=== PATIENT | female | born 1935 | race Caucasian/White ===

== ENCOUNTER → 2016-04-24 | Outpatient (CLI) | payer OTHER ==
[~2016-04-24] MED LIST: ACET-1256 PO; ASPEC81 PO; ASPI81TA28 PO; ASTN NAE; AZELASTINE NASAL NAE; CALC500C70 PO; CLR10 PO; DULO-24 PO; FLUT110A INH; FLVHFA110 INH; GABA-113 PO; GABA1CAP5 PO; HYDR25TA5 PO; KLN5X PO; LOSA50TA54 PO; METO25TA56 PO; OMEP10CA2 PO; OMEP20CA9 PO; OXYC-57 PO; POLYSOL4 OPB; ROSU40TA PO; TOFA1TAB PO
[2016-04-24 11:05] LABS: BASO % 0.4 %; BASO ABS # 0.02 K/uL (0-0.2); COMPLETE YES; EOS % 1.7 %; HEMATOCRIT 35.6 % (37-47); IG% 0.2 %; LYMPH % 25.2 %; LYMPH ABS # 1.31 K/uL (1.2-3.4); MEAN CELL VOLUME 94.2 fL (80-100); MEAN CORPUSCULAR HGB CONC 32.9 g/dl (32-36); MEAN PLATELET VOLUME 10.2 fL (7.4-10.4); MONO % 7.1 %; NEUT % 65.4 %; PLATELET COUNT 240 K/uL (130-400); RED BLOOD COUNT 3.78 M/uL (4.2-5.4)
== END | disposition home or self-care (01) ==
LOC: C.LABBC 08:36
PROVIDERS: ATTEND Anesthesiology
DX: Z01.812 Encounter for preprocedural laboratory examination (principal)

== ENCOUNTER → 2016-08-13 | Outpatient (CLI) | payer OTHER ==
[2016-08-13 13:31] LABS: BASO % 0.5 %; BASO ABS # 0.03 K/uL (0-0.2); COMPLETE YES; EOS % 2.1 %; HEMATOCRIT 36.7 % (37-47); IG% 0.4 %; LYMPH % 28.7 %; LYMPH ABS # 1.62 K/uL (1.2-3.4); MEAN CELL VOLUME 96.3 fL (80-100); MEAN CORPUSCULAR HEMOGLOBIN 31.2 pg (25-34); MEAN CORPUSCULAR HGB CONC 32.4 g/dl (32-36); MEAN PLATELET VOLUME 10.3 fL (7.4-10.4); MONO % 11.2 %; NEUT % 57.1 %; PLATELET COUNT 285 K/uL (130-400); RED BLOOD COUNT 3.81 M/uL (4.2-5.4); WHITE BLOOD COUNT 5.65 K/uL (4.8-10.8)
== END | disposition home or self-care (01) ==
LOC: C.LABBC 11:38
PROVIDERS: ATTEND Physician Assistant
DX: Z01.812 Encounter for preprocedural laboratory examination (principal)

== ENCOUNTER → 2016-10-20 | Outpatient (CLI) | payer OTHER ==
[2016-10-20 10:54] LABS: BASO % 0.4 %; BASO ABS # 0.02 K/uL (0-0.2); COMPLETE YES; EOS % 2.6 %; HEMATOCRIT 38.4 % (37-47); IG% 0.4 %; LYMPH % 30.2 %; LYMPH ABS # 1.53 K/uL (1.2-3.4); MEAN CELL VOLUME 97.5 fL (80-100); MEAN CORPUSCULAR HEMOGLOBIN 31.5 pg (25-34); MEAN CORPUSCULAR HGB CONC 32.3 g/dl (32-36); MONO % 11.8 %; NEUT % 54.6 %; PLATELET COUNT 303 K/uL (130-400); RED BLOOD COUNT 3.94 M/uL (4.2-5.4); WHITE BLOOD COUNT 5.07 K/uL (4.8-10.8)
== END | disposition home or self-care (01) ==
LOC: C.LABBC 09:11
PROVIDERS: ATTEND Anesthesiology
DX: Z01.812 Encounter for preprocedural laboratory examination (principal)

== ENCOUNTER 2016-12-11 07:29 | Emergency (ER) | payer OTHER ==
[~2016-12-11] VITALS: Ht 165.1 cm; Wt 75.2 kg
[~2016-12-11 07:29] MED LIST changes: -ASPI81TA28 PO; -ASTN NAE; -FLVHFA110 INH; -GABA1CAP5 PO; -LOSA50TA54 PO; -OMEP20CA9 PO; -OXYC-57 PO
[2016-12-11 07:35] VITALS: TEMP 37.2; Ht 165.1 cm; Wt 75.2 kg
[2016-12-11] MEDS ORDERED: ASTN NAE (07:37)
[2016-12-11] MEDS ORDERED: OMEP20CA9 PO (07:37)
[2016-12-11] MEDS ORDERED: FLVHFA110 INH (07:37)
[2016-12-11] MEDS ORDERED: ASPI81TA28 PO (07:37)
[2016-12-11] MEDS ORDERED: OXYCODONE/ACETAMINOPHEN 5-325 TAB PO STA (07:51)
[2016-12-11] MEDS ORDERED: LOSA50TA54 PO (07:54)
--- NOTE | 2016-12-11 08:05 | EMERGENCY ROOM VISIT NOTE ---
ED Visit Note First contact with patient: 07:47 CHIEF COMPLAINT: Wrist injury HISTORY OF PRESENT ILLNESS: This 81-year-old female patient presents to the emergency department complaining of pain in the left wrist after fall yesterday morning. She states that she tripped and fell onto her outstretched left hand to catch her fall. She has had increasing pain, swelling and bruising of the left hand and wrist since the injury. The patient is fairly able to move their wrist. The patient states the pain is throbbing and 9/10. She reports tingling in her thumb, second and third fingers, but no numbness. No laceration, no weakness. The patient denies any other injury. The patient is able to move their fingers and elbow without difficulty. The patient has not had a previous fracture to this wrist. The patient has taken no medications for the pain. She is right-hand dominant. REVIEW OF SYSTEMS: A 6 system review of systems was performed with positives and pertinent negatives in the HPI. ALLERGIES: Reviewed in chart MEDICATIONS: Reviewed in chart PMH: Reviewed in chart SOCIAL HISTORY: Lives at home with her . She denies tobacco, alcohol, recreational drug use. PHYSICAL EXAM: Vital Signs: Reviewed Nurse's notes, vital signs stable. GENERAL : Pleasant and cooperative, in no acute distress, but appears to be in pain, well-developed, well-nourished. NEURO: Alert and oriented to person place and time. Normal sensation to light and sharp touch. MUSCULOSKELETAL: There is no deformity of the left wrist. There is moderate tenderness, ecchymosis, and edema over the left hand wrist and distal forearm. There is snuff box tenderness. Range of motion is significantly limited due to pain. There is no tenderness of the elbow, hand or fingers. [employer] strength 4/5. Radial pulse 2+. SKIN: Normal and intact. The hand is warm and well perfused with capillary refill less than 2 seconds. IMAGING: L WRIST W/NAVICULAR MIN 3 VIEWS, L HAND MIN 3 VIEWS ROUTINE CLINICAL HISTORY: FALL YESTERDAY. Left hand and left wrist pain. COMPARISON STUDY: None. FINDINGS: Diffuse soft tissue swelling within the distal forearm and wrist. 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 Nondisplaced scaphoid waist fracture. There is also a slightly impacted fracture of the distal radius. This appears to demonstrate intra-articular extension. The ulna is intact. The distal radius fracture may demonstrate partial healing and could be subacute. Moderate osteoarthritis at the majority of the MCP joints. Soft tissue swelling within the thumb and index finger. No additional fractures identified within the left hand. IMPRESSION: 1. Nondisplaced scaphoid waist fracture. 2. Slightly impacted left distal radius fracture. This may represent a subacute/healing fracture. 3. No additional fractures within the left hand. EMERGENCY DEPARTMENT COURSE: I examined the patient. An X-ray of the left wrist was reviewed by myself and radiologist and showed acute distal radius fracture and nondisplaced scaphoid fracture. A reverse sugar tong Ortho-Glass splint was placed under my direction and the position was satisfactory. She was given a sling for comfort. Neurovascular status rechecked and intact. The patient was discharged home in good condition. I spoke over the phone with Dr. Giraldo, at [facility] orthopedics, he said the patient can come over to clinic today for evaluation. Patient was updated on all results and plan for discharge as well as her follow up with orthopedic clinic today. Patient was also instructed on return precautions should her symptoms worsen in any way, she verbalized understanding. Patient was discharged home in stable condition and ambulatory. Medication Reconciliation: I attest that I have personally reviewed the patient' s current medication list. Blood pressure screening: The patient was found to have an elevated blood pressure and was referred to their primary doctor for recheck and further treatment. I discussed patient with Dr. Carrizales, who also saw the patient and agrees with my assessment and plan. Current/Historical Medications Scheduled Acetaminophen (Tylenol), 2 TAB PO Q6 Aspirin (Aspirin Ec), 81 MG PO QAM Calcium/Vitamin D (Os-[place] 500 Plus D), 1 TAB PO QAM Gabapentin (Neurontin), 300 MG PO TID Hydrochlorothiazide (Hydrochlorothiazide), 25 MG PO 3XWK Losartan Potassium (Cozaar), 50 MG PO DAILY Metoprolol Tartrate (Lopressor) (Lopressor), 12.5 MG PO BID Omeprazole (Prilosec), 20 MG PO UD Rosuvastatin Calcium (Crestor), 40 MG PO QPM Tofacitinib Citrate (Xeljanz), 5 MG PO BID Scheduled PRN Clonazepam (Clonazepam), 0.5 MG PO HS PRN for PRN Loratadine (Claritin), 10 MG PO DAILY PRN for PRN Oxycodone/Acetaminophen 5MG/325MG (Percocet 5MG/325MG), 1-2 TABS PO every 6 hours PRN for Pain Polyethylene Glycol-Propylene (Systane), 1 DROP OPB DAILY PRN for PRN Allergies Coded Allergies: Morphine (Verified Allergy, Severe, SHORTNESS OF BREATH, 12/11/16) Shrimp (Verified Allergy, Severe, GI SYMPTOMS, 12/11/16) Sulfa Antibiotics (Verified Allergy, Intermediate, HIVES, 12/11/16) *unknown if this was an antibiotic or not- changed with [employer] update Benzonatate (Verified Allergy, Unknown, GI UPSET, 12/11/16) Codeine (Verified Allergy, Unknown, NAUSEA, 12/11/16) Lisinopril (Verified Allergy, Unknown, GI SYMPTOMS, 12/11/16) Adhesives (Verified Adverse Reaction, Intermediate, TAPE - RASH, 12/11/16) Vital Signs Date Time Temp Pulse Resp B/P (MAP) Pulse Ox O2 Delivery O2 Flow Rate FiO2 12/11/16 10:42 100 163/99 92 12/11/16 09:25 81 137/64 92 Room Air 12/11/16 07:35 37.2 106 20 165/84 95 Room Air Medications Administered Medications (Trade) Dose Ordered Sig/Jose Angel Route Start Time Stop Time Status Last Admin Dose Admin Oxycodone/ Acetaminophen (Percocet 5-325mg Tab) 1 tab NOW STAT PO 12/11/16 07:51 12/11/16 07:55 DC 12/11/16 08:00 1 TAB Tramadol HCl (Ultram Tab) 50 mg NOW STAT PO 12/11/16 09:47 12/11/16 09:48 DC 12/11/16 09:52 50 MG Departure Information Impression Primary Impression: Fracture of scaphoid of left wrist Additional Impression: Fracture of left distal radius Dispostion Home / Self-Care Condition GOOD Prescriptions Oxycodone/Acetaminophen 5MG/325MG (PERCOCET 5MG/325MG) Tab 1-2 TABS PO every 6 hours Y for Pain, #20 TAB For Initial Treatment Prov: Jumana Ellis CRNP 12/11/16 Referrals Mary Lou Leonard D.O. (PCP) Patient Instructions Distal Radius Fx, ED Fx Wrist Navicular Conf, My [facility] Additional Instructions Follow up with [facility] today at clinic. You may go straight to the clinic to be seen. Keep the splint in place, and do not get it wet. Apply ice to the wrist and keep the wrist elevated for 24-48 hrs. Percocet 1-2 tabs every 6 hours as needed for severe pain. This is a narcotic, do not drive, operate machinery, or drink alcohol while you're taking it. This medication may make you constipated, you should take a stool softener daily while you're taking it to help prevent constipation. Continue follow-up with orthopedic surgery as scheduled. Please return to the emergency Department for severe worsening pain, numbness or discoloration in your fingers, fevers or chills, or any other concerns. Problem Qualifiers Primary Impression: Fracture of scaphoid of left wrist Encounter type: initial encounter Scaphoid bone location: unspecified portion of scaphoid Fracture type: closed Fracture alignment: nondisplaced Qualified Codes: S62.002A - Unspecified fracture of navicular [scaphoid] bone of left wrist, initial encounter for closed fracture Additional Impression: Fracture of left distal radius Encounter type: initial encounter Fracture type: closed Fracture morphology : unspecified fracture morphology Qualified Codes: S52.502A - Unspecified fracture of the lower end of left radius, initial encounter for closed fracture
--- NOTE | 2016-12-11 08:43 | DIAGNOSTIC IMAGING REPORT ---
L WRIST W/NAVICULAR MIN 3 VIEWS, L HAND MIN 3 VIEWS ROUTINE CLINICAL HISTORY: FALL YESTERDAY. Left hand and left wrist pain. COMPARISON STUDY: None. FINDINGS: Diffuse soft tissue swelling within the distal forearm and wrist. 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 Nondisplaced scaphoid waist fracture. There is also a slightly impacted fracture of the distal radius. This appears to demonstrate intra-articular extension. The ulna is intact. The distal radius fracture may demonstrate partial healing and could be subacute. Moderate osteoarthritis at the majority of the MCP joints. Soft tissue swelling within the thumb and index finger. No additional fractures identified within the left hand. IMPRESSION: 1. Nondisplaced scaphoid waist fracture. 2. Slightly impacted left distal radius fracture. This may represent a subacute/healing fracture. 3. No additional fractures within the left hand. Electronically signed by: Eyad Gabriel M.D. 12/11/2016 8:42 AM Dictated Date/Time: 12/11/2016 8:37 AM
--- NOTE | 2016-12-11 09:20 | EMERGENCY ROOM VISIT NOTE ---
ED Visit Note First contact with patient: 07:47 Patient was seen by our PA/APPLICATIONS ENGINEERING MANAGER. I was involved in the patient's care and did evaluate the patient myself. I was involved in the care throughout the ER stay. Patient has a wrist fracture by film. Orthopedic follow-up is required. The patient was splinted while in the ED.
[2016-12-11] MEDS ORDERED: TRAMADOL HCL 50 MG TAB PO STA (09:47)
[2016-12-11] MEDS ORDERED: OXYC-57 PO (10:09)
[2016-12-11 10:42] VITALS: BP 163/99; PULSE 100; O2SAT 92
== END 2016-12-11 10:35 | disposition home or self-care (01) ==
LOC: C.EDB 07:31
DX: S62.002A Unspecified fracture of navicular [scaphoid] bone of left wrist, initial encounter for closed fracture (principal); S52.502A Unspecified fracture of the lower end of left radius, initial encounter for closed fracture; S60.222A Contusion of left hand, initial encounter; W01.0XXA Fall on same level from slipping, tripping and stumbling without subsequent striking against object, initial encounter; Z79.899 Other long term (current) drug therapy

== ENCOUNTER → 2017-02-26 | Outpatient (CLI) | payer OTHER ==
[~2017-02-26] MED LIST changes: -ASPEC81 PO; +ASPI81TA28 PO; -AZELASTINE NASAL NAE; -DULO-24 PO; -FLUT110A INH; +LOSA50TA54 PO; -OMEP10CA2 PO; +OMEP20CA9 PO; +OXYC-57 PO
[2017-02-26 13:41] LABS: BASO % 0.6 %; BASO ABS # 0.03 K/uL (0-0.2); COMPLETE YES; EOS % 1.7 %; HEMATOCRIT 36.4 % (37-47); IG% 0.2 %; LYMPH % 32.1 %; LYMPH ABS # 1.54 K/uL (1.2-3.4); MEAN CELL VOLUME 94.3 fL (80-100); MEAN CORPUSCULAR HEMOGLOBIN 30.3 pg (25-34); MEAN CORPUSCULAR HGB CONC 32.1 g/dl (32-36); MEAN PLATELET VOLUME 10.1 fL (7.4-10.4); MONO % 9.6 %; NEUT % 55.8 %; PLATELET COUNT 270 K/uL (130-400); RED BLOOD COUNT 3.86 M/uL (4.2-5.4)
== END | disposition home or self-care (01) ==
LOC: C.LABBC 09:26
PROVIDERS: ATTEND Anesthesiology
DX: Z01.812 Encounter for preprocedural laboratory examination (principal)

== ENCOUNTER → 2017-10-15 | Outpatient (CLI) | payer OTHER ==
[~2017-10-15] MED LIST changes: -CLR10 PO; -OXYC-57 PO; -POLYSOL4 OPB
[2017-10-15 10:39] LABS: BASO % 0.5 %; BASO ABS # 0.02 K/uL (0-0.2); EOS % 3.4 %; EOS ABS # 0.14 K/uL (0-0.5); HEMATOCRIT 36.7 % (37-47); LYMPH % 34.7 %; LYMPH ABS # 1.44 K/uL (1.2-3.4); MEAN CELL VOLUME 92.9 fL (80-100); MEAN CORPUSCULAR HEMOGLOBIN 30.4 pg (25-34); MEAN CORPUSCULAR HGB CONC 32.7 g/dl (32-36); MEAN PLATELET VOLUME 10.5 fL (7.4-10.4); MONO % 9.6 %; NEUT % 51.8 %; NEUT ABS # 2.15 K/uL (1.4-6.5); PLATELET COUNT 251 K/uL (130-400); RED CELL DISTRIBUTION WIDTH CV 14.9 % (11.5-14.5); RED CELL DISTRIBUTION WIDTH SD 50.8 fL (36.4-46.3); WHITE BLOOD COUNT 4.15 K/uL (4.8-10.8)
== END | disposition home or self-care (01) ==
LOC: C.LABBC 08:04
PROVIDERS: ATTEND Anesthesiology
DX: Z01.82 Encounter for allergy testing (principal); M54.5 Low back pain

== ENCOUNTER 2020-10-17 12:56 | Observation (INO) ==
[2020-10-17 14:33] LABS: Basophils # (auto) 0.01 K/uL (0-0.2); Basophils % (auto) 0.2 %; Eosinophils # (auto) 0.02 K/uL (0-0.5); Eosinophils % (auto) 0.3 %; Hematocrit (blood only) 36.9 % (37-47); Hemoglobin 11.8 g/dL (12.0-16.0); Immature Granulocytes # (auto) 0.03 K/uL (0.00-0.02); Immature Granulocytes % (auto) 0.5 %; Lymphocytes # (auto) 0.62 K/uL (1.2-3.4); Lymphocytes % (auto) 9.7 %; Mean Platelet Volume 10.2 fL (7.4-10.4); Monocytes # (auto) 0.96 K/uL (0.11-0.59); Neutrophils # (auto) 4.78 K/uL (1.4-6.5); Neutrophils % (auto) 74.3 %; Platelet Count 271 K/uL (130-400); RDW Coefficient of Variation 14.8 % (11.5-14.5); Red Blood Count 3.69 M/uL (4.2-5.4); White Blood Count 6.42 K/uL (4.8-10.8)
--- NOTE | 2020-10-17 14:38 | Communication Note ---
Date of Service: October 17, 2020 This patient was seen in concert with Dr. Buchanan and we discussed and agreed upon the history, physical, assessment, and plan. See attending's note for d etails. Resident Activity Tracking Resident Involvement: Resident Care Provided Care Provided: Adult ED
[2020-10-17 14:40] LABS: Albumin Level 3.5 gm/dl (3.4-5.0); BUN Creatinine Ratio 15.5 (10-20); Calcium 8.8 mg/dl (8.5-10.1); Creatinine Clr Calc Pharmacy 35.2 ml/min; Est GFR (African American) 51.1 ml/min; Est GFR (Non-African American) 44.1 ml/min; Magnesium 2.1 mg/dl (1.8-2.4); Potassium 3.8 mmol/L (3.5-5.1)
[2020-10-17 14:42] LABS: Prothrombin Time 10.3 Seconds (9.0-12.0)
[2020-10-17 14:51] LABS: Albumin Globulin Ratio 0.9 (0.9-2); Bilirubin,Total 0.4 mg/dl (0.2-1); Globulin 3.8 gm/dl (2.5-4.0); Thyroid Stimulating Hormone 0.54 uIu/ml (0.300-4.500); Total Protein 7.3 gm/dl (6.4-8.2)
--- NOTE | 2020-10-17 15:17 | CT Scan Report ---
CT head/brain wo con CLINICAL HISTORY: 85 years-old Female with bilateral lower extremity weakness. Acute lower extremity weakness TECHNIQUE: Multiple axial CT images of the head were obtained without contrast. A dose lowering tech nique was utilized adhering to the principles of ALARA. CT DOSE: 788.63 mGycm COMPARISON: None. FINDINGS: No acute intracranial hemorrhage, midline shift, intracranial mass, hydrocephalus, territorial ischem ia or abnormal extra-axial collection. Age-related involutional changes. White matter hypodensities s uggestive of chronic microvascular ischemic disease. Senescent calcifications of the lentiform nuclei . Cerebral vascular calcifications. The calvarium is intact. Prior bilateral lens repair. The paranasal sinuses, mastoid air cells, and m iddle ear cavities are clear. IMPRESSION: No acute intracranial abnormality. ACT 112: Negative or not required by law. The above report was generated using voice recognition software. It may contain grammatical, syntax o r spelling errors. Electronically signed by: Gideon Turner M.D. 10/17/2020 3:15 PM
--- NOTE | 2020-10-17 15:40 | XRay Report ---
SINGLE VIEW CHEST CLINICAL HISTORY: Generalized weakness. FINDINGS: An AP, portable, upright chest radiograph is compared to study dated 12/25/2018. An electro nathalie device projects over the lower chest. The heart is enlarged noting atherosclerotic calcification of the thoracic aorta. The pulmonary vasculature is noncongested. There is bibasilar scarring/atelect asis. No airspace consolidation or large pleural effusion is identified. No pneumothorax is seen. The skeletal structures are osteopenic. The bony thorax is grossly intact. A right shoulder arthroplasty is in place. Advanced arthritic change is seen in the left shoulder. IMPRESSION: Cardiomegaly with no acute cardiopulmonary abnormality. ACT 112: Negative or not required by law. Electronically signed by: Preston Hammonds M.D. 10/17/2020 3:38 PM
[2020-10-17] MEDS ORDERED: SODIUM CHLORIDE 0.9% 500 ML IV ONE (15:55)
[2020-10-17] MEDS ORDERED: ACETAMINOPHEN 500 MG TAB PO STA (15:55)
--- NOTE | 2020-10-17 16:05 | CT Scan Report ---
CT SCAN OF THE LUMBAR SPINE WITHOUT IV CONTRAST CLINICAL HISTORY: Bilateral lower extremity weakness. COMPARISON STUDY: MRI of the lumbar spine dated 04/10/2019. TECHNIQUE: CT scan of the lumbar spine is performed from the lower thoracic spine to the upper lumbar spine. Images are reviewed in the axial, sagittal, and coronal planes. IV contrast was not administe red for this examination. A dose lowering technique was utilized adhering to the principles of ALARA. The examination is compromised by streak artifact from extensive metallic spinal hardware. CT DOSE: 609.07 mGycm FINDINGS: The skeletal structures are osteopenic. There is a severe chronic compression deformity of L1 with minimally retropulsed fragments. A moderate chronic compression of L2 and a mild compression deformity of L4 are also unchanged. There is a moderate compression deformity of L3. This is age-inde terminant, but new from 04/10/2019. No definite acute fracture line is identified. The transverse proc esses appear intact. Vertebral body height is maintained at L5. There is straightening of the lumbar lordosis. Mild dextrocurvature is centered at L2. There is postoperative change from posterior spinal fusion seen from L2-L4. Interpedicular screws are present at all levels. Lucency around the right in terpedicular screw at L3 and both interpedicular screws at L4 suggests loosening. There is severe dis c space narrowing at L4-L5 and L5-S1. Mild disc space narrowing is seen at the remaining lumbar level s. Posterior disc osteophyte complexes are seen at all lumbar levels and likely contribute to multile zeke acquired compromise of the central canal. Advanced facet arthropathy is seen in the lower lumbar region. There is no evidence of spondylolysis. No lytic or blastic lesion is seen. A sacral stimulato r device is present within the right gluteal soft tissues. The visualized sacrum and bony pelvis appe ar intact. There are healed right posterior rib fractures. There is fatty atrophy of the paraspinous musculature. A 3 cm chronic postoperative seroma is again suggested within the posterior aspect of th e thecal sac at L3-L4. This was better seen on the 04/10/2019 MRI. There is advanced atherosclerotic c alcification of the abdominal aorta. No retroperitoneal lymphadenopathy is identified. IMPRESSION: 1. There is a moderate compression deformity of L3. This is age-indeterminant, but new from 04/10/2019 . There is no significant retropulsion of fragments at this level. Correlate for point tenderness. 2. Additional chronic compression deformities as above. 3. Spondylotic and postoperative change as above. Findings suggest lucency around the right interpedi cular screw at L3 and the interpedicular screw at L4. 4. Additional findings as above. ACT 112: Negative or not required by law. Dictated: 10/17/2020 3:21 PM Transcribed: 10/17/2020 3:53 PM Verena [id number] [email or web address] Electronically signed by: Preston Hammonds M.D. 10/17/2020 4:04 PM
--- NOTE | 2020-10-17 16:28 | Emergency Department Note ---
Impression & Plan SARS-CoV-2 positive, Weakness, Rheumatoid arthritis ED Provider Note NAME: SUNITA CARRIZALES AGE: 85 SEX: F : 1935 ARRIVES VIA: Ambulance INFORMANT: Patient, ED PROVIDER(S): Felipe Buchanan MD CHIEF COMPLAINT: weakness HPI: Sunita is an 85-year-old female with a notable past medical history of rheumatoid arthritis, lumbar spinal stenosis status post laminectomy, coronary artery disease, hypertension, osteoporosis who presented to [facility] for evaluation of weakness. Reports that yesterday night, was getting out of bed when she felt "profoundly weak" and fell out of bed. She was unable to get up. [place] like she could still move her legs, but they were extremely weak. She did not hit her head during this fall. Denies any pain. Says that over the last several days, she has had a cough. Has felt intermittent chills. Appetite has been poor. Daughter recently tested positive for Covid. Patient is fully vaccinated. Otherwise, she says she was in her normal health up until about 3 to 4 days ago. She denies any pain at present, denies any numbness or tingling, double vision, headache, nausea, vomiting, chest pain, palpitations, shortness of breath. ROS: See above HPI for pertinent positives & negatives. A total of 10 systems reviewed and were otherwise negative. PAST MEDICAL HISTORY: See Below PAST SURGICAL HISTORY: See Below FAMILY HISTORY: See Below SOCIAL HISTORY: See Below HOME MEDICATIONS: See Below ALLERGIES: See Below VITALS: See Below PHYSICAL EXAMINATION: VITAL SIGNS - Vital signs and nursing notes were reviewed. GENERAL - 85-year-old female appearing stated age who is in no acute distress. Communicates well with provider and answers questions appropriately. SKIN - Without rashes. HEAD - NC/AT. EYES - PERRL with EOMI bilaterally. Sclera anicteric. Palpebral conjunctiva pink and moist with no injection noted. EARS - No deformities of external structures noted on gross examination bilaterally. NOSE - Midline and without cyanosis. No epistaxis or purulent drainage noted. Septum midline without deviation or septal hematoma noted. MOUTH/OROPHARYNX - Without perioral cyanosis. Buccal mucosa pink and moist and without leukoplakia. Tongue midline with equal elevation of palate bilaterally. No tonsillar hypertrophy, erythema, or exudates noted. NECK - Neck with FROM. Supple to palpation. LUNGS - Chest wall symmetric without accessory muscle use, intercostals retractions, or central cyanosis. Normal vesicular breath sounds CTA B/L. No wheezes, rales, or rhonchi appreciated. CARDIAC - RRR with S1/S2. No murmur, rubs, or gallops appreciated. ABDOMEN - Abdominal contour without pulsations or visible masses. BS normoactive all four quadrants. No tenderness, palpable masses, hepatosplenomegaly, or ascites noted. EXTREMITIES - No clubbing or peripheral cyanosis. No pretibial edema present. +3/5 radial, posterior tibial, and dorsalis pedis pulses palpated throughout. +5/5 strength noted in UE/LE bilaterally. NEUROLOGIC - Cranial nerves II through XII grossly intact. Sensory intact to light touch throughout. Patellar reflexes +2/4. PSYCH - A&Ox3 and cooperates fully with examiner. Pt is very pleasant and interacts well with examiner. MEDICAL DECISION MAKING: Patient was seen and evaluated as above in room C10. Review was performed of nursing notes and vital signs. I did review pertinent previous visits and patient history. After obtaining a thorough history and physical examination the above work up was performed. This is an 85 year old female who presents to the emergency department with generalized weakness. The patient is positive for Covid. Chest chest x-ray was interpreted by me and is consistent with a viral illness. She does not have an elevation in her white blood cell count has a normal renal profile. The patient feels that she is too weak to be discharged therefore she was discussed with the hospitalist service who did agree to admit the patient. While in the department, I personally reevaluated the patient several times and each time the patient was found to be resting comfortably. The patient was educated upon management, educated upon todays findings/results, educated upon importance of follow up from today's visit, educated upon symptoms in which to return, had questions answered prior to discharge, verbalized understanding, and was discharged home in good condition. An order was placed for continuous cardiac monitoring. The monitor shows a rate of 50 with Sinus Bradycardia rhythm. The patient was evaluated during a period of high volume and high acuity during the global COVID-19 pandemic, and that diagnosis was suspected/considered upon their initial presentation. Their evaluation, treatment and testing was consistent with current guidelines for patients who present with complaints or symptoms that may be related to COVID-19. Patient was seen while provider was wearing PPE. Triage Nursing notes reviewed. Prior medical records reviewed Vital Signs: reviewed and remarkable for no significant abnormalities Differential diagnosis: Infection, dehydration, metabolic abnormality, hypo/hyperglycemia, electrolyte disturbance, anemia, hypoxia, cardiac sources, intracerebral event, toxicologic, neurologic, as well as other pathologies. ER treatment provided: See below Diagnostics interpreted by me: ECG: EKG shows a sinus rhythm with occasional PVC QTC is 433 ventricular rate of 78 EKG is compared to 12/25/2018 PVCs are now present there is no ST elevation or depression Laboratory studies: As stated above and show below. Imaging studies: See below Consultation(s): Internal Medicine ED COURSE: I have personally spent greater than 30 minutes of critical care time in the direct management of this patient. This includes bedside care, interpretation of diagnostic studies, and testing, discussion with consultants, patient, and family members, and other required patient management activities. This 30 m inutes is in excess of all separately billable procedures. Procedures: none Past Med/Surg History Medical History Acquired right foot drop Arachnoiditis CAD (coronary artery disease) Cervical radiculopathy Degenerative joint disease of knee Dyslipidemia Facet syndrome, lumbar Greater trochanteric bursitis Hypertension Left knee pain Lumbago Lumbar compression fracture L1 acute on chronic MRI 03/2019 Lumbar postlaminectomy syndrome Lumbar radiculitis Lumbar spinal stenosis Myocardial infarct, old Osteoarthritis Osteoporosis Peripheral neuropathy Pes anserinus tendonitis of right lower extremity Postoperative seroma L2-4 Rheumatoid arthritis Rheumatoid arthritis of shoulder Right knee pain Status post TKA taking shots due to bursitis Right knee pain Surgical History History of adenoidectomy History of angioplasty History of breast biopsy History of hysterectomy History of loop recorder follows with Dr Bergeron History of lumbosacral spine surgery flexible rainer and does lesi History of PTCA History of tonsillectomy History of total shoulder replacement Right S/P total knee arthroplasty Right Family History Father Myocardial infarction Brother Myocardial infarction Other Family history non-contributory Denies family history of Ovarian cancer Prostate cancer Breast cancer Colorectal cancer Social History Smoking Status: Never smoker Second Hand Exposure: No; Hx Alcohol Use: Yes Alcohol type: wine Hx Substance Use: No Preferred Language: Belgian Communication Ability: Effective Visual Impairment: No Limitations Hearing Ability: Normal Framing And Hanging Required: No Beliefs That Will Affect Care: None marital status: Current Living Situation: Spouse current occupational status: retired Feels Safe at Home: Yes Assistive Devices: Walker Allergies Allergies Allergy/AdvReac Type Severity Reaction Status Date / Time morphine Allergy Severe SHORTNESS Verified 10/17/20 14:34 OF BREATH shrimp Allergy Severe GI SYMPTOMS Verified 10/17/20 14:34 Sulfa (Sulfonamide Allergy Intermediate HIVES Verified 10/17/20 14:34 Antibiotics) benzonatate Allergy Unknown GI UPSET Verified 10/17/20 14:34 codeine Allergy Unknown NAUSEA Verified 10/17/20 14:34 lisinopril Allergy Unknown GI SYMPTOMS Verified 10/17/20 14:34 adhesive AdvReac Intermediate TAPE - RASH Verified 10/17/20 14:34 tramadol AdvReac Intermediate Nausea Verified 10/17/20 14:34 Home Meds Home Medications Medication Instructions Recorded Confirmed clonazepam 0.5 mg tablet 0.5 mg PO HS PRN tab 11/14/17 10/17/20 hydrochlorothiazide 25 mg tablet 25 mg PO MOWEFR tab 11/14/17 10/17/20 rosuvastatin 40 mg tablet (Crestor) 40 mg PO QPM 11/14/17 10/17/20 aspirin 81 mg tablet,delayed 81 mg PO MOWEFR tab 02/06/18 10/17/20 release (Adult Low Dose Aspirin) gabapentin 300 mg capsule 300 mg PO BID 12/25/18 10/17/20 gabapentin 300 mg capsule 600 mg PO HS 12/25/18 10/17/20 metoprolol succinate 25 mg 37.5 mg PO QAM 12/25/18 10/17/20 tablet,extended release 24 hr (Toprol XL) simethicone 125 mg chewable tablet 125 mg PO BID PRN 12/25/18 10/17/20 tofacitinib 11 mg tablet,extended 11 mg PO DAILY 12/25/18 10/17/20 release 24 hr (Xeljanz XR) baclofen 10 mg tablet 10 mg PO TID PRN tab 07/31/19 10/17/20 amlodipine 2.5 mg tablet 2.5 mg PO DAILY 06/10/20 10/17/20 losartan 50 mg tablet (Cozaar) 50 mg PO DAILY tab 06/21/20 10/17/20 albuterol sulfate 90 mcg/actuation 1 inh INHALATION Q4H PRN g 08/22/20 10/17/20 aerosol inhaler ascorbate calcium (vitamin C) 500 500 mg PO DAILY 08/22/20 10/17/20 mg tablet melatonin 5 mg capsule 5 mg PO HS PRN 08/22/20 10/17/20 omeprazole 20 mg capsule,delayed 40 mg PO QAM cap 08/22/20 10/17/20 release prednisone 5 mg tablet 7.5 mg PO DAILY tab 08/22/20 10/17/20 isosorbide mononitrate 30 mg 30 mg PO DAILY 10/17/20 10/17/20 tablet,extended release 24 hr metoprolol succinate 25 mg 25 mg PO HS 10/17/20 10/17/20 tablet,extended release 24 hr Previous Rx's Medication Instructions Recorded dexamethasone 6 mg tablet 6 mg PO DAILY #7 tab 10/19/20 (Decadron) Results & Data (ED) Vital Signs Vital Signs - 24 hr 10/17/20 13:03 10/17/20 14:08 10/17/20 14:29 Temperature 37.3 C Temperature Source Oral Pulse Rate 78 Pulse Rate [Apical] 81 Respiratory Rate 18 20 Blood Pressure 128/67 Blood Pressure [Right Arm] 137/66 Blood Pressure Mean 87 Blood Pressure Mean [Right Arm] 89 Pulse Oximetry 96 95 94 Oxygen Delivery Method Room Air Room Air Room Air Sepsis Recent Fever Within 48 Hours No Sepsis New/Unexplained Change in Mental Status No Sepsis Action Taken by Nursing No Action Required 10/17/20 14:40 Temperature Temperature Source Pulse Rate Pulse Rate [Apical] 86 Respiratory Rate 18 Blood Pressure Blood Pressure [Right Arm] 119/68 Blood Pressure Mean Blood Pressure Mean [Right Arm] 85 Pulse Oximetry 94 Oxygen Delivery Method Room Air Sepsis Recent Fever Within 48 Hours Sepsis New/Unexplained Change in Mental Status Sepsis Action Taken by Shelter Medications Current Medication List: was personally reviewed by me Laboratory Data Attestation: I reviewed the patient's lab results. Result diagrams: 10/18/20 06:02 10/18/20 06:02 Lab Results 10/17/20 10/17/20 10/17/20 Range/Units 13:10 13:10 13:10 WBC 6.42 (4.8-10.8) K/uL RBC 3.69 L (4.2-5.4) M/uL Hgb 11.8 L (12.0-16.0) g/dL Hct 36.9 L (37-47) % MCV 100.0 (80-100) fL MCH 32.0 (25-34) pg MCHC 32.0 (32-36) g/dL RDW Std Deviation 54.0 H (36.4-46.3) fL RDW Coeff of Bryan 14.8 H (11.5-14.5) % Plt Count 271 (130-400) K/uL MPV 10.2 (7.4-10.4) fL Immature Gran % (Auto) 0.5 % Neut % (Auto) 74.3 % Lymph % (Auto) 9.7 % Wallace % (Auto) 15.0 % Eos % (Auto) 0.3 % Baso % (Auto) 0.2 % Neut # (Auto) 4.78 (1.4-6.5) K/uL Lymph # (Auto) 0.62 L (1.2-3.4) K/uL Wallace # (Auto) 0.96 H (0.11-0.59) K/uL Eos # (Auto) 0.02 (0-0.5) K/uL Baso # (Auto) 0.01 (0-0.2) K/uL Immature Gran # (Auto) 0.03 H (0.00-0.02) K/uL ESR (0-30) mm/hr PT 10.3 (9.0-12.0) Seconds INR 1.0 (0.9-1.1) Sodium 138 (136-145) mmol/L Potassium 3.8 (3.5-5.1) mmol/L Chloride 105 (98-107) mmol/L Carbon Dioxide 27 (21-32) mmol/L Anion Gap 6.0 (3-11) BUN 18 (7-18) mg/dl Creatinine 1.14 (0.6-1.2) mg/dl Est Cr Clr Drug Dosing 35.2 ml/min Est GFR ( Amer) 51.1 ml/min Est GFR (Non-Af Amer) 44.1 ml/min BUN/Creatinine Ratio 15.5 (10-20) Glucose 99 (70-99) mg/dl Calcium 8.8 (8.5-10.1) mg/dl Magnesium 2.1 (1.8-2.4) mg/dl Total Bilirubin 0.4 (0.2-1) mg/dl AST 24 (15-37) U/L ALT 19 (12-78) U/L Alkaline Phosphatase 49 (45-117) U/L C-Reactive Protein (0-0.29) mg/dl Total Protein 7.3 (6.4-8.2) gm/dl Albumin 3.5 (3.4-5.0) gm/dl Globulin 3.8 (2.5-4.0) gm/dl Albumin/Globulin Ratio 0.9 (0.9-2) TSH 0.540 (0.300-4.500) uIu/ml COVID-19 Eval Order SARS-CoV-2 (PCR) (Negative) 10/17/20 10/17/20 10/17/20 Range/Units 13:10 13:10 13:10 WBC (4.8-10.8) K/uL RBC (4.2-5.4) M/uL Hgb (12.0-16.0) g/dL Hct (37-47) % MCV (80-100) fL MCH (25-34) pg MCHC (32-36) g/dL RDW Std Deviation (36.4-46.3) fL RDW Coeff of Bryan (11.5-14.5) % Plt Count (130-400) K/uL MPV (7.4-10.4) fL Immature Gran % (Auto) % Neut % (Auto) % Lymph % (Auto) % Wallace % (Auto) % Eos % (Auto) % Baso % (Auto) % Neut # (Auto) (1.4-6.5) K/uL Lymph # (Auto) (1.2-3.4) K/uL Wallace # (Auto) (0.11-0.59) K/uL Eos # (Auto) (0-0.5) K/uL Baso # (Auto) (0-0.2) K/uL Immature Gran # (Auto) (0.00-0.02) K/uL ESR 34 H (0-30) mm/hr PT (9.0-12.0) Seconds INR (0.9-1.1) Sodium (136-145) mmol/L Potassium (3.5-5.1) mmol/L Chloride (98-107) mmol/L Carbon Dioxide (21-32) mmol/L Anion Gap (3-11) BUN (7-18) mg/dl Creatinine (0.6-1.2) mg/dl Est Cr Clr Drug Dosing ml/min Est GFR ( Amer) ml/min Est GFR (Non-Af Amer) ml/min BUN/Creatinine Ratio (10-20) Glucose (70-99) mg/dl Calcium (8.5-10.1) mg/dl Magnesium (1.8-2.4) mg/dl Total Bilirubin (0.2-1) mg/dl AST (15-37) U/L ALT (12-78) U/L Alkaline Phosphatase (45-117) U/L C-Reactive Protein (0-0.29) mg/dl Total Protein (6.4-8.2) gm/dl Albumin (3.4-5.0) gm/dl Globulin (2.5-4.0) gm/dl Albumin/Globulin Ratio (0.9-2) TSH (0.300-4.500) uIu/ml COVID-19 Eval Order Covid19 at [facility] SARS-CoV-2 (PCR) POSITIVE A* (Negative) 10/17/20 Range/Units 13:10 WBC (4.8-10.8) K/uL RBC (4.2-5.4) M/uL Hgb (12.0-16.0) g/dL Hct (37-47) % MCV (80-100) fL MCH (25-34) pg MCHC (32-36) g/dL RDW Std Deviation (36.4-46.3) fL RDW Coeff of Bryan (11.5-14.5) % Plt Count (130-400) K/uL MPV (7.4-10.4) fL Immature Gran % (Auto) % Neut % (Auto) % Lymph % (Auto) % Wallace % (Auto) % Eos % (Auto) % Baso % (Auto) % Neut # (Auto) (1.4-6.5) K/uL Lymph # (Auto) (1.2-3.4) K/uL Wallace # (Auto) (0.11-0.59) K/uL Eos # (Auto) (0-0.5) K/uL Baso # (Auto) (0-0.2) K/uL Immature Gran # (Auto) (0.00-0.02) K/uL ESR (0-30) mm/hr PT (9.0-12.0) Seconds INR (0.9-1.1) Sodium (136-145) mmol/L Potassium (3.5-5.1) mmol/L Chloride (98-107) mmol/L Carbon Dioxide (21-32) mmol/L Anion Gap (3-11) BUN (7-18) mg/dl Creatinine (0.6-1.2) mg/dl Est Cr Clr Drug Dosing ml/min Est GFR ( Amer) ml/min Est GFR (Non-Af Amer) ml/min BUN/Creatinine Ratio (10-20) Glucose (70-99) mg/dl Calcium (8.5-10.1) mg/dl Magnesium (1.8-2.4) mg/dl Total Bilirubin (0.2-1) mg/dl AST (15-37) U/L ALT (12-78) U/L Alkaline Phosphatase (45-117) U/L C-Reactive Protein 2.89 H (0-0.29) mg/dl Total Protein (6.4-8.2) gm/dl Albumin (3.4-5.0) gm/dl Globulin (2.5-4.0) gm/dl Albumin/Globulin Ratio (0.9-2) TSH (0.300-4.500) uIu/ml COVID-19 Eval Order SARS-CoV-2 (PCR) (Negative) Administered Medications Discontinued Medications Acetaminophen (Acetaminophen 500 Mg Tab) 1,000 mg PO NOW STA Stop: 10/17/20 15:56 Last Admin: 10/17/20 16:08 Dose: 1,000 mg Documented by: [id number] Acetaminophen (Acetaminophen 325 Mg Tab) 650 mg PO Q4H PRN PRN Reason: Pain or Fever Stop: 11/16/20 18:12 Last Admin: 10/19/20 06:11 Dose: 650 mg Documented by: [id number] Amlodipine Besylate (Amlodipine Besylate 5 Mg Tab) 2.5 mg PO DAILY [facility] Stop: 11/17/20 08:59 Last Admin: 10/19/20 08:15 Dose: 2.5 mg Documented by: [id number] Admin: 10/18/20 07:57 Dose: 2.5 mg Documented by: [id number] Ascorbic Acid (Ascorbic Acid 500 Mg Tab) 500 mg PO DAILY [facility] Stop: 11/17/20 08:59 Last Admin: 10/19/20 08:16 Dose: 500 mg Documented by: [id number] Admin: 10/18/20 07:57 Dose: 500 mg Documented by: [id number] Aspirin (Aspirin 81 Mg Ectab) 81 mg PO [id number] [facility] Stop: 11/16/20 18:12 Last Admin: 10/19/20 08:16 Dose: 81 mg Documented by: [id number] Admin: 10/17/20 20:55 Dose: Not Given Documented by: [id number] Clonazepam (Clonazepam 0.5 Mg Tab) 0.5 mg PO HS PRN PRN Reason: Anxiety Stop: 11/16/20 18:12 Last Admin: 10/18/20 20:43 Dose: 0.5 mg Documented by: [id number] Admin: 10/17/20 21:02 Dose: 0.5 mg Documented by: [id number] Enoxaparin Sodium (Enoxaparin Inj 40 Mg/0.4 Ml Syr) 40 mg SQ Q12H [facility] Stop: 11/16/20 18:12 Last Admin: 10/19/20 06:04 Dose: 40 mg Documented by: [id number] Admin: 10/18/20 17:53 Dose: 40 mg Documented by: [id number] Admin: 10/18/20 06:01 Dose: 40 mg Documented by: [id number] Admin: 10/17/20 21:01 Dose: 40 mg Documented by: [id number] Gabapentin (Gabapentin 600 Mg Tab) 600 mg PO HS [facility] Stop: 11/16/20 20:59 Last Admin: 10/18/20 20:44 Dose: 600 mg Documented by: [id number] Admin: 10/17/20 21:02 Dose: 600 mg Documented by: [id number] Gabapentin (Gabapentin 300 Mg Cap) 300 mg PO BID@0900,1200 [facility] Stop: 11/17/20 08:59 Last Admin: 10/19/20 11:59 Dose: 300 mg Documented by: [id number] Admin: 10/19/20 08:16 Dose: 300 mg Documented by: [id number] Admin: 10/18/20 12:16 Dose: 300 mg Documented by: [id number] Admin: 10/18/20 07:59 Dose: 300 mg Documented by: [id number] Guaifenesin (Guaifenesin 600 Mg Tabcr) 600 mg PO Q12 [facility] Stop: 11/16/20 20:59 Last Admin: 10/19/20 08:16 Dose: 600 mg Documented by: [id number] Admin: 10/18/20 20:44 Dose: 600 mg Documented by: [id number] Admin: 10/18/20 07:59 Dose: 600 mg Documented by: [id number] Admin: 10/17/20 21:02 Dose: 600 mg Documented by: [id number] Sodium Chloride (Nss) 500 mls @ 999 mls/hr IV .Q31M ONE Stop: 10/17/20 16:25 Last Infusion: 10/17/20 17:12 Dose: 0 mls/hr Documented by: [id number] Admin: 10/17/20 16:08 Dose: 999 mls/hr Documented by: [id number] Dexamethasone 6 mg/ Syringe 1.5 mls @ 1 mls/min IV DAILY [facility] Stop: 10/27/20 18:12 Last Admin: 10/19/20 08:15 Dose: 1 mls/min Documented by: [id number] Admin: 10/18/20 07:58 Dose: 1 mls/min Documented by: [id number] Admin: 10/17/20 21:01 Dose: 1 mls/min Documented by: [id number] Potassium Chloride/Sodium Chloride (Normal Saline W/20 Meq Kcl) 20 meq in 1,000 mls @ 75 mls/hr IV .[id number] PAULA Stop: 10/18/20 08:19 Last Infusion: 10/18/20 11:13 Dose: 0 mls/hr Documented by: [id number] Admin: 10/17/20 21:02 Dose: 75 mls/hr Documented by: [id number] Isosorbide Mononitrate (Isosorbide Wallace Extended Rel 30 Mg Tabcr) 30 mg PO DAILY [facility] Stop: 11/17/20 08:59 Last Admin: 10/19/20 08:16 Dose: 30 mg Documented by: [id number] Admin: 10/18/20 07:59 Dose: 30 mg Documented by: [id number] Losartan Potassium (Losartan Potassium 50 Mg Tab) 50 mg PO DAILY [facility] Stop: 11/17/20 08:59 Last Admin: 10/19/20 08:16 Dose: 50 mg Documented by: [id number] Admin: 10/18/20 07:59 Dose: 50 mg Documented by: [id number] Melatonin (Melatonin 3 Mg Tab) 3 mg PO HS PRN PRN Reason: Sleep Stop: 11/16/20 18:12 Last Admin: 10/17/20 21:02 Dose: 3 mg Documented by: [id number] Metoprolol Succinate (Metoprolol Succ 25mg Ext Rel Tab) 37.5 mg PO QAM [facility] Stop: 11/17/20 08:59 Last Admin: 10/19/20 08:17 Dose: 37.5 mg Documented by: [id number] Admin: 10/18/20 07:58 Dose: 37.5 mg Documented by: [id number] Metoprolol Succinate (Metoprolol Succ 25mg Ext Rel Tab) 25 mg PO HS [facility] Stop: 11/16/20 20:59 Last Admin: 10/18/20 20:45 Dose: 25 mg Documented by: [id number] Admin: 10/17/20 21:02 Dose: 25 mg Documented by: [id number] Pantoprazole Sodium (Pantoprazole 40 Mg Tab) 40 mg PO QAM [facility] Stop: 11/17/20 08:59 Last Admin: 10/19/20 08:16 Dose: 40 mg Documented by: [id number] Admin: 10/18/20 07:59 Dose: 40 mg Documented by: [id number] Rosuvastatin Calcium (Rosuvastatin Calcium 20 Mg Tab) 40 mg PO QPM [facility] Stop: 11/16/20 20:59 Last Admin: 10/18/20 20:41 Dose: 40 mg Documented by: [id number] Admin: 10/17/20 21:02 Dose: 40 mg Documented by: [id number] Imaging Data Radiologist's Impression: Chest X-Ray 10/17/20 14:20 SINGLE VIEW CHEST CLINICAL HISTORY: Generalized weakness. FINDINGS: An AP, portable, upright chest radiograph is compared to study dated 12/25/2018. An electronic device projects over the lower chest. The heart is enlarged noting atherosclerotic calcification of the thoracic aorta. The pulm onary vasculature is noncongested. There is bibasilar scarring/atelectasis. No airspace consolidation or large pleural effusion is identified. No pneumothorax is seen. The skeletal structures are osteopenic. The bony thorax is grossly intact. A right shoulder arthroplasty is in place. Advanced arthritic change is seen in the left shoulder. IMPRESSION: Cardiomegaly with no acute cardiopulmonary abnormality. ACT 112: Negative or not required by law. Electronically signed by: Preston Hammonds M.D. 10/17/2020 3:[address] 10/17/20 14:26 CT head/brain wo con CLINICAL HISTORY: 85 years-old Female with bilateral lower extremity weakness. Acute lower extremity weakness TECHNIQUE: Multiple axial CT images of the head were obtained without contrast. A dose lowering technique was utilized adhering to the principles of ALARA. CT DOSE: 788.63 mGycm COMPARISON: None. FINDINGS: No acute intracranial hemorrhage, midline shift, intracranial mass, hydrocephalus, territorial ischemia or abnormal extra-axial collection. Age- related involutional changes. White matter hypodensities suggestive of chronic microvascular ischemic disease. Senescent calcifications of the lentiform nuclei. Cerebral vascular calcifications. The calvarium is intact. Prior bilateral lens repair. The paranasal sinuses, mastoid air cells, and middle ear cavities are clear. IMPRESSION: No acute intracranial abnormality. ACT 112: Negative or not required by law. The above report was generated using voice recognition software. It may contain grammatical, syntax or spelling errors. Electronically signed by: Gideon Turner M.D. 10/17/2020 3:[address] 10/17/20 14:26 CT SCAN OF THE LUMBAR SPINE WITHOUT IV CONTRAST CLINICAL HISTORY: Bilateral lower extremity weakness. COMPARISON STUDY: MRI of the lumbar spine dated 04/10/2019. TECHNIQUE: CT scan of the lumbar spine is performed from the lower thoracic spine to the upper lumbar spine. Images are reviewed in the axial, sagittal, and coronal planes. IV contrast was not administered for this examination. A dose lowering technique was utilized adhering to the principles of ALARA. The examination is compromised by streak artifact from extensive metallic spinal hardware. CT DOSE: 609.07 mGycm FINDINGS: The skeletal structures are osteopenic. There is a severe chronic compression deformity of L1 with minimally retropulsed fragments. A moderate chronic compression of L2 and a mild compression deformity of L4 are also unchanged. There is a moderate compression deformity of L3. This is age- indeterminant, but new from 04/10/2019. No definite acute fracture line is identified. The transverse processes appear intact. Vertebral body height is maintained at L5. There is straightening of the lumbar lordosis. Mild dextr ocurvature is centered at L2. There is postoperative change from posterior spinal fusion seen from L2-L4. Interpedicular screws are present at all levels. Lucency around the right interpedicular screw at L3 and both interpedicular screws at L4 suggests loosening. There is severe disc space narrowing at L4-L5 and L5-S1. Mild disc space narrowing is seen at the remaining lumbar levels. Posterior disc osteophyte complexes are seen at all lumbar levels and likely contribute to multilevel acquired compromise of the central canal. Advanced facet arthropathy is seen in the lower lumbar region. There is no evidence of spondylolysis. No lytic or blastic lesion is seen. A sacral stimulator device is present within the right gluteal soft tissues. The visualized sacrum and bony pelvis appear intact. There are healed right posterior rib fractures. There is fatty atrophy of the paraspinous musculature. A 3 cm chronic postoperative seroma is again suggested within the posterior aspect of the thecal sac at L3- L4. This was better seen on the 04/10/2019 MRI. There is advanced atherosclerotic calcification of the abdominal aorta. No retroperitoneal lymphadenopathy is identified. IMPRESSION: 1. There is a moderate compression deformity of L3. This is age-indeterminant, but new from 04/10/2019. There is no significant retropulsion of fragments at th is level. Correlate for point tenderness. 2. Additional chronic compression deformities as above. 3. Spondylotic and postoperative change as above. Findings suggest lucency around the right interpedicular screw at L3 and the interpedicular screw at L4. 4. Additional findings as above. ACT 112: Negative or not required by law. Dictated: 10/17/2020 3:21 PM Transcribed: 10/17/2020 3:53 PM Verena [id number] LOPEZ_Lester Electronically signed by: Preston Hammonds M.D. 10/17/2020 4:04 PM Discharge Plan Visit Data Chief Complaint: Weakness ED Provider: Felipe Buchanan ED Midlevel Provider: Murtaza Collins Discharge Problem: SARS-CoV-2 positive, Weakness, Rheumatoid arthritis Patient Disposition: Admitted As Inpatient Condition: Good Discharge Instructions Interventions: ED Discharge Assessment Last Done: 10/17/20 18:00 Discharge Problem: Rheumatoid arthritis Qualifiers: Rheumatoid arthritis location: unspecified site Rheumatoid factor presence: unspecified presence Qualified Code(s): M06.9 - Rheumatoid arthritis, unspecified
--- NOTE | 2020-10-17 17:26 | History & Physical Report ---
Date of Service October 17, 2020 Assessment & Plan (1) Fall: (2) Weakness: (3) Lumbar compression fracture: (4) SARS-CoV-2 positive: (5) CAD (coronary artery disease): (6) Hypertension: (7) Dyslipidemia: (8) Lumbar spinal stenosis: (9) Rheumatoid arthritis: Plan: This is a 85-year-old female who has significant past medical history for CAD, HTN, HLD, chronic rheumatoid arthritis on immunosuppressive therapy, AAA, history of nonsustained V. tach on event monitor, CKD stage III, lumbar spinal stenosis status post laminectomy, peripheral nerve stimulator secondary to fecal incontinence, polyneuropathy who presents ED today secondary to weakness and inability to ambulate. Admit to PCU for close monitoring Fall/Weakness/L3 compression fx known LSS s/p lumbar surgery in past ? if weakness 2/2 to sars-cov2 vs lumbar spine pathology abnormal lumbar spine CT with lucency around Interpedicular screw on right at L3 and L4 Compression fx noted at L3, unknown if old or new, pt c/o chronic back pain but is unchanged consult Dr. Dukes consult PT/OT Sars-COV 2 + with respiratory sx known exposure 2 weeks prior with partially vaccinated daughter Patient is fully vaccinated Cough for the past 3 to 4 days, weakness, chills and ill feeling Placed on dexamethasone 6 mg IV daily, prn albuterol, incentive spirometry muccinex for cough Monitor oxygen saturations closely Current chest x-ray negative for acute abnormality ESR and CRP elevated Low threshold to start IV remdesivir if symptoms worsen or patient develops hypoxia CAD/HTN/HLD follows [facility] continue asa, coreg, imdur, crestor, losartan, metoprolol on amlodipine and hctz for HTN - hold HCTZ due to mild renal insuff pt has LINQ monitor in place due to prior hx of syncope and NSVT Acute on Chronic Renal Insufficiency stage 3 baseline cr 0.8-0.9 bun/cr 18 and 1.14 gentle IVF x 1 L repeat labs in a.m. Chronic Rheumatoid Arthritis hold oral prednisone and xeljanz resume when able Chronic polyneuropathy continue gabapentin DVT ppx: Lovenox 40mg SQ Q12 (covid protocol) FULL CODE PCP: Kathya Stein Pt was seen and examined in collaboration with Dr. Mcdonald, please see addendum History of Present Illness Chief Complaint: Inability to get up off ground prior to arrival. Primary Care Provider: Fiona Stein DO This is a 85-year-old female who has significant past medical history for CAD, HTN, HLD, chronic rheumatoid arthritis on immunosuppressive therapy, AAA, history of nonsustained V. tach on event monitor, CKD stage III, lumbar spinal stenosis status post laminectomy, peripheral nerve stimulator secondary to fecal incontinence, polyneuropathy who presents ED today secondary to weakness and inability to ambulate. Patient admits to not feeling well yesterday. Today when she went to bent over to pick something up beside the bed she generally felt weak and lowered herself to the ground. She was unable to get up on her own and was unable to get her up therefore EMS was summoned. She was in her normal state of health approximately 2 to 3 days ago. She developed a wet cough over the past 3 to 4 days. She does of a known Covid exposure with her daughter approximately 2 weeks ago who tested positive. Her daughter is partially vaccinated. Patient is fully vaccinated. She also complains of intermittent chills, but denies documented fever, sweats, lightheadedness, dizziness, syncope, chest pain, shortness of breath, nausea, vomiting, abdominal pain, dysuria, increased urgency or frequency with urination or diarrhea. She does have chronic lumbar pain but is at baseline. She also complains of dyspnea on exertion especially when walking up steps, but this is unchanged. She denies any pain radiating down her lower extremities but does complain of profound weakness. She denies any recent trauma or fall. In ED patient made hemodynamically stable and is not requiring any oxygen. She did test positive for COVID-19. She mild elevation ESR 34 and CRP 2.89. Mild ovation renal function with BUN 18 creatinine 1.14. Her chest x-ray is negative for acute abnormality. Lumbar spine CT notable for moderate compression deformity of L3, age-indeterminate but new from 04/10/2019. Additional chronic pressure deformities as above. Also spondylitic and postoperative changes findings suggestive of lucency around the right interpedicular screw at L3 and interpedicular screw at L4. Allergies Allergy/AdvReac Type Severity Reaction Status Date / Time morphine Allergy Severe SHORTNESS Verified 10/17/20 14:34 OF BREATH shrimp Allergy Severe GI SYMPTOMS Verified 10/17/20 14:34 Sulfa (Sulfonamide Allergy Intermediate HIVES Verified 10/17/20 14:34 Antibiotics) benzonatate Allergy Unknown GI UPSET Verified 10/17/20 14:34 codeine Allergy Unknown NAUSEA Verified 10/17/20 14:34 lisinopril Allergy Unknown GI SYMPTOMS Verified 10/17/20 14:34 adhesive AdvReac Intermediate TAPE - RASH Verified 10/17/20 14:34 tramadol AdvReac Intermediate Nausea Verified 10/17/20 14:34 Home Medications Medication Instructions Recorded Confirmed Type clonazepam 0.5 mg tablet 0.5 mg PO HS PRN tab 11/14/17 10/17/20 History hydrochlorothiazide 25 mg tablet 25 mg PO MOWEFR tab 11/14/17 10/17/20 History rosuvastatin 40 mg tablet (Crestor) 40 mg PO QPM 11/14/17 10/17/20 History aspirin 81 mg tablet,delayed 81 mg PO MOWEFR tab 02/06/18 10/17/20 History release (Adult Low Dose Aspirin) gabapentin 300 mg capsule 300 mg PO BID 12/25/18 10/17/20 History gabapentin 300 mg capsule 600 mg PO HS 12/25/18 10/17/20 History metoprolol succinate 25 mg 37.5 mg PO QAM 12/25/18 10/17/20 History tablet,extended release 24 hr (Toprol XL) simethicone 125 mg chewable tablet 125 mg PO BID PRN 12/25/18 10/17/20 History tofacitinib 11 mg tablet,extended 11 mg PO DAILY 12/25/18 10/17/20 History release 24 hr (Xeljanz XR) baclofen 10 mg tablet 10 mg PO TID PRN tab 07/31/19 10/17/20 History amlodipine 2.5 mg tablet 2.5 mg PO DAILY 06/10/20 10/17/20 History losartan 50 mg tablet (Cozaar) 50 mg PO DAILY tab 06/21/20 10/17/20 History albuterol sulfate 90 mcg/actuation 1 inh INHALATION Q4H PRN g 08/22/20 10/17/20 History aerosol inhaler ascorbate calcium (vitamin C) 500 500 mg PO DAILY 08/22/20 10/17/20 History mg tablet melatonin 5 mg capsule 5 mg PO HS PRN 08/22/20 10/17/20 History omeprazole 20 mg capsule,delayed 40 mg PO QAM cap 08/22/20 10/17/20 History release prednisone 5 mg tablet 7.5 mg PO DAILY tab 08/22/20 10/17/20 History isosorbide mononitrate 30 mg 30 mg PO DAILY 10/17/20 10/17/20 History tablet,extended release 24 hr metoprolol succinate 25 mg 25 mg PO HS 10/17/20 10/17/20 History tablet,extended release 24 hr Past Med/Surg History Medical History (Updated 10/17/20 @ 17:43 by Paige Stern PA-C) Acquired right foot drop Arachnoiditis CAD (coronary artery disease) Cervical radiculopathy Degenerative joint disease of knee Dyslipidemia Facet syndrome, lumbar Greater trochanteric bursitis Hypertension Left knee pain Lumbago Lumbar compression fracture L1 acute on chronic MRI 03/2019 Lumbar postlaminectomy syndrome Lumbar radiculitis Lumbar spinal stenosis Myocardial infarct, old Osteoarthritis Osteoporosis Peripheral neuropathy Pes anserinus tendonitis of right lower extremity Postoperative seroma L2-4 Rheumatoid arthritis Rheumatoid arthritis of shoulder Right knee pain Status post TKA taking shots due to bursitis Right knee pain Surgical History History of adenoidectomy History of angioplasty History of breast biopsy History of hysterectomy History of loop recorder follows with Dr Bergeron History of lumbosacral spine surgery flexible rainer and does zoltan History of PTCA History of tonsillectomy History of total shoulder replacement Right S/P total knee arthroplasty Right Family History Father Myocardial infarction Brother Myocardial infarction Other Family history non-contributory Denies family history of Ovarian cancer Prostate cancer Breast cancer Colorectal cancer Social History Smoking Status: Never smoker Second Hand Exposure: No; Hx Alcohol Use: Yes Alcohol type: wine Hx Substance Use: No Preferred Language: [place] Communication Ability: Effective Visual Impairment: No Limitations Hearing Ability: Normal Records And Information Manager Required: No Beliefs That Will Affect Care: None marital status: Current Living Situation: Spouse current occupational status: retired Feels Safe at Home: Yes Assistive Devices: Glasses Review of Systems Review of Systems: All systems reviewed & are unremarkable except as noted in HPI & below Physical Exam Physical Exam: Constitutional: WD/WN, appears well, nontoxic vitals as above, NAD, sitting up in bed, pleasant, conversing easily Head: Normocephalic, Atraumatic Eyes: PERRL, conjunctivae normal, anicteric sclerae ENMT: external ear and nose normal, oropharynx normal Neck: trachea midline, no thyromegaly normal visual inspection Respiratory: normal respiratory effort, lungs clear to auscultation, no wheeze, rales, rhonchi. Normal insp/exp effort, no accessory muscle use Cardiovascular: RRR, no murmur, no edema Vessels: no JVD or carotid bruit Chest: normal inspection of chest Abdomen: normal bowel sounds, soft, nontender, no hepatosplenomegaly Musculoskeletal: no cyanosis or clubbing, poor active range of motion to bilateral lower extremities, strength to bilateral extremities 4/5, good plantar flexion, diminished dorsiflexion, good active range of motion to upper extremities and strength 5/5, Skin: ecchymosis to b/l pre tibial surface, pt admits to being chronic, no rashes, warm and dry normal turgor Neurologic: PERRL, EOMI, accommodation nl, no face palsy, no dysarthria CN's II-XI intact bilaterally and moves all extremities Psychiatric: A+Ox3, euthymic affect Lymphatic: no cervical or axillary lymphadenopathy : deferred Results & Data Results & Data ([facility]) Vital Signs (Past 12 Hours) Vital Signs Temp Pulse Pulse Resp BP BP Pulse Ox 10/17/20 17:00 73 25 H 10/17/20 16:31 79 21 91 10/17/20 16:01 79 22 126/87 94 10/17/20 15:30 76 22 128/75 94 10/17/20 14:40 86 18 119/68 94 10/17/20 14:29 94 10/17/20 14:08 81 20 137/66 95 10/17/20 13:03 37.3 C 78 18 128/67 96 Diagnostic Findings Chest X-Ray 10/17/20 14:20 SINGLE VIEW CHEST CLINICAL HISTORY: Generalized weakness. FINDINGS: An AP, portable, upright chest radiograph is compared to study dated 12/25/2018. An electronic device projects over the lower chest. The heart is enlarged noting atherosclerotic calcification of the thoracic aorta. The pulmonary vasculature is noncongested. There is bibasilar scarring/atelectasis. No airspace consolidation or large pleural effusion is identified. No pneumothorax is seen. The skeletal structures are osteopenic. The bony thorax is grossly intact. A right shoulder arthroplasty is in place. Advanced arthritic change is seen in the left shoulder. IMPRESSION: Cardiomegaly with no acute cardiopulmonary abnormality. ACT 112: Negative or not required by law. Electronically signed by: Preston Hammonds M.D. 10/17/2020 3:[address] 10/17/20 14:26 CT head/brain wo con CLINICAL HISTORY: 85 years-old Female with bilateral lower extremity weakness. Acute lower extremity weakness TECHNIQUE: Multiple axial CT images of the head were obtained without contrast. A dose lowering technique was utilized adhering to the principles of ALARA. CT DOSE: 788.63 mGycm COMPARISON: None. FINDINGS: No acute intracranial hemorrhage, midline shift, intracranial mass, hydrocephalus, territorial ischemia or abnormal extra-axial collection. Age- related involutional changes. White matter hypodensities suggestive of chronic microvascular ischemic disease. Senescent calcifications of the lentiform nuclei. Cerebral vascular calcifications. The calvarium is intact. Prior bilateral lens repair. The paranasal sinuses, mastoid air cells, and middle ear cavities are clear. IMPRESSION: No acute intracranial abnormality. ACT 112: Negative or not required by law. The above report was generated using voice recognition software. It may contain grammatical, syntax or spelling errors. Electronically signed by: Gideon Turner M.D. 10/17/2020 3:[address] 10/17/20 14:26 CT SCAN OF THE LUMBAR SPINE WITHOUT IV CONTRAST CLINICAL HISTORY: Bilateral lower extremity weakness. COMPARISON STUDY: MRI of the lumbar spine dated 04/10/2019. TECHNIQUE: CT scan of the lumbar spine is performed from the lower thoracic spine to the upper lumbar spine. Images are reviewed in the axial, sagittal, and coronal planes. IV contrast was not administered for this examination. A dose lowering technique was utilized adhering to the principles of ALARA. The examination is compromised by streak artifact from extensive metallic spinal hardware. CT DOSE: 609.07 mGycm FINDINGS: The skeletal structures are osteopenic. There is a severe chronic com pression deformity of L1 with minimally retropulsed fragments. A moderate chronic compression of L2 and a mild compression deformity of L4 are also unchanged. There is a moderate compression deformity of L3. This is age- indeterminant, but new from 04/10/2019. No definite acute fracture line is identified. The transverse processes appear intact. Vertebral body height is maintained at L5. There is straightening of the lumbar lordosis. Mild dextrocurvature is centered at L2. There is postoperative change from posterior spinal fusion seen from L2-L4. Interpedicular screws are present at all levels. Lucency around the right interpedicular screw at L3 and both interpedicular screws at L4 suggests loosening. There is severe disc space narrowing at L4-L5 and L5-S1. Mild disc space narrowing is seen at the remaining lumbar levels. Posterior disc osteophyte complexes are seen at all lumbar levels and likely contribute to multilevel acquired compromise of the central canal. Advanced facet arthropathy is seen in the lower lumbar region. There is no evidence of spondylolysis. No lytic or blastic lesion is seen. A sacral stimulator device is present within the right gluteal soft tissues. The visualized sacrum and bony pelvis appear intact. There are healed right posterior rib fractures. There is fatty atrophy of the paraspinous musculature. A 3 cm chronic postoperative seroma is again suggested within the posterior aspect of the thecal sac at L3- L4. This was better seen on the 04/10/2019 MRI. There is advanced atherosclerotic calcification of the abdominal aorta. No retroperitoneal lymphadenopathy is identified. IMPRESSION: 1. There is a moderate compression deformity of L3. This is age-indeterminant, but new from 04/10/2019. There is no significant retropulsion of fragments at this level. Correlate for point tenderness. 2. Additional chronic compression deformities as above. 3. Spondylotic and postoperative change as above. Findings suggest lucency around the right interpedicular screw at L3 and the interpedicular screw at L4. 4. Additional findings as above. ACT 112: Negative or not required by law. Dictated: 10/17/2020 3:21 PM Transcribed: 10/17/2020 3:53 PM Verena [id number] Devin Electronically signed by: Preston Hammonds M.D. 10/17/2020 4:04 PM Medications Administered Medication List Discontinued Medications Acetaminophen (Acetaminophen 500 Mg Tab) 1,000 mg PO NOW STA Stop: 10/17/20 15:56 Last Admin: 10/17/20 16:08 Dose: 1,000 mg Documented by: [id number] Sodium Chloride (Nss) 500 mls @ 999 mls/hr IV .Q31M ONE Stop: 10/17/20 16:25 Last Infusion: 10/17/20 17:12 Dose: 0 mls/hr Documented by: [id number] Admin: 10/17/20 16:08 Dose: 999 mls/hr Documented by: [id number] ECG Rate (beats per minute): 78 Rhythm: normal sinus Findings: + PVC COVID-19 Results Results COVID-19 Adm Lab Results: RBC 3.69 M/uL (4.2-5.4) L 10/17/20 WBC 6.42 K/uL (4.8-10.8) 10/17/20 Hgb 11.8 g/dL (12.0-16.0) L 10/17/20 Hct 36.9 % (37-47) L 10/17/20 Plt Count 271 K/uL (130-400) 10/17/20 Neutrophils (%) (Auto) 74.3 % 10/17/20 Lymphocytes (%) (Auto) 9.7 % 10/17/20 Monocytes # (Auto) 0.96 K/uL (0.11-0.59) H 10/17/20 Eosinophils # (Auto) 0.02 K/uL (0-0.5) 10/17/20 Immature Granulocyte % (Auto) 0.5 % 10/17/20 Neutrophils # (Auto) 4.78 K/uL (1.4-6.5) 10/17/20 Lymphocytes # (Auto) 0.62 K/uL (1.2-3.4) L 10/17/20 Monocytes # (Auto) 0.96 K/uL (0.11-0.59) H 10/17/20 Eosinophils # (Auto) 0.02 K/uL (0-0.5) 10/17/20 Basophils # (Auto) 0.01 K/uL (0-0.2) 10/17/20 Immature Granulocyte # (Auto) 0.03 K/uL (0.00-0.02) H 10/17/20 Na 138 mmol/L (136-145) 10/17/20 K 3.8 mmol/L (3.5-5.1) 10/17/20 CO2 27 mmol/L (21-32) 10/17/20 Anion Gap 6.0 (3-11) 10/17/20 BUN 18 mg/dl (7-18) 10/17/20 Creatinine 1.14 mg/dl (0.6-1.2) 10/17/20 BUN/Creatinine Ratio 15.5 (10-20) 10/17/20 Glucose Level 99 mg/dl (70-99) 10/17/20 Ca 8.8 mg/dl (8.5-10.1) 10/17/20 Total Bilirubin 0.4 mg/dl (0.2-1) 10/17/20 AST/SGOT 24 U/L (15-37) 10/17/20 ALT/SGPT 19 U/L (12-78) 10/17/20 Alkaline Phosphatase 49 U/L (45-117) 10/17/20 Total Protein 7.3 gm/dl (6.4-8.2) 10/17/20 Albumin 3.5 gm/dl (3.4-5.0) 10/17/20 Globulin 3.8 gm/dl (2.5-4.0) 10/17/20 Albumin/Globulin Ratio 0.9 (0.9-2) 10/17/20 CRP 2.89 mg/dl (0-0.29) H 10/17/20 INR 1.0 (0.9-1.1) 10/17/20 COVID-19 PCR POSITIVE (Negative) A* 10/17/20 Chest X-Ray 10/17/20 Code Status & VTE Plan Code Status Full Code VTE Prophylaxis Plan VTE Prophylaxis will be ordered: Yes Supervising Physician Co-Signing Physician Notes Attending addendum The patient was seen and examined in telemetry unit and Covky room She has been very weak and lethargic for the last 2 to 3 days that she could not get up from floor following a fall doubt any significant injury She has been Covid vaccinated and exposed to her daughter with Covid infection Denies any shortness of breath and her cough but has profound weakness On examination Lying in bed comfortably Hemodynamically stable with 94% saturation on room air Chest-clear to auscultate bilaterally Heart-S1, S2. 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 She has bilateral weak legs with neuropathy mainly in the right side Her admission labs, imaging studies and EKG reviewed Profound weakness with history of back surgery years ago Weakness could be secondary to ongoing back problem and are complicated by COVID-19 virus infection Does not have any desaturation on room air so will not give any remdesivir She will be given dexamethasone and her rheumatoid arthritis medications will be on hold Orthospine has been consulted Agree with assessment and plan as outlined above by PROSPER [address] (1) Lumbar compression fracture Lumbar vertebra fracture level: L1
[2020-10-17] MEDS ORDERED: ALBUTEROL HFA 8 GM INHALER INH PRN ×2 (17:33→18:13)
--- NOTE | 2020-10-17 18:12 | Electrocardiogram Report ---
Test Reason : Blood Pressure : / mmHG Vent. Rate : 078 BPM Atrial Rate : 078 BPM P-R Int : 156 ms QRS Dur : 080 ms QT Int : 380 ms P-R-T Axes : 068 023 014 degrees QTc Int : 433 ms Sinus rhythm with occasional Premature ventricular complexes Otherwise normal ECG When compared with ECG of 25-DEC-2018 08:51, Premature ventricular complexes are now Present T wave amplitude has decreased in Anterior leads Confirmed by Manoj Myles ([id number]) on 10/17/2020 6:11:43 PM Referred By: REFERRED SELF Confirmed By:Gurpreet Myles
[2020-10-17] MEDS ORDERED: MAGNESIUM HYDROXIDE SUSP 30 ML UDC PO PRN (18:13)
[2020-10-17] MEDS ORDERED: POLYETHYLENE (MIRALAX) 17 GM PACK PO PRN (18:13)
[2020-10-17] MEDS ORDERED: ONDANSETRON INJ 2 MG/ML 2 ML VIAL IV PRN (18:13)
[2020-10-17] MEDS ORDERED: MELATONIN 3 MG TAB PO PRN (18:13)
[2020-10-17] MEDS ORDERED: ALUMINUM/MAGNESIUM SUSP 30 ML UDC PO PRN (18:13)
[2020-10-17] MEDS ORDERED: BACLOFEN 10 MG TAB PO PRN (18:13)
[2020-10-17] MEDS ORDERED: ACETAMINOPHEN 325 MG TAB PO PRN (18:13)
[2020-10-17] MEDS ORDERED: NSS + 20MEQ KCL 20 MEQ/1,000 ML BAG IV SCH (19:00)
[2020-10-17] MEDS: ASPIRIN 81 MG ECTAB PO SCH (20:55)
[2020-10-17] MEDS ORDERED: GABAPENTIN 300 MG CAP PO SCH (21:00)
[2020-10-17] MEDS: ENOXAPARIN INJ 40 MG/0.4 ML SYR SQ SCH (21:01)
[2020-10-17] MEDS: dexAMETHasone 6 MG in SYRINGE 0 ML IV SCH (21:01)
[2020-10-17] MEDS: ROSUVASTATIN CALCIUM 20 MG TAB PO SCH (21:02)
[2020-10-17] MEDS: GABAPENTIN 600 MG TAB PO SCH (21:02)
[2020-10-17] MEDS: clonazePAM 0.5 MG TAB PO PRN (21:02)
[2020-10-17] MEDS: guaiFENesin 600 MG TABCR PO SCH (21:02)
[2020-10-17] MEDS: METOPROLOL SUCC 25MG EXT REL TAB PO SCH (21:02)
[2020-10-18] MEDS: ENOXAPARIN INJ 40 MG/0.4 ML SYR SQ SCH ×2 (06:01→17:53)
[2020-10-18 06:37] LABS: Hematocrit (blood only) 36.1 % (37-47); Hemoglobin 11.5 g/dL (12.0-16.0); Immature Granulocytes # (auto) 0.02 K/uL (0.00-0.02); Immature Granulocytes % (auto) 0.3 %; Lymphocytes # (auto) 0.41 K/uL (1.2-3.4); Mean Corpuscular Hemoglobin 31.6 pg (25-34); Mean Corpuscular Hgb Conc 31.9 g/dL (32-36); Mean Corpuscular Volume 99.2 fL (80-100); Mean Platelet Volume 9.7 fL (7.4-10.4); Monocytes # (auto) 0.22 K/uL (0.11-0.59); Monocytes % (auto) 3.2 %; Neutrophils # (auto) 6.22 K/uL (1.4-6.5); Neutrophils % (auto) 90.5 %; Platelet Count 240 K/uL (130-400); RDW Coefficient of Variation 14.7 % (11.5-14.5); RDW Standard Deviation 53.5 fL (36.4-46.3); Red Blood Count 3.64 M/uL (4.2-5.4); White Blood Count 6.87 K/uL (4.8-10.8)
[2020-10-18 07:04] LABS: Albumin Level 3.2 gm/dl (3.4-5.0); BUN Creatinine Ratio 21.8 (10-20); Calcium 8.2 mg/dl (8.5-10.1); Creatinine Clr Calc Pharmacy 47.3 ml/min; Est GFR (African American) 72.9 ml/min; Est GFR (Non-African American) 62.9 ml/min; Magnesium 2.5 mg/dl (1.8-2.4); Potassium 4.1 mmol/L (3.5-5.1)
[2020-10-18 07:06] LABS: Albumin Globulin Ratio 0.9 (0.9-2); Bilirubin,Total 0.4 mg/dl (0.2-1); Globulin 3.4 gm/dl (2.5-4.0); Total Protein 6.6 gm/dl (6.4-8.2)
[2020-10-18] MEDS: amLODIPine BESYLATE 5 MG TAB PO SCH (07:57)
[2020-10-18] MEDS: ASCORBIC ACID 500 MG TAB PO SCH (07:57)
[2020-10-18] MEDS: dexAMETHasone 6 MG in SYRINGE 0 ML IV SCH (07:58)
[2020-10-18] MEDS: METOPROLOL SUCC 25MG EXT REL TAB PO SCH ×2 (07:58→20:45)
[2020-10-18] MEDS: PANTOprazole 40 MG TAB PO SCH (07:59)
[2020-10-18] MEDS: guaiFENesin 600 MG TABCR PO SCH ×2 (07:59→20:44)
[2020-10-18] MEDS: LOSARTAN POTASSIUM 50 MG TAB PO SCH (07:59)
[2020-10-18] MEDS: ISOSORBIDE MONO EXTENDED REL 30 MG TABCR PO SCH (07:59)
[2020-10-18] MEDS: GABAPENTIN 300 MG CAP PO SCH ×2 (07:59→12:16)
--- NOTE | 2020-10-18 16:22 | Hospitalist Progress Note ---
Date of Service October 18, 2020 Assessment & Plan (1) Fall: (2) Weakness: (3) Lumbar compression fracture: (4) SARS-CoV-2 positive: (5) CAD (coronary artery disease): (6) Hypertension: (7) Dyslipidemia: (8) Lumbar spinal stenosis: (9) Rheumatoid arthritis: Plan: This is a 85-year-old female who has significant past medical history for CAD, HTN, HLD, chronic rheumatoid arthritis on immunosuppressive therapy, AAA, history of nonsustained V. tach on event monitor, CKD stage III, lumbar spinal stenosis status post laminectomy, peripheral nerve stimulator secondary to fecal incontinence, polyneuropathy who presents ED today secondary to weakness and inability to ambulate. Admit to PCU for close monitoring Fall/Weakness/L3 compression fx known LSS s/p lumbar surgery in past weakness 2/2 to sars-cov2 vs lumbar spine pathology abnormal lumbar spine CT with lucency around Interpedicular screw on right at L3 and L4 Compression fx noted at L3, unknown if old or new, pt c/o chronic back pain but is unchanged Discussed with Dr. Dukes who compared the scan from prior and does not think anything acutely changed since then. We will get PT and OT evaluation as recommended by orthospine . She has been feeling much better and her weakness has improved Sars-COV 2 + with respiratory sx known exposure 2 weeks prior with partially vaccinated daughter Patient is fully vaccinated Cough for the past 3 to 4 days, weakness, chills and ill feeling Placed on dexamethasone 6 mg IV daily, prn albuterol, incentive spirometry muccinex for cough Monitor oxygen saturations closely Current chest x-ray negative for acute abnormality ESR and CRP elevated Remains stable and does not require any oxygen at rest Her cough is better and denies any shortness of breath CAD/HTN/HLD follows [facility] continue asa, coreg, imdur, crestor, losartan, metoprolol on amlodipine and hctz for HTN - hold HCTZ due to mild renal insuff pt has LINQ monitor in place due to prior hx of syncope and NSVT No acute cardiac symptoms Acute on Chronic Renal Insufficiency stage 3 baseline cr 0.8-0.9 bun/cr 18 and 1.14 gentle IVF x 1 L Creatinine remains stable Chronic Rheumatoid Arthritis hold oral prednisone and xeljanz resume when able Denies any acute arthritis Chronic polyneuropathy continue gabapentin DVT ppx: Lovenox 40mg SQ Q12 (covid protocol) FULL CODE PCP: Kathya Stein Admission and Anticipated Discharge Date Admission Date: October 17, 2020 Subjective 10/18/2020 The patient was seen and examined in telemetry unit and in the Covid room She has been doing much better today Her weakness is better and he does not have any respiratory symptoms She has not been requiring any oxygen to maintain saturation Review of Systems Review of Systems: All systems reviewed and are unremarkable except as noted below Musculoskeletal: Minimal back pain without any radiation. Generalized weakness has been improving Physical Exam Physical Exam: Sitting on a chair without any acute distress Constitutional: well developed, well nourished and + obese; not ill appearing Eyes: PERRL, conjunctivae normal, anicteric sclerae ENMT: external ear and nose normal, oropharynx normal Neck: trachea midline, no thyromegaly Respiratory: no respiratory distress and no cough Auscultation: lungs clear to auscultation bilaterally Cardiovascular: Rate/Rhythm: regular rate and regular rhythm; not tachycardic Heart Sounds: normal S1 and normal S2; no murmur Gastrointestinal (Abdomen): normal bowel sounds, soft, nontender, no hepatosplenomegaly Musculoskeletal: Minimal tenderness lower lumbar spine Neurologic: Alert, awake and oriented x3. No focal sensory and motor deficit appreciated Results & Data Results & Data ([facility]) Vital Signs (Past 12 Hours) Vital Signs Temp Pulse Pulse Resp BP Pulse Ox 10/18/20 15:05 36.6 C 65 19 93/48 L 95 10/18/20 11:59 36.5 C 60 19 98/53 L 94 10/18/20 08:00 36.6 C 62 67 18 155/78 H 97 10/18/20 05:40 36.5 C 144/77 H Laboratory Results Short CBC 10/18/20 Range/Units 06:02 WBC 6.87 (4.8-10.8) K/uL Hgb 11.5 L (12.0-16.0) g/dL Hct 36.1 L (37-47) % Plt Count 240 (130-400) K/uL BMP 10/18/20 06:02 Sodium 136 Potassium 4.1 Chloride 109 H Carbon Dioxide 24 BUN 19 H Creatinine 0.85 Glucose 141 H Calcium 8.2 L Liver Function 08/10/21 Range/Units 06:02 Total Bilirubin 0.4 (0.2-1) mg/dl AST 25 (15-37) U/L ALT 17 (12-78) U/L Alkaline Phosphatase 46 (45-117) U/L Albumin 3.2 L (3.4-5.0) gm/dl Medications Administered Current Inpatient Medications Acetaminophen (Acetaminophen 325 Mg Tab) 650 mg PO Q4H PRN PRN Reason: Pain or Fever Stop: 11/16/20 18:12 Al Hydrox/Mg Hydrox/Simethicone (Aluminum/Magnesium Susp 30 Ml Udc) 15 ml PO Q4H PRN PRN Reason: Dyspepsia Stop: 11/16/20 18:12 Albuterol (Albuterol Hfa 8 Gm Inhaler) 2 puffs INH Q4H PRN PRN Reason: sob Stop: 11/16/20 17:44 Amlodipine Besylate (Amlodipine Besylate 5 Mg Tab) 2.5 mg PO DAILY PAULA Stop: 11/17/20 08:59 Last Admin: 10/18/20 07:57 Dose: 2.5 mg Documented by: Ascorbic Acid (Ascorbic Acid 500 Mg Tab) 500 mg PO DAILY PAULA Stop: 11/17/20 08:59 Last Admin: 10/18/20 07:57 Dose: 500 mg Documented by: Aspirin (Aspirin 81 Mg Ectab) 81 mg PO MoWeFr@0900 [facility] Stop: 11/16/20 18:12 Last Admin: 10/17/20 20:55 Dose: Not Given Documented by: Baclofen (Baclofen 10 Mg Tab) 10 mg PO TID PRN PRN Reason: pain/spasm Stop: 11/16/20 18:12 Clonazepam (Clonazepam 0.5 Mg Tab) 0.5 mg PO HS PRN PRN Reason: Anxiety Stop: 11/16/20 18:12 Last Admin: 10/17/20 21:02 Dose: 0.5 mg Documented by: Enoxaparin Sodium (Enoxaparin Inj 40 Mg/0.4 Ml Syr) 40 mg SQ Q12H PAULA Stop: 11/16/20 18:12 Last Admin: 10/18/20 06:01 Dose: 40 mg Documented by: Gabapentin (Gabapentin 600 Mg Tab) 600 mg PO HS PAULA Stop: 11/16/20 20:59 Last Admin: 10/17/20 21:02 Dose: 600 mg Documented by: Gabapentin (Gabapentin 300 Mg Cap) 300 mg PO BID@0900,1200 [facility] Stop: 11/17/20 08:59 Last Admin: 10/18/20 12:16 Dose: 300 mg Documented by: Guaifenesin (Guaifenesin 600 Mg Tabcr) 600 mg PO Q12 PAULA Stop: 11/16/20 20:59 Last Admin: 10/18/20 07:59 Dose: 600 mg Documented by: Dexamethasone 6 mg/ Syringe 1.5 mls @ 1 mls/min IV DAILY PAULA Stop: 10/27/20 18:12 Last Admin: 10/18/20 07:58 Dose: 1 mls/min Documented by: Isosorbide Mononitrate (Isosorbide [place] Extended Rel 30 Mg Tabcr) 30 mg PO DAILY [facility] Stop: 11/17/20 08:59 Last Admin: 10/18/20 07:59 Dose: 30 mg Documented by: Losartan Potassium (Losartan Potassium 50 Mg Tab) 50 mg PO DAILY [facility] Stop: 11/17/20 08:59 Last Admin: 10/18/20 07:59 Dose: 50 mg Documented by: Magnesium Hydroxide (Magnesium Hydroxide Susp 30 Ml Udc) 30 ml PO Q12H PRN PRN Reason: Constipation Stop: 11/16/20 18:12 Melatonin (Melatonin 3 Mg Tab) 3 mg PO HS PRN PRN Reason: Sleep Stop: 11/16/20 18:12 Last Admin: 10/17/20 21:02 Dose: 3 mg Documented by: Metoprolol Succinate (Metoprolol Succ 25mg Ext Rel Tab) 37.5 mg PO QAM [facility] Stop: 11/17/20 08:59 Last Admin: 10/18/20 07:58 Dose: 37.5 mg Documented by: Metoprolol Succinate (Metoprolol Succ 25mg Ext Rel Tab) 25 mg PO HS [facility] Stop: 11/16/20 20:59 Last Admin: 10/17/20 21:02 Dose: 25 mg Documented by: Ondansetron HCl (Ondansetron Inj 2 Mg/Ml 2 Ml Vial) 4 mg IV Q6H PRN PRN Reason: Nausea Stop: 11/16/20 18:12 Pantoprazole Sodium (Pantoprazole 40 Mg Tab) 40 mg PO QAM [facility] Stop: 11/17/20 08:59 Last Admin: 10/18/20 07:59 Dose: 40 mg Documented by: Polyethylene Glycol (Polyethylene (Miralax) 17 Gm Pack) 17 gm PO DAILY PRN PRN Reason: Constipation Stop: 11/16/20 18:12 Rosuvastatin Calcium (Rosuvastatin Calcium 20 Mg Tab) 40 mg PO QPM PAULA Stop: 11/16/20 20:59 Last Admin: 10/17/20 21:02 Dose: 40 mg Documented by: (1) Lumbar compression fracture Lumbar vertebra fracture level: L1
[2020-10-18] MEDS: ROSUVASTATIN CALCIUM 20 MG TAB PO SCH (20:41)
[2020-10-18] MEDS: clonazePAM 0.5 MG TAB PO PRN (20:43)
[2020-10-18] MEDS: GABAPENTIN 600 MG TAB PO SCH (20:44)
[2020-10-19 00:24] LABS: Appearance Urine Clear (Clear); Bacteria Urine Automated Negative (Negative); Bilirubin Urine Negative (Negative); Blood Urine 1+ (Negative); Cast Urine Automated 0 /lpf (0-5); Color Urine Yellow; Glucose Urine UA Negative (Negative); Ketones Urine Negative (Negative); Leukocyte Esterase Urine Negative (Negative); Nitrite Urine Negative (Negative); Protein Urine 1+ (Negative); Urobilinogen Urine Negative (Negative)
[2020-10-19] MEDS: ENOXAPARIN INJ 40 MG/0.4 ML SYR SQ SCH (06:04)
[2020-10-19] MEDS: amLODIPine BESYLATE 5 MG TAB PO SCH (08:15)
[2020-10-19] MEDS: dexAMETHasone 6 MG in SYRINGE 0 ML IV SCH (08:15)
[2020-10-19] MEDS: guaiFENesin 600 MG TABCR PO SCH (08:16)
[2020-10-19] MEDS: LOSARTAN POTASSIUM 50 MG TAB PO SCH (08:16)
[2020-10-19] MEDS: ASPIRIN 81 MG ECTAB PO SCH (08:16)
[2020-10-19] MEDS: ISOSORBIDE MONO EXTENDED REL 30 MG TABCR PO SCH (08:16)
[2020-10-19] MEDS: ASCORBIC ACID 500 MG TAB PO SCH (08:16)
[2020-10-19] MEDS: GABAPENTIN 300 MG CAP PO SCH ×2 (08:16→11:59)
[2020-10-19] MEDS: PANTOprazole 40 MG TAB PO SCH (08:16)
[2020-10-19] MEDS: METOPROLOL SUCC 25MG EXT REL TAB PO SCH (08:17)
--- NOTE | 2020-10-19 12:20 | Consultation ---
Date of Consultation October 19, 2020 Assessment & Plan (1) Lumbar compression fracture: This compression fracture appears to be chronic. She has no new pain in this location. No further measures needed. Patient is at her baseline chronic pain which is manageable with [id number] medications. Bilateral lower extremity weakness that has subsequently resolved over the past 48 hours. There are no acute lumbar issues. Would recommend physical therapy possible occupational therapy. Ambulate ad rosa. No true weight lifting restrictions. No further spine intervention warranted. Will sign off. If any further questions please do not hesitate to contact us. Supervising Physician Co-Signing Physician Notes Dr. Amilcar Dukes History of Present Illness Reason for Consultation: Chronic back pain and bilateral lower extremity weakness Attending Physician: Lizeth Mcdonald MD History of Present Illness This is a pleasant 85-year-old female we are asked to see in consultation regarding chronic lower back pain and bilateral lower extremity weakness. 2 days ago she was at home with her felt her legs get out from underneath her. She was unable to get up on her own. They called their son who subsequently called the ambulance and was taken to the emergency room. Upon examination today she states she has her baseline chronic pain. Her bilateral lower extremity weakness has resolved. At home she alternates between a cane and a walker. She takes [id number] medication for her chronic pain. She has had two prior surgeries one in the . The second was by Dr.'s Mackenzie 5+ years ago. Denies bowel bladder dysfunction or perineum numbness. Allergies Allergy/AdvReac Type Severity Reaction Status Date / Time morphine Allergy Severe SHORTNESS Verified 10/17/20 14:34 OF BREATH shrimp Allergy Severe GI SYMPTOMS Verified 10/17/20 14:34 Sulfa (Sulfonamide Allergy Intermediate HIVES Verified 10/17/20 14:34 Antibiotics) benzonatate Allergy Unknown GI UPSET Verified 10/17/20 14:34 codeine Allergy Unknown NAUSEA Verified 10/17/20 14:34 lisinopril Allergy Unknown GI SYMPTOMS Verified 10/17/20 14:34 adhesive AdvReac Intermediate TAPE - RASH Verified 10/17/20 14:34 tramadol AdvReac Intermediate Nausea Verified 10/17/20 14:34 Home Medications Medication Instructions Recorded Confirmed Type clonazepam 0.5 mg tablet 0.5 mg PO HS PRN tab 11/14/17 10/17/20 History hydrochlorothiazide 25 mg tablet 25 mg PO MOWEFR tab 11/14/17 10/17/20 History rosuvastatin 40 mg tablet (Crestor) 40 mg PO QPM 11/14/17 10/17/20 History aspirin 81 mg tablet,delayed 81 mg PO MOWEFR tab 02/06/18 10/17/20 History release (Adult Low Dose Aspirin) gabapentin 300 mg capsule 300 mg PO BID 12/25/18 10/17/20 History gabapentin 300 mg capsule 600 mg PO HS 12/25/18 10/17/20 History metoprolol succinate 25 mg 37.5 mg PO QAM 12/25/18 10/17/20 History tablet,extended release 24 hr (Toprol XL) simethicone 125 mg chewable tablet 125 mg PO BID PRN 12/25/18 10/17/20 History tofacitinib 11 mg tablet,extended 11 mg PO DAILY 12/25/18 10/17/20 History release 24 hr (Xeljanz XR) baclofen 10 mg tablet 10 mg PO TID PRN tab 07/31/19 10/17/20 History amlodipine 2.5 mg tablet 2.5 mg PO DAILY 06/10/20 10/17/20 History losartan 50 mg tablet (Cozaar) 50 mg PO DAILY tab 06/21/20 10/17/20 History albuterol sulfate 90 mcg/actuation 1 inh INHALATION Q4H PRN g 08/22/20 10/17/20 History aerosol inhaler ascorbate calcium (vitamin C) 500 500 mg PO DAILY 08/22/20 10/17/20 History mg tablet melatonin 5 mg capsule 5 mg PO HS PRN 08/22/20 10/17/20 History omeprazole 20 mg capsule,delayed 40 mg PO QAM cap 08/22/20 10/17/20 History release prednisone 5 mg tablet 7.5 mg PO DAILY tab 08/22/20 10/17/20 History isosorbide mononitrate 30 mg 30 mg PO DAILY 10/17/20 10/17/20 History tablet,extended release 24 hr metoprolol succinate 25 mg 25 mg PO HS 10/17/20 10/17/20 History tablet,extended release 24 hr Patient History Medical History Acquired right foot drop Arachnoiditis CAD (coronary artery disease) Cervical radiculopathy Degenerative joint disease of knee Dyslipidemia Facet syndrome, lumbar Greater trochanteric bursitis Hypertension Left knee pain Lumbago Lumbar compression fracture L1 acute on chronic MRI 03/2019 Lumbar postlaminectomy syndrome Lumbar radiculitis Lumbar spinal stenosis Myocardial infarct, old Osteoarthritis Osteoporosis Peripheral neuropathy Pes anserinus tendonitis of right lower extremity Postoperative seroma L2-4 Rheumatoid arthritis Rheumatoid arthritis of shoulder Right knee pain Status post TKA taking shots due to bursitis Right knee pain Surgical History History of adenoidectomy History of angioplasty History of breast biopsy History of hysterectomy History of loop recorder follows with Dr Bergeron History of lumbosacral spine surgery flexible rainer and does zoltan History of PTCA History of tonsillectomy History of total shoulder replacement Right S/P total knee arthroplasty Right Family History Father Myocardial infarction Brother Myocardial infarction Other Family history non-contributory Denies family history of Ovarian cancer Prostate cancer Breast cancer Colorectal cancer Social History Smoking Status: Never smoker Second Hand Exposure: No; Hx Alcohol Use: Yes Alcohol type: wine Hx Substance Use: No Preferred Language: Nicaraguan Communication Ability: Effective Visual Impairment: No Limitations Hearing Ability: Normal Lining Machine Tender Required: No Beliefs That Will Affect Care: None marital status: Current Living Situation: Spouse current occupational status: retired Feels Safe at Home: Yes Assistive Devices: Walker Review of Systems Review of Systems: See HPI Physical Exam Physical Exam: She sitting in a chair in no acute distress. Very comfortable. Alert and oriented x3. Strength is five/ five bilateral EHL, dorsiflexion, plantarflexion, quadriceps, hamstrings, hip flexors, hip abductor's and hip adductor's. She has well-healed midline lumbar incisions. She is nontender to palpation and percussion to the thoracolumbar spine. Nontender over the bilateral sciatic notch regions bilaterally. Negative tension signs bilaterally. Negative logrolling bilaterally. Constitutional: WD/WN, vitals as above Eyes: PERRL, conjunctivae normal, anicteric sclerae Neck: trachea midline, no thyromegaly Respiratory: normal respiratory effort, lungs clear to auscultation Cardiovascular: Extremities: normal capillary refill Gastrointestinal (Abdomen): Inspection/Auscultation: abdomen normal to inspection Musculoskeletal: Extremities: extremities normal to inspection and strength 5/5 throughout Skin: no rashes, warm and dry Neurologic: normal touch/pain/proprioception and moves all extremities Psychiatric: A+Ox3, euthymic affect Results & Data ([facility]) Vital Signs (Past 12 Hours) Vital Signs Temp Pulse Pulse Resp BP Pulse Ox 10/19/20 11:25 36.4 C L 58 L 18 112/52 L 94 10/19/20 08:00 64 10/19/20 07:40 36.4 C L 60 18 122/62 94 10/19/20 06:13 36.6 C 65 18 129/63 95 10/19/20 02:36 57 L Diagnostic Findings [facility], [phone] CT Scan Report Patient: ESTELLE CARRIZALES Date: 10/17/20MR#: [id number]: [facility][id number]: [facility]: [facility] Zip: [place], [place] [address]Ude: 85Location: EDSex: FRoom/Bed:Att Phy:Diagnosis: WEAKNESSPri Phy: Fiona Stein, DOService Date: 10/17/20Fa Phy:Interpreting Phy: [facility]: Ordering Phy: Murtaza Collins MD cc: ~ CT SCAN OF THE LUMBAR SPINE WITHOUT IV CONTRAST CLINICAL HISTORY: Bilateral lower extremity weakness. COMPARISON STUDY: MRI of the lumbar spine dated 04/10/2019. TECHNIQUE: CT scan of the lumbar spine is performed from the lower thoracic spine to the upper lumbar spine. Images are reviewed in the axial, sagittal, and coronal planes. IV contrast was not administered for this examination. A dose lowering technique was utilized adhering to the principles of ALARA. The examination is compromised by streak artifact from extensive metallic spinal hardware. CT DOSE: 609.07 mGycm FINDINGS: The skeletal structures are osteopenic. There is a severe chronic compression deformity of L1 with minimally retropulsed fragments. A moderate chr onic compression of L2 and a mild compression deformity of L4 are also unchanged. There is a moderate compression deformity of L3. This is age- indeterminant, but new from 04/10/2019. No definite acute fracture line is identified. The transverse processes appear intact. Vertebral body height is maintained at L5. There is straightening of the lumbar lordosis. Mild dextrocurvature is centered at L2. There is postoperative change from posterior spinal fusion seen from L2-L4. Interpedicular screws are present at all levels. Lucency around the right interpedicular screw at L3 and both interpedicular screws at L4 suggests loosening. There is severe disc space narrowing at L4-L5 and L5-S1. Mild disc space narrowing is seen at the remaining lumbar levels. Posterior disc osteophyte complexes are seen at all lumbar levels and likely contribute to multilevel acquired compromise of the central canal. Advanced facet arthropathy is seen in the lower lumbar region. There is no evidence of spondylolysis. No lytic or blastic lesion is seen. A sacral stimulator device is present within the right gluteal soft tissues. The visualized sacrum and bony pelvis appear intact. There are healed right posterior rib fractures. There is fatty atrophy of the paraspinous musculature. A 3 cm chronic postoperative seroma is again suggested within the posterior aspect of the thecal sac at L3- L4. This was better seen on the 04/10/2019 MRI. There is advanced atherosclerotic calcification of the abdominal aorta. No retroperitoneal lymphadenopathy is identified. IMPRESSION: 1. There is a moderate compression deformity of L3. This is age-indeterminant, but new from 04/10/2019. There is no significant retropulsion of fragments at this level. Correlate for point tenderness. 2. Additional chronic compression deformities as above. 3. Spondylotic and postoperative change as above. Findings suggest lucency around the right interpedicular screw at L3 and the interpedicular screw at L4. 4. Additional findings as above. ACT 112: Negative or not required by law. Dictated: 10/17/2020 3:21 PM Transcribed: 10/17/2020 3:53 PM Verena [id number] Devin Electronically signed by: Preston Hammonds M.D. 10/17/2020 4:04 PM Dictated: 10/17/20 1521 (1) Lumbar compression fracture Lumbar vertebra fracture level: L1
--- NOTE | 2020-10-19 15:54 | Hospitalist Progress Note ---
Date of Service October 19, 2020 Assessment & Plan (1) Fall: (2) Weakness: (3) Lumbar compression fracture: (4) SARS-CoV-2 positive: (5) CAD (coronary artery disease): (6) Hypertension: (7) Dyslipidemia: (8) Lumbar spinal stenosis: (9) Rheumatoid arthritis: Plan: This is a 85-year-old female who has significant past medical history for CAD, HTN, HLD, chronic rheumatoid arthritis on immunosuppressive therapy, AAA, history of nonsustained V. tach on event monitor, CKD stage III, lumbar spinal stenosis status post laminectomy, peripheral nerve stimulator secondary to fecal incontinence, polyneuropathy who presents ED today secondary to weakness and inability to ambulate. Admit to PCU for close monitoring Fall/Weakness/L3 compression fx known LSS s/p lumbar surgery in past weakness 2/2 to sars-cov2 vs lumbar spine pathology abnormal lumbar spine CT with lucency around Interpedicular screw on right at L3 and L4 Compression fx noted at L3, unknown if old or new, pt c/o chronic back pain but is unchanged Discussed with Dr. Dukes who compared the scan from prior and does not think anything acutely changed since then. We will get PT and OT evaluation as recommended by orthospine . She has been feeling much better and her weakness has improved Appreciate Ortho input and recommendation We will have home PT as an outpatient Sars-COV 2 + with respiratory sx known exposure 2 weeks prior with partially vaccinated daughter Patient is fully vaccinated Cough for the past 3 to 4 days, weakness, chills and ill feeling Placed on dexamethasone 6 mg IV daily, prn albuterol, incentive spirometry muccinex for cough Monitor oxygen saturations closely Current chest x-ray negative for acute abnormality ESR and CRP elevated Remains stable and does not require any oxygen at rest Her cough is better and denies any shortness of breath She will be discharged home today but will require home quarantine for 8 more days CAD/HTN/HLD follows [facility] Cardiology continue asa, coreg, imdur, crestor, losartan, metoprolol on amlodipine and hctz for HTN - hold HCTZ due to mild renal insuff pt has LINQ monitor in place due to prior hx of syncope and NSVT No acute cardiac symptoms Acute on Chronic Renal Insufficiency stage 3 baseline cr 0.8-0.9 bun/cr 18 and 1.14 gentle IVF x 1 L Creatinine remains stable Chronic Rheumatoid Arthritis hold oral prednisone and xeljanz resume when able Denies any acute arthritis Chronic polyneuropathy continue gabapentin DVT ppx: Lovenox 40mg SQ Q12 (covid protocol) FULL CODE PCP: Kathya Stein Will be discharging home this afternoon with home physical therapy Admission and Anticipated Discharge Date Admission Date: October 17, 2020 Subjective 10/18/2020 The patient was seen and examined in telemetry unit and in the Covid room She has been doing much better today Her weakness is better and he does not have any respiratory symptoms She has not been requiring any oxygen to maintain saturation 10/19/2020 The patient was seen and examined in telemetry unit and in the Covid room She has been feeling much better and has not been requiring oxygen since admission Her generalized weakness and back pain have improved Has had physical therapy and recommended home with physical therapy Review of Systems Review of Systems: All systems reviewed and are unremarkable except as noted below Musculoskeletal: Minimal back pain without any radiation. Generalized weakness has been improving Physical Exam Physical Exam: Sitting on a chair without any acute distress Constitutional: well developed, well nourished and + obese; not ill appearing Eyes: PERRL, conjunctivae normal, anicteric sclerae ENMT: external ear and nose normal, oropharynx normal Neck: trachea midline, no thyromegaly Respiratory: no respiratory distress and no cough Auscultation: lungs clear to auscultation bilaterally Cardiovascular: Rate/Rhythm: regular rate and regular rhythm; not tachycardic Heart Sounds: normal S1 and normal S2; no murmur Gastrointestinal (Abdomen): normal bowel sounds, soft, nontender, no hepatosplenomegaly Musculoskeletal: No acute arthritis in any joint. Has neuropathic pain in the right leg Neurologic: Alert, awake and oriented x3. No focal sensory and motor deficit appreciated except neuropathy in the right leg. Lymphatic: no cervical or axillary lymphadenopathy Results & Data Results & Data ([facility]) Vital Signs (Past 12 Hours) Vital Signs Temp Pulse Pulse Resp BP Pulse Ox 10/19/20 11:25 36.4 C L 58 L 18 112/52 L 94 10/19/20 08:00 64 10/19/20 07:40 36.4 C L 60 18 122/62 94 10/19/20 06:13 36.6 C 65 18 129/63 95 Laboratory Results Urine 10/19/20 Range/Units 00:00 Urine Color Yellow Urine Appearance Clear (Clear) Urine pH 6.0 (4.5-7.5) Ur Specific [place] 1.010 (1.000-1.030) Urine Protein 1+ H (Negative) Urine Glucose (UA) Negative (Negative) Medications Administered Current Inpatient Medications Acetaminophen (Acetaminophen 325 Mg Tab) 650 mg PO Q4H PRN PRN Reason: Pain or Fever Stop: 11/16/20 18:12 Last Admin: 10/19/20 06:11 Dose: 650 mg Documented by: Al Hydrox/Mg Hydrox/Simethicone (Aluminum/Magnesium Susp 30 Ml Udc) 15 ml PO Q4H PRN PRN Reason: Dyspepsia Stop: 11/16/20 18:12 Albuterol (Albuterol Hfa 8 Gm Inhaler) 2 puffs INH Q4H PRN PRN Reason: sob Stop: 11/16/20 17:44 Amlodipine Besylate (Amlodipine Besylate 5 Mg Tab) 2.5 mg PO DAILY [facility] Stop: 11/17/20 08:59 Last Admin: 10/19/20 08:15 Dose: 2.5 mg Documented by: Ascorbic Acid (Ascorbic Acid 500 Mg Tab) 500 mg PO DAILY [facility] Stop: 11/17/20 08:59 Last Admin: 10/19/20 08:16 Dose: 500 mg Documented by: Aspirin (Aspirin 81 Mg Ectab) 81 mg PO MoWeFr@0900 [facility] Stop: 11/16/20 18:12 Last Admin: 10/19/20 08:16 Dose: 81 mg Documented by: Baclofen (Baclofen 10 Mg Tab) 10 mg PO TID PRN PRN Reason: pain/spasm Stop: 11/16/20 18:12 Clonazepam (Clonazepam 0.5 Mg Tab) 0.5 mg PO HS PRN PRN Reason: Anxiety Stop: 11/16/20 18:12 Last Admin: 10/18/20 20:43 Dose: 0.5 mg Documented by: Enoxaparin Sodium (Enoxaparin Inj 40 Mg/0.4 Ml Syr) 40 mg SQ Q12H [facility] Stop: 11/16/20 18:12 Last Admin: 10/19/20 06:04 Dose: 40 mg Documented by: Gabapentin (Gabapentin 600 Mg Tab) 600 mg PO HS [facility] Stop: 11/16/20 20:59 Last Admin: 10/18/20 20:44 Dose: 600 mg Documented by: Gabapentin (Gabapentin 300 Mg Cap) 300 mg PO BID@0900,1200 [facility] Stop: 11/17/20 08:59 Last Admin: 10/19/20 11:59 Dose: 300 mg Documented by: Guaifenesin (Guaifenesin 600 Mg Tabcr) 600 mg PO Q12 [facility] Stop: 11/16/20 20:59 Last Admin: 10/19/20 08:16 Dose: 600 mg Documented by: Dexamethasone 6 mg/ Syringe 1.5 mls @ 1 mls/min IV DAILY [facility] Stop: 10/27/20 18:12 Last Admin: 10/19/20 08:15 Dose: 1 mls/min Documented by: Isosorbide Mononitrate (Isosorbide Edwards Extended Rel 30 Mg Tabcr) 30 mg PO DAILY [facility] Stop: 11/17/20 08:59 Last Admin: 10/19/20 08:16 Dose: 30 mg Documented by: Losartan Potassium (Losartan Potassium 50 Mg Tab) 50 mg PO DAILY [facility] Stop: 11/17/20 08:59 Last Admin: 10/19/20 08:16 Dose: 50 mg Documented by: Magnesium Hydroxide (Magnesium Hydroxide Susp 30 Ml Udc) 30 ml PO Q12H PRN PRN Reason: Constipation Stop: 11/16/20 18:12 Melatonin (Melatonin 3 Mg Tab) 3 mg PO HS PRN PRN Reason: Sleep Stop: 11/16/20 18:12 Last Admin: 10/17/20 21:02 Dose: 3 mg Documented by: Metoprolol Succinate (Metoprolol Succ 25mg Ext Rel Tab) 37.5 mg PO QAM [facility] Stop: 11/17/20 08:59 Last Admin: 10/19/20 08:17 Dose: 37.5 mg Documented by: Metoprolol Succinate (Metoprolol Succ 25mg Ext Rel Tab) 25 mg PO HS [facility] Stop: 11/16/20 20:59 Last Admin: 10/18/20 20:45 Dose: 25 mg Documented by: Ondansetron HCl (Ondansetron Inj 2 Mg/Ml 2 Ml Vial) 4 mg IV Q6H PRN PRN Reason: Nausea Stop: 11/16/20 18:12 Pantoprazole Sodium (Pantoprazole 40 Mg Tab) 40 mg PO QAM [facility] Stop: 11/17/20 08:59 Last Admin: 10/19/20 08:16 Dose: 40 mg Documented by: Polyethylene Glycol (Polyethylene (Miralax) 17 Gm Pack) 17 gm PO DAILY PRN PRN Reason: Constipation Stop: 11/16/20 18:12 Rosuvastatin Calcium (Rosuvastatin Calcium 20 Mg Tab) 40 mg PO QPM [facility] Stop: 11/16/20 20:59 Last Admin: 10/18/20 20:41 Dose: 40 mg Documented by: (1) Lumbar compression fracture Lumbar vertebra fracture level: L1
[2020-10-19 16:48] VITALS: BP 103/55; PULSE 50; TEMP 98.2; O2SAT 97
--- NOTE | 2020-10-20 08:07 | Discharge Summary ---
Date of Service October 20, 2020 Admission HPI Per Admitting Provider This is a 85-year-old female who has significant past medical history for CAD, HTN, HLD, chronic rheumatoid arthritis on immunosuppressive therapy, AAA, history of nonsustained V. tach on event monitor, CKD stage III, lumbar spinal stenosis status post laminectomy, peripheral nerve stimulator secondary to fecal incontinence, polyneuropathy who presents ED today secondary to weakness and inability to ambulate. Patient admits to not feeling well yesterday. Today when she went to bent over to pick something up beside the bed she generally felt weak and lowered herself to the ground. She was unable to get up on her own and was unable to get her up therefore EMS was summoned. She was in her normal state of health approximately 2 to 3 days ago. She developed a wet cough over the past 3 to 4 days. She does of a known Covid exposure with her daughter approximately 2 weeks ago who tested positive. Her daughter is partially vaccinated. Patient is fully vaccinated. She also complains of intermittent chills, but denies documented fever, sweats, lightheadedness, dizziness, syncope, chest pain, shortness of breath, nausea, vomiting, abdominal pain, dysuria, increased urgency or frequency with urination or diarrhea. She does have chronic lumbar pain but is at baseline. She also complains of dyspnea on exertion especially when walking up steps, but this is unchanged. She denies any pain radiating down her lower extremities but does complain of profound weakness. She denies any recent trauma or fall. In ED patient made hemodynamically stable and is not requiring any oxygen. She did test positive for COVID-19. She mild elevation ESR 34 and CRP 2.89. Mild ovation renal function with BUN 18 creatinine 1.14. Her chest x-ray is negative for acute abnormality. Lumbar spine CT notable for moderate compression deformity of L3, age-indeterminate but new from 04/10/2019. Additional chronic pressure deformities as above. Also spondylitic and postoperative changes findings suggestive of lucency around the right interpedicular screw at L3 and interpedicular screw at L4. Admission Exam Per Admitting Provider Physical Exam: Constitutional: WD/WN, appears well, nontoxic vitals as above, NAD, sitting up in bed, pleasant, conversing easily Head: Normocephalic, Atraumatic Eyes: PERRL, conjunctivae normal, anicteric sclerae ENMT: external ear and nose normal, oropharynx normal Neck: trachea midline, no thyromegaly normal visual inspection Respiratory: normal respiratory effort, lungs clear to auscultation, no wheeze, rales, rhonchi. Normal insp/exp effort, no accessory muscle use Cardiovascular: RRR, no murmur, no edema Vessels: no JVD or carotid bruit Chest: normal inspection of chest Abdomen: normal bowel sounds, soft, nontender, no hepatosplenomegaly Musculoskeletal: no cyanosis or clubbing, poor active range of motion to bilateral lower extremities, strength to bilateral extremities 4/5, good plantar flexion, diminished dorsiflexion, good active range of motion to upper extremities and strength 5/5, Skin: ecchymosis to b/l pre tibial surface, pt admits to being chronic, no rashes, warm and dry normal turgor Neurologic: PERRL, EOMI, accommodation nl, no face palsy, no dysarthria CN's II-XI intact bilaterally and moves all extremities Psychiatric: A+Ox3, euthymic affect Lymphatic: no cervical or axillary lymphadenopathy : deferred Principal Diagnosis Generalized weakness, fall without significant injury, chronic back pain, post vaccination COVID-19 infection, stable CAD, chronic rheumatoid arthritis, chronic polyneuropathy Discharge Exam Constitutional well developed, well nourished and + obese; not ill appearing Eyes PERRL, conjunctivae normal, anicteric sclerae ENMT external ear and nose normal, oropharynx normal Neck trachea midline, no thyromegaly Respiratory no respiratory distress and no cough Auscultation: lungs clear to auscultation bilaterally Cardiovascular Rate/Rhythm: regular rate and regular rhythm; not tachycardic Heart Sounds: normal S1 and normal S2; no murmur Gastrointestinal (Abdomen) normal bowel sounds, soft, nontender, no hepatosplenomegaly Lymphatic no cervical or axillary lymphadenopathy Discharge Data Allergies Allergy/AdvReac Type Severity Reaction Status Date / Time morphine Allergy Severe SHORTNESS Verified 10/17/20 14:34 OF BREATH shrimp Allergy Severe GI SYMPTOMS Verified 10/17/20 14:34 Sulfa (Sulfonamide Allergy Intermediate HIVES Verified 10/17/20 14:34 Antibiotics) benzonatate Allergy Unknown GI UPSET Verified 10/17/20 14:34 codeine Allergy Unknown NAUSEA Verified 10/17/20 14:34 lisinopril Allergy Unknown GI SYMPTOMS Verified 10/17/20 14:34 adhesive AdvReac Intermediate TAPE - RASH Verified 10/17/20 14:34 tramadol AdvReac Intermediate Nausea Verified 10/17/20 14:34 Consultations 10/17/20 17:32 Consult Orthopedic Surgery Routine Ordered Studies 10/17/20 14:26 CT head/brain wo con Stat CT lumbar spine wo con Stat Hospital Course (1) Fall: (2) Weakness: (3) Lumbar compression fracture: (4) SARS-CoV-2 positive: (5) CAD (coronary artery disease): (6) Hypertension: (7) Dyslipidemia: (8) Lumbar spinal stenosis: (9) Rheumatoid arthritis: This is a 85-year-old female who has significant past medical history for CAD, HTN, HLD, chronic rheumatoid arthritis on immunosuppressive therapy, AAA, history of nonsustained V. tach on event monitor, CKD stage III, lumbar spinal stenosis status post laminectomy, peripheral nerve stimulator secondary to fecal incontinence, polyneuropathy who presents ED today secondary to weakness and inability to ambulate. Admit to PCU for close monitoring Fall/Weakness/L3 compression fx known LSS s/p lumbar surgery in past weakness 2/2 to sars-cov2 vs lumbar spine pathology abnormal lumbar spine CT with lucency around Interpedicular screw on right at L3 and L4 Compression fx noted at L3, unknown if old or new, pt c/o chronic back pain but is unchanged Discussed with Dr. Dukes who compared the scan from prior and does not think anything acutely changed since then. We will get PT and OT evaluation as recommended by orthospine . She has been feeling much better and her weakness has improved Appreciate Ortho input and recommendation We will have home PT as an outpatient Sars-COV 2 + with respiratory sx known exposure 2 weeks prior with partially vaccinated daughter Patient is fully vaccinated Cough for the past 3 to 4 days, weakness, chills and ill feeling Placed on dexamethasone 6 mg IV daily, prn albuterol, incentive spirometry muccinex for cough Monitor oxygen saturations closely Current chest x-ray negative for acute abnormality ESR and CRP elevated Remains stable and does not require any oxygen at rest Her cough is better and denies any shortness of breath She will be discharged home today but will require home quarantine for 8 more days CAD/HTN/HLD follows [facility] Cardiology continue asa, coreg, imdur, crestor, losartan, metoprolol on amlodipine and hctz for HTN - hold HCTZ due to mild renal insuff pt has LINQ monitor in place due to prior hx of syncope and NSVT No acute cardiac symptoms Acute on Chronic Renal Insufficiency stage 3 baseline cr 0.8-0.9 bun/cr 18 and 1.14 gentle IVF x 1 L Creatinine remains stable Chronic Rheumatoid Arthritis hold oral prednisone and xeljanz resume when able Denies any acute arthritis Chronic polyneuropathy continue gabapentin DVT ppx: Lovenox 40mg SQ Q12 (covid protocol) FULL CODE PCP: Kathya Stein Will be discharging home this afternoon with home physical therapy Home Health Attestation I certify that this patient is under my care and that I, or a physicians bankruptcy assistant working with me, had a face to-face encounter that meets the home health mwji-zf-ehib encounter requirements with this patient. The encounter with the patient was in whole, or in part, for the following medical condition, which is the primary reason for home health care (list medical condition): Compression fracture, Covid + I certify that, based on my findings, the following services are medically necessary home health services: My clinical findings support the need for the above services because: OT Assess ADL Status and Restore Function w ADLs PT Assessment for Endurance / Balance / Strength PT Eval for Safety and Mobility PT Eval for Safety, Gait Training, Assistive Devices PT Gait and Balance Training, Strengthening and Safety Skilled Nsg Assessment Further, I certify that my clinical findings support that this patient is homebound (i.e. absences from home require considerable and taxing effort and are for medical reasons or jew services or infrequently or of short duration when for other reasons) because: Transportation Assistance/Unable to Leave Home Unassisted Certification for Home Health Services: Based on the above findings, I certify that this patient is confined to the home and needs intermittent fpc care, physical therapy and/or speech therapy or continues to need occupational therapy. The patient is under my care, and I have initiated the establishment of the plan of care. This patient will be followed by a physician who will periodically review the plan of care. Total Time Total Time Spent Total Time Spent (In Minutes): 35 minutes Discharge Plan Discharge Items Patient Disposition: Home - Home Health Services Reason For Visit: WEAKNESS, COVID + Discharge Diagnosis: Generalized weakness, fall without significant injury, chronic back pain, post vaccination COVID-19 infection, stable CAD, chronic rheumatoid arthritis, chronic polyneuropathy Condition on Discharge: Good Activity: As commented below Activity Comment: Continue outpatient PT Non-emergency contact: Primary Care Provider Call non-emergency contact if: you have any medication questions and your symptoms worsen Follow-up/Referrals: Fiona Stein, [Primary Care Provider] - (Date & Time 10/28/2020 11:00 AM Provider Rafael Wade MD Department [facility] ) Diet: Heart Healthy and Low Sodium (2gm) Addtl Attending Provider Instructions: Please take precautions to avoid fall Continue outpatient physical therapy Keep appointment with your back doctor Finish the course of steroid(decadron) Start prednisone and Xeljanz after finishing the course of steroid(Decadron) Maintain home isolation precaution until 10/26/2020 and after that follow general guidelines as per CDC. Home Isolation COVID-19 Instructions The following information about Home Isolation is from the CDC Website: https://www.cdc.gov/coronavirus/2019-ncov/hcp/fpcdorvl-xyvsjmg-sigztr.html Stay home except to get medical care People who are mildly ill with COVID-19 are able to isolate at home during their illness. You should restrict activities outside your home, except for getting medical care. Do not go to work, school, or public areas. Avoid using public transportation, ride-sharing, or taxis. Separate yourself from other people and animals in your home People: As much as possible, you should stay in a specific room and away from other people in your home. Also, you should use a separate bathroom, if available. Animals: You should restrict contact with pets and other animals while you are sick with COVID-19, just like you would around other people. Although there have not been reports of pets or other animals becoming sick with COVID-19, it is still recommended that people sick with COVID-19 limit contact with animals until more information is known about the virus. When possible, have another me mber of your household care for your animals while you are sick. If you are sick with COVID-19, avoid contact with your pet, including petting, snuggling, being kissed or licked, and sharing food. If you must care for your pet or be around animals while you are sick, wash your hands before and after you interact with pets and wear a face mask. Call ahead before visiting your doctor If you have a medical appointment, call the healthcare provider and tell them that you have or may have COVID-19. This will help the healthcare providers office take steps to keep other people from getting infected or exposed. Wear a face mask You should wear a face mask when you are around other people (e.g., sharing a room or vehicle) or pets and before you enter a healthcare providers office. If you are not able to wear a face mask (for example, because it causes trouble breathing), then people who live with you should not stay in the same room with you, or they should wear a face mask if they enter your room. Cover your coughs and sneezes Cover your mouth and nose with a tissue when you cough or sneeze. Throw used tissues in a lined trash can. Immediately wash your hands with soap and water for at least 20 seconds or, if soap and water are not available, clean your hands with an alcohol-based hand ethernet network architect that contains at least 60% alcohol. Clean your hands often Wash your hands often with soap and water for at least 20 seconds, especially after blowing your nose, coughing, or sneezing; going to the bathroom; and before eating or preparing food. If soap and water are not readily available, use an alcohol-based hand ethernet network architect with at least 60% alcohol, covering all surfaces of your hands and rubbing them together until they feel dry. Soap and water are the best option if hands are visibly dirty. Avoid touching your eyes, nose, and mouth with unwashed hands. Avoid sharing personal household items You should not share dishes, drinking glasses, cups, eating utensils, towels, or bedding with other people or pets in your home. After using these items, they should be washed thoroughly with soap and water. Clean all high-touch surfaces everyday High touch surfaces include counters, tabletops, doorknobs, bathroom fixtures, toilets, phones, keyboards, tablets, and bedside tables. Also, clean any surfaces that may have blood, stool, or body fluids on them. Use a household cleaning spray or wipe, according to the label instructions. Labels contain instructions for safe and effective use of the cleaning product including precautions you should take when applying the product, such as wearing gloves and making sure you have good ventilation during use of the product. Monitor your symptoms Seek prompt medical attention if your illness is worsening (e.g., difficulty breathing).Beforeseeking care, call your healthcare provider and tell them that you have, or are being evaluated for, COVID-19. Put on a face mask before you enter the facility. These steps will help the healthcare providers office to keep other people in the office or waiting room from getting infected or exposed. Ask your healthcare provider to call the local or state health department. Persons who are placed under active monitoring or facilitated self- monitoring should follow instructions provided by their local health department or occupational health professionals, as appropriate. When working with your local health department check their available hours. If you have a medical emergency and need to call 911, notify the dispatch personnel that you have, or are being evaluated for COVID-19. If possible, put on a face mask before emergency medical services arrive. Discontinuing home isolation Patients with confirmed COVID-19 should remain under home isolation precautions until the risk of secondary transmission to others is thought to be low. The decision to discontinue home isolation precautions should be made on a adhg-az-cubi basis, in consultation with healthcare providers and formerly [facility] and local health departments. Pending Studies at Discharge: No Stand-Alone Forms: [facility], Smoking Cessation Medications and DC Order Prescriptions: New dexamethasone [Decadron] 6 mg tablet 6 mg PO DAILY Qty: 7 RF: 0 Continued clonazepam 0.5 mg tablet 0.5 mg PO HS PRN (Reason: Anxiety) RF: 0 hydrochlorothiazide 25 mg tablet 25 mg PO MOWEFR RF: 0 rosuvastatin [Crestor] 40 mg tablet 40 mg PO QPM RF: 0 aspirin [Adult Low Dose Aspirin] 81 mg tablet,delayed release (DR/EC) 81 mg PO MOWEFR RF: 0 losartan [Cozaar] 50 mg tablet 50 mg PO DAILY RF: 0 omeprazole 20 mg capsule,delayed release(DR/EC) 40 mg PO QAM RF: 0 baclofen 10 mg tablet 10 mg PO TID PRN (Reason: pain/spasm) RF: 0 prednisone 5 mg tablet 7.5 mg PO DAILY RF: 0 amlodipine 2.5 mg tablet 2.5 mg PO DAILY RF: 0 albuterol sulfate 90 mcg/actuation HFA aerosol inhaler 1 inh inhalation Q4H PRN (Reason: Shortness Of Breath) RF: 0 melatonin 5 mg capsule 5 mg PO HS PRN (Reason: Sleep) RF: 0 ascorbate calcium (vitamin C) 500 mg tablet 500 mg PO DAILY RF: 0 gabapentin 300 mg capsule 600 mg PO HS RF: 0 simethicone 125 mg Tablet,Chewable 125 mg PO BID PRN (Reason: Unknown) RF: 0 metoprolol succinate [Toprol XL] 25 mg Tablet Extended Release 24 Hr 37.5 mg PO QAM RF: 0 Xeljanz XR 11 mg Tablet Extended Release 24 Hr 11 mg PO DAILY RF: 0 gabapentin 300 mg capsule 300 mg PO BID RF: 0 metoprolol succinate 25 mg tablet extended release 24 hr 25 mg PO HS RF: 0 isosorbide mononitrate 30 mg tablet extended release 24 hr 30 mg PO DAILY RF: 0 Discharge Orders: Discharge Order (Routine); Ordered 10/19/20 Ordered By: Lizeth Mcdonald Admission Data Admit Date/Time: 10/17/20 16:49 Attending Provider: Lizeth Mcdonald Admit Provider: Lizeth Mcdonald Primary Care Provider: Fiona Stein Other Providers: Amilcar Dukes ; [facility] Other Interventions: Discharge Summary Assessment (RN) Last Done: 10/19/20 16:44
== END 2020-10-19 17:32 | disposition home health service (06) ==
LOC: ED 12:56 → 2E 12:56 → 2S 10-19 14:52

== ENCOUNTER 2020-10-27 12:26 | Inpatient (IN) ==
--- NOTE | 2020-10-27 14:18 | Emergency Department Note ---
Impression & Plan Acute respiratory failure with hypoxemia, Pneumonia due to 2019 novel coronavirus, Dehydration ED Provider Note NAME: ESTELLE CARRIZALES AGE: 85 SEX: F : 1935 ARRIVES VIA: Walk-In INFORMANT: Patient, ED PROVIDER(S): Tani Skelton MD Chief Complaint: Shortness of breath, weakness HPI: Patient does present with worsening shortness of breath and associated weakness. The patient does have a recent diagnosis of Covid status post discharge. Patient states that at the time of the discharge the patient did have improvement of her symptoms compared to when she was admitted but over the last several days since discharge the patient has had worsening symptoms. The patient has had a cough which she states is nonproductive. The patient denies any lower extremity edema. Patient has had decreased appetite as she has had significant nausea while taking steroid therapy. Patient denies any fevers or chills. The patient has a remote history of smoking. Not actively smoking. Patient denies any prior history of DVT or PE. Patient has had nausea but without vomiting. Patient denies any abdominal pains but does feel some chest tightness and shortness of breath which is worse with exertion or activity. The patient does not wear oxygen at home. ROS: See HPI for pertinent positives and negatives. A total of 10 systems were reviewed and otherwise negative. Past medical history: See below Surgical history: See below Social history: See below Physical Exam: GENERAL: Wearing a mask, mildly ill in appearance, wearing glasses. EYE EXAM: Normal conjunctiva. PERRL, no anisocoria and EOM's grossly intact w/o pain. NECK: Supple, no nuchal rigidity, no adenopathy, non-tender. No signs of meningi smus. LUNGS: Crackles present throughout. Normal chest wall mechanics. HEART: NSR, no MRG. ABDOMEN: Abdomen soft, non-tender, normo-active bowel sounds, no masses, no rebound or guarding. BACK: No CVA TTP. SKIN: No rashes and no bruising. UPPER EXTREMITIES: Upper extremities are grossly normal. LOWER EXTREMITIES: Grossly normal, no edema. Negative Homans' sign bilaterally. NEURO EXAM: A&O x3, cranial nerves II-XII grossly intact, normal speech, moves all 4 extremities on command w/o issue. Differential diagnoses: Reactive airway disease, pneumonia, pneumothorax, COPD, CHF, infections, cardiac ischemia, pulmonary embolism, musculoskeletal, gastrointestinal, as well as other pathologies. Course: Patient was seen and evaluated the bedside. Full history physical exam was performed. EKG interpreted by me Sinus bradycardia, rate of 55, normal intervals, normal axis, no ST changes or T WI. Imaging Studies: See Below Cardiac monitoring: An order was placed for continuous cardiac monitoring. The monitor shows a rate of 63 with sinus rhythm. MDM: Patient did present with concern for shortness of breath. The patient did have blood work completed along with a chest x-ray and was treated symptomatically. As the patient does have multifocal pneumonia seen on her x-ray I did order blood cultures the patient was treated given the improvement in symptoms with recurrence of oxygen requirement. Dexamethasone was also ordered. Patient has white count of 14 with normal H&H and platelet count. The patient's kidney function is unremarkable. VBG with no hypercarbia. Slight kidney dysfunction with creatinine 1.2. She does have some prerenal azotemia. The patient did receive IV fluids. Urinalysis does look like she has infection. Zosyn should treat urine as well as possible chest infection if it is concomitantly bacterial and not just Covid. I did speak with the on-call hospitalist and the patient was admitted by Dr. Duran. Critical Care: I have personally spent 56 minutes of critical care time in direct management of this patient. This includes bedside care, interpretation of diagnostic studies, and testing, discussion with consultants, patient, and family members, and other require inpatient management activities. This 56 minutes is in excess of all separately billable procedures. Past Med/Surg History Medical History Acquired right foot drop Arachnoiditis CAD (coronary artery disease) Cervical radiculopathy Degenerative joint disease of knee Dyslipidemia Facet syndrome, lumbar Greater trochanteric bursitis Hypertension Left knee pain Lumbago Lumbar compression fracture L1 acute on chronic MRI 03/2019 Lumbar postlaminectomy syndrome Lumbar radiculitis Lumbar spinal stenosis Myocardial infarct, old Osteoarthritis Osteoporosis Peripheral neuropathy Pes anserinus tendonitis of right lower extremity Postoperative seroma L2-4 Rheumatoid arthritis Rheumatoid arthritis of shoulder Right knee pain Status post TKA taking shots due to bursitis Right knee pain Surgical History History of adenoidectomy History of angioplasty History of breast biopsy History of hysterectomy History of loop recorder follows with Dr Bergeron History of lumbosacral spine surgery flexible rainer and johann charlton History of PTCA History of tonsillectomy History of total shoulder replacement Right S/P total knee arthroplasty Right Family History Father Myocardial infarction Brother Myocardial infarction Other Family history non-contributory Denies family history of Ovarian cancer Prostate cancer Breast cancer Colorectal cancer Social History Smoking Status: Never smoker Second Hand Exposure: No; Do You Dip or Chew Tobacco: No; Tobacco Cessation Education Requested by Patient: No Hx Alcohol Use: No Hx Substance Use: No Preferred Language: Chinese Communication Ability: Effective Visual Impairment: No Limitations Hearing Ability: Normal Oil Well Driller Required: No Beliefs That Will Affect Care: None marital status: Current Living Situation: Spouse current occupational status: retired Other Information That Helps Us Care for You: No Feels Safe at Home: Yes Safety Concerns: Feels Safe At This Time Assistive Devices: Cane Allergies Allergies Allergy/AdvReac Type Severity Reaction Status Date / Time morphine Allergy Severe SHORTNESS Verified 10/17/20 14:34 OF BREATH shrimp Allergy Severe GI SYMPTOMS Verified 10/17/20 14:34 Sulfa (Sulfonamide Allergy Intermediate HIVES Verified 10/17/20 14:34 Antibiotics) benzonatate Allergy Unknown GI UPSET Verified 10/17/20 14:34 codeine Allergy Unknown NAUSEA Verified 10/17/20 14:34 lisinopril Allergy Unknown GI SYMPTOMS Verified 10/17/20 14:34 adhesive AdvReac Intermediate TAPE - RASH Verified 10/17/20 14:34 tramadol AdvReac Intermediate Nausea Verified 10/17/20 14:34 Home Meds Home Medications Medication Instructions Recorded Confirmed clonazepam 0.5 mg tablet 0.5 mg PO HS PRN tab 11/14/17 10/27/20 hydrochlorothiazide 25 mg tablet 25 mg PO MOWEFR tab 11/14/17 10/27/20 rosuvastatin 40 mg tablet (Crestor) 40 mg PO QPM 11/14/17 10/27/20 aspirin 81 mg tablet,delayed 81 mg PO MOWEFR tab 02/06/18 10/27/20 release (Adult Low Dose Aspirin) gabapentin 300 mg capsule 300 mg PO BID 12/25/18 10/27/20 gabapentin 300 mg capsule 600 mg PO HS 12/25/18 10/27/20 metoprolol succinate 25 mg 37.5 mg PO QAM 12/25/18 10/27/20 tablet,extended release 24 hr (Toprol XL) simethicone 125 mg chewable tablet 125 mg PO BID PRN 12/25/18 10/27/20 tofacitinib 11 mg tablet,extended 11 mg PO DAILY 12/25/18 10/27/20 release 24 hr (Xeljanz XR) baclofen 10 mg tablet 10 mg PO TID PRN tab 07/31/19 10/27/20 amlodipine 2.5 mg tablet 2.5 mg PO DAILY 06/10/20 10/27/20 losartan 50 mg tablet (Cozaar) 50 mg PO DAILY tab 06/21/20 10/27/20 albuterol sulfate 90 mcg/actuation 1 inh INHALATION Q4H PRN g 08/22/20 10/27/20 aerosol inhaler ascorbate calcium (vitamin C) 500 500 mg PO DAILY 08/22/20 10/27/20 mg tablet melatonin 5 mg capsule 5 mg PO HS PRN 08/22/20 10/27/20 omeprazole 20 mg capsule,delayed 40 mg PO QAM cap 08/22/20 10/27/20 release isosorbide mononitrate 30 mg 30 mg PO DAILY 10/17/20 10/27/20 tablet,extended release 24 hr metoprolol succinate 25 mg 25 mg PO HS 10/17/20 10/27/20 tablet,extended release 24 hr Previous Rx's Medication Instructions Recorded dexamethasone 6 mg tablet 6 mg PO DAILY #7 tab 10/19/20 (Decadron) Results & Data (ED) Vital Signs Vital Signs - 24 hr 10/27/20 12:29 10/27/20 12:37 10/27/20 13:10 Temperature 36.6 C Temperature Source Oral Pulse Rate 61 52 L Pulse Rate [Apical] Pulse Rate from SpO2 Sensor 52 L Respiratory Rate 23 26 H Respiratory Effort / Characteristics Spontaneous Short of Breath Respiratory Depth Respiratory Pattern Regular Blood Pressure 102/56 L Blood Pressure Mean 71 Pulse Oximetry 85 L 93 100 Oxygen Delivery Method Room Air Nasal Cannula Oxygen Flow Rate 2 Sepsis Recent Fever Within 48 Hours No Sepsis New/Unexplained Change in Mental Status No Sepsis Action Taken by Nursing No Action Required Oxygen Flow Rate - Titration 10/27/20 13:13 10/27/20 13:27 10/27/20 13:30 Temperature Temperature Source Pulse Rate 53 L Pulse Rate [Apical] 51 L Pulse Rate from SpO2 Sensor 50 L Respiratory Rate 18 20 Respiratory Effort / Characteristics Non-Labored Respiratory Depth Normal Respiratory Pattern Blood Pressure Blood Pressure Mean Pulse Oximetry 98 97 Oxygen Delivery Method Nasal Cannula Nasal Cannula Oxygen Flow Rate 4 Sepsis Recent Fever Within 48 Hours Sepsis New/Unexplained Change in Mental Status Sepsis Action Taken by Nursing Oxygen Flow Rate - Titration 4 10/27/20 14:00 10/27/20 14:30 10/27/20 14:50 Temperature Temperature Source Pulse Rate 54 L 52 L Pulse Rate [Apical] Pulse Rate from SpO2 Sensor 54 L 51 L Respiratory Rate 23 27 H Respiratory Effort / Characteristics Respiratory Depth Respiratory Pattern Blood Pressure 125/61 Blood Pressure Mean 82 Pulse Oximetry 94 96 97 Oxygen Delivery Method Nasal Cannula Oxygen Flow Rate 4 Sepsis Recent Fever Within 48 Hours Sepsis New/Unexplained Change in Mental Status Sepsis Action Taken by Nursing Oxygen Flow Rate - Titration 10/27/20 15:01 10/27/20 15:30 Temperature Temperature Source Pulse Rate 51 L 54 L Pulse Rate [Apical] Pulse Rate from SpO2 Sensor 50 L 55 L Respiratory Rate 27 H 25 H Respiratory Effort / Characteristics Respiratory Depth Respiratory Pattern Blood Pressure 121/65 127/69 Blood Pressure Mean 83 88 Pulse Oximetry 96 95 Oxygen Delivery Method Oxygen Flow Rate Sepsis Recent Fever Within 48 Hours Sepsis New/Unexplained Change in Mental Status Sepsis Action Taken by Nursing Oxygen Flow Rate - Titration Home Medications Current Medication List: was personally reviewed by me Laboratory Data Attestation: I reviewed the patient's lab results. Result diagrams: 10/27/20 14:42 10/27/20 14:42 Lab Results 10/27/20 10/27/20 10/27/20 Range/Units 14:42 14:42 14:42 WBC 14.17 H (4.8-10.8) K/uL RBC 3.91 L (4.2-5.4) M/uL Hgb 12.5 (12.0-16.0) g/dL Hct 37.7 (37-47) % MCV 96.4 (80-100) fL MCH 32.0 (25-34) pg MCHC 33.2 (32-36) g/dL RDW Std Deviation 50.7 H (36.4-46.3) fL RDW Coeff of Bryan 14.3 (11.5-14.5) % Plt Count 384 (130-400) K/uL MPV 9.5 (7.4-10.4) fL Immature Gran % (Auto) 3.9 % Neut % (Auto) 85.1 % Lymph % (Auto) 6.1 % Edgar % (Auto) 4.7 % Eos % (Auto) 0.1 % Baso % (Auto) 0.1 % Neut # (Auto) 12.06 H (1.4-6.5) K/uL Lymph # (Auto) 0.86 L (1.2-3.4) K/uL Edgar # (Auto) 0.66 H (0.11-0.59) K/uL Eos # (Auto) 0.02 (0-0.5) K/uL Baso # (Auto) 0.02 (0-0.2) K/uL Immature Gran # (Auto) 0.55 H (0.00-0.02) K/uL PT 9.8 (9.0-12.0) Seconds INR 1.0 (0.9-1.1) APTT 21.6 (21.0-31.0) Seconds PTT Ratio 0.8 D-Dimer (0-500) ug/L FEU VBG pH (7.36-7.41) VBG pCO2 (38-50) mmHg VBG pO2 mmHg VBG HCO3 mmol/L VBG O2 Saturation % VBG Base Excess mEq/L Barometric Pressure mm/Hg Sodium 137 (136-145) mmol/L Potassium 4.4 (3.5-5.1) mmol/L Chloride 105 (98-107) mmol/L Carbon Dioxide 26 (21-32) mmol/L Anion Gap 6.0 (3-11) BUN 42 H (7-18) mg/dl Creatinine 1.22 H (0.6-1.2) mg/dl Est Cr Clr Drug Dosing Not Reportable Est GFR ( Amer) 47.1 ml/min Est GFR (Non-Af Amer) 40.6 ml/min BUN/Creatinine Ratio 34.6 H (10-20) Glucose 149 H (70-99) mg/dl Calcium 9.5 (8.5-10.1) mg/dl Magnesium 2.8 H (1.8-2.4) mg/dl Ferritin (8-388) ng/ml Total Bilirubin 0.3 (0.2-1) mg/dl AST 25 (15-37) U/L ALT 22 (12-78) U/L Alkaline Phosphatase 66 (45-117) U/L Troponin I < 0.015 (0-0.045) ng/ml C-Reactive Protein (0-0.29) mg/dl NT-Pro-B Natriuret Pep 345 (0-1800) pg/ml Total Protein 7.4 (6.4-8.2) gm/dl Albumin 2.8 L (3.4-5.0) gm/dl Globulin 4.6 H (2.5-4.0) gm/dl Albumin/Globulin Ratio 0.6 L (0.9-2) Procalcitonin (0-0.5) ng/ml COVID-19 Eval Order SARS-CoV-2 (PCR) (Negative) 10/27/20 10/27/20 10/27/20 Range/Units 14:42 14:42 14:42 WBC (4.8-10.8) K/uL RBC (4.2-5.4) M/uL Hgb (12.0-16.0) g/dL Hct (37-47) % MCV (80-100) fL MCH (25-34) pg MCHC (32-36) g/dL RDW Std Deviation (36.4-46.3) fL RDW Coeff of Bryan (11.5-14.5) % Plt Count (130-400) K/uL MPV (7.4-10.4) fL Immature Gran % (Auto) % Neut % (Auto) % Lymph % (Auto) % Edgar % (Auto) % Eos % (Auto) % Baso % (Auto) % Neut # (Auto) (1.4-6.5) K/uL Lymph # (Auto) (1.2-3.4) K/uL Edgar # (Auto) (0.11-0.59) K/uL Eos # (Auto) (0-0.5) K/uL Baso # (Auto) (0-0.2) K/uL Immature Gran # (Auto) (0.00-0.02) K/uL PT (9.0-12.0) Seconds INR (0.9-1.1) APTT (21.0-31.0) Seconds PTT Ratio D-Dimer 3800 H* (0-500) ug/L FEU VBG pH (7.36-7.41) VBG pCO2 (38-50) mmHg VBG pO2 mmHg VBG HCO3 mmol/L VBG O2 Saturation % VBG Base Excess mEq/L Barometric Pressure mm/Hg Sodium (136-145) mmol/L Potassium (3.5-5.1) mmol/L Chloride (98-107) mmol/L Carbon Dioxide (21-32) mmol/L Anion Gap (3-11) BUN (7-18) mg/dl Creatinine (0.6-1.2) mg/dl Est Cr Clr Drug Dosing Est GFR ( Amer) ml/min Est GFR (Non-Af Amer) ml/min BUN/Creatinine Ratio (10-20) Glucose (70-99) mg/dl Calcium (8.5-10.1) mg/dl Magnesium (1.8-2.4) mg/dl Ferritin (8-388) ng/ml Total Bilirubin (0.2-1) mg/dl AST (15-37) U/L ALT (12-78) U/L Alkaline Phosphatase (45-117) U/L Troponin I (0-0.045) ng/ml C-Reactive Protein (0-0.29) mg/dl NT-Pro-B Natriuret Pep (0-1800) pg/ml Total Protein (6.4-8.2) gm/dl Albumin (3.4-5.0) gm/dl Globulin (2.5-4.0) gm/dl Albumin/Globulin Ratio (0.9-2) Procalcitonin (0-0.5) ng/ml COVID-19 Eval Order Covid19 at [facility] SARS-CoV-2 (PCR) POSITIVE A* (Negative) 10/27/20 10/27/20 10/27/20 Range/Units 14:42 14:42 15:18 WBC (4.8-10.8) K/uL RBC (4.2-5.4) M/uL Hgb (12.0-16.0) g/dL Hct (37-47) % MCV (80-100) fL MCH (25-34) pg MCHC (32-36) g/dL RDW Std Deviation (36.4-46.3) fL RDW Coeff of Bryan (11.5-14.5) % Plt Count (130-400) K/uL MPV (7.4-10.4) fL Immature Gran % (Auto) % Neut % (Auto) % Lymph % (Auto) % Edgar % (Auto) % Eos % (Auto) % Baso % (Auto) % Neut # (Auto) (1.4-6.5) K/uL Lymph # (Auto) (1.2-3.4) K/uL Edgar # (Auto) (0.11-0.59) K/uL Eos # (Auto) (0-0.5) K/uL Baso # (Auto) (0-0.2) K/uL Immature Gran # (Auto) (0.00-0.02) K/uL PT (9.0-12.0) Seconds INR (0.9-1.1) APTT (21.0-31.0) Seconds PTT Ratio D-Dimer (0-500) ug/L FEU VBG pH 7.38 (7.36-7.41) VBG pCO2 44 (38-50) mmHg VBG pO2 18 mmHg VBG HCO3 26 mmol/L VBG O2 Saturation < 60.0 % VBG Base Excess 0.5 mEq/L Barometric Pressure 732.3 mm/Hg Sodium (136-145) mmol/L Potassium (3.5-5.1) mmol/L Chloride (98-107) mmol/L Carbon Dioxide (21-32) mmol/L Anion Gap (3-11) BUN (7-18) mg/dl Creatinine (0.6-1.2) mg/dl Est Cr Clr Drug Dosing Est GFR ( Amer) ml/min Est GFR (Non-Af Amer) ml/min BUN/Creatinine Ratio (10-20) Glucose (70-99) mg/dl Calcium (8.5-10.1) mg/dl Magnesium (1.8-2.4) mg/dl Ferritin 426.4 H (8-388) ng/ml Total Bilirubin (0.2-1) mg/dl AST (15-37) U/L ALT (12-78) U/L Alkaline Phosphatase (45-117) U/L Troponin I (0-0.045) ng/ml C-Reactive Protein 4.47 H (0-0.29) mg/dl NT-Pro-B Natriuret Pep (0-1800) pg/ml Total Protein (6.4-8.2) gm/dl Albumin (3.4-5.0) gm/dl Globulin (2.5-4.0) gm/dl Albumin/Globulin Ratio (0.9-2) Procalcitonin < 0.05 (0-0.5) ng/ml COVID-19 Eval Order SARS-CoV-2 (PCR) (Negative) Administered Medications Miscellaneous (Patient's Height Needed) 1 ea N/A Q2H PAULA Stop: 11/26/20 18:14 Last Admin: 10/27/20 18:45 Dose: 1 ea Documented by: [id number] Discontinued Medications Dexamethasone Sodium Phosphate (DexamethasonePf 10 Mg/Ml Vial) 6 mg IV NOW ONE Stop: 10/27/20 14:46 Last Admin: 10/27/20 15:36 Dose: 6 mg Documented by: [id number] Sodium Chloride (Nss 1000ml) 1,000 mls @ 999 mls/hr IV .Q1H1M ONE Stop: 10/27/20 15:45 Last Infusion: 10/27/20 18:45 Dose: 0 mls/hr Documented by: [id number] Admin: 10/27/20 15:36 Dose: 999 mls/hr Documented by: [id number] Piperacillin Sod/Tazobactam Sod (Zosyn) 4.5 gm in 120 mls @ 240 mls/hr IV NOW ONE Stop: 10/27/20 15:14 Last Infusion: 10/27/20 16:12 Dose: 0 mls/hr Documented by: [id number] Admin: 10/27/20 15:36 Dose: 240 mls/hr Documented by: [id number] Ioversol (Optiray 320 125ml) 118 ml IV ONCE ONE Stop: 10/27/20 17:30 Last Admin: 10/27/20 17:29 Dose: 118 ml Documented by: [id number] Imaging Data Radiologist's Impression: Chest X-Ray 10/27/20 14:18 XR chest 1V portable HISTORY: 85 years-old Female Dyspnea acute shortness of breath COMPARISON: Chest radiograph 10/17/2020 TECHNIQUE: Portable AP view of the chest FINDINGS: Cardiac silhouette is enlarged. Loop recorder device. No pneumothorax or large pleural effusion. Mild blunting of the costophrenic angles. Interval development of patchy left midlung and right basilar predominant airspace opacities background interstitial coarsening. Degenerative changes of the spine and left shoulder. Right shoulder total joint arthroplasty. IMPRESSION: Interval development of bibasilar and left midlung predominant airspace opacities congestive of multifocal pneumonia. ACT 112: Negative or not required by law. The above report was generated using voice recognition software. It may contain grammatical, syntax or spelling errors. Electronically signed by: Gideon Turner M.D. 10/27/2020 2:40 PM Discharge Plan Visit Data Chief Complaint: Shortness of Breath/Dyspnea Stated Complaint: GETTING OVER COVID,WEAK,SOB,SORE THROAT,REF BY ED Provider: Tani Skelton Discharge Problem: Acute respiratory failure with hypoxemia, Pneumonia due to 2019 novel coronavirus, Dehydration Patient Disposition: Admitted As Inpatient Discharge Instructions Interventions: ED Discharge Assessment Last Done: 10/27/20 17:24
--- NOTE | 2020-10-27 14:41 | XRay Report ---
XR chest 1V portable HISTORY: 85 years-old Female Dyspnea acute shortness of breath COMPARISON: Chest radiograph 10/17/2020 TECHNIQUE: Portable AP view of the chest FINDINGS: Cardiac silhouette is enlarged. Loop recorder device. No pneumothorax or large pleural effusion. Mild blunting of the costophrenic angles. Interval development of patchy left midlung and right basilar p redominant airspace opacities background interstitial coarsening. Degenerative changes of the spine a nd left shoulder. Right shoulder total joint arthroplasty. IMPRESSION: Interval development of bibasilar and left midlung predominant airspace opacities congest le of multifocal pneumonia. ACT 112: Negative or not required by law. The above report was generated using voice recognition software. It may contain grammatical, syntax o r spelling errors. Electronically signed by: Gideon Turner M.D. 10/27/2020 2:40 PM
[2020-10-27] MEDS ORDERED: PIPERACILLIN/TAZOBACTAM 4.5 GM/120 ML BAG IV ONE (14:45)
[2020-10-27] MEDS ORDERED: PIPERACILL/TAZOBAC CONSULT ACTIVE PRN (14:45)
[2020-10-27] MEDS ORDERED: SODIUM CHLORIDE 0.9% 1000ML 1,000 ML IV ONE (14:45)
[2020-10-27] MEDS ORDERED: dexAMETHasone**PF** 10 MG/ML VIAL IV ONE (14:45)
[2020-10-27 14:59] LABS: Basophils # (auto) 0.02 K/uL (0-0.2); Basophils % (auto) 0.1 %; Eosinophils # (auto) 0.02 K/uL (0-0.5); Eosinophils % (auto) 0.1 %; Hematocrit (blood only) 37.7 % (37-47); Hemoglobin 12.5 g/dL (12.0-16.0); Immature Granulocytes # (auto) 0.55 K/uL (0.00-0.02); Immature Granulocytes % (auto) 3.9 %; Lymphocytes # (auto) 0.86 K/uL (1.2-3.4); Lymphocytes % (auto) 6.1 %; Mean Corpuscular Hgb Conc 33.2 g/dL (32-36); Mean Corpuscular Volume 96.4 fL (80-100); Mean Platelet Volume 9.5 fL (7.4-10.4); Monocytes # (auto) 0.66 K/uL (0.11-0.59); Monocytes % (auto) 4.7 %; Neutrophils # (auto) 12.06 K/uL (1.4-6.5); Neutrophils % (auto) 85.1 %; Platelet Count 384 K/uL (130-400); RDW Coefficient of Variation 14.3 % (11.5-14.5); RDW Standard Deviation 50.7 fL (36.4-46.3); Red Blood Count 3.91 M/uL (4.2-5.4); White Blood Count 14.17 K/uL (4.8-10.8)
[2020-10-27 15:09] LABS: Partial Thromboplastin Ratio 0.8; Partial Thromboplastin Time 21.6 Seconds (21.0-31.0); Prothrombin Time 9.8 Seconds (9.0-12.0)
[2020-10-27 15:17] LABS: Alanine Aminotransferase 22 U/L (12-78); Albumin Level 2.8 gm/dl (3.4-5.0); Aspartate Aminotransferase 25 U/L (15-37); BUN Creatinine Ratio 34.6 (10-20); Blood Urea Nitrogen 42 mg/dl (7-18); Calcium 9.5 mg/dl (8.5-10.1); Carbon Dioxide 26 mmol/L (21-32); Chloride 105 mmol/L (98-107); Est GFR (African American) 47.1 ml/min; Est GFR (Non-African American) 40.6 ml/min; Glucose 149 mg/dl (70-99); Magnesium 2.8 mg/dl (1.8-2.4); Potassium 4.4 mmol/L (3.5-5.1); Sodium 137 mmol/L (136-145)
[2020-10-27 15:22] LABS: Albumin Globulin Ratio 0.6 (0.9-2); Alkaline Phosphatase 66 U/L (45-117); Bilirubin,Total 0.3 mg/dl (0.2-1); Globulin 4.6 gm/dl (2.5-4.0); NT Pro B Type Natriuretic Pept 345 pg/ml (0-1800); Total Protein 7.4 gm/dl (6.4-8.2); Troponin I < 0.015 ng/ml (0-0.045)
[2020-10-27 15:27] LABS: Base Excess VBG 0.5 mEq/L; HCO3 VBG 26 mmol/L; PCO2 VBG 44 mmHg (38-50); PO2 VBG 18 mmHg; pH VBG 7.38 (7.36-7.41)
[2020-10-27 15:28] LABS: Oxygen Saturation VBG < 60.0 %
[2020-10-27 15:33] LABS: Appearance Urine Cloudy (Clear); Bacteria Urine Automated 4+ (Negative); Bilirubin Urine Negative (Negative); Blood Urine 2+ (Negative); Color Urine Yellow; Glucose Urine UA Negative (Negative); Ketones Urine Negative (Negative); Leukocyte Esterase Urine 2+ (Negative); Nitrite Urine Positive (Negative); Protein Urine 2+ (Negative); RBC Urine Automated 0-4 /hpf (0-4); Urobilinogen Urine Negative (Negative); WBC Urine Automated >30 /hpf (0-5); pH Urine 5.5 (4.5-7.5)
--- NOTE | 2020-10-27 16:03 | History & Physical Report ---
Date of Service October 27, 2020 Assessment & Plan (1) Acute respiratory failure with hypoxia: (2) Multifocal pneumonia: (3) Rheumatoid arthritis: (4) SARS-CoV-2 positive: (5) Hypertension: (6) CAD (coronary artery disease): Plan: This is a 85-year-old female with PMH of rheumatoid arthritis on immunosuppressive therapy, CAD, HTN, HLD, AAA, history of nonsustained V. tach on event monitor, CKD stage III, lumbar spinal stenosis status post laminectomy, peripheral nerve stimulator secondary to fecal incontinence, polyneuropathy, recently covid positive on 10/17 who presents with worsening SOB and weakness x 5 days. Acute respiratory failure with hypoxia Hypoxic at 85% on room air, now 97% on 4 L NC In setting of recent Sars-COV 2 + test, multifocal PNA Continue supplemental O2 Monitor respiratory status closely Recent Sars-COV 2 + on 10/17/20 with respiratory sx - covid test from today is pending Known exposure 2 weeks prior with partially vaccinated daughter Patient is fully vaccinated Recently admitted 10/17-10/20, completed PO course of Dexamethasone Symptoms recurred 5 days ago - SOB, weakness, fatigue, dry cough, diarrhea Resume dexamethasone 6 mg IV daily Out of window for Remdesivir therapy Covid isolation precautions Multifocal PNA CXR with nterval development of bibasilar and left midlung predominant airspace opacities congestive of multifocal pneumonia Likely viral etiology but cannot exclude secondary bacterial infection Continue empiric Zosyn Follow blood cultures PRN duonebs, incentive spirometry, mucinex Diarrhea In setting of viral infection C diff, stool cultures pending Received IV fluids in ER Urinary tract infection Abnormal UA - urine cx pending Receiving empiric Zosyn CAD HTN HLD Follows with [facility] Continue asa, coreg, imdur, crestor, losartan, metoprolol On amlodipine and hctz for HTN - hold HCTZ tomorrow due to dry clinical status and reassess Patient has LINQ monitor in place due to prior hx of syncope and NSVT CKD III Variable Cr baseline from 0.8-1.1 Creatinine 1.22 today Gentle IVF x 1 L Repeat BMP in AM Rheumatoid Arthritis Holding Xeljanz Resume when able Chronic polyneuropathy Continue gabapentin DVT ppx: Lovenox 40mg SQ Q24 Code status: FULL PCP: Libertad Stein Dispo: Admitted to PCU. Discharge planning ordered Patient seen in collaboration with Dr. Duran. Please see addendum. History of Present Illness Chief Complaint: shortness of breath, weakness, diarrhea Primary Care Provider: Fiona Stein, This is a 85-year-old female with PMH of rheumatoid arthritis on immunosuppressive therapy, CAD, HTN, HLD, AAA, history of nonsustained V. tach on event monitor, CKD stage III, lumbar spinal stenosis status post laminectomy, peripheral nerve stimulator secondary to fecal incontinence, polyneuropathy, recently covid positive on 10/17 who presents with worsening SOB and weakness x 5 days. Patient was recently admitted to our service from 10/17-10/20 in setting of fall with compression fracture as well as respiratory distress in setting of Covid. Was previously vaccinated. Received IV dexamethasone during admission and was discharged on oral course of steroids, which she recently completed. When discharged, felt very well for the first 2 days before becoming more weak, tired and dyspneic, needing to lie down and catch her breath after ambulating from restroom back to her bed. Also endorses dry cough, sweating and chills as well as decreased appetite and diarrhea. Tried to drink Gatorade and water but admittedly drank less than usual. Did not take her temperature so unsure about fever. Denies any lightheadedness, chest pain or palpitations. No nausea or vomiting. No urinary symptoms. Has been having difficulty sleeping due to steroids. Allergies Allergy/AdvReac Type Severity Reaction Status Date / Time morphine Allergy Severe SHORTNESS Verified 10/17/20 14:34 OF BREATH shrimp Allergy Severe GI SYMPTOMS Verified 10/17/20 14:34 Sulfa (Sulfonamide Allergy Intermediate HIVES Verified 10/17/20 14:34 Antibiotics) benzonatate Allergy Unknown GI UPSET Verified 10/17/20 14:34 codeine Allergy Unknown NAUSEA Verified 10/17/20 14:34 lisinopril Allergy Unknown GI SYMPTOMS Verified 10/17/20 14:34 adhesive AdvReac Intermediate TAPE - RASH Verified 10/17/20 14:34 tramadol AdvReac Intermediate Nausea Verified 10/17/20 14:34 Home Medications Medication Instructions Recorded Confirmed Type clonazepam 0.5 mg tablet 0.5 mg PO HS PRN tab 11/14/17 10/27/20 History hydrochlorothiazide 25 mg tablet 25 mg PO MOWEFR tab 11/14/17 10/27/20 History rosuvastatin 40 mg tablet (Crestor) 40 mg PO QPM 11/14/17 10/27/20 History aspirin 81 mg tablet,delayed 81 mg PO MOWEFR tab 02/06/18 10/27/20 History release (Adult Low Dose Aspirin) gabapentin 300 mg capsule 300 mg PO BID 12/25/18 10/27/20 History gabapentin 300 mg capsule 600 mg PO HS 12/25/18 10/27/20 History metoprolol succinate 25 mg 37.5 mg PO QAM 12/25/18 10/27/20 History tablet,extended release 24 hr (Toprol XL) simethicone 125 mg chewable tablet 125 mg PO BID PRN 12/25/18 10/27/20 History tofacitinib 11 mg tablet,extended 11 mg PO DAILY 12/25/18 10/27/20 History release 24 hr (Xeljanz XR) baclofen 10 mg tablet 10 mg PO TID PRN tab 07/31/19 10/27/20 History amlodipine 2.5 mg tablet 2.5 mg PO DAILY 06/10/20 10/27/20 History losartan 50 mg tablet (Cozaar) 50 mg PO DAILY tab 06/21/20 10/27/20 History albuterol sulfate 90 mcg/actuation 1 inh INHALATION Q4H PRN g 08/22/20 10/27/20 History aerosol inhaler ascorbate calcium (vitamin C) 500 500 mg PO DAILY 08/22/20 10/27/20 History mg tablet melatonin 5 mg capsule 5 mg PO HS PRN 08/22/20 10/27/20 History omeprazole 20 mg capsule,delayed 40 mg PO QAM cap 08/22/20 10/27/20 History release isosorbide mononitrate 30 mg 30 mg PO DAILY 10/17/20 10/27/20 History tablet,extended release 24 hr metoprolol succinate 25 mg 25 mg PO HS 10/17/20 10/27/20 History tablet,extended release 24 hr dexamethasone 6 mg tablet 6 mg PO DAILY #7 tab 10/19/20 10/27/20 Rx (Decadron) Past Med/Surg History Medical History Acquired right foot drop Arachnoiditis CAD (coronary artery disease) Cervical radiculopathy Degenerative joint disease of knee Dyslipidemia Facet syndrome, lumbar Greater trochanteric bursitis Hypertension Left knee pain Lumbago Lumbar compression fracture L1 acute on chronic MRI 03/2019 Lumbar postlaminectomy syndrome Lumbar radiculitis Lumbar spinal stenosis Myocardial infarct, old Osteoarthritis Osteoporosis Peripheral neuropathy Pes anserinus tendonitis of right lower extremity Postoperative seroma L2-4 Rheumatoid arthritis Rheumatoid arthritis of shoulder Right knee pain Status post TKA taking shots due to bursitis Right knee pain Surgical History History of adenoidectomy History of angioplasty History of breast biopsy History of hysterectomy History of loop recorder follows with Dr Bergeron History of lumbosacral spine surgery flexible rainer and does lesi History of PTCA History of tonsillectomy History of total shoulder replacement Right S/P total knee arthroplasty Right Family History Father Myocardial infarction Brother Myocardial infarction Other Family history non-contributory Denies family history of Ovarian cancer Prostate cancer Breast cancer Colorectal cancer Social History Smoking Status: Never smoker Second Hand Exposure: No; Do You Dip or Chew Tobacco: No; Tobacco Cessation Education Requested by Patient: No Hx Alcohol Use: No Hx Substance Use: No Preferred Language: Bhutanese Communication Ability: Effective Visual Impairment: No Limitations Hearing Ability: Normal Director Of Cloud Services Required: No Beliefs That Will Affect Care: None marital status: Current Living Situation: Spouse current occupational status: retired Other Information That Helps Us Care for You: No Feels Safe at Home: Yes Safety Concerns: Feels Safe At This Time Assistive Devices: Cane Review of Systems Review of Systems: At least ten systems reviewed and negative except as noted in the HPI. Physical Exam Physical Exam: Please see Dr. Duran's addendum for physical exam. Results & Data Results & Data ([facility]) Vital Signs (Past 12 Hours) Vital Signs Temp Pulse Pulse Resp BP Pulse Ox 10/27/20 15:30 54 L 25 H 127/69 95 10/27/20 15:01 51 L 27 H 121/65 96 10/27/20 14:50 97 10/27/20 14:30 52 L 27 H 125/61 96 10/27/20 14:00 54 L 23 94 10/27/20 13:30 53 L 20 97 10/27/20 13:27 51 L 18 98 10/27/20 13:10 52 L 26 H 100 10/27/20 12:37 93 10/27/20 12:29 36.6 C 61 23 102/56 L 85 L Laboratory Results Short CBC 10/27/20 Range/Units 14:42 WBC 14.17 H (4.8-10.8) K/uL Hgb 12.5 (12.0-16.0) g/dL Hct 37.7 (37-47) % Plt Count 384 (130-400) K/uL BMP 10/27/20 14:42 Sodium 137 Potassium 4.4 Chloride 105 Carbon Dioxide 26 BUN 42 H Creatinine 1.22 H Glucose 149 H Calcium 9.5 Cardiac Enzymes 10/27/20 Range/Units 14:42 Troponin I < 0.015 (0-0.045) ng/ml Liver Function 10/27/20 Range/Units 14:42 Total Bilirubin 0.3 (0.2-1) mg/dl AST 25 (15-37) U/L ALT 22 (12-78) U/L Alkaline Phosphatase 66 (45-117) U/L Albumin 2.8 L (3.4-5.0) gm/dl Urine 10/27/20 Range/Units Unknown Urine Color Yellow Urine Appearance Cloudy A (Clear) Urine pH 5.5 (4.5-7.5) Ur Specific [place] 1.020 (1.000-1.030) Urine Protein 2+ H (Negative) Urine Glucose (UA) Negative (Negative) Diagnostic Findings Chest X-Ray 10/27/20 14:18 XR chest 1V portable HISTORY: 85 years-old Female Dyspnea acute shortness of breath COMPARISON: Chest radiograph 10/17/2020 TECHNIQUE: Portable AP view of the chest FINDINGS: Cardiac silhouette is enlarged. Loop recorder device. No pneumothorax or large pleural effusion. Mild blunting of the costophrenic angles. Interval development of patchy left midlung and right basilar predominant airspace opacities background interstitial coarsening. Degenerative changes of the spine and left shoulder. Right shoulder total joint arthroplasty. IMPRESSION: Interval development of bibasilar and left midlung predominant airspace opacities congestive of multifocal pneumonia. ACT 112: Negative or not required by law. The above report was generated using voice recognition software. It may contain grammatical, syntax or spelling errors. Electronically signed by: Gideon Turner M.D. 10/27/2020 2:40 PM ECG Additional Comments: Sinus bradycardia Code Status & VTE Plan VTE Prophylaxis Plan VTE Prophylaxis will be ordered: Yes Supervising Physician Co-Signing Physician Notes Patient is an 85-year-old female with history of rheumatoid arthritis, coronary artery disease and other medical problems who was recently diagnosed to have COVID-19 pneumonia presents with history of worsening shortness of breath, generalized weakness, tiredness, poor appetite, nonexpectorant cough, intermittent diarrhea since 5 days duration. Patient received IV dexamethasone during recent hospitalization and was discharged on a course of steroids for COVID-19 infection. Please review HPI for complete details of presentation. She was found to be hypoxic while in ED, requiring 5 L of supplemental oxygen to maintain saturation. Procalcitonin within normal limits. CTA showed no signs of PE. White blood cell count elevated at 14 K. Urinalysis suggestive of possible urinary tract infection. BMP suggestive of BERNADINE. Patient was also transiently bradycardic while in ED which resolved without intervention. Physical Exam: Vitals signs as noted above General Appearance:Moderately built and nourished, no apparent distress Head: normocephalic, Atraumatic Eyes: normal inspection, EOMI Neck: supple, Trachea midline Respiratory/Chest: Decreased breath sounds, + Basal Crackles, No accessory muscle use Cardiovascular: S1, S2, No murmur Abdomen/GI:Soft, Non tender, Bowel sounds present Extremities/Musculoskeletal:normal inspection, no edema, +B/L LE Ecchymosis Neurologic/Psych:AAOX3, grossly no focal neurological deficits Skin: normal color, warm Acute respiratory failure with hypoxia COVID-19 multifocal pneumonia -CTA: Cardiomegaly without pulmonary emboli. Multilobar distribution of segmental groundglass opacities compatible with viral pneumonia. Trace pleural effusions. No adenopathy. Small hiatal hernia. showed no signs of PE Remdesivir less likely beneficial Started on dexamethasone Continue supplemental oxygen as needed Lasix, Nebs as needed Consider pulmonology evaluation if necessary. Empirically started on IV antibiotics CKD III Hold losartan for now given IV contrast Monitor renal function Resume losartan if renal function stable tomorrow. I personally reviewed the record. Patient is interviewed and examined at bedside. Patient's care is coordinated with Sofia Sadler PA-C. Please refer to the documentation above for details of patient's presentation and for discussion of other issues. (1) Rheumatoid arthritis Rheumatoid arthritis location: unspecified site Rheumatoid factor presence: unspecified presence Qualified Code(s): M06.9 - Rheumatoid arthritis, unspecified
[2020-10-27 16:21] LABS: C Reactive Protein 4.47 mg/dl (0-0.29); Ferritin 426.4 ng/ml (8-388)
[2020-10-27 16:34] LABS: D Dimer 3800 ug/L FEU (0-500)
[2020-10-27] MEDS ORDERED: OPTIRAY 320 125ml IV ONE (17:29)
--- NOTE | 2020-10-27 17:57 | CT Scan Report ---
CT angio chest PE protocol CT DOSE: 439.39 mGycm HISTORY: 85 years-old Female with PE. Acute shortness of breath. COVID Positive. TECHNIQUE: Multiple CTA images of the chest were obtained after the intravenous administration of 118 ml Optiray. Coronal and sagittal MIPS were obtained from the axial data set and were submitted for review. All measurements were obtained according to NASCET criteria. A dose lowering technique was u tilized adhering to the principles of ALARA. COMPARISON: Chest radiograph of same day FINDINGS: CTA: Moderate cardiomegaly. Trace pericardial effusion. Extensive coronary artery calcifications. Moderate atherosclerotic plaque of the thoracic aorta without aneurysm or dissection. Reflux of contrast into the hepatic veins and SVC. No pulmonary emboli identified. Loop recorder device. CT CHEST: Prominent right lobe of the thyroid. No adenopathy. No pneumothorax. Trace pleural effusions. Multilo bar bilateral confluent and subpleural groundglass densities are moderate to extensive. No overt pulm onary edema. Mild tracheobronchial secretions. Tiny hiatal hernia with mild distal esophageal wall thickening. Unremarkable soft tissues. Degenerati ve changes of the spine and left shoulder. Right shoulder arthroplasty. IMPRESSION: 1. Cardiomegaly without pulmonary emboli. 2. Multilobar distribution of segmental groundglass opacities compatible with viral pneumonia. 3. Trace pleural effusions. 4. No adenopathy. 5. Small hiatal hernia. ACT 112: Negative or not required by law. The above report was generated using voice recognition software. It may contain grammatical, syntax o r spelling errors. Electronically signed by: Gideon Turner M.D. 10/27/2020 5:55 PM
[2020-10-27] MEDS ORDERED: ALBUTEROL HFA 8 GM INHALER INH PRN (18:07)
[2020-10-27] MEDS ORDERED: ONDANSETRON INJ 2 MG/ML 2 ML VIAL IV PRN (18:07)
[2020-10-27] MEDS ORDERED: BACLOFEN 10 MG TAB PO PRN (18:07)
[2020-10-27] MEDS ORDERED: POLYETHYLENE (MIRALAX) 17 GM PACK PO PRN (18:07)
[2020-10-27] MEDS ORDERED: MELATONIN 3 MG TAB PO PRN (18:15)
[2020-10-27] MEDS ORDERED: ALBUTEROL 0.083% NEBU SOLN 3 ML VIAL NEB PRN (18:16)
[2020-10-27] MEDS: PATIENT'S HEIGHT NEEDED SCH ×2 (18:45→21:33)
[2020-10-27] MEDS: ENOXAPARIN INJ 40 MG/0.4 ML SYR SQ SCH (21:33)
[2020-10-27] MEDS: ZOLPIDEM TARTRATE 5 MG TAB PO PRN (21:55)
[2020-10-27] MEDS: GABAPENTIN 600 MG TAB PO SCH (21:55)
[2020-10-27] MEDS: PIPERACILLIN/TAZOBACTAM 3.375 GM in DEXTROSE 5% 100 ML IV SCH (21:55)
[2020-10-27] MEDS: METOPROLOL SUCC 25MG EXT REL TAB PO SCH (21:55)
[2020-10-27] MEDS: ROSUVASTATIN CALCIUM 20 MG TAB PO SCH (21:56)
[2020-10-28] MEDS: PATIENT'S HEIGHT NEEDED SCH ×5 (01:04→07:11)
[2020-10-28] MEDS: PIPERACILLIN/TAZOBACTAM 3.375 GM in DEXTROSE 5% 100 ML IV SCH ×3 (05:49→20:53)
--- NOTE | 2020-10-28 06:08 | Electrocardiogram Report ---
Test Reason : Blood Pressure : / mmHG Vent. Rate : 055 BPM Atrial Rate : 055 BPM P-R Int : 152 ms QRS Dur : 084 ms QT Int : 450 ms P-R-T Axes : 065 047 047 degrees QTc Int : 430 ms Poor data quality, interpretation may be adversely affected Sinus bradycardia Otherwise normal ECG When compared with ECG of 17-OCT-2020 13:00, Premature ventricular complexes are no longer Present Nonspecific T wave abnormality no longer evident in Inferior leads Confirmed by Miguel Salinas ([id number]) on 10/28/2020 6:08:20 AM Referred By: Confirmed By:Miguel Salinas
[2020-10-28 07:32] LABS: Hematocrit (blood only) 36.2 % (37-47); Hemoglobin 11.9 g/dL (12.0-16.0); Mean Corpuscular Hemoglobin 31.4 pg (25-34); Mean Corpuscular Hgb Conc 32.9 g/dL (32-36); Mean Corpuscular Volume 95.5 fL (80-100); Mean Platelet Volume 9.3 fL (7.4-10.4); Platelet Count 372 K/uL (130-400); RDW Coefficient of Variation 14.1 % (11.5-14.5); RDW Standard Deviation 48.8 fL (36.4-46.3); Red Blood Count 3.79 M/uL (4.2-5.4); White Blood Count 11.07 K/uL (4.8-10.8)
[2020-10-28] MEDS ORDERED: Nursing to Pharmacy Communication SCH (07:45)
[2020-10-28 08:00] LABS: BUN Creatinine Ratio 29.9 (10-20); Calcium 8.9 mg/dl (8.5-10.1); Creatinine Clr Calc Pharmacy 37.1 ml/min; Est GFR (African American) 50.6 ml/min; Est GFR (Non-African American) 43.7 ml/min; Magnesium 2.7 mg/dl (1.8-2.4); Potassium 4.6 mmol/L (3.5-5.1)
[2020-10-28] MEDS: amLODIPine BESYLATE 5 MG TAB PO SCH (08:39)
[2020-10-28] MEDS: PANTOprazole 40 MG TAB PO SCH (08:39)
[2020-10-28] MEDS: dexAMETHasone 6 MG in SYRINGE 0 ML IV SCH (08:39)
[2020-10-28] MEDS: ASPIRIN 81 MG ECTAB PO SCH (08:40)
[2020-10-28] MEDS: ISOSORBIDE MONO EXTENDED REL 30 MG TABCR PO SCH (08:40)
[2020-10-28] MEDS: GABAPENTIN 300 MG CAP PO SCH ×2 (08:40→12:26)
[2020-10-28] MEDS: ASCORBIC ACID 500 MG TAB PO SCH (08:41)
[2020-10-28] MEDS: LACTOBACILLUS ACIDOPHILUS 1 GM PACK PO SCH ×3 (08:42→16:36)
[2020-10-28] MEDS: METOPROLOL SUCC 25MG EXT REL TAB PO SCH ×2 (08:42→20:55)
[2020-10-28] MEDS ORDERED: LOSARTAN POTASSIUM 50 MG TAB PO SCH (09:00)
--- NOTE | 2020-10-28 13:22 | Electrocardiogram Report ---
Test Reason : Blood Pressure : / mmHG Vent. Rate : 048 BPM Atrial Rate : 048 BPM P-R Int : 148 ms QRS Dur : 088 ms QT Int : 482 ms P-R-T Axes : 076 043 053 degrees QTc Int : 430 ms Sinus bradycardia Otherwise normal ECG When compared with ECG of 27-OCT-2020 14:32, No significant change was found Confirmed by Michael Sanderson ([id number]) on 10/28/2020 1:22:05 PM Referred By: REFERRED SELF Confirmed By:Michael Sanderson
[2020-10-28] MEDS ORDERED: FUROSEMIDE 40 MG in SYRINGE 0 ML IV ONE (15:26)
[2020-10-28] MEDS ORDERED: FUROSEMIDE 40 MG/4 ML VIAL IV ONE (15:30)
--- NOTE | 2020-10-28 16:28 | Hospitalist Progress Note ---
Date of Service October 28, 2020 Assessment & Plan (1) Acute respiratory failure with hypoxia: (2) Multifocal pneumonia: (3) Rheumatoid arthritis: (4) SARS-CoV-2 positive: (5) Hypertension: (6) CAD (coronary artery disease): Plan: This is a 85-year-old female with PMH of rheumatoid arthritis on immunosuppressive therapy, CAD, HTN, HLD, AAA, history of nonsustained V. tach on event monitor, CKD stage III, lumbar spinal stenosis status post laminectomy, peripheral nerve stimulator secondary to fecal incontinence, polyneuropathy, recently covid positive on 10/17 who presents with worsening SOB and weakness x 5 days. Acute respiratory failure with hypoxia Hypoxic at 85% on room air, now 97% on 4 L NC In setting of recent Sars-COV 2 + test, multifocal PNA Continue supplemental O2 Monitor respiratory status closely Still requiring about 5 L of oxygen via nasal cannula to maintain saturation Recent Sars-COV 2 + on 10/17/20 with respiratory sx - covid test from today is pending Known exposure 2 weeks prior with partially vaccinated daughter Patient is fully vaccinated Recently admitted 10/17-10/20, completed PO course of Dexamethasone Symptoms recurred 5 days ago - SOB, weakness, fatigue, dry cough, diarrhea Resume dexamethasone 6 mg IV daily Out of window for Remdesivir therapy Covid isolation precautions Remains moderate shortness of breath at rest with cough Will give Lasix 40 mg intravenously x1 to keep her on the dry side Multifocal PNA CXR with nterval development of bibasilar and left midlung predominant airspace opacities congestive of multifocal pneumonia Likely viral etiology but cannot exclude secondary bacterial infection Continue empiric Zosyn Follow blood cultures PRN duonebs, incentive spirometry, mucinex She has been on Zosyn which will cover pneumonia and UTI Diarrhea In setting of viral infection C diff, stool cultures pending Received IV fluids in ER Urinary tract infection Abnormal UA - urine cx pending Receiving empiric Zosyn CAD HTN HLD Follows with [facility] Continue asa, coreg, imdur, crestor, losartan, metoprolol On amlodipine and hctz for HTN - hold HCTZ tomorrow due to dry clinical status and reassess Patient has LINQ monitor in place due to prior hx of syncope and NSVT CKD III Variable Cr baseline from 0.8-1.1 Creatinine 1.22 today Gentle IVF x 1 L Repeat BMP in AM Rheumatoid Arthritis Holding Xeljanz Resume when able Chronic polyneuropathy Continue gabapentin DVT ppx: Lovenox 40mg SQ Q24 Code status: FULL PCP: Libertad Stein Dispo: Admitted to PCU. Discharge planning ordered Admission and Anticipated Discharge Date Admission Date: October 27, 2020 Subjective 10/28/2020 The patient was seen and examined in telemetry unit She is status post COVID-19 infection on 10/17 with full treatment with remdesivir and dexamethasone She is back with increasing shortness of breath and fatigue Covid 19 infection remains positive with chest x-ray showing bibasilar patchy multilobar infiltration Has been complaining of extremely weakness and tiredness Review of Systems Review of Systems: All systems reviewed and are unremarkable except as noted below Respiratory: Moderate shortness of breath at rest Musculoskeletal: General very weak and lethargic Physical Exam Physical Exam: Lying in bed with anxiety and depression Constitutional: well developed, well nourished and + ill appearing Eyes: PERRL, conjunctivae normal, anicteric sclerae ENMT: external ear and nose normal, oropharynx normal Neck: trachea midline, no thyromegaly Respiratory: + respiratory distress (Moderate respiratory distress at rest) and + cough (Minimal cough) Auscultation: + diminished lung sounds, + crackles and + wheezes Cardiovascular: Rate/Rhythm: regular rate and regular rhythm; not tachycardic Heart Sounds: normal S1 and normal S2; no murmur Gastrointestinal (Abdomen): normal bowel sounds, soft, nontender, no hepatosplenomegaly Musculoskeletal: Extremely weak and lethargic but no acute arthritis in any joint Neurologic: Alert, awake and oriented x3. Generally very weak and lethargic without any focal neuro deficit Results & Data Results & Data ([facility]) Vital Signs (Past 12 Hours) Vital Signs Temp Pulse Pulse Resp BP Pulse Ox Pulse Ox 10/28/20 16:00 62 10/28/20 15:58 36.7 C 60 18 105/58 L 93 10/28/20 14:21 90 10/28/20 12:31 94 10/28/20 11:03 36.5 C 60 20 111/64 95 10/28/20 09:30 93 10/28/20 07:54 36.7 C 61 21 140/72 94 10/28/20 07:00 52 L Pulse Ox Pulse Ox 10/28/20 16:00 10/28/20 15:58 10/28/20 14:21 93 83 L 10/28/20 12:31 10/28/20 11:03 10/28/20 09:30 10/28/20 07:54 10/28/20 07:00 Laboratory Results Short CBC 10/28/20 Range/Units 06:46 WBC 11.07 H (4.8-10.8) K/uL Hgb 11.9 L (12.0-16.0) g/dL Hct 36.2 L (37-47) % Plt Count 372 (130-400) K/uL BMP 10/28/20 06:46 Sodium 137 Potassium 4.6 Chloride 107 Carbon Dioxide 24 BUN 34 H Creatinine 1.15 Glucose 134 H Calcium 8.9 Medications Administered Current Inpatient Medications Acetaminophen (Acetaminophen 325 Mg Tab) 650 mg PO Q4H PRN PRN Reason: Pain or Fever Stop: 11/26/20 18:06 Albuterol (Albuterol Hfa 8 Gm Inhaler) 1 puffs INH Q4R PRN PRN Reason: Shortness Of Breath Stop: 11/26/20 18:06 Albuterol (Albuterol 0.083% Nebu Soln 3 Ml Vial) 2.5 mg NEB Q6R PRN PRN Reason: Shortness Of Breath Or Wheezing Stop: 11/26/20 18:15 Amlodipine Besylate (Amlodipine Besylate 5 Mg Tab) 2.5 mg PO DAILY [facility] Stop: 11/27/20 08:59 Last Admin: 10/28/20 08:39 Dose: 2.5 mg Documented by: Ascorbic Acid (Ascorbic Acid 500 Mg Tab) 500 mg PO DAILY [facility] Stop: 11/27/20 08:59 Last Admin: 10/28/20 08:41 Dose: 500 mg Documented by: Aspirin (Aspirin 81 Mg Ectab) 81 mg PO MoWeFr@0900 [facility] Stop: 11/27/20 08:59 Last Admin: 10/28/20 08:40 Dose: 81 mg Documented by: Baclofen (Baclofen 10 Mg Tab) 10 mg PO TID PRN PRN Reason: pain/spasm Stop: 11/26/20 18:06 Clonazepam (Clonazepam 0.5 Mg Tab) 0.5 mg PO HS PRN PRN Reason: Anxiety Stop: 11/26/20 18:06 Enoxaparin Sodium (Enoxaparin Inj 40 Mg/0.4 Ml Syr) 40 mg SQ Q24H [facility] Stop: 11/26/20 18:59 Last Admin: 10/27/20 21:33 Dose: 40 mg Documented by: Gabapentin (Gabapentin 300 Mg Cap) 300 mg PO BID@0900,1200 [facility] Stop: 11/27/20 08:59 Last Admin: 10/28/20 12:26 Dose: 300 mg Documented by: Gabapentin (Gabapentin 600 Mg Tab) 600 mg PO HS [facility] Stop: 11/26/20 20:59 Last Admin: 10/27/20 21:55 Dose: 600 mg Documented by: Hydrochlorothiazide (Hydrochlorothiazide 25 Mg Tab) 25 mg PO MoWeFr@0900 [facility] Stop: 11/28/20 08:59 Dexamethasone 6 mg/ Syringe 1.5 mls @ 1 mls/min IV Q24H [facility] Stop: 11/27/20 08:59 Last Admin: 10/28/20 08:39 Dose: 1 mls/min Documented by: Piperacillin Sod/Tazobactam (Sod 3.375 gm/ Dextrose) 115 mls @ 28.75 mls/hr IV Q8H [facility]; Protocol Stop: 10/29/20 20:59 Last Infusion: 10/28/20 16:28 Dose: Infused Documented by: Isosorbide Mononitrate (Isosorbide [place] Extended Rel 30 Mg Tabcr) 30 mg PO DAILY [facility] Stop: 11/27/20 08:59 Last Admin: 10/28/20 08:40 Dose: 30 mg Documented by: Lactobacillus Acidophilus (Lactobacillus Acidophilus 1 Gm Pack) 1 gm PO TIDM [facility] Stop: 11/27/20 07:59 Last Admin: 10/28/20 16:36 Dose: 1 gm Documented by: Losartan Potassium (Losartan Potassium 50 Mg Tab) 50 mg PO DAILY [facility] Stop: 11/27/20 08:59 Melatonin (Melatonin 3 Mg Tab) 3 mg PO HSZ PRN PRN Reason: Sleep Stop: 11/26/20 18:14 Metoprolol Succinate (Metoprolol Succ 25mg Ext Rel Tab) 37.5 mg PO QAM [facility] Stop: 11/27/20 08:59 Last Admin: 10/28/20 08:42 Dose: Not Given Documented by: Metoprolol Succinate (Metoprolol Succ 25mg Ext Rel Tab) 25 mg PO HS [facility] Stop: 11/26/20 20:59 Last Admin: 10/27/20 21:55 Dose: Not Given Documented by: Miscellaneous Information (Piperacill/Tazobac Consult Active) 1 ea N/A UD PRN PRN Reason: Consult Stop: 11/26/20 14:44 Ondansetron HCl (Ondansetron Inj 2 Mg/Ml 2 Ml Vial) 4 mg IV Q6H PRN PRN Reason: Nausea Stop: 11/26/20 18:06 Pantoprazole Sodium (Pantoprazole 40 Mg Tab) 40 mg PO QAM [facility]; Protocol Stop: 11/27/20 08:59 Last Admin: 10/28/20 08:39 Dose: 40 mg Documented by: Polyethylene Glycol (Polyethylene (Miralax) 17 Gm Pack) 17 gm PO DAILY PRN PRN Reason: Constipation Stop: 11/26/20 18:06 Rosuvastatin Calcium (Rosuvastatin Calcium 20 Mg Tab) 40 mg PO QPM [facility] Stop: 11/26/20 20:59 Last Admin: 10/27/20 21:56 Dose: 40 mg Documented by: Simethicone (Simethicone 80 Mg Chew) 80 mg PO BID PRN; Protocol PRN Reason: GAS Stop: 11/26/20 18:19 Zolpidem Tartrate (Zolpidem Tartrate 5 Mg Tab) 5 mg PO HS PRN PRN Reason: Sleep Stop: 11/26/20 18:06 Last Admin: 10/27/20 21:55 Dose: 5 mg Documented by: (1) Rheumatoid arthritis Rheumatoid arthritis location: unspecified site Rheumatoid factor presence: unspecified presence Qualified Code(s): M06.9 - Rheumatoid arthritis, unspecified
[2020-10-28] MEDS: ZOLPIDEM TARTRATE 5 MG TAB PO PRN (20:53)
[2020-10-28] MEDS: GABAPENTIN 600 MG TAB PO SCH (20:53)
[2020-10-28] MEDS: ENOXAPARIN INJ 40 MG/0.4 ML SYR SQ SCH (20:53)
[2020-10-28] MEDS: ROSUVASTATIN CALCIUM 20 MG TAB PO SCH (20:54)
[2020-10-29] MEDS: PIPERACILLIN/TAZOBACTAM 3.375 GM in DEXTROSE 5% 100 ML IV SCH ×2 (05:33→13:51)
[2020-10-29 07:06] LABS: Hematocrit (blood only) 33.5 % (37-47); Hemoglobin 11.5 g/dL (12.0-16.0); Mean Corpuscular Hemoglobin 32.3 pg (25-34); Mean Corpuscular Hgb Conc 34.3 g/dL (32-36); Mean Corpuscular Volume 94.1 fL (80-100); Mean Platelet Volume 9.5 fL (7.4-10.4); Platelet Count 375 K/uL (130-400); RDW Coefficient of Variation 14.1 % (11.5-14.5); RDW Standard Deviation 48.6 fL (36.4-46.3); Red Blood Count 3.56 M/uL (4.2-5.4); White Blood Count 13.48 K/uL (4.8-10.8)
[2020-10-29 07:35] LABS: BUN Creatinine Ratio 29.3 (10-20); Calcium 8.5 mg/dl (8.5-10.1); Creatinine Clr Calc Pharmacy 32.5 ml/min; Est GFR (African American) 45.3 ml/min; Est GFR (Non-African American) 39.1 ml/min; Magnesium 2.6 mg/dl (1.8-2.4); Phosphorus 4.2 mg/dl (2.5-4.9); Potassium 3.7 mmol/L (3.5-5.1)
[2020-10-29 08:29] LABS: Basophils # (auto) 0.02 K/uL (0-0.2); Basophils % (auto) 0.1 %; Eosinophils # (auto) 0.01 K/uL (0-0.5); Eosinophils % (auto) 0.1 %; Immature Granulocytes # (auto) 0.79 K/uL (0.00-0.02); Immature Granulocytes % (auto) 5.9 %; Lymphocytes # (auto) 0.92 K/uL (1.2-3.4); Lymphocytes % (auto) 6.8 %; Monocytes # (auto) 0.38 K/uL (0.11-0.59); Monocytes % (auto) 2.8 %; Neutrophils # (auto) 11.36 K/uL (1.4-6.5); Neutrophils % (auto) 84.3 %; RBC Morphology Unremarkable
[2020-10-29] MEDS: METOPROLOL SUCC 25MG EXT REL TAB PO SCH ×3 (08:40→20:44)
[2020-10-29] MEDS: ISOSORBIDE MONO EXTENDED REL 30 MG TABCR PO SCH (08:41)
[2020-10-29] MEDS: amLODIPine BESYLATE 5 MG TAB PO SCH (08:41)
[2020-10-29] MEDS: LACTOBACILLUS ACIDOPHILUS 1 GM PACK PO SCH ×3 (08:43→17:26)
[2020-10-29] MEDS: ASCORBIC ACID 500 MG TAB PO SCH (08:43)
[2020-10-29] MEDS: PANTOprazole 40 MG TAB PO SCH (08:43)
[2020-10-29] MEDS: hydroCHLOROthiazide 25 MG TAB PO SCH (08:43)
[2020-10-29] MEDS: dexAMETHasone 6 MG in SYRINGE 0 ML IV SCH (08:44)
[2020-10-29] MEDS: GABAPENTIN 300 MG CAP PO SCH ×2 (08:44→13:08)
[2020-10-29] MEDS ORDERED: FUROSEMIDE 40 MG in SYRINGE 0 ML IV ONE (11:19)
[2020-10-29] MEDS ORDERED: FUROSEMIDE 40 MG/4 ML VIAL IV ONE (11:30)
--- NOTE | 2020-10-29 13:33 | Hospitalist Progress Note ---
Date of Service October 29, 2020 Assessment & Plan (1) Acute respiratory failure with hypoxia: (2) Multifocal pneumonia: (3) Rheumatoid arthritis: (4) SARS-CoV-2 positive: (5) Hypertension: (6) CAD (coronary artery disease): Plan: This is a 85-year-old female with PMH of rheumatoid arthritis on immunosuppressive therapy, CAD, HTN, HLD, AAA, history of nonsustained V. tach on event monitor, CKD stage III, lumbar spinal stenosis status post laminectomy, peripheral nerve stimulator secondary to fecal incontinence, polyneuropathy, recently covid positive on 10/17 who presents with worsening SOB and weakness x 5 days. Acute respiratory failure with hypoxia Hypoxic at 85% on room air, now 97% on 4 L NC In setting of recent Sars-COV 2 + test, multifocal PNA Continue supplemental O2 Clinically much better in relation to respiratory symptoms Has been requiring 2 L of oxygen to maintain saturation Extreme fatigability Secondary to COVID-19 infection Will ask PT and OT evaluation Multivitamins and zinc supplement started today Recent Sars-COV 2 + on 10/17/20 with respiratory sx - covid test from today is pending Known exposure 2 weeks prior with partially vaccinated daughter Patient is fully vaccinated Recently admitted 10/17-10/20, completed PO course of Dexamethasone Symptoms recurred 5 days ago - SOB, weakness, fatigue, dry cough, diarrhea Resume dexamethasone 6 mg IV daily Out of window for Remdesivir therapy Covid isolation precautions Remains moderate shortness of breath at rest with cough Will give Lasix 40 mg intravenously x1 to keep her on the dry side Symptoms of Covid have been improving and will not give any more Lasix Multifocal PNA CXR with nterval development of bibasilar and left midlung predominant airspace opacities congestive of multifocal pneumonia Likely viral etiology but cannot exclude secondary bacterial infection Continue empiric Zosyn Follow blood cultures PRN duonebs, incentive spirometry, mucinex She has been on Zosyn which will cover pneumonia and UTI Will DC Zosyn and start oral doxycycline to cover atypicals Diarrhea In setting of viral infection C diff, stool cultures pending Received IV fluids in ER Urinary tract infection Abnormal UA - urine cx pending Receiving empiric Zosyn Urine culture is growing E. coli which is pansensitive We will change antibiotic to oral Keflex CAD HTN HLD Follows with [facility] Continue asa, coreg, imdur, crestor, losartan, metoprolol On amlodipine and hctz for HTN - hold HCTZ tomorrow due to dry clinical status and reassess Patient has LINQ monitor in place due to prior hx of syncope and NSVT CKD III Variable Cr baseline from 0.8-1.1 Creatinine 1.22 today Gentle IVF x 1 L Repeat BMP in AM Rheumatoid Arthritis Holding Xeljanz Resume when able Chronic polyneuropathy Continue gabapentin DVT ppx: Lovenox 40mg SQ Q24 Code status: FULL PCP: Libertad Stein Dispo: Admitted to PCU. Discharge planning ordered Admission and Anticipated Discharge Date Admission Date: October 27, 2020 Subjective 10/28/2020 The patient was seen and examined in telemetry unit She is status post COVID-19 infection on 10/17 with full treatment with remdesivir and dexamethasone She is back with increasing shortness of breath and fatigue Covid 19 infection remains positive with chest x-ray showing bibasilar patchy multilobar infiltration Has been complaining of extremely weakness and tiredness 10/29/20 The patient was seen and examined in telemetry unit and in the Covid room Her respiratory status is better but remains extremely lethargic Denies any other symptoms Review of Systems Review of Systems: All systems reviewed and are unremarkable except as noted below Respiratory: Minimal shortness of breath at rest Musculoskeletal: General very weak and lethargic Physical Exam Physical Exam: Sitting on a chair without any acute distress Constitutional: well developed, well nourished and + ill appearing Eyes: PERRL, conjunctivae normal, anicteric sclerae ENMT: external ear and nose normal, oropharynx normal Neck: trachea midline, no thyromegaly Respiratory: + respiratory distress (Moderate respiratory distress at rest) and + cough (Minimal cough) Auscultation: + diminished lung sounds, + crackles and + wheezes Cardiovascular: Rate/Rhythm: regular rate and regular rhythm; not tachycardic Heart Sounds: normal S1 and normal S2; no murmur Gastrointestinal (Abdomen): normal bowel sounds, soft, nontender, no hepatosplenomegaly Musculoskeletal: No acute arthritis in any joint Neurologic: Alert, awake and oriented x3. Remains extremely weak and lethargic Lymphatic: no cervical or axillary lymphadenopathy Results & Data Results & Data ([facility]) Vital Signs (Past 12 Hours) Vital Signs Temp Pulse Pulse Resp BP Pulse Ox 10/29/20 11:06 36.4 C L 60 18 93/51 L 97 10/29/20 08:00 61 10/29/20 07:41 36.5 C 59 L 18 116/69 94 10/29/20 04:00 36.4 C L 59 L 19 126/77 96 Laboratory Results Short CBC 10/29/20 Range/Units 06:16 WBC 13.48 H (4.8-10.8) K/uL Hgb 11.5 L (12.0-16.0) g/dL Hct 33.5 L (37-47) % Plt Count 375 (130-400) K/uL BMP 10/29/20 06:16 Sodium 136 Potassium 3.7 D Chloride 103 Carbon Dioxide 26 BUN 37 H Creatinine 1.26 H Glucose 140 H Calcium 8.5 Medications Administered Current Inpatient Medications Acetaminophen (Acetaminophen 325 Mg Tab) 650 mg PO Q4H PRN PRN Reason: Pain or Fever Stop: 11/26/20 18:06 Albuterol (Albuterol Hfa 8 Gm Inhaler) 1 puffs INH Q4R PRN PRN Reason: Shortness Of Breath Stop: 11/26/20 18:06 Albuterol (Albuterol 0.083% Nebu Soln 3 Ml Vial) 2.5 mg NEB Q6R PRN PRN Reason: Shortness Of Breath Or Wheezing Stop: 11/26/20 18:15 Amlodipine Besylate (Amlodipine Besylate 5 Mg Tab) 2.5 mg PO DAILY [facility] Stop: 11/27/20 08:59 Last Admin: 10/29/20 08:41 Dose: 2.5 mg Documented by: Ascorbic Acid (Ascorbic Acid 500 Mg Tab) 500 mg PO DAILY [facility] Stop: 11/27/20 08:59 Last Admin: 10/29/20 08:43 Dose: 500 mg Documented by: Aspirin (Aspirin 81 Mg Ectab) 81 mg PO MoWeFr@0900 [facility] Stop: 11/27/20 08:59 Last Admin: 10/28/20 08:40 Dose: 81 mg Documented by: Baclofen (Baclofen 10 Mg Tab) 10 mg PO TID PRN PRN Reason: pain/spasm Stop: 11/26/20 18:06 Clonazepam (Clonazepam 0.5 Mg Tab) 0.5 mg PO HS PRN PRN Reason: Anxiety Stop: 11/26/20 18:06 Enoxaparin Sodium (Enoxaparin Inj 40 Mg/0.4 Ml Syr) 40 mg SQ Q24H [facility] Stop: 11/26/20 18:59 Last Admin: 10/28/20 20:53 Dose: 40 mg Documented by: Gabapentin (Gabapentin 300 Mg Cap) 300 mg PO BID@0900,1200 [facility] Stop: 11/27/20 08:59 Last Admin: 10/29/20 13:08 Dose: 300 mg Documented by: Gabapentin (Gabapentin 600 Mg Tab) 600 mg PO HS [facility] Stop: 11/26/20 20:59 Last Admin: 10/28/20 20:53 Dose: 600 mg Documented by: Hydrochlorothiazide (Hydrochlorothiazide 25 Mg Tab) 25 mg PO MoWeFr@0900 [facility] Stop: 11/28/20 08:59 Last Admin: 10/29/20 08:43 Dose: 25 mg Documented by: Dexamethasone 6 mg/ Syringe 1.5 mls @ 1 mls/min IV Q24H [facility] Stop: 11/27/20 08:59 Last Admin: 10/29/20 08:44 Dose: 1 mls/min Documented by: Piperacillin Sod/Tazobactam (Sod 3.375 gm/ Dextrose) 115 mls @ 28.75 mls/hr IV Q8H [facility]; Protocol Stop: 10/29/20 20:59 Last Infusion: 10/29/20 09:33 Dose: Infused Documented by: Isosorbide Mononitrate (Isosorbide [place] Extended Rel 30 Mg Tabcr) 30 mg PO DAILY [facility] Stop: 11/27/20 08:59 Last Admin: 10/29/20 08:41 Dose: 30 mg Documented by: Lactobacillus Acidophilus (Lactobacillus Acidophilus 1 Gm Pack) 1 gm PO TIDM [facility] Stop: 11/27/20 07:59 Last Admin: 10/29/20 13:08 Dose: 1 gm Documented by: Losartan Potassium (Losartan Potassium 50 Mg Tab) 50 mg PO DAILY [facility] Stop: 11/27/20 08:59 Melatonin (Melatonin 3 Mg Tab) 3 mg PO HSZ PRN PRN Reason: Sleep Stop: 11/26/20 18:14 Metoprolol Succinate (Metoprolol Succ 25mg Ext Rel Tab) 37.5 mg PO QAM [facility] Stop: 11/27/20 08:59 Last Admin: 10/29/20 08:53 Dose: 37.5 mg Documented by: Metoprolol Succinate (Metoprolol Succ 25mg Ext Rel Tab) 25 mg PO HS [facility] Stop: 11/26/20 20:59 Last Admin: 10/28/20 20:55 Dose: Not Given Documented by: Miscellaneous Information (Piperacill/Tazobac Consult Active) 1 ea N/A UD PRN PRN Reason: Consult Stop: 11/26/20 14:44 Multivitamins/Minerals (Cerovite Adv Formula Tab) 1 tab PO QAM [facility] Stop: 11/28/20 12:29 Ondansetron HCl (Ondansetron Inj 2 Mg/Ml 2 Ml Vial) 4 mg IV Q6H PRN PRN Reason: Nausea Stop: 11/26/20 18:06 Pantoprazole Sodium (Pantoprazole 40 Mg Tab) 40 mg PO QAM [facility]; Protocol Stop: 11/27/20 08:59 Last Admin: 10/29/20 08:43 Dose: 40 mg Documented by: Polyethylene Glycol (Polyethylene (Miralax) 17 Gm Pack) 17 gm PO DAILY PRN PRN Reason: Constipation Stop: 11/26/20 18:06 Rosuvastatin Calcium (Rosuvastatin Calcium 20 Mg Tab) 40 mg PO QPM [facility] Stop: 11/26/20 20:59 Last Admin: 10/28/20 20:54 Dose: 40 mg Documented by: Simethicone (Simethicone 80 Mg Chew) 80 mg PO BID PRN; Protocol PRN Reason: GAS Stop: 11/26/20 18:19 Zinc Sulfate (Zinc Sulfate 220 Mg Capsule) 220 mg PO QAM [facility] Stop: 11/28/20 12:29 Zolpidem Tartrate (Zolpidem Tartrate 5 Mg Tab) 5 mg PO HS PRN PRN Reason: Sleep Stop: 11/26/20 18:06 Last Admin: 10/28/20 20:53 Dose: 5 mg Documented by: (1) Rheumatoid arthritis Rheumatoid arthritis location: unspecified site Rheumatoid factor presence: unspecified presence Qualified Code(s): M06.9 - Rheumatoid arthritis, unspecified
[2020-10-29] MEDS: CEROVITE ADV FORMULA TAB PO SCH (13:58)
[2020-10-29] MEDS: ZINC SULFATE 220 MG CAPSULE PO SCH (14:26)
[2020-10-29] MEDS: cephALEXin 500 MG CAP PO SCH (17:26)
[2020-10-29] MEDS: clonazePAM 0.5 MG TAB PO PRN (20:49)
[2020-10-29] MEDS: ENOXAPARIN INJ 40 MG/0.4 ML SYR SQ SCH (20:50)
[2020-10-29] MEDS: ROSUVASTATIN CALCIUM 20 MG TAB PO SCH (20:50)
[2020-10-29] MEDS: GABAPENTIN 600 MG TAB PO SCH (20:50)
[2020-10-30] MEDS: ACETAMINOPHEN 325 MG TAB PO PRN ×2 (00:35→17:20)
[2020-10-30] MEDS: dexAMETHasone 6 MG in SYRINGE 0 ML IV SCH (07:30)
[2020-10-30] MEDS: LACTOBACILLUS ACIDOPHILUS 1 GM PACK PO SCH ×3 (07:31→17:16)
[2020-10-30] MEDS: CEROVITE ADV FORMULA TAB PO SCH (07:31)
[2020-10-30] MEDS: cephALEXin 500 MG CAP PO SCH ×2 (07:31→20:51)
[2020-10-30] MEDS: ZINC SULFATE 220 MG CAPSULE PO SCH (07:31)
[2020-10-30] MEDS: ISOSORBIDE MONO EXTENDED REL 30 MG TABCR PO SCH (07:32)
[2020-10-30] MEDS: GABAPENTIN 300 MG CAP PO SCH ×2 (07:33→12:18)
[2020-10-30] MEDS: amLODIPine BESYLATE 5 MG TAB PO SCH (07:33)
[2020-10-30] MEDS: PANTOprazole 40 MG TAB PO SCH (07:33)
[2020-10-30] MEDS: ASCORBIC ACID 500 MG TAB PO SCH (07:34)
[2020-10-30] MEDS: METOPROLOL SUCC 25MG EXT REL TAB PO SCH ×2 (07:34→20:54)
--- NOTE | 2020-10-30 14:33 | Hospitalist Progress Note ---
Date of Service October 30, 2020 Assessment & Plan (1) Acute respiratory failure with hypoxia: (2) Multifocal pneumonia: (3) Rheumatoid arthritis: (4) SARS-CoV-2 positive: (5) Hypertension: (6) CAD (coronary artery disease): Plan: This is a 85-year-old female with PMH of rheumatoid arthritis on immunosuppressive therapy, CAD, HTN, HLD, AAA, history of nonsustained V. tach on event monitor, CKD stage III, lumbar spinal stenosis status post laminectomy, peripheral nerve stimulator secondary to fecal incontinence, polyneuropathy, recently covid positive on 10/17 who presents with worsening SOB and weakness x 5 days. Acute respiratory failure with hypoxia Hypoxic at 85% on room air, now 97% on 4 L NC In setting of recent Sars-COV 2 + test, multifocal PNA Continue supplemental O2 Clinically much better in relation to respiratory symptoms Has been requiring 1 L nasal cannula oxygen to maintain saturation Extreme fatigability Secondary to COVID-19 infection Will ask PT and OT evaluation Multivitamins and zinc supplement started today Not much improvement in her fatigability We will get PT and OT evaluation tomorrow Recent Sars-COV 2 + on 10/17/20 with respiratory sx - covid test from today is pending Known exposure 2 weeks prior with partially vaccinated daughter Patient is fully vaccinated Recently admitted 10/17-10/20, completed PO course of Dexamethasone Symptoms recurred 5 days ago - SOB, weakness, fatigue, dry cough, diarrhea Resume dexamethasone 6 mg IV daily Out of window for Remdesivir therapy Covid isolation precautions Remains moderate shortness of breath at rest with cough Will give Lasix 40 mg intravenously x1 to keep her on the dry side Symptoms of Covid have been improving and will not give any more Lasix As above Multifocal PNA CXR with nterval development of bibasilar and left midlung predominant airspace opacities congestive of multifocal pneumonia Likely viral etiology but cannot exclude secondary bacterial infection Continue empiric Zosyn Follow blood cultures PRN duonebs, incentive spirometry, mucinex She has been on Zosyn which will cover pneumonia and UTI Will DC Zosyn and start oral doxycycline to cover atypicals We will get chest x-ray tomorrow to evaluate pneumonia Diarrhea In setting of viral infection C diff, stool cultures pending Received IV fluids in ER Urinary tract infection Abnormal UA - urine cx pending Receiving empiric Zosyn Urine culture is growing E. coli which is pansensitive We will change antibiotic to oral Keflex CAD HTN HLD Follows with [facility] Continue asa, coreg, imdur, crestor, losartan, metoprolol On amlodipine and hctz for HTN - hold HCTZ tomorrow due to dry clinical status and reassess Patient has LINQ monitor in place due to prior hx of syncope and NSVT CKD III Variable Cr baseline from 0.8-1.1 Creatinine 1.22 today Gentle IVF x 1 L Repeat BMP in AM Rheumatoid Arthritis Holding Xeljanz Resume when able Chronic polyneuropathy Continue gabapentin DVT ppx: Lovenox 40mg SQ Q24 Code status: FULL PCP: Libertad Stein Dispo: Admitted to PCU. Discharge planning ordered Admission and Anticipated Discharge Date Admission Date: October 27, 2020 Subjective 10/28/2020 The patient was seen and examined in telemetry unit She is status post COVID-19 infection on 10/17 with full treatment with remdesivir and dexamethasone She is back with increasing shortness of breath and fatigue Covid 19 infection remains positive with chest x-ray showing bibasilar patchy multilobar infiltration Has been complaining of extremely weakness and tiredness 10/29/20 The patient was seen and examined in telemetry unit and in the Covid room Her respiratory status is better but remains extremely lethargic Denies any other symptoms 10/30/2020 The patient was seen and examined in telemetry unit and in the Covid room She remains extremely lethargic but oxygen requirements has gone down to 1 L/min via nasal cannula to maintain saturation Denies any other significant symptoms Review of Systems Review of Systems: All systems reviewed and are unremarkable except as noted below Respiratory: Minimal shortness of breath at rest Musculoskeletal: General very weak and lethargic Physical Exam Physical Exam: Sitting on a chair without any acute distress Constitutional: well developed, well nourished and + ill appearing Eyes: PERRL, conjunctivae normal, anicteric sclerae ENMT: external ear and nose normal, oropharynx normal Neck: trachea midline, no thyromegaly Respiratory: + respiratory distress (Moderate respiratory distress at rest) and + cough (Minimal cough) Auscultation: + diminished lung sounds, + crackles and + wheezes Cardiovascular: Rate/Rhythm: regular rate and regular rhythm; not tachycardic Heart Sounds: normal S1 and normal S2; no murmur Gastrointestinal (Abdomen): normal bowel sounds, soft, nontender, no hepatosplenomegaly Musculoskeletal: No acute arthritis in any joint Neurologic: Alert, awake and oriented x3. Generally very weak and lethargic Lymphatic: no cervical or axillary lymphadenopathy Results & Data Results & Data ([facility]) Vital Signs (Past 12 Hours) Vital Signs Temp Pulse Pulse Pulse Resp BP Pulse Ox 10/30/20 11:47 36.4 C L 74 20 105/54 L 94 10/30/20 08:00 50 L 10/30/20 07:34 36.5 C 64 18 106/53 L 93 10/30/20 04:00 36.8 C 63 18 135/69 92 Medications Administered Current Inpatient Medications Acetaminophen (Acetaminophen 325 Mg Tab) 650 mg PO Q4H PRN PRN Reason: Pain or Fever Stop: 11/26/20 18:06 Last Admin: 10/30/20 00:35 Dose: 650 mg Documented by: Albuterol (Albuterol Hfa 8 Gm Inhaler) 1 puffs INH Q4R PRN PRN Reason: Shortness Of Breath Stop: 11/26/20 18:06 Albuterol (Albuterol 0.083% Nebu Soln 3 Ml Vial) 2.5 mg NEB Q6R PRN PRN Reason: Shortness Of Breath Or Wheezing Stop: 11/26/20 18:15 Amlodipine Besylate (Amlodipine Besylate 5 Mg Tab) 2.5 mg PO DAILY [facility] OF [facility] Stop: 11/27/20 08:59 Last Admin: 10/30/20 07:33 Dose: 2.5 mg Documented by: Ascorbic Acid (Ascorbic Acid 500 Mg Tab) 500 mg PO DAILY [facility] Stop: 11/27/20 08:59 Last Admin: 10/30/20 07:34 Dose: 500 mg Documented by: Aspirin (Aspirin 81 Mg Ectab) 81 mg PO MoWeFr@0900 ON [facility] Stop: 11/27/20 08:59 Last Admin: 10/28/20 08:40 Dose: 81 mg Documented by: Baclofen (Baclofen 10 Mg Tab) 10 mg PO TID PRN PRN Reason: pain/spasm Stop: 11/26/20 18:06 Cephalexin HCl (Cephalexin 500 Mg Cap) 500 mg PO BID [facility] Stop: 11/03/20 16:59 Last Admin: 10/30/20 07:31 Dose: 500 mg Documented by: Clonazepam (Clonazepam 0.5 Mg Tab) 0.5 mg PO HS PRN PRN Reason: Anxiety Stop: 11/26/20 18:06 Last Admin: 10/29/20 20:49 Dose: 0.5 mg Documented by: Enoxaparin Sodium (Enoxaparin Inj 40 Mg/0.4 Ml Syr) 40 mg SQ Q24H [facility] Stop: 11/26/20 18:59 Last Admin: 10/29/20 20:50 Dose: 40 mg Documented by: Gabapentin (Gabapentin 300 Mg Cap) 300 mg PO BID@0900,1200 [facility] Stop: 11/27/20 08:59 Last Admin: 10/30/20 12:18 Dose: 300 mg Documented by: Gabapentin (Gabapentin 600 Mg Tab) 600 mg PO HS [facility] Stop: 11/26/20 20:59 Last Admin: 10/29/20 20:50 Dose: 600 mg Documented by: Hydrochlorothiazide (Hydrochlorothiazide 25 Mg Tab) 25 mg PO MoWeFr@0900 [facility] Stop: 11/28/20 08:59 Last Admin: 10/29/20 08:43 Dose: 25 mg Documented by: Dexamethasone 6 mg/ Syringe 1.5 mls @ 1 mls/min IV Q24H ON [facility] OF [facility] Stop: 11/27/20 08:59 Last Admin: 10/30/20 07:30 Dose: 1 mls/min Documented by: Isosorbide Mononitrate (Isosorbide [place] Extended Rel 30 Mg Tabcr) 30 mg PO DAILY ON [facility] OF [facility] Stop: 11/27/20 08:59 Last Admin: 10/30/20 07:32 Dose: 30 mg Documented by: Lactobacillus Acidophilus (Lactobacillus Acidophilus 1 Gm Pack) 1 gm PO TIDM S Stop: 11/27/20 07:59 Last Admin: 10/30/20 12:18 Dose: 1 gm Documented by: Losartan Potassium (Losartan Potassium 50 Mg Tab) 50 mg PO DAILY [facility] Stop: 11/27/20 08:59 Melatonin (Melatonin 3 Mg Tab) 3 mg PO HSZ PRN PRN Reason: Sleep Stop: 11/26/20 18:14 Metoprolol Succinate (Metoprolol Succ 25mg Ext Rel Tab) 37.5 mg PO QAM [facility] Stop: 11/27/20 08:59 Last Admin: 10/30/20 07:34 Dose: Not Given Documented by: Metoprolol Succinate (Metoprolol Succ 25mg Ext Rel Tab) 25 mg PO HS [facility] Stop: 11/26/20 20:59 Last Admin: 10/29/20 20:44 Dose: Not Given Documented by: Multivitamins/Minerals (Cerovite Adv Formula Tab) [facility] Stop: 11/28/20 12:29 Last Admin: 10/30/20 07:31 Dose: 1 tab Documented by: Ondansetron HCl (Ondansetron Inj 2 Mg/Ml 2 Ml Vial) 4 mg IV Q6H PRN PRN Reason: Nausea Stop: 11/26/20 18:06 Pantoprazole Sodium (Pantoprazole 40 Mg Tab) 40 mg PO [facility]; Protocol Stop: 11/27/20 08:59 Last Admin: 10/30/20 07:33 Dose: 40 mg Documented by: Polyethylene Glycol (Polyethylene (Miralax) 17 Gm Pack) 17 gm PO DAILY PRN PRN Reason: Constipation Stop: 11/26/20 18:06 Rosuvastatin Calcium (Rosuvastatin Calcium 20 Mg Tab) 40 mg PO QPM [facility] Stop: 11/26/20 20:59 Last Admin: 10/29/20 20:50 Dose: 40 mg Documented by: Simethicone (Simethicone 80 Mg Chew) 80 mg PO BID PRN; Protocol PRN Reason: GAS Stop: 11/26/20 18:19 Zinc Sulfate (Zinc Sulfate 220 Mg Capsule) 220 mg PO [facility] Stop: 11/28/20 12:29 Last Admin: 10/30/20 07:31 Dose: 220 mg Documented by: Zolpidem Tartrate (Zolpidem Tartrate 5 Mg Tab) 5 mg PO HS PRN PRN Reason: Sleep Stop: 11/26/20 18:06 Last Admin: 10/28/20 20:53 Dose: 5 mg Documented by: (1) Rheumatoid arthritis Rheumatoid arthritis location: unspecified site Rheumatoid factor presence: unspecified presence Qualified Code(s): M06.9 - Rheumatoid arthritis, unspecified
[2020-10-30] MEDS: DOXYCYCLINE HYCLATE 100 MG CAP PO SCH (19:39)
[2020-10-30] MEDS: ENOXAPARIN INJ 40 MG/0.4 ML SYR SQ SCH (20:51)
[2020-10-30] MEDS: GABAPENTIN 600 MG TAB PO SCH (20:53)
[2020-10-30] MEDS: ROSUVASTATIN CALCIUM 20 MG TAB PO SCH (20:54)
[2020-10-30] MEDS: clonazePAM 0.5 MG TAB PO PRN (20:58)
[2020-10-31] MEDS: DOXYCYCLINE HYCLATE 100 MG CAP PO SCH ×2 (07:00→19:28)
--- NOTE | 2020-10-31 08:28 | XRay Report ---
XR chest 1V portable CLINICAL HISTORY: Covid pneumonia COMPARISON STUDY: Chest radiograph and chest CT October 27, 2020. FINDINGS: Incidental note is made of a right shoulder arthroplasty. Cardiomegaly is noted. There is n o pneumothorax or pleural effusion. There is no evidence for pulmonary edema. Moderate bilateral airs pace opacities are similar to prior chest CT and chest radiograph. The appearance of the chest is unc hanged. IMPRESSION: No significant change in bilateral airspace opacities consistent with viral pneumonia. ACT 112: Negative or not required by law. Electronically signed by: Freddy Rivera M.D. 10/31/2020 8:26 AM
[2020-10-31 09:46] LABS: Basophils # (auto) 0.01 K/uL (0-0.2); Basophils % (auto) 0.1 %; Eosinophils # (auto) 0.01 K/uL (0-0.5); Eosinophils % (auto) 0.1 %; Hemoglobin 12.2 g/dL (12.0-16.0); Immature Granulocytes # (auto) 0.28 K/uL (0.00-0.02); Immature Granulocytes % (auto) 2.1 %; Lymphocytes # (auto) 0.58 K/uL (1.2-3.4); Lymphocytes % (auto) 4.3 %; Mean Corpuscular Hemoglobin 31.5 pg (25-34); Mean Corpuscular Volume 95.6 fL (80-100); Mean Platelet Volume 9.1 fL (7.4-10.4); Monocytes # (auto) 0.63 K/uL (0.11-0.59); Monocytes % (auto) 4.7 %; Neutrophils # (auto) 11.88 K/uL (1.4-6.5); Neutrophils % (auto) 88.7 %; Nucleated RBC # (auto) 0.03 K/uL (0-0); Nucleated RBC % (auto) 0.3 %; Platelet Count 393 K/uL (130-400); RDW Coefficient of Variation 14.2 % (11.5-14.5); RDW Standard Deviation 49.4 fL (36.4-46.3); Red Blood Count 3.87 M/uL (4.2-5.4); White Blood Count 13.39 K/uL (4.8-10.8)
[2020-10-31 10:18] LABS: BUN Creatinine Ratio 35.3 (10-20); Calcium 9.1 mg/dl (8.5-10.1); Creatinine Clr Calc Pharmacy 46.2 ml/min; Est GFR (Non-African American) 59.5 ml/min; Magnesium 2.3 mg/dl (1.8-2.4); Phosphorus 2.8 mg/dl (2.5-4.9); Potassium 3.6 mmol/L (3.5-5.1)
[2020-10-31] MEDS: dexAMETHasone 6 MG in SYRINGE 0 ML IV SCH (10:23)
[2020-10-31] MEDS: PANTOprazole 40 MG TAB PO SCH (10:24)
[2020-10-31] MEDS: cephALEXin 500 MG CAP PO SCH ×2 (10:24→21:18)
[2020-10-31] MEDS: GABAPENTIN 300 MG CAP PO SCH ×2 (10:24→13:03)
[2020-10-31] MEDS: METOPROLOL SUCC 25MG EXT REL TAB PO SCH ×2 (10:25→21:18)
[2020-10-31] MEDS: LACTOBACILLUS ACIDOPHILUS 1 GM PACK PO SCH ×3 (10:25→16:53)
[2020-10-31] MEDS: ZINC SULFATE 220 MG CAPSULE PO SCH (10:26)
[2020-10-31] MEDS: amLODIPine BESYLATE 5 MG TAB PO SCH (10:26)
[2020-10-31] MEDS: ASCORBIC ACID 500 MG TAB PO SCH (10:26)
[2020-10-31] MEDS: ASPIRIN 81 MG ECTAB PO SCH (10:28)
[2020-10-31] MEDS: ISOSORBIDE MONO EXTENDED REL 30 MG TABCR PO SCH (10:28)
[2020-10-31] MEDS: hydroCHLOROthiazide 25 MG TAB PO SCH (10:29)
[2020-10-31] MEDS: CEROVITE ADV FORMULA TAB PO SCH (10:29)
--- NOTE | 2020-10-31 16:15 | Hospitalist Progress Note ---
Date of Service October 31, 2020 Assessment & Plan (1) Acute respiratory failure with hypoxia: (2) Multifocal pneumonia: (3) Rheumatoid arthritis: (4) SARS-CoV-2 positive: (5) Hypertension: (6) CAD (coronary artery disease): Plan: This is a 85-year-old female with PMH of rheumatoid arthritis on immunosuppressive therapy, CAD, HTN, HLD, AAA, history of nonsustained V. tach on event monitor, CKD stage III, lumbar spinal stenosis status post laminectomy, peripheral nerve stimulator secondary to fecal incontinence, polyneuropathy, recently covid positive on 10/17 who presents with worsening SOB and weakness x 5 days. Acute respiratory failure with hypoxia Hypoxic at 85% on room air, now 97% on 4 L NC In setting of recent Sars-COV 2 + test, multifocal PNA Continue supplemental O2 Clinically much better in relation to respiratory symptoms Has been requiring 1 L nasal cannula oxygen to maintain saturation Clinically much better still requiring oxygen to maintain saturation up to 1 to 2 L Extreme fatigability Secondary to COVID-19 infection Will ask PT and OT evaluation Multivitamins and zinc supplement started today Not much improvement in her fatigability Has been walking around in the hallway without much difficulty We will continue PT and OT for now Recent Sars-COV 2 + on 10/17/20 with respiratory sx - covid test from today is pending Known exposure 2 weeks prior with partially vaccinated daughter Patient is fully vaccinated Recently admitted 10/17-10/20, completed PO course of Dexamethasone Symptoms recurred 5 days ago - SOB, weakness, fatigue, dry cough, diarrhea Resume dexamethasone 6 mg IV daily Out of window for Remdesivir therapy Covid isolation precautions Remains moderate shortness of breath at rest with cough Will give Lasix 40 mg intravenously x1 to keep her on the dry side Symptoms of Covid have been improving and will not give any more Lasix Multifocal PNA CXR with nterval development of bibasilar and left midlung predominant airspace opacities congestive of multifocal pneumonia Likely viral etiology but cannot exclude secondary bacterial infection Continue empiric Zosyn Follow blood cultures PRN duonebs, incentive spirometry, mucinex She has been on Zosyn which will cover pneumonia and UTI Will DC Zosyn and start oral doxycycline to cover atypicals We will get chest x-ray tomorrow to evaluate pneumonia Chest x-ray is looking better but he still bilateral infiltration Diarrhea In setting of viral infection C diff, stool cultures pending Received IV fluids in ER Urinary tract infection Abnormal UA - urine cx pending Receiving empiric Zosyn Urine culture is growing E. coli which is pansensitive We will change antibiotic to oral Keflex CAD HTN HLD [facility] Continue asa, coreg, imdur, crestor, losartan, metoprolol On amlodipine and hctz for HTN - hold HCTZ tomorrow due to dry clinical status and reassess Patient has LINQ monitor in place due to prior hx of syncope and NSVT CKD III Variable Cr baseline from 0.8-1.1 Creatinine 1.22 today Gentle IVF x 1 L Repeat BMP in AM Rheumatoid Arthritis Holding Xeljanz Resume when able Chronic polyneuropathy Continue gabapentin DVT ppx: Lovenox 40mg SQ Q24 Code status: FULL PCP: Libertad Stein Dispo: Admitted to PCU. Discharge planning ordered Plan: Likely discharge home in a day or 2 Admission and Anticipated Discharge Date Admission Date: October 27, 2020 Subjective 10/28/2020 The patient was seen and examined in telemetry unit She is status post COVID-19 infection on 10/17 with full treatment with remdesivir and dexamethasone She is back with increasing shortness of breath and fatigue Covid 19 infection remains positive with chest x-ray showing bibasilar patchy multilobar infiltration Has been complaining of extremely weakness and tiredness 10/29/20 The patient was seen and examined in telemetry unit and in the Covid room Her respiratory status is better but remains extremely lethargic Denies any other symptoms 10/30/2020 The patient was seen and examined in telemetry unit and in the Covid room She remains extremely lethargic but oxygen requirements has gone down to 1 L/min via nasal cannula to maintain saturation Denies any other significant symptoms 10/31/2020 The patient was seen and examined in telemetry unit and in the Covid room She has been feeling a little better Denies any significant symptoms except weakness and tiredness Review of Systems Review of Systems: All systems reviewed and are unremarkable except as noted below Respiratory: Minimal shortness of breath at rest Musculoskeletal: General very weak and lethargic Physical Exam Physical Exam: Lying in the bed without any acute distress Constitutional: well developed, well nourished and + ill appearing Eyes: PERRL, conjunctivae normal, anicteric sclerae ENMT: external ear and nose normal, oropharynx normal Neck: trachea midline, no thyromegaly Respiratory: no respiratory distress (Moderate respiratory distress at rest) and no cough (Minimal cough) Auscultation: + diminished lung sounds, + crackles and + wheezes Cardiovascular: Rate/Rhythm: regular rate and regular rhythm; not tachycardic Heart Sounds: normal S1 and normal S2; no murmur Gastrointestinal (Abdomen): normal bowel sounds, soft, nontender, no hepatosplenomegaly Lymphatic: no cervical or axillary lymphadenopathy Results & Data Results & Data ([facility]) Vital Signs (Past 12 Hours) Vital Signs Temp Pulse Pulse Pulse Resp BP Pulse Ox 10/31/20 16:01 37.0 C 68 16 111/60 96 10/31/20 08:12 36.9 C 57 L 18 126/66 95 10/31/20 07:00 58 L 10/31/20 04:14 36.6 C 66 20 127/67 92 Laboratory Results Short CBC 10/31/20 Range/Units 09:12 WBC 13.39 H (4.8-10.8) K/uL Hgb 12.2 (12.0-16.0) g/dL Hct 37.0 (37-47) % Plt Count 393 (130-400) K/uL BMP 10/31/20 09:12 Sodium 140 Potassium 3.6 Chloride 104 Carbon Dioxide 29 BUN 32 H Creatinine 0.89 Glucose 137 H Calcium 9.1 Medications Administered Current Inpatient Medications Acetaminophen (Acetaminophen 325 Mg Tab) 650 mg PO Q4H PRN PRN Reason: Pain or Fever Stop: 11/26/20 18:06 Last Admin: 10/30/20 17:20 Dose: 650 mg Documented by: Albuterol (Albuterol Hfa 8 Gm Inhaler) 1 puffs INH Q4R PRN PRN Reason: Shortness Of Breath Stop: 11/26/20 18:06 Albuterol (Albuterol 0.083% Nebu Soln 3 Ml Vial) 2.5 mg NEB Q6R PRN PRN Reason: Shortness Of Breath Or Wheezing Stop: 11/26/20 18:15 Amlodipine Besylate (Amlodipine Besylate 5 Mg Tab) 2.5 mg PO DAILY [facility] Stop: 11/27/20 08:59 Last Admin: 10/31/20 10:26 Dose: 2.5 mg Documented by: Ascorbic Acid (Ascorbic Acid 500 Mg Tab) 500 mg PO DAILY [facility] Stop: 11/27/20 08:59 Last Admin: 10/31/20 10:26 Dose: 500 mg Documented by: Aspirin (Aspirin 81 Mg Ectab) 81 mg PO MoWeFr@0900 [facility] Stop: 11/27/20 08:59 Last Admin: 10/31/20 10:28 Dose: 81 mg Documented by: Baclofen (Baclofen 10 Mg Tab) 10 mg PO TID PRN PRN Reason: pain/spasm Stop: 11/26/20 18:06 Cephalexin HCl (Cephalexin 500 Mg Cap) 500 mg PO BID [facility]; Protocol Stop: 11/03/20 16:59 Last Admin: 10/31/20 10:24 Dose: 500 mg Documented by: Clonazepam (Clonazepam 0.5 Mg Tab) 0.5 mg PO HS PRN PRN Reason: Anxiety Stop: 11/26/20 18:06 Last Admin: 10/30/20 20:58 Dose: 0.5 mg Documented by: Doxycycline Hyclate (Doxycycline Hyclate 100 Mg Cap) 100 mg PO BID@0700,1900 [facility] Stop: 11/06/20 18:59 Last Admin: 10/31/20 07:00 Dose: 100 mg Documented by: Enoxaparin Sodium (Enoxaparin Inj 40 Mg/0.4 Ml Syr) 40 mg SQ Q24H [facility] Stop: 11/26/20 18:59 Last Admin: 10/30/20 20:51 Dose: 40 mg Documented by: Gabapentin (Gabapentin 300 Mg Cap) 300 mg PO BID@0900,1200 [facility] Stop: 11/27/20 08:59 Last Admin: 10/31/20 13:03 Dose: 300 mg Documented by: Gabapentin (Gabapentin 600 Mg Tab) 600 mg PO HS [facility] Stop: 11/26/20 20:59 Last Admin: 10/30/20 20:53 Dose: 600 mg Documented by: Hydrochlorothiazide (Hydrochlorothiazide 25 Mg Tab) 25 mg PO MoWeFr@0900 [facility] Stop: 11/28/20 08:59 Last Admin: 10/31/20 10:29 Dose: 25 mg Documented by: Dexamethasone 6 mg/ Syringe 1.5 mls @ 1 mls/min IV Q24H [facility] Stop: 11/27/20 08:59 Last Admin: 10/31/20 10:23 Dose: 1 mls/min Documented by: Isosorbide Mononitrate (Isosorbide [place] Extended Rel 30 Mg Tabcr) 30 mg PO DAILY [facility] Stop: 11/27/20 08:59 Last Admin: 10/31/20 10:28 Dose: 30 mg Documented by: Lactobacillus Acidophilus (Lactobacillus Acidophilus 1 Gm Pack) 1 gm PO TIDM [facility] Stop: 11/27/20 07:59 Last Admin: 10/31/20 13:03 Dose: 1 gm Documented by: Losartan Potassium (Losartan Potassium 50 Mg Tab) 50 mg PO DAILY [facility] Stop: 11/27/20 08:59 Melatonin (Melatonin 3 Mg Tab) 3 mg PO HSZ PRN PRN Reason: Sleep Stop: 11/26/20 18:14 Metoprolol Succinate (Metoprolol Succ 25mg Ext Rel Tab) 37.5 mg PO [facility] Stop: 11/27/20 08:59 Last Admin: 10/31/20 10:25 Dose: Not Given Documented by: Metoprolol Succinate (Metoprolol Succ 25mg Ext Rel Tab) 25 mg PO HS [facility] Stop: 11/26/20 20:59 Last Admin: 10/30/20 20:54 Dose: 25 mg Documented by: Multivitamins/Minerals (Cerovite Adv Formula Tab) 1 tab PO [facility] Stop: 11/28/20 12:29 Last Admin: 10/31/20 10:29 Dose: 1 tab Documented by: Ondansetron HCl (Ondansetron Inj 2 Mg/Ml 2 Ml Vial) 4 mg IV Q6H PRN PRN Reason: Nausea Stop: 11/26/20 18:06 Pantoprazole Sodium (Pantoprazole 40 Mg Tab) 40 mg PO [facility]; Protocol Stop: 11/27/20 08:59 Last Admin: 10/31/20 10:24 Dose: 40 mg Documented by: Polyethylene Glycol (Polyethylene (Miralax) 17 Gm Pack) 17 gm PO DAILY PRN PRN Reason: Constipation Stop: 11/26/20 18:06 Rosuvastatin Calcium (Rosuvastatin Calcium 20 Mg Tab) 40 mg PO QPM [facility] Stop: 11/26/20 20:59 Last Admin: 10/30/20 20:54 Dose: 40 mg Documented by: Simethicone (Simethicone 80 Mg Chew) 80 mg PO BID PRN; Protocol PRN Reason: GAS Stop: 11/26/20 18:19 Zinc Sulfate (Zinc Sulfate 220 Mg Capsule) 220 mg PO QAM [facility] Stop: 11/28/20 12:29 Last Admin: 10/31/20 10:26 Dose: 220 mg Documented by: Zolpidem Tartrate (Zolpidem Tartrate 5 Mg Tab) 5 mg PO HS PRN PRN Reason: Sleep Stop: 11/26/20 18:06 Last Admin: 10/28/20 20:53 Dose: 5 mg Documented by: (1) Rheumatoid arthritis Rheumatoid arthritis location: unspecified site Rheumatoid factor presence: unspecified presence Qualified Code(s): M06.9 - Rheumatoid arthritis, unspecified
[2020-10-31] MEDS: GABAPENTIN 600 MG TAB PO SCH (21:17)
[2020-10-31] MEDS: ROSUVASTATIN CALCIUM 20 MG TAB PO SCH (21:18)
[2020-10-31] MEDS: ZOLPIDEM TARTRATE 5 MG TAB PO PRN (21:18)
[2020-10-31] MEDS: ENOXAPARIN INJ 40 MG/0.4 ML SYR SQ SCH (21:19)
[2020-11-01] MEDS: DOXYCYCLINE HYCLATE 100 MG CAP PO SCH ×2 (06:39→18:31)
[2020-11-01 07:38] LABS: BUN Creatinine Ratio 27.8 (10-20); Creatinine Clr Calc Pharmacy 39.5 ml/min; Est GFR (African American) 57.1 ml/min; Est GFR (Non-African American) 49.3 ml/min; Phosphorus 3.3 mg/dl (2.5-4.9)
[2020-11-01 07:42] LABS: Magnesium 2.7 mg/dl (1.8-2.4); Potassium 4.2 mmol/L (3.5-5.1)
[2020-11-01] MEDS: ISOSORBIDE MONO EXTENDED REL 30 MG TABCR PO SCH (09:15)
[2020-11-01] MEDS: GABAPENTIN 300 MG CAP PO SCH ×2 (09:15→12:42)
[2020-11-01] MEDS: LACTOBACILLUS ACIDOPHILUS 1 GM PACK PO SCH ×3 (09:15→17:17)
[2020-11-01] MEDS: amLODIPine BESYLATE 5 MG TAB PO SCH (09:16)
[2020-11-01] MEDS: CEROVITE ADV FORMULA TAB PO SCH (09:16)
[2020-11-01] MEDS: METOPROLOL SUCC 25MG EXT REL TAB PO SCH ×2 (09:17→20:18)
[2020-11-01] MEDS: ASCORBIC ACID 500 MG TAB PO SCH (09:18)
[2020-11-01] MEDS: ZINC SULFATE 220 MG CAPSULE PO SCH (09:19)
[2020-11-01] MEDS: PANTOprazole 40 MG TAB PO SCH (09:19)
[2020-11-01] MEDS: dexAMETHasone 6 MG in SYRINGE 0 ML IV SCH (09:20)
[2020-11-01] MEDS: cephALEXin 500 MG CAP PO SCH ×2 (10:12→20:17)
--- NOTE | 2020-11-01 16:11 | Hospitalist Progress Note ---
Date of Service November 01, 2020 Assessment & Plan (1) Acute respiratory failure with hypoxia: (2) Multifocal pneumonia: (3) Rheumatoid arthritis: (4) SARS-CoV-2 positive: (5) Hypertension: (6) CAD (coronary artery disease): Plan: This is a 85-year-old female with PMH of rheumatoid arthritis on immunosuppressive therapy, CAD, HTN, HLD, AAA, history of nonsustained V. tach on event monitor, CKD stage III, lumbar spinal stenosis status post laminectomy, peripheral nerve stimulator secondary to fecal incontinence, polyneuropathy, recently covid positive on 10/17 who presents with worsening SOB and weakness x 5 days. Acute respiratory failure with hypoxia Hypoxic at 85% on room air, now 97% on 4 L NC In setting of recent Sars-COV 2 + test, multifocal PNA Continue supplemental O2 Clinically much better in relation to respiratory symptoms Has been requiring 1 L nasal cannula oxygen to maintain saturation Clinically much better still requiring oxygen to maintain saturation up to 1 to 2 L Getting better gradually Extreme fatigability Secondary to COVID-19 infection Will ask PT and OT evaluation Multivitamins and zinc supplement started today Not much improvement in her fatigability Has been walking around in the hallway without much difficulty Has been walking around the hallway with a walker and with the nurse Recent Sars-COV 2 + on 10/17/20 with respiratory sx - covid test from today is pending Known exposure 2 weeks prior with partially vaccinated daughter Patient is fully vaccinated Recently admitted 10/17-10/20, completed PO course of Dexamethasone Symptoms recurred 5 days ago - SOB, weakness, fatigue, dry cough, diarrhea Resume dexamethasone 6 mg IV daily Out of window for Remdesivir therapy Covid isolation precautions Remains moderate shortness of breath at rest with cough Will give Lasix 40 mg intravenously x1 to keep her on the dry side Symptoms of Covid have been improving and will not give any more Lasix Once we better as she does not want to come back Multifocal PNA CXR with nterval development of bibasilar and left midlung predominant airspace opacities congestive of multifocal pneumonia Likely viral etiology but cannot exclude secondary bacterial infection Continue empiric Zosyn Follow blood cultures PRN duonebs, incentive spirometry, mucinex She has been on Zosyn which will cover pneumonia and UTI Will DC Zosyn and start oral doxycycline to cover atypicals We will get chest x-ray tomorrow to evaluate pneumonia Chest x-ray is looking better but he still bilateral infiltration We will continue current antibiotic and finish the course of 7 to 10 days Diarrhea In setting of viral infection C diff, stool cultures pending Received IV fluids in ER Urinary tract infection Abnormal UA - urine cx pending Receiving empiric Zosyn Urine culture is growing E. coli which is pansensitive We will change antibiotic to oral Keflex CAD HTN HLD Follows with [facility] Continue asa, coreg, imdur, crestor, losartan, metoprolol On amlodipine and hctz for HTN - hold HCTZ tomorrow due to dry clinical status and reassess Patient has LINQ monitor in place due to prior hx of syncope and NSVT CKD III Variable Cr baseline from 0.8-1.1 Creatinine 1.22 today Gentle IVF x 1 L Repeat BMP in AM Rheumatoid Arthritis Holding Xeljanz Resume when able Chronic polyneuropathy Continue gabapentin DVT ppx: Lovenox 40mg SQ Q24 Code status: FULL PCP: Libertad Stein Dispo: Admitted to PCU. Discharge planning ordered Plan: Likely discharge home in a day or 2 Admission and Anticipated Discharge Date Admission Date: October 27, 2020 Subjective 10/28/2020 The patient was seen and examined in telemetry unit She is status post COVID-19 infection on 10/17 with full treatment with remdesivir and dexamethasone She is back with increasing shortness of breath and fatigue Covid 19 infection remains positive with chest x-ray showing bibasilar patchy multilobar infiltration Has been complaining of extremely weakness and tiredness 10/29/20 The patient was seen and examined in telemetry unit and in the Covid room Her respiratory status is better but remains extremely lethargic Denies any other symptoms 10/30/2020 The patient was seen and examined in telemetry unit and in the Covid room She remains extremely lethargic but oxygen requirements has gone down to 1 L/min via nasal cannula to maintain saturation Denies any other significant symptoms 10/31/2020 The patient was seen and examined in telemetry unit and in the Covid room She has been feeling a little better Denies any significant symptoms except weakness and tiredness 11/01/2020 The patient was seen and examined in telemetry unit and in Covid room She remains extremely weak but otherwise gradually improving Still requiring about 1 to 2 L of oxygen to maintain saturation Denies any other symptoms Review of Systems Review of Systems: All systems reviewed and are unremarkable except as noted below Respiratory: Minimal shortness of breath at rest Musculoskeletal: General very weak and lethargic Physical Exam Physical Exam: Lying in the bed without any acute distress Constitutional: well developed, well nourished and + ill appearing Eyes: PERRL, conjunctivae normal, anicteric sclerae ENMT: external ear and nose normal, oropharynx normal Neck: trachea midline, no thyromegaly Respiratory: no respiratory distress (Moderate respiratory distress at rest) and no cough (Minimal cough) Auscultation: + diminished lung sounds, + crackles and + wheezes Cardiovascular: Rate/Rhythm: regular rate and regular rhythm; not tachycardic Heart Sounds: normal S1 and normal S2; no murmur Gastrointestinal (Abdomen): normal bowel sounds, soft, nontender, no hepatosplenomegaly Musculoskeletal: No acute arthritis in any joint Neurologic: Alert, awake and oriented x3. Generally weak Lymphatic: no cervical or axillary lymphadenopathy Results & Data Results & Data ([facility]) Vital Signs (Past 12 Hours) Vital Signs Temp Pulse Pulse Resp BP Pulse Ox 11/01/20 11:28 36.9 C 62 18 114/63 95 11/01/20 08:06 37.0 C 61 20 118/65 94 11/01/20 08:00 60 11/01/20 07:00 63 Laboratory Results [facility] 11/01/20 06:06 Sodium 139 Potassium 4.2 D Chloride 103 Carbon Dioxide 29 BUN 29 H Creatinine 1.04 Glucose 144 H Calcium 9.0 Medications Administered Current Inpatient Medications Acetaminophen (Acetaminophen 325 Mg Tab) 650 mg PO Q4H PRN PRN Reason: Pain or Fever Stop: 11/26/20 18:06 Last Admin: 10/30/20 17:20 Dose: 650 mg Documented by: Albuterol (Albuterol Hfa 8 Gm Inhaler) 1 puffs INH Q4R PRN PRN Reason: Shortness Of Breath Stop: 11/26/20 18:06 Albuterol (Albuterol 0.083% Nebu Soln 3 Ml Vial) 2.5 mg NEB Q6R PRN PRN Reason: Shortness Of Breath Or Wheezing Stop: 11/26/20 18:15 Amlodipine Besylate (Amlodipine Besylate 5 Mg Tab) 2.5 mg PO DAILY [facility] Stop: 11/27/20 08:59 Last Admin: 11/01/20 09:16 Dose: 2.5 mg Documented by: Ascorbic Acid (Ascorbic Acid 500 Mg Tab) 500 mg PO DAILY [facility] Stop: 11/27/20 08:59 Last Admin: 11/01/20 09:18 Dose: 500 mg Documented by: Aspirin (Aspirin 81 Mg Ectab) 81 mg PO MoWeFr@0900 [facility] Stop: 11/27/20 08:59 Last Admin: 10/31/20 10:28 Dose: 81 mg Documented by: Baclofen (Baclofen 10 Mg Tab) 10 mg PO TID PRN PRN Reason: pain/spasm Stop: 11/26/20 18:06 Cephalexin HCl (Cephalexin 500 Mg Cap) 500 mg PO BID [facility]; Protocol Stop: 11/03/20 16:59 Last Admin: 11/01/20 10:12 Dose: 500 mg Documented by: Clonazepam (Clonazepam 0.5 Mg Tab) 0.5 mg PO HS PRN PRN Reason: Anxiety Stop: 11/26/20 18:06 Last Admin: 10/30/20 20:58 Dose: 0.5 mg Documented by: Doxycycline Hyclate (Doxycycline Hyclate 100 Mg Cap) 100 mg PO BID@0700,1900 [facility] Stop: 11/06/20 18:59 Last Admin: 11/01/20 06:39 Dose: 100 mg Documented by: Enoxaparin Sodium (Enoxaparin Inj 40 Mg/0.4 Ml Syr) 40 mg SQ Q24H [facility] Stop: 11/26/20 18:59 Last Admin: 10/31/20 21:19 Dose: 40 mg Documented by: Gabapentin (Gabapentin 300 Mg Cap) 300 mg PO BID@0900,1200 [facility] Stop: 11/27/20 08:59 Last Admin: 11/01/20 12:42 Dose: 300 mg Documented by: Gabapentin (Gabapentin 600 Mg Tab) 600 mg PO HS [facility] Stop: 11/26/20 20:59 Last Admin: 10/31/20 21:17 Dose: 600 mg Documented by: Hydrochlorothiazide (Hydrochlorothiazide 25 Mg Tab) 25 mg PO MoWeFr@0900 [facility] Stop: 11/28/20 08:59 Last Admin: 10/31/20 10:29 Dose: 25 mg Documented by: Dexamethasone 6 mg/ Syringe 1.5 mls @ 1 mls/min IV Q24H [facility] Stop: 11/27/20 08:59 Last Admin: 11/01/20 09:20 Dose: 1 mls/min Documented by: Isosorbide Mononitrate (Isosorbide Dane Extended Rel 30 Mg Tabcr) 30 mg PO DAILY [facility] Stop: 11/27/20 08:59 Last Admin: 11/01/20 09:15 Dose: 30 mg Documented by: Lactobacillus Acidophilus (Lactobacillus Acidophilus 1 Gm Pack) 1 gm PO TIDM [facility] Stop: 11/27/20 07:59 Last Admin: 11/01/20 12:42 Dose: 1 gm Documented by: Losartan Potassium (Losartan Potassium 50 Mg Tab) 50 mg PO DAILY [facility] Stop: 11/27/20 08:59 Melatonin (Melatonin 3 Mg Tab) 3 mg PO HSZ PRN PRN Reason: Sleep Stop: 11/26/20 18:14 Metoprolol Succinate (Metoprolol Succ 25mg Ext Rel Tab) [facility] [place] Stop: 11/27/20 08:59 Last Admin: 11/01/20 09:17 Dose: 37.5 mg Documented by: Metoprolol Succinate (Metoprolol Succ 25mg Ext Rel Tab) 25 mg PO HS [facility] Stop: 11/26/20 20:59 Last Admin: 10/31/20 21:18 Dose: Not Given Documented by: Multivitamins/Minerals (Cerovite Adv Formula Tab) 1 tab [facility] [place] Stop: 11/28/20 12:29 Last Admin: 11/01/20 09:16 Dose: 1 tab Documented by: Ondansetron HCl (Ondansetron Inj 2 Mg/Ml 2 Ml Vial) 4 mg IV Q6H PRN PRN Reason: Nausea Stop: 11/26/20 18:06 Pantoprazole Sodium (Pantoprazole 40 Mg Tab) 40 [facility] [place]; Protocol Stop: 11/27/20 08:59 Last Admin: 11/01/20 09:19 Dose: 40 mg Documented by: Polyethylene Glycol (Polyethylene (Miralax) 17 Gm Pack) 17 gm PO DAILY PRN PRN Reason: Constipation Stop: 11/26/20 18:06 Rosuvastatin Calcium (Rosuvastatin Calcium 20 Mg Tab) 40 mg PO QPM [facility] Stop: 11/26/20 20:59 Last Admin: 10/31/20 21:18 Dose: 40 mg Documented by: Simethicone (Simethicone 80 Mg Chew) 80 mg PO BID PRN; Protocol PRN Reason: GAS Stop: 11/26/20 18:19 Zinc Sulfate (Zinc Sulfate 220 Mg Capsule) 220 mg PO QAM [facility] Stop: 11/28/20 12:29 Last Admin: 11/01/20 09:19 Dose: 220 mg Documented by: Zolpidem Tartrate (Zolpidem Tartrate 5 Mg Tab) 5 mg PO HS PRN PRN Reason: Sleep Stop: 11/26/20 18:06 Last Admin: 10/31/20 21:18 Dose: 5 mg Documented by: (1) Rheumatoid arthritis Rheumatoid arthritis location: unspecified site Rheumatoid factor presence: unspecified presence Qualified Code(s): M06.9 - Rheumatoid arthritis, unspecified
[2020-11-01] MEDS: ZOLPIDEM TARTRATE 5 MG TAB PO PRN (20:16)
[2020-11-01] MEDS: SIMETHICONE 80 MG CHEW PO PRN ×2 (20:16→23:55)
[2020-11-01] MEDS: ROSUVASTATIN CALCIUM 20 MG TAB PO SCH (20:16)
[2020-11-01] MEDS: ENOXAPARIN INJ 40 MG/0.4 ML SYR SQ SCH (20:18)
[2020-11-01] MEDS: GABAPENTIN 600 MG TAB PO SCH (20:18)
[2020-11-02] MEDS: METOPROLOL SUCC 25MG EXT REL TAB PO SCH ×2 (07:23→20:48)
[2020-11-02] MEDS: ASPIRIN 81 MG ECTAB PO SCH (07:25)
[2020-11-02] MEDS: dexAMETHasone 6 MG in SYRINGE 0 ML IV SCH (07:25)
[2020-11-02] MEDS: cephALEXin 500 MG CAP PO SCH ×2 (07:25→20:47)
[2020-11-02] MEDS: hydroCHLOROthiazide 25 MG TAB PO SCH (07:26)
[2020-11-02] MEDS: GABAPENTIN 300 MG CAP PO SCH ×2 (07:26→12:42)
[2020-11-02] MEDS: amLODIPine BESYLATE 5 MG TAB PO SCH (07:26)
[2020-11-02] MEDS: LACTOBACILLUS ACIDOPHILUS 1 GM PACK PO SCH ×3 (07:26→17:33)
[2020-11-02] MEDS: ASCORBIC ACID 500 MG TAB PO SCH (07:27)
[2020-11-02] MEDS: ZINC SULFATE 220 MG CAPSULE PO SCH (07:27)
[2020-11-02] MEDS: CEROVITE ADV FORMULA TAB PO SCH (07:27)
[2020-11-02] MEDS: PANTOprazole 40 MG TAB PO SCH (07:27)
[2020-11-02] MEDS: ISOSORBIDE MONO EXTENDED REL 30 MG TABCR PO SCH (07:27)
[2020-11-02] MEDS: DOXYCYCLINE HYCLATE 100 MG CAP PO SCH ×2 (07:27→18:30)
[2020-11-02 08:36] LABS: BUN Creatinine Ratio 36.2 (10-20); Calcium 9.2 mg/dl (8.5-10.1); Creatinine Clr Calc Pharmacy 47.7 ml/min; Est GFR (African American) 70.9 ml/min; Est GFR (Non-African American) 61.2 ml/min; Magnesium 2.5 mg/dl (1.8-2.4); Potassium 4.1 mmol/L (3.5-5.1)
[2020-11-02 08:37] LABS: Phosphorus 3.1 mg/dl (2.5-4.9)
--- NOTE | 2020-11-02 17:17 | Hospitalist Progress Note ---
Date of Service November 02, 2020 Assessment & Plan (1) Acute respiratory failure with hypoxia: (2) Multifocal pneumonia: (3) Rheumatoid arthritis: (4) SARS-CoV-2 positive: (5) Hypertension: (6) CAD (coronary artery disease): Plan: This is a 85-year-old female with PMH of rheumatoid arthritis on immunosuppressive therapy, CAD, HTN, HLD, AAA, history of nonsustained V. tach on event monitor, CKD stage III, lumbar spinal stenosis status post laminectomy, peripheral nerve stimulator secondary to fecal incontinence, polyneuropathy, recently covid positive on 10/17 who presents with worsening SOB and weakness x 5 days. Acute respiratory failure with hypoxia Hypoxic at 85% on room air, now 97% on 4 L NC In setting of recent Sars-COV 2 + test, multifocal PNA Continue supplemental O2 Clinically much better in relation to respiratory symptoms Has been requiring 1 L nasal cannula oxygen to maintain saturation Clinically much better still requiring oxygen to maintain saturation up to 1 to 2 L Getting better gradually Clinically much better today and will get to a steps O2 saturation for possible discharge tomorrow Extreme fatigability Secondary to COVID-19 infection Will ask PT and OT evaluation Multivitamins and zinc supplement started today Not much improvement in her fatigability Has been walking around in the hallway without much difficulty Has been walking around the hallway with a walker and with the nurse Has had loose stool We will get a stool for C. difficile toxin Recent Sars-COV 2 + on 10/17/20 with respiratory sx - covid test from today is pending Known exposure 2 weeks prior with partially vaccinated daughter Patient is fully vaccinated Recently admitted 10/17-10/20, completed PO course of Dexamethasone Symptoms recurred 5 days ago - SOB, weakness, fatigue, dry cough, diarrhea Resume dexamethasone 6 mg IV daily Out of window for Remdesivir therapy Covid isolation precautions Remains moderate shortness of breath at rest with cough Will give Lasix 40 mg intravenously x1 to keep her on the dry side Symptoms of Covid have been improving and will not give any more Lasix Once we better as she does not want to come back Multifocal PNA CXR with nterval development of bibasilar and left midlung predominant airspace opacities congestive of multifocal pneumonia Likely viral etiology but cannot exclude secondary bacterial infection Continue empiric Zosyn Follow blood cultures PRN duonebs, incentive spirometry, mucinex She has been on Zosyn which will cover pneumonia and UTI Will DC Zosyn and start oral doxycycline to cover atypicals We will get chest x-ray tomorrow to evaluate pneumonia Chest x-ray is looking better but he still bilateral infiltration We will continue current antibiotic and finish the course of 7 to 10 days Antibiotic course will be done soon Diarrhea In setting of viral infection C diff, stool cultures pending Received IV fluids in ER Getting stool for C. difficile toxin Urinary tract infection Abnormal UA - urine cx pending Receiving empiric Zosyn Urine culture is growing E. coli which is pansensitive We will change antibiotic to oral Keflex CAD HTN HLD Follows with [facility] Continue asa, coreg, imdur, crestor, losartan, metoprolol On amlodipine and hctz for HTN - hold HCTZ tomorrow due to dry clinical status and reassess Patient has LINQ monitor in place due to prior hx of syncope and NSVT CKD III Variable Cr baseline from 0.8-1.1 Creatinine 1.22 today Gentle IVF x 1 L Repeat BMP in AM Rheumatoid Arthritis Holding Xeljanz Resume when able Chronic polyneuropathy Continue gabapentin DVT ppx: Lovenox 40mg SQ Q24 Code status: FULL PCP: Libertad Stein Dispo: Admitted to PCU. Discharge planning ordered Plan: Likely discharge home in a day or 2 Admission and Anticipated Discharge Date Admission Date: October 27, 2020 Subjective 10/28/2020 The patient was seen and examined in telemetry unit She is status post COVID-19 infection on 10/17 with full treatment with remdesivir and dexamethasone She is back with increasing shortness of breath and fatigue Covid 19 infection remains positive with chest x-ray showing bibasilar patchy multilobar infiltration Has been complaining of extremely weakness and tiredness 10/29/20 The patient was seen and examined in telemetry unit and in the Covid room Her respiratory status is better but remains extremely lethargic Denies any other symptoms 10/30/2020 The patient was seen and examined in telemetry unit and in the Covid room She remains extremely lethargic but oxygen requirements has gone down to 1 L/min via nasal cannula to maintain saturation Denies any other significant symptoms 10/31/2020 The patient was seen and examined in telemetry unit and in the Covid room She has been feeling a little better Denies any significant symptoms except weakness and tiredness 11/01/2020 The patient was seen and examined in telemetry unit and in Covid room She remains extremely weak but otherwise gradually improving Still requiring about 1 to 2 L of oxygen to maintain saturation Denies any other symptoms 11/02/2020 The patient was seen and examined in telemetry unit and in Covid room She has been feeling much better Ambulating in the hallway without much difficulty She wants to go home tomorrow Review of Systems Review of Systems: All systems reviewed and are unremarkable except as noted below Respiratory: Minimal shortness of breath at rest Musculoskeletal: General very weak and lethargic Physical Exam Physical Exam: Lying in the bed without any acute distress Constitutional: well developed, well nourished and + ill appearing Eyes: PERRL, conjunctivae normal, anicteric sclerae ENMT: external ear and nose normal, oropharynx normal Neck: trachea midline, no thyromegaly Respiratory: no respiratory distress (Moderate respiratory distress at rest) and no cough (Minimal cough) Auscultation: + diminished lung sounds, + crackles and + wheezes Cardiovascular: Rate/Rhythm: regular rate and regular rhythm; not tachycardic Heart Sounds: normal S1 and normal S2; no murmur Gastrointestinal (Abdomen): normal bowel sounds, soft, nontender, no hepatosplenomegaly Lymphatic: no cervical or axillary lymphadenopathy Results & Data Results & Data ([facility]) Vital Signs (Past 12 Hours) Vital Signs Temp Pulse Pulse Resp BP Pulse Ox 11/02/20 15:19 68 11/02/20 11:36 36.9 C 66 14 117/64 95 11/02/20 08:30 51 L 11/02/20 07:20 36.4 C L 59 L 14 131/75 93 (1) Rheumatoid arthritis Rheumatoid arthritis location: unspecified site Rheumatoid factor presence: unspecified presence Qualified Code(s): M06.9 - Rheumatoid arthritis, unspecified
[2020-11-02] MEDS: ENOXAPARIN INJ 40 MG/0.4 ML SYR SQ SCH (20:47)
[2020-11-02] MEDS: ROSUVASTATIN CALCIUM 20 MG TAB PO SCH (20:47)
[2020-11-02] MEDS: ZOLPIDEM TARTRATE 5 MG TAB PO PRN (20:47)
[2020-11-02] MEDS: GABAPENTIN 600 MG TAB PO SCH (20:48)
[2020-11-03] MEDS: clonazePAM 0.5 MG TAB PO PRN (03:44)
[2020-11-03 06:31] LABS: Basophils # (auto) 0.01 K/uL (0-0.2); Basophils % (auto) 0.1 %; Hematocrit (blood only) 32.5 % (37-47); Hemoglobin 10.8 g/dL (12.0-16.0); Immature Granulocytes # (auto) 0.09 K/uL (0.00-0.02); Immature Granulocytes % (auto) 0.7 %; Lymphocytes # (auto) 0.46 K/uL (1.2-3.4); Lymphocytes % (auto) 3.7 %; Mean Corpuscular Hemoglobin 31.4 pg (25-34); Mean Corpuscular Hgb Conc 33.2 g/dL (32-36); Mean Corpuscular Volume 94.5 fL (80-100); Mean Platelet Volume 8.9 fL (7.4-10.4); Monocytes # (auto) 0.95 K/uL (0.11-0.59); Monocytes % (auto) 7.7 %; Neutrophils # (auto) 10.88 K/uL (1.4-6.5); Neutrophils % (auto) 87.8 %; Platelet Count 370 K/uL (130-400); RDW Coefficient of Variation 14.4 % (11.5-14.5); RDW Standard Deviation 49.9 fL (36.4-46.3); Red Blood Count 3.44 M/uL (4.2-5.4); White Blood Count 12.39 K/uL (4.8-10.8)
[2020-11-03 06:57] LABS: BUN Creatinine Ratio 39.2 (10-20); Calcium 8.9 mg/dl (8.5-10.1); Creatinine Clr Calc Pharmacy 51.8 ml/min; Est GFR (African American) 78.5 ml/min; Est GFR (Non-African American) 67.7 ml/min; Magnesium 2.4 mg/dl (1.8-2.4); Potassium 4.2 mmol/L (3.5-5.1)
[2020-11-03 07:23] LABS: Phosphorus 3.8 mg/dl (2.5-4.9)
[2020-11-03] MEDS: GABAPENTIN 300 MG CAP PO SCH ×2 (08:02→12:29)
[2020-11-03] MEDS: ASCORBIC ACID 500 MG TAB PO SCH (08:02)
[2020-11-03] MEDS: PANTOprazole 40 MG TAB PO SCH (08:02)
[2020-11-03] MEDS: CEROVITE ADV FORMULA TAB PO SCH (08:02)
[2020-11-03] MEDS: cephALEXin 500 MG CAP PO SCH (08:02)
[2020-11-03] MEDS: DOXYCYCLINE HYCLATE 100 MG CAP PO SCH (08:03)
[2020-11-03] MEDS: LACTOBACILLUS ACIDOPHILUS 1 GM PACK PO SCH ×2 (08:03→12:29)
[2020-11-03] MEDS: amLODIPine BESYLATE 5 MG TAB PO SCH (08:03)
[2020-11-03] MEDS: METOPROLOL SUCC 25MG EXT REL TAB PO SCH (08:03)
[2020-11-03] MEDS: ZINC SULFATE 220 MG CAPSULE PO SCH (08:03)
[2020-11-03] MEDS: ISOSORBIDE MONO EXTENDED REL 30 MG TABCR PO SCH (08:03)
[2020-11-03] MEDS: dexAMETHasone 6 MG in SYRINGE 0 ML IV SCH (08:04)
--- NOTE | 2020-11-03 14:18 | Hospitalist Progress Note ---
Date of Service November 03, 2020 Assessment & Plan (1) Acute respiratory failure with hypoxia: (2) Multifocal pneumonia: (3) Rheumatoid arthritis: (4) SARS-CoV-2 positive: (5) Hypertension: (6) CAD (coronary artery disease): Plan: This is a 85-year-old female with PMH of rheumatoid arthritis on immunosuppressive therapy, CAD, HTN, HLD, AAA, history of nonsustained V. tach on event monitor, CKD stage III, lumbar spinal stenosis status post laminectomy, peripheral nerve stimulator secondary to fecal incontinence, polyneuropathy, recently covid positive on 10/17 who presents with worsening SOB and weakness x 5 days. Acute respiratory failure with hypoxia Hypoxic at 85% on room air, now 97% on 4 L NC In setting of recent Sars-COV 2 + test, multifocal PNA Continue supplemental O2 Clinically much better in relation to respiratory symptoms Has been requiring 1 L nasal cannula oxygen to maintain saturation Clinically much better still requiring oxygen to maintain saturation up to 1 to 2 L Getting better gradually Clinically much better today and will get to a steps O2 saturation for possible discharge tomorrow She has had 2 steps O2 saturation test and and she will require 3 L of oxygen to maintain saturation while ambulating Extreme fatigability Secondary to COVID-19 infection Will ask PT and OT evaluation Multivitamins and zinc supplement started today Not much improvement in her fatigability Has been walking around in the hallway without much difficulty Has been walking around the hallway with a walker and with the nurse Her weakness and tiredness has been improving gradually Has had loose stool We will get a stool for C. difficile toxin Stool was not sent for C. difficile toxin test She does not have any more diarrhea and her abdominal discomfort Recent Sars-COV 2 + on 10/17/20 with respiratory sx - covid test from today is pending Known exposure 2 weeks prior with partially vaccinated daughter Patient is fully vaccinated Recently admitted 10/17-10/20, completed PO course of Dexamethasone Symptoms recurred 5 days ago - SOB, weakness, fatigue, dry cough, diarrhea Resume dexamethasone 6 mg IV daily Out of window for Remdesivir therapy Covid isolation precautions Remains moderate shortness of breath at rest with cough Will give Lasix 40 mg intravenously x1 to keep her on the dry side Symptoms of Covid have been improving and will not give any more Lasix She is worried that she may come back with ongoing Covid or another infection Multifocal PNA CXR with nterval development of bibasilar and left midlung predominant airspace opacities congestive of multifocal pneumonia Likely viral etiology but cannot exclude secondary bacterial infection Continue empiric Zosyn Follow blood cultures PRN duonebs, incentive spirometry, mucinex She has been on Zosyn which will cover pneumonia and UTI Will DC Zosyn and start oral doxycycline to cover atypicals We will get chest x-ray tomorrow to evaluate pneumonia Chest x-ray is looking better but he still bilateral infiltration We will continue current antibiotic and finish the course of 7 to 10 days No cough, fever and her white count is minimally high at 12.39 likely secondary to Decadron Diarrhea In setting of viral infection C diff, stool cultures pending Received IV fluids in ER Stopped without any abdominal discomfort Urinary tract infection Abnormal UA - urine cx pending Receiving empiric Zosyn Urine culture is growing E. coli which is pansensitive We will change antibiotic to oral Keflex Antibiotic course is finished CAD HTN HLD Follows with [facility] Cardiology Continue asa, coreg, imdur, crestor, losartan, metoprolol On amlodipine and hctz for HTN - hold HCTZ tomorrow due to dry clinical status and reassess Patient has LINQ monitor in place due to prior hx of syncope and NSVT CKD III Variable Cr baseline from 0.8-1.1 Creatinine 1.22 today Gentle IVF x 1 L Repeat BMP in AM-her kidney functions and electrolytes are Rheumatoid Arthritis Holding Xeljanz Resume when able Chronic polyneuropathy Continue gabapentin DVT ppx: Lovenox 40mg SQ Q24 Code status: FULL PCP: Libertad Stein Dispo: Admitted to PCU. Discharge planning ordered Plan: Likely discharge home in a day or 2 She will be discharged home this afternoon Admission and Anticipated Discharge Date Admission Date: October 27, 2020 Subjective 10/28/2020 The patient was seen and examined in telemetry unit She is status post COVID-19 infection on 10/17 with full treatment with remdesivir and dexamethasone She is back with increasing shortness of breath and fatigue Covid 19 infection remains positive with chest x-ray showing bibasilar patchy multilobar infiltration Has been complaining of extremely weakness and tiredness 10/29/20 The patient was seen and examined in telemetry unit and in the Covid room Her respiratory status is better but remains extremely lethargic Denies any other symptoms 10/30/2020 The patient was seen and examined in telemetry unit and in the Covid room She remains extremely lethargic but oxygen requirements has gone down to 1 L/min via nasal cannula to maintain saturation Denies any other significant symptoms 10/31/2020 The patient was seen and examined in telemetry unit and in the Covid room She has been feeling a little better Denies any significant symptoms except weakness and tiredness 11/01/2020 The patient was seen and examined in telemetry unit and in Covid room She remains extremely weak but otherwise gradually improving Still requiring about 1 to 2 L of oxygen to maintain saturation Denies any other symptoms 11/02/2020 The patient was seen and examined in telemetry unit and in Covid room She has been feeling much better Ambulating in the hallway without much difficulty She wants to go home tomorrow 11/03/2020 The patient was seen and examined in telemetry unit and Covid room She has been feeling much better and denies any more diarrhea or abdominal pain No more nausea and or vomiting She is ambulating in the hallway with minimal difficulty She will require 3 L of oxygen to maintain saturation with ambulation Review of Systems Review of Systems: All systems reviewed and are unremarkable except as noted below Respiratory: Minimal shortness of breath at rest Musculoskeletal: General very weak and lethargic Physical Exam Physical Exam: Lying in the bed without any acute distress Constitutional: well developed, well nourished and + ill appearing Eyes: PERRL, conjunctivae normal, anicteric sclerae ENMT: external ear and nose normal, oropharynx normal Neck: trachea midline, no thyromegaly Respiratory: no respiratory distress (Moderate respiratory distress at rest) and no cough (Minimal cough) Auscultation: + diminished lung sounds, + crackles and + wheezes Cardiovascular: Rate/Rhythm: regular rate and regular rhythm; not tachycardic Heart Sounds: normal S1 and normal S2; no murmur Gastrointestinal (Abdomen): normal bowel sounds, soft, nontender, no hepatosplenomegaly Musculoskeletal: No acute arthritis in any joint Neurologic: Alert, awake and oriented x3. Lymphatic: no cervical or axillary lymphadenopathy Results & Data Results & Data ([facility]) Vital Signs (Past 12 Hours) Vital Signs Temp Pulse Pulse Pulse Pulse Pulse Pulse 11/03/20 11:13 36.9 C 92 H 11/03/20 08:54 117 H 116 H 109 H 11/03/20 07:16 115 H 11/03/20 07:08 37.1 C 81 11/03/20 03:35 36.6 C 66 Pulse Pulse Resp Resp Resp Resp Resp 11/03/20 11:13 18 11/03/20 08:54 88 66 24 24 22 18 11/03/20 07:16 11/03/20 07:08 16 11/03/20 03:35 20 Resp BP Pulse Ox Pulse Ox Pulse Ox Pulse Ox Pulse Ox 11/03/20 11:13 113/55 L 92 11/03/20 08:54 18 85 L 92 84 L 90 11/03/20 07:16 11/03/20 07:08 130/88 91 11/03/20 03:35 134/75 91 Pulse Ox 11/03/20 11:13 11/03/20 08:54 92 11/03/20 07:16 11/03/20 07:08 11/03/20 03:35 Laboratory Results Short CBC 11/03/20 Range/Units 05:58 WBC 12.39 H (4.8-10.8) K/uL Hgb 10.8 L (12.0-16.0) g/dL Hct 32.5 L (37-47) % Plt Count 370 (130-400) K/uL BMP 11/03/20 05:58 Sodium 139 Potassium 4.2 Chloride 105 Carbon Dioxide 28 BUN 31 H Creatinine 0.80 Glucose 138 H Calcium 8.9 Medications Administered Current Inpatient Medications Acetaminophen (Acetaminophen 325 Mg Tab) 650 mg PO Q4H PRN PRN Reason: Pain or Fever Stop: 11/26/20 18:06 Last Admin: 10/30/20 17:20 Dose: 650 mg Documented by: Albuterol (Albuterol Hfa 8 Gm Inhaler) 1 puffs INH Q4R PRN PRN Reason: Shortness Of Breath Stop: 11/26/20 18:06 Albuterol (Albuterol 0.083% Nebu Soln 3 Ml Vial) 2.5 mg NEB Q6R PRN PRN Reason: Shortness Of Breath Or Wheezing Stop: 11/26/20 18:15 Amlodipine Besylate (Amlodipine Besylate 5 Mg Tab) 2.5 mg PO DAILY [facility] Stop: 11/27/20 08:59 Last Admin: 11/03/20 08:03 Dose: 2.5 mg Documented by: Ascorbic Acid (Ascorbic Acid 500 Mg Tab) 500 mg PO DAILY [facility] Stop: 11/27/20 08:59 Last Admin: 11/03/20 08:02 Dose: 500 mg Documented by: Aspirin (Aspirin 81 Mg Ectab) 81 mg PO MoWeFr@0900 [facility] Stop: 11/27/20 08:59 Last Admin: 11/02/20 07:25 Dose: 81 mg Documented by: Baclofen (Baclofen 10 Mg Tab) 10 mg PO TID PRN PRN Reason: pain/spasm Stop: 11/26/20 18:06 Cephalexin HCl (Cephalexin 500 Mg Cap) 500 mg PO BID [facility]; Protocol Stop: 11/03/20 16:59 Last Admin: 11/03/20 08:02 Dose: 500 mg Documented by: Clonazepam (Clonazepam 0.5 Mg Tab) 0.5 mg PO HS PRN PRN Reason: Anxiety Stop: 11/26/20 18:06 Last Admin: 11/03/20 03:44 Dose: 0.5 mg Documented by: Doxycycline Hyclate (Doxycycline Hyclate 100 Mg Cap) 100 mg PO BID@0700,1900 [facility] Stop: 11/06/20 18:59 Last Admin: 11/03/20 08:03 Dose: 100 mg Documented by: Enoxaparin Sodium (Enoxaparin Inj 40 Mg/0.4 Ml Syr) 40 mg SQ Q24H [facility] Stop: 11/26/20 18:59 Last Admin: 11/02/20 20:47 Dose: 40 mg Documented by: Gabapentin (Gabapentin 300 Mg Cap) 300 mg PO BID@0900,1200 [facility] Stop: 11/27/20 08:59 Last Admin: 11/03/20 12:29 Dose: 300 mg Documented by: Gabapentin (Gabapentin 600 Mg Tab) 600 mg PO HS [facility] Stop: 11/26/20 20:59 Last Admin: 11/02/20 20:48 Dose: 600 mg Documented by: Hydrochlorothiazide (Hydrochlorothiazide 25 Mg Tab) 25 mg PO MoWeFr@0900 [facility] Stop: 11/28/20 08:59 Last Admin: 11/02/20 07:26 Dose: 25 mg Documented by: Dexamethasone 6 mg/ Syringe 1.5 mls @ 1 mls/min IV Q24H [facility] Stop: 11/27/20 08:59 Last Admin: 11/03/20 08:04 Dose: 1 mls/min Documented by: Isosorbide Mononitrate (Isosorbide [place]in Extended Rel 30 Mg Tabcr) 30 mg PO DAILY [facility] Stop: 11/27/20 08:59 Last Admin: 11/03/20 08:03 Dose: 30 mg Documented by: Lactobacillus Acidophilus (Lactobacillus Acidophilus 1 Gm Pack) 1 gm PO TIDM [facility] Stop: 11/27/20 07:59 Last Admin: 11/03/20 12:29 Dose: 1 gm Documented by: Losartan Potassium (Losartan Potassium 50 Mg Tab) 50 mg PO DAILY [facility] Stop: 11/27/20 08:59 Melatonin (Melatonin 3 Mg Tab) 3 mg PO HSZ PRN PRN Reason: Sleep Stop: 11/26/20 18:14 Metoprolol Succinate (Metoprolol Succ 25mg Ext Rel Tab) [facility] Stop: 11/27/20 08:59 Last Admin: 11/03/20 08:03 Dose: 37.5 mg Documented by: Metoprolol Succinate (Metoprolol Succ 25mg Ext Rel Tab) 25 mg PO HS [facility] Stop: 11/26/20 20:59 Last Admin: 11/02/20 20:48 Dose: Not Given Documented by: Multivitamins/Minerals (Cerovite Adv Formula Tab) [facility] [place] Stop: 11/28/20 12:29 Last Admin: 11/03/20 08:02 Dose: 1 tab Documented by: Ondansetron HCl (Ondansetron Inj 2 Mg/Ml 2 Ml Vial) 4 mg IV Q6H PRN PRN Reason: Nausea Stop: 11/26/20 18:06 Pantoprazole Sodium (Pantoprazole 40 Mg Tab) [facility] [place] Protocol Stop: 11/27/20 08:59 Last Admin: 11/03/20 08:02 Dose: 40 mg Documented by: Polyethylene Glycol (Polyethylene (Miralax) 17 Gm Pack) 17 gm PO DAILY PRN PRN Reason: Constipation Stop: 11/26/20 18:06 Rosuvastatin Calcium (Rosuvastatin Calcium 20 Mg Tab) 40 mg PO QPM [facility] Stop: 11/26/20 20:59 Last Admin: 11/02/20 20:47 Dose: 40 mg Documented by: Simethicone (Simethicone 80 Mg Chew) 80 mg PO BID PRN; Protocol PRN Reason: GAS Stop: 11/26/20 18:19 Last Admin: 11/01/20 23:55 Dose: 80 mg Documented by: Zinc Sulfate (Zinc Sulfate 220 Mg Capsule) 220 mg PO QAM [facility] Stop: 11/28/20 12:29 Last Admin: 11/03/20 08:03 Dose: 220 mg Documented by: Zolpidem Tartrate (Zolpidem Tartrate 5 Mg Tab) 5 mg PO HS PRN PRN Reason: Sleep Stop: 11/26/20 18:06 Last Admin: 11/02/20 20:47 Dose: 5 mg Documented by: (1) Rheumatoid arthritis Rheumatoid arthritis location: unspecified site Rheumatoid factor presence: unspecified presence Qualified Code(s): M06.9 - Rheumatoid arthritis, u nspecified
--- NOTE | 2020-11-04 08:05 | Discharge Summary ---
Date of Service November 04, 2020 Admission HPI Per Admitting Provider This is a 85-year-old female with PMH of rheumatoid arthritis on immunosuppressive therapy, CAD, HTN, HLD, AAA, history of nonsustained V. tach on event monitor, CKD stage III, lumbar spinal stenosis status post laminectomy, peripheral nerve stimulator secondary to fecal incontinence, polyneuropathy, recently covid positive on 10/17 who presents with worsening SOB and weakness x 5 days. Patient was recently admitted to our service from 10/17-10/20 in setting of fall with compression fracture as well as respiratory distress in setting of Covid. Was previously vaccinated. Received IV dexamethasone during admission and was discharged on oral course of steroids, which she recently completed. When discharged, felt very well for the first 2 days before becoming more weak, tired and dyspneic, needing to lie down and catch her breath after ambulating from restroom back to her bed. Also endorses dry cough, sweating and chills as well as decreased appetite and diarrhea. Tried to drink Gatorade and water but admittedly drank less than usual. Did not take her temperature so unsure about fever. Denies any lightheadedness, chest pain or palpitations. No nausea or vomiting. No urinary symptoms. Has been having difficulty sleeping due to steroids. Admission Exam Per Admitting Provider Vitals signs as noted above General Appearance:Moderately built and nourished, no apparent distress Head: normocephalic, Atraumatic Eyes: normal inspection, EOMI Neck: supple, Trachea midline Respiratory/Chest: Decreased breath sounds, + Basal Crackles, No accessory muscle use Cardiovascular: S1, S2, No murmur Abdomen/GI:Soft, Non tender, Bowel sounds present Extremities/Musculoskeletal:normal inspection, no edema, +B/L LE Ecchymosis Neurologic/Psych:AAOX3, grossly no focal neurological deficits Skin: normal color, warm Principal Diagnosis Acute respiratory failure with hypoxia, multifocal pneumonia, ongoing COVID-19 infection and positivity, rheumatoid arthritis, CAD Discharge Exam Constitutional well developed, well nourished and + ill appearing Eyes PERRL, conjunctivae normal, anicteric sclerae ENMT external ear and nose normal, oropharynx normal Neck trachea midline, no thyromegaly Respiratory no respiratory distress (Moderate respiratory distress at rest) and no cough (Minimal cough) Auscultation: + diminished lung sounds, + crackles and + wheezes Cardiovascular Rate/Rhythm: regular rate and regular rhythm; not tachycardic Heart Sounds: normal S1 and normal S2; no murmur Gastrointestinal (Abdomen) normal bowel sounds, soft, nontender, no hepatosplenomegaly Lymphatic no cervical or axillary lymphadenopathy Discharge Data Allergies Allergy/AdvReac Type Severity Reaction Status Date / Time morphine Allergy Severe SHORTNESS Verified 10/17/20 14:34 OF BREATH shrimp Allergy Severe GI SYMPTOMS Verified 10/17/20 14:34 Sulfa (Sulfonamide Allergy Intermediate HIVES Verified 10/17/20 14:34 Antibiotics) benzonatate Allergy Unknown GI UPSET Verified 10/17/20 14:34 codeine Allergy Unknown NAUSEA Verified 10/17/20 14:34 lisinopril Allergy Unknown GI SYMPTOMS Verified 10/17/20 14:34 adhesive AdvReac Intermediate TAPE - RASH Verified 10/17/20 14:34 tramadol AdvReac Intermediate Nausea Verified 10/17/20 14:34 Consultations 10/27/20 15:32 ED Decision to Admit Stat Ordered Studies 10/27/20 17:17 CT angio chest PE protocol Urgent Hospital Course (1) Acute respiratory failure with hypoxia: (2) Multifocal pneumonia: (3) Rheumatoid arthritis: (4) SARS-CoV-2 positive: (5) Hypertension: (6) CAD (coronary artery disease): This is a 85-year-old female with PMH of rheumatoid arthritis on immunosuppressive therapy, CAD, HTN, HLD, AAA, history of nonsustained V. tach on event monitor, CKD stage III, lumbar spinal stenosis status post laminectomy, peripheral nerve stimulator secondary to fecal incontinence, polyneuropathy, recently covid positive on 10/17 who presents with worsening SOB and weakness x 5 days. Acute respiratory failure with hypoxia Hypoxic at 85% on room air, now 97% on 4 L NC In setting of recent Sars-COV 2 + test, multifocal PNA Continue supplemental O2 Clinically much better in relation to respiratory symptoms Has been requiring 1 L nasal cannula oxygen to maintain saturation Clinically much better still requiring oxygen to maintain saturation up to 1 to 2 L Getting better gradually Clinically much better today and will get to a steps O2 saturation for possible discharge tomorrow She has had 2 steps O2 saturation test and and she will require 3 L of oxygen to maintain saturation while ambulating Extreme fatigability Secondary to COVID-19 infection Will ask PT and OT evaluation Multivitamins and zinc supplement started today Not much improvement in her fatigability Has been walking around in the hallway without much difficulty Has been walking around the hallway with a walker and with the nurse Her weakness and tiredness has been improving gradually Has had loose stool We will get a stool for C. difficile toxin Stool was not sent for C. difficile toxin test She does not have any more diarrhea and her abdominal discomfort Recent Sars-COV 2 + on 10/17/20 with respiratory sx - covid test from today is pending Known exposure 2 weeks prior with partially vaccinated daughter Patient is fully vaccinated Recently admitted 10/17-10/20, completed PO course of Dexamethasone Symptoms recurred 5 days ago - SOB, weakness, fatigue, dry cough, diarrhea Resume dexamethasone 6 mg IV daily Out of window for Remdesivir therapy Covid isolation precautions Remains moderate shortness of breath at rest with cough Will give Lasix 40 mg intravenously x1 to keep her on the dry side Symptoms of Covid have been improving and will not give any more Lasix She is worried that she may come back with ongoing Covid or another infection Multifocal PNA CXR with nterval development of bibasilar and left midlung predominant airspace opacities congestive of multifocal pneumonia Likely viral etiology but cannot exclude secondary bacterial infection Continue empiric Zosyn Follow blood cultures PRN duonebs, incentive spirometry, mucinex She has been on Zosyn which will cover pneumonia and UTI Will DC Zosyn and start oral doxycycline to cover atypicals We will get chest x-ray tomorrow to evaluate pneumonia Chest x-ray is looking better but he still bilateral infiltration We will continue current antibiotic and finish the course of 7 to 10 days No cough, fever and her white count is minimally high at 12.39 likely secondary to Decadron Diarrhea In setting of viral infection C diff, stool cultures pending Received IV fluids in ER Stopped without any abdominal discomfort Urinary tract infection Abnormal UA - urine cx pending Receiving empiric Zosyn Urine culture is growing E. coli which is pansensitive We will change antibiotic to oral Keflex Antibiotic course is finished CAD HTN HLD Follows with [facility] Continue asa, coreg, imdur, crestor, losartan, metoprolol On amlodipine and hctz for HTN - hold HCTZ tomorrow due to dry clinical status and reassess Patient has LINQ monitor in place due to prior hx of syncope and NSVT CKD III Variable Cr baseline from 0.8-1.1 Creatinine 1.22 today Gentle IVF x 1 L Repeat BMP in AM-her kidney functions and electrolytes are Rheumatoid Arthritis Holding Xeljanz Resume when able Chronic polyneuropathy Continue gabapentin DVT ppx: Lovenox 40mg SQ Q24 Code status: FULL PCP: Libertad Stein Dispo: Admitted to PCU. Discharge planning ordered Likely discharge home in a day or 2 She will be discharged home this afternoon Total Time Total Time Spent Total Time Spent (In Minutes): 45 minutes Discharge Plan Discharge Items Patient Disposition: Home - Self-Care Reason For Visit: MULTIFOCAL PNA, HYPOXIC RESP FAILURE Discharge Diagnosis: Acute respiratory failure with hypoxia, multifocal pneumonia, ongoing COVID-19 infection and positivity, rheumatoid arthritis, CAD Condition on Discharge: Fair Activity: Resume your previous activity Non-emergency contact: Primary Care Provider Call non-emergency contact if: you have any medication questions and your symptoms worsen Follow-up/Referrals: Fiona Stein, [Primary Care Provider] - (Date & Time 11/08/2020 11:00 AM Provider Rafael Wade MD Department Family Practice [facility] ) Diet: Heart Healthy Addtl Attending Provider Instructions: Please take extreme precautions to avoid fall Use your walker while ambulating Use oxygen as directed during ambulation Try to take [id number] multivitamin and zinc as advised Try to take [id number] melatonin for sleeping Keep appointment with your primary care provider Please do not take Xeljanz as long as you are on Dexamethasone and you talk to your Surety Bond Agent Maintain Covid isolation protocol for 5 more days as follows: Home Isolation COVID-19 Instructions The following information about Home Isolation is from the CDC Website: https://www.cdc.gov/coronavirus/2019-ncov/hcp/rkigxljj-anxirxg-fhdnlf.html Stay home except to get medical care People who are mildly ill with COVID-19 are able to isolate at home during their illness. You should restrict activities outside your home, except for getting medical care. Do not go to work, school, or public areas. Avoid using public transportation, ride-sharing, or taxis. Separate yourself from other people and animals in your home People: As much as possible, you should stay in a specific room and away from other people in your home. Also, you should use a separate bathroom, if available. Animals: You should restrict contact with pets and other animals while you are sick with COVID-19, just like you would around other people. Although there have not been reports of pets or other animals becoming sick with COVID-19, it is still recommended that people sick with COVID-19 limit contact with animals until more information is known about the virus. When possible, have another member of your household care for your animals while you are sick. If you are si ck with COVID-19, avoid contact with your pet, including petting, snuggling, being kissed or licked, and sharing food. If you must care for your pet or be around animals while you are sick, wash your hands before and after you interact with pets and wear a face mask. Call ahead before visiting your doctor If you have a medical appointment, call the healthcare provider and tell them that you have or may have COVID-19. This will help the healthcare providers office take steps to keep other people from getting infected or exposed. Wear a face mask You should wear a face mask when you are around other people (e.g., sharing a room or vehicle) or pets and before you enter a healthcare providers office. If you are not able to wear a face mask (for example, because it causes trouble breathing), then people who live with you should not stay in the same room with you, or they should wear a face mask if they enter your room. Cover your coughs and sneezes Cover your mouth and nose with a tissue when you cough or sneeze. Throw used tissues in a lined trash can. Immediately wash your hands with soap and water for at least 20 seconds or, if soap and water are not available, clean your hands with an alcohol-based hand green chain puller that contains at least 60% alcohol. Clean your hands often Wash your hands often with soap and water for at least 20 seconds, especially after blowing your nose, coughing, or sneezing; going to the bathroom; and before eating or preparing food. If soap and water are not readily available, use an alcohol-based hand green chain puller with at least 60% alcohol, covering all surfaces of your hands and rubbing them together until they feel dry. Soap and water are the best option if hands are visibly dirty. Avoid touching your eyes, nose, and mouth with unwashed hands. Avoid sharing personal household items You should not share dishes, drinking glasses, cups, eating utensils, towels, or bedding with other people or pets in your home. After using these items, they should be washed thoroughly with soap and water. Clean all high-touch surfaces everyday High touch surfaces include counters, tabletops, doorknobs, bathroom fixtures, toilets, phones, keyboards, tablets, and bedside tables. Also, clean any surface s that may have blood, stool, or body fluids on them. Use a household cleaning spray or wipe, according to the label instructions. Labels contain instructions for safe and effective use of the cleaning product including precautions you should take when applying the product, such as wearing gloves and making sure you have good ventilation during use of the product. Monitor your symptoms Seek prompt medical attention if your illness is worsening (e.g., difficulty breathing).Beforeseeking care, call your healthcare provider and tell them that you have, or are being evaluated for, COVID-19. Put on a face mask before you enter the facility. These steps will help the healthcare providers office to keep other people in the office or waiting room from getting infected or exposed. Ask your healthcare provider to call the local or state health department. Persons who are placed under active monitoring or facilitated self- monitoring should follow instructions provided by their local health department or occupational health professionals, as appropriate. When working with your local health department check their available hours. If you have a medical emergency and need to call 911, notify the dispatch personnel that you have, or are being evaluated for COVID-19. If possible, put on a face mask before emergency medical services arrive. Discontinuing home isolation Patients with confirmed COVID-19 should remain under home isolation precautions until the risk of secondary transmission to others is thought to be low. The decision to discontinue home isolation precautions should be made on a xxya-me-xaaj basis, in consultation with healthcare providers and state and local health departments. Pending Studies at Discharge: No Stand-Alone Forms: My [employer], Smoking Cessation Medications and DC Order Prescriptions: New cephalexin 500 mg Capsule 500 mg PO BID Qty: 6 RF: 0 doxycycline hyclate 100 mg Capsule 100 mg PO BID@0700,1900 Qty: 6 RF: 0 Lactinex 1 million cell tablet,chewable 1 tab PO BID Qty: 30 RF: 0 Continued clonazepam 0.5 mg tablet 0.5 mg PO HS PRN (Reason: Anxiety) RF: 0 hydrochlorothiazide 25 mg tablet 25 mg PO MOWEFR RF: 0 rosuvastatin [Crestor] 40 mg tablet 40 mg PO QPM RF: 0 aspirin [Adult Low Dose Aspirin] 81 mg tablet,delayed release (DR/EC) 81 mg PO MOWEFR RF: 0 losartan [Cozaar] 50 mg tablet 50 mg PO DAILY RF: 0 omeprazole 20 mg capsule,delayed release(DR/EC) 40 mg PO QAM RF: 0 baclofen 10 mg tablet 10 mg PO TID PRN (Reason: pain/spasm) RF: 0 amlodipine 2.5 mg tablet 2.5 mg PO DAILY RF: 0 albuterol sulfate 90 mcg/actuation HFA aerosol inhaler 1 inh inhalation Q4H PRN (Reason: Shortness Of Breath) RF: 0 melatonin 5 mg capsule 5 mg PO HS PRN (Reason: Sleep) RF: 0 ascorbate calcium (vitamin C) 500 mg tablet 500 mg PO DAILY RF: 0 gabapentin 300 mg capsule 600 mg PO HS RF: 0 simethicone 125 mg Tablet,Chewable 125 mg PO BID PRN (Reason: Unknown) RF: 0 metoprolol succinate [Toprol XL] 25 mg Tablet Extended Release 24 Hr 37.5 mg PO QAM RF: 0 Xeljanz XR 11 mg Tablet Extended Release 24 Hr 11 mg PO DAILY RF: 0 gabapentin 300 mg capsule 300 mg PO BID RF: 0 dexamethasone [Decadron] 6 mg tablet 6 mg PO DAILY Qty: 3 RF: 0 metoprolol succinate 25 mg tablet extended release 24 hr 25 mg PO HS RF: 0 isosorbide mononitrate 30 mg tablet extended release 24 hr 30 mg PO DAILY RF: 0 Discharge Orders: Discharge Order (Routine); Ordered 11/03/20 Ordered By: Lizeth Mcdonald Admission Data Admit Date/Time: 10/27/20 15:59 Attending Provider: Lizeth Mcdonald Admit Provider: Delmer Duran Primary Care Provider: Fiona Stein Other Providers: Delmer Duran Other Interventions: Discharge Summary Assessment (RN) Last Done: 11/03/20 14:53
== END 2020-11-03 16:00 | disposition home or self-care (01) | DRG 177 ==
LOC: ED 12:26 → SUATTDRO 15:59 → 2E 15:59
DX: I12.9 Hypertensive chronic kidney disease with stage 1 through stage 4 chronic kidney disease, or unspecified chronic kidney disease; G62.9 Polyneuropathy, unspecified; E86.0 Dehydration; Z91.013 Allergy to seafood; Z88.2 Allergy status to sulfonamides; A08.39 Other viral enteritis; J15.9 Unspecified bacterial pneumonia; N39.0 Urinary tract infection, site not specified; J96.01 Acute respiratory failure with hypoxia; Z88.5 Allergy status to narcotic agent; R53.83 Other fatigue; I25.2 Old myocardial infarction; N18.30 Chronic kidney disease, stage 3 unspecified; Z95.818 Presence of other cardiac implants and grafts; E78.5 Hyperlipidemia, unspecified; Z79.82 Long term (current) use of aspirin; U07.1 COVID-19; M06.9 Rheumatoid arthritis, unspecified; B96.20 Unspecified Escherichia coli [E. coli] as the cause of diseases classified elsewhere; J12.82 Pneumonia due to coronavirus disease 2019; Z79.899 Other long term (current) drug therapy; Z88.8 Allergy status to other drugs, medicaments and biological substances; I25.10 Atherosclerotic heart disease of native coronary artery without angina pectoris; Z91.048 Other nonmedicinal substance allergy status; Z99.81 Dependence on supplemental oxygen

== ENCOUNTER 2021-06-22 20:59 | Inpatient (IN) ==
[2021-06-22] MEDS ORDERED: SODIUM CHLORIDE 0.9% 500 ML IV SCH (22:00)
[2021-06-22 22:20] LABS: Troponin I High Sensitivity 23.6 pg/ml (0-14)
[2021-06-22 22:22] LABS: Albumin Globulin Ratio 1.6 (0.9-2); Albumin Level 4.2 gm/dl (3.4-5.0); BUN Creatinine Ratio 25.7 (10-20); Calcium 9.5 mg/dl (8.5-10.1); Creatinine Clr Calc Pharmacy 40.9 ml/min; Est GFR (African American) 56.1 ml/min; Est GFR (Non-African American) 48.4 ml/min; Globulin 2.7 gm/dl (2.5-4.0); Magnesium 1.9 mg/dl (1.7-2.4); Potassium 3.9 mmol/L (3.5-5.1); Total Protein 6.9 gm/dl (6.0-8.3)
[2021-06-22 23:09] LABS: INR 1.1 (0.9-1.1); Partial Thromboplastin Ratio 0.8; Partial Thromboplastin Time 21.4 Seconds (21.0-31.0); Prothrombin Time 11.4 Seconds (9.0-12.0)
[2021-06-22 23:26] LABS: Hematocrit (blood only) 39.6 % (37-47); Hemoglobin 12.6 g/dL (12.0-16.0); Mean Corpuscular Hemoglobin 31.1 pg (25-34); Mean Corpuscular Hgb Conc 31.8 g/dL (32-36); Mean Corpuscular Volume 97.8 fL (80-100); Mean Platelet Volume 10.5 fL (7.4-10.4); Platelet Count 208 K/uL (130-400); RDW Coefficient of Variation 16.2 % (11.5-14.5); RDW Standard Deviation 57.8 fL (36.4-46.3); Red Blood Count 4.05 M/uL (4.2-5.4); White Blood Count 12.02 K/uL (4.8-10.8)
[2021-06-22 23:27] LABS: Basophils # (auto) 0.01 K/uL (0-0.2); Basophils % (auto) 0.1 %; Eosinophils # (auto) 0.01 K/uL (0-0.5); Eosinophils % (auto) 0.1 %; Immature Granulocytes # (auto) 0.03 K/uL (0.00-0.02); Immature Granulocytes % (auto) 0.2 %; Lymphocytes # (auto) 0.58 K/uL (1.2-3.4); Lymphocytes % (auto) 4.8 %; Monocytes # (auto) 0.45 K/uL (0.11-0.59); Monocytes % (auto) 3.7 %; Neutrophils # (auto) 10.94 K/uL (1.4-6.5); Neutrophils % (auto) 91.1 %; Platelet Estimate Normal (Normal)
--- NOTE | 2021-06-22 23:37 | Emergency Department Note ---
Impression & Plan Weakness, Fever ED Provider Note NAME: ESTELLE CARRIZALES AGE: 86 SEX: F : 1935 ARRIVES VIA: Ambulance INFORMANT: Patient, ED PROVIDER(S): Michael Navarrete DO CHIEF COMPLAINT: Weakness HPI: The patient is an 86-year-old female who presented to emergency department for an evaluation of generalized weakness. Patient states that she was sitting in a chair and was unable to stand because of weakness in both lower extremiti es. She denies having any headache. She denies any upper extremity weakness. She has no headache. The patient states that she has had no chest pain or difficulty breathing. She denies having any cough. She states she is not been seen by her primary care physician recently. She is been compliant with her outpatient medications. She was found to have fever upon arrival to the emergency department. ROS: See above HPI for pertinent positives & negatives. A total of 10 systems reviewed and were otherwise negative. PAST MEDICAL HISTORY: See Below PAST SURGICAL HISTORY: See Below FAMILY HISTORY: See Below SOCIAL HISTORY: See Below HOME MEDICATIONS: See Below ALLERGIES: See Below VITALS: See Below PHYSICAL EXAMINATION: GENERAL: The patient is awake and alert. She is resting comfortably. EYES: The conjunctivae are clear. The pupils are round and reactive. EARS, NOSE, MOUTH AND THROAT: The nose is without any evidence of any deformity. NECK: The neck is nontender and supple. RESPIRATORY: Normal respiratory effort is noted there is no evidence of wheezing rhonchi or rales CARDIOVASCULAR: Regular rate and rhythm noted there no murmurs rubs or gallops normal S1 normal S2. GASTROINTESTINAL: The abdomen is soft. Abdomen is nontender MUSCULOSKELETAL/EXTREMITIES: There is no evidence of gross deformity full range of motion is noted in the hips and shoulders. SKIN: Skin is warm and dry. Trace pedal edema was noted bilaterally. NEUROLOGIC: Patient is awake alert and oriented x3. Turkey Roll Maker strength was symmetric. There is no facial droop. The patient has significant difficulty lifting the legs off the bed. She cannot hold either leg off the bed for greater than 5 seconds. MEDICAL DECISION MAKING: The patient is an 86-year-old female who presents to the emergency department for an evaluation of generalized weakness. She was unable to stand. She was having very significant weakness in both lower extremities. The patient was found have a fever in the emergency department. She had an elevated white blood cell count. Given her age and comorbidities she was treated with empiric antibiotics. The patient was still having significant weakness and difficulty ambulating. I did not feel that she would be a good candidate for outpatient management. For this reason the [facility] was notified about the patient. Triage Nursing notes reviewed. Prior medical records reviewed Vital Signs: reviewed and remarkable for fever. Differential diagnosis: Infection, dehydration, metabolic abnormality, hypo/hyperglycemia, electrolyte disturbance, anemia, hypoxia, cardiac sources, intracerebral event, toxicologic, neurologic, as well as other pathologies. ER treatment provided: See below Diagnostics interpreted by me: ECG: EKG was obtained in the emergency department. My interpretation is sinus rhythm at 100 bpm. PACs were noted. Nonspecific T wave flattening is noted. This was compared to a tracing from October 272020. No changes were noted. Cardiac Monitoring: An order was placed for continuous cardiac monitoring. The monitor shows a rate of 80 bpm sinus with sinus rhythm. Laboratory studies: As stated above and show below. Imaging studies: See below Consultation(s): I discussed this case with Dr. Kaufman. He will evaluate the patient in the emergency department. Past Med/Surg History Medical History Acquired right foot drop Arachnoiditis CAD (coronary artery disease) Cervical radiculopathy Degenerative joint disease of knee Dyslipidemia Facet syndrome, lumbar Greater trochanteric bursitis Hypertension Immunosuppression due to chronic steroid use Left knee pain Lumbago Lumbar compression fracture L1 acute on chronic MRI 03/[address] 10/17/2020 Lumbar postlaminectomy syndrome Lumbar radiculitis Lumbar spinal stenosis Myocardial infarct, old Osteoarthritis Osteoporosis Peripheral neuropathy Pes anserine bursitis Pes anserinus tendonitis of right lower extremity Postoperative seroma L2-4 Rheumatoid arthritis Rheumatoid arthritis of shoulder Right knee pain Status post TKA taking shots due to bursitis Right knee pain Surgical History History of adenoidectomy History of angioplasty History of breast biopsy History of hysterectomy History of loop recorder follows with Dr Bergeron History of lumbosacral spine surgery flexible rainer and does lesi History of PTCA History of tonsillectomy History of total shoulder replacement Right S/P total knee arthroplasty Right Status post right knee replacement Family History Father Myocardial infarction Brother Myocardial infarction Other Family history non-contributory Denies family history of Ovarian cancer Prostate cancer Breast cancer Colorectal cancer Social History Smoking Status: Former smoker Second Hand Exposure: No; Hx Alcohol Use: No Hx Substance Use: No Preferred Language: Icelandic Communication Ability: Effective Visual Impairment: No Limitations Hearing Ability: Normal Feeder/Folder Required: No Beliefs That Will Affect Care: None marital status: Current Living Situation: Spouse current occupational status: retired How many Children do You have: 7 Feels Safe at Home: Yes during the past year weight has: remained stable Assistive Devices: Glasses, Oxygen - Continuous and Walker Allergies Allergies Allergy/AdvReac Type Severity Reaction Status Date / Time morphine Allergy Severe SHORTNESS Verified 06/22/21 21:55 OF BREATH shrimp Allergy Severe GI SYMPTOMS Verified 06/22/21 21:55 Sulfa (Sulfonamide Allergy Intermediate HIVES Verified 06/22/21 21:55 Antibiotics) benzonatate Allergy Unknown GI UPSET Verified 06/21/21 11:08 codeine Allergy Unknown NAUSEA Verified 06/22/21 21:55 lisinopril Allergy Unknown GI SYMPTOMS Verified 06/22/21 21:55 adhesive AdvReac Intermediate TAPE - RASH Verified 06/22/21 21:55 tramadol AdvReac Intermediate Nausea Verified 06/21/21 11:04 Home Meds Home Medications Medication Instructions Recorded Confirmed clonazepam 0.5 mg tablet 0.5 mg PO HS PRN tab 11/14/17 06/22/21 rosuvastatin 40 mg tablet (Crestor) 40 mg PO QPM 11/14/17 06/22/21 aspirin 81 mg tablet,delayed 81 mg PO MOWEFR tab 02/06/18 06/22/21 release (Adult Low Dose Aspirin) gabapentin 300 mg capsule 300 mg PO AMHS 12/25/18 06/22/21 simethicone 125 mg chewable tablet 125 mg PO BID PRN 12/25/18 06/22/21 tofacitinib 11 mg tablet,extended 11 mg PO DAILY 12/25/18 06/22/21 release 24 hr (Xeljanz XR) baclofen 10 mg tablet 10 mg PO HS tab 07/31/19 06/22/21 losartan 50 mg tablet (Cozaar) 50 mg PO DAILY tab 06/21/20 06/22/21 isosorbide mononitrate 30 mg 60 mg PO QAM 10/17/20 06/22/21 tablet,extended release 24 hr famotidine 20 mg tablet 20 mg PO HS 05/29/21 06/22/21 furosemide 20 mg tablet 20 mg PO DAILY 05/29/21 06/22/21 albuterol sulfate 90 mcg/actuation 2 puff INHALATION Q4 PRN 06/22/21 06/22/21 aerosol inhaler amoxicillin 500 mg capsule 2,000 mg PO UD PRN 06/22/21 06/22/21 calcium carbonate 500 mg calcium 500 mg PO DAILY 06/22/21 06/22/21 (1,250 mg) tablet diclofenac sodium 1 % topical gel 2 g TOPICAL QID PRN 06/22/21 06/22/21 (Arthritis Pain (diclofenac)) loperamide 2 mg capsule 2 mg PO QID PRN 06/22/21 06/22/21 meloxicam 7.5 mg tablet 7.5 mg PO DAILY PRN 06/22/21 06/22/21 metoprolol succinate 25 mg 25 mg PO BID 06/22/21 06/22/21 tablet,extended release 24 hr omeprazole 40 mg capsule,delayed 40 mg PO DAILYBB 06/22/21 06/22/21 release prednisone 5 mg tablet 10 mg PO QAM 06/22/21 06/22/21 Results & Data (ED) Vital Signs Vital Signs - 24 hr 06/22/21 21:09 06/22/21 21:49 06/22/21 22:50 Temperature 37.9 C H Temperature Source Oral Pulse Rate 93 H 98 H Pulse Rate from SpO2 Sensor 99 H Respiratory Rate 24 23 Blood Pressure 127/72 102/84 Blood Pressure Mean 90 90 Blood Pressure Position Semi-fowlers Pulse Oximetry 92 92 92 Oxygen Delivery Method Room Air Room Air Sepsis Recent Fever Within 48 Hours Yes Sepsis New/Unexplained Change in Mental Status No Sepsis Action Taken by Nursing No Action Required 06/22/21 23:00 06/22/21 23:30 Temperature Temperature Source Pulse Rate 90 88 Pulse Rate from SpO2 Sensor Respiratory Rate 24 24 Blood Pressure 128/67 127/60 Blood Pressure Mean 87 82 Blood Pressure Position Pulse Oximetry 94 92 Oxygen Delivery Method Room Air Room Air Sepsis Recent Fever Within 48 Hours Sepsis New/Unexplained Change in Mental Status Sepsis Action Taken by Group Home Medications Current Medication List: was personally reviewed by me Laboratory Data Attestation: I reviewed the patient's lab results. Result diagrams: 06/22/21 21:15 06/22/21 21:15 Lab Results 06/22/21 06/22/21 06/22/21 Range/Units 21:15 21:15 21:15 WBC 12.02 H (4.8-10.8) K/uL RBC 4.05 L (4.2-5.4) M/uL Hgb 12.6 (12.0-16.0) g/dL Hct 39.6 (37-47) % MCV 97.8 (80-100) fL MCH 31.1 (25-34) pg MCHC 31.8 L (32-36) g/dL RDW Std Deviation 57.8 H (36.4-46.3) fL RDW Coeff of Bryan 16.2 H (11.5-14.5) % Plt Count 208 (130-400) K/uL MPV 10.5 H (7.4-10.4) fL Immature Gran % (Auto) 0.2 % Neut % (Auto) 91.1 % Lymph % (Auto) 4.8 % [place] % (Auto) 3.7 % Eos % (Auto) 0.1 % Baso % (Auto) 0.1 % Neut # (Auto) 10.94 H (1.4-6.5) K/uL Lymph # (Auto) 0.58 L (1.2-3.4) K/uL [place] # (Auto) 0.45 (0.11-0.59) K/uL Eos # (Auto) 0.01 (0-0.5) K/uL Baso # (Auto) 0.01 (0-0.2) K/uL Immature Gran # (Auto) 0.03 H (0.00-0.02) K/uL Platelet Estimate Normal (Normal) PT Cancelled INR Cancelled APTT Cancelled PTT Ratio Cancelled Sodium 138 (136-145) mmol/L Potassium 3.9 (3.5-5.1) mmol/L Chloride 102 (98-107) mmol/L Carbon Dioxide 26 (21-32) mmol/L Anion Gap 10 (3-11) BUN 27 H (6-23) mg/dl Creatinine 1.05 (0.6-1.2) mg/dl Est Cr Clr Drug Dosing 40.9 ml/min Est GFR ( Amer) 56.1 ml/min Est GFR (Non-Af Amer) 48.4 ml/min BUN/Creatinine Ratio 25.7 H (10-20) Glucose 116 H (70-99(Fasting)) mg/dl Calcium 9.5 (8.5-10.1) mg/dl Magnesium 1.9 (1.7-2.4) mg/dl Total Bilirubin 1.0 (0.2-1.0) mg/dl AST 19 (13-39) U/L ALT 8 (7-52) U/L Alkaline Phosphatase 38 (34-104) U/L Total Creatine Kinase 112 (26-192) U/L Troponin I High Sens 23.6 H (0-14) pg/ml Total Protein 6.9 (6.0-8.3) gm/dl Albumin 4.2 (3.4-5.0) gm/dl Globulin 2.7 (2.5-4.0) gm/dl Albumin/Globulin Ratio 1.6 (0.9-2) TSH (0.300-4.500) uIu/ml SARS-CoV-2, RNA, NAAT (NEGATIVE) 06/22/21 06/22/21 06/22/21 Range/Units 21:15 22:14 22:30 WBC (4.8-10.8) K/uL RBC (4.2-5.4) M/uL Hgb (12.0-16.0) g/dL Hct (37-47) % MCV (80-100) fL MCH (25-34) pg MCHC (32-36) g/dL RDW Std Deviation (36.4-46.3) fL RDW Coeff of Bryan (11.5-14.5) % Plt Count (130-400) K/uL MPV (7.4-10.4) fL Immature Gran % (Auto) % Neut % (Auto) % Lymph % (Auto) % [place] % (Auto) % Eos % (Auto) % Baso % (Auto) % Neut # (Auto) (1.4-6.5) K/uL Lymph # (Auto) (1.2-3.4) K/uL [place] # (Auto) (0.11-0.59) K/uL Eos # (Auto) (0-0.5) K/uL Baso # (Auto) (0-0.2) K/uL Immature Gran # (Auto) (0.00-0.02) K/uL Platelet Estimate (Normal) PT 11.4 INR 1.1 APTT 21.4 PTT Ratio 0.8 Sodium (136-145) mmol/L Potassium (3.5-5.1) mmol/L Chloride (98-107) mmol/L Carbon Dioxide (21-32) mmol/L Anion Gap (3-11) BUN (6-23) mg/dl Creatinine (0.6-1.2) mg/dl Est Cr Clr Drug Dosing ml/min Est GFR ( Amer) ml/min Est GFR (Non-Af Amer) ml/min BUN/Creatinine Ratio (10-20) Glucose (70-99(Fasting)) mg/dl Calcium (8.5-10.1) mg/dl Magnesium (1.7-2.4) mg/dl Total Bilirubin (0.2-1.0) mg/dl AST (13-39) U/L ALT (7-52) U/L Alkaline Phosphatase (34-104) U/L Total Creatine Kinase (26-192) U/L Troponin I High Sens (0-14) pg/ml Total Protein (6.0-8.3) gm/dl Albumin (3.4-5.0) gm/dl Globulin (2.5-4.0) gm/dl Albumin/Globulin Ratio (0.9-2) TSH 1.115 (0.300-4.500) uIu/ml SARS-CoV-2, RNA, NAAT NEGATIVE (NEGATIVE) Administered Medications Discontinued Medications Sodium Chloride (Nss) 500 mls @ 999 mls/hr IV .Q31M PAULA Stop: 06/22/21 22:30 Last Infusion: 06/22/21 22:50 Dose: 0 mls/hr Documented by: [id number] Admin: 06/22/21 22:19 Dose: 999 mls/hr Documented by: [id number] Oxycodone HCl (Oxycodone Hcl Ir 5 Mg Tab (Immediate Release)) 5 mg PO NOW STA Stop: 06/22/21 23:57 Last Admin: 06/23/21 00:22 Dose: Not Given Documented by: [id number] Imaging Data Attestation: I personally reviewed and interpreted this imaging study as philly ws: My Impression: There is no definite1 view chest x-ray was obtained in the emergency department. My interpretation is cardiomegaly. Filtrate. Scarring was noted at the right base. This was compared to a chest x-ray from October 312020. There is no significant change noted. Discharge Plan Visit Data Chief Complaint: Weakness ED Provider: Michael Navarrete Discharge Problem: Weakness, Fever Patient Disposition: Being Evaluated by Hospitalist Forms Stand Alone Forms: My [facility] Prescriptions Prescriptions: No Action clonazepam 0.5 mg tablet 0.5 mg PO HS PRN (Reason: Anxiety) RF: 0 rosuvastatin [Crestor] 40 mg tablet 40 mg PO QPM RF: 0 aspirin [Adult Low Dose Aspirin] 81 mg tablet,delayed release (DR/EC) 81 mg PO MOWEFR RF: 0 losartan [Cozaar] 50 mg tablet 50 mg PO DAILY RF: 0 baclofen 10 mg tablet 10 mg PO HS RF: 0 famotidine 20 mg tablet 20 mg PO HS RF: 0 furosemide 20 mg tablet 20 mg PO DAILY RF: 0 simethicone 125 mg Tablet,Chewable 125 mg PO BID PRN (Reason: Unknown) RF: 0 Xeljanz XR 11 mg Tablet Extended Release 24 Hr 11 mg PO DAILY RF: 0 gabapentin 300 mg capsule 300 mg PO AMHS RF: 0 isosorbide mononitrate 30 mg tablet extended release 24 hr 60 mg PO QAM RF: 0 omeprazole 40 mg capsule,delayed release(DR/EC) 40 mg PO DAILYBB RF: 0 prednisone 5 mg tablet 10 mg PO QAM RF: 0 meloxicam 7.5 mg tablet 7.5 mg PO DAILY PRN (Reason: Pain) RF: 0 metoprolol succinate 25 mg tablet extended release 24 hr 25 mg PO BID RF: 0 diclofenac sodium [Arthritis Pain (diclofenac)] 1 % gel 2 g topical QID PRN (Reason: Pain) RF: 0 albuterol sulfate 90 mcg/actuation HFA aerosol inhaler 2 puff INHALATION Q4 PRN (Reason: Wheezing) RF: 0 amoxicillin 500 mg capsule 2,000 mg PO UD PRN (Reason: Prophylaxis) RF: 0 loperamide 2 mg Capsule 2 mg PO QID PRN (Reason: Diarrhea) RF: 0 calcium carbonate [Calcium 500] 500 mg calcium (1,250 mg) Tablet 500 mg PO DAILY RF: 0 Referrals Referrals: Rafael Wade MD [Primary Care Provider] - Discharge Problem: Fever Qualifiers: Fever type: unspecified Qualified Code(s): R50.9 - Fever, unspecified
[2021-06-22] MEDS ORDERED: oxyCODONE HCL IR 5 MG TAB (IMMEDIATE RELEASE) PO STA (23:56)
[2021-06-23] MEDS ORDERED: cefTRIAXone SODIUM 1,000 MG/50 ML BAG IV STA (00:13)
[2021-06-23] MEDS ORDERED: KETOROLAC TROMETHAMINE 15 MG/ML VIAL IV ONE (01:34)
[2021-06-23] MEDS ORDERED: ALBUTEROL HFA 8 GM INHALER INH PRN (03:10)
[2021-06-23] MEDS ORDERED: DICLOFENAC SOD 1% GEL 100 GM TUBE EXT PRN (03:10)
[2021-06-23] MEDS ORDERED: POLYETHYLENE (MIRALAX) 17 GM PACK PO PRN (03:10)
[2021-06-23] MEDS ORDERED: clonazePAM 0.5 MG TAB PO PRN (03:10)
[2021-06-23] MEDS ORDERED: MELOXICAM 7.5 MG TAB PO PRN (03:10)
[2021-06-23] MEDS ORDERED: SIMETHICONE 80 MG CHEW PO PRN (03:10)
[2021-06-23] MEDS ORDERED: ONDANSETRON INJ 2 MG/ML 2 ML VIAL IV PRN (03:10)
[2021-06-23] MEDS ORDERED: ACETAMINOPHEN 325 MG TAB ONE (03:33)
[2021-06-23] MEDS: ACETAMINOPHEN 325 MG TAB PO PRN ×3 (03:35→21:35)
--- NOTE | 2021-06-23 04:17 | History and Physical Report ---
DATE OF ADMISSION: 06/23/2021. CHIEF COMPLAINT: Weakness, ambulatory dysfunction. HISTORY OF PRESENT ILLNESS: This is an 86-year-old female with past medical history significant for hyperlipidemia, history of abdominal aortic aneurysm, history of CAD status post stents, history of hypertension, paroxysmal VT, supraventricular tachycardia, chronic constipation, GERD, chronic kidney disease stage III, generalized osteoarthritis, osteoporosis, polyneuropathy, rheumatoid arthritis, status post laminectomy syndrome who lives at home with her , comes because of weakness. The patient states she could not get up from her legs, legs are very weak and also has back pain. She had back pain for some time, but now it is worse. As she was not able to ambulate she comes to the ER. She was spiking temperature in the ER. White count was 12. Rest of the labs were okay. COVID is negative. Awaiting urine sample. Denies any chest pain, no shortness of breath, no cough, no nausea, no abdominal pain. Normal bowel and bladder movements. No headache, no blurred visions, no earache, no runny nose, no sore throat. Resting comfortably and hemodynamically stable. ALLERGIES: MORPHINE, SHRIMP, SULFA ANTIBIOTICS, BENZONATATE, CODEINE, LISINOPRIL, ADHESIVE, TRAMADOL. PAST MEDICAL HISTORY: As mentioned above. PAST SURGICAL HISTORY: Cerebral angiography, colonoscopy, cardiac catheterization, status post stent placement, EGD with endoscopic ultrasound, catheter EP study, tubal ligation, knee arthroscopy, lumbar hemilaminectomy, Pap screen, cataract surgery, tonsillectomy, adenoidectomy, repair of bladder and vaginal cystocele, right shoulder arthroscopy, vaginal hysterectomy. MEDICATIONS: The patient is on albuterol 2 puffs inhalation q. 4 hours p.r.n., amoxicillin p.r.n., aspirin 81 mg p.o. daily, baclofen 10 mg p.o. at bedtime, calcium 500 mg p.o. daily, Klonopin 0.5 mg p.o. at bedtime p.r.n., diclofenac sodium 2 g topical q.i.d. p.r.n., famotidine 20 mg p.o. at bedtime p.r.n., Lasix 20 mg p.o. daily, gabapentin 300 mg p.o. b.i.d., isosorbide mononitrate 60 mg p.o. a.m., loperamide 2 mg p.o. q.i.d. p.r.n., losartan 50 mg p.o. daily, meloxicam 7.5 mg p.o. daily p.r.n., metoprolol succinate 25 mg p.o. b.i.d., omeprazole 40 mg p.o. daily, prednisone 10 mg p.o. a.m., lovastatin 40 mg p.o. daily, simethicone p.r.n., Xeljanz 11 mg p.o. daily. FAMILY HISTORY: Significant for mother has diabetes, high cholesterol. Father has OR. SOCIAL HISTORY: , lives with . Former smoker, quit in 1975, smoked 1 pack a day for 20 years. Alcohol, a glass of wine. No drug use. REVIEW OF SYSTEMS: As per HPI. Rest of review of systems is negative. PHYSICAL EXAMINATION: GENERAL: The patient is of moderate build, not in acute distress. VITAL SIGNS: Temperature T-max 37.9, pulse 88, respiratory rate 24, blood pressure 127/60, oxygen 92% on room air. HEENT: Pupils equal, round and reactive to light. Oral mucosa moist. NECK: No JVD. CARDIOVASCULAR: S1 and S2 heard. Regular rate and rhythm. No murmur, no gallop. RESPIRATORY SYSTEM: Normal AP diameter. No accessory muscle use. No wheezing, no crackles. ABDOMEN: Soft, bowel sounds present, nontender, no distention. CENTRAL NERVOUS SYSTEM: Alert and oriented. Speech is clear. No facial droop. Insight is good. Obeys simple commands. Moves extremities. EXTREMITIES: Lower extremity weakness present and neuropathy present. Superficial ulcer seen on the shins and toes. LABORATORY DATA: WBC 12, hemoglobin 12.6, hematocrit 39.6, platelets 208, PT 11.4, INR 1.1, APTT 21.4. Sodium 138, potassium 3.9, chloride 102, bicarbonate 26, BUN 27, creatinine 1.05. Serum glucose 116, calcium 9.5, magnesium 1.9, total bilirubin 1, AST 19, ALT 8, alkaline phosphatase 38. Troponin-1 1. High sensitivity 26.3. TSH 1.15. SARS-CoV-2 RNA negative. IMAGING DATA: Chest x-ray, no acute findings. EKG: Sinus rhythm with PVCs at a rate of 100, nonspecific ST abnormalities. ASSESSMENT AND PLAN: This is an 86-year-old female presents with weakness. 1. Weakness and ambulatory dysfunction, back pain which was chronic, getting worse, mild temperature spike, awaiting urinalysis. Empirically on IV Rocephin. We will follow CT scan of the lumbar spine. If any concern, we will get MRI scan. PT/OT. Monitor in the medical floor. 2. History of coronary artery disease status post stent, on aspirin, statin, beta irlanda, Imdur. 3. Mild elevation of troponin. We will follow the serial enzymes. 4. History of rheumatoid arthritis, on Xeljanz, prednisone, pain medications. 5. History of paroxysmal ventricular tachycardia, on metoprolol. 6. History of abdominal aortic aneurysm, needs follow up. 7. Chronic constipation, on stool softeners. 8. Chronic kidney disease stage III. Presently with creatinine of 1. We will follow the repeat labs. 9. Gastroesophageal reflux disease, on omeprazole. 10. Hyperlipidemia, on statin. 11. Deep venous thrombosis prophylaxis: We will place her on heparin subcutaneous. DISPOSITION: Closely monitor and observe in medical floor. PT/OT prior to discharge. Social service to help with discharge planning. Job ID: [id number] [facility] CENTERAniya
[2021-06-23] MEDS: PANTOprazole 40 MG TAB PO SCH (05:39)
[2021-06-23] MEDS: HEPARIN SOD 5,000 UNIT/0.5 ML VIAL SQ SCH ×2 (06:11→15:04)
[2021-06-23 07:25] LABS: Basophils # (auto) 0.01 K/uL (0-0.2); Basophils % (auto) 0.1 %; Eosinophils # (auto) 0.04 K/uL (0-0.5); Eosinophils % (auto) 0.3 %; Hemoglobin 11.1 g/dL (12.0-16.0); Immature Granulocytes # (auto) 0.06 K/uL (0.00-0.02); Immature Granulocytes % (auto) 0.5 %; Lymphocytes # (auto) 0.89 K/uL (1.2-3.4); Lymphocytes % (auto) 7.8 %; Mean Corpuscular Hemoglobin 32.1 pg (25-34); Mean Corpuscular Hgb Conc 32.6 g/dL (32-36); Mean Corpuscular Volume 98.3 fL (80-100); Mean Platelet Volume 9.8 fL (7.4-10.4); Monocytes # (auto) 0.56 K/uL (0.11-0.59); Monocytes % (auto) 4.9 %; Neutrophils % (auto) 86.4 %; Platelet Count 181 K/uL (130-400); RDW Coefficient of Variation 16.4 % (11.5-14.5); RDW Standard Deviation 59.4 fL (36.4-46.3); Red Blood Count 3.46 M/uL (4.2-5.4); White Blood Count 11.46 K/uL (4.8-10.8)
--- NOTE | 2021-06-23 07:39 | XRay Report ---
SINGLE VIEW CHEST CLINICAL HISTORY: Generalized weakness. FINDINGS: An AP, portable, upright chest radiograph is compared to study dated 10/31/2020 and correlat ed with chest CT dated 10/27/2020. An electronic device projects over the lower chest. The heart is en larged noting atherosclerotic calcification of the thoracic aorta. The pulmonary vasculature is nonco ngested. Chronic interstitial thickening is similar to previous foci of scarring/atelectasis are seen throughout both lungs. No airspace consolidation typical for pneumonia or large pleural effusion is identified. No pneumothorax is seen. The skeletal structures are osteopenic. The bony thorax is gross ly intact. A right shoulder arthroplasty is in place. Advanced arthritic change is seen in the left s houlder. Fusion hardware is partially visualized in the lumbar spine. IMPRESSION: Cardiomegaly with no acute cardiopulmonary abnormality. ACT 112: Negative or not required by law. Electronically signed by: Preston Hammonds M.D. 06/23/2021 7:38 AM
[2021-06-23 08:05] LABS: Anion Gap 9 (3-11); BUN Creatinine Ratio 25.7 (10-20); Blood Urea Nitrogen 26 mg/dl (6-23); Calcium 8.4 mg/dl (8.5-10.1); Carbon Dioxide 23 mmol/L (21-32); Chloride 106 mmol/L (98-107); Creatinine Clr Calc Pharmacy 42.2 ml/min; Est GFR (African American) 58.8 ml/min; Est GFR (Non-African American) 50.7 ml/min; Glucose 94 mg/dl (70-99(Fasting)); Magnesium 1.9 mg/dl (1.7-2.4); Sodium 138 mmol/L (136-145)
[2021-06-23 09:39] LABS: Appearance Urine Clear (Clear); Bacteria Urine Automated 4+ (Negative); Bilirubin Urine Negative (Negative); Blood Urine 3+ (Negative); Color Urine Yellow; Epithelial Cell Urine Auto 0-5 /lpf (0-5); Glucose Urine UA Negative (Negative); Ketones Urine Trace (Negative); Leukocyte Esterase Urine 1+ (Negative); Nitrite Urine Positive (Negative); Protein Urine 2+ (Negative); RBC Urine Automated >30 /hpf (0-4); Specific Gravity Urine 1.019 (1.000-1.030); Urobilinogen Urine Negative (Negative); WBC Urine Automated >30 /hpf (0-5)
[2021-06-23] MEDS: GABAPENTIN 300 MG CAP PO SCH ×2 (09:55→21:38)
[2021-06-23] MEDS: FUROSEMIDE 20 MG TAB PO SCH (09:55)
[2021-06-23] MEDS: ISOSORBIDE MONO EXTENDED REL 60 MG TABCR PO SCH (09:55)
[2021-06-23] MEDS: METOPROLOL SUCC 25MG EXT REL TAB PO SCH ×2 (09:55→21:41)
[2021-06-23] MEDS: CALCIUM CARBONATE 1250MG TAB PO SCH (09:55)
[2021-06-23] MEDS: LOSARTAN POTASSIUM 50 MG TAB PO SCH (09:55)
[2021-06-23] MEDS: predniSONE 10 MG TABLET PO SCH (09:55)
[2021-06-23] MEDS: ASPIRIN 81 MG ECTAB PO SCH (09:55)
--- NOTE | 2021-06-23 10:41 | CT Scan Report ---
CT SCAN OF THE LUMBAR SPINE WITHOUT IV CONTRAST CLINICAL HISTORY: Low back pain. COMPARISON STUDY: CT scan of the lumbar spine dated 10/17/2020. TECHNIQUE: CT scan of the lumbar spine is performed from the lower thoracic spine to the sacrum. Imag es are reviewed in the axial, sagittal, and coronal planes. IV contrast was not administered for this examination. A dose lowering technique was utilized adhering to the principles of ALARA. The examina tion is degraded by streak artifact from metallic spinal hardware. CT DOSE: 662.11 mGy.cm FINDINGS: The skeletal structures are osteopenic. There is a severe chronic compression deformity of L1 with minimally retropulsed fragments. There are mild to moderate chronic compression deformities o f L2, L3, and L4. These are unchanged from 10/17/2020. Vertebral body height is maintained at L5. There is a moderate acute to subacute appearing compression fracture of T12. This is new from 10/17/2020 and there are minimally retropulsed fragments by up to 3 mm. Mild paravertebral edema is noted at this l evel. Again seen is postoperative change from laminectomy and posterior fusion from L2 to L4. Ventric ular screws are present at all levels. The orthopedic hardware appears intact. Lucency around the rig ht interpedicular screw at L3 and both interpedicular screws at L4 suggests loosening. A hemangioma i s noted in the body of L5. No lytic or blastic lesion is seen. There is straightening of the lumbar l ordosis. Mild lumbar dextrocurvature centered at L2. The transverse processes appear intact. There is no evidence of spondylolysis. There is moderate disc space narrowing at L4-L5 and L5-S1 with posteri or disc osteophyte complexes at these levels. Only mild degenerative disc space narrowing is seen at the remaining lumbar levels. Facet arthropathy is noted in the lower lumbar region. Imaged portions o f the sacrum and bony pelvis appear intact. Degenerative change is noted in the sacroiliac joints. A sacral stimulator lead is partially imaged. There is marked fatty atrophy of the paraspinous musculat ure. There is advanced atherosclerotic calcification of the abdominal aorta. An infrarenal abdominal aortic aneurysm measures up to 3.7 cm. No retroperitoneal lymphadenopathy is seen. There are chronic/ healed posterior rib fractures. IMPRESSION: 1. There is no evidence of acute fracture or malalignment involving the lumbar spine. 2. There is a moderate acute to subacute appearing compression fracture of T12 with minimally retropu lsed fragments. This is new from 10/17/2020. Correlate for point tenderness. 3. Chronic lumbar compression deformities as above. These are similar to previous. 4. Osteopenia with postoperative and spondylotic changes as above. 5. Lucency around the right interpedicular screw at L3 and both interpedicular screws at L4 suggests loosening. 6. There is a 3.7 cm infrarenal abdominal aortic aneurysm. 7. Additional findings as above. ACT 112: Negative or not required by law. Dictated: 06/23/2021 9:51 AM Transcribed: 06/23/2021 10:27 AM Lauren [id number] [email or web address] Electronically signed by: Preston Hammonds M.D. 06/23/2021 10:39 AM
--- NOTE | 2021-06-23 13:20 | Communication Note ---
Date of Service: June 23, 2021 86-year-old woman with history of abdominal aortic aneurysm, CAD status post stents, hypertension, proximal VT, supraventricular tachycardia, GERD, CKD 3, osteoarthritis, osteoporosis polyneuropathy, rheumatoid arthritis who presents with weakness in the legs. Patient reported to me that she usually uses walker for ambulation at home but over the past day or 2 she has had worsening weakness in the legs to the point where she is not able to move her legs as she used to. Denies any fevers, chills, cough, shortness of breath, nausea, vomiting. Reported difficulty urinating over the past day. Denied dysuria, frequency or urgency. RN also reported patient has been retaining since admission and required straight catheterization. Exam is notable for elderly obese woman in no obvious distress, prized 3+ in both lower extremities, sensory deficits to touch and left leg [patient reports this is chronic] Lab work notable for troponin of 26-37-28 [flat] Lumbar CT noted a moderate acute to subacute appearing compression fracture of T12 with minimally repeat Trope post fragments new from 10/17/2020, chronic lumbar compression deformities, lucency around the right interpedicular screw at L3 and both interpedicular screws at L4 suggesting loosening. Ambulatory dysfunction Worsening weakness of lower extremities Acute to subacute compression fracture of T12. Patient's history and symptoms concerning for possible neuropathy from fracture//compression. Will get MRI of the thoracolumbar spine for further evaluation. Will appreciate orthopedic spine evaluation by Dr. Dukes. Patient's UA also suggestive of possible UTI. Continue ceftriaxone for now and follow-up urine culture. Consider urinary retention we will put a Kinney catheter in. Hold sq hep for DVT ppx in case surgical treatment is needed Agree with other plans as detailed in H&P by Dr. Kaufman this morning
[2021-06-23] MEDS ORDERED: LORazepam 0.5 MG TAB PO PRN (15:27)
[2021-06-23] MEDS: MELATONIN 3 MG TAB PO PRN (21:34)
[2021-06-23] MEDS: BACLOFEN 10 MG TAB PO SCH (21:37)
[2021-06-23] MEDS: FAMOTIDINE 20 MG TAB PO SCH (21:37)
[2021-06-23] MEDS: ROSUVASTATIN CALCIUM 20 MG TAB PO SCH (21:41)
--- NOTE | 2021-06-23 22:07 | Electrocardiogram Report ---
Test Reason : Blood Pressure : / mmHG Vent. Rate : 100 BPM Atrial Rate : 091 BPM P-R Int : 138 ms QRS Dur : 076 ms QT Int : 328 ms P-R-T Axes : 048 012 -10 degrees QTc Int : 423 ms Sinus rhythm with Premature supraventricular complexes Nonspecific T wave abnormality Abnormal ECG When compared with ECG of 27-OCT-2020 17:16, Premature supraventricular complexes are now Present Vent. rate has increased BY 52 BPM Non-specific change in ST segment in Anterior leads Nonspecific T wave abnormality now evident in Inferior leads Nonspecific T wave abnormality, worse in Anterolateral leads Confirmed by Miguel Salinas ([id number]) on 06/23/2021 10:07:10 PM Referred By: REFERRED SELF Confirmed By:Miguel Salinas
[2021-06-23] MEDS: cefTRIAXone SODIUM 2,000 MG in DEXTROSE 5% 50 ML IV SCH (22:28)
[2021-06-24] MEDS: PANTOprazole 40 MG TAB PO SCH (05:37)
[2021-06-24 06:56] LABS: Hematocrit (blood only) 33.9 % (37-47); Hemoglobin 10.9 g/dL (12.0-16.0); Mean Corpuscular Hemoglobin 31.2 pg (25-34); Mean Corpuscular Hgb Conc 32.2 g/dL (32-36); Mean Corpuscular Volume 97.1 fL (80-100); Mean Platelet Volume 9.8 fL (7.4-10.4); Platelet Count 178 K/uL (130-400); RDW Coefficient of Variation 16.1 % (11.5-14.5); RDW Standard Deviation 56.7 fL (36.4-46.3); Red Blood Count 3.49 M/uL (4.2-5.4); White Blood Count 11.62 K/uL (4.8-10.8)
[2021-06-24 07:16] LABS: BUN Creatinine Ratio 23.7 (10-20); Calcium 9.1 mg/dl (8.5-10.1); Creatinine Clr Calc Pharmacy 45.9 ml/min; Potassium 3.7 mmol/L (3.5-5.1)
[2021-06-24] MEDS: CALCIUM CARBONATE 1250MG TAB PO SCH (09:38)
[2021-06-24] MEDS: FUROSEMIDE 20 MG TAB PO SCH (09:39)
[2021-06-24] MEDS: GABAPENTIN 300 MG CAP PO SCH ×2 (09:39→20:18)
[2021-06-24] MEDS: METOPROLOL SUCC 25MG EXT REL TAB PO SCH ×2 (09:40→20:18)
[2021-06-24] MEDS: ISOSORBIDE MONO EXTENDED REL 60 MG TABCR PO SCH (09:40)
[2021-06-24] MEDS: LOSARTAN POTASSIUM 50 MG TAB PO SCH (09:40)
[2021-06-24] MEDS: predniSONE 10 MG TABLET PO SCH (09:41)
--- NOTE | 2021-06-24 11:29 | Orthopedic Consultation ---
Date of Consultation June 24, 2021 Assessment & Plan (1) T12 compression fracture: Patient does have what appears to be an acute T12 compression fracture. We have a long discussion today regarding her health history and treatment plan. She obviously is a very poor surgical candidate. I am concerned she has advanced lumbar spinal stenosis contributing to her leg weakness and symptoms. She however is not a candidate for a large lumbar procedure. We discussed possible kyphoplasty of T12 however I would prefer a course of bedrest with slow transition to bed to chair and ultimately ambulation. This hopefully will heal on their own. A kyphoplasty of normally would subject her to anesthesia and the risks inherent to this she is at risk for postoperative complication including adjacent level compression fracture secondary to severe osteoporosis. She understands agrees and is comfortable with a nonoperative plan. History of Present Illness Reason for Consultation: Back pain with bilateral leg weakness Attending Physician: Ely Wood MD History of Present Illness This is an 86-year-old female known to me from evaluations in the past. She now presents with worsening back pain with bilateral leg weakness. This has been progressive. CAT scan does demonstrate evidence of T12 compression fracture which appears to be acute. She states she has pain in the back with weakness to bilateral extremities. She states this has been progressive since she had COVID. She does have a history of 2 lumbar surgeries. She does have known lumbar spinal stenosis from MRI in 2019. She is comfortable at this time at rest but does note discomfort across the lumbar spine with logroll and sitting up in bed. She does have known advanced peripheral neuropathy. She has a bowel stem in place and cannot have an MRI until the controller is located to deactivate the device. Allergies Allergy/AdvReac Type Severity Reaction Status Date / Time morphine Allergy Severe SHORTNESS Verified 06/22/21 21:55 OF BREATH lisinopril Allergy Intermediate GI SYMPTOMS Verified 06/23/21 15:30 shrimp Allergy Intermediate GI SYMPTOMS Verified 06/23/21 15:30 Sulfa (Sulfonamide Allergy Intermediate HIVES Verified 06/22/21 21:55 Antibiotics) adhesive AdvReac Intermediate TAPE - RASH Verified 06/22/21 21:55 tramadol AdvReac Intermediate Nausea Verified 06/21/21 11:04 benzonatate AdvReac Mild GI UPSET Verified 06/23/21 15:30 codeine AdvReac Mild NAUSEA Verified 06/23/21 15:30 Home Medications Medication Instructions Recorded Confirmed Type clonazepam 0.5 mg tablet 0.5 mg PO HS PRN tab 11/14/17 06/22/21 History rosuvastatin 40 mg tablet (Crestor) 40 mg PO QPM 11/14/17 06/22/21 History aspirin 81 mg tablet,delayed 81 mg PO MOWEFR tab 02/06/18 06/22/21 History release (Adult Low Dose Aspirin) gabapentin 300 mg capsule 300 mg PO AMHS 12/25/18 06/22/21 History simethicone 125 mg chewable tablet 125 mg PO BID PRN 12/25/18 06/22/21 History tofacitinib 11 mg tablet,extended 11 mg PO DAILY 12/25/18 06/22/21 History release 24 hr (Xeljanz XR) baclofen 10 mg tablet 10 mg PO HS tab 07/31/19 06/22/21 History losartan 50 mg tablet (Cozaar) 50 mg PO DAILY tab 06/21/20 06/22/21 History isosorbide mononitrate 30 mg 60 mg PO QAM 10/17/20 06/22/21 History tablet,extended release 24 hr famotidine 20 mg tablet 20 mg PO HS 05/29/21 06/22/21 History furosemide 20 mg tablet 20 mg PO DAILY 05/29/21 06/22/21 History albuterol sulfate 90 mcg/actuation 2 puff INHALATION Q4 PRN 06/22/21 06/22/21 History aerosol inhaler amoxicillin 500 mg capsule 2,000 mg PO UD PRN 06/22/21 06/22/21 History calcium carbonate 500 mg calcium 500 mg PO DAILY 06/22/21 06/22/21 History (1,250 mg) tablet diclofenac sodium 1 % topical gel 2 g TOPICAL QID PRN 06/22/21 06/22/21 History (Arthritis Pain (diclofenac)) loperamide 2 mg capsule 2 mg PO QID PRN 06/22/21 06/22/21 History meloxicam 7.5 mg tablet 7.5 mg PO DAILY PRN 06/22/21 06/22/21 History metoprolol succinate 25 mg 25 mg PO BID 06/22/21 06/22/21 History tablet,extended release 24 hr omeprazole 40 mg capsule,delayed 40 mg PO DAILYBB 06/22/21 06/22/21 History release prednisone 5 mg tablet 10 mg PO QAM 06/22/21 06/22/21 History Patient History Medical History Acquired right foot drop Arachnoiditis CAD (coronary artery disease) Cervical radiculopathy Degenerative joint disease of knee Dyslipidemia Facet syndrome, lumbar Greater trochanteric bursitis Hypertension Immunosuppression due to chronic steroid use Left knee pain Lumbago Lumbar compression fracture L1 acute on chronic MRI 03/[address] 10/17/2020 Lumbar postlaminectomy syndrome Lumbar radiculitis Lumbar spinal stenosis Myocardial infarct, old Osteoarthritis Osteoporosis Peripheral neuropathy Pes anserine bursitis Pes anserinus tendonitis of right lower extremity Postoperative seroma L2-4 Rheumatoid arthritis Rheumatoid arthritis of shoulder Right knee pain Status post TKA taking shots due to bursitis Right knee pain Surgical History History of adenoidectomy History of angioplasty History of breast biopsy History of hysterectomy History of loop recorder follows with Dr Bergeron History of lumbosacral spine surgery flexible rainer and johann charlton History of PTCA History of tonsillectomy History of total shoulder replacement Right S/P total knee arthroplasty Right Status post right knee replacement Family History Father Myocardial infarction Brother Myocardial infarction Other Family history non-contributory Denies family history of Ovarian cancer Prostate cancer Breast cancer Colorectal cancer Social History Smoking Status: Former smoker Second Hand Exposure: No; Hx Alcohol Use: Yes Alcohol type: wine Hx Substance Use: No Preferred Language: Syriac Communication Ability: Effective Visual Impairment: No Limitations Hearing Ability: Normal 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 She does have limited dorsi flexion she has some limited sensation of the feet bilaterally. There is evidence of peripheral edema. Results & Data ([facility]) Vital Signs (Past 12 Hours) Vital Signs Temp Pulse Resp BP BP Pulse Ox 06/24/21 09:35 72 114/63 06/24/21 07:41 158/75 H 06/24/21 07:14 36.7 C 64 18 161/72 H 97
--- NOTE | 2021-06-24 13:09 | Hospitalist Progress Note ---
Date of Service June 24, 2021 Assessment & Plan (1) Weakness: (2) T12 compression fracture: (3) Fever: Plan: Patient presented with worsening leg weakness Has chronic back pain Lumbar CT showed acute to subacute T12 fracture Patient evaluated by Orthopedic spine surgeon. She declined surgical management Will manage conservatively. Cancel MRI PT/OT evaluation She had urinary retention yesterday and higgins was inserted Will remove higgins tomorrow for voiding trial Had fevers. Last was yesterday UA suggestive of possible UTI Continue empirical antibiotics and follow up urine cultures Continue home losartan, metoprolol, imdur and lasix for CAD, paroxysmal vent tach and hypertesnion Continue PPI for GERD DVT ppx - hep sq Admission and Anticipated Discharge Date Admission Date: June 23, 2021 Subjective 86-year-old woman with history of abdominal aortic aneurysm, CAD status post stents, hypertension, proximal VT, supraventricular tachycardia, GERD, CKD 3, osteoarthritis, osteoporosis polyneuropathy, rheumatoid arthritis who presents with weakness in the legs. Patient seen and examined Still reports weakness in legs but stated she is feeling better today Has chronic low back pain Denied chest pain, cough, SOB, palpitation Denied nausea, vomiting, abd pain Fever is resolved Physical Exam Constitutional: + well hydrated and + obese; no acute distress Eyes: PERRL, conjunctivae normal, anicteric sclerae ENMT: external ear and nose normal, oropharynx normal Respiratory: normal respiratory effort, lungs clear to auscultation Cardiovascular: Rate/Rhythm: regular rate and regular rhythm S1 S2 Gastrointestinal (Abdomen): normal bowel sounds, soft, nontender, no hepatosplenomegaly Musculoskeletal: Power is 3+5 in lower extremities Limited dorsiflexion +pedal edema Neurologic: PERRL, EOMI, accommodation nl, no face palsy, no dysarthria Sensory deficits on feet (L>R) Results & Data Results & Data ([facility]) Vital Signs (Past 12 Hours) Vital Signs Temp Pulse Resp BP BP Pulse Ox 06/24/21 09:35 72 114/63 06/24/21 07:41 158/75 H 06/24/21 07:14 36.7 C 64 18 161/72 H 97 Laboratory Results Abnormal lab results 06/23/21 06/24/21 06/24/21 Range/Units 19:08 06:35 06:35 WBC 11.62 H (4.8-10.8) K/uL RBC 3.49 L (4.2-5.4) M/uL Hgb 10.9 L (12.0-16.0) g/dL Hct 33.9 L (37-47) % RDW Std Deviation 56.7 H (36.4-46.3) fL RDW Coeff of Bryan 16.1 H (11.5-14.5) % BUN/Creatinine Ratio 23.7 H (10-20) Glucose 114 H (70-99(Fasting)) mg/dl Troponin I High Sens 24.6 H (0-14) pg/ml (1) Fever Fever type: unspecified Qualified Code(s): R50.9 - Fever, unspecified
[2021-06-24] MEDS: BACLOFEN 10 MG TAB PO SCH (20:17)
[2021-06-24] MEDS: FAMOTIDINE 20 MG TAB PO SCH (20:18)
[2021-06-24] MEDS: ROSUVASTATIN CALCIUM 20 MG TAB PO SCH (20:19)
[2021-06-24] MEDS: cefTRIAXone SODIUM 2,000 MG in DEXTROSE 5% 50 ML IV SCH (20:30)
[2021-06-24] MEDS: MELATONIN 3 MG TAB PO PRN (21:21)
[2021-06-24] MEDS: HEPARIN SOD 5,000 UNIT/0.5 ML VIAL SQ SCH (22:15)
[2021-06-25] MEDS: HEPARIN SOD 5,000 UNIT/0.5 ML VIAL SQ SCH ×3 (05:46→21:24)
[2021-06-25] MEDS: PANTOprazole 40 MG TAB PO SCH (05:46)
[2021-06-25 07:06] LABS: Hematocrit (blood only) 34.1 % (37-47); Mean Corpuscular Hemoglobin 31.4 pg (25-34); Mean Corpuscular Hgb Conc 32.3 g/dL (32-36); Mean Corpuscular Volume 97.4 fL (80-100); Mean Platelet Volume 10.5 fL (7.4-10.4); Platelet Count 200 K/uL (130-400); RDW Standard Deviation 57.1 fL (36.4-46.3); White Blood Count 10.07 K/uL (4.8-10.8)
[2021-06-25 07:33] LABS: BUN Creatinine Ratio 27.7 (10-20); Creatinine Clr Calc Pharmacy 51.4 ml/min; Est GFR (African American) 74.5 ml/min; Est GFR (Non-African American) 64.3 ml/min; Potassium 3.6 mmol/L (3.5-5.1)
[2021-06-25] MEDS: GABAPENTIN 300 MG CAP PO SCH ×2 (08:52→20:44)
[2021-06-25] MEDS: CALCIUM CARBONATE 1250MG TAB PO SCH (08:52)
[2021-06-25] MEDS: predniSONE 10 MG TABLET PO SCH (08:53)
[2021-06-25] MEDS: FUROSEMIDE 20 MG TAB PO SCH (08:53)
[2021-06-25] MEDS: ISOSORBIDE MONO EXTENDED REL 60 MG TABCR PO SCH (08:53)
[2021-06-25] MEDS: METOPROLOL SUCC 25MG EXT REL TAB PO SCH ×2 (08:54→20:42)
[2021-06-25] MEDS: LOSARTAN POTASSIUM 50 MG TAB PO SCH (08:54)
--- NOTE | 2021-06-25 11:09 | Orthopedic Progress Note ---
Date of Service June 25, 2021 Assessment & Plan (1) T12 compression fracture: Plan: At this time she seems to be tolerating transfers. We will hopefully be able to initiate ambulation at least for short distances. Again we had a lengthy discussion today regarding possible surgical intervention. She is quite hesitant in light of her overall physical condition. I would agree with her concerns. Would like to avoid surgery if possible. I did explain to her that a component of her leg weakness and pain is related to lumbar spinal stenosis as well as a her peripheral neuropathy. Admission and Anticipated Discharge Date Admission Date: June 24, 2021 Subjective Patient's back pain is controlled. She still notes leg numbness and weakness. Physical Exam Physical Exam: On exam she is in the chair at the bedside. Appears comfortable. Results & Data ([facility]) Vital Signs (Past 12 Hours) Vital Signs Temp Pulse Resp BP Pulse Ox 06/25/21 08:51 76 124/70 06/25/21 07:48 36.5 C 66 16 132/73 94
--- NOTE | 2021-06-25 12:03 | Hospitalist Progress Note ---
Date of Service June 25, 2021 Assessment & Plan (1) Weakness: (2) T12 compression fracture: (3) Fever: Plan: Patient presented with worsening leg weakness Has chronic back pain Lumbar CT showed acute to subacute T12 fracture Patient evaluated by Orthopedic spine surgeon. She declined surgical management Will manage conservatively per patient's request PT/OT evaluations noted. Rehab recommended Check Vit D level She had urinary retention on 06/23/21 and higgins was inserted Remove higgins and do voiding trial Had fevers. Last was 2 days ago UA suggestive of possible UTI Culture growing multiple carmen Will continue ceftriaxone for today. Plan to deescalate to po tomorrow to complete treatment for UTI Continue home losartan, metoprolol, imdur and lasix for CAD, paroxysmal vent tach and hypertension Continue PPI for GERD DVT ppx - hep sq CM to work on placement tomorrow Admission and Anticipated Discharge Date Admission Date: June 24, 2021 Subjective 86-year-old woman with history of abdominal aortic aneurysm, CAD status post stents, hypertension, proximal VT, supraventricular tachycardia, GERD, CKD 3, osteoarthritis, osteoporosis polyneuropathy, rheumatoid arthritis who presents with weakness in the legs. Patient seen and examined Reports weakness in legs is improved. Sitting in chair today Has chronic low back pain Denied chest pain, cough, SOB, palpitation Denied nausea, vomiting, abd pain Fever is resolved Physical Exam Constitutional: + well hydrated and + obese; no acute distress Eyes: PERRL, conjunctivae normal, anicteric sclerae ENMT: external ear and nose normal, oropharynx normal Respiratory: normal respiratory effort, lungs clear to auscultation Cardiovascular: Rate/Rhythm: regular rate and regular rhythm S1 S2 Gastrointestinal (Abdomen): normal bowel sounds, soft, nontender, no hepatosplenomegaly Musculoskeletal: Able to move legs better today Pedal edema Neurologic: PERRL, EOMI, accommodation nl, no face palsy, no dysarthria Psychiatric: A+Ox3, euthymic affect Results & Data Results & Data ([facility]) Vital Signs (Past 12 Hours) Vital Signs Temp Pulse Resp BP Pulse Ox 06/25/21 08:51 76 124/70 06/25/21 07:48 36.5 C 66 16 132/73 94 Laboratory Results Abnormal lab results 06/25/21 06/25/21 Range/Units 05:50 05:50 RBC 3.50 L (4.2-5.4) M/uL Hgb 11.0 L (12.0-16.0) g/dL Hct 34.1 L (37-47) % RDW Std Deviation 57.1 H (36.4-46.3) fL RDW Coeff of Bryan 16.0 H (11.5-14.5) % MPV 10.5 H (7.4-10.4) fL BUN/Creatinine Ratio 27.7 H (10-20) Glucose 121 H (70-99(Fasting)) mg/dl (1) Fever Fever type: unspecified Qualified Code(s): R50.9 - Fever, unspecified
[2021-06-25] MEDS: ACETAMINOPHEN 325 MG TAB PO PRN (12:06)
[2021-06-25] MEDS: cefTRIAXone SODIUM 2,000 MG in DEXTROSE 5% 50 ML IV SCH (20:37)
[2021-06-25] MEDS: FAMOTIDINE 20 MG TAB PO SCH (20:43)
[2021-06-25] MEDS: ROSUVASTATIN CALCIUM 20 MG TAB PO SCH (20:43)
[2021-06-25] MEDS: BACLOFEN 10 MG TAB PO SCH (20:44)
[2021-06-25] MEDS: MELATONIN 3 MG TAB PO PRN (21:25)
[2021-06-26] MEDS: HEPARIN SOD 5,000 UNIT/0.5 ML VIAL SQ SCH ×3 (06:00→20:30)
[2021-06-26] MEDS: PANTOprazole 40 MG TAB PO SCH (06:00)
[2021-06-26 06:13] LABS: Hematocrit (blood only) 32.1 % (37-47); Hemoglobin 10.4 g/dL (12.0-16.0); Mean Corpuscular Hemoglobin 31.4 pg (25-34); Mean Corpuscular Hgb Conc 32.4 g/dL (32-36); Mean Platelet Volume 10.2 fL (7.4-10.4); Platelet Count 226 K/uL (130-400); RDW Coefficient of Variation 15.7 % (11.5-14.5); RDW Standard Deviation 56.1 fL (36.4-46.3); Red Blood Count 3.31 M/uL (4.2-5.4)
[2021-06-26] MEDS: CALCIUM CARBONATE 1250MG TAB PO SCH (08:19)
[2021-06-26] MEDS: ISOSORBIDE MONO EXTENDED REL 60 MG TABCR PO SCH (08:19)
[2021-06-26] MEDS: GABAPENTIN 300 MG CAP PO SCH ×2 (08:19→20:29)
[2021-06-26] MEDS: LOSARTAN POTASSIUM 50 MG TAB PO SCH (08:19)
[2021-06-26] MEDS: METOPROLOL SUCC 25MG EXT REL TAB PO SCH ×2 (08:19→20:30)
[2021-06-26] MEDS: FUROSEMIDE 20 MG TAB PO SCH (08:19)
[2021-06-26] MEDS: ASPIRIN 81 MG ECTAB PO SCH (08:19)
[2021-06-26] MEDS: predniSONE 10 MG TABLET PO SCH (08:20)
[2021-06-26] MEDS: CEFDINIR 300 MG CAP PO SCH ×2 (09:45→20:29)
--- NOTE | 2021-06-26 14:08 | Hospitalist Progress Note ---
Date of Service June 26, 2021 Assessment & Plan (1) Weakness: (2) T12 compression fracture: (3) Fever: Plan: Patient presented with worsening leg weakness Has chronic back pain Lumbar CT showed acute to subacute T12 fracture Patient evaluated by Orthopedic spine surgeon. She declined surgical management Will manage conservatively per patient's request PT/OT evaluations noted. Rehab recommended. CM working on rehab placement Vit D 33 She had urinary retention on 06/23/21 and higgins was inserted Higgins removed. Retention now resolved Had fevers. Last was 2 days ago UA suggestive of possible UTI Culture growing multiple carmen Ceftriaxone deescalated to cefdinir to complete treatment Continue home losartan, metoprolol, imdur and lasix for CAD, paroxysmal vent tach and hypertension Continue PPI for GERD DVT ppx - hep sq Will dc once placement is available Admission and Anticipated Discharge Date Admission Date: June 24, 2021 Subjective 86-year-old woman with history of abdominal aortic aneurysm, CAD status post stents, hypertension, proximal VT, supraventricular tachycardia, GERD, CKD 3, osteoarthritis, osteoporosis polyneuropathy, rheumatoid arthritis who presents with weakness in the legs. Patient seen and examined Reports weakness in legs continue to improve Has chronic low back pain, chronic peripheral neuropathy Denied chest pain, cough, SOB, palpitation Denied nausea, vomiting, abd pain No more fevers Physical Exam Constitutional: + well hydrated and + obese; no acute distress Eyes: PERRL, conjunctivae normal, anicteric sclerae ENMT: external ear and nose normal, oropharynx normal Respiratory: normal respiratory effort, lungs clear to auscultation Cardiovascular: Rate/Rhythm: regular rate and regular rhythm S1 S2 Gastrointestinal (Abdomen): normal bowel sounds, soft, nontender, no hepatosplenomegaly Musculoskeletal: Pedal edema Dressing over skin tear Neurologic: PERRL, EOMI, accommodation nl, no face palsy, no dysarthria Psychiatric: A+Ox3, euthymic affect Results & Data Results & Data ([facility]) Vital Signs (Past 12 Hours) Vital Signs Temp Pulse Resp BP Pulse Ox 06/26/21 07:44 36.7 C 68 16 150/80 H 94 Laboratory Results Abnormal lab results 06/26/21 Range/Units 05:36 RBC 3.31 L (4.2-5.4) M/uL Hgb 10.4 L (12.0-16.0) g/dL Hct 32.1 L (37-47) % RDW Std Deviation 56.1 H (36.4-46.3) fL RDW Coeff of Bryan 15.7 H (11.5-14.5) % (1) Fever Fever type: unspecified Qualified Code(s): R50.9 - Fever, unspecified
[2021-06-26] MEDS: ACETAMINOPHEN 325 MG TAB PO PRN ×2 (15:00→20:28)
[2021-06-26] MEDS: BACLOFEN 10 MG TAB PO SCH (20:28)
[2021-06-26] MEDS: FAMOTIDINE 20 MG TAB PO SCH (20:29)
[2021-06-26] MEDS: ROSUVASTATIN CALCIUM 20 MG TAB PO SCH (20:30)
[2021-06-27] MEDS: PANTOprazole 40 MG TAB PO SCH (06:06)
[2021-06-27] MEDS: HEPARIN SOD 5,000 UNIT/0.5 ML VIAL SQ SCH (06:07)
[2021-06-27] MEDS: CALCIUM CARBONATE 1250MG TAB PO SCH (09:09)
[2021-06-27] MEDS: FUROSEMIDE 20 MG TAB PO SCH (09:10)
[2021-06-27] MEDS: ISOSORBIDE MONO EXTENDED REL 60 MG TABCR PO SCH (09:10)
[2021-06-27] MEDS: LOSARTAN POTASSIUM 50 MG TAB PO SCH (09:10)
[2021-06-27] MEDS: GABAPENTIN 300 MG CAP PO SCH (09:10)
[2021-06-27] MEDS: predniSONE 10 MG TABLET PO SCH (09:10)
[2021-06-27] MEDS: CEFDINIR 300 MG CAP PO SCH (09:10)
[2021-06-27] MEDS: METOPROLOL SUCC 25MG EXT REL TAB PO SCH (09:10)
--- NOTE | 2021-06-27 11:51 | Discharge Summary ---
Date of Service June 27, 2021 Admission HPI Per Admitting Provider This is an 86-year-old female with past medical history significant for hyperlipidemia, history of abdominal aortic aneurysm, history of CAD status post stents, history of hypertension, paroxysmal VT, supraventricular tachycardia, chronic constipation, GERD, chronic kidney disease stage III, generalized osteoarthritis, osteoporosis, polyneuropathy, rheumatoid arthritis, status post laminectomy syndrome who lives at home with her , comes because of weakness. The patient states she could not get up from her legs, legs are very weak and also has back pain. She had back pain for some time, but now it is worse. As she was not able to ambulate she comes to the ER. She was spiking temperature in the ER. White count was 12. Rest of the labs were okay. COVID is negative. Awaiting urine sample. Denies any chest pain, no shortness of breath, no cough, no nausea, no abdominal pain. Normal bowel and bladder movements. No headache, no blurred visions, no earache, no runny nose, no sore throat. Resting comfortably and hemodynamically stable. Admission Exam Per Admitting Provider GENERAL: The patient is of moderate build, not in acute distress. VITAL SIGNS: Temperature T-max 37.9, pulse 88, respiratory rate 24, blood pressure 127/60, oxygen 92% on room air. HEENT: Pupils equal, round and reactive to light. Oral mucosa moist. NECK: No JVD. CARDIOVASCULAR: S1 and S2 heard. Regular rate and rhythm. No murmur, no gallop. RESPIRATORY SYSTEM: Normal AP diameter. No accessory muscle use. No wheezing, no crackles. ABDOMEN: Soft, bowel sounds present, nontender, no distention. CENTRAL NERVOUS SYSTEM: Alert and oriented. Speech is clear. No facial droop. Insight is good. Obeys simple commands. Moves extremities. EXTREMITIES: Lower extremity weakness present and neuropathy present. Superficial ulcer seen on the shins and toes. Principal Diagnosis T12 compression fracture Urinary tract infection Discharge Exam Constitutional + well hydrated and + obese; no acute distress Eyes PERRL, conjunctivae normal, anicteric sclerae ENMT external ear and nose normal, oropharynx normal Respiratory normal respiratory effort, lungs clear to auscultation Cardiovascular Rate/Rhythm: regular rate and regular rhythm S1 S2 Gastrointestinal (Abdomen) normal bowel sounds, soft, nontender, no hepatosplenomegaly Musculoskeletal Pedal edema Power is 4/5 in both lower extremities. Sensory deficits in feet (chronic) Neurologic PERRL, EOMI, accommodation nl, no face palsy, no dysarthria Psychiatric A+Ox3, euthymic affect Discharge Data Allergies Allergy/AdvReac Type Severity Reaction Status Date / Time morphine Allergy Severe SHORTNESS Verified 06/22/21 21:55 OF BREATH lisinopril Allergy Intermediate GI SYMPTOMS Verified 06/23/21 15:30 shrimp Allergy Intermediate GI SYMPTOMS Verified 06/23/21 15:30 Sulfa (Sulfonamide Allergy Intermediate HIVES Verified 06/22/21 21:55 Antibiotics) adhesive AdvReac Intermediate TAPE - RASH Verified 06/22/21 21:55 tramadol AdvReac Intermediate Nausea Verified 06/21/21 11:04 benzonatate AdvReac Mild GI UPSET Verified 06/23/21 15:30 codeine AdvReac Mild NAUSEA Verified 06/23/21 15:30 Consultations 06/23/21 00:13 ED Decision to Admit Stat 06/23/21 13:17 Consult Orthopedic Surgery Routine Ordered Studies 06/23/21 01:32 CT lumbar spine wo con Urgent The skeletal structures are osteopenic. There is a severe chronic compression deformity of L1 with minimally retropulsed fragments. There are mild to moderate chronic compression deformities of L2, L3, and L4. These are unchanged from 10/17/2020. Vertebral body height is maintained at L5. There is a moderate acute to subacute appearing compression fracture of T12. This is new from 10/17/2020 and there are minimally retropulsed fragments by up to 3 mm. Mild paravertebral edema is noted at this level. Again seen is postoperative change from laminectomy and posterior fusion from L2 to L4. Ventricular screws are present at all levels. The orthopedic hardware appears intact. Lucency around the right interpedicular screw at L3 and both interpedicular screws at L4 suggests loosening. A hemangioma is noted in the body of L5. No lytic or blastic lesion is seen. There is straightening of the lumbar lordosis. Mild lumbar dextrocurvature centered at L2. The transverse processes appear intact. There is no evidence of spondylolysis. There is moderate disc space narrowing at L4-L5 and L5-S1 with posterior disc osteophyte complexes at these levels. Only mild degenerative disc space narrowing is seen at the remaining lumbar levels. Facet arthropathy is noted in the lower lumbar region. Imaged portions of the sacrum and bony pelvis appear intact. Degenerative change is noted in the sacroiliac joints. A sacral stimulator lead is partially imaged. There is marked fatty atrophy of the paraspinous musculature. There is advanced atherosclerotic calcification of the abdominal aorta. An infrarenal abdominal aortic aneurysm measures up to 3.7 cm. No retroperitoneal lymphadenopathy is seen. There are chronic/healed posterior rib fractures. IMPRESSION: 1. There is no evidence of acute fracture or malalignment involving the lumbar spine. 2. There is a moderate acute to subacute appearing compression fracture of T12 with minimally retropulsed fragments. This is new from 10/17/2020. Correlate for point tenderness. 3. Chronic lumbar compression deformities as above. These are similar to previous. 4. Osteopenia with postoperative and spondylotic changes as above. 5. Lucency around the right interpedicular screw at L3 and both interpedicular screws at L4 suggests loosening. 6. There is a 3.7 cm infrarenal abdominal aortic aneurysm. 7. Additional findings as above. Hospital Course (1) Weakness: (2) T12 compression fracture: (3) Fever: Patient presented with worsening leg weakness Has chronic back pain Lumbar CT showed acute to subacute T12 fracture Patient evaluated by Orthopedic spine surgeon. She declined surgical management Plan to manage conservatively per patient's request She stated she will follow up with surgeon outpatient if she decides otherwise Vit D level - 33 Leg weakness improved prior to discharge Patient had fevers on presentation She also had urinary retention on 06/23/21 and higgins was inserted UA was suggestive of UTI Patient was started on ceftriaxone. Fever resolved Urine culture grew multiple carmen Higgins was removed and retention resolved Antibiotics changed to cefdinir to complete treatment Continue home losartan, metoprolol, imdur and lasix for CAD, paroxysmal vent tach and hypertension Continue PPI for GERD Patient discharged to [facility] for rehab Total Time Total Time Spent Total Time Spent (In Minutes): 40 Total Time Includes: Examination of the Patient, Discharge Planning and Medication Reconciliation Discharge Plan Discharge Items Patient Disposition: Transfer Inpatient Rehab Fac Reason For Visit: WEAKNESS Discharge Diagnosis: T12 compression fracture Urinary tract infection Activity: As commented below Activity Comment: Per physical/occupational therapist Non-emergency contact: Primary Care Provider Call non-emergency contact if: you have any medication questions and your symptoms worsen Follow-up/Referrals: Rafael Wade MD [Primary Care Provider] - Diet: Heart Healthy Addtl Attending Provider Instructions: Mrs Thomas You came to the hospital complaining of increased weakness especially in your legs. You were also found to have fevers. You were evaluated and treated for urinary tract infection. CT of your back showed compression fracture at T12 vertebrae. You were evaluated by Orthopedic spine surgery and you opted for nonsurgical treatment for now. You are being discharged to rehab. You are discharged on 3 more days of antibiotics to complete treatment. Please ensure follow up with your Primary Doctor after discharge from rehab. It was a pleasure taking care of you. Pending Studies at Discharge: No Stand-Alone Forms: My [facility] Skilled Items Patient informed of condition?: Yes DNR: No Discharge Level of Care: Acute rehab Communicable Disease: No Discharge Prognosis: Stable Lines: None Urinary Catheter: No Medications and DC Order Prescriptions: New cefdinir 300 mg Capsule 300 mg PO BID 3 Days Qty: 6 RF: 0 Continued clonazepam 0.5 mg tablet 0.5 mg PO HS PRN (Reason: Anxiety) RF: 0 rosuvastatin [Crestor] 40 mg tablet 40 mg PO QPM RF: 0 aspirin [Adult Low Dose Aspirin] 81 mg tablet,delayed release (DR/EC) 81 mg PO MOWEFR RF: 0 losartan [Cozaar] 50 mg tablet 50 mg PO DAILY RF: 0 baclofen 10 mg tablet 10 mg PO HS RF: 0 famotidine 20 mg tablet 20 mg PO HS RF: 0 furosemide 20 mg tablet 20 mg PO DAILY RF: 0 simethicone 125 mg Tablet,Chewable 125 mg PO BID PRN (Reason: Unknown) RF: 0 Xeljanz XR 11 mg Tablet Extended Release 24 Hr 11 mg PO DAILY RF: 0 gabapentin 300 mg capsule 300 mg PO AMHS RF: 0 isosorbide mononitrate 30 mg tablet extended release 24 hr 60 mg PO QAM RF: 0 omeprazole 40 mg capsule,delayed release(DR/EC) 40 mg PO DAILYBB RF: 0 prednisone 5 mg tablet 10 mg PO QAM RF: 0 meloxicam 7.5 mg tablet 7.5 mg PO DAILY PRN (Reason: Pain) RF: 0 metoprolol succinate 25 mg tablet extended release 24 hr 25 mg PO BID RF: 0 diclofenac sodium [Arthritis Pain (diclofenac)] 1 % gel 2 g topical QID PRN (Reason: Pain) RF: 0 albuterol sulfate 90 mcg/actuation HFA aerosol inhaler 2 puff INHALATION Q4 PRN (Reason: Wheezing) RF: 0 amoxicillin 500 mg capsule 2,000 mg PO UD PRN (Reason: Prophylaxis) RF: 0 loperamide 2 mg Capsule 2 mg PO QID PRN (Reason: Diarrhea) RF: 0 calcium carbonate 500 mg calcium (1,250 mg) Tablet 500 mg PO DAILY RF: 0 Discharge Orders: Discharge Order (Routine); Ordered 06/27/21 Ordered By: Ely Fajardo/Other Patient Handouts: Preventing Falls in the Home, Falls Prevent Adjust Living Space, Falls Prevent Use Cane Walker Admission Data Admit Date/Time: 06/24/21 13:08 Attending Provider: Ely Wood I. Admit Provider: Jose Kaufman Primary Care Provider: Rafael Wade Other Providers: Jose Kaufman ; Jason Clarke ; Amilcar Dukes ; [facility] Other Interventions: Discharge Summary Assessment (RN) Last Done: 06/27/21 14:33
== END 2021-06-27 13:55 | DRG 543 ==
LOC: 3E 20:59 → ED 20:59 → SUATTDRO 06-23 01:32 → 3E 06-23 02:27

== ENCOUNTER 2023-11-22 09:48 | Inpatient (IN) ==
--- NOTE | 2023-11-22 10:25 | Emergency Department Note ---
Impression & Plan Bilateral leg weakness, BERNADINE (acute kidney injury), Elevated troponin I level ED Provider Note NAME: ESTELLE CARRIZALES AGE: 88 SEX: F : 1935 ARRIVES VIA: Ambulance INFORMANT: Patient, the patient's ED PROVIDER(S): Michael Navarrete DO CHIEF COMPLAINT: Leg weakness HPI: The patient is an 88-year-old female who presented to the emergency department for an evaluation of leg weakness. The patient does have a history of rheumatoid arthritis. The patient's been having problems with chronic pain especially in her lower back as well as her lower legs. She has a history of neuropathy. She has had no new medications. The patient has been having problems ambulating especially over the last 48 hours. Her states that normally she can use a walker but recently she cannot even use that. There is been no reported falls. The patient is been taking her medications as prescribed according to her significant other. She denies having any headache or unilateral weakness. ROS: See above HPI for pertinent positives & negatives. A total of 10 systems reviewed and were otherwise negative. PAST MEDICAL HISTORY: See Below PAST SURGICAL HISTORY: See Below FAMILY HISTORY: See Below SOCIAL HISTORY: See Below HOME MEDICATIONS: See Below ALLERGIES: See Below VITALS: See Below PHYSICAL EXAMINATION: GENERAL: The is listless and slow to respond to questioning. EYES: The conjunctivae are clear. The pupils are round and reactive. EARS, NOSE, MOUTH AND THROAT: The nose is without any evidence of any deformity. NECK: The neck is nontender and supple. RESPIRATORY: Normal respiratory effort is noted there is no evidence of wheezing rhonchi or rales CARDIOVASCULAR: Regular rate and rhythm noted there no murmurs rubs or gallops normal S1 normal S2. GASTROINTESTINAL: The abdomen is soft. Abdomen is nontender. BACK: There is no midline tenderness noted. Diffuse tenderness noted over the lower lumbar spine. MUSCULOSKELETAL/EXTREMITIES: There is no evidence of gross deformity full range of motion is noted in the hips and shoulders. SKIN: Chronic venous stasis changes were noted. Pedal edema was noted bilaterally. NEUROLOGIC: Patient is awake to verbal commands. She is oriented to person place and situation. The patient is able to hold either leg off the bed. MEDICAL DECISION MAKING: The patient is an 88-year-old female who presented to the emergency department for an evaluation of generalized weakness. The patient was describing lower extremity weakness mostly. She has a history of rheumatoid arthritis and chronic pain. She was slurring her words somewhat initially and was hypoxic. It is possible her condition today could be related to her pain medication although given her age and comorbidities further laboratory and radiographic studies were obtained. The patient was treated with a small fluid bolus. She was found have an elevated troponin as well as an elevated creatinine compared to baseline. I discussed the patient's laboratory and radiographic studies with her. Given her history of rheumatoid I was concerned that this could represent some central nervous system pathology or possibly something with her neck or her lumbar spine. Ultimately no definite cause for her weakness could be found but the longer she was in the emergency department she did improve slightly. I discussed the patient's condition with her significant other as well as her son. Given her findings I discussed her condition with the on-call [facility] hospitalist. They have agreed to evaluate the patient in the emergency department. Triage Nursing notes reviewed. Prior medical records reviewed Vital Signs: reviewed and remarkable for intermittent hypoxia. Differential diagnosis: Infection, dehydration, metabolic abnormality, hypo/hyperglycemia, electrolyte disturbance, anemia, hypoxia, cardiac sources, intracerebral event, toxicologic, neurologic, as well as other pathologies. ER treatment provided: See below Diagnostics interpreted by me: ECG: EKG was obtained in the emergency department. My interpretation is normal sinus rhythm at 89 bpm. There is no ectopy. There is nonspecific inferior ST segment abnormalities noted. This was compared to a tracing from June 17, 2023. No changes were noted. Cardiac Monitoring: An order was placed for continuous cardiac monitoring. The monitor shows a rate of 88 bpm with sinus rhythm. Laboratory studies: As stated above and show below. Imaging studies: See below. Radiographic imaging was reviewed by myself Consultation(s): I discussed this case with Alfredo who is on-call for the [facility] group. Past Med/Surg History Problem List (Updated 11/22/23 @ 12:02 by Michael Navarrete DO) Elevated troponin I level (Acute) BERNADINE (acute kidney injury) (Acute) Bilateral leg weakness (Acute) Hematoma of right lower leg (Acute) Greater trochanteric pain syndrome Opioid dependence Greater trochanteric bursitis of left hip Rotator cuff arthropathy of left shoulder Mechanical low back pain Medication monitoring encounter Acquired foot deformity Laceration of right knee (Acute) Pressure ulcer of toe of left foot, stage 4 T12 compression fracture Fever (Acute) Weakness (Acute) Lower extremity edema (Chronic) Acquired hammer toe (Chronic) Neuropathy (Chronic) Stage IV pressure ulcer (Acute) Pes anserine bursitis Status post right knee replacement Traumatic open wound of right lower leg (Acute) Immunosuppression due to chronic steroid use Traumatic open wound of right lower leg with delayed healing (Acute) Laceration of elbow, left (Acute) Dehydration (Acute) Pneumonia due to 2019 novel coronavirus (Acute) Acute respiratory failure with hypoxemia (Acute) Acute respiratory failure with hypoxia Multifocal pneumonia Rheumatoid arthritis (Acute) SARS-CoV-2 positive (Acute) Weakness (Acute) Fall Bilateral knee pain History of total right knee replacement Postural imbalance Entrapment neuropathy of peripheral nerve of lower extremity Venous insufficiency of both lower extremities (Chronic) Traumatic open wound of right lower leg (Acute) Pes anserinus tendonitis of right lower extremity Left knee DJD Traumatic wound (Acute) Left knee pain (Chronic) Postoperative seroma (Chronic) L2-4 Lumbar postlaminectomy syndrome (Chronic) Acquired right foot drop Arachnoiditis (Chronic) Lumbar compression fracture (Chronic) L1 acute on chronic MRI 03/[address] 10/17/2020 Pes anserine bursitis Right knee pain Degenerative joint disease of knee Myofascial pain (Chronic) Sacroiliitis (Chronic) Cervical radiculopathy (Chronic) Greater trochanteric bursitis (Chronic) Lumbago (Chronic) Lumbar radiculitis (Chronic) Peripheral neuropathy (Chronic) Facet syndrome, lumbar (Chronic) CAD (coronary artery disease) (Chronic) Osteoarthritis (Chronic) Myocardial infarct, 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) Hypertension (Chronic) Dyslipidemia (Chronic) Osteoporosis (Chronic) Rheumatoid arthritis of shoulder (Chronic) Lumbar spinal stenosis (Chronic) Medical History Hypertension Hx of rheumatoid arthritis Hx of supraventricular tachycardia per cardio record 2019 AAA (abdominal aortic aneurysm) per cardio record 2019 GERD (gastroesophageal reflux disease) Hx of migraines Hx of myocardial infarction 2009>per cardio record from 2019 Lumbar spinal stenosis Postlaminectomy syndrome, lumbar region no current issues Dyslipidemia CAD (coronary artery disease) f/u zachary bergeron History of COVID-19 2020, admitted to [facility] w/acute resp. failure>no residual effects Neuropathy in both legs, rt>lt Right knee pain Status post TKA taking shots due to bursitis (no shots for at least 3 months) Surgical History Hx of colonoscopy Hx of heart artery stent ~2008, [facility], x1 stent, 2/2 AR ~2011, [facility], x1 stent, 2/2 heart symptoms; f/u zachary bergeron Hx of cardiac cath ~2008, [facility], x1 stent, 2/2 AR ~2011, [facility], x1 stent, 2/2 heart symptoms; f/u zachary bergeron History of total shoulder replacement Right History of loop recorder "removed/shut off"; follows with Dr Bergeron S/P total knee arthroplasty Right History of lumbosacral spine surgery 50+ years for first one, 2nd one 2014, both lower back; flexible rainer and does lesi History of PTCA "years ago" History of hysterectomy History of breast biopsy History of tonsillectomy History of adenoidectomy History of angioplasty Family History Father Myocardial infarction Brother Myocardial infarction Other Family history non-contributory Denies family history of Ovarian cancer Prostate cancer Breast cancer Colorectal cancer Social History Smoking Status: Former smoker Tobacco Type: Cigarettes Second Hand Exposure: Yes (hx); Do You Dip or Chew Tobacco: No; Hx Alcohol Use: Yes Alcohol type: wine Alcohol type Comment: In the evenings. Alcohol Intake Frequency: 4 or More x per/Week Hx Substance Use: No Preferred Language: Amharic Communication Ability: Effective Visual Impairment: Limited Hearing Ability: Normal Security Operations Engineer Required: No Beliefs That Will Affect Care: None marital status: Current Living Situation: Spouse current occupational status: retired How many Children do You have: 7 Feels Safe at Home: Yes Diet: regular during the past year weight has: remained stable Assistive Devices: Glasses and Walker Allergies Allergies Allergy/AdvReac Type Severity Reaction Status Date / Time morphine Allergy Severe SHORTNESS Verified 10/11/23 07:11 OF BREATH lisinopril Allergy Intermediate GI SYMPTOMS Verified 10/11/23 07:11 shrimp Allergy Intermediate GI SYMPTOMS Verified 10/11/23 07:11 Sulfa (Sulfonamide Allergy Intermediate HIVES Verified 10/11/23 07:11 Antibiotics) adhesive AdvReac Intermediate TAPE - RASH Verified 10/11/23 07:11 benzonatate AdvReac Mild GI UPSET Verified 10/11/23 07:11 codeine AdvReac Mild NAUSEA Verified 10/11/23 07:11 Home Meds Home Medications Medication Instructions Recorded Confirmed clonazepam 0.5 mg tablet 0.5 mg PO HS PRN Anxiety 11/14/17 10/11/23 rosuvastatin 40 mg tablet (Crestor) 40 mg PO QPM 11/14/17 10/11/23 aspirin 81 mg tablet,delayed 81 mg PO UD 02/06/18 10/11/23 release (Adult Low Dose Aspirin) gabapentin 300 mg capsule 300 mg PO BID 12/25/18 10/11/23 famotidine 20 mg tablet 20 mg PO HS 05/29/21 10/11/23 amoxicillin 500 mg capsule 2,000 mg PO UD PRN Prophylaxis 06/22/21 10/11/23 calcium carbonate 500 mg PO DAILY 06/22/21 10/11/23 isosorbide mononitrate 30 mg 30 mg PO QAM 04/19/22 10/11/23 tablet,extended release 24 hr tofacitinib 11 mg tablet,extended 11 mg PO QAM 04/19/22 10/11/23 release 24 hr (Xeljanz XR) melatonin 5 mg capsule 5 mg PO HS PRN Sleep 07/02/22 10/11/23 furosemide 20 mg tablet 20 mg PO UD 02/20/23 10/11/23 ascorbic acid (vitamin C) 500 mg 500 mg PO QAM 03/20/23 10/11/23 capsule cholecalciferol (vitamin D3) 10 10 mcg PO DAILY 03/20/23 10/11/23 mcg (400 unit) capsule metoprolol succinate 25 mg 25 mg PO BID 07/10/23 10/11/23 tablet,extended release 24 hr Previous Rx's Medication Instructions Recorded tramadol 50 mg tablet 50 mg PO BID PRN pain #40 tabs 05/16/23 buprenorphine 15 mcg/hour weekly 1 patch transdermal Q7D #4 ea 11/01/23 transdermal patch (Butrans) Results & Data (ED) Vital Signs Vital Signs - 24 hr 11/22/23 09:50 11/22/23 10:30 11/22/23 11:00 Temperature 37.3 C Temperature Source Oral Pulse Rate 94 H 86 83 Respiratory Rate 16 21 20 Blood Pressure 164/140 H 106/71 105/65 Blood Pressure Mean 148 82 78 Blood Pressure Position Semi-fowlers Pulse Oximetry 92 91 93 Oxygen Delivery Method Room Air Sepsis Recent Fever Within 48 Hours No Sepsis New/Unexplained Change in Mental Status No Sepsis Action Taken by Nursing No Action Required 11/22/23 11:06 Temperature Temperature Source Pulse Rate 81 Respiratory Rate 18 Blood Pressure Blood Pressure Mean Blood Pressure Position Pulse Oximetry 92 Oxygen Delivery Method Room Air Sepsis Recent Fever Within 48 Hours Sepsis New/Unexplained Change in Mental Status Sepsis Action Taken by [facility] Medications Current Medication List: was personally reviewed by me Laboratory Data Attestation: I reviewed the patient's lab results. 11/22/23 10:32 11/22/23 10:32 Lab Results 11/22/23 11/22/23 Range/Units 10:23 10:32 WBC 8.80 (4.8-10.8) K/ul RBC 4.37 (4.20-5.40) M/uL Hgb 14.0 (12.0-16.0) g/dl Hct 43.9 (37.0-47.0) % MCV 100.5 H (80.0-100.0) fL MCH 32.0 (25.0-34.0) pg MCHC 31.9 L (32.0-36.0) g/dL RDW Std Deviation 55.8 H (36.4-46.3) fL RDW Coeff of Bryan 15.0 H (11.5-14.5) % Plt Count 266 (130-400) K/uL MPV 9.3 L (9.4-12.4) fL Immature Gran % (Auto) 0.5 % Neut % (Auto) 82.6 % Lymph % (Auto) 8.8 % Bledsoe % (Auto) 7.0 % Eos % (Auto) 0.6 % Baso % (Auto) 0.5 % Neut # (Auto) 7.28 H (1.40-6.50) K/uL Lymph # (Auto) 0.77 L (1.20-3.40) K/uL Bledsoe # (Auto) 0.62 H (0.11-0.59) K/uL Eos # (Auto) 0.05 (0.00-0.50) K/uL Baso # (Auto) 0.04 (0.00-0.20) K/uL Immature Gran # (Auto) 0.04 (0.01-0.20) K/uL Absolute Nucleated RBC 0.03 (0.00-0.12) K/uL Nucleated RBC % (auto) 0.3 % PT Cancelled INR Cancelled APTT Cancelled PTT Ratio Cancelled VBG pH 7.33 L (7.36-7.41) VBG pCO2 46 (38-50) mmHg VBG pO2 20 mmHg VBG HCO3 24 mmol/L VBG O2 Saturation < 60.0 % VBG Base Excess -2.0 mEq/L Sodium 139 (136-145) mmol/L Potassium 4.2 (3.5-5.1) mmol/L Chloride 102 (98-107) mmol/L Carbon Dioxide 25 (21-32) mmol/L Anion Gap 12 H (3-11) BUN 25 H (6-23) mg/dl Creatinine 1.40 H (0.6-1.2) mg/dl Est Cr Clr Drug Dosing 27.1 ml/min Est GFR ( Amer) 39.1 ml/min Est GFR (Non-Af Amer) 33.7 ml/min BUN/Creatinine Ratio 17.9 (10-20) Glucose 139 H (70-99(Fasting)) mg/dl Calcium 9.6 (8.6-10.3) mg/dl Magnesium 2.3 (1.7-2.4) mg/dl Total Bilirubin 1.0 (0.2-1.0) mg/dl AST 21 (13-39) U/L ALT 10 (7-52) U/L Alkaline Phosphatase 42 (34-104) U/L Ammonia 12.0 L (18-72) umol/L Total Creatine Kinase 97 (26-192) U/L Troponin I High Sens 107.9 H* (0-14) pg/ml B-Natriuretic Peptide 242 H (0-100) pg/ml Total Protein 7.5 (6.0-8.3) gm/dl Albumin 4.4 (3.4-5.0) gm/dl Globulin 3.1 (2.5-4.0) gm/dl Albumin/Globulin Ratio 1.4 (0.9-2) TSH 1.711 (0.300-4.500) uIu/ml SARS-CoV-2 (PCR) NEGATIVE (Negative) Influenza Type A (PCR) Negative (Neg) Influenza Type B (PCR) Negative (Neg) RSV (RT-PCR) Negative (Neg) Administered Medications Discontinued Medications Sodium Chloride (Nss) 500 mls @ 999 mls/hr IV .Q31M ONE Stop: 11/22/23 11:52 Last Admin: 11/22/23 11:46 Dose: 999 mls/hr Documented By: CEF Imaging Data Attestation: I personally reviewed and interpreted this imaging study as follows: My Impression: CT the brain was obtained in the emergency department. My interpretation is no intracranial hemorrhage or mass effect, final report below. 1 view chest x-ray was obtained in the emergency department. My interpretation is no free air or definite infiltrate, final report below. Radiologist's Impression: Cervical Spine CT 11/22/23 10:13 CT cervical spine wo con CT DOSE: 2005.94 mGy.cm CLINICAL HISTORY: 88 years-old Female with LE weakness. Chronic neck pain COMPARISON: Head CT of same day, MRI cervical spine 09/04/2018 TECHNIQUE: Multiple axial CT images of the cervical spine were obtained without contrast. A dose lowering technique was utilized adhering to the principles of ALARA. FINDINGS: 4 mm anterolisthesis C3 on C4 previously measured 3 mm, likely secondary to the severe facet arthrosis. There is severe multilevel facet arthrosis with degenerative partial bony fusion of the C3-C4 facets. Multilevel intervertebral disc space narrowing, severe at C5-C6 with circumferential disc osteophyte complex. Demineralized appearance of the bones. C1-C2 articulation is intact. No acute cervical spine fracture or subluxation identified. There is prominent calcified plaque noted within the bilateral carotid bulbs and proximal ICAs. Multilevel bilateral neural foraminal narrowing is suboptimally evaluated by CT technique. The cervical soft tissues appear unremarkable. The visualized lung apices appear clear. IMPRESSION: No acute cervical spine fracture or subluxation. ACT 112: Negative or not required by law. The above report was generated using voice recognition software. It may contain grammatical, syntax or spelling errors. Electronically signed by: Gideon Turner M.D. 11/22/2023 11:15 AM Chest X-Ray 11/22/23 10:13 XR chest 1V portable CLINICAL HISTORY: weakness TECHNIQUE: Single frontal radiograph of the chest was obtained. Comparison: Comparison is made to chest radiograph 06/22/2021 FINDINGS: Right shoulder arthroplasty is again seen along with battery-powered device chest. Cardiomegaly is noted. The aortic arch is calcified. The lungs are clear. There is blunting of the costophrenic angle on the left. IMPRESSION: 1. Cardiomegaly without acute chest disease. 2. Blunting of the left costophrenic angle may represent trace effusion versus scarring. ACT 112: Negative or not required by law. Electronically signed by: Abdias Ortiz M.D. 11/22/2023 11:[address] 11/22/23 10:13 CT head/brain wo con CLINICAL HISTORY: weakness Technique: Contiguous axial CT images of the head were acquired from the base of the skull to the vertex without intravenous contrast administration. Images were viewed in brain, subdural and bone windows. Automated dose lowering techniques and/or adjustment according to patient size were utilized for this exam. Comparison: Comparison is made to CT head 1121 Findings: Areas of decreased attenuation are present in the periventricular and subcortical white matter bilaterally consistent with small vessel ischemic disease. Generalized cerebral atrophy with commensurate enlargement of the ventricles, sulci, and cisterns is also present. There is no acute intracranial hemorrhage or evidence of acute territorial infarction. No shift of the midline structures, mass effect, or extra-axial abnormalities are shown. Atherosclerotic calcifications are present in the intracranial segments of the internal carotid arteries. Imaged portions of the paranasal sinuses and mastoid air cells are clear. The orbits appear normal. There are no acute fractures of the calvaria or scalp swelling. Impression: No acute intracranial hemorrhage, no evidence of acute territorial infarction or other acute intracranial disease process. ACT 112: Negative or not required by law. Electronically signed by: Abdias Ortiz M.D. 11/22/2023 10:[address] 11/22/23 10:13 CT OF THE LUMBAR SPINE CLINICAL HISTORY: Lower extremity weakness. COMPARISON STUDY: Lumbar spine CT June 23, 2021. Thoracolumbar spine radiographs May 16, 2023. Lumbar spine MRI April 10, 2019. CT of the abdomen and pelvis May 08, 2022. TECHNIQUE: Helical axial images of the lumbar spine were obtained. Sagittal and coronal reconstructions were viewed. Automated exposure control was utilized for the study. A dose lowering technique was utilized adhering to the principles of ALARA. FINDINGS: For purposes of numbering on this exam, the L5-S1 disc space is assigned to axial image [id number]. There is mild lumbar spine dextroscoliosis. There is stable postoperative findings consistent with L2-L4 decompression and fusion. The hardware is intact. Multiple old thoracolumbar spine fractures are unchanged in appearance since CT of May 08, 2022 and include fractures of T12, L1, L2, L3 and L4 vertebra. There are no acute lumbar spine fractures. There are no osseous lesions. There is moderate to severe multilevel degenerative disc disease and facet arthrosis. Central canal and neural foramen are suboptimally assessed given CT technique. A 4.5 cm infrarenal abdominal aortic aneurysm has mildly increased in size since CT of April 30, 2022 when it measured 4.2 cm. IMPRESSION: 1. No acute lumbar spine fracture or subluxation. 2. No change in appearance of old thoracolumbar spine fractures since CT of May 08, 2022. 3. Stable postoperative findings following L2-L4 decompression and fusion. 4. Moderate to severe multilevel degenerative disc disease and facet arthrosis within the lumbar spine. Suboptimal evaluation of the central canal given CT technique. 5. Mild increase in caliber of 4.5 cm infrarenal abdominal aortic aneurysm. ACT 112: Negative or not required by law. Electronically signed by: Freddy Rivera M.D. 11/22/2023 11:07 AM Discharge Plan Visit Data Chief Complaint: Leg Injury/Pain Stated Complaint: LEG PAIN ED Provider: Michael Navarrete Discharge Problem: Bilateral leg weakness, BERNADINE (acute kidney injury), Elevated troponin I level Patient Disposition: Being Evaluated by Hospitalist Forms Stand Alone Forms: [facility] Prescriptions Prescriptions: No Action clonazepam 0.5 mg tablet 0.5 mg PO HS PRN (Reason: Anxiety) rosuvastatin [Crestor] 40 mg tablet 40 mg PO QPM aspirin [Adult Low Dose Aspirin] 81 mg tablet,delayed release (DR/EC) 81 mg PO UD Patient Comments: called pt on the phone Rx Instructions: TAKES MON, WED & FRI. famotidine 20 mg tablet 20 mg PO HS furosemide 20 mg tablet 20 mg PO UD Rx Instructions: 3 days per week melatonin 5 mg capsule 5 mg PO HS PRN (Reason: Sleep) Xeljanz XR 11 mg tablet extended release 24 hr 11 mg PO QAM cholecalciferol (vitamin D3) 10 mcg (400 unit) capsule 10 mcg PO DAILY ascorbic acid (vitamin C) 500 mg capsule 500 mg PO QAM tramadol 50 mg tablet 50 mg PO BID PRN (Reason: pain) Qty: 40 0RF metoprolol succinate 25 mg tablet extended release 24 hr 25 mg PO BID buprenorphine [Butrans] 15 mcg/hour patch weekly 1 patch transdermal Q7D Qty: 4 0RF Rx Instructions: ONGOING THERAPY gabapentin 300 mg capsule 300 mg PO BID isosorbide mononitrate 30 mg tablet extended release 24 hr 30 mg PO QAM amoxicillin 500 mg capsule 2,000 mg PO UD PRN (Reason: Prophylaxis) Rx Instructions: take 4 capsules 1 hour prior to dental appointments calcium carbonate 500 mg calcium (1,250 mg) Tablet 500 mg PO DAILY Referrals Referrals: Candice Mcnair DO [Primary Care Provider] -
[2023-11-22 10:47] LABS: HCO3 VBG 24 mmol/L; Oxygen Saturation VBG < 60.0 %; PCO2 VBG 46 mmHg (38-50); PO2 VBG 20 mmHg; pH VBG 7.33 (7.36-7.41)
[2023-11-22 10:58] LABS: Basophils # (auto) 0.04 K/uL (0.00-0.20); Basophils % (auto) 0.5 %; Eosinophils # (auto) 0.05 K/uL (0.00-0.50); Eosinophils % (auto) 0.6 %; Hematocrit (blood only) 43.9 % (37.0-47.0); Immature Granulocytes # (auto) 0.04 K/uL (0.01-0.20); Immature Granulocytes % (auto) 0.5 %; Lymphocytes # (auto) 0.77 K/uL (1.20-3.40); Lymphocytes % (auto) 8.8 %; Mean Corpuscular Hgb Conc 31.9 g/dL (32.0-36.0); Mean Corpuscular Volume 100.5 fL (80.0-100.0); Mean Platelet Volume 9.3 fL (9.4-12.4); Monocytes # (auto) 0.62 K/uL (0.11-0.59); Neutrophils # (auto) 7.28 K/uL (1.40-6.50); Neutrophils % (auto) 82.6 %; Nucleated RBC # (auto) 0.03 K/uL (0.00-0.12); Nucleated RBC % (auto) 0.3 %; Platelet Count 266 K/uL (130-400); RDW Standard Deviation 55.8 fL (36.4-46.3); Red Blood Count 4.37 M/uL (4.20-5.40)
--- NOTE | 2023-11-22 11:01 | CT Scan Report ---
CT head/brain wo con CLINICAL HISTORY: weakness Technique: Contiguous axial CT images of the head were acquired from the base of the skull to the joseluis herson without intravenous contrast administration. Images were viewed in brain, subdural and bone [facility]. Automated dose lowering techniques and/or adjustment according to patient size were utilized for this exam. Comparison: Comparison is made to CT head 1121 Findings: Areas of decreased attenuation are present in the periventricular and subcortical white matter bilate rally consistent with small vessel ischemic disease. Generalized cerebral atrophy with commensurate e nlargement of the ventricles, sulci, and cisterns is also present. There is no acute intracranial hem orrhage or evidence of acute territorial infarction. No shift of the midline structures, mass effect, or extra-axial abnormalities are shown. Atherosclerotic calcifications are present in the intracran ial segments of the internal carotid arteries. Imaged portions of the paranasal sinuses and mastoid air cells are clear. The orbits appear normal. There are no acute fractures of the calvaria or scalp swelling. Impression: No acute intracranial hemorrhage, no evidence of acute territorial infarction or other acute intracra nial disease process. ACT 112: Negative or not required by law. Electronically signed by: Abdias Ortiz M.D. 11/22/2023 10:59 AM
--- NOTE | 2023-11-22 11:02 | XRay Report ---
XR chest 1V portable CLINICAL HISTORY: weakness TECHNIQUE: Single frontal radiograph of the chest was obtained. Comparison: Comparison is made to chest radiograph 06/22/2021 FINDINGS: Right shoulder arthroplasty is again seen along with battery-powered device chest. Cardiomegaly is no sarina. The aortic arch is calcified. The lungs are clear. There is blunting of the costophrenic angle o n the left. IMPRESSION: 1. Cardiomegaly without acute chest disease. 2. Blunting of the left costophrenic angle may represent trace effusion versus scarring. ACT 112: Negative or not required by law. Electronically signed by: Abdias Ortiz M.D. 11/22/2023 11:01 AM
--- NOTE | 2023-11-22 11:08 | CT Scan Report ---
CT OF THE LUMBAR SPINE CLINICAL HISTORY: Lower extremity weakness. COMPARISON STUDY: Lumbar spine CT June 23, 2021. Thoracolumbar spine radiographs May 16, 2023. Lum bar spine MRI April 10, 2019. CT of the abdomen and pelvis May 08, 2022. TECHNIQUE: Helical axial images of the lumbar spine were obtained. Sagittal and coronal reconstruct ions were viewed. Automated exposure control was utilized for the study. A dose lowering technique was utilized adhering to the principles of ALARA. FINDINGS: For purposes of numbering on this exam, the L5-S1 disc space is assigned to axial image [id number]. There is mild lumbar spine dextroscoliosis. There is stable postoperative findings consistent w ith L2-L4 decompression and fusion. The hardware is intact. Multiple old thoracolumbar spine fracture s are unchanged in appearance since CT of May 08, 2022 and include fractures of T12, L1, L2, L3 and L4 vertebra. There are no acute lumbar spine fractures. There are no osseous lesions. There is mo derate to severe multilevel degenerative disc disease and facet arthrosis. Central canal and neural f oramen are suboptimally assessed given CT technique. A 4.5 cm infrarenal abdominal aortic aneurysm hawk s mildly increased in size since CT of April 30, 2022 when it measured 4.2 cm. IMPRESSION: 1. No acute lumbar spine fracture or subluxation. 2. No change in appearance of old thoracolumbar spine fractures since CT of May 08, 2022. 3. Stable postoperative findings following L2-L4 decompression and fusion. 4. Moderate to severe multilevel degenerative disc disease and facet arthrosis within the lumbar spin e. Suboptimal evaluation of the central canal given CT technique. 5. Mild increase in caliber of 4.5 cm infrarenal abdominal aortic aneurysm. ACT 112: Negative or not required by law. Electronically signed by: Freddy Rivera M.D. 11/22/2023 11:07 AM
[2023-11-22 11:15] LABS: Albumin Globulin Ratio 1.4 (0.9-2); Albumin Level 4.4 gm/dl (3.4-5.0); BUN Creatinine Ratio 17.9 (10-20); Calcium 9.6 mg/dl (8.6-10.3); Creatinine Clr Calc Pharmacy 27.1 ml/min; Est GFR (African American) 39.1 ml/min; Est GFR (Non-African American) 33.7 ml/min; Globulin 3.1 gm/dl (2.5-4.0); Magnesium 2.3 mg/dl (1.7-2.4); Potassium 4.2 mmol/L (3.5-5.1); Total Protein 7.5 gm/dl (6.0-8.3)
--- NOTE | 2023-11-22 11:16 | CT Scan Report ---
CT cervical spine wo con CT DOSE: 2005.94 mGy.cm CLINICAL HISTORY: 88 years-old Female with LE weakness. Chronic neck pain COMPARISON: Head CT of same day, MRI cervical spine 09/04/2018 TECHNIQUE: Multiple axial CT images of the cervical spine were obtained without contrast. A dose low ering technique was utilized adhering to the principles of ALARA. FINDINGS: 4 mm anterolisthesis C3 on C4 previously measured 3 mm, likely secondary to the severe face t arthrosis. There is severe multilevel facet arthrosis with degenerative partial bony fusion of the C3-C4 facets. Multilevel intervertebral disc space narrowing, severe at C5-C6 with circumferential di sc osteophyte complex. Demineralized appearance of the bones. C1-C2 articulation is intact. No acute cervical spine fracture or subluxation identified. There is prominent calcified plaque noted within t he bilateral carotid bulbs and proximal ICAs. Multilevel bilateral neural foraminal narrowing is subo ptimally evaluated by CT technique. The cervical soft tissues appear unremarkable. The visualized lung apices appear clear. IMPRESSION: No acute cervical spine fracture or subluxation. ACT 112: Negative or not required by law. The above report was generated using voice recognition software. It may contain grammatical, syntax o r spelling errors. Electronically signed by: Gideon Turner M.D. 11/22/2023 11:15 AM
[2023-11-22 11:20] LABS: Influenza A virus by PCR Negative (Neg); Influenza B virus by PCR Negative (Neg); RSV by PCR Negative (Neg); SARS CoV2 RNA(COVID-19) Ceph NEGATIVE (Negative)
[2023-11-22 11:26] LABS: Thyroid Stimulating Hormone 1.711 uIu/ml (0.300-4.500)
[2023-11-22 11:33] LABS: Troponin I High Sensitivity 107.9 pg/ml (0-14)
--- OUTSIDE RECORDS SUMMARY | 2023-11-22 11:35 | External Medical Summary | Summary of Care ---
Author Name Unknown Organization [facility] Address [address] [place] [address] Phone [phone] Care Team Providers Care Hourly Caregiver Name Role Phone XuCandice Jose Miguel SOLANO Primary Care Provider [phone] Reason for Visit * Auth/Cert Specialty Diagnoses / Procedures Referred By Valeria prater Referred To Contact Diagnoses Dysphagia Dysphagia [R13.10] Procedures EGD, FLEXIBLE, DIAGNOSTIC ESOPHAGOGASTRODUODENOSCOPY (EGD), FLEXIBLE, TRANSORAL, DIAGNOSTIC Aleks Mendoza MD [address] [place] [id number] [facility] [address] [place] [address] Referral ID Status Reason Start Date Expiration Date Visits Re quested Visits Authorized [id number] Encounter Details Date Type Department Care Team (Latest Contact Info) Description 11/13/2023 9:45 AM EDT - 11/13/2023 11:35 AM EDT Hospital Encounter [facility], Endoscopy [facility] [address] [place] [address] Lucina Queen DO [address] [place] [address] Upper GI Endoscopy Discharge Disposition: Home - Self Care Allergies Active Allergy Reactions Criticality Noted Date Comments Codeine Nausea/vomiting 03/23/2014 Hydroxychloroquine Rash 07/18/2021 Patient reported red itchy rash to neck after taking medication for 1 day Lisinopril Cough 12/09/2009 Pregabalin Edema Other 09/07/2016 Edema in the feet Morphine Anaphylaxis High 04/10/2011 Shrimp Flavor Nausea/vomiting 12/28/2015 Sulfa Antibiotics Nausea/vomiting 08/09/2000 Adhesive Tape Itching 08/25/2014 documented as of this encounter (statuses as of 11/13/2023) Medications Medication Sig Dispensed Refills Start Date End Date Status CALCIUM 500 MG PO TABS Take by mouth. Active Aspirin 81 MG Tablet Take 1 Tablet by mouth 3 times a week. 34 Tab 5 02/07/2015 Active Simethicone 125 MG Oral Tablet ChewableIndication s:as needed Take by mouth. Indications: as needed Active amoxicillin (AMOXIL) 500 MG Capsule 4 01/06/2019 Active traMADol HCl 50 MG Oral Tablet (Ultram) Take 1 Tab by mouth every 6 hours as needed for Pain, Severe. 5 Tab 08/05/2020 Active Additional Information Patient not taking.Reported on 10/24/2023 Melatonin 3 MG Oral CapsuleIndications :as needed Take 2 Capsules by mouth at bedtime. Active Buprenorphine 10 MCG/HR Transdermal Patch Weekly 01/16/2022 Active Isosorbide Mononitrate ER 30 MG Oral Tablet Extended Release 24 Hour (Imdur)Indications :Coronary artery disease of [place] artery of [place] heart with stable angina pectoris (HCC) TAKE 2 TABLETS BY MOUTH EVERY MORNING 180 Tablet 4 05/16/2022 Active Additional Information Patient taking differently: Reports she is only taking 1 tablet, Reported on 05/13/2023 Xeljanz XR 11 MG Oral Tablet Extended Release 24 Hour (Tofacitinib Citrate ER) Take 1 tablet by mouth once a day. 90 Tablet 1 08/03/2022 Active Metoprolol Succinate ER 25 MG Oral Tablet Extended Release 24 Hour (toPROL XL)Indications:Old myocardial infarct TAKE 1 TABLET BY MOUTH TWO TIMES DAILY 180 Tablet 3 04/02/2023 Active Triamcinolone Acetonide 0.1 % External Cream (Aristocort)Indica tions:Herpes zoster without complication Apply topically to affected area 2 times a day. To affected area. 15 g 5 04/01/2023 Active Calcium-Vitamins C & D 500-10-250 MG-MG-UNIT Oral Tablet Chewable Take by mouth. Activ e Furosemide 20 MG Oral Tablet (Lasix)Indications :Hypertension goal BP (blood pressure) < 130/80,Edema, unspecified type TAKE 1 TABLET BY MOUTH 3 DAYS PER WEEK 40 Tablet 3 04/17/2023 Active Polyethylene Glycol 3350 17 GM Oral Packet (Miralax) Take 1 Packet by mouth in the morning. Active Mupirocin 2 % External Ointment (Bactroban)Indicat ions:Pressure injury of right buttock, stage 2 (HCC) Apply 0.25 Inches topically to affected area in the morning and 0.25 Inches before bedtime. Apply to buttock sore.. 22 g 06/26/2023 Active Additional Information Patient not taking.Reported on 09/25/2023 clonazePAM 0.5 MG Oral Tablet (KlonoPIN) TAKE 1 TABLET BY MOUTH EVERY DAY AT BEDTIME 30 Tablet 2 07/17/2023 Active Xeljanz XR 11 MG Oral Tablet Extended Release 24 Hour (Tofacitinib Citrate ER) Take 1 tablet by mouth once a day. 90 Tablet 1 07/19/2023 Active Gabapentin 300 MG Oral Capsule (Neurontin)Indicat ions:Spinal stenosis of lumbar region with neurogenic claudication Take 1 Capsule by mouth in the morning and 1 Capsule before bedtime. 180 Capsule 3 08/21/2023 Active Ocuvite-Lutein Oral Tablet Take by mouth. Active iVIZIA Dry Eyes 0.5 % Ophthalmic Solution (Povidone (PF)) Instill into eye. Active Vitamin C ER 500 MG Oral Capsule Extended Release Take by mouth. Acti ve Vitamin D-[address] 25 MCG (1000 UT) Oral Tablet (Cholecalciferol) Take 1 Tablet by mouth in the morning. Active Dicyclomine HCl 10 MG Oral Capsule (Bentyl) Take 1 Capsule by mouth in the morning and 1 Capsule before bedtime. Active Famotidine 20 MG Oral Tablet (Pepcid) Take 1 Tablet by mouth every night at bedtime. 90 Tablet 3 10/24/2023 Active Rosuvastatin Calcium 40 MG Oral Tablet (Crestor)Indicatio ns:Old myocardial infarct,Dyslipidem ia, goal to be determined TAKE 1 TABLET BY MOUTH EVERY DAY 90 Tablet 2 10/31/2023 Active Additional Information Patient taking differently:40 mg Oral Daily(AM), Takes at bed, Reported on 11/12/2023 Xeljanz XR 11 MG Oral Tablet Extended Release 24 Hour (Tofacitinib Citrate ER) Take 1 tablet by mouth once a day. 90 Tablet 1 11/04/2023 Active Fluconazole 100 MG Oral Tablet (Diflucan) Take 1 Tablet by mouth in the morning for 10 days. 2 for 1 day, then 1 .. 10 Tablet 11/13/2023 11/23/2023 Active documented as of this encounter (statuses as of 11/13/2023) Active Problems Problem Noted Date Diagnosed Date Rheumatoid arthritis with rh eumatoid factor of multiple sites without organ or systems involvement 09/10/2023 Opioid dependence, uncomplicated 04/10/2023 Atherosclerosis of [place] co ronary artery without angina pectoris 04/10/2023 Immunodeficiency due to drugs 05/08/2022 Sacroiliitis, not elsewhere classified Overweight (BMI 25.0-29.9) 07/10/2021 Compression fracture of T12 vertebra with routin e healing 07/09/2021 High risk for fracture due to osteoporosis by DE XA scan 07/09/2021 Chronic kidney disease, stage 3a 02/20/2021 Overview: Per CKD protocol Post laminectomy syndrome 11/08/2020 Coronary artery disease of [place] artery of [place] heart with stable angina pectoris 08/21/2019 Gastro-esophageal reflux disease without esophag itis 08/21/2019 Supraventricular tachycardia 03/31/2019 Dyslipidemia 03/31/2019 Pancreatic cyst 03/31/2019 Chronic constipation 02/26/2019 AAA (abdominal aortic aneurysm) 01/27/2019 Overview: 3.3 cm AAA noted on ct abd/pel 12/18/18 Status post placement of implantable loop record er 05/13/2018 Paroxysmal VT 02/04/2018 HTN, goal below 130/80 07/26/2014 S/P angioplasty with stent 10/31/2011 Old myocardial infarct 04/06/2009 Arthritis, rheumatoid 07/11/2006 Generalized osteoarthritis 10/30/2000 documented as of this encounter (statuses as of 11/13/2023) Resolved Problems Problem Noted Date Diagnosed Date Resolved Date Type 2 diabetes mellitus wit h peripheral vascular disease 05/08/2022 12/04/2022 Obesity, Class I, BMI 30.0-3 4.9 (see actual BMI) 09/24/2021 06/11/2022 Skin lesions 05/18/2021 07/09/2021 Type 2 diabetes mellitus wit h stage 3a chronic kidney disease and hypertension 01/16/2021 12/04/2022 Overview: Per CKD protocol Hypertensive kidney disease with chronic kidney disease stage III 02/10/2020 01/19/2021 Overview: Per CKD protocol Polyneuropathy 08/21/2019 05/11/2022 Overview: Dm combo code on pl Sacroiliitis 08/21/2019 11/08/2020 Age-related osteoporosis wit hout current pathological fracture 03/31/2019 07/09/2021 Change in bowel habit 01/13/20192019 Overview: Acute. Kidney disease, chronic, sta ge III (GFR 30-59 ml/min) 12/22/2018 02/25/2020 Overview: Per CKD protocol CAD (coronary artery disease) 10/31/2011 11/06/2020 [employer] Other*[id number] 10/31/2011 04/17/2016 Overview: Study Title: Genomic Markers for Patients with Cardiovascular Disease Project # [id number] Chief Engineer Research: Yasemin Timmons MD [phone] [facility] 10/15/2011 01/27/2017 Dyslipidemia, goal to be determined 02/15/2009 09/26/2013 Overview: Per Lipid Taxonomy. Other allergic rhinitis 08/08/200103/2019 Overview: ICD-10 update of inactive term Acute. PURE HYPERCHOLESTEROLEM 10/30/200010/2008 Overview: Per Lipid Taxonomy. documented as of this encounter (statuses as of 11/13/2023) Immunizations Name Administration Dates Next Due COVID-19 mRNA, LNP-s, No Pre serve, 2-Dose Series (Moderna) 05/04/2020,04/04/2020 COVID-19, mRNA, LNP-s, PF, B ooster, 100mcg/0.5mg (Moderna) 03/16/2021 Covid-19, Mrna, Lnp-s, Pf, B ivalent, 50 Mcg, IM, 12 yrs and above (Moderna) 11/21/2021 Pneumococcal Conjugate Vacc, 13 Valent (Prevnar) 04/16/2014 Season Influenza, Quad, PF, Adjuvanted, 65+ Yrs, IM (FLUAD) 12/30/2019 Seasonal Influenza, High Dos e, Trivalent, PF, IM (Fluzone HD) 01/21/2017 Seasonal Influenza, PF, 6 M & above, IM , (FluLaval or Fluzone) 02/04/2018 Seasonal Influenza, Quadriva lent Hd (Fluzone Hd) 12/04/2022,02/20/2022,12/27/2020 Seasonal Influenza, Quadriva lent, No Preserve, IM 03/02/2016,12/27/2014 Seasonal Influenza, Trivalen t, (IIV3), with Preserv, (Fluzone) 01/15/2014,01/08/2013,11/16/2011,2010,01/17/2010,12/25/2007,01/01/2007,1 03/19/2005 Seasonal Influenza, Trivalen t, Adjuvanted, 65+ YRS, PF, (Fluad) 01/05/2019 TDAP (age 10 and older)(Boostrix) 06/11/2023,08/2013 Varicella Zoster Vaccine (Adult) 08/29/2011 Zoster Vaccine Recombinant (Shingrix) 01/05/2019 ,08/19/2018 documented as of this encounter Social History Tobacco Use Types Packs/Day Years Used Date Smoking Tobacco: Former Cigarettes 1 20 0 [birth year]/11/1955 - 03/11/1975 Smokeless Tobacco: Never Comments:No passive smoke ex posure Alcohol Use Standard Drinks/Week Comments Yes 0 (1 standard drink = 0.6 oz pur e alcohol) glass of wine PHQ-2 Answer Date Recorded PHQ Adult Total Score 0 09/10/2023 Hunger Vital Sign Answer Date Recorded Within the past 12 months, y ou worried that your food would run out before you got the money to buy more. Never true 04/09/19 24 Within the past 12 months, t he food you bought just didn't last and you didn't have money to get more. Never true 04/09/2023 Childcare Answer Date Recorded Do you feel overwhelmed with taking care of a child, family member or friend? No 04/09/2023 Does your family need help f inding childcare? (Household - for ages 0-17 years) Not on file 04/09/2023 Clothing Answer Date Recorded Have you been unable to get clothing when it was really needed? No 04/09/2023 Is your family able to get c lothes or diapers when needed? (Household - for ages 0-17 years) Not on file 04/09/2023 Personal Safety Answer Date Recorded Do you feel unsafe or have concerns for your saf ety? No 04/09/2023 Do you have concerns for you r family's safety? (Household - for ages 0-17 years) Not on file 04/09/2023 Utilities Answer Date Recorded Do you have trouble paying y our heating, water, or electric bill? No 04/09/2023 Is your family able to pay t he heat, water, or electric bill? (Household - for ages 0-17 years) Not on file 04/09/2023 Does your family have access to good internet? (Household - for ages 0-17 years) Not on file 04/09/2023 Employment Status Answer Date Recorded Are you unemployed or without regular income? No 04/09/2023 Does the household have a re lar source of income? (Household - for ages 0-17 years) Not on file 04/09/2023 Social Connections Answer Date Recorded How often do you feel lonely or isolated from th ose around you? Never 04/09/2023 Financial Resource Strain Answer Date R ecorded Do you have any trouble payi ng for your medications, or do you think you might in the future? No 04/09/2023 Does your family have troubl e paying for medicine? (Household - for ages 0-17 years) Not on file 04/09/2023 Transportation Needs Answer Date Record ed READ ONLY Do you have troubl e getting a ride to medical visits or work? Never True 04/09/2023 Does your family have a hard time getting a ride to doctors visits? (Household - for ages 0-17 years) Not on file 04/09/2023 Has lack of transportation k ept you from medical appointments, meetings, work, or from getting things needed for daily living? Check all that apply. (Adult - for ages 18 years and over) Not on file 04/09/2023 Do you (or your family) have trouble finding or paying for a ride (transportation)? (Household - for ages 0-17 years) Not on file 04/09/2023 Housing Stability Answer Date Recorded Do you currently live in a s helter or have no steady place to sleep at night? No 04/09/2023 READ ONLY Do you think you a re at risk of becoming homeless? No 04/09/2023 Does your family worry about paying for your home or becoming homeless? (Household - for ages 0-17 years) Not on file 0 04/09/2023 Are you homeless or worried that you might be in the future? (Adult - for ages 18 years and over) Not on file Are you (or your family) wilber eless or worried that you might be in the future? (Household - for ages 0-17 years) Not on file Food Insecurity Answer Date Recorded Do you need food for this week? No 04/09/2023 Are you able to get enough f ood for your family? (Household - for ages 0-17 years) Not on file 04/09/2023 Does your family need food t his week? (Household - for ages 0-17 years) Not on file 04/09/2023 Do you always have enough fo od for your family? (Household - for ages 0-17 years) Not on file 04/09/2023 Sex and Gender Information Value Date Recorded Sex Assigned at Not on file Gender Identity Not on file Sexual Orientation Not on file Job Start Date Occupation Industry Not on file Not on file Not on file documented as of this encounter Last Filed Vital Signs Vital Sign Reading Time Taken Comments Blood Pressure 161/81 11/13/2023 11:07 AM EDT Pulse 58 11/13/2023 11:07 AM EDT Temperature 36.2 C (97.2 F) 11/13/2023 11:07 AM E DT Respiratory Rate 16 11/13/2023 11:07 AM EDT Oxygen Saturation 99% 11/13/2023 11:07 AM EDT Inhaled Oxygen Concentration - - Weight 70.8 kg (156 lb) 11/13/2023 10:10 AM EDT Height 163.8 cm (5' 4.5") 11/13/2023 10:10 AM ED T Body Mass Index 26.36 11/13/2023 10:10 AM EDT documented in this encounter H&P Notes * Lucina Queen, DO - 11/13/2023 10:06 AM EDT Endoscopy Pre-Procedure Assessment Name: Sunita Thomas Date: 11/13/2023 Time: 10:06 AM Procedure(s): Upper GI Endoscopy; with Indication(s) of dysphagia or odynophagia Endoscopy Pre-Procedure Assessment: Prior to the procedure, the patient is identified. The patient's history, medications and allergieshave been reviewed. The patient is competent. The risks and benefits of the proposed procedure and the planned sedation have been discussed with the patient. All questions have been answered and informed consent for the procedure has been obtained. Prior to Admission medications Medication Sig Last Dose Discont. Xeljanz XR 11 MG Oral Tablet Extended Release 24 Hour (Tofacitinib Citrate ER) Take 1 tablet by mouth once a day. 11/12/2023 Rosuvastatin Calcium 40 MG Oral Tablet (Crestor) TAKE 1 TABLET BY MOUTH EVERY DAY Patient taking differently: Take 1 Tablet by mouth in the morning. Takes at bed . 11/12/2023 Dicyclomine HCl 10 MG Oral Capsule (Bentyl) Take 1 Capsule by mouth in the morning and 1 Capsule before bedtime. Past Month Famotidine 20 MG Oral Tablet (Pepcid) Take 1 Tablet by mouth every night at bedtime. 11/12/2023 Vitamin C ER 500 MG Oral Capsule Extended Release Take by mouth. 11/12/2023 Vitamin D-[address] 25 MCG (1000 UT) Oral Tablet (Cholecalciferol) Take 1 Tablet by mouth in the morning. 11/12/2023 iVIZIA Dry Eyes 0.5 % Ophthalmic Solution (Povidone (PF)) Instill into eye. 11/12/2023 Ocuvite-Lutein Oral Tablet Take by mouth. 11/12/2023 Gabapentin 300 MG Oral Capsule (Neurontin) Take 1 Capsule by mouth in the morning and 1 Capsule before bedtime. 11/12/2023 Xeljanz XR 11 MG Oral Tablet Extended Release 24 Hour (Tofacitinib Citrate ER) Take 1 tablet by mouth once a day. 11/12/2023 Polyethylene Glycol 3350 17 GM Oral Packet (Miralax) Take 1 Packet by mouth in the morning. Past Week Furosemide 20 MG Oral Tablet (Lasix) TAKE 1 TABLET BY MOUTH 3 DAYS PER WEEK Past Month Calcium-Vitamins C & D 500-10-250 MG-MG-UNIT Oral Tablet Chewable Take by mouth. 11/12/2023 Metoprolol Succinate ER 25 MG Oral Tablet Extended Release 24 Hour (toPROL XL) TAKE 1 TABLET BY MOUTH TWO TIMES DAILY 11/12/2023 Triamcinolone Acetonide 0.1 % External Cream (Aristocort) Apply topically to affected area 2 times a day. To affected area. Past Week Xeljanz XR 11 MG Oral Tablet Extended Release 24 Hour (Tofacitinib Citrate ER) Take 1 tablet by mouth once a day. 11/12/2023 Isosorbide Mononitrate ER 30 MG Oral Tablet Extended Release 24 Hour (Imdur) TAKE 2 TABLETS BY MOUTH EVERY MORNING Patient taking differently: Reports she is only taking 1 tablet 11/12/2023 Buprenorphine 10 MCG/HR Transdermal Patch Weekly 11/12/2023 Melatonin 3 MG Oral Capsule Take 2 Capsules by mouth at bedtime. 11/12/2023 Aspirin 81 MG Tablet Take 1 Tablet by mouth 3 times a week. 11/12/2023 CALCIUM 500 MG PO TABS Take by mouth. 11/12/2023 clonazePAM 0.5 MG Oral Tablet (KlonoPIN) TAKE 1 TABLET BY MOUTH EVERY DAY AT BEDTIME Over 30 Days Mupirocin 2 % External Ointment (Bactroban) Apply 0.25 Inches topically to affected area in the morning and 0.25 Inches before bedtime. Apply to buttock sore.. Patient not taking: Reported on 09/25/2023 Not Taking traMADol HCl 50 MG Oral Tablet (Ultram) Take 1 Tab by mouth every 6 hours as needed for Pain, Severe. Patient not taking: Reported on 10/24/2023 Not Taking amoxicillin (AMOXIL) 500 MG Capsule Simethicone 125 MG Oral Tablet Chewable Take by mouth. Indications: as needed Patient not taking: Reported on 10/24/2023 Not Taking Review of patient's allergies indicates: Allergen Reactions Morphine Anaphylaxis Codeine Nausea/vomiting Hydroxychloroquine Rash Patient reported red itchy rash to neck after taking medication for 1 day Lisinopril Cough Lyrica [Pregabalin] Edema Other Edema in the feet Shrimp Flavor Nausea/vomiting Sulfa Antibiotics Nausea/vomiting Tape [Adhesive Tape] Itching Ht 1.638 m (5' 4.5") | Wt 70.8 kg (156 lb) | BMI 26.36 kg/m | BSA 1.79 m Physical Exam: Mental Status Examination: alert and oriented. Airway Examination: normal oropharyngeal airway and neck mobility. Respiratory Examination: clear to auscultation. CV Examination: systolic murmur. ASA Grade: III - A patient with severe systemic disease. Abdomen: soft This patient has undergone a preprocedural evaluation. A determination has been made to proceed with the planned procedure under [facility] procedural guidelines and the [facility] Non-Emergent, Elective Medical Services and Treatment Recommendations (published on 06-16-19). The community and hospital prevalence of COVID-19 has been discussed as well as this patient's specific risks associated with SARS-CoV-19 infection. Based upon the clinical acuity and patient-specific care considerations, this procedure is deemed a Tier II - Intermediate acuity treatment or service with either progression or the threat of progressive disease related to the delay in treatment. Not providing the service has the potential for increasing morbidity or mortality. After reviewing the risks and benefits, the patient is deemed in satisfactory condition to undergo the procedure. The anesthesia plan is to use general anesthesia. We have discussed the risks and benefits of upper endoscopy to include bleeding, infection, perforation, discomfort, aspiration and need for follow-up studies. We discussed the increased risk of complications given her age and comorbidmedical problems. Lucina Queen DO 11/13/2023 documented in this encounter Procedure Notes * Candice Mcnair DO - 11/13/2023 10:07 AM EDTAssociated Order(s): UPPER GI ENDOSCOPY [facility] Patient Name: Sunita Thomas Procedure Date: 11/13/2023 10:07 AM Date of : 1935 Admit Type: Outpatient Note Status: Finalized Date of : 1935 Admit Type: Outpatient Age: 88 Room: Endo 2 Gender: Female Note Status: Finalized Procedure: Upper GI endoscopy Indications: Dysphagia Providers: Lucina Queen DO (Doctor) Referring MD: Candice Mcnair (Referring MD), Rama Francois NP (Referring MD) Medicines: General Anesthesia Complications: No immediate complications. Estimated blood loss: Minimal. Procedure: Pre-Anesthesia Assessment: - Prior to the procedure, a History and Physical was performed, and patient medications, allergies and sensitivities were reviewed. The patient's tolerance of previous anesthesia was reviewed. - The risks and benefits of the procedure and the sedation options and risks were discussed with the patient. All questions were answered and informed consent was obtained. - Patient identification and proposed procedure were verified prior to the procedure by the physician, the nurse and the transport coordinator. The procedure was verified in the procedure room. - Pre-procedure physical examination revealed no contraindications to sedation. - ASA Grade Assessment: III - A patient with severe systemic disease. - After reviewing the risks and benefits, the patient was deemed in satisfactory condition to undergo the procedure. - The anesthesia plan was to use general anesthesia. - Immediately prior to administration of medications, the patient was re- assessed for adequacy to receive sedatives. - The heart rate, respiratory rate, oxygen saturations, blood pressure, adequacy of pulmonary ventilation, and response to care were monitored throughout the procedure. - The physical status of the patient was re-assessed after the procedure. After obtaining informed consent, the endoscope was passed under direct vision. All instruments were visually inspected immediately before and after removal from the patient to ensure they are fully intact. Throughout the procedure, the patient's blood pressure, pulse, and oxygen saturations were monitored continuously. The upper GI endoscopy was accomplished without difficulty. The patient tolerated the procedure well. The GIF-H180 Endoscope ([id number]) was introduced through the mouth, and advanced to the third part of duodenum. Findings & Specimens: Localized, white plaques were found in the proximal esophagus. Biopsies were taken with a cold forceps for histology. The pathology specimen was placed into Bottle Number 1. Estimated blood loss was minimal. The middle third of the esophagus, lower third of the esophagus and gastroesophageal junction were normal. A guidewire was placed and the scope was withdrawn. Dilation was performed with a Savary dilator with no resistance at 54 Fr. The dilation site was examined following endoscope reinsertionand showed mild mucosal disruption in the proximal esophagus. Estimated blood loss was minimal. The entire examined stomach was normal. The examined duodenum was normal. Impression: - Esophageal plaques were found, suspicious for candidiasis. Biopsied. - Normal middle third of esophagus, lower third of esophagus and gastroesophageal junction. Dilated to 54 Fr today. - Normal stomach. - Normal examined duodenum. Recommendation: - The patient will be observed post-procedure, until all discharge criteria are met. - Mechanical soft diet today. - Await pathology results. - Diflucan (fluconazole) 100 mg PO daily for 10 days. - Return to GI clinic PRN. If symptoms persist would suggest further evalaution with ENT, Speech pathology and a swalowing study to be define the nature of her sympotms. Lucina Queen DO 11/13/2023 10:39:38 AM This report has been signed electronically. documented in this encounter Nursing Notes * Emerald Guerra RN - 11/13/2023 11:31 AM EDT Patient is alert, pain free and tolerating po fluids prior to discharge. Patient has been visited by Dr. Lucina Queen. Patient has received and demonstrates understanding of discharge instructions. Patient is transported via w/c to private auto accompanied by endo staff into 's staff. Procedure findings and d/c instructions reviewed w/ pt's at the car. Aware to turkey picker Diflucan at [facility]. * Emerald Guerra RN - 11/13/2023 11:14 AM EDT Procedure findings and d/c instructions reviewed w/ pt. Copies given. Verbalized understanding. VSS. Monitor d/c'd. Assisted to chair to dress. Dressing indep at bedside. Call elias in reach. * Emerald Guerra RN - 11/13/2023 10:51 AM EDT HOB upright. Pt sipping water. C/o some pain in upper abd abd w/ first drink. Pain lasted less than20 seconds and then resolved. Pt stated she belched a small amount. Subsequent drinks of water w/o issues. * Emerald Guerra RN - 11/13/2023 10:38 AM EDT Pt received in recovery lying on L side w/ HOB elevated. Sleeping. Abd soft. VSS. Call elias in reach. * Oscar Rutherford RN - 11/13/2023 10:37 AM EDT Specimen(s) and location(s) verified with physician post procedure 10:37 AM Oscar Rutherford RN See anesthesia record for medication administered during procedure. Oscar Rutherford RN Pre cleaning of scope at the bedside started by slot technician. * Joseline Del Rio RN - 11/13/2023 10:11 AM EDT The following pt discharge instructions reviewed with pt prior to prodedure: No driving today. No alcohol today. No signing of legal documents. Rest as much as possible today and can return to normal activities tomorrow. No operating any heavy equipment today. Diet as tolerated. Pt verbalized understanding. documented in this encounter Plan of Treatment Upcoming Encounters Date Type Department Care Team (Late st Contact Info) Description 01/14/2024 11:20 AM EST Office Visit Family Practice [address] [place] [address] [address] [place] [address] Candice Mcnair DO [address] [facility] [place] [address] 03/26/2024 10:00 AM EST Office Visit Gastroenterology, [facility] [address] [place] [address] Rama Francois CRNP [address] [place] [address] 06/29/2024 1:30 PM EDT Office Visit Cardiology, [facility] [address] [place] [address] Sumeet Bergeron MD [address] [place] [address] 10/22/2024 8:45 AM EDT Office Visit Dermatology [facility] [address] [place] [address] Babatunde Yanes MD [address] [place] [address] Pending Results Name Type Priority Associated Diagnoses Date /Time SURGICAL PATHOLOGY Pathology Routine Dysphagia 11/13/2023 10:37 AM EDT Scheduled Orders Name Type Priority Associated Diagnoses Orde r Schedule SURGICAL PATHOLOGY Pathology Routine Dysphagia Release Upon Ordering for 1 Occurrences starting 11/13/2023, 1 completed Scheduled Procedures Name Priority Associated Diagnoses Date/Ti me ESOPHAGOGASTRODUODENOSCOPY ( EGD), FLEXIBLE, TRANSORAL, DIAGNOSTIC Dysphagia 11/13/2023 10:23 AM EDT COLONOSCOPY FLEXIBLE PROXIMA L DIAGNOSTIC Recall History of colon polyps Health Maintenance Due Date Last Done Comments Adult Wellness Visit 04/14/2015 04/14/2014 DXA Scan 09/29/2020 09/29/2018, 04/04/2013, 06/10/2013 CKD PHOS USE SMARTSET 42564 12/21/2021 12/21/2020 Colonoscopy 12/30/2021 12/30/2018, 12/30/2018 COVID-19 Vaccine ( season) 2023 11/21/2021, 03/16/2021, 05/04/2020, Additional history exists Influenza Vaccine (FLU shot) (#1) 2023 12/04/2022, 02/20/2022, 12/27/2020, Additional history exists Albumin/Creatinine Ratio 09/09/2024 09/10/2023 CKD HGB USE SMARTSET 33203 09/09/202409/09, 09/10/2023, 04/01/2023, Additional history exists Depression Screening 09/09/2024 09/10/2023 DTap/Tdap Vaccines (3 - Td or Tdap) 06/10/2033 06/11/2023, 05/14/2013, 11/19/2003 Pneumococcal Vaccine: 65+ Years Completed 04/16/2014, 07/30/2001 Zoster Vaccines Completed 01/05/2019, 08/09, 08/29/2011 VITAMIN D LEVEL ONCE IN A LIFETIME-USE SMARTSET# 34044 Completed 09/10/2023 Diabetic Eye Exam Discontinued 09/17/2023, , 09/26/2021, Additional history exists HPV (Gardasil) Vaccine Aged Out No lo nger eligible based on patient's age to complete this topic Hepatitis B Vaccine Aged Out No longe r eligible based on patient's age to complete this topic MENINGOCOCCAL (MENACTRA/MENVEO) Aged Out No longer eligible based on patient's age to complete this topic documented as of this encounter Medical Devices Implanted Type Area Boat Wrapper Device Identifier Shelf Expiration Date Model / Serial / Lot Lens 19.0 Mx60 - [id number] Implanted:Qty: 1 on 12/28/2015 by Jorge L Alex MD at [facility] Left: Eye [employer] : SURGICAL 02/07/2018 MX60-19.0 / [id number] / [id number] Lens 20.5 Mx60 - [id number] - [id number] Implanted:Qty: 1 on 01/25/2016 by Jorge L Alex MD at OR [facility] [employer]OM[employer] : SURGICAL 03/10/2018 MX60-20.5 / [id number] / [id number] Percutaneous Extension 2201bun - [id number] Implanted:Qty: 1 on 08/05/2020 by Disha Melendez MD at [place] [facility] N/A: Buttocks [employer] 03/30/2022 9009 / / Kit Tined Lead - [id number] Implanted:Qty: 1 on 08/05/2020 by Disha Melendez MD at [place] [facility] N/A: Buttocks [employer] 07/16/2022 1201 / / Neurostimulator - [id number] Implanted:Qty: 1 on 08/15/2020 by Disha Melendez MD at [place] [facility] Right: Back [employer] 11/26/2021 1101 / / documented as of this encounter Procedures Procedure Name Priority Date/Time Associated Diagnosis Comments UPPER GI ENDOSCOPY 11/13/2023 10 :07 AM EDT documented in this encounter Results * UPPER GI ENDOSCOPY (11/13/2023 10:07 AM EDT) 11/13/2023 10:0 7 AM EDT Narrative Procedure Note Candice Mcnair DO - 11/13/2023 10:07 AM EDT [facility] Patient Name: Sunita Thomas Procedure Date: 11/13/2023 10:07 AM Date of : 1935 Admit Type: Outpatient Note Status:Finalized Date of : 1935 Admit Type: Outpatient Age: 88 Room: Endo 2 Gender: Female Note Status: Finalized Procedure: Upper GI endoscopy Indications: Dysphagia Providers: Lucina Queen DO (Doctor) Referring MD: Candice Mcnair (Referring ), Rama Francois NP (Referring MD) Medicines: General Anesthesia Complications: No immediate complications. Estimated blood loss:Minimal. Procedure: Pre-Anesthesia Assessment: - Prior to the procedure, a History and Physicalwas performed, and patient medications, allergies and sensitivities werereviewed. The patient's tolerance of previous anesthesia was reviewed. - The risks and benefits of the procedure and thesedation options and risks were discussed with the patient. All questions wereanswered and informed consent was obtained. - Patient identification and proposed procedurewere verified prior to the procedure by the physician, the nurse and the transport coordinator.The procedure was verified in the procedure room. - Pre-procedure physical examination revealed nocontraindications to sedation. - ASA Grade Assessment: III - A patient with severesystemic disease. - After reviewing the risks and benefits, thepatient was deemed in satisfactory condition to undergo the procedure. - The anesthesia plan was to use generalanesthesia. - Immediately prior to administration ofmedications, the patient was re-assessed for adequacy to receive sedatives. - The heart rate, respiratory rate, oxygensaturations, blood pressure, adequacy of pulmonary ventilation, and response to care weremonitored throughout the procedure. - The physical status of the patient wasre-assessed after the procedure. After obtaining informed consent, the endoscope waspassed under direct vision. All instruments were visually inspected immediatelybefore and after removal from the patient to ensure they are fully intact. Throughout the procedure, the patient's bloodpressure, pulse, and oxygen saturations were monitored continuously. The upper GI endoscopywas accomplished without difficulty. The patient tolerated the procedurewell. The GIF-H180 Endoscope ([id number]) was introduced through the mouth, andadvanced to the third part of duodenum. Findings & Specimens: Localized, white plaques were found in the proximal esophagus.Biopsies were taken with a cold forceps for histology. The pathology specimen was placed into Bottle Number1. Estimated blood loss was minimal. The middle third of the esophagus, lower third of the esophagus andgastroesophageal junction were normal. A guidewire was placed and the scope was withdrawn. Dilationwas performed with a Savary dilator with no resistance at 54 Fr. The dilation site was examinedfollowing endoscope reinsertion and showed mild mucosal disruption in the proximal esophagus. Estimatedblood loss was minimal. The entire examined stomach was normal. The examined duodenum was normal. Impression: - Esophageal plaques were found, suspicious forcandidiasis. Biopsied. - Normal middle third of esophagus, lower third ofesophagus and gastroesophageal junction. Dilated to 54 Fr today. - Normal stomach. - Normal examined duodenum. Recommendation: - The patient will be observed post-procedure,until all discharge criteria are met. - Mechanical soft diet today. - Await pathology results. - Diflucan (fluconazole) 100 mg PO daily for 10days. - Return to GI clinic PRN. If symptoms persistwould suggest further evalaution with ENT, Speech pathology and a swalowing study to bedefine the nature of her sympotms. Lucina Queen DO 11/13/2023 10:39:38 AM This report has been signed electronically. Candice Mcnair DO GASTRO UPPER documented in this encounter Visit Diagnoses Diagnosis Dysphagia Dysphagia, unspecified documented in this encounter Administered Medications Inactive Administered Medications - up to 3 most recent administrations Medication Order MAR Action Action Date Dose Rate Site isolyte-S pH 7.4 infusion Intravenous, at 100 mL/hr, Plasma-LYTE 148, isolyte-S, and isolyte-S pH 7.4 are considered equivalent - including for MAR barcode scanning., CONTINUOUS, Starting on Sat11/13/23 at 1030, Until Sat11/13/23 at 1535, Pre-Op New Bag 11/13/2023 10:25 AM EDT 100 mL/hr documented in this encounter Active and Recently Administered Medications Times are shown in EDT. Continuous Medication Order 11/11/2023 11/12/2023 11/13/2023 isolyte-S pH 7.4 infusion Intravenous, at 100 mL/hr, Plasma-LYTE 148, isolyte-S, and isolyte-S pH 7.4 are considered equivalent - including for MAR barcode scanning., CONTINUOUS, Starting on Sat11/13/23 at 1030, Until Sat11/13/23 at 1535, Pre-Op 1025 (New Bag - Prov ider: Fritz Onofre CRNA)1035 (Anes Intra-Op Fluid - Provider: Fritz Onofre CRNA) documented in this encounter Advance Directives * Full Code (Latest Code Status on File) Date Activated Date Inactivated Comments 08/15/2020 8:23 AM 08/15/2020 2:05 PM This order ref lects the patients wishes and were consensually agreed upon. * Full Code Date Activated Date Inactivated Comments 01/25/2016 10:31 AM 01/25/2016 2:59 PM This orde r reflects the patients wishes and were consensually agreed upon. * Full Code Date Activated Date Inactivated Comments 01/25/2016 8:25 AM 01/25/2016 10:31 AM This orde r reflects the patients wishes and were consensually agreed upon. * Full Code Date Activated Date Inactivated Comments 12/28/2015 9:33 AM 12/28/2015 1:57 PM This order reflects the patients wishes and were consensually agreed upon. * Full Code Date Activated Date Inactivated Comments 12/28/2015 7:39 AM 12/28/2015 9:33 AM This order reflects the patients wishes and were consensually agreed upon. Care Teams Hourly Caregiver Relationship Specialty Start Date End Date Candice Mcnair DO [address] [place] [address] PCP - General Family Medicine 09/09/23 documented as of this encounter
--- OUTSIDE RECORDS SUMMARY | 2023-11-22 11:35 | External Medical Summary | Summary of Care ---
Author Name Unknown Organization [facility] Address [address] [place] [address] Phone [phone] Care Team Providers Care Skiver Uppers Or Linings Name Role Phone DarinCandice diaz Jose Miguel SOLANO Primary Care Provider Reason for Visit * Reason Onset Date Comments Follow Up 10/24/2023 Encounter Details Date Type Department Care Team (Late st Contact Info) Description 10/24/2023 Telephone Gastroenterology, [facility] [address] [facility] [place] [address] Rama Nelson CRNP [address] [facility] [address] Follow Up Allergies Active Allergy Reactions Criticality Noted Date Comments Codeine Nausea/vomiting 03/23/2014 Hydroxychloroquine Rash 07/18/2021 Patient reported red itchy rash to neck after taking medication for 1 day Lisinopril Cough 12/09/2009 Pregabalin Edema Other 09/07/2016 Edema in the feet Morphine Anaphylaxis High 04/10/2011 Shrimp Flavor Nausea/vomiting 12/28/2015 Sulfa Antibiotics Nausea/vomiting 08/09/2000 Adhesive Tape Itching 08/25/2014 documented as of this encounter (statuses as of 11/12/2023) Medications Medication Sig Dispensed Refills Start Date End Date Status CALCIUM 500 MG PO TABS Take by mouth. Active Aspirin 81 MG Tablet Take 1 Tablet by mouth 3 times a week. 34 Tab 5 5 Active Simethicone 125 MG Oral Tablet ChewableIndicatio ns:as needed Take by mouth. Indications: as needed Active amoxicillin (AMOXIL) 500 MG Capsule 4 9 Active traMADol HCl 50 MG Oral Tablet (Ultram) Take 1 Tab by mouth every 6 hours as needed for Pain, Severe. 5 Tab 1 Active Additional Information Patient not taking.Reported on 10/24/2023 Melatonin 3 MG Oral CapsuleIndication s:as needed Take 2 Capsules by mouth at bedtime. Active Buprenorphine 10 MCG/HR Transdermal Patch Weekly 2 Active Isosorbide Mononitrate ER 30 MG Oral Tablet Extended Release 24 Hour (Imdur)Indication s:Coronary artery disease of [place] artery of [place] heart with stable angina pectoris (HCC) TAKE 2 TABLETS BY MOUTH EVERY MORNING 180 Tablet 4 3 Active Additional Information Patient taking differently: Reports she is only taking 1 tablet, Reported on 05/13/2023 Xeljanz XR 11 MG Oral Tablet Extended Release 24 Hour (Tofacitinib Citrate ER) Take 1 tablet by mouth once a day. 90 Tablet 1 3 Active Metoprolol Succinate ER 25 MG Oral Tablet Extended Release 24 Hour (toPROL XL)Indications:Ol d myocardial infarct TAKE 1 TABLET BY MOUTH TWO TIMES DAILY 180 Tablet 3 4 Active Triamcinolone Acetonide 0.1 % External Cream (Aristocort)Indic ations:Herpes zoster without complication Apply topically to affected area 2 times a day. To affected area. 15 g 5 4 Active Calcium-Vitamins C & D 500-10-250 MG-MG-UNIT Oral Tablet Chewable Take by mouth. Activ e Furosemide 20 MG Oral Tablet (Lasix)Indication s:Hypertension goal BP (blood pressure) < 130/80,Edema, unspecified type TAKE 1 TABLET BY MOUTH 3 DAYS PER WEEK 40 Tablet 3 4 Active Polyethylene Glycol 3350 17 GM Oral Packet (Miralax) Take 1 Packet by mouth in the morning. Active Mupirocin 2 % External Ointment (Bactroban)Indica tions:Pressure injury of right buttock, stage 2 (HCC) Apply 0.25 Inches topically to affected area in the morning and 0.25 Inches before bedtime. Apply to buttock sore.. 22 g 4 Active Additional Information Patient not taking.Reported on 09/25/2023 clonazePAM 0.5 MG Oral Tablet (KlonoPIN) TAKE 1 TABLET BY MOUTH EVERY DAY AT BEDTIME 30 Tablet 2 4 Active Xeljanz XR 11 MG Oral Tablet Extended Release 24 Hour (Tofacitinib Citrate ER) Take 1 tablet by mouth once a day. 90 Tablet 1 4 Active Gabapentin 300 MG Oral Capsule (Neurontin)Indica tions:Spinal stenosis of lumbar region with neurogenic claudication Take 1 Capsule by mouth in the morning and 1 Capsule before bedtime. 180 Capsule 3 4 Active Ocuvite-Lutein Oral Tablet Take by mouth. [...] every night at bedtime. 90 Tablet 3 4 Active Rosuvastatin Calcium 40 MG Oral Tablet (Crestor)Indicati ons:Old myocardial infarct,Dyslipide danette, goal to be determined Take 1 Tablet by mouth daily. 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 Sacroiliitis, not elsewhere classified 3 Overweight (BMI 25.0-29.9) 07/10/2021 Compression fracture of T12 vertebra with routin e healing 07/09/2021 High risk for fracture due to osteoporosis by DE XA scan 07/09/2021 Chronic kidney disease, stage 3a 02/20/2021 Overview: Per CKD protocol Post laminectomy syndrome 11/08/2020 Coronary artery disease of n ative artery of [place] heart with stable angina pectoris 08/21/2019 Gastro-esophageal [...] as of this encounter (statuses as of 11/12/2023) Resolved Problems Problem Noted Date Diagnosed Date [...] artery disease) 10/31/2011 11/06/2020 [employer] Other*[id number] 10/31/2011 04/17/2016 Overview: Study Title: Genomic Markers for Patients with Cardiovascular Disease Project # [id number] Break And Load Operator: Yasemin Timmons MD [phone] [facility] 10/15/2011 01/27/2017 Dyslipidemia, goal to be determined 02/15/2009 09/26/2013 Overview: Per Lipid Taxonomy. Other allergic rhinitis 08/08/200103/2019 Overview: ICD-10 update of inactive term Acute. PURE HYPERCHOLESTEROLEM 10/30/200010/2008 Overview: Per Lipid Taxonomy. documented as of this encounter (statuses as of 11/12/2023) Immunizations Name Administration Dates Next Due COVID-19 mRNA, LNP-s, No Pre serve, 2-Dose Series (Moderna) 05/04/2020,04/04/2020 COVID-19, mRNA, LNP-s, PF, B ooster, 100mcg/0.5mg (Moderna) 03/16/2021 Covid-19, Mrna, Lnp-s, Pf, B ivalent, 50 Mcg, IM, 12 yrs and above (Moderna) 11/21/2021 Pneumococcal Conjugate Vacc, 13 Valent (Prevnar) 04/16/2014 Pneumococcal Polysaccharide PPV23 (Pneumovax) 07/30/2001 Season Influenza, Quad, PF, Adjuvanted, 65+ Yrs, IM (FLUAD) 12/30/2019 Seasonal Influenza, High Dos e, Trivalent, PF, IM (Fluzone HD) 01/21/2017 Seasonal Influenza, PF, 6 M & above, IM , (FluLaval or Fluzone) 02/04/2018 Seasonal Influenza, Quadriva lent Hd (Fluzone Hd) 12/04/2022,02/20/2022,12/27/2020 Seasonal Influenza, Quadriva lent, No Preserve, IM 03/02/2016,12/27/2014 Seasonal Influenza, Trivalen t, (IIV3), with Preserv, (Fluzone) 01/15/2014,01/08/2013,11/16/2011,12/05,01/17/2010,12/25/2007,01/01/2007 ,01/17/2006,01/24/2005,12/30/2002,02/08 Seasonal Influenza, Trivalen t, Adjuvanted, 65+ YRS, PF, (Fluad) 01/05/2019 TD - Tetanus/Diptheria (ADULT) 11/19/2003 TDAP (age 10 and older)(Boostrix) 06/11/2023,08/2013 Varicella [...] 04/09/2023 Does the household have a re gular source of income? (Household - for ages [...] on file documented as of this encounter Miscellaneous Notes * Telephone Encounter - Ashlyn Her OSA - 11/12/2023 11:22 AM EDT Scheduled HERBER Bernardo 11/12/2023 11:22 AM * Telephone Encounter - Rama Nelson CRNP - 11/07/2023 2:45 PM EDT Schedulers - pls assist w egd appt RAJNI Keller * Addendum Note - Rama Nelson CRNP - 11/07/2023 2:45 PM EDTAddended by: RAMA NELSON on: 11/07/2023 02:45 PM Modules accepted: Orders * Addendum Note - Verena Jung LPN - 11/07/2023 2:20 PM EDTAddended by: VERENA JUNG on: 11/07/2023 02:20 PM Modules accepted: Orders * Telephone Encounter - Verena Jung LPN - 11/07/2023 2:15 PM EDT Phone call placed to Sunita. She is agreeable to EGD w/ possible esophageal dilation. Rama- pended order for approval * Telephone Encounter - Rama Nelson CRNP - 11/07/2023 12:54 PM EDT If she is willing to have repeat EGD w possible esophageal dilation, I can order it RAJNI Keller * Telephone Encounter - Elba Cordova CMA - 11/07/2023 11:02 AM EDT Called pt to f/u on her sx. Pt states she is still having some issues with her swallowing. She is eating smaller pieces of food. Mainly moist foods. Dry foods still giving her the most trouble. Occasionally she feels like food is getting hung up. Tries drinking water to get the food down and food still feels stuck. Pts bloating symptoms have improved with smaller meals. Informed pt I would forward message to RAJNI for recommendations. * Telephone Encounter - Rama Nelson CRNP - 10/24/2023 10:58 AM EDT Pls call pt in 2 week's time to check on her swallowing function, bloating symptom. RAJNI Keller documented in this encounter Plan of Treatment Upcoming Encounters Date Type Department Care Team (Latest Contact Info) Description 11/13/2023 10:30 AM EDT Hospital Encounter ENDO [facility], Endoscopy Room [facility] [address] [place], [place] [address] Lucina Queen, DO [address] [place], [place] [address] 11/13/2023 10:30 AM EDT - 11/13/2023 11:00 AM EDT Surgery ENDO [facility], Endoscopy Room [facility] [address] [place] [address] Lucina Queen, DO [address] [place] [address] ESOPHAGOGASTRODUODENOSCOPY (EGD), FLEXIBLE, TRANSORAL, DIAGNOSTIC 01/14/2024 11:20 AM EST Office Visit Family Practice [address] [place] [address] 293 [facility] [place] [address] Candice Mcnair DO [address] [place] [address] 03/26/2024 10:00 AM EST Office Visit Gastroenterology , [facility] [address] [place] [address] Rama Nelson CRNP [address] [place] [address] 06/29/2024 1:30 PM EDT Office Visit Cardiology, [facility] [address] [place] [address] Sumeet Bergeron MD [address] [place] [address] 10/22/2024 8:45 AM EDT Office Visit Dermatology [facility] [address] [facility] [place] [address] Babatunde Yanes MD 200 [facility] [place] [address] Scheduled Orders Name Type Priority Associated Diagnoses Orde r Schedule UPPER GI ENDOSCOPY Gastro Upper Routine Dysphagia, unspecified type Ordered: 11/07/2023 Scheduled Procedures Name Priority Associated Diagnoses Date/Ti me ESOPHAGOGASTRODUODENOSCOPY ( EGD), FLEXIBLE, TRANSORAL, DIAGNOSTIC Dysphagia 11/13/2023 10:30 AM EDT COLONOSCOPY FLEXIBLE PROXIMA L DIAGNOSTIC Recall History of colon polyps Health Maintenance Due Date Last Done Comments Adult Wellness Visit 04/14/2015 04/14/2014 DXA Scan 09/29/2020 09/29/2018, 04/2013, 06/10/2013 CKD PHOS USE SMARTSET 19974 12/21/2021 12/21/2020 Colonoscopy 12/30/2021 12/30/2018, 12/30/2018 COVID-19 Vaccine ( season) 2023 11/21/2021, 03/16/2021, 05/04/2020, Additional history exists Influenza Vaccine (FLU shot) (#1) 2023 12/04/2022, 02/20/2022, 12/27/2020, Additional history exists Albumin/Creatinine Ratio 09/09/2024 09/10/2023 CKD HGB USE SMARTSET 27980 09/09/202409/09, 09/10/2023, 04/01/2023, Additional history exists Depression Screening 09/09/2024 09/10/2023 DTap/Tdap Vaccines (3 - Td or Tdap) 06/10/2033 06/11/2023, 05/14/2013, 11/19/2003 Pneumococcal Vaccine: 65+ Years Completed 04/16/2014, 07/30/2001 Zoster Vaccines Completed 01/05/2019, 08/09, 08/29/2011 VITAMIN D LEVEL ONCE IN A LIFETIME-USE SMARTSET# 26411 Completed 09/10/2023 Diabetic Eye Exam Discontinued 09/17/2023, [...] this encounter Medical Devices Implanted Type Area Ornamental Iron Erector Device Identifier Shelf Expiration Date Model / Serial / Lot Lens 19.0 Mx60 - [id number] Implanted:Qty: 1 on 12/28/2015 by Jorge L Alex MD at OR [facility] Left: Eye [employer] : SURGICAL 02/07/2018 MX60-19.0 / [id number] / [id number] Lens 20.5 Mx60 - [id number] - [id number] Implanted:Qty: 1 on 01/25/2016 by Jorge L Alex MD at OR [facility] [employer]OM[employer] : SURGICAL 03/10/2018 MX60-20.5 / [id number] / [id number] Percutaneous Extension 2201bun - [id number] Implanted:Qty: 1 on 08/05/2020 by Disha Melendez MD at [place] [facility] N/A: Buttocks [employer] 03/30/2022 9009 / / Kit Tined Lead - [id number] Implanted:Qty: 1 on 08/05/2020 by Disha Melendez MD at OR [facility] N/A: Buttocks [employer] 07/16/2022 1201 / / Neurostimulator - [id number] Implanted:Qty: 1 on 08/15/2020 by Disha Melendez MD at OR [facility] Right: Back [employer] 11/26/2021 1101 / / documented as of this encounter Visit Diagnoses Diagnosis Dysphagia, unspecified type- Primary Dysphagia Dysphagia, unspecified documented in this encounter Advance Directives * [...] and were consensually agreed upon. Care Teams Skiver Uppers Or Linings Relationship Specialty Start Date End Date Candice Mcnair DO [address] [place] [address] PCP - General Family Medicine 09/09/23 documented as of this encounter
--- OUTSIDE RECORDS SUMMARY | 2023-11-22 11:35 | External Medical Summary | Summary of Care ---
Author Name Unknown Organization [facility] Address [address] [place] [address] Phone [phone] Care Team Providers Care Director Trade Name Role Phone DarinCandice diaz Jose Miguel SOLANO Primary Care Provider Reason for Visit * Reason Onset Date Comments Preop Pt Assessment 11/12/2023 Encounter Details Date Type Department Care Team (Late st Contact Info) Description 11/12/2023 Telephone Pre Surgery Center, [facility] [address] [facility] [place] [address] Lucina Queen DO [address] [facility] [address] Preop Pt Assessment Allergies Active Allergy Reactions Criticality Noted Date [...] 02/07/2015 Active Simethicone 125 MG Oral Tablet ChewableIndications :as needed Take by mouth. Indications: as needed Active amoxicillin (AMOXIL) 500 MG Capsule 4 01/06/2019 Active traMADol HCl 50 MG Oral Tablet (Ultram) Take 1 Tab by mouth every 6 hours as needed for Pain, Severe. 5 Tab 08/05/2020 Active Additional Information Patient not taking.Reported on 10/24/2023 Melatonin 3 MG Oral CapsuleIndications: as needed Take 2 Capsules by mouth at bedtime. 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 To affected area. 15 g 5 04/01/2023 Active Calcium-Vitamins C & D 500-10-250 MG-MG-UNIT Oral Tablet Chewable Take by mouth. Activ e Furosemide 20 MG Oral Tablet (Lasix)Indications: Hypertension goal BP (blood pressure) < 130/80,Edema, unspecified type TAKE 1 TABLET BY MOUTH 3 DAYS PER WEEK 40 Tablet 3 04/17/2023 Active Polyethylene Glycol 3350 17 GM Oral Packet (Miralax) Take 1 Packet by mouth in the morning. Active Mupirocin 2 % External Ointment (Bactroban)Indicati ons:Pressure injury of right buttock, stage 2 (HCC) [...] 07/19/2023 Active Gabapentin 300 MG Oral Capsule (Neurontin)Indicati ons:Spinal stenosis of lumbar region with neurogenic claudication [...] Active Rosuvastatin Calcium 40 MG Oral Tablet (Crestor)Indication s:Old myocardial infarct,Dyslipidemi a, goal to be determined TAKE 1 TABLET BY MOUTH EVERY DAY 90 Tablet 2 10/31/2023 Active Additional Information Patient taking differently:40 mg Oral Daily(AM), Takes at bed, Reported on 11/12/2023 Xeljanz XR 11 MG Oral Tablet Extended Release 24 Hour (Tofacitinib Citrate ER) Take 1 tablet by mouth once a day. 90 Tablet 1 11/04/2023 Active documented as of this encounter (statuses as of 11/12/2023) Active Problems Problem Noted Date Diagnosed Date Rheumatoid arthritis with rh eumatoid factor of multiple sites without organ or systems involvement 09/10/2023 Opioid dependence, uncomplicated 04/10/2023 Atherosclerosis of [place] co ronary artery without angina pectoris 04/10/2023 [...] artery disease of n ative artery of ely shosh[place] heart with stable angina pectoris 08/21/2019 Gastro-esophageal [...] artery disease) 10/31/2011 11/06/2020 [employer] Other*[id number] 10/31/2011 04/17/2016 Overview: Study Title: Genomic Markers for Patients with Cardiovascular Disease Project # [id number] Scissors Grinder: Yasemin Timmons MD [phone] Dyspnea 10/15/2011 01/27/2017 Dyslipidemia, goal to be determined [...] on file documented as of this encounter Plan of Treatment Upcoming Encounters Date Type Department Care Team (Latest Contact Info) Description 11/13/2023 10:30 AM EDT Hospital Encounter ENDO OSS[facility], Endoscopy Room [facility] [address] [place] [phone] Lucina Queen, DO [address] [place] [address] 11/13/2023 10:30 AM EDT - 11/13/2023 11:00 AM EDT Surgery ENDO OSS[facility], Endoscopy Room [facility] [address] [place] [phone] Lucina Queen, DO [address] [place] [address] ESOPHAGOGASTRODUODENOSCOPY (EGD), FLEXIBLE, TRANSORAL, DIAGNOSTIC 01/14/2024 11:20 AM EST Office Visit Family Practice [address] [facility] [place] [address] [place] [phone] Candice Mcnair DO [address] [place] [address] 03/26/2024 10:00 AM EST Office Visit Gastroenterology , [facility] 132 [place] [address] Rama Francois CRNP [address] [place] [address] 06/29/2024 1:30 PM EDT Office Visit Cardiology, [facility] [address] [place] [address] Sumeet Bergeron MD [address] [place] [address] 10/22/2024 8:45 AM EDT Office Visit Dermatology [facility] [address] [place] [address] Babatunde Yanes MD [address] [place] [address] Scheduled Procedures Name Priority Associated Diagnoses Date/Ti me ESOPHAGOGASTRODUODENOSCOPY ( EGD), FLEXIBLE, TRANSORAL, DIAGNOSTIC Dysphagia 11/13/2023 10:30 AM EDT COLONOSCOPY FLEXIBLE PROXIMA L DIAGNOSTIC Recall History of colon polyps Health Maintenance Due Date Last Done Comments Adult Wellness Visit 04/14/2015 04/14/2014 DXA Scan 09/29/2020 09/29/2018, 04/04/2013, 06/10/2013 CKD PHOS USE SMARTSET 99152 12/21/2021 12/21/2020 Colonoscopy 12/30/2021 12/30/2018, 12/30/2018 COVID-19 Vaccine ( season) 2023 11/21/2021, 03/16/2021, 05/04/2020, Additional history exists Influenza Vaccine (FLU shot) (#1) 2023 12/04/2022, 02/20/2022, 12/27/2020, Additional history exists Albumin/Creatinine Ratio 09/09/2024 09/10/2023 CKD HGB USE SMARTSET 60189 09/09/202409/09, 09/10/2023, 04/01/2023, Additional history exists Depression Screening 09/09/2024 09/10/2023 DTap/Tdap Vaccines (3 - Td or Tdap) 06/10/2033 06/11/2023, 05/14/2013, 11/19/2003 Pneumococcal Vaccine: 65+ Years Completed 04/16/2014, 07/30/2001 Zoster Vaccines Completed 01/05/2019, 08/09, 08/29/2011 VITAMIN D LEVEL ONCE IN A LIFETIME-USE SMARTSET# 60936 Completed 09/10/2023 Diabetic Eye Exam Discontinued 09/17/2023, [...] this encounter Medical Devices Implanted Type Area Insulation Worker Apprentice Device Identifier Shelf Expiration Date Model / Serial / Lot Lens 19.0 Mx60 - [id number] Implanted:Qty: 1 on 12/28/2015 by Jorge L Alex MD at OR [facility] Left: Eye [employer] : SURGICAL 02/07/2018 MX60-19.0 / [id number] / [id number] Lens 20.5 Mx60 - [id number] - [id number] Implanted:Qty: 1 on 01/25/2016 by Jorge L Alex MD at OR [facility] [employer]OM[employer] : SURGICAL 03/10/2018 MX60-20.5 / [id number] / [id number] Percutaneous Extension 2201bun - [id number] Implanted:Qty: 1 on 08/05/2020 by Disha Melendez MD at OR [facility] N/A: Buttocks [employer] 03/30/2022 9009 / / Kit Tined Lead - [id number] Implanted:Qty: 1 on 08/05/2020 by Disha Melendez MD at OR [facility] N/A: Buttocks [employer] 07/16/2022 1201 / / Neurostimulator - [id number] Implanted:Qty: 1 on 08/15/2020 by Disha Melendez MD at OR [facility] Right: Back [employer] 11/26/2021 1101 / / documented as of this encounter Advance Directives * Full Code [...] and were consensually agreed upon. Care Teams Director Trade Relationship Specialty Start Date End Date Candice Mcnair DO [address] [place] [address] PCP - General Family Medicine 09/09/23 documented as of this encounter
--- OUTSIDE RECORDS SUMMARY | 2023-11-22 11:35 | External Medical Summary | Summary of Care ---
Author Name Unknown Organization [facility] Address [address] [place] [address] Phone [phone] Care Team Providers Care Pot Reliner Name Role Phone DarinCandice diaz Jose Miguel SOLANO Primary Care Provider Reason for Visit * Reason Onset Date Comments Follow Up 10/24/2023 Encounter Details Date Type Department Care Team (Late st Contact Info) Description 10/24/2023 Telephone Gastroenterology, [facility] [address] [facility] [place] [address] [address] Rama Nelson CRNP [address] [facility] [address] Follow Up Allergies Active Allergy Reactions Criticality [...] as of this encounter (statuses as of 11/07/2023) Medications Medication Sig Dispensed Refills Start Date [...] 24 Hour (Imdur)Indication s:Coronary artery disease of [place] artery of [place] heart with stable angina pectoris (HCC) TAKE [...] as of this encounter (statuses as of 11/07/2023) Active Problems Problem Noted Date Diagnosed Date Rheumatoid arthritis with rh eumatoid factor of multiple sites without organ or systems involvement 09/10/2023 Opioid dependence, uncomplicated 04/10/[address] [place] co ronary artery without angina pectoris 04/10/2023 [...] artery disease of n ative artery of [place]. [place] ir[place] heart with stable angina pectoris 08/21/2019 Gastro-esophageal [...] as of this encounter (statuses as of 11/07/2023) Resolved Problems Problem Noted Date Diagnosed Date [...] artery disease) 10/31/2011 11/06/2020 [employer] Other*[id number] 10/31/2011 04/17/2016 Overview: Study Title: Genomic Markers for Patients with Cardiovascular Disease Project # [id number] Boarding House Manager: Yasemin Timmons MD [phone] Dyspnea 10/15/2011 01/27/2017 Dyslipidemia, goal to be determined 02/15/2009 09/26/2013 Overview: Per Lipid Taxonomy. Other allergic rhinitis 08/08/200103/2019 Overview: ICD-10 update of inactive term Acute. PURE HYPERCHOLESTEROLEM 10/30/200010/2008 Overview: Per Lipid Taxonomy. documented as of this encounter (statuses as of 11/07/2023) Immunizations Name Administration Dates Next Due COVID-19 [...] encounter Miscellaneous Notes * Telephone Encounter - Rama Nelson CRNP - 11/07/2023 2:45 PM EDT Schedulers - pls assist w egd appt RAJNI Keller * Addendum Note - Rama Nelson CRNP - 11/07/2023 2:45 PM EDTAddended by: RAMA NELSON on: 11/07/2023 02:45 PM Modules accepted: Orders * Addendum Note - Verena Rios LPN - 11/07/2023 2:20 PM EDTAddended by: VERENA RIOS on: 11/07/2023 02:20 PM Modules accepted: Orders * Telephone Encounter - Verena Rios LPN - 11/07/2023 2:15 PM EDT Phone call placed to Sunita. She is agreeable to EGD w/ possible esophageal dilation. Rama- pended order for approval * Telephone Encounter - Rama Nelson CRNP - 11/07/2023 12:54 PM EDT If she is willing to have repeat EGD w possible esophageal dilation, I can order it Rama S RAJNI Nelson * Telephone Encounter - Elba Cordova CMA [...] for recommendations. * Telephone Encounter - Rama Nleson CRNP - 10/24/2023 10:58 AM EDT Pls call pt in 2 week's time to check on her swallowing function, bloating symptom. RAJNI Keller documented in this encounter Plan of Treatment Upcoming Encounters Date Type Department Care Team (Late st Contact Info) Description 01/14/2024 11:20 AM EST Office Visit Family [facility] [address] [facility], [address] [place] [address] Candice Mcnair DO [address] [place] [address] 03/26/2024 10:00 AM EST Office Visit Gastroenterology, [facility] 132 [place] [address] Rama Nelson CRNP [address] [place] [address] 06/29/2024 1:30 PM EDT Office Visit Cardiology, [facility] [address] [place] [address] Sumeet Bergeron MD [address] [place] [address] 10/22/2024 8:45 AM EDT Office Visit Dermatology [facility] 200 [facility] [place] [address] Babatunde Yanes MD 200 [place] [address] Scheduled Orders Name Type Priority Associated Diagnoses Orde r Schedule UPPER GI ENDOSCOPY Gastro Upper Routine Dysphagia, unspecified type Ordered: 11/07/2023 Scheduled Procedures Name Priority Associated Diagnoses Date/Ti me COLONOSCOPY FLEXIBLE PROXIMAL DIAGNOSTIC Recall History of colon polyps Health Maintenance Due Date Last Done Comments Adult Wellness Visit 04/14/2015 04/14/2014 DXA Scan 09/29/2020 09/29/2018, 04/04/2013, 06/10/2013 CKD PHOS USE SMARTSET 86768 12/21/2021 12/21/2020 Colonoscopy 12/30/2021 12/30/2018, 12/30/2018 COVID-19 Vaccine ( season) 2022 11/21/2021, 03/16/2021, 05/04/2020, Additional history exists Influenza Vaccine (FLU shot) (#1) 2023 12/04/2022, 02/20/2022, 12/27/2020, Additional history exists Albumin/Creatinine Ratio 09/09/2024 09/10/2023 CKD HGB USE SMARTSET 69318 09/09/202409/09, 09/10/2023, 04/01/2023, Additional history exists Depression Screening 09/09/2024 09/10/2023 DTap/Tdap Vaccines (3 - Td or Tdap) 06/10/2033 06/11/2023, 05/14/2013, 11/19/2003 Pneumococcal Vaccine: 65+ Years Completed 04/16/2014, 07/30/2001 Zoster Vaccines Completed 01/05/2019, 08/09, 08/29/2011 VITAMIN D LEVEL ONCE IN A LIFETIME-USE SMARTSET# 16429 Completed 09/10/2023 Diabetic Eye Exam Discontinued 09/17/2023, [...] this encounter Medical Devices Implanted Type Area Chicken Boner Device Identifier Shelf Expiration Date Model / Serial / Lot Lens 19.0 Mx60 - [id number] Implanted:Qty: 1 on 12/28/2015 by Jorge L Alex MD at OR [facility] Left: Eye [employer] : SURGICAL 02/07/2018 MX60-19.0 / [id number] / [id number] Lens 20.5 Mx60 - [id number] - [id number] Implanted:Qty: 1 on 01/25/2016 by Jorge L Alex MD at OR [facility] [employer]OMB : SURGICAL 03/10/2018 MX60-20.5 / [id number] / [id number] Percutaneous Extension 2201bun - [id number] Implanted:Qty: 1 on 08/05/2020 by Disha Melendez MD at OR [facility] N/A: Buttocks [employer] 03/30/2022 9009 / / Kit Tined Lead - [id number] Implanted:Qty: 1 on 08/05/2020 by Disha Melendez MD at OR [facility] N/A: Buttocks [employer] 07/16/2022 1201 / / Neurostimulator - [id number] Implanted:Qty: 1 on 08/15/2020 by Disha Melendez MD at OR [facility] Right: Back [employer] 11/26/2021 1101 / / documented as of this encounter Visit Diagnoses Diagnosis Dysphagia, unspecified type- Primary documented in this encounter Advance Directives * [...] and were consensually agreed upon. Care Teams Pot Reliner Relationship Specialty Start Date End Date Candice Mcnair DO [address] [place] [address] PCP - General Family Medicine 09/09/23 documented as of this encounter
--- OUTSIDE RECORDS SUMMARY | 2023-11-22 11:35 | External Medical Summary | Summary of Care ---
Author Name Unknown Organization [facility] Address [address] [place] [address] Phone [phone] Care Team Providers Care Fluorescent Lighting Model Maker Name Role Phone DarinCandice diaz Jose Miguel SOLANO Primary Care Provider Reason for Visit * Reason Onset Date Comments Follow Up 10/24/2023 Encounter Details Date Type Department Care Team (Late st Contact Info) Description 10/24/2023 Telephone Gastroenterology, [facility] [address] [facility] [address] [address] Rama Nelson CRNP [address] [facility] [address] Follow Up Allergies Active Allergy Reactions Criticality [...] 24 Hour (Imdur)Indication s:Coronary artery disease of [place] artery of [place] heart with stable angina pectoris (HCC) TAKE [...] 09/10/2023 Opioid dependence, uncomplicated 04/10/2023 Atherosclerosis of [place] co ronary artery without angina pectoris 04/10/2023 [...] artery disease of n ative artery of [place]ukee heart with stable angina pectoris 08/21/2019 Gastro-esophageal [...] artery disease) 10/31/2011 11/06/2020 [employer] Other*[id number] 10/31/2011 04/17/2016 Overview: Study Title: Genomic Markers for Patients with Cardiovascular Disease Project # [id number] American Studies Professor: Yasemin Timmons MD [phone] Dyspnea 10/15/2011 01/27/2017 Dyslipidemia, goal to be [...] as of this encounter Miscellaneous Notes * Addendum Note - Rama Nelson CRNP [...] check on her swallowing function, bloating symptom. RamaRAJNI See documented in this encounter Plan of Treatment Upcoming Encounters Date Type Department Care Team (Late st Contact Info) Description 01/14/2024 11:20 AM EST Office Visit Family Practice 65 [facility] 293 [facility] [place] [address] Candice Mcnair DO [address] [facility], [place] [address] 03/26/2024 10:00 AM EST Office Visit Gastroenterology, [facility] 132 [facility] [place] [address] Rama Nelson CRNP [address] [place] [address] 06/29/2024 1:30 PM EDT Office Visit Cardiology, [facility] [address] [place] [address] Sumeet Bergeron MD [address] [place] [address] 10/22/2024 8:45 AM EDT Office Visit Dermatology [facility] [address] [facility] [place] [address] Babatunde Yanes MD [address] [facility] [place] [address] Scheduled Orders Name Type Priority Associated Diagnoses Orde r Schedule UPPER GI ENDOSCOPY Gastro Upper Routine Dysphagia, unspecified type Ordered: 11/07/2023 Scheduled Procedures Name Priority Associated Diagnoses Date/Ti me COLONOSCOPY FLEXIBLE PROXIMAL DIAGNOSTIC Recall History of colon polyps Health Maintenance Due Date Last Done Comments Adult Wellness Visit 04/14/2015 04/14/2014 DXA Scan 09/29/2020 09/29/2018, 04/2013, 06/10/2013 CKD PHOS USE SMARTSET 32576 12/21/2021 12/21/2020 Colonoscopy 12/30/2021 12/30/2018, 12/30/2018 COVID-19 Vaccine ( season) 2022 11/21/2021, 03/16/2021, 05/04/2020, Additional history exists Influenza Vaccine (FLU shot) (#1) 2023 12/04/2022, 02/20/2022, 12/27/2020, Additional history exists Albumin/Creatinine Ratio 09/09/2024 09/10/2023 CKD HGB USE SMARTSET 95945 09/09/202409/09, 09/10/2023, 04/01/2023, Additional history exists Depression Screening 09/09/2024 09/10/2023 DTap/Tdap Vaccines (3 - Td or Tdap) 06/10/2033 06/11/2023, 05/14/2013, 11/19/2003 Pneumococcal Vaccine: 65+ Years Completed 04/16/2014, 07/30/2001 Zoster Vaccines Completed 01/05/2019, 08/09, 08/29/2011 VITAMIN D LEVEL ONCE IN A LIFETIME-USE SMARTSET# 76453 Completed 09/10/2023 Diabetic Eye Exam Discontinued 09/17/2023, [...] this encounter Medical Devices Implanted Type Area Medical Van Driver Device Identifier Shelf Expiration Date Model / Serial / Lot Lens 19.0 Mx60 - [id number] Implanted:Qty: 1 on 12/28/2015 by Jorge L Alex MD at OR [facility] Left: Eye [employer] : SURGICAL 02/07/2018 MX60-19.0 / [id number] / [id number] Lens 20.5 Mx60 - [id number] - [id number] Implanted:Qty: 1 on 01/25/2016 by Jorge L Alex MD at [facility] [employer]USCH [employer] LOMB : SURGICAL 03/10/2018 MX60-20.5 / [id number] / [id number] Percutaneous Extension 2201bun - [id number] Implanted:Qty: 1 on 08/05/2020 by Disha Melendez MD at OR [facility] N/A: Buttocks [employer] 03/30/2022 9009 / / Kit Tined Lead - [id number] Implanted:Qty: 1 on 08/05/2020 by Disha Melendez MD at OR [facility] N/A: Buttocks [employer] 07/16/2022 1201 / / Neurostimulator - [id number] Implanted:Qty: 1 on 08/15/2020 by Disha Melendez MD at OR [facility] Right: Back [employer] 11/26/2021 1101 [...] and were consensually agreed upon. Care Teams Fluorescent Lighting Model Maker Relationship Specialty Start Date End Date Candice Mcnair DO [address] [place] [address] PCP - General Family Medicine 09/09/23 documented as of this encounter
--- OUTSIDE RECORDS SUMMARY | 2023-11-22 11:36 | External Medical Summary | Summary of Care ---
Author Name Unknown Organization [facility] Address [address] [place] [address] Phone [phone] Care Team Providers Care Printer Floor Covering Assistant Name Role Phone DarinCandice diaz Jose Miguel SOLANO Primary Care Provider Reason for Visit * Reason Onset Date Comments Follow Up 10/24/2023 Encounter Details Date Type Department Care Team (Late st Contact Info) Description 10/24/2023 Telephone Gastroenterology, [facility] [address] [facility] [address] Rama Francois CRNP [address] [facility] [address] Follow Up Allergies Active Allergy Reactions Criticality [...] 24 Hour (Imdur)Indication s:Coronary artery disease of algaaciq artery of algaaciq heart with stable angina pectoris (HCC) TAKE [...] 09/10/2023 Opioid dependence, uncomplicated 04/10/2023 Atherosclerosis of algaaciq co ronary artery without angina pectoris 04/10/2023 [...] artery disease of n ative artery of algaaciq heart with stable angina pectoris 08/21/2019 Gastro-esophageal [...] artery disease) 10/31/2011 11/06/2020 [employer] Other*[id number] 10/31/2011 04/17/2016 Overview: Study Title: Genomic Markers for Patients with Cardiovascular Disease Project # [id number] Cushion Installer: Yasemin Timmons MD [phone] Dyspnea 10/15/2011 01/27/2017 Dyslipidemia, goal to be [...] Miscellaneous Notes * Telephone Encounter - Rama Francois CRNP - 11/07/2023 12:54 PM EDT If [...] for recommendations. * Telephone Encounter - Rama Francois CRNP - 10/24/2023 10:58 AM EDT Pls call pt in 2 week's time to check on her swallowing function, bloating symptom. Rama Garcia RAJNI Francois documented in this encounter Plan of Treatment Upcoming Encounters Date Type Department Care Team (Late st Contact Info) Description 01/14/2024 11:20 AM EST Office Visit Family Practice [address] [place] [address] 293 [facility] [place] [address] Candice Mcnair DO 293 [place] [address] 03/26/2024 10:00 AM EST Office Visit Gastroenterology, [facility] 132 [facility] [place] [address] Rama Francois CRNP [facility] [place] [address] 06/29/2024 1:30 PM EDT Office Visit Cardiology, [facility] [address] [place] [address] Sumeet Bergeron MD 132 [facility] [place] [address] 10/22/2024 8:45 AM EDT Office Visit [facility] [address] [facility] [place] [address] Babatunde Yanes MD [address] [facility] [place] [address] Scheduled Procedures Name Priority Associated Diagnoses Date/Ti me COLONOSCOPY FLEXIBLE PROXIMAL DIAGNOSTIC Recall History of colon polyps Health Maintenance Due Date Last Done Comments Adult Wellness Visit 04/14/2015 04/14/2014 DXA Scan 09/29/2020 09/29/2018, 04/2013, 06/10/2013 CKD PHOS USE SMARTSET 85760 12/21/2021 12/21/2020 Colonoscopy 12/30/2021 12/30/2018, 12/30/2018 COVID-19 Vaccine ( season) 2022 11/21/2021, 03/16/2021, 05/04/2020, Additional history exists Influenza Vaccine (FLU shot) (#1) 2023 12/04/2022, 02/20/2022, 12/27/2020, Additional history exists Albumin/Creatinine Ratio 09/09/2024 09/10/2023 CKD HGB USE SMARTSET 26523 09/09/202409/09, 09/10/2023, 04/01/2023, Additional history exists Depression Screening 09/09/2024 09/10/2023 DTap/Tdap Vaccines (3 - Td or Tdap) 06/10/2033 06/11/2023, 05/14/2013, 11/19/2003 Pneumococcal Vaccine: 65+ Years Completed 04/16/2014, 07/30/2001 Zoster Vaccines Completed 01/05/2019, 08/09, 08/29/2011 VITAMIN D LEVEL ONCE IN A LIFETIME-USE SMARTSET# [id number] Completed 09/10/2023 Diabetic Eye Exam Discontinued 09/17/2023, [...] this encounter Medical Devices Implanted Type Area Commercial Credit Specialist Device Identifier Shelf Expiration Date Model / Serial / Lot Lens 19.0 Mx60 - [id number] Implanted:Qty: 1 on 12/28/2015 by Jorge L Alex MD at OR [facility] Left: Eye [employer] : SURGICAL 02/07/2018 MX60-19.0 / [id number] Lens 20.5 Mx60 - [id number] - [id number] Implanted:Qty: 1 on 01/25/2016 by Jorge L Alex MD at OR [facility] BAUSCH [employer] LOMB : SURGICAL 03/10/2018 MX60-20.5 / [id number] / [id number] Percutaneous Extension 2201bun - [id number] Implanted:Qty: 1 on 08/05/2020 by Disha Melendez MD at OR [facility] N/A: Buttocks [employer] 03/30/2022 9009 / / Kit Tined Lead - [id number] Implanted:Qty: 1 on 08/05/2020 by Disha Melendez MD at OR [facility] N/A: Buttocks [employer] 07/16/2022 1201 / / Neurostimulator - [id number] Implanted:Qty: 1 on 08/15/2020 by Disha Melendez MD at OR [facility] Right: Back [employer] 11/26/2021 1101 [...] and were consensually agreed upon. Care Teams Printer Floor Covering Assistant Relationship Specialty Start Date End Date Candice Mcnair DO [address] [place] [address] PCP - General Family Medicine 09/09/23 documented as of this encounter
--- OUTSIDE RECORDS SUMMARY | 2023-11-22 11:36 | External Medical Summary | Summary of Care ---
Author Name Unknown Organization [facility] Address [address] [place] [address] Phone [phone] Care Team Providers Care Lpn Rn Name Role Phone ZuleymamarciaCandice diaz Jose Miguel SOLANO Primary Care Provider + [phone] Reason for Visit * Reason Comments eRx-Medication Refill Encounter Details Date Type Department Care Team (Late st Contact Info) Description 10/30/2023 Refill Family Practice [facility] [address] [facility] [place] [address] Rafael Wade MD [address] [address] OLD MYOCARDIAL INFARCT (02/04/2009); Dyslipidemia, goal to be determined Allergies Active Allergy Reactions Criticality Noted Date Comments Codeine Nausea/vomiting 03/23/2014 Hydroxychloroquine Rash 07/18/2021 Patient reported red itchy rash to neck after taking medication for 1 day Lisinopril Cough 12/09/2009 Pregabalin Edema Other 09/07/2016 Edema in the feet Morphine Anaphylaxis High 04/10/2011 Shrimp Flavor Nausea/vomiting 12/28/2015 Sulfa Antibiotics Nausea/vomiting 08/09/2000 Adhesive Tape Itching 08/25/2014 documented as of this encounter (statuses as of 10/31/2023) Medications Medication Sig Dispensed Refills Start Date [...] 24 Hour (Imdur)Indication s: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 90 Tablet 3 3 10/31/19 24 Discontinued documented as of this encounter (statuses as of 10/31/2023) Active Problems Problem Noted Date Diagnosed Date Rheumatoid arthritis with rh eumatoid factor of multiple sites without organ or systems involvement 09/10/2023 Opioid dependence, uncomplicated 04/10/2023 Atherosclerosis of galena co ronary artery without angina pectoris 04/10/2023 [...] artery disease of n ative artery of galena heart with stable angina pectoris 08/21/2019 Gastro-esophageal [...] as of this encounter (statuses as of 10/31/2023) Resolved Problems Problem Noted Date Diagnosed Date [...] artery disease) 10/31/2011 11/06/2020 [employer] Other*[id number] 10/31/2011 04/17/2016 Overview: Study Title: Genomic Markers for Patients with Cardiovascular Disease Project # [id number] Grinder Dresser: Yasemin Timmons MD [phone] Dyspnea 10/15/2011 01/27/2017 Dyslipidemia, goal to be determined 02/15/2009 09/26/2013 Overview: Per Lipid Taxonomy. Other allergic rhinitis 08/08/200103/2019 Overview: ICD-10 update of inactive term Acute. PURE HYPERCHOLESTEROLEM 10/30/200010/2008 Overview: Per Lipid Taxonomy. documented as of this encounter (statuses as of 10/31/2023) Immunizations Name Administration Dates Next Due COVID-19 mRNA, LNP-s, No Pre serve, 2-Dose Series (Moderna) 05/04/2020,04/04/2020 COVID-19, mRNA, LNP-s, PF, B ooster, 100mcg/0.5mg (Moderna) 03/16/2021 Covid-19, Mrna, Lnp-s, Pf, B ivalent, 50 Mcg, IM, 12 yrs and above (Moderna) 11/21/2021 Pneumococcal Conjugate Vacc, 13 Valent (Prevnar) 04/16/2014 Season Influenza, Quad, PF, Adjuvanted, 65+ Yrs, IM (FLUAD) 12/30/2019 Seasonal Influenza, PF, 6 M & above, IM , (FluLaval or Fluzone) 02/04/2018 Seasonal Influenza, Quadriva lent Hd (Fluzone Hd) 12/04/2022,02/20/2022,12/27/2020 Seasonal Influenza, Quadriva lent, No Preserve, IM 03/02/2016,12/27/2014 Seasonal Influenza, Split, I IV3, With Preserve, Inj 01/15/2014,01/08/2013,11/16/2011,2010,01/17/2010,12/25/2007,01/01/2007,1 03/19/2005 Seasonal Influenza, Trivalen t, Adjuvanted, 65+ yrs 01/05/2019 Seasonal Influenza, Trivalen t, High Dose, No Preserve, IM 01/21/2017 TDAP (age 10 and older)(Boostrix) 06/11/2023,08/2013 Varicella [...] encounter Miscellaneous Notes * Telephone Encounter - Vazquez Harvey RPh - 10/31/2023 10:49 AM EDT Signed Prescriptions: Disp Refills Rosuvastatin Calcium 40 MG Oral Tablet (Cr*90 Tab*2 Sig: TAKE 1 TABLET BY MOUTH EVERY DAYAuthorizing Provider: CANDICE HOBBS User: VAZQUEZ HARVEY-- documented in this encounter Plan of Treatment Upcoming Encounters Date Type Department Care Team (Late st Contact Info) Description 01/14/2024 11:20 AM EST Office Visit Family Practice [address] [place] [address] [place] [address] Candice Hobbs DO [address] [place] [address] 03/26/2024 10:00 AM EST Office Visit Gastroenterology, [facility] [place] [address] Rama Francois CRNP [address] [place] [address] 06/29/2024 1:30 PM EDT Office Visit Cardiology, [facility] [address] [place] [address] Sumeet Bergeron MD 132 [facility] [place] [address] 10/22/2024 8:45 AM EDT Office Visit Dermatology [facility] 200 [facility] [place] [address] Babatunde Yanes MD 200 [place] [address] Scheduled Procedures Name Priority Associated Diagnoses Date/Ti me COLONOSCOPY FLEXIBLE PROXIMAL DIAGNOSTIC Recall History of colon polyps Health Maintenance Due Date Last Done Comments Adult Wellness Visit 04/14/2015 04/14/2014 DXA Scan 09/29/2020 09/29/2018, 04/04/2013, 06/10/2013 CKD PHOS USE SMARTSET 39383 12/21/2021 12/21/2020 Colonoscopy 12/30/2021 12/30/2018, 12/30/2018 COVID-19 Vaccine ( season) 2022 11/21/2021, 03/16/2021, 05/04/2020, Additional history exists Influenza Vaccine (FLU shot) (#1) 2023 12/04/2022, 02/20/2022, 12/27/2020, Additional history exists Albumin/Creatinine Ratio 09/09/2024 09/10/2023 CKD HGB USE SMARTSET 40618 09/09/202409/09, 09/10/2023, 04/01/2023, Additional history exists Depression Screening 09/09/2024 09/10/2023 DTaP,Tdap,and Td Vaccines (3 - Td or Tdap) 06/10/2033 06/11/2023, 05/14/2013, 11/19/2003 Pneumococcal Vaccine: 65+ Years Completed 04/16/2014, 07/30/2001 Zoster Vaccines Completed 01/05/2019, 08/09, 08/29/2011 VITAMIN D LEVEL ONCE IN A LIFETIME-USE SMARTSET# 79496 Completed 09/10/2023 Diabetic Eye Exam Discontinued 09/17/2023, [...] this encounter Medical Devices Implanted Type Area Movable Bulkhead Installer Device Identifier Shelf Expiration Date Model / Serial / Lot Lens 19.0 Mx60 - [id number] Implanted:Qty: 1 on 12/28/2015 by Jorge L Alex MD at OR [facility] Left: Eye [employer] : SURGICAL 02/07/2018 MX60-19.0 / [id number] / [id number] Lens 20.5 Mx60 - [id number] - [id number] Implanted:Qty: 1 on 01/25/2016 by Jorge L Alex MD at OR [facility] [employer] LOMB : SURGICAL 03/10/2018 MX60-20.5 / [id number] / [id number] Percutaneous Extension 2201bun - [id number] Implanted:Qty: 1 on 08/05/2020 by Disha Melendez MD at [place] [facility] N/A: Buttocks [employer] 03/30/2022 9009 / / Kit Tined Lead - [id number] Implanted:Qty: 1 on 08/05/2020 by Disha Melendez MD at [place] [facility] N/A: Buttocks [employer] 07/16/2022 1201 / / Neurostimulator - [id number] Implanted:Qty: 1 on 08/15/2020 by Disha Melendez MD at [place] [facility] Right: Back [employer] 11/26/2021 1101 / / documented as of this encounter Visit Diagnoses Diagnosis OLD MYOCARDIAL INFARCT (02/04/2009) Old myocardial infarction Dyslipidemia, goal to be determined Other and unspecified hyperlipidemia documented in this encounter Advance Directives * [...] and were consensually agreed upon. Care Teams Lpn Rn Relationship Specialty Start Date End Date Candice Hobbs DO [address] [place] [address] PCP - General Family Medicine 09/09/23 documented as of this encounter
--- OUTSIDE RECORDS SUMMARY | 2023-11-22 11:36 | External Medical Summary | Summary of Care ---
Author Name Unknown Organization [facility] Address [address] [place] [address] Phone [phone] Care Team Providers Care Global Marketing Operations Manager Name Role Phone DarinCandice diaz Jose Miguel SOLANO Primary Care Provider [phone] Reason for Visit * Reason Onset Date Comments Follow Up 10/24/2023 Encounter Details Date Type Department Care Team (Late st Contact Info) Description 10/24/2023 Telephone Gastroenterology, [facility] [address] [facility] [address] [address] Rama Francois CRNP [address] [facility] [address] Follow Up Allergies Active Allergy Reactions Criticality [...] 24 Hour (Imdur)Indication s:Coronary artery disease of [place] artery of [place] heart with stable angina pectoris (HCC) TAKE [...] 09/10/2023 Opioid dependence, uncomplicated 04/10/2023 Atherosclerosis of [place] co ronary artery without angina pectoris 04/10/2023 [...] artery disease of n ative artery of [place]wood valley heart with stable angina pectoris 08/21/2019 Gastro-esophageal [...] artery disease) 10/31/2011 11/06/2020 [employer] Other*[id number] 10/31/2011 04/17/2016 Overview: Study Title: Genomic Markers for Patients with Cardiovascular Disease Project # [id number] Mucker [place]: Yasmein Timmons MD [phone] Dyspnea 10/15/2011 01/27/2017 Dyslipidemia, goal to be [...] encounter Miscellaneous Notes * Addendum Note - Verena Jung LPN - 11/07/2023 2:20 PM EDTAddended by: VERENA JUNG on: 11/07/2023 02:20 PM Modules accepted: Orders * Telephone Encounter - Verena Jung LPN - 11/07/2023 2:15 PM EDT Phone call placed to Sunita. She is agreeable to EGD w/ possible esophageal dilation. Rama- pended order for approval * Telephone Encounter - Rama Francois CRNP - 11/07/2023 12:54 PM EDT If she is willing to have repeat EGD w possible esophageal dilation, I can order it Rama S RAJNI Francois * Telephone Encounter - Elba Cordova CMA [...] 11:20 AM EST Office Visit Family Practice [address] [place] [address] 293 [place] [address] Candice Mcnair DO 293 [place] [address] 03/26/2024 10:00 AM EST Office Visit Gastroenterology, [facility] 132 [facility] [place] [address] Raam Francois CRNP [address] [place] [address] 06/29/2024 1:30 PM EDT Office Visit Cardiology, [facility] 132 [facility] [place] [address] Sumeet Bergeron MD [address] [place] [address] 10/22/2024 8:45 AM EDT Office Visit Dermatology [facility] 200 [facility] [place] [address] Babatunde Yanes MD 200 [facility] [place] [address] Scheduled Procedures Name Priority Associated Diagnoses Date/Ti me COLONOSCOPY FLEXIBLE PROXIMAL DIAGNOSTIC Recall History of colon polyps Health Maintenance Due Date Last Done Comments Adult Wellness Visit 04/14/2015 04/14/2014 DXA Scan 09/29/2020 09/29/2018, 04/2013, 06/10/2013 CKD PHOS USE SMARTSET 65449 12/21/2021 12/21/2020 Colonoscopy 12/30/2021 12/30/2018, 12/30/2018 COVID-19 Vaccine ( season) 2022 11/21/2021, 03/16/2021, 05/04/2020, Additional history exists Influenza Vaccine (FLU shot) (#1) 2023 12/04/2022, 02/20/2022, 12/27/2020, Additional history exists Albumin/Creatinine Ratio 09/09/2024 09/10/2023 CKD HGB USE SMARTSET 28012 09/09/202409/09, 09/10/2023, 04/01/2023, Additional history exists Depression Screening 09/09/2024 09/10/2023 DTap/Tdap Vaccines (3 - Td or Tdap) 06/10/2033 06/11/2023, 05/14/2013, 11/19/2003 Pneumococcal Vaccine: 65+ Years Completed 04/16/2014, 07/30/2001 Zoster Vaccines Completed 01/05/2019, 08/09, 08/29/2011 VITAMIN D LEVEL ONCE IN A LIFETIME-USE SMARTSET# 64952 Completed 09/10/2023 Diabetic Eye Exam Discontinued 09/17/2023, [...] this encounter Medical Devices Implanted Type Area Camera Storage Clerk Device Identifier Shelf Expiration Date Model / Serial / Lot Lens 19.0 Mx60 - [id number] Implanted:Qty: 1 on 12/28/2015 by Jorge L Alex MD at OR [facility] Left: Eye [employer] : SURGICAL 02/07/2018 MX60-19.0 / [id number] / [id number] Lens 20.5 Mx60 - [id number] - [id number] Implanted:Qty: 1 on 01/25/2016 by Jorge L Alex MD at OR [facility] BAUSCH [employer] LOMB : SURGICAL 03/10/2018 MX60-20.5 / [id number] / [id number] Percutaneous Extension 2201bun - [id number] Implanted:Qty: 1 on 08/05/2020 by Disha Melendez MD at OR [facility] N/A: Buttocks [employer] 03/30/2022 9009 / / Kit Tined Lead - [id number] Implanted:Qty: 1 on 08/05/2020 by Disha Melendez MD at OR [facility] N/A: Buttocks [employer] 07/16/2022 1201 / / Neurostimulator - [id number] Implanted:Qty: 1 on 08/15/2020 by Disha Melendez MD at OR [facility] Right: Back [employer] [...] and were consensually agreed upon. Care Teams Global Marketing Operations Manager Relationship Specialty Start Date End Date Candice Mcnair DO 293 [place] [address] PCP - General Family Medicine 09/09/23 documented as of this encounter
--- OUTSIDE RECORDS SUMMARY | 2023-11-22 11:36 | External Medical Summary | Summary of Care ---
Author Name Unknown Organization [facility] Address [address] [place] [address] Phone [phone] Care Team Providers Care Beveling And Edging Machine Operator Name Role Phone DarinCandice diaz Jose Miguel SOLANO Primary Care Provider [phone] Reason for Visit * Reason Onset Date Comments Follow Up 10/24/2023 Encounter Details Date Type Department Care Team (Late st Contact Info) Description 10/24/2023 Telephone Gastroenterology, [facility] [address] [address] Rama Francois CRNP [address] [facility] [address] Follow Up Allergies Active Allergy Reactions Criticality [...] 24 Hour (Imdur)Indication s:Coronary artery disease of apache artery of apache heart with stable angina pectoris (HCC) TAKE [...] 09/10/2023 Opioid dependence, uncomplicated 04/10/2023 Atherosclerosis of apache co ronary artery without angina pectoris 04/10/2023 [...] artery disease of n ative artery of apache heart with stable angina pectoris 08/21/2019 Gastro-esophageal [...] artery disease) 10/31/2011 11/06/2020 [employer] Other*[id number] 10/31/2011 04/17/2016 Overview: Study Title: Genomic Markers for Patients with Cardiovascular Disease Project # [id number] [employer]: Yasemin Timmons MD [phone] Dyspnea 10/15/2011 01/27/2017 Dyslipidemia, goal to be [...] encounter Miscellaneous Notes * Telephone Encounter - Elba Cordova CMA [...] AM EST Office Visit Family Practice [address] [facility] [place] 293 [place] [address] Candice Mcnair DO 293 [place] [address] 03/26/2024 10:00 AM EST Office Visit Gastroenterology, [facility] 132 [place] [address] Rama Francois CRNP 132 [place] [address] 06/29/2024 1:30 PM EDT Office Visit Cardiology, [facility] [address] [place] [address] Sumeet Bergeron MD 132 [place] [address] 10/22/2024 8:45 AM EDT Office Visit Dermatology [facility] 200 [place] [address] Babatunde Yanes MD [address] [place] [address] Scheduled Procedures Name Priority Associated Diagnoses Date/Ti me COLONOSCOPY FLEXIBLE PROXIMAL DIAGNOSTIC Recall History of colon polyps Health Maintenance Due Date Last Done Comments Adult Wellness Visit 04/14/2015 04/14/2014 DXA Scan 09/29/2020 09/29/2018, 0404/2013, 06/10/2013 CKD PHOS USE SMARTSET 71198 12/21/2021 12/21/2020 Colonoscopy 12/30/2021 12/30/2018, 12/30/2018 COVID-19 Vaccine ( season) 2022 11/21/2021, 03/16/2021, 05/04/2020, Additional history exists Influenza Vaccine (FLU shot) (#1) 2023 12/04/2022, 02/20/2022, 12/27/2020, Additional history exists Albumin/Creatinine Ratio 09/09/2024 09/10/2023 CKD HGB USE SMARTSET 90358 09/09/202409/09, 09/10/2023, 04/01/2023, Additional history exists Depression Screening 09/09/2024 09/10/2023 DTap/Tdap Vaccines (3 - Td or Tdap) 06/10/2033 06/11/2023, 05/14/2013, 11/19/2003 Pneumococcal Vaccine: 65+ Years Completed 04/16/2014, 07/30/2001 Zoster Vaccines Completed 01/05/2019, 08/09, 08/29/2011 VITAMIN D LEVEL ONCE IN A LIFETIME-USE SMARTSET# [id number] Completed 09/10/2023 Diabetic Eye Exam Discontinued 09/17/2023, [...] encounter Medical Devices Implanted Type Area Commercial Finance Manager Device Identifier Shelf Expiration Date Model / Serial / Lot Lens 19.0 Mx60 - [id number] Implanted:Qty: 1 on 12/28/2015 by Jorge L Alex MD at OR [facility] Left: Eye [employer] : SURGICAL 02/07/2018 MX60-19.0 / [id number] / [id number] Lens 20.5 Mx60 - [id number] - [id number] Implanted:Qty: 1 on 01/25/2016 by Jorge L Alex MD at [facility] [employer]CH [employer] LOMB : SURGICAL 03/10/2018 MX60-20.5 / [id number] / [id number] Percutaneous Extension 2201bun - [id number] Implanted:Qty: 1 on 08/05/2020 by Disha Melendez MD at [facility] N/A: Buttocks [employer] 03/30/2022 9009 / / Kit Tined Lead - [id number] Implanted:Qty: 1 on 08/05/2020 by Disha Melendez MD at OR [facility] N/A: Buttocks [employer] 07/16/2022 1201 / / Neurostimulator - [id number] Implanted:Qty: 1 on 08/15/2020 by Disha Melendez MD at OR [facility] Right: Back [employer] [...] and were consensually agreed upon. Care Teams Beveling And Edging Machine Operator Relationship Specialty Start Date End Date Candice Mcnair DO [address] [place] [address] PCP - General Family Medicine 09/09/23 documented as of this encounter
--- OUTSIDE RECORDS SUMMARY | 2023-11-22 11:36 | External Medical Summary | Continuity of Care Document ---
Author Name Unknown Organization [place] [id number] Address [address] [place] [phone] Care Team Providers Care Electroneurodiagnostic Technologist Name Role Phone Rafael Wade Primary Care Physician [phone] [id number] Date(s): 10/31/23 - 10/31/23 [facility] [address] [place] [id number] [facility] Medicine [address] [place] [address] Encounter Diagnosis S/P foot surgery(Discharge Diagnosis) - 10/31/23 Peripheral vascular disease(Discharge Diagnosis) - 10/31/23 Discharge Disposition: Home or Self Care Attending Physician: GENET Faustin Christina L Allergies, Adverse Reactions, Alerts Substance Criticality Severity Reaction Reaction Severity Status codeine nausea Active lisinopril nausea Active traMADol nausea Active benzonatate nausea Active sulfa drugs HIVES Active Adhesive bandage rash Act le shrimp nausea Active Assessment and Plan Extracted from: Title:Follow Up Visit Author:GENET Faustin, William Maurer Date:10/31/23 1.S/P foot surgery patient tocontinue regular activity level with supportive shoe gear dressings removed and incisions cleanedwith Hibiclens,area of right distal leg abrasion cleaned with Hibiclens dressings re appliedconsisting ofgauze dressings to be continued for 3 days and then discontinue no calf pain noted and discussed signs of a DVT continue Tylenol/ibuprofen for pain follow upSeptember 11 at 2:30 PM 2.Peripheral vascular disease Medications Albuterol (Eqv-ProAir HFA) 90 mcg/inh inhalation aerosol Start: 06/15/21 12:51:00 PM EDT Start Date: 06/15/21 Status: Ordered amLODIPine 2.5 mg oral tablet Start: 06/15/21 12:50:00 PM EDT, 1 tab, PO, Daily Start Date: 06/15/21 Status: Ordered buprenorphine 15 mcg/hr transdermal film, extended release Start: 04/12/22 10:38:00 AM EST Start Date: 04/12/22 Status: Ordered clonazePAM 0.5 mg oral tablet Start: 06/15/21 12:51:00 PM EDT, 1 tab, PO, qhs Start Date: 06/15/21 Status: Ordered famotidine 20 mg oral tablet Start: 06/15/21 12:49:00 PM EDT, 1 tab, PO, Daily Start Date: 06/15/21 Status: Ordered fluoride 1.1% topical paste Start: 06/15/21 11:57:00 AM EDT Start Date: 06/15/21 Status: Ordered furosemide 20 mg oral tablet Start: 06/15/21 12:49:00 PM EDT, 1 tab, PO, Daily Start Date: 06/15/21 Status: Ordered gabapentin 300 mg oral capsule Start: 06/15/21 12:51:00 PM EDT, 2 cap, PO, Daily Start Date: 06/15/21 Status: Ordered hydroCHLOROthiazide 25 mg oral tablet Start: 06/15/21 12:51:00 PM EDT, 1 tab, PO, bid Start Date: 06/15/21 Status: Ordered isosorbide mononitrate 30 mg oral tablet, extended release Start: 06/15/21 12:49:00 PM EDT, 1 tab, PO, qAM Start Date: 06/15/21 Status: Ordered Keflex 500 mg oral capsule Start: 09/26/23 3:12:00 PM EDT, 1 cap, PO, tid, Disp# 21 cap, Refills: 0, Begin October 09 continue taking until completed, Pharmacy: [id number] Start Date: 09/26/23 Stop Date: 10/03/23 Status: Ordered losartan 50 mg oral tablet Start: 06/15/21 12:50:00 PM EDT, 1 tab, PO, bid Start Date: 06/15/21 Status: Ordered meloxicam 7.5 mg oral tablet Start: 06/15/21 11:57:00 AM EDT, 1 tab, PO, Daily Start Date: 06/15/21 Status: Ordered Metoprolol Succinate ER 25 mg oral tablet, extended release Start: 06/15/21 12:50:00 PM EDT, 1 tab, PO, Daily Start Date: 06/15/21 Status: Ordered omeprazole 40 mg oral delayed release capsule Start: 06/15/21 12:51:00 PM EDT, 1 cap, PO, Daily Start Date: 06/15/21 Status: Ordered predniSONE 5 mg oral tablet TAKE 1 TABLET BY MOUTH EVERY DAY Start Date: 09/14/21 Status: Ordered rosuvastatin 40 mg oral tablet Start: 06/15/21 12:49:00 PM EDT, 1 tab, PO, Daily Start Date: 06/15/21 Status: Ordered Xeljanz XR 11 mg oral tablet, extended release Start: 06/15/21 12:49:00 PM EDT Start Date: 06/15/21 Status: Ordered Mental Status 10/31/23 Barriers to Learning one year None evide nt Mandatory Health Literacy Documentation Yes Health Literacy Communication Barriers N ever Primary Language Persian Problem List Condition Confirmation Course Effective Dates Status Health St atus Informant Callus Confirmed Active Hammertoe, bilateral Confirmed Active S/P foot surgery Confirmed Active Tinea unguium Confirmed Active Peripheral vascular disease Confirmed Active Ulcer of left second toe Confirmed Active Diagnosis Diagnosis Type Effective Dates Health Status Clinical Service Informant S/P foot surgery Discharge Diagnosis 10/31/23 Non-Specified Peripheral vascular disease Discharge Diagnosis 10/31/23 Non-Specified Social History Social History Type Response Smoking Status Never smoked cigaret juan luis Sex Female Sex Representation Female (finding) Ortho Outpt Note * GENET Faustin, Georgia Maurer: PERFORM Event Display: Ortho Outpt Note Authored Date: [id number] Chief Complaint follow-up b/l feet Primary Care Provider MD Sheri, Rafael Richard Subjective Patient is a very pleasant 88-year-old femalepresenting today forpostop evaluation status post flexor tenotomybilateral second and third digits. Postop visit #2. Date of surgeryAugust 2023. Postop day#20 Patient is doing well has no acute concerns at today's follow-up visit. She notes that she stopped applying the dressing on her right legon Saturday or Saturdaythe area has felt much better Review of Systems Peripheral vascular disease Objective Physical Exam Problem focused bilateral feet: Dorsalis pedis pulse palpablebilateral,posterior tibial pulse nonpalpablehistory of PAD last saw Dr. Duron 2021.Capillary fill time less than 3 seconds skin turgor is good toe digits ofboth feetpedal hair is noted to be absent. Patient hasneurovascular statusdecreasedin knownneuropathy related to back issues. History of severely contracted digits 2 through 5 bilateral feetpatient now wearing brace for dropfoot right side. Status post right foot second and third digit flexor tenotomy percutaneousincisions well-healedimprovement of position of toenoted postop Status post left foot second and third digit flexor tenotomy, percutaneousincision well-healed improvement of position of toe postop Toenails of digits 1 through 5bilateral feet cared for October 16, 2023 visit Patient has no pain of the calf calfs are supple without swelling no signs consistent with a DVT. Patient had a small abrasion to therightdistalleg secondary to thesteriledressings area well-healed Images 2023-10-31 13:12:24 2023-10-31 13:12:51 2023-10-31 13:13:27 Assessment/Plan 1.S/P foot surgery patient tocontinue regular activity level with supportive shoe gear dressings removed and incisions cleanedwith Hibiclens,area of right distal leg abrasion cleanedwith Hibiclens dressings re appliedconsisting ofgauze dressings to be continued for 3 days and then discontinue no calf pain noted and discussed signs of a DVT continue Tylenol/ibuprofen for pain follow upSeptember 11 at 2:30 PM 2.Peripheral vascular disease Electronic Signature on File Electronically Reviewed/Signed by: [place] Faustin DPM Author Signature Dt/Tm:10/31/2023 01:23 PM Division of Sports Medicine CLR Patient Care team information Care Team Personnel Name: DO Slo Jason D Position: Physician - Cardiology Member Role: Lifetime Relationship Address: [address] [place] [id number] Name: MD Wade Anthony J Position: Referring DIRECT Member Role: Primary Care Provider Address: [facility] [address] [place] [address]
--- OUTSIDE RECORDS SUMMARY | 2023-11-22 11:37 | External Medical Summary | Continuity of Care Document ---
Author Name Unknown Organization [place] [id number] Address [address] [place] [phone] Care Team Providers Care Cloth Grader Name Role Phone Rafael Wade Primary Care Physician [phone] [facility] [id number] Date(s): 10/16/23 - 10/16/23 [facility] [address] [place] [id number] [facility] Medicine [address] [place] [id number] Encounter Diagnosis S/P foot surgery(Discharge Diagnosis) - 10/16/23 Tinea unguium(Discharge Diagnosis) - 10/16/23 Peripheral vascular disease(Discharge Diagnosis) - 10/16/23 Discharge Disposition: Home or Self Care Attending Physician: GENET Faustin Christina L Referring Physician: GENET Faustin Christina L Allergies, Adverse Reactions, Alerts Substance Criticality Severity Reaction Reaction Severity Status codeine nausea Active lisinopril nausea Active benzonatate nausea Active sulfa drugs HIVES Active Adhesive bandage rash Act le shrimp nausea Active traMADol nausea Active Assessment and Plan Extracted from: Title:Follow Up Visit Author:GENET Faustin, William Maurer Date:10/16/23 1.S/P foot surgery patient to continue decrease activity levelshe may transition back to her comfortableopen toed sandals. dressings removed and incisions cleanedwith Hibiclens,area of right distal leg abrasion cleaned with Hibiclens dressings re appliedconsisting of Band-Aids to the incision sitesand Adaptic gauze roll gauze over the abrasion to the right distal leg sutures removedwithout complications no calf pain noted and discussed signs of a DVT continue Tylenol/ibuprofen for pain follow Chio 22 at 1:15 PM 2.Tinea unguium -Patient unable to provide self care to toenails due toPVD - verbal consent obtained for debridement -Recommend toenail debridement -Patient had toenails of bilateral digits 1-5 debrided using nail nippers to tolerance, no bleeding noted -Patient instructed to use emery board to nails once per week -Patient had no ingrown toenails or infection noted 3.Peripheral vascular disease Medications Albuterol (Eqv-ProAir HFA) 90 [...] October 09 continue taking until completed, Pharmacy: [id number] Start Date: 09/26/23 Stop [...] Start Date: 06/15/21 Status: Ordered Mental Status 10/16/23 Barriers to Learning one year None evide nt Mandatory Health Literacy Documentation Yes Health Literacy Communication Barriers N ever Primary Language Citizen Of [place] Problem List Condition Confirmation Course Effective Dates Status Health St atus Informant Callus Confirmed Active Hammertoe, bilateral Confirmed Active S/P foot surgery Confirmed Active Tinea unguium Confirmed Active Peripheral vascular disease Confirmed Active Ulcer of left second toe Confirmed Active Diagnosis Diagnosis Type Effective Dates Health Status Clinical Service Informant S/P foot surgery Discharge Diagnosis 10/16/23 Non-Specified Tinea unguium Discharge Diagnosis 10/16/23 Non-Specified Peripheral vascular disease Discharge Diagnosis 10/16/23 Non-Specified Social History Social History Type Response Smoking Status Never smoked cigaret juan luis Sex Female Sex Representation Female (finding) Ortho Outpt Note * Palacios-McnamaraGENET schroeder Christina L: PERFORM Event Display: Ortho Outpt Note Authored Date: [id number] Chief Complaint b/l foot post-op Primary Care Provider MD Sheri, Rafael Richard Referring Provider GENET Faustin Christina L Subjective Patient is a very pleasant 88-year-old femalepresenting today forpostop evaluation status post flexor tenotomybilateral second and third digits. Postop visit #1. Date of surgeryAugust 2023. Postop day #5 Patient is doing wellshe feels some minor discomfortsecondary to the surgeryshe has been taking her antibiotic otherwise she is having no other areas of discrete tenderness or pain. Review of Systems Peripheral vascular disease Objective [...] foot second and third digit flexor tenotomy percutaneoussuture intact no dehiscence no cellulitis no drainageboth sutures removed today without complications toe and mildly improved position. Status post left foot second and third digit flexor tenotomy, percutaneoussuture intact with no dehiscence no drainage no cellulitissuture removed without complications. Toenails of digits 1 through 5bilateral feet with elongationdiscolorationdystrophy thickeningand painrecommend debridement Patient has no pain of the calf calfs are supple without swelling no signs consistent with a DVT. Patient had a small abrasion to therightdistalleg secondary to thesteriledressings that were applied to protect her feet during surgeryareas stable and healing there is a scab present with no cellulitis and no drainage. Assessment/Plan 1.S/P foot surgery patient to continue decrease activity levelshe may transition back to her comfortableopen toed sandals. dressings removed and incisions cleanedwith Hibiclens,area of right distal leg abrasion cleanedwith Hibiclens dressings re appliedconsisting of Band-Aids to the incision sitesand Adaptic gauze roll gauze over the abrasion to the right distal leg sutures removedwithout complications no calf pain noted and discussed signs of a DVT continue Tylenol/ibuprofen for pain follow Chio 22 at 1:15 PM 2.Tinea unguium -Patient unable to provide self care to toenails due toPVD - verbal consent obtained for debridement -Recommend toenail debridement -Patient had toenails of bilateral digits 1-5 debrided using nail nippers to tolerance, no bleedingnoted -Patient instructed to use emery board to nails once per week -Patient had no ingrown toenails or infection noted 3.Peripheral vascular disease Electronic Signature on File Electronically Reviewed/Signed by: [place] Faustin DPM Author Signature Dt/Tm:10/16/2023 03:15 PM Division of Sports Medicine CLR Patient Care team information Care Team Personnel Name: DO Sol Jason D Position: Physician - Cardiology Member Role: Lifetime Relationship Address: [address] [place] [id number] [place] Name: MD Wade Anthony J Position: Referring DIRECT Member Role: Primary Care Provider Address: [facility] [address] [facility] [place] [address] [place]
--- OUTSIDE RECORDS SUMMARY | 2023-11-22 11:37 | External Medical Summary | Summary of Care ---
Author Name Unknown Organization [facility] Address [address] [place] [address] Phone [phone] Care Team Providers Care System Architect Name Role Phone ZuleymamarciaCandice diaz Primary Care Provider Reason for Visit * Reason Comments Follow Up Pt reports that she is currently getting bloated and has difficulty swallowing. No issues with constipation. Encounter Details Date Type Department Care Team (Latest Contact Info) Description 10/24/2023 10:30 AM EDT Office [facility] [address] [facility] [address] [facility] [address] [facility] [address] Gastroesophageal reflux disease without esophagitis*; Dysphagia, unspecified type; Chronic constipation; Abdominal bloating Allergies Active Allergy Reactions Criticality Noted Date Comments Codeine Nausea/vomiting 03/23/2014 Hydroxychloroquine Rash 07/18/2021 Patient reported red itchy rash to neck after taking medication for 1 day Lisinopril Cough 12/09/2009 Pregabalin Edema Other 09/07/2016 Edema in the feet Morphine Anaphylaxis High 04/10/2011 Shrimp Flavor Nausea/vomiting 12/28/2015 Sulfa Antibiotics Nausea/vomiting 08/09/2000 Adhesive Tape Itching 08/25/2014 documented as of this encounter (statuses as of 10/24/2023) Medications Medication Sig Dispensed Refills Start Date End Date Status CALCIUM 500 MG PO TABS Take by mouth. Active Aspirin 81 MG Tablet Take 1 Tablet by mouth 3 times a week. 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 90 Tablet 1 08/03/2022 Active Rosuvastatin Calcium 40 MG Oral Tablet (Crestor)Indicati ons:Old myocardial infarct,Dyslipide danette, goal to be determined Take 1 Tablet by mouth daily. 90 Tablet 3 11/07/2022 Active Metoprolol Succinate ER 25 MG Oral [...] 07/19/2023 Active Gabapentin 300 MG Oral Capsule (Neurontin)Indica [...] at bedtime. 90 Tablet 3 10/24/2023 Active Famotidine 20 MG Oral Tablet (Pepcid) TAKE 1 TABLET BY MOUTH EVERY DAY AT BEDTIME 90 Tablet 3 12/03/2022 Discontinue d(Refill) documented as of this encounter (statuses as of 10/24/2023) Active Problems Problem Noted Date Diagnosed Date Rheumatoid arthritis with rh eumatoid factor of multiple sites without organ or systems involvement 09/10/2023 Opioid dependence, uncomplicated 04/10/2023 Atherosclerosis of jena co ronary artery without angina pectoris 04/10/2023 [...] artery disease of n ative artery of jena heart with stable angina pectoris 08/21/2019 Gastro-esophageal [...] as of this encounter (statuses as of 10/24/2023) Resolved Problems Problem Noted Date Diagnosed Date [...] artery disease) 10/31/2011 11/06/2020 [employer] Other*[id number] 10/31/2011 04/17/2016 Overview: Study Title: Genomic Markers for Patients with Cardiovascular Disease Project # [id number] Booking Agent: Yasemin Timmons MD [phone] [facility] 10/15/2011 01/27/2017 Dyslipidemia, goal to be determined 02/15/2009 09/26/2013 Overview: Per Lipid Taxonomy. Other allergic rhinitis 08/08/200103/2019 Overview: ICD-10 update of inactive term Acute. PURE HYPERCHOLESTEROLEM 10/30/200010/2008 Overview: Per Lipid Taxonomy. documented as of this encounter (statuses as of 10/24/2023) Immunizations Name Administration Dates Next Due COVID-19 [...] Sign Reading Time Taken Comments Blood Pressure 137/64 10/24/2023 10:36 AM EDT Pulse 70 10/24/2023 10:36 AM EDT Temperature 36.7 C (98.1 F) 10/24/2023 1 0:36 AM EDT Respiratory Rate - - Oxygen Saturation - - Inhaled Oxygen Concentration - - Weight 67.9 kg (149 lb 12.8 oz) 024 10:36 AM EDT Height - - Body Mass Index 26.54 09/25/2023 10:54 AM EDT documented in this encounter Progress Notes * Rama Francois CRNP - 10/24/2023 10:42 AM EDT DATE OF SERVICE: 10/24/23 REFERRING PHYSICIAN: Self CC: Bloating, abd pain HPI: 10/24/23: Less constipated. BM 2x a week. Taking Miralax 1 capful daily if she hasn't had BM that day + fiber 2 caps daily. Starts to have trouble swallowing and regurgitation of dry meats like chicken. + epigastric bloating. No n/v. 06/27/23: Patient's stool reports that she is bloated. Bowels move only once to twice a week. Previous KUB and CT abdomen and pelvis showed that she is constipated. Denies nausea or vomiting. 03/14/2023 - Sunita Thomas is a 88 year old female, seen for acute visit today. She is c/o lowerabd bloating and pain for months. She denies any radiation of pain. No fever, chills, n/v. Its hardfor her to ambulate due to arthritis on her knees. She admits to not ambulate much as home. Bowels move every 4 days, last BM 2 days ago. She takes Miralax 17g daily. She takes Famotidine but not Dicyclomine (last prescribed 10/2022). Previous endoscopy tests reviewed. Past Medical History: Diagnosis Date ALLERGIC RHINITIS NEC 08/08/2001 Arthritis, rheumatoid (HCC) CAD (coronary artery disease) 10/31/2011 Compression fracture of T12 vertebra with routine healing 07/09/2021 Dyspnea 10/15/2011 GENERAL OSTEOARTHROSIS 10/30/2000 [employer] Other*[id number] 10/31/2011 High risk for fracture due to osteoporosis by DEXA scan 07/09/2021 Obesity, Class I, BMI 30.0-34.9 (see actual BMI) 09/24/2021 OLD MYOCARDIAL INFARCT (02/04/2009) 04/06/2009 Osteoarthrosis, unspecified whether generalized or localized, other specified sites Other allergic rhinitis 08/08/2001 ICD-10 update of inactive term Overweight (BMI 25.0-29.9) 07/10/2021 Post laminectomy syndrome 11/08/2020 S/P angioplasty with stent 10/31/2011 Status post placement of implantable loop recorder 05/13/2018 Family History Problem Relation Name Age of Onset Diabetes Mother Heart Disorder Father PA age 75 Heart Disorder Brother PA Other (Other) Son Renal cancer Past Surgical History: Procedure Laterality Date ANGIO-CAROTID/CERBERAL BILAT Angiography, Cebrebral COLONOSCOPY, DIAGNOSTIC (RECTUM) 12/30/2018 serrated adenomatous polyps, diverticulosis, repeat 3 yrs/COLONOSCOPY FLEXIBLE PROXIMAL DIAGNOSTIC performed by Jay Hollis MD at ENDOSCOPY [facility] COLONOSCOPY, GI REFERRAL OP 05/10/2003 Normal exam.Repeat every 10 years. CORONARY ANGIOGRAPHY W/LEFT HEART CATH 10/31/2011 CORONARY ANGIOGRAPHY W/LEFT HEART CATH performed by Medardo Castro MD at [facility] DEXA SCAN/BONE MINERAL AXIAL 12/10/2001 lumbar -0.4; hip -3.3 EGD, FLEXIBLE, DIAGNOSTIC 08/17/2016 normal/ESOPHAGOGASTRODUODENOSCOPY (EGD), FLEXIBLE, TRANSORAL, DIAGNOSTIC performed by Kandis Mahmood DO at ENDOSCOPY [facility] EGD, FLEXIBLE, DIAGNOSTIC 11/08/2022 hiatal hernia / ESOPHAGOGASTRODUODENOSCOPY (EGD), FLEXIBLE, TRANSORAL, DIAGNOSTIC performed by Jay Hollis MD at ENDOSCOPY [facility] EGD, W/ENDOSCOPIC US 10/14/2019 benign pancreatic cyst / ESOPHAGOGASTRODUODENOSCOPY (EGD), FLEXIBLE, TRANSORAL, ENDOSCOPIC ULTRASOUND performed by Jay Hollis MD at ENDOSCOPY [facility] ELECTROPHYSIOLOGY EVALUATION 12/27/2017 3 CATHETER EP STUDY performed by Sully Vargas IV, MD at [facility] COUNTER STITCHER PAP SCREEN 12/06/2010 Dr Alexandrea dye INSERT OR REPLACE OF PERIPHERAL OR GASTRIC NEUROSTIM PULSE GENERATOR OR RETAIL FIELD MERCHANDISER N/A 08/05/2020 PERIPH NEUROSTIM INSERT/REPLACE performed by Disha Melendez MD at [facility] INSERT OR REPLACE OF PERIPHERAL OR GASTRIC NEUROSTIM PULSE GENERATOR OR RETAIL FIELD MERCHANDISER N/A 08/15/2020 PERIPH NEUROSTIM INSERT/REPLACE performed by Disha Melendez MD at [facility] IOF-DEXA SCAN/BONE MINERAL AX 09/25/2004 dexa scan: osteopenia/spinal stenosis KNEE ARTHROSCOPY, DIAGNOSTIC right 5 years ago;left 9 years ago LIGATE/CUT OVIDUCT(S) Tubal Ligation LUMBAR HEMILAMINECTOMY 1973 MAMMOGRAM - BILATERAL 02/11/2004 Birad code 2/Benign findings MAMMOGRAM - BILATERAL 07/23/2006 benign findings, yearly mammograms appropriate, birad code 2 MAMMOGRAM SCREENING BILATERAL 09/01/2008 birad code 2, benign findings. OTHER (INFORMATION) 08/15/2020 [employer] neurostimulator #1101 PAP SCREEN 07/10/2006 PAP SCREEN 08/04/2008 Dr Alexandrea dye REMOVE CATARACT, INSERT LENS PROSTH Right 01/25/2016 EXTRACAPSULAR CATARACT REMOVAL WITH INTRAOCULAR LENS performed by Jorge L Alex MD at OR [facility] REMOVE TONSILS & ADENOIDS, UNDER 12 Tonsillectomy/Adenoids,<12 Y/O REPAIR BLADDER & VAGINA, CYSTOCELE 01/18/2006 Cystocele Repair Anter. SHOULDER ARTHROSCOPY/REMOVE OBJECT 1968-left; 1971-right VAGINAL HYSTERECTOMY 01/18/2006 Dr juan pablo Lechuga Social History Tobacco Use Smoking status: Former Current packs/day: 0.00 Average packs/day: 1 pack/day for 20.0 years (20.0 ttl pk-yrs) Types: Cigarettes Start date: 03/11/1955 Quit date: 03/11/1975 Years since quittin.6 Smokeless tobacco: Never Tobacco comments: No passive smoke exposure Vaping Use Vaping status: Never Used Substance Use Topics Alcohol use: Yes Comment: glass of wine Drug use: No Review of patient's allergies indicates: Allergen Reactions Morphine Anaphylaxis Codeine Nausea/vomiting Hydroxychloroquine Rash Patient reported red itchy rash to neck after taking medication for 1 day Lisinopril Cough Lyrica [Pregabalin] Edema Other Edema in the feet Shrimp Flavor Nausea/vomiting Sulfa Antibiotics Nausea/vomiting Tape [Adhesive Tape] Itching Current Outpatient Medications Medication Sig Dispense Refill CALCIUM 500 MG PO TABS Take by mouth. Aspirin 81 MG Tablet Take 1 Tablet by mouth 3 times a week. 34 Tab 5 amoxicillin (AMOXIL) 500 MG Capsule 4 Melatonin 3 MG Oral Capsule Take 2 Capsules by mouth at bedtime. Buprenorphine 10 MCG/HR Transdermal Patch Weekly Isosorbide Mononitrate ER 30 MG Oral Tablet Extended Release 24 Hour (Imdur) TAKE 2 TABLETS BY MOUTH EVERY MORNING (Patient taking differently: Reports she is only taking 1 tablet) 180 Tablet 4 Xeljanz XR 11 MG Oral Tablet Extended Release 24 Hour (Tofacitinib Citrate ER) Take 1 tablet by mouth once a day. 90 Tablet 1 Rosuvastatin Calcium 40 MG Oral Tablet (Crestor) Take 1 Tablet by mouth daily. 90 Tablet 3 Famotidine 20 MG Oral Tablet (Pepcid) TAKE 1 TABLET BY MOUTH EVERY DAY AT BEDTIME 90 Tablet 3 Metoprolol Succinate ER 25 MG Oral Tablet Extended Release 24 Hour (toPROL XL) TAKE 1 TABLET BY MOUTH TWO TIMES DAILY 180 Tablet 3 Furosemide 20 MG Oral Tablet (Lasix) TAKE 1 TABLET BY MOUTH 3 DAYS PER WEEK 40 Tablet 3 Polyethylene Glycol 3350 17 GM Oral Packet (Miralax) Take 1 Packet by mouth in the morning. clonazePAM 0.5 MG Oral Tablet (KlonoPIN) TAKE 1 TABLET BY MOUTH EVERY DAY AT BEDTIME 30 Tablet 2 Xeljanz XR 11 MG Oral Tablet Extended Release 24 Hour (Tofacitinib Citrate ER) Take 1 tablet by mouth once a day. 90 Tablet 1 Gabapentin 300 MG Oral Capsule (Neurontin) Take 1 Capsule by mouth in the morning and 1 Capsule before bedtime. 180 Capsule 3 Simethicone 125 MG Oral Tablet Chewable Take by mouth. Indications: as needed (Patient not taking: Reported on 10/24/2023) traMADol HCl 50 MG Oral Tablet (Ultram) Take 1 Tab by mouth every 6 hours as needed for Pain, Severe. (Patient not taking: Reported on 10/24/2023) 5 Tab 0 Triamcinolone Acetonide 0.1 % External Cream (Aristocort) Apply topically to affected area 2 times a day. To affected area. 15 g 5 Calcium-Vitamins C & D 500-10-250 MG-MG-UNIT Oral Tablet Chewable Take by mouth. Mupirocin 2 % External Ointment (Bactroban) Apply 0.25 Inches topically to affected area in the morning and 0.25 Inches before bedtime. Apply to buttock sore.. (Patient not taking: Reported on 09/25/2023) 22 g 0 Ocuvite-Lutein Oral Tablet Take by mouth. iVIZIA Dry Eyes 0.5 % Ophthalmic Solution (Povidone (PF)) Instill into eye. No current facility-administered medications for this visit. REVIEW OF SYSTEMS: See HPI above; All other findings negative. EXAM: Filed Vitals: 10/24/23 1036 BP: 137/64 Pulse: 70 Temp: 36.7 C (98.1 F) Weight: 67.9 kg (149 lb 12.8 oz) GENERAL: Well developed and well nourished in no acute distress. SKIN: No rashes, ulcers, jaundice or spider angiomata. HEENT: Normocephalic, sclera clear. NECK: Supple, trachea midline, no JVD. LUNGS: Clear to auscultation bilaterally, no respiratory distress or accessory muscles used. HEART: Regular rate & rhythm, no murmurs and no gallops. ABDOMEN: Hypoactive bowel sounds, soft and nontender. EXTREMITIES: No palmar erythema, no ankle edema, no skin discoloration, no clubbing, no cyanosis. NEURO: No lateralizing findings. Sensory/Motor grossly normal. ASSESSMENT AND PLAN: Sunita Thomas is a 88 year old female w bloating, and lower abd cramping discomfort likely related to constipation. Constipation improved w Miralax + fiber. C/o dysphagia w epigastric bloating currently. Doesn't take her Pepcid nightly. DDx: uncontrolled GERD vs gastroparesis, IBS. - Miralax 17g daily + Fiber daily - Encouraged to take Pepcid 20mg nightly; will ask nurses to call in 2 week's time to f/u on her dysphagia and bloating symptoms - She would like to defer repeat EGD and also video swallow study - Drink at least 6 to 8 glasses of water daily; increase fiber in diet. 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 She opts to not continue surveillance for this. I spent a total of 30 minutes on the date of service in review of patient's record, and previously obtained information in person and appropriate medical visit, discussion and education of plan, withpatient and/or caregiver, placing orders for tests/referral/procedures as medically necessary and documentation of pertinent clinical information in patient's medical records for their visit today. RETURN TO CLINIC: 3 months or sooner [facility] Gastroenterology, [facility] documented in this encounter Nursing Notes * Verena Jung LPN - 10/24/2023 10:37 AM EDT Chief Complaint Patient presents with Follow Up Pt reports that she is currently getting bloated and has difficulty swallowing. No issues with constipation. documented in this encounter Plan of Treatment Upcoming Encounters Date Type Department Care Team (Late st Contact Info) Description 01/14/2024 11:20 AM EST Office Visit [facility] [address], [address] [place] [address] Candice Mcnair DO [address] [place] [address] 03/26/2024 10:00 AM EST Office Visit Gastroenterology, [facility] [address] [place] [address] Rama Francois CRNP [address] [place] [address] 06/29/2024 1:30 PM EDT Office Visit Cardiology, [facility] [address] [place] [address] Sumeet Bergeron MD [address] [place] [address] 10/22/2024 8:45 AM EDT Office Visit Dermatology [facility] [address] [facility] [place] [address] Babatunde Yanes MD [address] [facility] [place] [address] Scheduled Procedures Name Priority Associated Diagnoses Date/Ti me COLONOSCOPY FLEXIBLE PROXIMAL DIAGNOSTIC Recall History of colon polyps Health Maintenance Due Date Last Done Comments Adult Wellness Visit 04/14/2015 04/14/2014 DXA Scan 09/29/2020 09/29/2018, 04/2013, 06/10/2013 CKD PHOS USE SMARTSET 76330 12/21/2021 12/21/2020 Colonoscopy 12/30/2021 12/30/2018, 12/30/2018 COVID-19 Vaccine ( season) 2022 11/21/2021, 03/16/2021, 05/04/2020, Additional history exists Influenza Vaccine (FLU shot) (#1) 2023 12/04/2022, 02/20/2022, 12/27/2020, Additional history exists Albumin/Creatinine Ratio 09/09/2024 09/10/2023 CKD HGB USE SMARTSET 29369 09/09/202409/09, 09/10/2023, 04/01/2023, Additional history exists Depression Screening 09/09/2024 09/10/2023 DTaP,Tdap,and Td Vaccines (3 - Td or Tdap) 06/10/2033 06/11/2023, 05/14/2013, 11/19/2003 Pneumococcal Vaccine: 65+ Years Completed 04/16/2014, 07/30/2001 Zoster Vaccines Completed 01/05/2019, 08/09, 08/29/2011 VITAMIN D LEVEL ONCE IN A LIFETIME-USE SMARTSET# [id number] Completed 09/10/2023 Diabetic Eye Exam Discontinued 09/17/2023, [...] this encounter Medical Devices Implanted Type Area Time Buyer Device Identifier Shelf Expiration Date Model / Serial / Lot Lens 19.0 Mx60 - [id number] Implanted:Qty: 1 on 12/28/2015 by Jorge L Alex MD at OR [facility] Left: Eye [employer] : SURGICAL 02/07/2018 MX60-19.0 / [id number] / [id number] Lens 20.5 Mx60 - [id number] - [id number] Implanted:Qty: 1 on 01/25/2016 by Jorge L Alex MD at OR [facility] BAUSCH [employer] LOMB : SURGICAL 03/10/2018 MX60-20.5 / [id number] / [id number] Percutaneous Extension 2201bun - [id number] Implanted:Qty: 1 on 08/05/2020 by Disha Melendez MD at OR [facility] N/A: Buttocks [employer] 03/30/2022 9009 / / Kit Tined Lead - [id number] Implanted:Qty: 1 on 08/05/2020 by Disha Melendez MD at OR [facility] N/A: Buttocks [employer] 07/16/2022 1201 / / Neurostimulator - [id number] Implanted:Qty: 1 on 08/15/2020 by Disha Melendez MD at OR [facility] Right: Back [employer] 11/26/2021 1101 / / documented as of this encounter Visit Diagnoses Diagnosis Gastroesophageal reflux disease without esophagitis- Primary Esophageal reflux Dysphagia, unspecified type Chronic constipation Unspecified constipation Abdominal bloating Flatulence, eructation, and gas pain documented in this encounter Advance Directives * [...] and were consensually agreed upon. Care Teams System Architect Relationship Specialty Start Date End Date Candice Mcnair DO [address] [place] [address] PCP - General Family Medicine 09/09/23 documented as of this encounter
--- OUTSIDE RECORDS SUMMARY | 2023-11-22 11:37 | External Medical Summary | Summary of Care ---
Author Name Unknown Organization [facility] Address [address] [place] [address] Phone [phone] Care Team Providers Care Chef Head Name Role Phone DarinCandice diaz Jose Miguel SOLANO Primary Care Provider [phone] Reason for Visit * Reason Onset Date Comments Follow Up 10/24/2023 Encounter Details Date Type Department Care Team (Late st Contact Info) Description 10/24/2023 Telephone Gastroenterology, [facility] [address] [facility] [place] [address] Rama Francois CRNP [address] 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 RAJNI Kellre documented in this encounter Plan of Treatment Upcoming Encounters Date Type Department Care Team (Late st Contact Info) Description 01/14/2024 11:20 AM EST Office Visit Family Practice [address] [place] [address] [address] [place] [address] Candice Mcnair DO [address] [place] [address] 03/26/2024 10:00 AM EST Office Visit Gastroenterology, [facility] [address] [place] [address] Rama Francois CRNP [address] [place] [address] 06/29/2024 1:30 PM EDT Office Visit Cardiology, [facility] [address] [place] [address] Sumeet Bergeron MD [address] [place] [address] 10/22/2024 8:45 AM EDT Office Visit Dermatology [facility] [place] [address] [facility] [place] [address] Babatunde Yanes MD [address] [facility] [place] [address] Scheduled Procedures Name Priority Associated Diagnoses Date/Ti me COLONOSCOPY FLEXIBLE PROXIMAL DIAGNOSTIC Recall History of colon polyps Health Maintenance Due Date Last Done Comments Adult Wellness Visit 04/14/2015 04/14/2014 DXA Scan 09/29/2020 09/29/2018, 04/2013, 06/10/2013 CKD PHOS USE SMARTSET 92602 12/21/2021 12/21/2020 Colonoscopy 12/30/2021 12/30/2018, 12/30/2018 COVID-19 Vaccine ( season) 2022 11/21/2021, 03/16/2021, 05/04/2020, Additional history exists Influenza Vaccine (FLU shot) (#1) 2023 12/04/2022, 02/20/2022, 12/27/2020, Additional history exists Albumin/Creatinine Ratio 09/09/2024 09/10/2023 CKD HGB USE SMARTSET 96459 09/09/202409/09, 09/10/2023, 04/01/2023, Additional history exists Depression Screening 09/09/2024 09/10/2023 DTaP,Tdap,and Td Vaccines (3 - Td or Tdap) 06/10/2033 06/11/2023, 05/14/2013, 11/19/2003 Pneumococcal Vaccine: 65+ Years Completed 04/16/2014, 07/30/2001 Zoster Vaccines Completed 01/05/2019, 08/09, 08/29/2011 VITAMIN D LEVEL ONCE IN A LIFETIME-USE SMARTSET# [id number] Completed 09/10/2023 Diabetic Eye Exam Discontinued 09/17/2023, [...] this encounter Medical Devices Implanted Type Area Buncher Operator Device Identifier Shelf Expiration Date Model / Serial / Lot Lens 19.0 Mx60 - [id number] Implanted:Qty: 1 on 12/28/2015 by Jorge L Alex MD at OR [facility] Left: Eye [employer] : SURGICAL 02/07/2018 MX60-19.0 / [id number] / [id number] Lens 20.5 Mx60 - [id number] - [id number] Implanted:Qty: 1 on 01/25/2016 by Jorge L Alex MD at OR [facility] [employer]OM[employer] : SURGICAL 03/10/2018 MX60-20.5 / [id number] / [id number] Percutaneous Extension 2201bun - [id number] Implanted:Qty: 1 on 08/05/2020 by Disha Melendez MD at [place] [facility] N/A: Buttocks [employer] 03/30/2022 9009 / / Kit Tined Lead - [id number] Implanted:Qty: 1 on 08/05/2020 by Disha Melendez MD at [place] [facility] N/A: Buttocks [employer] 07/16/2022 1201 / / Neurostimulator - [id number] Implanted:Qty: 1 on 08/15/2020 by Disha Melendez [...] and were consensually agreed upon. Care Teams Chef Head Relationship Specialty Start Date End Date Candice Mcnair DO [address] [place] [address] PCP - General Family Medicine 09/09/23 documented as of this encounter
[2023-11-22] MEDS: SODIUM CHLORIDE 0.9% 500 ML IV ONE (11:46)
--- NOTE | 2023-11-22 12:24 | History & Physical Report ---
<Statement entered by Raghav Villela MD - 11/22/23 17:26> Attending Addendum: Case reviewed with the advanced practitioner. I have personally performed a history and physical examination on the patient. I have reviewed the advanced practitioner's documentation on the date of service referenced in note, and I agree with, and take responsibility for the plan of care. Chronic low back and leg pain presenting for ambulatory dysfunction. PT/OT likely placement, will get MRIs T and L spine for completeness, no bowel or bladder incontinence. Date of Service November 22, 2023 Assessment & Plan (1) Ambulatory dysfunction: (2) Bilateral leg weakness: (3) Back pain: Plan: Chronic back pain and chronic BLE pain. Uses walker and lift chair at baseline. Now with increased RLE pain and increased BLE weakness and unable to ambulate Patient is 88-year-old female with PMH CAD s/p stent, HTN, dyslipidemia, paroxysmal SVT, RA, CKD III, GERD, chronic back and extremity pain, and others listed below presented to ER with complaint of leg weakness and ambulatory dysfunction started last night. In ER afebrile, vitals stable. Has thick nail australian in place and intermittent poor wave form of pulse ox but once reading is without hypoxia. No leukocytosis, no significant electrolyte abnormality. Negative influenza, RSV, COVID PCR. CT Head: no acute abnormality CT Lumbar spine: No acute lumbar spine fracture or subluxation. No change in appearance of old thoracolumbar spine fractures since CT of May 08, 2022. Stable postoperative findings following L2-L4 decompression and fusion. Moderate to severe multilevel degenerative disc disease and facet arthrosis within the lumbar spine. Suboptimal evaluation of the central canal given CT technique.. Mild increase in caliber of 4.5 cm infrarenal abdominal aortic aneurysm. Fall precautions Will continue home Butrans patch Obtain MRI thoracic and lumbar spine if able with history stimulator in place PT/OT eval May need to consider ortho spine consult (4) Acute kidney injury superimposed on CKD: Plan: BERNADINE on CKD III Cr: 1.4. Baseline Cr: 1.0 Appears on dry side Hold home Lasix and avoid other nephrotoxic agents IVF Repeat BMP in am (5) Encephalopathy: Plan: Reported more drowsy today CT Head: no acute intracranial abnormality Patient is drowsy but able to converse easily and oriented x 3 Monitor closely. Will continue home pain patch currently but if worsening plan to remove UA pending to r/o UTI (6) Elevated troponin I level: (7) CAD (coronary artery disease): Plan: History CAD s/p stent Troponin: 108 -->119. EKG without acute ST elevation CK: 82 Denies CP, SOB Will trend troponin Echo EKG prn CP EKG in AM If troponins up trending or develops CP consider cardiology consult Continue aspirin, metoprolol succinate, isosorbide, rosuvastatin (8) Chronic diastolic (congestive) heart failure: Plan: Appears hypovolemic currently Hold home Lasix (9) Hx of rheumatoid arthritis: Plan: Continue Xeljanz (10) Paroxysmal supraventricular tachycardia: Plan: Continue metoprolol succinate DVT Prophylaxis Heparin SQ Admit med tele DNR/DNI as per discussion with pt Follows with Dr Mcnair for routine care Pt was seen and care coordinated with Dr Villela. See addendum I spent a total of 80 minutes reviewing notes, outpatient records, labs, medication, coordinating, documenting and providing care for this patient excluding time spent in the performance of separately billed services. History of Present Illness Chief Complaint: Weakness Primary Care Provider: Candice Mcnair DO Patient is 88-year-old female with PMH CAD s/p stent, HTN, dyslipidemia, paroxysmal SVT, RA, CKD III, GERD, chronic back and extremity pain and others listed below presented to ER with complaint of leg weakness. History obtained from patient, patient's , son at bedside as well as outpatient chart review. States at baseline patient has lift chair to get her up and then can ambulate with use of a walker. She reports chronic mid to lower back pain. Reports chronic bilateral lower extremity pain. States has chronic erythema and ecchymosis to bilateral lower legs. Has caregiver and home. Reports yesterday seem to be in normal health. Last evening had some nausea and dry heaves. Denies any vomiting. Reports last evening with increased right lower extremity pain and was unable to ambulate without assistance. She reports she had to go to the bathroom has been got her there with a lot of difficulty. States with the prolonged attempt to get her to the bathroom when she sat down to urinate she also had a bowel movement denies any noted melena or hematochezia or watery stool. Patient had not noted any abdominal pain, fevers or chills. States has bowel stimulator in place to "prevent loss control of bowels". was able to get her in bed last night and this morning was unable to get her up to ambulate as she complaint was unable to move her legs and her legs were weak. Patient states chronic bilateral foot pain as well. She reports increased right lower extremity paresthesias and pain today. Family note patient seems more drowsy today than baseline. Denies fever/chills, diaphoresis, BUTT, dizziness, syncope, vision changes, neck pain, CP, SOB, orthopnea, palpitations, cough, sore throat, choking, otalgia, rhinorrhea, extremity edema, rashes, dysuria, hematuria, urinary frequency. echo: EF: 60-64%, normal LV wall motion, grade 1 diastolic dysfunction, mild TR 08/31/2021 MRI L-spine: Postsurgical changes posterior lumbar osteotomy and posterior lumbar fusion L2-L4, small fluid collection at L3 operative site. Multilevel vertebral body compression fracture lower thoracic and lumbar spine. Multilevel degenerative changes in the thoracolumbar spine with superimposed compression fracture deformity and retropulsion contributing to varying degrees of spinal canal and bilateral neuroforaminal narrowing, left greater than right 10/03/2021 MRI T-spine: Stable compression deformities T12 and L1. Moderate- severe thecal sac stenosis at T12-L1 level, thecal sac stenosis T10-11 associated with disc protrusion and ligamentum flavum redundancy, multilevel foraminal narrowing lower thoracic spine Allergies Allergy/AdvReac Type Severity Reaction Status Date / Time morphine Allergy Severe SHORTNESS Verified 10/11/23 07:11 OF BREATH lisinopril Allergy Intermediate GI SYMPTOMS Verified 10/11/23 07:11 shrimp Allergy Intermediate GI SYMPTOMS Verified 10/11/23 07:11 Sulfa (Sulfonamide Allergy Intermediate HIVES Verified 10/11/23 07:11 Antibiotics) adhesive AdvReac Intermediate TAPE - RASH Verified 10/11/23 07:11 benzonatate AdvReac Mild GI UPSET Verified 10/11/23 07:11 codeine AdvReac Mild NAUSEA Verified 10/11/23 07:11 Home Medications Medication Instructions Recorded Confirmed Type clonazepam 0.5 mg tablet 0.5 mg PO HS PRN Insomnia 11/14/17 11/22/23 History rosuvastatin 40 mg tablet (Crestor) 40 mg PO DAILY 11/14/17 11/22/23 History aspirin 81 mg tablet,delayed 81 mg PO UD 02/06/18 11/22/23 History release (Adult Low Dose Aspirin) gabapentin 300 mg capsule 300 mg PO BID 12/25/18 11/22/23 History famotidine 20 mg tablet 20 mg PO HS 05/29/21 11/22/23 History amoxicillin 500 mg capsule 2,000 mg PO UD PRN Prophylaxis 06/22/21 11/22/23 History isosorbide mononitrate 30 mg 30 mg PO QAM 04/19/22 11/22/23 History tablet,extended release 24 hr tofacitinib 11 mg tablet,extended 11 mg PO QAM 04/19/22 11/22/23 History release 24 hr (Xeljanz XR) melatonin 5 mg capsule 5 mg PO HS PRN Sleep 07/02/22 11/22/23 History furosemide 20 mg tablet 20 mg PO UD 02/20/23 11/22/23 History ascorbic acid (vitamin C) 500 mg 500 mg PO QAM 03/20/23 11/22/23 History capsule tramadol 50 mg tablet 50 mg PO BID PRN pain #40 tabs 05/16/23 11/22/23 Rx metoprolol succinate 25 mg 25 mg PO BID 07/10/23 11/22/23 History tablet,extended release 24 hr buprenorphine 15 mcg/hour weekly 1 patch transdermal Q7D #4 ea 11/01/23 11/22/23 Rx transdermal patch (Butrans) calcium carbonate 500 mg-vitamin 1 tab PO DAILY 11/22/23 11/22/23 History D3 3.125 mcg (125 unit) tablet povidone (PF) 0.5 % eye drops 2 drp ophthalmic (eye) BID 11/22/23 11/22/23 History (iVizia (PF)) Past Med/Surg History Problem List (Updated 11/22/23 @ 16:59 by Riya Olson PA-C) Encephalopathy Back pain Paroxysmal supraventricular tachycardia Hx of rheumatoid arthritis Hypertension Chronic diastolic (congestive) heart failure CAD (coronary artery disease) f/u zachary bergeron Acute kidney injury superimposed on CKD Ambulatory dysfunction Elevated troponin I level (Acute) BERNADINE (acute kidney injury) (Acute) Bilateral leg weakness (Acute) Hematoma of right lower leg (Acute) Greater trochanteric pain syndrome Opioid dependence Greater trochanteric bursitis of left hip Rotator cuff arthropathy of left shoulder Mechanical low back pain Medication monitoring encounter Acquired foot deformity Laceration of right knee (Acute) Pressure ulcer of toe of left foot, stage 4 T12 compression fracture Fever (Acute) Weakness (Acute) Lower extremity edema (Chronic) Acquired hammer toe (Chronic) Neuropathy (Chronic) Stage IV pressure ulcer (Acute) Pes anserine bursitis Status post right knee replacement Traumatic open wound of right lower leg (Acute) Immunosuppression due to chronic steroid use Traumatic open wound of right lower leg with delayed healing (Acute) Laceration of elbow, left (Acute) Dehydration (Acute) Pneumonia due to 2019 novel coronavirus (Acute) Acute respiratory failure with hypoxemia (Acute) Acute respiratory failure with hypoxia Multifocal pneumonia Rheumatoid arthritis (Acute) SARS-CoV-2 positive (Acute) Weakness (Acute) Fall Bilateral knee pain History of total right knee replacement Postural imbalance Entrapment neuropathy of peripheral nerve of lower extremity Venous insufficiency of both lower extremities (Chronic) Traumatic open wound of right lower leg (Acute) Pes anserinus tendonitis of right lower extremity Left knee DJD Traumatic wound (Acute) Left knee pain (Chronic) Postoperative seroma (Chronic) L2-4 Lumbar postlaminectomy syndrome (Chronic) Acquired right foot drop Arachnoiditis (Chronic) Lumbar compression fracture (Chronic) L1 acute on chronic MRI 03/[address] 10/17/2020 Pes anserine bursitis Right knee pain Degenerative joint disease of knee Myofascial pain (Chronic) Sacroiliitis (Chronic) Cervical radiculopathy (Chronic) Greater trochanteric bursitis (Chronic) Lumbago (Chronic) Lumbar radiculitis (Chronic) Peripheral neuropathy (Chronic) Facet syndrome, lumbar (Chronic) CAD (coronary artery disease) (Chronic) Osteoarthritis (Chronic) Myocardial infarct, 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) Hypertension (Chronic) Dyslipidemia (Chronic) Osteoporosis (Chronic) Rheumatoid arthritis of shoulder (Chronic) Lumbar spinal stenosis (Chronic) Medical History Hx of supraventricular tachycardia per cardio record 2019 AAA (abdominal aortic aneurysm) per cardio record 2020 GERD (gastroesophageal reflux disease) Hx of migraines Hx of myocardial infarction 2009>per cardio record from 2019 Lumbar spinal stenosis Postlaminectomy syndrome, lumbar region no current issues Dyslipidemia History of COVID-19 2020, admitted to [facility] w/acute resp. failure>no residual effects Neuropathy in both legs, rt>lt Right knee pain Status post TKA taking shots due to bursitis (no shots for at least 3 months) Surgical History Hx of colonoscopy Hx of heart artery stent ~2008, [facility], x1 stent, 2/2 [place] ~2011, [facility], x1 stent, 2/2 heart symptoms; f/u zachary bergeron Hx of cardiac cath ~2008, [facility], x1 stent, 2/2 [place] ~2011, [facility], x1 stent, 2/2 heart symptoms; f/u zachary bergeron History of total shoulder replacement Right History of loop recorder "removed/shut off"; follows with Dr Bergeron S/P total knee arthroplasty Right History of lumbosacral spine surgery 50+ years for first one, 2nd one 2014, both lower back; flexible rainer and does lesi History of PTCA "years ago" History of hysterectomy History of breast biopsy History of tonsillectomy History of adenoidectomy History of angioplasty Family History Father Myocardial infarction Brother Myocardial infarction Other Family history non-contributory Denies family history of Ovarian cancer Prostate cancer Breast cancer Colorectal cancer Social History (Updated 11/22/23 @ 14:04 by Riya Olson PA-C) Smoking Status: Former smoker Tobacco Type: Cigarettes Second Hand Exposure: Yes (hx); Do You Dip or Chew Tobacco: No; Hx Alcohol Use: Yes (2 glasses wine a day) Alcohol type: wine Alcohol type Comment: In the evenings. Alcohol Intake Frequency: 4 or More x per/Week Preferred Language: Romanian Communication Ability: Effective Visual Impairment: Limited Hearing Ability: Normal Group Practice Pediatrician Required: No Beliefs That Will Affect Care: None marital status: Current Living Situation: Spouse current occupational status: retired How many Children do You have: 7 Feels Safe at Home: Yes Safety Concerns: Feels Safe At This Time Diet: regular during the past year weight has: remained stable Assistive Devices: Lift Chair and Walker Review of Systems Review of Systems: All systems reviewed & are unremarkable except as noted in HPI & below Physical Exam Physical Exam: General: no acute distress, WDWN Head: normocephalic, atraumatic Eyes: PERRL, EOM's intact, conjunctiva non-injected, anicteric ENT: normal inspection external ears, nose, mucous membranes dry Neck: supple, trachea midline Lungs: clear, no respiratory distress, no wheezing/rhonchi/rales CV: RRR, no pretibial edema Abd: normal BS, soft, +tenderness to palpation LLQ without rebound or guarding Ext: BLE: bilateral lower legs with dusky redness with scabs, no drainage. +diffuse tenderness to palpation (reports this is chronic pain) Neuro: Drowsy but awake with conversation and fully conversive and oriented x 3, Visual medina intact. PERRL, EOMs intact. No nystagmus, face is strong and symmetric, hearing grossly intact, soft palate elevates symmetrically, no dysarthria, shoulder shrug intact, tongue is midline, normal movement, no fasciculations +generalized weakness with needing lizbeth tance to sit up in bed, able to actively raise both arms but only holds for couple of seconds and is equal. +Not able to actively lift legs from bed. +chronic foot drop (per ) Skin: warm, dry, as above in ext Results & Data Results & Data Vital Signs (Past 12 Hours) Vital Signs Temp Pulse Resp BP Pulse Ox O2 Del Method 11/22/23 11:06 81 18 92 Room Air 11/22/23 11:00 83 20 105/65 93 11/22/23 10:30 86 21 106/71 91 11/22/23 09:50 37.3 C 94 H 16 164/140 H 92 Room Air Laboratory Results Short CBC 11/22/23 Range/Units 10:32 WBC 8.80 (4.8-10.8) K/ul Hgb 14.0 (12.0-16.0) g/dl Hct 43.9 (37.0-47.0) % Plt Count 266 (130-400) K/uL BMP 11/22/23 10:32 Sodium 139 Potassium 4.2 Chloride 102 Carbon Dioxide 25 BUN 25 H Creatinine 1.40 H Glucose 139 H Calcium 9.6 Cardiac Enzymes 11/22/23 Range/Units 10:32 Total Creatine Kinase 97 (26-192) U/L Liver Function 11/22/23 Range/Units 10:32 Total Bilirubin 1.0 (0.2-1.0) mg/dl AST 21 (13-39) U/L ALT 10 (7-52) U/L Alkaline Phosphatase 42 (34-104) U/L Albumin 4.4 (3.4-5.0) gm/dl Diagnostic Findings Cervical Spine CT 11/22/23 10:13 CT cervical spine wo con CT DOSE: 2005.94 mGy.cm CLINICAL HISTORY: 88 years-old Female with LE weakness. Chronic neck pain COMPARISON: Head CT of same day, MRI cervical spine 09/04/2018 TECHNIQUE: Multiple axial CT images of the cervical spine were obtained without contrast. A dose lowering technique was utilized adhering to the principles of ALARA. FINDINGS: 4 mm anterolisthesis C3 on C4 previously measured 3 mm, likely secondary to the severe facet arthrosis. There is severe multilevel facet arthrosis with degenerative partial bony fusion of the C3-C4 facets. Multilevel intervertebral disc space narrowing, severe at C5-C6 with circumferential disc osteophyte complex. Demineralized appearance of the bones. C1-C2 articulation is intact. No acute cervical spine fracture or subluxation identified. There is prominent calcified plaque noted within the bilateral carotid bulbs and proximal ICAs. Multilevel bilateral neural foraminal narrowing is suboptimally evaluated by CT technique. The cervical soft tissues appear unremarkable. The visualized lung apices appear clear. IMPRESSION: No acute cervical spine fracture or subluxation. ACT 112: Negative or not required by law. The above report was generated using voice recognition software. It may contain grammatical, syntax or spelling errors. Electronically signed by: Gideon Turner M.D. 11/22/2023 11:15 AM Chest X-Ray 11/22/23 10:13 XR chest 1V portable CLINICAL HISTORY: weakness TECHNIQUE: Single frontal radiograph of the chest was obtained. Comparison: Comparison is made to chest radiograph 06/22/2021 FINDINGS: Right shoulder arthroplasty is again seen along with battery-powered device chest. Cardiomegaly is noted. The aortic arch is calcified. The lungs are clear. There is blunting of the costophrenic angle on the left. IMPRESSION: 1. Cardiomegaly without acute chest disease. 2. Blunting of the left costophrenic angle may represent trace effusion versus scarring. ACT 112: Negative or not required by law. Electronically signed by: Abdias Ortiz M.D. 11/22/2023 11:[address] 11/22/23 10:13 CT head/brain wo con CLINICAL HISTORY: weakness Technique: Contiguous axial CT images of the head were acquired from the base of the skull to the vertex without intravenous contrast administration. Images were viewed in brain, subdural and bone windows. Automated dose lowering techniques and/or adjustment according to patient size were utilized for this exam. Comparison: Comparison is made to CT head 1121 Findings: Areas of decreased attenuation are present in the periventricular and subcortical white matter bilaterally consistent with small vessel ischemic disease. Generalized cerebral atrophy with commensurate enlargement of the ventricles, sulci, and cisterns is also present. There is no acute intracranial hemorrhage or evidence of acute territorial infarction. No shift of the midline structures, mass effect, or extra-axial abnormalities are shown. Atherosclerotic calcifications are present in the intracranial segments of the internal carotid arteries. Imaged portions of the paranasal sinuses and mastoid air cells are clear. The orbits appear normal. There are no acute fractures of the calvaria or scalp swelling. Impression: No acute intracranial hemorrhage, no evidence of acute territorial infarction or other acute intracranial disease process. ACT 112: Negative or not required by law. Electronically signed by: Abdias Ortiz M.D. 11/22/2023 10:[address] 11/22/23 10:13 CT OF THE LUMBAR SPINE CLINICAL HISTORY: Lower extremity weakness. COMPARISON STUDY: Lumbar spine CT June 23, 2021. Thoracolumbar spine radiographs May 16, 2023. Lumbar spine MRI April 10, 2019. CT of the abdomen and pelvis May 08, 2022. TECHNIQUE: Helical axial images of the lumbar spine were obtained. Sagittal and coronal reconstructions were viewed. Automated exposure control was utilized for the study. A dose lowering technique was utilized adhering to the principles of ALARA. FINDINGS: For purposes of numbering on this exam, the L5-S1 disc space is assigned to axial image [id number]. There is mild lumbar spine dextroscoliosis. There is stable postoperative findings consistent with L2-L4 decompression and fusion. The hardware is intact. Multiple old thoracolumbar spine fractures are unchanged in appearance since CT of May 08, 2022 and include fractures of T12, L1, L2, L3 and L4 vertebra. There are no acute lumbar spine fractures. There are no osseous lesions. There is moderate to severe multilevel degenerative disc disease and facet arthrosis. Central canal and neural foramen are suboptimally assessed given CT technique. A 4.5 cm infrarenal abdominal aortic aneurysm has mildly increased in size since CT of April 30, 2022 when it measured 4.2 cm. IMPRESSION: 1. No acute lumbar spine fracture or subluxation. 2. No change in appearance of old thoracolumbar spine fractures since CT of May 08, 2022. 3. Stable postoperative findings following L2-L4 decompression and fusion. 4. Moderate to severe multilevel degenerative disc disease and facet arthrosis within the lumbar spine. Suboptimal evaluation of the central canal given CT technique. 5. Mild increase in caliber of 4.5 cm infrarenal abdominal aortic aneurysm. ACT 112: Negative or not required by law. Electronically signed by: Freddy Rivera M.D. 11/22/2023 11:07 AM Abdomen/Pelvis CT 11/22/23 13:30 CT abd pelvis wo con CLINICAL HISTORY: LLQ pain TECHNIQUE: Helical axial images of the abdomen and pelvis were obtained. Automated dose lowering techniques and/or adjustment according to patient size were utilized for this exam. This exam was performed without intravenous contrast. CT DOSE: 869.07 mGy.cm COMPARISON: Comparison is made to CT abdomen pelvis 05/08/2022 FINDINGS: Lower chest: Bibasilar atelectasis versus scarring is seen. Liver: Unremarkable. No focal lesions are seen. Gallbladder and biliary tree: No calcified gallstones. Normal caliber wall. No intra- or extrahepatic biliary ductal dilation. Pancreas: Fatty replacement of the pancreas is seen. There is a 21 mm pancreatic cyst. Spleen: Unremarkable. Adrenals: Unremarkable. Kidneys and ureters: Perinephric stranding is noted bilaterally. Bladder: Unremarkable. Reproductive organs: Patient is status post hysterectomy. Bowel: The appendix is normal. There is a small hiatal hernia. Lymph nodes Retroperitoneal: Unremarkable. Pelvic: Unremarkable. Mesenteric: Unremarkable. Peritoneum: Normal. Vessels: Right infrarenal aortic aneurysm measures 44 mm. Abdominal wall: Unremarkable. Bones: Degenerative changes in the visualized spine. Posterior fixation hardware spans L2-L4. Multilevel compression deformities are seen. IMPRESSION: 1. No acute abnormalities and in particular no evidence of diverticulitis in this patient with left lower quadrant pain. 2. Unchanged chronic compression deformities. 3. Infrarenal aortic aneurysm is unchanged. ACT 112: Negative or not required by law. Electronically signed by: Abdias Ortiz M.D. 11/22/2023 1:52 PM ECG Additional Comments: sinus rhythm non-specific t wave changes inferior leads per my interpretation
[2023-11-22 13:18] LABS: Troponin I High Sensitivity 119.7 pg/ml (0-14)
--- NOTE | 2023-11-22 13:53 | CT Scan Report ---
CT abd pelvis wo con CLINICAL HISTORY: LLQ pain TECHNIQUE: Helical axial images of the abdomen and pelvis were obtained. Automated dose lowering tech niques and/or adjustment according to patient size were utilized for this exam. This exam was perfor med without intravenous contrast. CT DOSE: 869.07 mGy.cm COMPARISON: Comparison is made to CT abdomen pelvis 05/08/2022 FINDINGS: Lower chest: Bibasilar atelectasis versus scarring is seen. Liver: Unremarkable. No focal lesions are seen. Gallbladder and biliary tree: No calcified gallstones. Normal caliber wall. No intra- or extrahepatic biliary ductal dilation. Pancreas: Fatty replacement of the pancreas is seen. There is a 21 mm pancreatic cyst. Spleen: Unremarkable. Adrenals: Unremarkable. Kidneys and ureters: Perinephric stranding is noted bilaterally. Bladder: Unremarkable. Reproductive organs: Patient is status post hysterectomy. Bowel: The appendix is normal. There is a small hiatal hernia. Lymph nodes Retroperitoneal: Unremarkable. Pelvic: Unremarkable. Mesenteric: Unremarkable. Peritoneum: Normal. Vessels: Right infrarenal aortic aneurysm measures 44 mm. Abdominal wall: Unremarkable. Bones: Degenerative changes in the visualized spine. Posterior fixation hardware spans L2-L4. Multile zeke compression deformities are seen. IMPRESSION: 1. No acute abnormalities and in particular no evidence of diverticulitis in this patient with left lower quadrant pain. 2. Unchanged chronic compression deformities. 3. Infrarenal aortic aneurysm is unchanged. ACT 112: Negative or not required by law. Electronically signed by: Abdias Ortiz M.D. 11/22/2023 1:52 PM
--- NOTE | 2023-11-22 14:01 | Electrocardiogram Report ---
Test Reason : Blood Pressure : */* mmHG Vent. Rate : 89 BPM Atrial Rate : 89 BPM P-R Int : 170 ms QRS Dur : 80 ms QT Int : 362 ms P-R-T Axes : 53 11 -8 degrees QTcB Int : 440 ms Normal sinus rhythm Nonspecific T wave abnormality Abnormal ECG When compared with ECG of 17-Jun-2023 12:25, Vent. rate has increased by 33 bpm Nonspecific T wave abnormality now evident in Lateral leads Confirmed by Michael Sanderson ([id number]) on 11/22/2023 2:01:21 PM Referred By: Confirmed By: Michael Sanderson
[2023-11-22] MEDS: SODIUM CHLORIDE 0.9% 1,000 ML IV SCH (14:04)
[2023-11-22] MEDS ORDERED: ONDANSETRON INJ 2 MG/ML 2 ML VIAL IV PRN (14:07)
[2023-11-22 18:23] LABS: Appearance Urine Cloudy (Clear); Bacteria Urine Automated None Seen (None Seen); Bilirubin Urine Negative (Negative); Blood Urine 2+ (Negative); Color Urine Yellow; Epithelial Cell Urine Auto 0-2 /hpf (0-2); Glucose Urine UA Negative (Negative); Ketones Urine Negative (Negative); Leukocyte Esterase Urine Negative (Negative); Nitrite Urine Negative (Negative); Protein Urine 2+ (Negative); Specific Gravity Urine 1.016 (1.000-1.030); Urobilinogen Urine Negative (Negative); WBC Urine Automated 0-5 /hpf (0-5)
[2023-11-22 19:09] LABS: Partial Thromboplastin Time 26 Seconds (21-31); Prothrombin Time 11.2 Seconds (9.0-12.0)
[2023-11-22] MEDS: METOPROLOL SUCC 25MG EXT REL TAB PO SCH (20:07)
[2023-11-22] MEDS: HEPARIN SOD 5,000 UNIT/0.5 ML VIAL SQ SCH (20:07)
[2023-11-22] MEDS: GABAPENTIN 300 MG CAP PO SCH (20:07)
[2023-11-22] MEDS: FAMOTIDINE 20 MG TAB PO SCH (20:07)
[2023-11-23 06:53] LABS: Hematocrit (blood only) 34.9 % (37.0-47.0); Hemoglobin 11.3 g/dl (12.0-16.0); Mean Corpuscular Hemoglobin 32.4 pg (25.0-34.0); Mean Corpuscular Hgb Conc 32.4 g/dL (32.0-36.0); Mean Platelet Volume 9.6 fL (9.4-12.4); Platelet Count 219 K/uL (130-400); RDW Coefficient of Variation 15.1 % (11.5-14.5); RDW Standard Deviation 55.7 fL (36.4-46.3); Red Blood Count 3.49 M/uL (4.20-5.40); White Blood Count 12.43 K/ul (4.8-10.8)
[2023-11-23 07:02] LABS: BUN Creatinine Ratio 26.4 (10-20); Calcium 8.2 mg/dl (8.6-10.3); Creatinine Clr Calc Pharmacy 34.5 ml/min; Est GFR (African American) 52.3 ml/min; Est GFR (Non-African American) 45.1 ml/min; Potassium 3.8 mmol/L (3.5-5.1)
[2023-11-23] MEDS: ACETAMINOPHEN 325 MG TAB PO PRN (07:44)
[2023-11-23] MEDS: CALCIUM 600MG + VIT D 400 IU TAB PO SCH (07:45)
[2023-11-23] MEDS: ASCORBIC ACID 500 MG TAB PO SCH (07:45)
[2023-11-23] MEDS: ISOSORBIDE MONO EXTENDED REL 30 MG TABCR PO SCH (07:46)
[2023-11-23] MEDS: ROSUVASTATIN CALCIUM 20 MG TAB PO SCH (07:46)
[2023-11-23] MEDS ORDERED: traMADol HCL 50 MG TABLET PO PRN (09:00)
--- NOTE | 2023-11-23 10:33 | Hospitalist Progress Note ---
Date of Service November 23, 2023 Assessment & Plan (1) Ambulatory dysfunction: (2) Bilateral leg weakness: (3) Back pain: Plan: 88-year-old female with PMH CAD s/p stent, HTN, dyslipidemia, paroxysmal SVT, RA, CKD III, GERD, chronic back and extremity pain, and others listed below presented to ER with complaint of leg weakness and ambulatory dysfunction started night before presentation. Chronic back pain and chronic BLE pain. Uses walker and lift chair at baseline. Now with increased BLE weakness and unable to ambulate In ER afebrile, vitals stable. On presentation, no significant electrolyte abnormality. Negative influenza, RSV, COVID PCR. CT Head: no acute abnormality CT Lumbar spine: No acute lumbar spine fracture or subluxation. No change in appearance of old thoracolumbar spine fractures since CT of May 08, 2022. Stable postoperative findings following L2-L4 decompression and fusion. Moderate to severe multilevel degenerative disc disease and facet arthrosis within the lumbar spine. Suboptimal evaluation of the central canal given CT technique.. Mild increase in caliber of 4.5 cm infrarenal abdominal aortic aneurysm. WBC increased to 12 Also with signs of Left leg cellulitis, Will cover patient with IV ceftriaxone Get LE dopplers to rule out DVT MRI Thoracic and lumbar spine reordered now that patient has information about her stimulator for MRI. RN to notify MRI about information. (4) Acute kidney injury superimposed on CKD: Plan: BERNADINE on CKD III Cr: 1.4. Baseline Cr: 1.0 Got IVF Cr is 1.1 today Stop IVF Will continue to hold home lasix for today Monitor renal function (5) Encephalopathy: Plan: Was reported to be more drowsy on day of admission CT Head: no acute intracranial abnormality Resolved Patient is awake, alert oriented to person,place and time Have great insight (6) Elevated troponin I level: (7) Chronic diastolic (congestive) heart failure: (8) CAD (coronary artery disease): Plan: History CAD s/p stent Troponin: 108 -->119-->106. EKG without acute ST elevation CK: 82 Denies CP, SOB Echo showed LV cavity is small, mod conc LVH, normal wall motion, EF 65-70%, Grade I DD, no significant valvular disease Continue aspirin, metoprolol succinate, isosorbide, rosuvastatin (9) Hx of rheumatoid arthritis: Plan: Continue Xeljanz (10) Paroxysmal supraventricular tachycardia: Plan: Continue metoprolol succinate DVT Prophylaxis Heparin SQ Admit med tele DNR/DNI Follows with Dr Mcnair for routine care I spent a total of 50 minutes coordinating, documenting and providing care for this patient excluding time spent in performance of separately billed services Admission and Anticipated Discharge Date Admission Date: November 22, 2023 Subjective Patient seen and examined Reports generalized weakness especially in both legs Reports lower extremity weakness is quite significant compared to her baseline Currently denies any back pain Reports pain especially in left leg. Has chronic right foot drop. Denied fever, nausea, vomiting Denied cough, chest pain, SOB Denied dysuria, freq, urgency Physical Exam Constitutional: + well hydrated; no acute distress Elderly woman Eyes: PERRL, conjunctivae normal, anicteric sclerae ENMT: external ear and nose normal, oropharynx normal Respiratory: normal respiratory effort, lungs clear to auscultation Cardiovascular: Rate/Rhythm: regular rate and regular rhythm Gastrointestinal (Abdomen): normal bowel sounds, soft, nontender, no hepatosplenomegaly Musculoskeletal: Some chronic hyperpigmented changes on legs. Some ecchymoses on legs. Edema/tenderness of left leg. Some tenderness in right leg. Some ecchymoses on leg (patient reports this is chronic) Rt foot drop Power is 3+/5 in both legs Neurologic: PERRL, EOMI, accommodation nl, no face palsy, no dysarthria Psychiatric: A+Ox3, euthymic affect Results & Data Results & Data Vital Signs (Past 12 Hours) Vital Signs Temp Pulse Pulse Pulse Pulse Resp BP 11/23/23 08:22 36.9 C 80 70 21 11/23/23 07:50 37.6 C H 81 20 137/69 11/23/23 05:42 71 11/23/23 03:44 36.4 C L 81 18 111/69 11/22/23 23:49 36.5 C 92 H 16 11/22/23 23:32 82 BP Pulse Ox O2 Del Method 11/23/23 08:22 118/74 93 Room Air 11/23/23 07:50 95 Room Air 11/23/23 05:42 11/23/23 03:44 93 Room Air 11/22/23 23:49 100/64 93 Room Air 11/22/23 23:32 Laboratory Results Abnormal lab results 11/22/23 11/22/23 11/22/23 Range/Units 10:32 12:39 18:00 WBC (4.8-10.8) K/ul RBC (4.20-5.40) M/uL Hgb (12.0-16.0) g/dl Hct (37.0-47.0) % MCV 100.5 H (80.0-100.0) fL MCHC 31.9 L (32.0-36.0) g/dL RDW Std Deviation 55.8 H (36.4-46.3) fL RDW Coeff of Bryan 15.0 H (11.5-14.5) % MPV 9.3 L (9.4-12.4) fL Neut # (Auto) 7.28 H (1.40-6.50) K/uL Lymph # (Auto) 0.77 L (1.20-3.40) K/uL [place] # (Auto) 0.62 H (0.11-0.59) K/uL VBG pH 7.33 L (7.36-7.41) Chloride (98-107) mmol/L Anion Gap 12 H (3-11) BUN 25 H (6-23) mg/dl Creatinine 1.40 H (0.6-1.2) mg/dl BUN/Creatinine Ratio (10-20) Glucose 139 H (70-99(Fasting)) mg/dl Calcium (8.6-10.3) mg/dl Ammonia 12.0 L (18-72) umol/L Troponin I High Sens 107.9 H* 119.7 H* (0-14) pg/ml B-Natriuretic Peptide 242 H (0-100) pg/ml Urine Appearance Cloudy A (Clear) Urine Protein 2+ H (Negative) Urine Blood 2+ H (Negative) Urine RBC (Auto) 11-20 H (0-2) /hpf U Hyaline Cast (Auto) 11-20 H (0-2) /lpf 11/22/23 11/23/23 Range/Units 18:27 06:05 WBC 12.43 H (4.8-10.8) K/ul RBC 3.49 L (4.20-5.40) M/uL Hgb 11.3 L (12.0-16.0) g/dl Hct 34.9 L (37.0-47.0) % MCV (80.0-100.0) fL MCHC (32.0-36.0) g/dL RDW Std Deviation 55.7 H (36.4-46.3) fL RDW Coeff of Bryan 15.1 H (11.5-14.5) % MPV (9.4-12.4) fL Neut # (Auto) (1.40-6.50) K/uL Lymph # (Auto) (1.20-3.40) K/uL [place] # (Auto) (0.11-0.59) K/uL VBG pH (7.36-7.41) Chloride 109 H (98-107) mmol/L Anion Gap (3-11) BUN 29 H (6-23) mg/dl Creatinine (0.6-1.2) mg/dl BUN/Creatinine Ratio 26.4 H (10-20) Glucose (70-99(Fasting)) mg/dl Calcium 8.2 L (8.6-10.3) mg/dl Ammonia (18-72) umol/L Troponin I High Sens 106.4 H* (0-14) pg/ml B-Natriuretic Peptide (0-100) pg/ml Urine Appearance (Clear) Urine Protein (Negative) Urine Blood (Negative) Urine RBC (Auto) (0-2) /hpf U Hyaline Cast (Auto) (0-2) /lpf
[2023-11-23] MEDS: cefTRIAXone SODIUM 1,000 MG/50 ML BAG IV SCH (11:25)
[2023-11-23] MEDS: GADOBUTROL 65ML VIAL IV ONE (12:58)
--- NOTE | 2023-11-23 13:53 | Magnetic Resonance Report ---
MR thoracic spine wo/w con CLINICAL HISTORY: Lower Extremity weakness TECHNIQUE: Multiplanar sequences through the thoracic spine were obtained, without and with intraveno us contrast. Comparison: None available at the time of this dictation. FINDINGS: The alignment is anatomical. Degenerative changes are noted in the discs and vertebral bodies. The spinal canal and neural foramina are patent. The spinal ligaments are intact, without evidence of disruption or abnormal signal intensity. The spi nal cord is normal in signal intensity and there is no evidence of cord contusion. There is no eviden ce of an extradural, intradural, extramedullary or intramedullary lesion. Visualized soft tissues are normal. IMPRESSION: Degenerative disc disease is seen without significant canal or neural foraminal stenosis. No mass les ion. ACT 112: Negative or not required by law. Electronically signed by: Abdias Ortiz M.D. 11/23/2023 1:51 PM
--- NOTE | 2023-11-23 14:03 | Magnetic Resonance Report ---
MR lumbar spine wo/w con CLINICAL HISTORY: Lower extremity weakness TECHNIQUE: 3 plane localizer images, sagittal T2, sagittal T1, sagittal STIR, axial T1, axial T2 darron g with postcontrast axial T1 and sagittal T1 fat-saturated sequences were obtained of the lumbar spin e, before and after intravenous administration of 12 mL of MultiHance. Comparison: Comparison is made to MRI lumbar spine 04/10/2019 CT lumbar spine 11/22/2023 FINDINGS: L2-L4 decompression and fusion is seen. Multilevel compression deformities are seen most prominent at T12 and L1. T12-L1: Broad-based disc bulge with a moderate canal stenosis, AP diameter and 7 mm and moderate righ t and severe left neural foraminal stenosis L1-L2: No significant abnormality. L2-L3: No significant abnormality. L3-L4: No significant abnormality. L4-L5: Focal right-sided disc bulge is seen severe canal stenosis, AP diameter 4 mm, severe right and left neural foraminal stenosis L5-S1: Broad-based posterior disc bulge is seen with neuroforaminal stenosis. The spinal ligaments are intact, without evidence of disruption or abnormal signal intensity. The spi nal cord is normal in signal intensity and there is no evidence of cord contusion. There is no eviden ce of an extradural, intradural, extramedullary or intramedullary lesion. Visualized soft tissues are normal. IMPRESSION: Multilevel degenerative changes are seen with up to severe canal stenosis, AP diameter 4 mm, and mariia re bilateral neuroforaminal stenosis. Chronic appearing compression deformities and postsurgical nunez ges as above. ACT 112: Negative or not required by law. Electronically signed by: Abdias Ortiz M.D. 11/23/2023 2:01 PM
[2023-11-23] MEDS ORDERED: DEXAMETHASONE SOD INJ 4 MG/ML VIAL IV SCH (16:15)
[2023-11-23] MEDS: dexAMETHasone 4 MG in SYRINGE 0 ML IV SCH (17:37)
--- NOTE | 2023-11-23 19:20 | Ultrasound Report ---
US venous doppler LE BI CLINICAL HISTORY: LE swelling. R/o DVT TECHNIQUE: Bilateral lower extremity real-time compression venous ultrasound with Color Doppler imagi ng. Utilizing real-time ultrasonic imaging multiple real time high-resolution ultrasonic images with compression and noncompression maneuvers of the deep venous system in addition to color doppler imagi ng were performed from the common femoral vein through the proximal calf veins. COMPARISON: None available at the time of this dictation. FINDINGS/IMPRESSION: Right mid to distal femoral vein is also compressible which may represent an old nonocclusive thrombu s. No acute deep venous thrombus is seen. No superficial venous thrombosis is identified. ACT 112: Negative or not required by law. Electronically signed by: Abdias Ortiz M.D. 11/23/2023 7:19 PM
[2023-11-24 06:48] LABS: Hematocrit (blood only) 34.7 % (37.0-47.0); Hemoglobin 11.4 g/dl (12.0-16.0); Mean Corpuscular Hemoglobin 32.2 pg (25.0-34.0); Mean Corpuscular Hgb Conc 32.9 g/dL (32.0-36.0); Mean Platelet Volume 9.8 fL (9.4-12.4); Platelet Count 233 K/uL (130-400); RDW Coefficient of Variation 14.4 % (11.5-14.5); RDW Standard Deviation 52.2 fL (36.4-46.3); Red Blood Count 3.54 M/uL (4.20-5.40); White Blood Count 11.78 K/ul (4.8-10.8)
[2023-11-24 07:23] LABS: BUN Creatinine Ratio 27.6 (10-20); Calcium 9.2 mg/dl (8.6-10.3); Creatinine Clr Calc Pharmacy 38.8 ml/min; Est GFR (African American) 60.1 ml/min; Est GFR (Non-African American) 51.9 ml/min; Magnesium 2.3 mg/dl (1.7-2.4); Phosphorus 2.3 mg/dl (2.5-4.9); Potassium 4.1 mmol/L (3.5-5.1)
[2023-11-24] MEDS: TOFACITINIB CITRATE 11 MG PO SCH (07:42)
--- NOTE | 2023-11-24 13:00 | Hospitalist Progress Note ---
Date of Service November 24, 2023 Assessment & Plan (1) Ambulatory dysfunction: (2) Bilateral leg weakness: (3) Back pain: Plan: 88-year-old female with PMH CAD s/p stent, HTN, dyslipidemia, paroxysmal SVT, RA, CKD III, GERD, chronic back and extremity pain, and others listed below presented to ER with complaint of leg weakness and ambulatory dysfunction started night before presentation. Chronic back pain and chronic BLE pain. Uses walker and lift chair at baseline. Now with increased BLE weakness and unable to ambulate In ER afebrile, vitals stable. On presentation, no significant electrolyte abnormality. Negative influenza, RSV, COVID PCR. CT Head: no acute abnormality CT Lumbar spine: No acute lumbar spine fracture or subluxation. No change in appearance of old thoracolumbar spine fractures since CT of May 08, 2022. Stable postoperative findings following L2-L4 decompression and fusion. Moderate to severe multilevel degenerative disc disease and facet arthrosis within the lumbar spine. Suboptimal evaluation of the central canal given CT technique.. Mild increase in caliber of 4.5 cm infrarenal abdominal aortic aneurysm. MRI Thorax and lumbar noted Multilevel degenerative changes. Broad based disc bulge with moderate canal stenosis at T12-L1, moderate right and severe left neural foraminal stenosis Focal right sided disc bulge at L4-5 with severe canal stenosis, AP diameter of 4mm, severe right and left neural foraminal stenosis Broad based posterior disc bulge is seen with neuroforaminal stenosis Compression deformity of T12 is new from prior exam but appears chronic without edema. The canal and neuroforaminal stenosis at L4-5 is significantly increased from prior exam although finding in the upper lumbar spine are at most minimally progressed. A posterior fluid collection measuring [id number] at surgical site is unchanged On 11/22/23, I discussed MRI findings with Radiologist Dr Ortiz I updated patient and granddaughter about findings on 11/22/23. Will await Ortho spine surgeon eval on Saturday since not available this weekend. In the meantime, she agreed to trial of dexamethasone Continue dexa for now and monitor WBC increased to 12 on second day of admission WBC is 11 today Continue ceftriaxone for Left leg cellulitis Doppler of LLE did not show acute DVT (4) Acute kidney injury superimposed on CKD: Plan: BERNADINE on CKD III Cr: 1.4. Baseline Cr: 1.0 Got IVF Cr is 0.98 Resume home lasix 20mg MWF Monitor renal function (5) Encephalopathy: Plan: Was reported to be more drowsy on day of admission CT Head: no acute intracranial abnormality Resolved Patient is awake, alert oriented to person,place and time Has great insight (6) Elevated troponin I level: (7) Chronic diastolic (congestive) heart failure: (8) CAD (coronary artery disease): Plan: History CAD s/p stent Troponin: 108 -->119-->106. EKG without acute ST elevation CK: 82 Denies CP, SOB Echo showed LV cavity is small, mod conc LVH, normal wall motion, EF 65-70%, Grade I DD, no significant valvular disease Continue aspirin, metoprolol succinate, isosorbide, rosuvastatin (9) Hx of rheumatoid arthritis: Plan: Continue Xeljanz (10) Paroxysmal supraventricular tachycardia: Plan: Continue metoprolol succinate DVT Prophylaxis Heparin SQ Admit med tele DNR/DNI Follows with Dr Mcnair for routine care Patient called on her phone and I updated them on findings and plans I spent a total of 50 minutes coordinating, documenting and providing care for this patient excluding time spent in performance of separately billed services Admission and Anticipated Discharge Date Admission Date: November 22, 2023 Subjective Patient seen and examined Still reports significant leg weakness compared to baseline Reports pain in legs especially left is reduced Currently denies any back pain. Reported she woke up in the middle of the night and it took her some mins to realize where she was Denied fever, nausea, vomiting Denied cough, chest pain, SOB Denied dysuria, freq, urgency Physical Exam Constitutional: + well hydrated; no acute distress Eyes: PERRL, conjunctivae normal, anicteric sclerae ENMT: external ear and nose normal, oropharynx normal Respiratory: normal respiratory effort, lungs clear to auscultation Cardiovascular: Rate/Rhythm: regular rate and regular rhythm Gastrointestinal (Abdomen): normal bowel sounds, soft, nontender, no hepatosplenomegaly Musculoskeletal: Some ecchymoses on legs. Edema/tenderness of left leg. Some tenderness in right leg. Some chronic hyperpigmented changes on both legs Rt foot drop Power is mildly improved in legs compared to yesterday. Able to raise them up against gravity. Neurologic: PERRL, EOMI, accommodation nl, no face palsy, no dysarthria Psychiatric: A+Ox3, euthymic affect Results & Data Results & Data Vital Signs (Past 12 Hours) Vital Signs Temp Pulse Resp BP BP Pulse Ox O2 Del Method 11/24/23 10:55 36.4 C L 84 19 141/87 H 96 Room Air 11/24/23 07:08 36.7 C 70 18 153/75 H 94 Room Air 11/24/23 03:31 36.5 C 90 22 135/71 93 Room Air Laboratory Results Abnormal lab results 11/24/23 Range/Units 06:03 WBC 11.78 H (4.8-10.8) K/ul RBC 3.54 L (4.20-5.40) M/uL Hgb 11.4 L (12.0-16.0) g/dl Hct 34.7 L (37.0-47.0) % RDW Std Deviation 52.2 H (36.4-46.3) fL Chloride 111 H (98-107) mmol/L BUN 27 H (6-23) mg/dl BUN/Creatinine Ratio 27.6 H (10-20) Glucose 145 H (70-99(Fasting)) mg/dl Phosphorus 2.3 L (2.5-4.9) mg/dl Procalcitonin 1.62 H (0-0.5) ng/ml
--- NOTE | 2023-11-24 13:22 | Electrocardiogram Report ---
Test Reason : Blood Pressure : */* mmHG Vent. Rate : 75 BPM Atrial Rate : 75 BPM P-R Int : 178 ms QRS Dur : 88 ms QT Int : 370 ms P-R-T Axes : 62 9 -31 degrees QTcB Int : 413 ms Normal sinus rhythm Nonspecific T wave abnormality Abnormal ECG When compared with ECG of 22-Nov-2023 10:18, No significant change was found Confirmed by Nayan Ramirez ([id number]) on 11/24/2023 1:22:04 PM Referred By: REFERRED SELF Confirmed By: Nayan Ramirez
[2023-11-24] MEDS: [UNRECOGNIZED DRUG - OTHER] OP SCH (20:44)
[2023-11-24] MEDS: EYE OP SCH (20:44)
[2023-11-24] MEDS: MELATONIN 3 MG TAB PO PRN (20:49)
[2023-11-25 06:50] LABS: Hematocrit (blood only) 33.5 % (37.0-47.0); Hemoglobin 11.1 g/dl (12.0-16.0); Mean Corpuscular Hemoglobin 32.4 pg (25.0-34.0); Mean Corpuscular Hgb Conc 33.1 g/dL (32.0-36.0); Mean Corpuscular Volume 97.7 fL (80.0-100.0); Mean Platelet Volume 10.3 fL (9.4-12.4); Platelet Count 268 K/uL (130-400); RDW Coefficient of Variation 14.2 % (11.5-14.5); Red Blood Count 3.43 M/uL (4.20-5.40); White Blood Count 11.51 K/ul (4.8-10.8)
[2023-11-25 07:16] LABS: BUN Creatinine Ratio 30.6 (10-20); Calcium 9.2 mg/dl (8.6-10.3); Creatinine Clr Calc Pharmacy 38.8 ml/min; Est GFR (African American) 60.1 ml/min; Est GFR (Non-African American) 51.9 ml/min; Potassium 4.3 mmol/L (3.5-5.1)
[2023-11-25] MEDS ORDERED: BUPRENORPHINE 5 MCG/HR TDSY TD SCH ×4 (09:00)
[2023-11-25] MEDS: FUROSEMIDE 20 MG TAB PO SCH (09:15)
[2023-11-25] MEDS: ASPIRIN 81 MG ECTAB PO SCH (09:16)
[2023-11-25] MEDS: BUPRENORPHINE 5 MCG/HR TDSY TD SCH ×2 (11:04→11:36)
[2023-11-25] MEDS: POLYETHYLENE (MIRALAX) 17 GM PACK PO PRN (11:06)
--- NOTE | 2023-11-25 12:22 | Hospitalist Progress Note ---
Date of Service November 25, 2023 Assessment & Plan (1) Ambulatory dysfunction: (2) Bilateral leg weakness: (3) Back pain: Plan: 88-year-old female with PMH CAD s/p stent, HTN, dyslipidemia, paroxysmal SVT, RA, CKD III, GERD, chronic back and extremity pain, and others listed below presented to ER with complaint of leg weakness and ambulatory dysfunction started night before presentation. Chronic back pain and chronic BLE pain. Uses walker and lift chair at baseline. Presented with increased BLE weakness and unable to ambulate In ER afebrile, vitals stable. On presentation, no significant electrolyte abnormality. Negative influenza, RSV, COVID PCR. CT Head: no acute abnormality CT Lumbar spine: No acute lumbar spine fracture or subluxation. No change in appearance of old thoracolumbar spine fractures since CT of May 08, 2022. Stable postoperative findings following L2-L4 decompression and fusion. Moderate to severe multilevel degenerative disc disease and facet arthrosis within the lumbar spine. Suboptimal evaluation of the central canal given CT technique.. Mild increase in caliber of 4.5 cm infrarenal abdominal aortic aneurysm. MRI Thorax and lumbar noted Multilevel degenerative changes. Broad based disc bulge with moderate canal stenosis at T12-L1, moderate right and severe left neural foraminal stenosis Focal right sided disc bulge at L4-5 with severe canal stenosis, AP diameter of 4mm, severe right and left neural foraminal stenosis Broad based posterior disc bulge is seen with neuroforaminal stenosis Compression deformity of T12 is new from prior exam but appears chronic without edema. The canal and neuroforaminal stenosis at L4-5 is significantly increased from prior exam although finding in the upper lumbar spine are at most minimally progressed. A posterior fluid collection measuring [id number] at surgical site is unchanged On 11/22/23, I discussed MRI findings with Radiologist Dr Ortiz I updated patient and granddaughter about findings on 11/22/23. Currently on trial of dexamethasone Power is improved compared to admission but not back to baseline Awaiting ortho spine surgeon eval WBC is 11 today Continue ceftriaxone for Left leg cellulitis Doppler of LLE did not show acute DVT (4) Acute kidney injury superimposed on CKD: Plan: BERNADINE on CKD III Cr: 1.4. Baseline Cr: 1.0 Got IVF Cr is 0.98 Home lasix 20mg MWF has been resumed Monitor renal function (5) Encephalopathy: Plan: Was reported to be more drowsy on day of admission CT Head: no acute intracranial abnormality Resolved Patient is awake, alert oriented to person,place and time Has great insight (6) Elevated troponin I level: (7) Chronic diastolic (congestive) heart failure: (8) CAD (coronary artery disease): Plan: History CAD s/p stent Troponin: 108 -->119-->106. EKG without acute ST elevation CK: 82 Denies CP, SOB Echo showed LV cavity is small, mod conc LVH, normal wall motion, EF 65-70%, Grade I DD, no significant valvular disease Continue aspirin, metoprolol succinate, isosorbide, rosuvastatin (9) Hx of rheumatoid arthritis: Plan: Continue Xeljanz (10) Paroxysmal supraventricular tachycardia: Plan: Continue metoprolol succinate DVT Prophylaxis Heparin SQ Admit med tele DNR/DNI Follows with Dr Mcnair for routine care Updated son at bedside I spent a total of 40 minutes coordinating, documenting and providing care for this patient excluding time spent in performance of separately billed services Admission and Anticipated Discharge Date Admission Date: November 22, 2023 Subjective Patient seen and examined Reports improvement in power in legs Stated she required 2 person assist yesterday but 1 person assist today Reports pain in left leg is almost resolved except when touched. Denied fever, nausea, vomiting Reports constipation. Passing flatus Denied cough, chest pain, SOB Denied dysuria, freq, urgency Physical Exam Constitutional: + well hydrated; no acute distress Eyes: PERRL, conjunctivae normal, anicteric sclerae ENMT: external ear and nose normal, oropharynx normal Respiratory: normal respiratory effort, lungs clear to auscultation Cardiovascular: Rate/Rhythm: regular rate and regular rhythm Gastrointestinal (Abdomen): normal bowel sounds, soft, nontender, no hepatosplenomegaly Neurologic: PERRL, EOMI, accommodation nl, no face palsy, no dysarthria Some ecchymoses on legs. Mild tenderness on left leg. Edema resolving Some chronic hyperpigmented changes on both legs Rt foot drop Power is improved in both legs compared to yesterday Psychiatric: A+Ox3, euthymic affect Results & Data Results & Data Vital Signs (Past 12 Hours) Vital Signs Temp Pulse Resp BP Pulse Ox O2 Del Method 11/25/23 11:25 36.4 C L 68 18 142/74 H 96 Room Air 11/25/23 07:54 36.5 C 75 20 168/76 H 96 Room Air Laboratory Results Abnormal lab results 11/25/23 Range/Units 05:58 WBC 11.51 H (4.8-10.8) K/ul RBC 3.43 L (4.20-5.40) M/uL Hgb 11.1 L (12.0-16.0) g/dl Hct 33.5 L (37.0-47.0) % RDW Std Deviation 51.0 H (36.4-46.3) fL Chloride 108 H (98-107) mmol/L BUN 30 H (6-23) mg/dl BUN/Creatinine Ratio 30.6 H (10-20) Glucose 157 H (70-99(Fasting)) mg/dl
--- NOTE | 2023-11-25 13:13 | Orthopedic Consultation ---
Date of Service November 25, 2023 History of Present Illness Reason for Consultation: Low back pain, leg pain. Requesting Physician: . Attending Physician: Ely Wood MD 88-year-old female who presented to the emergency department 11/21 for an evaluation of leg weakness and low back pain. The patient does have a history of rheumatoid arthritis. The patient's been having problems with chronic pain especially in her lower back as well as her lower legs, she has a history of neuropathy, recent development of cellulitis in the lower extremities. She has had no new medications. The patient has been having problems ambulating especially over the last 48 hours. Her states that normally she can use a walker but recently she has not been able to due to pain, no reported falls. The patient is been taking her medications as prescribed according to her significant other. She denies having any headache or unilateral weakness. Patient was admitted, started on IV steroids and appropriate pain medications. Today on Saturday the , she reports she has been up out of bed and ambulating to the bathroom using a walker, she notes the symptoms have improved since the admission on Saturday. Exam reveals the patient to have the ability to flex both legs in the 4+ range at the hips, she also has appropriate knee extension strength and 4+ range, her right foot is dropfoot, but she can actually intermittently dorsiflex it with grade 4 strength but not necessarily on a consistent basis, no EHL strength, plantarflexion is in the 4-4+ range. Left leg has at least 4-4+ EHL and ankle dorsiflexion, and appropriate knees flexion and extension strength as documented. MR lumbar spine wo/w con 11/23/2023 3:29 PM CLINICAL HISTORY: Lower extremity weakness TECHNIQUE: 3 plane localizer images, sagittal T2, sagittal T1, sagittal STIR, axial T1, axial T2 along with postcontrast axial T1 and sagittal T1 fat- saturated sequences were obtained of the lumbar spine, before and after intravenous administration of 12 mL of MultiHance. Comparison: Comparison is made to MRI lumbar spine 04/10/2019 CT lumbar spine 11/22/2023 FINDINGS: L2-L4 decompression and fusion is seen. Multilevel compression deformities are seen most prominent at T12 and L1. T12-L1: Broad-based disc bulge with a moderate canal stenosis, AP diameter and 7 mm and moderate right and severe left neural foraminal stenosis L1-L2: No significant abnormality. L2-L3: No significant abnormality. L3-L4: No significant abnormality. L4-L5: Focal right-sided disc bulge is seen severe canal stenosis, AP diameter 4 mm, severe right and left neural foraminal stenosis L5-S1: Broad-based posterior disc bulge is seen with neuroforaminal stenosis. The spinal ligaments are intact, without evidence of disruption or abnormal signal intensity. The spinal cord is normal in signal intensity and there is no evidence of cord contusion. There is no evidence of an extradural, intradural, extramedullary or intramedullary lesion. Visualized soft tissues are normal. IMPRESSION: Multilevel degenerative changes are seen with up to severe canal stenosis, AP diameter 4 mm, and severe bilateral neuroforaminal stenosis. Chronic appearing compression deformities and postsurgical changes as above. ADDENDUM The compression deformity of T12 is new from prior exam but appears chronic without edema. The canal and neuroforaminal stenosis at L4-L5 is significantly increased from prior exam although the findings in the upper lumbar spine are at most minimally progressed. A posterior fluid collection measuring 40 x 12 mm at the surgical site is unchanged. CT OF THE LUMBAR SPINE 11/22/23 CLINICAL HISTORY: Lower extremity weakness. COMPARISON STUDY: Lumbar spine CT June 23, 2021. Thoracolumbar spine radiographs May 16, 2023. Lumbar spine MRI April 10, 2019. CT of the abdomen and pelvis May 08, 2022. FINDINGS: For purposes of numbering on this exam, the L5-S1 disc space is assigned to axial image [id number]. There is mild lumbar spine dextroscoliosis. There is stable postoperative findings consistent with L2-L4 decompression and fusion. The hardware is intact. Multiple old thoracolumbar spine fractures are unchanged in appearance since CT of May 08, 2022 and include fractures of T12, L1, L2, L3 and L4 vertebra. There are no acute lumbar spine fractures. There are no osseous lesions. There is moderate to severe multilevel degenerative disc disease and facet arthrosis. Central canal and neural foramen are suboptimally assessed given CT technique. A 4.5 cm infrarenal abdominal aortic aneurysm has mildly increased in size since CT of April 30, 2022 when it measured 4.2 cm. IMPRESSION: 1. No acute lumbar spine fracture or subluxation. 2. No change in appearance of old thoracolumbar spine fractures since CT of May 08, 2022. 3. Stable postoperative findings following L2-L4 decompression and fusion. 4. Moderate to severe multilevel degenerative disc disease and facet arthrosis within the lumbar spine. Suboptimal evaluation of the central canal given CT technique. 5. Mild increase in caliber of 4.5 cm infrarenal abdominal aortic aneurysm. CT scan and MRI images as listed above from November 21 through November 22 were reviewed, my separate interpretation reveals patient have a prior fusion at L2-3 and L3-4 with instrumentation, there is degenerative changes at adjacent levels both superiorly and inferiorly with compression fractures superiorly, subacute. Main finding being at degenerative changes at L4-5 and L5-S1 with stenosis severe due to combination of facet arthropathy thickened ligamentum flavum and right-sided disc herniation. Impression: Status post L2-L4 fusion now with lumbar disc herniation and severe stenosis at L4-5 along with other multilevel degenerative changes. Plan: Today I spent time talking the patient, this was also performed in conjunction with the medical physician and also quality control representative from [facility]. At this time our plan will be to have the patient continue to undergo antibiotic treatment for lower extremity cellulitis, they will be tapering off the steroids in the next several days, and continue with mobilization which has been successful at this time. I related to both the patient and her son who is pre sent today that I do think she will have to undergo operative intervention due to the amount of stenosis she is having which I think was already present to some degree and then worsen with a disc herniation. My recommendations were for the patient undergo a decompression at this level versus any additional arthrodesis, she indicated she did not want any significant procedures performed outside of the most minimal that would accomplish some improvement in her lower extremities. She has chronic issues with her lower extremity secondary to neuropathy and also the right foot drop. We will wait for the patient to undergo continued rehabilitation and mobilization, and treatment for cellulitis, I will try to get her surgery scheduled in a timely fashion. Allergies Allergy/AdvReac Type Severity Reaction Status Date / Time morphine Allergy Severe SHORTNESS Verified 10/11/23 07:11 OF BREATH lisinopril Allergy Intermediate GI SYMPTOMS Verified 10/11/23 07:11 shrimp Allergy Intermediate GI SYMPTOMS Verified 10/11/23 07:11 Sulfa (Sulfonamide Allergy Intermediate HIVES Verified 10/11/23 07:11 Antibiotics) adhesive AdvReac Intermediate TAPE - RASH Verified 10/11/23 07:11 benzonatate AdvReac Mild GI UPSET Verified 10/11/23 07:11 codeine AdvReac Mild NAUSEA Verified 10/11/23 07:11 Home Medications Medication Instructions Recorded Confirmed Type clonazepam 0.5 mg tablet 0.5 mg PO HS PRN Insomnia 11/14/17 11/22/23 History rosuvastatin 40 mg tablet (Crestor) 40 mg PO DAILY 11/14/17 11/22/23 History aspirin 81 mg tablet,delayed 81 mg PO UD 02/06/18 11/22/23 History release (Adult Low Dose Aspirin) gabapentin 300 mg capsule 300 mg PO BID 12/25/18 11/22/23 History famotidine 20 mg tablet 20 mg PO HS 05/29/21 11/22/23 History amoxicillin 500 mg capsule 2,000 mg PO UD PRN Prophylaxis 06/22/21 11/22/23 History isosorbide mononitrate 30 mg 30 mg PO QAM 04/19/22 11/22/23 History tablet,extended release 24 hr tofacitinib 11 mg tablet,extended 11 mg PO QAM 04/19/22 11/22/23 History release 24 hr (Xeljanz XR) melatonin 5 mg capsule 5 mg PO HS PRN Sleep 07/02/22 11/22/23 History furosemide 20 mg tablet 20 mg PO UD 02/20/23 11/22/23 History ascorbic acid (vitamin C) 500 mg 500 mg PO QAM 03/20/23 11/22/23 History capsule tramadol 50 mg tablet 50 mg PO BID PRN pain #40 tabs 05/16/23 11/22/23 Rx metoprolol succinate 25 mg 25 mg PO BID 07/10/23 11/22/23 History tablet,extended release 24 hr calcium carbonate 500 mg-vitamin 1 tab PO DAILY 11/22/23 11/22/23 History D3 3.125 mcg (125 unit) tablet povidone (PF) 0.5 % eye drops 2 drp ophthalmic (eye) BID 11/22/23 11/22/23 Histo ry (iVizia (PF)) buprenorphine 15 mcg/hour weekly 1 patch transdermal Q7D #4 ea 11/25/23 Rx transdermal patch (Butrans) Past Med/Surg History Problem List (Updated 11/22/23 @ 16:59 by Riya Olson PA-C) Encephalopathy Back pain Paroxysmal supraventricular tachycardia Hx of rheumatoid arthritis Hypertension Chronic diastolic (congestive) heart failure CAD (coronary artery disease) f/u zachary bergeron Acute kidney injury superimposed on CKD Ambulatory dysfunction Elevated troponin I level (Acute) BERNADINE (acute kidney injury) (Acute) Bilateral leg weakness (Acute) Hematoma of right lower leg (Acute) Greater trochanteric pain syndrome Opioid dependence Greater trochanteric bursitis of left hip Rotator cuff arthropathy of left shoulder Mechanical low back pain Medication monitoring encounter Acquired foot deformity Laceration of right knee (Acute) Pressure ulcer of toe of left foot, stage 4 T12 compression fracture Fever (Acute) Weakness (Acute) Lower extremity edema (Chronic) Acquired hammer toe (Chronic) Neuropathy (Chronic) Stage IV pressure ulcer (Acute) Pes anserine bursitis Status post right knee replacement Traumatic open wound of right lower leg (Acute) Immunosuppression due to chronic steroid use Traumatic open wound of right lower leg with delayed healing (Acute) Laceration of elbow, left (Acute) Dehydration (Acute) Pneumonia due to 2019 novel coronavirus (Acute) Acute respiratory failure with hypoxemia (Acute) Acute respiratory failure with hypoxia Multifocal pneumonia Rheumatoid arthritis (Acute) SARS-CoV-2 positive (Acute) Weakness (Acute) Fall Bilateral knee pain History of total right knee replacement Postural imbalance Entrapment neuropathy of peripheral nerve of lower extremity Venous insufficiency of both lower extremities (Chronic) Traumatic open wound of right lower leg (Acute) Pes anserinus tendonitis of right lower extremity Left knee DJD Traumatic wound (Acute) Left knee pain (Chronic) Postoperative seroma (Chronic) L2-4 Lumbar postlaminectomy syndrome (Chronic) Acquired right foot drop Arachnoiditis (Chronic) Lumbar compression fracture (Chronic) L1 acute on chronic MRI 03/[address] 10/17/2020 Pes anserine bursitis Right knee pain Degenerative joint disease of knee Myofascial pain (Chronic) Sacroiliitis (Chronic) Cervical radiculopathy (Chronic) Greater trochanteric bursitis (Chronic) Lumbago (Chronic) Lumbar radiculitis (Chronic) Peripheral neuropathy (Chronic) Facet syndrome, lumbar (Chronic) CAD (coronary artery disease) (Chronic) Osteoarthritis (Chronic) Myocardial infarct, 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) Hypertension (Chronic) Dyslipidemia (Chronic) Osteoporosis (Chronic) Rheumatoid arthritis of shoulder (Chronic) Lumbar spinal stenosis (Chronic) Medical History Hx of supraventricular tachycardia per cardio record 2019 AAA (abdominal aortic aneurysm) per cardio record 2019 GERD (gastroesophageal reflux disease) Hx of migraines Hx of myocardial infarction 2008>per cardio record from 2019 Lumbar spinal stenosis Postlaminectomy syndrome, lumbar region no current issues Dyslipidemia History of COVID-19 2020, admitted to [facility] w/acute resp. failure>no residual effects Neuropathy in both legs, rt>lt Right knee pain Status post TKA taking shots due to bursitis (no shots for at least 3 months) Surgical History Hx of colonoscopy Hx of heart artery stent ~2008, [facility], x1 stent, 2/2 [place] ~2011, [facility], x1 stent, 2/2 heart symptoms; f/u zachary bergeron Hx of cardiac cath ~2008, [facility], x1 stent, 2/2 [place] ~2011, [facility], x1 stent, 2/2 heart symptoms; f/u zachary bergeron History of total shoulder replacement Right History of loop recorder "removed/shut off"; follows with Dr Bergeron S/P total knee arthroplasty Right History of lumbosacral spine surgery 50+ years for first one, 2nd one 2014, both lower back; flexible rainer and does lesi History of PTCA "years ago" History of hysterectomy History of breast biopsy History of tonsillectomy History of adenoidectomy History of angioplasty Family History Father Myocardial infarction Brother Myocardial infarction Other Family history non-contributory Denies family history of Ovarian cancer Prostate cancer Breast cancer Colorectal cancer Social History (Updated 11/22/23 @ 14:04 by Riya Olson PA-C) Smoking Status: Former smoker Tobacco Type: Cigarettes Second Hand Exposure: Yes (hx); Do You Dip or Chew Tobacco: No; Hx Alcohol Use: Yes (2 glasses wine a day) Alcohol type: wine Alcohol type Comment: In the evenings. Alcohol Intake Frequency: 4 or More x per/Week Preferred Language: Maori Communication Ability: Effective Visual Impairment: Limited Hearing Ability: Normal Waste Minimization Technician Required: No Beliefs That Will Affect Care: None marital status: Current Living Situation: Spouse current occupational status: retired How many Children do You have: 7 Feels Safe at Home: Yes Safety Concerns: Feels Safe At This Time Diet: regular during the past year weight has: remained stable Assistive Devices: Lift Chair and Walker Review of Systems All systems reviewed & are unremarkable except as noted in HPI & below. Physical Exam . Results & Data Results & Data Laboratory Results . Diagnostic Findings . PG Care Time/CCT Total # of Minutes Spent Total Time Spent with Patient: Total time spent is greater than 50% in coordination of care (as documented) at patient's floor/unit and/or counseling patient: Coding Level of Care Code 13024 IN/OBS CONSULT LVL 3,45M
--- NOTE | 2023-11-25 13:34 | Cardiology Consultation ---
Date of Consultation November 25, 2023 Assessment & Plan (1) Preop cardiovascular exam: (2) Ambulatory dysfunction: (3) Lumbar spinal stenosis: (4) Elevated troponin I level: (5) Cellulitis of lower extremity: (6) CAD (coronary artery disease): (7) AAA (abdominal aortic aneurysm) without rupture: Plan Patient here with ambulatory dysfunction, LE weakness and found to have worsening DDD/spinal stenosis of the lumbar spine. Ortho consulted for further evaluation and treatment. Treated for LE cellulitis with b/l erythema and chronic venous stasis changes. continue antibiotics per hospitalist. Edema improved from admission. BERNADINE on admission suggesting dehydration. Furosemide held for a few days Creatinine back to baseline and furosemide 20 mg M/W/ resumed. Appears euvolemic Cardiology consulted for possible perioperative management. Incidentally found to have elevated troponin on admission around 100-120. No acute ischemic EKG changes. No CP/dyspnea to suggest angina. Echo without wall motion abnormalities, preserved EF, no valvular disease. She had a history of CAD s/p remote stenting x2 to the LAD. Continue ASA, statin, metoprolol, isosorbide. She denies recent anginal complaints at home. She has AAA, reading 4.[address] scan this admission, previously reported at 4.0-4.2 earlier in 2023. Will have her f/u with her vascular surgery team as outpatient. Based on her history, age, comorbidities patient is considered at least moderate risk for cardiac complications in regards to spinal surgery. However, based on the above tests, findings, and her current symptoms, she appears optimized from a cardiac standpoint if she requires spinal surgery in the near future. i do recommend treating her cellulitis and finish course of antibiotics prior to surgical intervention. After discussion with patient/son, similar discussion was had with orthopedics. She will proceed with rehab to see if her ambulatory weakness/pain improves. If no improvement, will then consider surgery. Case discussed with Dr. Schwab I spent a total of 55 minutes on the date of service in preparation, delivery, and documentation of the care provided to this patient, excluding any time spent in the performance of separately billed services. Disha Pérez PA-C Department of Cardiology, [facility] This chart was completed in part utilizing Speech Voice Recognition Software. Grammatical errors, random word insertions, pronoun errors, and incomplete sentences are an occasional consequence of this system due to software limitations, ambient noise, and hardware issues. Any formal questions or concerns about the content, text, or information contained within the body of this dictation should be directly addressed to the provider for clarification. Supervising Physician Co-Signing Physician Notes Attending attestation: Case reviewed with the advanced practitioner. I have personally performed a history and physical examination on the patient. I have reviewed the advanced practitioner's documentation on the date of service referenced in note, and I agree with, and take responsibility for the plan of care. Subjective: Patient without acute complaint. Son, Clifford, present at the bedside during my assessment. Denies recent chest pain or worsening shortness of breath. Exam: Resolving left > right LE erhythema/ cellulitis noted. Data: EKG performed 11/23/2023 interpreted independently: Sinus rhythm 75 bpm, nonspecific diffuse T wave flattening noted. Relatively unchanged compared to previous. Impression/ Plan: Preoperative cardiac evaluation -Patient [place] to be at moderate risk for perioperative cardiac complication due to age and comorbidities. No signs or symptoms of worsening ischemic heart disease, arrhythmia, or congestive heart failure noted. Agree with ongoing treatment until lower extremity cellulitis resolves and time to wean from corticosteroids. Per review of spine surgery note, plan would be to complete a course of antibiotics and rehabilitation first which sounds prudent. No additional cardiac testing is felt to be indicated at this time as it is felt that it would not reduce her risk. Would recommend ongoing treatment with aspirin 81 mg daily if felt reasonable from a surgery perspective given history of remote coronary stents to the LAD. However, if this needs to be held, would minimize interval off of aspirin to 5 days preoperatively. While at rehab, would recommend Ongoing treatment with pharmacologic DVT prophylaxis with agent such as ongoing subcutaneous heparin, once daily Lovenox, or low-dose Eliquis, 2.5 mg twice daily given risk factors of stasis. I spent a total of 20 minutes coordinating, documenting, and providing care for this patient excluding time spent in the performance of separately billed services or time spent by another provider. Medardo Schwab, History of Present Illness Reason for Consultation: Preop Requesting Physician: Wilman carlson Attending Physician: Dr. Schwab History of Present Illness Patient is an 88 year old female admitted to [facility] several days ago for weakness of the lower extremities, ambulatory dysfunction and back pain. Found to have significant DDD of the lumbar spine with lumbar disc herniation and severe stenosis at L4-L5. Ortho consulted for possible future spinal surgery. Also found to have possible LE cellulitis. Started on IV antibiotics. Mild troponin elevation on arrival at [phone]. EKG on admission demonstrated NSR, nonspecific T wave abnormality. No acute ischemic changes. Echo completed demonstrated normal LVEF, no wall motion abnormalities, moderate LVH, no significant valvular disease. BERNADINE also noted on arrival with creatinine of 1.4. Furosemide held and creatinine improved. Furosemide resumed at 20 mg M/W/F (home dose) today Patient denies recent chest pain at home or during admission. No need for SL nitro. No recent dyspnea/SOB. She reported increased LE edema on admission, but now improved. No orthopnea, PND or edema. She only takes furosemide several days per week, not daily. Buttock wound, previously followed by wound clinic [facility] now improved. She reports erythema of her lower extremities has been present for several weeks. At time of consult, patient resting in bed comfortably. Son at bedside. Ortho spine surgeon had just been in to discuss recent results. All were in agreement to go for rehab and treat cellulitis and then consider spinal surgery as an outpatient if symptoms do not improve. History includes: 1. Atherosclerotic coronary disease with prior anterior myocardial infarction in January of 2009 with stenting of the left anterior descending. 2. Recurrent angina pectoris with subsequent repeat coronary intervention with stenting of the mid to distal LAD in October of 2011, receiving drug-eluting stent. 3. Hyperlipidemia. 4. Chronic rheumatoid arthritis on immunosuppressive therapy. 5. History of prior lumbar laminectomy in November of 2014 with chronic postoperative pain, post-laminectomy syndrome, peripheral neuropathy 6: History of syncopal event, May 2017. 7. Nonsustained ventricular tachycardia on event monitor 8. EP study negative for inducible arrhythmia December 27, 2017 with associated loop recorder implantation 9. Hospitalization October 2020 following a fall with multiple contusions and COVID pneumonitis 10. Distal abdominal aortic aneurysm with ulcer 11. Bilateral carotid artery disease moderate left greater than right Allergies Allergy/AdvReac Type Severity Reaction Status Date / Time morphine Allergy Severe SHORTNESS Verified 10/11/23 07:11 OF BREATH lisinopril Allergy Intermediate GI SYMPTOMS Verified 10/11/23 07:11 shrimp Allergy Intermediate GI SYMPTOMS Verified 10/11/23 07:11 Sulfa (Sulfonamide Allergy Intermediate HIVES Verified 10/11/23 07:11 Antibiotics) adhesive AdvReac Intermediate TAPE - RASH Verified 10/11/23 07:11 benzonatate AdvReac Mild GI UPSET Verified 10/11/23 07:11 codeine AdvReac Mild NAUSEA Verified 10/11/23 07:11 Home Medications Medication Instructions Recorded Confirmed Type clonazepam 0.5 mg tablet 0.5 mg PO HS PRN Insomnia 11/14/17 11/22/23 History rosuvastatin 40 mg tablet (Crestor) 40 mg PO DAILY 11/14/17 11/22/23 History aspirin 81 mg tablet,delayed 81 mg PO UD 02/06/18 11/22/23 History release (Adult Low Dose Aspirin) gabapentin 300 mg capsule 300 mg PO BID 12/25/18 11/22/23 History famotidine 20 mg tablet 20 mg PO HS 05/29/21 11/22/23 History amoxicillin 500 mg capsule 2,000 mg PO UD PRN Prophylaxis 06/22/21 11/22/23 History isosorbide mononitrate 30 mg 30 mg PO QAM 04/19/22 11/22/23 History tablet,extended release 24 hr tofacitinib 11 mg tablet,extended 11 mg PO QAM 04/19/22 11/22/23 History release 24 hr (Xeljanz XR) melatonin 5 mg capsule 5 mg PO HS PRN Sleep 07/02/22 11/22/23 History furosemide 20 mg tablet 20 mg PO UD 02/20/23 11/22/23 History ascorbic acid (vitamin C) 500 mg 500 mg PO QAM 03/20/23 11/22/23 History capsule tramadol 50 mg tablet 50 mg PO BID PRN pain #40 tabs 05/16/23 11/22/23 Rx metoprolol succinate 25 mg 25 mg PO BID 07/10/23 11/22/23 History tablet,extended release 24 hr calcium carbonate 500 mg-vitamin 1 tab PO DAILY 11/22/23 11/22/23 History D3 3.125 mcg (125 unit) tablet povidone (PF) 0.5 % eye drops 2 drp ophthalmic (eye) BID 11/22/23 11/22/23 History (iVizia (PF)) buprenorphine 15 mcg/hour weekly 1 patch transdermal Q7D #4 ea 11/25/23 Rx transdermal patch (Butrans) Patient History Medical History Hx of supraventricular tachycardia per cardio record 2019 AAA (abdominal aortic aneurysm) per cardio record 2019 GERD (gastroesophageal reflux disease) Hx of migraines Hx of myocardial infarction 2008>per cardio record from 2019 Lumbar spinal stenosis Postlaminectomy syndrome, lumbar region no current issues Dyslipidemia History of COVID-19 2020, admitted to [facility] w/acute resp. failure>no residual effects Neuropathy in both legs, rt>lt Right knee pain Status post TKA taking shots due to bursitis (no shots for at least 3 months) Surgical History Hx of colonoscopy Hx of heart artery stent ~2008, [facility], x1 stent, 2/2 RI ~2011, [facility], x1 stent, 2/2 heart symptoms; f/u zachary bergeron Hx of cardiac cath ~2008, [facility], x1 stent, 2/2 RI ~2011, [facility] [place], x1 stent, 2/2 heart symptoms; f/u zachary bergeron History of total shoulder replacement Right History of loop recorder "removed/shut off"; follows with Dr Bergeron S/P total knee arthroplasty Right History of lumbosacral spine surgery 50+ years for first one, 2nd one 2014, both lower back; flexible rainer and does lesi History of PTCA "years ago" History of hysterectomy History of breast biopsy History of tonsillectomy History of adenoidectomy History of angioplasty Family History Father Myocardial infarction Brother Myocardial infarction Other Family history non-contributory Denies family history of Ovarian cancer Prostate cancer Breast cancer Colorectal cancer Social History (Updated 11/22/23 @ 14:04 by Riya Olson PA-C) Smoking Status: Former smoker Tobacco Type: Cigarettes Second Hand Exposure: Yes (hx); Do You Dip or Chew Tobacco: No; Hx Alcohol Use: Yes (2 glasses wine a day) Alcohol type: wine Alcohol type Comment: In the evenings. Alcohol Intake Frequency: 4 or More x per/Week Preferred Language: Gabonese Communication Ability: Effective Visual Impairment: Limited Hearing Ability: Normal Manager Ambulatory Required: No Beliefs That Will Affect Care: None marital status: Current Living Situation: Spouse current occupational status: retired How many Children do You have: 7 Feels Safe at Home: Yes Safety Concerns: Feels Safe At This Time Diet: regular during the past year weight has: remained stable Assistive Devices: Lift Chair and Walker Review of Systems Review of Systems: All systems reviewed & are unremarkable except as noted in HPI & below Physical Exam Constitutional: WD/WN, vitals as above well nourished and average body habitus; no acute distress Neck: trachea midline, no thyromegaly Respiratory: normal respiratory effort; no cough Auscultation: lungs clear to auscultation bilaterally Cardiovascular: Rate/Rhythm: regular rate and regular rhythm Heart Sounds: no murmur Vessels: no JVD Extremities: no edema B/L mild erythema with chronic venous stasis changes Gastrointestinal (Abdomen): normal bowel sounds, soft, nontender, no hepatosplenomegaly Neurologic: PERRL, EOMI, accommodation nl, no face palsy, no dysarthria Psychiatric: A+Ox3, euthymic affect Results & Data Vital Signs (Past 12 Hours) Vital Signs Temp Pulse Pulse Resp BP Pulse Ox O2 Del Method 11/25/23 11:25 36.4 C L 68 18 142/74 H 96 Room Air 11/25/23 07:54 36.5 C 75 20 168/76 H 96 Room Air 11/25/23 07:16 66 Laboratory Results CBC 11/25/23 Range/Units 05:58 WBC 11.51 H (4.8-10.8) K/ul RBC 3.43 L (4.20-5.40) M/uL Hgb 11.1 L (12.0-16.0) g/dl Hct 33.5 L (37.0-47.0) % Plt Count 268 (130-400) K/uL Comprehensive Metabolic Panel 11/25/23 Range/Units 05:58 Sodium 139 (136-145) mmol/L Potassium 4.3 (3.5-5.1) mmol/L Chloride 108 H (98-107) mmol/L Carbon Dioxide 25 (21-32) mmol/L BUN 30 H (6-23) mg/dl Creatinine 0.98 (0.6-1.2) mg/dl Glucose 157 H (70-99(Fasting)) mg/dl Calcium 9.2 (8.6-10.3) mg/dl Intake and Output 11/24/23 11/25/23 11/25/23 22:59 06:59 14:59 Intake Total 120 / 650 50 / 50 Output Total 575 / 800 1200 / 1200 Balance 120 / -150 -575 / -150 -1150 / -1150 Intake: IV 50 / 50 cefTRIAXone SODIUM 1,000 mg In 50 / 50 50 ml @ 100 mls/hr IV Q24H [facility] Rx#:[id number] Oral 120 / 600 Output: Urine Amount (Catheter) 575 / 800 1200 / 1200 Kinney/Indwelling 575 / 800 1200 / 1200 Other: Weight 69.7 kg Weight Measurement Method Built in [facility] Diagnostic Findings Telemetry reviewed: NSR with PAC's. No arrhythmias EKG reviewed from 11/22/23: NSR with non specific T wave abnormality No acute ischemic changes EKG reviewed from 11/23/23: NSR at 75 bmp non specific T wave abnormality No acute changes Echo report reviewed dated 11/21/13: LV cavity size is small Moderate concentric LVH Normal LVEF at 65-70% Grade I diastolic dysfunction No significant valvular disease Chest xray: IMPRESSION: 1. Cardiomegaly without acute chest disease. 2. Blunting of the left costophrenic angle may represent trace effusion versus scarring. Medications Administered Current Inpatient Medications Acetaminophen (Acetaminophen 325 Mg Tab) 650 mg PO Q4H PRN PRN Reason: Pain or Fever Stop: 12/22/23 14:06 Last Admin: 11/25/23 05:39 Dose: 650 mg Ascorbic Acid (Ascorbic Acid 500 Mg Tab) 500 mg PO QAM [facility] Stop: 12/23/23 08:59 Last Admin: 11/25/23 09:15 Dose: 500 mg Aspirin (Aspirin 81 Mg Ectab) 81 mg PO MoWeFr@0900 [facility] Stop: 12/25/23 08:59 Last Admin: 11/25/23 09:16 Dose: 81 mg Buprenorphine HCl (Buprenorphine 5 Mcg/Hr Tdsy) 3 patch TD Q7D [facility] Stop: 12/25/23 10:59 Last Admin: 11/25/23 11:04 Dose: 3 patch Calcium/Vitamin D (Calcium 600mg + Vit D 400 Iu Tab) 1 tab PO DAILY [facility] Stop: 12/23/23 08:59 Last Admin: 11/25/23 09:15 Dose: 1 tab Famotidine (Famotidine 20 Mg Tab) 20 mg PO HS [facility] Stop: 12/22/23 20:59 Last Admin: 11/24/23 22:01 Dose: 20 mg Furosemide (Furosemide 20 Mg Tab) 20 mg PO MoWeFr@0900 [facility] Stop: 12/25/23 08:59 Last Admin: 11/25/23 09:15 Dose: 20 mg Gabapentin (Gabapentin 300 Mg Cap) 300 mg PO BID [facility] Stop: 12/22/23 20:59 Last Admin: 11/25/23 09:15 Dose: 300 mg Heparin Sodium (Porcine) (Heparin Sod 5,000 Unit/0.5 Ml Vial) 5,000 units SQ Q12 [facility] Stop: 12/22/23 20:59 Last Admin: 11/25/23 11:03 Dose: 5,000 units Ceftriaxone Sodium (Rocephin) 1,000 mg in 50 mls @ 100 mls/hr IV Q24H [facility] Stop: 11/30/23 10:59 Last Infusion: 11/25/23 11:35 Dose: Infused Dexamethasone 4 mg/ Syringe 1 mls @ 1 mls/min IV Q6H [facility] Stop: 12/23/23 16:29 Last Admin: 11/25/23 11:02 Dose: 1 mls/min Isosorbide Mononitrate (Isosorbide [place] Extended Rel 30 Mg Tabcr) 30 mg PO QAM [facility] Stop: 12/23/23 08:59 Last Admin: 11/25/23 09:15 Dose: 30 mg Melatonin (Melatonin 3 Mg Tab) 4.5 mg PO HS PRN PRN Reason: Sleep Stop: 12/22/23 14:15 Last Admin: 11/24/23 20:49 Dose: 4.5 mg Metoprolol Succinate (Metoprolol Succ 25mg Ext Rel Tab) 25 mg PO BID [facility] Stop: 12/22/23 20:59 Last Admin: 11/25/23 09:15 Dose: 25 mg Ivizia 0.5% Eye Drops Non-Formulary Patient's Own Med 2 each OP BID [facility] Stop: 12/24/23 20:59 Last Admin: 11/25/23 09:16 Dose: 2 each Ondansetron HCl (Ondansetron Inj 2 Mg/Ml 2 Ml Vial) 4 mg IV Q6H PRN PRN Reason: Nausea Stop: 12/22/23 14:06 Polyethylene Glycol (Polyethylene (Miralax) 17 Gm Pack) 17 gm PO DAILY PRN PRN Reason: Constipation Stop: 12/22/23 14:06 Last Admin: 11/25/23 11:06 Dose: 17 gm Rosuvastatin Calcium (Rosuvastatin Calcium 20 Mg Tab) 40 mg PO DAILY [facility] Stop: 12/23/23 08:59 Last Admin: 11/25/23 09:15 Dose: 40 mg Tofacitinib (Tofacitinib Citrate Xr 11 Mg) 1 each PO DAILY [facility] Stop: 12/24/23 08:59 Last Admin: 11/25/23 09:16 Dose: 1 each Tramadol HCl (Tramadol Hcl 50 Mg Tablet) 25 mg PO BID PRN PRN Reason: Moderate to severe pain Stop: 12/23/23 08:59 (5) Cellulitis of lower extremity Laterality: unspecified laterality Qualified Code(s): L03.119 - Cellulitis of unspecified part of limb (6) CAD (coronary artery disease) Associated angina: without angina Coronary Disease-Associated Artery/Lesion type: [place] artery [place] vs. transplanted heart: [place] heart Qualified Code(s): I25.10 - Atherosclerotic heart disease of [place] coronary artery without angina pectoris
[2023-11-25] MEDS: EUCERIN CR 120 GM JAR EXT SCH (20:00)
[2023-11-26 07:01] LABS: Hematocrit (blood only) 33.1 % (37.0-47.0); Hemoglobin 11.4 g/dl (12.0-16.0); Mean Corpuscular Hemoglobin 32.7 pg (25.0-34.0); Mean Corpuscular Hgb Conc 34.4 g/dL (32.0-36.0); Mean Corpuscular Volume 94.8 fL (80.0-100.0); Platelet Count 287 K/uL (130-400); RDW Coefficient of Variation 14.2 % (11.5-14.5); Red Blood Count 3.49 M/uL (4.20-5.40); White Blood Count 9.56 K/ul (4.8-10.8)
[2023-11-26 07:17] LABS: BUN Creatinine Ratio 35.9 (10-20); Calcium 9.3 mg/dl (8.6-10.3); Creatinine Clr Calc Pharmacy 41.1 ml/min; Est GFR (African American) 64.9 ml/min; Magnesium 2.3 mg/dl (1.7-2.4); Phosphorus 2.8 mg/dl (2.5-4.9); Potassium 4.3 mmol/L (3.5-5.1)
--- NOTE | 2023-11-26 11:17 | Cardiology Progress Note ---
Date of Service November 26, 2023 Assessment & Plan (1) Preop cardiovascular exam: (2) Ambulatory dysfunction: (3) Lumbar spinal stenosis: (4) Elevated troponin I level: (5) Cellulitis of lower extremity: (6) CAD (coronary artery disease): (7) AAA (abdominal aortic aneurysm) without rupture: Plan 11/25/23: Patient here with ambulatory dysfunction, LE weakness and found to have worsening DDD/spinal stenosis of the lumbar spine. Ortho consulted for further evaluation and treatment. Treated for LE cellulitis with b/l erythema and chronic venous stasis changes. continue antibiotics per hospitalist. Edema improved from admission. BERNADINE on admission suggesting dehydration. Furosemide held for a few days Creatinine back to baseline and furosemide 20 mg M/W/F resumed. Appears euvolemic Cardiology consulted for possible perioperative management. Incidentally found to have elevated troponin on admission around 100-120. No acute ischemic EKG changes. No CP/dyspnea to suggest angina. Echo without wall motion abnormalities, preserved EF, no valvular disease. She had a history of CAD s/p remote stenting x2 to the LAD. Continue ASA, statin, metoprolol, isosorbide. She denies recent anginal complaints at home. She has AAA, reading 4.[address] scan this admission, previously reported at 4.0-4.2 earlier in 2023. Will have her f/u with her vascular surgery team as outpatient. 11/26/23: No cardiac events overnight. No arrhythmias on telemetry. Cellulitis improving. Plan is to finish antibiotics, wean corticosteroids, and discharge to rehab facility to improve mobility and then in several weeks proceed with spinal surgery Based on her history, age, and comorbidities, patient is considered moderate risk for perioperative cardiac complications in regards to spinal surgery. She has had no recent anginal complaints, no recent arrhythmias and no symptoms to suggest CHF. Her echo this admission was with preserved LVEF without significant valvular disease. Once she finishes her antibiotic therapy, she appears optimized from a cardiac standpoint to proceed with spinal surgery. Would recommend ongoing treatment with ASA 81 mg daily given history of coronary stents. But if absolutely indicated from a surgical perspective, this could be held for several days. No further cardiac testing or work up is indicated at this time. Will sign off. Possible discharge later today Would continue all other current/home cardiac medications including ASA, statin, isosorbide, metoprolol, and furosemide 20 M/W/F. Case discussed with Dr. Schwab I spent a total of 45 minutes on the date of service in preparation, delivery, and documentation of the care provided to this patient, excluding any time spent in the performance of separately billed services. Disha Pérez PA-C Department of Cardiology, [facility] This chart was completed in part utilizing Speech Voice Recognition Software. Grammatical errors, random word insertions, pronoun errors, and incomplete sentences are an occasional consequence of this system due to software limita tions, ambient noise, and hardware issues. Any formal questions or concerns about the content, text, or information contained within the body of this dictation should be directly addressed to the provider for clarification. Admission and Anticipated Discharge Date Admission Date: November 22, 2023 Supervising Physician Co-Signing Physician Notes Attending attestation: Case reviewed with the advanced practitioner. I have personally performed a history and physical examination on the patient. I have reviewed the advanced practitioner's documentation on the date of service referenced in note, and I agree with, and take responsibility for the plan of care. Preoperative cardiac evaluation -Patient [place] to be at moderate risk for perioperative cardiac complication due to age and comorbidities. No signs or symptoms of worsening ischemic heart disease, arrhythmia, or congestive heart failure noted. Agree with ongoing treatment until lower extremity cellulitis resolves and time to wean from corticosteroids. Not chronic treatment with Tofacitinib for RA and is therefore immunosuppressed. Per review of spine surgery note, plan would be to complete a course of antibiotics and rehabilitation first which sounds prudent. No additional cardiac testing is felt to be indicated at this time as it is felt that it would not reduce her risk. Would recommend ongoing treatment with aspirin 81 mg daily if felt reasonable from a surgery perspective given history of remote coronary stents to the LAD. However, if this needs to be held, would minimize interval off of aspirin to 5 days preoperatively. While at rehab, would recommend Ongoing treatment with pharmacologic DVT prophylaxis with agent such as ongoing subcutaneous heparin, once daily Lovenox, or low-dose Eliquis, 2.5 mg twice daily given risk factors of stasis. I spent a total of 20 minutes coordinating, documenting, and providing care for this patient excluding time spent in the performance of separately billed services or time spent by another provider. Medardo Schwab, DO Subjective Patient resting in bed comfortably. She denies acute cardiac complaints. No recent chest pain or unusual shortness of breath. She was able to ambulate with assistance to the restroom this morning. Ongoing weakness in lower extremities noted. Erythema mildly improved today. no significant edema. Review of Systems Review of Systems: All systems reviewed & are unremarkable except as noted in HPI & below Physical Exam Constitutional: WD/WN, vitals as above well nourished and average body habitus; no acute distress Neck: trachea midline, no thyromegaly Respiratory: normal respiratory effort; no cough Auscultation: lungs clear to auscultation bilaterally Cardiovascular: Rate/Rhythm: regular rate and regular rhythm Heart Sounds: no murmur Vessels: no JVD Extremities: no edema (L>R erythema. ) Gastrointestinal (Abdomen): normal bowel sounds, soft, nontender, no hepatosplenomegaly Neurologic: PERRL, EOMI, accommodation nl, no face palsy, no dysarthria Psychiatric: A+Ox3, euthymic affect Results & Data Vital Signs (Past 12 Hours) Vital Signs Temp Pulse Pulse Pulse Resp BP Pulse Ox 11/26/23 08:31 62 11/26/23 08:07 36.4 C L 59 L 20 166/80 H 97 11/26/23 05:47 36.6 C 55 L 17 165/83 H 93 11/25/23 23:39 36.5 C 58 L 18 129/71 93 O2 Del Method 11/26/23 08:31 11/26/23 08:07 Room Air 11/26/23 05:47 Room Air 11/25/23 23:39 Room Air Laboratory Results CBC 11/26/23 Range/Units 06:12 WBC 9.56 (4.8-10.8) K/ul RBC 3.49 L (4.20-5.40) M/uL Hgb 11.4 L (12.0-16.0) g/dl Hct 33.1 L (37.0-47.0) % Plt Count 287 (130-400) K/uL Comprehensive Metabolic Panel 11/26/23 Range/Units 06:12 Sodium 139 (136-145) mmol/L Potassium 4.3 (3.5-5.1) mmol/L Chloride 107 (98-107) mmol/L Carbon Dioxide 24 (21-32) mmol/L BUN 33 H (6-23) mg/dl Creatinine 0.92 (0.6-1.2) mg/dl Glucose 162 H (70-99(Fasting)) mg/dl Calcium 9.3 (8.6-10.3) mg/dl Intake and Output 11/25/23 11/26/23 11/26/23 22:59 06:59 14:59 Intake Total 120 / 530 120 / 530 Balance 120 / -670 120 / -670 Intake: Oral 120 / 480 120 / 480 Other: # Unmeasured Voids 1 1 1 Weight 68.9 kg Weight Measurement Method Built in [facility] Diagnostic Findings Telemetry reviewed: NSR with occ atrial/ventricular ectopy. no concerning arrhythmias. Medications Administered Current Inpatient Medications Acetaminophen (Acetaminophen 325 Mg Tab) 650 mg PO Q4H PRN PRN Reason: Pain or Fever Stop: 12/22/23 14:06 Last Admin: 11/25/23 19:58 Dose: 650 mg Ascorbic Acid (Ascorbic Acid 500 Mg Tab) 500 mg PO QAM [facility] Stop: 12/23/23 08:59 Last Admin: 11/26/23 08:44 Dose: 500 mg Aspirin (Aspirin 81 Mg Ectab) 81 mg PO MoWeFr@0900 [facility] Stop: 12/25/23 08:59 Last Admin: 11/25/23 09:16 Dose: 81 mg Buprenorphine HCl (Buprenorphine 5 Mcg/Hr Tdsy) 3 patch TD Q7D [facility]UL[facility] Stop: 12/25/23 10:59 Last Admin: 11/25/23 11:04 Dose: 3 patch Calcium/Vitamin D (Calcium 600mg + Vit D 400 Iu Tab) 1 tab PO DAILY [facility] Stop: 12/23/23 08:59 Last Admin: 11/26/23 08:45 Dose: 1 tab Famotidine (Famotidine 20 Mg Tab) 20 mg PO HS [facility] Stop: 12/22/23 20:59 Last Admin: 11/25/23 19:56 Dose: 20 mg Furosemide (Furosemide 20 Mg Tab) 20 mg PO MoWeFr@0900 [facility] Stop: 12/25/23 08:59 Last Admin: 11/25/23 09:15 Dose: 20 mg Gabapentin (Gabapentin 300 Mg Cap) 300 mg PO BID [facility] Stop: 12/22/23 20:59 Last Admin: 11/26/23 08:44 Dose: 300 mg Heparin Sodium (Porcine) (Heparin Sod 5,000 Unit/0.5 Ml Vial) 5,000 units SQ Q12 [facility] Stop: 12/22/23 20:59 Last Admin: 11/26/23 11:06 Dose: 5,000 units Ceftriaxone Sodium (Rocephin) 1,000 mg in 50 mls @ 100 mls/hr IV Q24H [facility]UL[facility] Stop: 11/30/23 10:59 Last Admin: 11/26/23 11:06 Dose: 100 mls/hr Dexamethasone 4 mg/ Syringe 1 mls @ 1 mls/min IV Q6H [facility]UL[facility] Stop: 12/23/23 16:29 Last Admin: 11/26/23 11:06 Dose: 1 mls/min Isosorbide Mononitrate (Isosorbide [place] Extended Rel 30 Mg Tabcr) 30 mg PO QAM [facility] Stop: 12/23/23 08:59 Last Admin: 11/26/23 08:44 Dose: 30 mg Melatonin (Melatonin 3 Mg Tab) 4.5 mg PO HS PRN PRN Reason: Sleep Stop: 12/22/23 14:15 Last Admin: 11/25/23 19:57 Dose: 4.5 mg Metoprolol Succinate (Metoprolol Succ 25mg Ext Rel Tab) 25 mg PO BID [facility] Stop: 12/22/23 20:59 Last Admin: 11/26/23 08:45 Dose: 25 mg Multi-Ingredient Cream (Eucerin Cr 120 Gm Jar) 1 appln EXT BID [facility] Stop: 12/25/23 20:59 Last Admin: 11/26/23 11:07 Dose: 1 appln Ivizia 0.5% Eye Drops Non-Formulary Patient's Own Med 2 each OP BID [facility] Stop: 12/24/23 20:59 Last Admin: 11/26/23 08:44 Dose: 2 each Ondansetron HCl (Ondansetron Inj 2 Mg/Ml 2 Ml Vial) 4 mg IV Q6H PRN PRN Reason: Nausea Stop: 12/22/23 14:06 Polyethylene Glycol (Polyethylene (Miralax) 17 Gm Pack) 17 gm PO DAILY PRN PRN Reason: Constipation Stop: 12/22/23 14:06 Last Admin: 11/26/23 08:43 Dose: 17 gm Rosuvastatin Calcium (Rosuvastatin Calcium 20 Mg Tab) 40 mg PO DAILY [facility] Stop: 12/23/23 08:59 Last Admin: 11/26/23 08:44 Dose: 40 mg Tofacitinib (Tofacitinib Citrate Xr 11 Mg) 1 each PO DAILY [facility] Stop: 12/24/23 08:59 Last Admin: 11/26/23 08:45 Dose: 1 each Tramadol HCl (Tramadol Hcl 50 Mg Tablet) 25 mg PO BID PRN PRN Reason: Moderate to severe pain Stop: 12/23/23 08:59 (5) Cellulitis of lower extremity Laterality: unspecified laterality Qualified Code(s): L03.119 - Cellulitis of unspecified part of limb (6) CAD (coronary artery disease) Associated angina: without angina Coronary Disease-Associated Artery/Lesion type: [place] artery [place] vs. transplanted heart: [place] heart Qualified Code(s): I25.10 - Atherosclerotic heart disease of [place] coronary artery without angina pectoris
[2023-11-26] MEDS: cephALEXin 500 MG CAP PO SCH (13:33)
[2023-11-26] MEDS: dexAMETHasone 4 MG TAB PO SCH (13:33)
--- NOTE | 2023-11-26 16:03 | Hospitalist Progress Note ---
Date of Service November 26, 2023 Assessment & Plan (1) Ambulatory dysfunction: (2) Bilateral leg weakness: (3) Back pain: Plan: 88-year-old female with PMH CAD s/p stent, HTN, dyslipidemia, paroxysmal SVT, RA, CKD III, GERD, chronic back and extremity pain, and others listed below presented to ER with complaint of leg weakness and ambulatory dysfunction started night before presentation. Chronic back pain and chronic BLE pain. Uses walker and lift chair at baseline. Presented with increased BLE weakness and unable to ambulate In ER afebrile, vitals stable. On presentation, no significant electrolyte abnormality. Negative influenza, RSV, COVID PCR. CT Head: no acute abnormality CT Lumbar spine: No acute lumbar spine fracture or subluxation. No change in appearance of old thoracolumbar spine fractures since CT of May 08, 2022. Stable postoperative findings following L2-L4 decompression and fusion. Moderate to severe multilevel degenerative disc disease and facet arthrosis within the lumbar spine. Suboptimal evaluation of the central canal given CT technique.. Mild increase in caliber of 4.5 cm infrarenal abdominal aortic aneurysm. MRI Thorax and lumbar noted Multilevel degenerative changes. Broad based disc bulge with moderate canal stenosis at T12-L1, moderate right and severe left neural foraminal stenosis Focal right sided disc bulge at L4-5 with severe canal stenosis, AP diameter of 4mm, severe right and left neural foraminal stenosis Broad based posterior disc bulge is seen with neuroforaminal stenosis Compression deformity of T12 is new from prior exam but appears chronic without edema. The canal and neuroforaminal stenosis at L4-5 is significantly increased from prior exam although finding in the upper lumbar spine are at most minimally progressed. A posterior fluid collection measuring [id number] at surgical site is unchanged On 11/22/23, I discussed MRI findings with Radiologist Dr Ortiz I updated patient and granddaughter about findings on 11/22/23. Power is improving Ortho spine eval noted. Planning for surgery soon after treatment of cellulitis, likely in the next 1-2 weeks Cardiology preop eval recs noted Continue dexamethasone. Change from IV to po dexa Dexamethasone taper : 4mg q6h for another day, then q8h for 3 days, then q12h for 3 days, then daily for 3 days Left leg cellulitis improving Ceftriaxone changed to po keflex Doppler of LLE did not show acute DVT (4) Acute kidney injury superimposed on CKD: Plan: BERNADINE on CKD III Cr: 1.4. Baseline Cr: 1.0 Got IVF Cr is 0.92 Home lasix 20mg MWF has been resumed Monitor renal function (5) Encephalopathy: Plan: Was reported to be more drowsy on day of admission CT Head: no acute intracranial abnormality Resolved Patient is awake, alert oriented to person,place and time Has great insight (6) Elevated troponin I level: (7) Chronic diastolic (congestive) heart failure: (8) CAD (coronary artery disease): Plan: History CAD s/p stent Troponin: 108 -->119-->106. EKG without acute ST elevation CK: 82 Denies CP, SOB Echo showed LV cavity is small, mod conc LVH, normal wall motion, EF 65-70%, Grade I DD, no significant valvular disease Continue aspirin, metoprolol succinate, isosorbide, rosuvastatin (9) Hx of rheumatoid arthritis: Plan: Continue Xeljanz (10) Paroxysmal supraventricular tachycardia: Plan: Continue metoprolol succinate DVT Prophylaxis Heparin SQ Admit med tele DNR/DNI Follows with Dr Mcnair for routine care Updated and at bedside CM notified me about [facility] was denied and to do peer to peer Peer to peer completed with insurance and Acute rehab approved Plan for possible dc to rehab in AM I spent a total of 50 minutes coordinating, documenting and providing care for this patient excluding time spent in performance of separately billed services Admission and Anticipated Discharge Date Admission Date: November 22, 2023 Subjective Patient seen and examined Reports continued improvement in leg weakness Reports leg pain is improved Denied any other complaints Physical Exam Constitutional: + well hydrated; no acute distress Eyes: PERRL, conjunctivae normal, anicteric sclerae ENMT: external ear and nose normal, oropharynx normal Respiratory: normal respiratory effort, lungs clear to auscultation Cardiovascular: Rate/Rhythm: regular rate and regular rhythm Gastrointestinal (Abdomen): normal bowel sounds, soft, nontender, no hepatosplenomegaly Musculoskeletal: Some ecchymoses on legs. Mild tenderness on left leg. Edema resolving Rt foot drop Power is improved in both legs Neurologic: PERRL, EOMI, accommodation nl, no face palsy, no dysarthria Psychiatric: A+Ox3, euthymic affect Results & Data Results & Data Vital Signs (Past 12 Hours) Vital Signs Temp Pulse Pulse Pulse Resp BP Pulse Ox 11/26/23 15:37 58 L 11/26/23 15:27 36.7 C 63 20 145/67 H 96 11/26/23 11:44 36.9 C 59 L 18 154/77 H 96 11/26/23 08:31 62 11/26/23 08:07 36.4 C L 59 L 20 166/80 H 97 11/26/23 05:47 36.6 C 55 L 17 165/83 H 93 O2 Del Method 11/26/23 15:37 11/26/23 15:27 Room Air 11/26/23 11:44 Room Air 11/26/23 08:31 11/26/23 08:07 Room Air 11/26/23 05:47 Room Air Laboratory Results Abnormal lab results 11/26/23 Range/Units 06:12 RBC 3.49 L (4.20-5.40) M/uL Hgb 11.4 L (12.0-16.0) g/dl Hct 33.1 L (37.0-47.0) % RDW Std Deviation 49.0 H (36.4-46.3) fL BUN 33 H (6-23) mg/dl BUN/Creatinine Ratio 35.9 H (10-20) Glucose 162 H (70-99(Fasting)) mg/dl (8) CAD (coronary artery disease) Coronary Disease-Associated Artery/Lesion type: [place] artery [place] vs. transplanted heart: [place] heart Associated angina: without angina Qualified Code(s): I25.10 - Atherosclerotic heart disease of [place] coronary artery without angina pectoris
[2023-11-27 06:58] LABS: Hematocrit (blood only) 33.6 % (37.0-47.0); Mean Corpuscular Hemoglobin 31.8 pg (25.0-34.0); Mean Corpuscular Hgb Conc 32.7 g/dL (32.0-36.0); Mean Corpuscular Volume 97.1 fL (80.0-100.0); Platelet Count 276 K/uL (130-400); RDW Coefficient of Variation 14.1 % (11.5-14.5); RDW Standard Deviation 49.9 fL (36.4-46.3); Red Blood Count 3.46 M/uL (4.20-5.40); White Blood Count 7.73 K/ul (4.8-10.8)
[2023-11-27 07:05] LABS: BUN Creatinine Ratio 33.3 (10-20); Calcium 9.1 mg/dl (8.6-10.3); Creatinine Clr Calc Pharmacy 38.2 ml/min; Est GFR (African American) 59.4 ml/min; Est GFR (Non-African American) 51.2 ml/min; Potassium 4.6 mmol/L (3.5-5.1)
[2023-11-27] MEDS: dexAMETHasone 4 MG TAB PO SCH (11:30)
[2023-11-27 11:39] VITALS: PULSE 63; RESP 18; TEMP 97.6; O2SAT 97
--- NOTE | 2023-11-27 11:56 | Discharge Summary ---
Date of Service November 27, 2023 Admission HPI Per Admitting Provider Patient is 88-year-old female with PMH CAD s/p stent, HTN, dyslipidemia, paroxysmal SVT, RA, CKD III, GERD, chronic back and extremity pain and others listed below presented to ER with complaint of leg weakness. History obtained from patient, patient's , son at bedside as well as outpatient chart review. States at baseline patient has lift chair to get her up and then can ambulate with use of a walker. She reports chronic mid to lower back pain. Reports chronic bilateral lower extremity pain. States has chronic erythema and ecchymosis to bilateral lower legs. Has caregiver and home. Reports yesterday seem to be in normal health. Last evening had some nausea and dry heaves. Denies any vomiting. Reports last evening with increased right lower extremity pain and was unable to ambulate without assistance. She reports she had to go to the bathroom has been got her there with a lot of difficulty. States with the prolonged attempt to get her to the bathroom when she sat down to urinate sh e also had a bowel movement denies any noted melena or hematochezia or watery stool. Patient had not noted any abdominal pain, fevers or chills. States has bowel stimulator in place to "prevent loss control of bowels". was able to get her in bed last night and this morning was unable to get her up to ambulate as she complaint was unable to move her legs and her legs were weak. Patient states chronic bilateral foot pain as well. She reports increased right lower extremity paresthesias and pain today. Family note patient seems more drowsy today than baseline. Denies fever/chills, diaphoresis, BUTT, dizziness, syncope, vision changes, neck pain, CP, SOB, orthopnea, palpitations, cough, sore throat, choking, otalgia, rhinorrhea, extremity edema, rashes, dysuria, hematuria, urinary frequency. echo: EF: 60-64%, normal LV wall motion, grade 1 diastolic dysfunction, mild TR 08/31/2021 MRI L-spine: Postsurgical changes posterior lumbar osteotomy and posterior lumbar fusion L2-L4, small fluid collection at L3 operative site. Multilevel vertebral body compression fracture lower thoracic and lumbar spine. Multilevel degenerative changes in the thoracolumbar spine with superimposed compression fracture deformity and retropulsion contributing to varying degrees of spinal canal and bilateral neuroforaminal narrowing, left greater than right 10/03/2021 MRI T-spine: Stable compression deformities T12 and L1. Moderate- severe thecal sac stenosis at T12-L1 level, thecal sac stenosis T10-11 associated with disc protrusion and ligamentum flavum redundancy, multilevel foraminal narrowing lower thoracic spine Admission Exam Per Admitting Provider General: no acute distress, WDWN Head: normocephalic, atraumatic Eyes: PERRL, EOM's intact, conjunctiva non-injected, anicteric ENT: normal inspection external ears, nose, mucous membranes dry Neck: supple, trachea midline Lungs: clear, no respiratory distress, no wheezing/rhonchi/rales CV: RRR, no pretibial edema Abd: normal BS, soft, +tenderness to palpation LLQ without rebound or guarding Ext: BLE: bilateral lower legs with dusky redness with scabs, no drainage. +diffuse tenderness to palpation (reports this is chronic pain) Neuro: Drowsy but awake with conversation and fully conversive and oriented x 3, Visual medina intact. PERRL, EOMs intact. No nystagmus, face is strong and symmetric, hearing grossly intact, soft palate elevates symmetrically, no dysarthria, shoulder shrug intact, tongue is midline, normal movement, no fasciculations +generalized weakness with needing assistance to sit up in bed, able to actively raise both arms but only holds for couple of seconds and is equal. +Not able to actively lift legs from bed. +chronic foot drop (per )Skin: warm, dry, as above in ext Principal Diagnosis Ambulatory dysfunction Bilateral leg weakness Back pain Left leg cellulitis Acute kidney injury superimposed on CKD Encephalopathy Discharge Exam Constitutional: + well hydrated; no acute distress Eyes: PERRL, conjunctivae normal, anicteric sclerae ENMT: external ear and nose normal, oropharynx normal Respiratory: normal respiratory effort, lungs clear to auscultation Cardiovascular: Rate/Rhythm: regular rate and regular rhythm Gastrointestinal (Abdomen): normal bowel sounds, soft, nontender, no hepatosplenomegaly Musculoskeletal: Some ecchymoses on legs. Mild tenderness on left leg. Edema resolving Rt foot drop Power is improved in both legs Neurologic: PERRL, EOMI, accommodation nl, no face palsy, no dysarthria Psychiatric: A+Ox3, euthymic affect Discharge Data Allergies Allergy/AdvReac Type Severity Reaction Status Date / Time morphine Allergy Severe SHORTNESS Verified 10/11/23 07:11 OF BREATH lisinopril Allergy Intermediate GI SYMPTOMS Verified 10/11/23 07:11 shrimp Allergy Intermediate GI SYMPTOMS Verified 10/11/23 07:11 Sulfa (Sulfonamide Allergy Intermediate HIVES Verified 10/11/23 07:11 Antibiotics) adhesive AdvReac Intermediate TAPE - RASH Verified 10/11/23 07:11 benzonatate AdvReac Mild GI UPSET Verified 10/11/23 07:11 codeine AdvReac Mild NAUSEA Verified 10/11/23 07:11 Consultations 11/22/23 12:20 ED Decision to Admit Stat 11/23/23 14:38 Consult Orthopedic Spine Surgery Routine 11/25/23 12:42 Consult Cardiology Routine Ordered Studies 11/22/23 10:13 CT cervical spine wo con Stat CT head/brain wo con Stat CT lumbar spine wo con Stat 11/22/23 13:30 CT abd pelvis wo con Urgent 11/23/23 09:00 MRI Lumbar Spine [MR lumbar spine wo/w con] Stat MRI Thoracic [MR thoracic spine wo/w con] Stat US venous doppler LE Urgent Hospital Course (1) Ambulatory dysfunction: (2) Bilateral leg weakness: (3) Back pain: Per prior attending w/ addendum: 88-year-old female with PMH CAD s/p stent, HTN, dyslipidemia, paroxysmal SVT, RA, CKD III, GERD, chronic back and extremity pain, and others listed below presented to ER with complaint of leg weakness and ambulatory dysfunction started night before presentation. Chronic back pain and chronic BLE pain. Uses walker and lift chair at baseline. Presented with increased BLE weakness and unable to ambulate In ER afebrile, vitals stable. On presentation, no significant electrolyte abnormality. Negative influenza, RSV, COVID PCR. CT Head: no acute abnormality CT Lumbar spine: No acute lumbar spine fracture or subluxation. No change in appearance of old thoracolumbar spine fractures since CT of May 08, 2022. Stable postoperative findings following L2-L4 decompression and fusion. Moderate to severe multilevel degenerative disc disease and facet arthrosis within the lumbar spine. Suboptimal evaluation of the central canal given CT technique.. M ild increase in caliber of 4.5 cm infrarenal abdominal aortic aneurysm. MRI Thorax and lumbar noted Multilevel degenerative changes. Broad based disc bulge with moderate canal stenosis at T12-L1, moderate right and severe left neural foraminal stenosis Focal right sided disc bulge at L4-5 with severe canal stenosis, AP diameter of 4mm, severe right and left neural foraminal stenosis Broad based posterior disc bulge is seen with neuroforaminal stenosis Compression deformity of T12 is new from prior exam but appears chronic without edema. The canal and neuroforaminal stenosis at L4-5 is significantly increased from prior exam although finding in the upper lumbar spine are at most minimally progressed. A posterior fluid collection measuring [id number] at surgical site is unchanged On 11/22/23, I discussed MRI findings with Radiologist Dr Ortiz I updated patient and granddaughter about findings on 11/22/23. Power is improving Ortho spine eval noted. Planning for surgery soon after treatment of cellulitis, likely in the next 1-2 weeks Cardiology preop eval recs noted Continue dexamethasone. Change from IV to po dexa Dexamethasone taper : 4mg q6h for another day, then q8h for 3 days, then q12h for 3 days, then daily for 3 days Left leg cellulitis improving Ceftriaxone changed to po keflex Doppler of LLE did not show acute DVT (4) Acute kidney injury superimposed on CKD: BERNADINE on CKD III Cr: 1.4. Baseline Cr: 1.0 Got IVF Cr is 0.92 Home lasix 20mg MWF has been resumed Monitor renal function (5) Encephalopathy: Was reported to be more drowsy on day of admission CT Head: no acute intracranial abnormality Resolved Patient is awake, alert oriented to person,place and time Has great insight (6) Elevated troponin I level: (7) Chronic diastolic (congestive) heart failure: (8) CAD (coronary artery disease): History CAD s/p stent Troponin: 108 -->119-->106. EKG without acute ST elevation CK: 82 Denies CP, SOB Echo showed LV cavity is small, mod conc LVH, normal wall motion, EF 65-70%, Grade I DD, no significant valvular disease Continue aspirin, metoprolol succinate, isosorbide, rosuvastatin (9) Hx of rheumatoid arthritis: Continue Xeljanz (10) Paroxysmal supraventricular tachycardia: Continue metoprolol succinate DVT Prophylaxis Heparin SQ Admit med tele DNR/DNI Follows with Dr Mcnair for routine care Updated and at bedside CM notified me about [facility] was denied and to do peer to peer Peer to peer completed with insurance and Acute rehab approved Plan for possible dc to rehab in AM I spent a total of 50 minutes coordinating, documenting and providing care for this patient excluding time spent in performance of separately billed services Plan Addendum 11/27/2023: Patient was seen and examined at bedside. Patient is hemodynamically stable and would like to be discharged to [facility] today. Patient's son at bedside was also updated on plan of care. Cardiology notes reviewed, patient started on Eliquis 2.5 mg twice daily for DVT prophylaxis, aspirin 81 mg daily for history of CAD. Patient is aware that she needs to follow-up with orthospine upon discharge for ongoing evaluation and possible surgery in the near future. She will be discharged on antibiotic to complete course for LLE cellulitis. She is being discharged to [facility] with following instruction at the point of discharge: Follow-up with your primary care physician within a week time and likely you will need labs CBC/CMP/magnesium/phosphorus. Your evaluated by orthospine while inpatient, there is plan for possible surgery soon after treatment of your lower extremity cellulitis. Follow-up with orthospine in 1 week time upon discharge for ongoing evaluation. You are being discharged on tapering dose of dexamethasone. You will be discharged on antibiotics to complete the treatment for left leg cellulitis Since you have ambulatory dysfunction secondary to back pain, you have high risks of blood clot. You will be discharged on DVT prophylaxis which needs to be continued until your ambulation improves or until you get surgery. Take your medications as prescribed. Please make sure that you are able to get your medications today by calling your pharmacy before you leave the hospital so that your treatment continuity is not broken. Home Health Attestation I certify that this patient is under my care and that I, or a physicians phys assistant working with me, had a face to-face encounter that meets the home health [id number] encounter requirements with this patient. The encounter with the patient was in whole, or in part, for the following medical condition, which is the primary reason for home health care (list medical condition): I certify that, based on my findings, the following services are medically necessary home health services: My clinical findings support the need for the above services because: Further, I certify that my clinical findings support that this patient is homebound (i.e. absences from home require considerable and taxing effort and are for medical reasons or muslim services or infrequently or of short duration when for other reasons) because: Certification for Home Health Services: Based on the above findings, I certify that this patient is confined to the home and needs intermittent prison care, physical therapy and/or speech therapy or continues to need occupational therapy. The patient is under my care, and I have initiated the establishment of the plan of care. This patient will be followed by a physician who will periodically review the plan of care. Total Time Total Time Spent Total Time Spent (In Minutes): 45 Discharge Plan Discharge Items Patient Disposition: Transfer Inpatient Rehab Fac Reason For Visit: ambulatory dysfunction Discharge Diagnosis: Ambulatory dysfunction Bilateral leg weakness Back pain Left leg cellulitis Acute kidney injury superimposed on CKD Encephalopathy Activity: As commented below Activity Comment: continue with PT/OT at rehab. Non-emergency contact: Primary Care Provider Call non-emergency contact if: you have any medication questions, your symptoms worsen, your pain is not controlled and your temperature is above 101 Follow-up/Referrals: Rancho Shepherd MD [Surgeon] - Candice Mcnair DO [Primary Care Provider] - Diet: Carb Consistent or DM2 Addtl Attending Provider Instructions: Follow-up with your primary care physician within a week time and likely you will need labs CBC/CMP/magnesium/phosphorus. Your evaluated by orthospine while inpatient, there is plan for possible surgery soon after treatment of your lower extremity cellulitis. Follow-up with orthospine in 1 week time upon discharge for ongoing evaluation. You are being discharged on tapering dose of dexamethasone. You will be discharged on antibiotics to complete the treatment for left leg cellulitis Since you have ambulatory dysfunction secondary to back pain, you have high risks of blood clot. You will be discharged on DVT prophylaxis which needs to be continued until your ambulation improves or until you get surgery. Take your medications as prescribed. Please make sure that you are able to get your medications today by calling your pharmacy before you leave the hospital so that your treatment continuity is not broken. Pending Studies at Discharge: Yes Stand-Alone Forms: My [employer] Skilled Items Patient informed of condition?: Yes DNR: Yes Discharge Level of Care: Acute rehab Communicable Disease: No Discharge Prognosis: Stable Lines: None Urinary Catheter: No Medications and DC Order Prescriptions: New cephalexin 500 mg Capsule 500 mg PO QID 7 Days Qty: 28 0RF Eliquis 2.5 mg tablet 2.5 mg PO BID Qty: 60 0RF dexamethasone 4 mg Tablet 4 mg PO UD Qty: 18 0RF Rx Instructions: 4 mg Q8H for 3 days, then 4 mg Q12H for 3 days, then 4 mg q24H for 3 days and stop. Continued clonazepam 0.5 mg tablet 0.5 mg PO HS PRN (Reason: Insomnia) rosuvastatin [Crestor] 40 mg tablet 40 mg PO DAILY famotidine 20 mg tablet 20 mg PO HS furosemide 20 mg tablet 20 mg PO UD Rx Instructions: 3 days per week; sat, sat, sat melatonin 5 mg capsule 5 mg PO HS PRN (Reason: Sleep) Xeljanz XR 11 mg tablet extended release 24 hr 11 mg PO QAM ascorbic acid (vitamin C) 500 mg capsule 500 mg PO QAM tramadol 50 mg tablet 50 mg PO BID PRN (Reason: pain) Qty: 40 0RF metoprolol succinate 25 mg tablet extended release 24 hr 25 mg PO BID buprenorphine [Butrans] 15 mcg/hour patch weekly 1 patch transdermal Q7D Qty: 4 0RF gabapentin 300 mg capsule 300 mg PO BID isosorbide mononitrate 30 mg tablet extended release 24 hr 30 mg PO QAM amoxicillin 500 mg capsule 2,000 mg PO UD PRN (Reason: Prophylaxis) Rx Instructions: take 4 capsules 1 hour prior to dental appointments calcium carbonate-vitamin D3 [Calcium 500 + D (D3)] 500 mg-3.125 mcg (125 unit) Tablet 1 tab PO DAILY iVizia (PF) 0.5 % Drops 2 drp OPHTHALMIC (EYE) BID Changed aspirin [Adult Low Dose Aspirin] 81 mg tablet,delayed release (DR/EC) 81 mg PO DAILY Qty: 30 0RF Patient Comments: called pt on the phone Rx Instructions: TAKES MON, SAT & SAT. Discharge Orders: Discharge Order (Routine); Ordered 11/27/23 Ordered By: Cyndi Charles Admission Data Admit Date/Time: 11/22/23 12:31 Attending Provider: Cyndi Charles Admit Provider: Raghva Villela Primary Care Provider: Candice Mcnair Other Providers: Raghav Villela; Rancho Shepherd; [facility]; Medardo Schwab
[2023-11-27 12:04] VITALS: BP 160/70
== END 2023-11-27 12:56 | DRG 552 ==
LOC: ED 09:48 → SUATTDRO 12:31 → 2N 12:31 → 2E 11-23 13:15
DX: I47.20 Ventricular tachycardia, unspecified; Z79.82 Long term (current) use of aspirin; I25.10 Atherosclerotic heart disease of native coronary artery without angina pectoris; Z95.5 Presence of coronary angioplasty implant and graft; M06.9 Rheumatoid arthritis, unspecified; Z88.2 Allergy status to sulfonamides; R26.2 Difficulty in walking, not elsewhere classified; I13.0 Hypertensive heart and chronic kidney disease with heart failure and stage 1 through stage 4 chronic kidney disease, or unspecified chronic kidney disease; Z66 Do not resuscitate; G93.40 Encephalopathy, unspecified; N17.9 Acute kidney failure, unspecified; L03.116 Cellulitis of left lower limb; M48.54XA Collapsed vertebra, not elsewhere classified, thoracic region, initial encounter for fracture; E86.0 Dehydration; N18.30 Chronic kidney disease, stage 3 unspecified; D84.9 Immunodeficiency, unspecified; R79.89 Other specified abnormal findings of blood chemistry; G62.9 Polyneuropathy, unspecified; Z98.1 Arthrodesis status; M48.05 Spinal stenosis, thoracolumbar region; M48.061 Spinal stenosis, lumbar region without neurogenic claudication; M51.36 Other intervertebral disc degeneration, lumbar region; Z87.891 Personal history of nicotine dependence; Z88.5 Allergy status to narcotic agent; I50.32 Chronic diastolic (congestive) heart failure; I71.40 Abdominal aortic aneurysm, without rupture, unspecified

== ENCOUNTER 2024-01-01 09:47 | Inpatient (IN) ==
--- NOTE | 2024-01-01 12:17 | CT Scan Report ---
CT OF THE LUMBAR SPINE CLINICAL HISTORY: R> L LE weakness COMPARISON STUDY: Lumbar spine CT November 22, 2023. Lumbar spine MRI November 23, 2023. TECHNIQUE: Helical axial images of the lumbar spine were obtained. Sagittal and coronal reconstruct ions were viewed. Automated exposure control was utilized for the study. A dose lowering technique was utilized adhering to the principles of ALARA. FINDINGS: A 4.5 cm infrarenal abdominal aortic aneurysm is unchanged in appearance since CT of Septem 2023. Multiple old lower thoracic and lumbar spine compression fractures are unchanged. For p urposes of numbering on this exam, the L5-S1 disc space is assigned to axial image 313 of 365. There are postoperative findings consistent with L2-L4 decompression and pedicle screw fusion. The postoper ative appearance is unchanged. No acute lumbar spine fractures are identified. There are no osseous l esions. Moderate to severe multilevel degenerative disc disease and facet arthrosis is noted. Central canal and neural foramen are suboptimally assessed given CT technique. IMPRESSION: 1. No acute lumbar spine fracture or subluxation. 2. No change in appearance of old thoracolumbar spine fracture since CT of November 22, 2023. 3. Stable postoperative findings following L2-L4 decompression and fusion. 4. Moderate to severe multilevel degenerative disc disease and facet arthrosis within the lumbar spin e. Suboptimal evaluation of the central canal and neural foramen given CT technique. 5. 4.5 cm infrarenal abdominal aortic aneurysm, unchanged since prior CT. ACT 112: Negative or not required by law. Electronically signed by: Freddy Rivera M.D. 01/01/2024 12:16 PM
[2024-01-01] MEDS: HYDROCODONE/ACETAMOPHEN 5/325MG TAB PO STA (12:28)
[2024-01-01] MEDS: ONDANSETRON 4 MG OD TAB PO STA (12:29)
[2024-01-01 13:59] LABS: Basophils # (auto) 0.03 K/uL (0.00-0.20); Basophils % (auto) 0.2 %; Eosinophils # (auto) 0.01 K/uL (0.00-0.50); Eosinophils % (auto) 0.1 %; Hematocrit (blood only) 31.1 % (37.0-47.0); Hemoglobin 10.2 g/dl (12.0-16.0); Immature Granulocytes % (auto) 4.1 %; Lymphocytes # (auto) 0.88 K/uL (1.20-3.40); Lymphocytes % (auto) 5.2 %; Mean Corpuscular Hemoglobin 32.7 pg (25.0-34.0); Mean Corpuscular Hgb Conc 32.8 g/dL (32.0-36.0); Mean Corpuscular Volume 99.7 fL (80.0-100.0); Mean Platelet Volume 9.9 fL (9.4-12.4); Monocytes # (auto) 1.33 K/uL (0.11-0.59); Monocytes % (auto) 7.8 %; Neutrophils # (auto) 14.07 K/uL (1.40-6.50); Neutrophils % (auto) 82.6 %; Nucleated RBC # (auto) 0.03 K/uL (0.00-0.12); Nucleated RBC % (auto) 0.2 %; Platelet Count 274 K/uL (130-400); RDW Standard Deviation 55.1 fL (36.4-46.3); Red Blood Count 3.12 M/uL (4.20-5.40); White Blood Count 17.02 K/ul (4.8-10.8)
--- NOTE | 2024-01-01 14:03 | History & Physical Report ---
Date of Service January 01, 2024 Assessment & Plan (1) Ambulatory dysfunction: (2) Weakness: (3) Back pain: (4) CAD (coronary artery disease): (5) Chronic diastolic (congestive) heart failure: (6) Paroxysmal supraventricular tachycardia: (7) Rheumatoid arthritis: Plan: #Chronic Back pain #RLE weakness #Ambulatory Dysfunction #DDD Chronic back pain and chronic BLE pain. Uses walker and lift chair at baseline. Now with increased RLE weakness and unable to ambulate today In ER afebrile, vitals stable. CT Lumbar spine: No acute lumbar spine fracture or subluxation.No change in appearance of old thoracolumbar spine fracture since CT of November 22, 2023. Stable postoperative findings following L2-L4 decompression and fusion. Moderate to severe multilevel degenerative disc disease and facet arthrosis within the lumbar spine. Suboptimal evaluation of the central canal and neural foramen given CT technique. Fall precautions Will continue home Butrans patch Scheduled Tylenol Finished steroid taper 2 days ago. Will hold on further steroids at this time pending ortho spine recommendations PT/OT eval Ortho spine consult, Dr Shepherd as is established and was tentative plan for upcoming procedure #Leukocytosis WBC: 17 UA pending. Pt denies any urinary symptoms. Denies fever/chills, N/V/D, cough, SOB Possible reactive secondary to steroid use CBC in am #CKD III Cr: 0.86. Baseline Cr: 1.0 Monitor renal functions #CAD History CAD s/p stent Denies CP, SOB Continue aspirin, metoprolol succinate, isosorbide, rosuvastatin #Chronic diastolic (congestive) heart failure: Appears hypovolemic currently Plan to continue home Lasix three times a week #Hx of rheumatoid arthritis: Continue Xeljanz #Paroxysmal supraventricular tachycardia: Continue metoprolol succinate #AAA: #Carotid stenosis CT Lumbar spine: 4.5 cm infrarenal abdominal aortic aneurysm, unchanged since prior CT Prior CTA neck with severe stenosis at left ICA bifurcation 80-90% stenosis of distal L CCA and proximal left ICA and ECA. Followed up with [facility] [place], Dr Newberry on 12/25/2023 for carotid stenosis and AAA, per note they felt her recent hallucination/confusion event was not related to her carotid disease and there was consideration for AAA repair, however it is reported patient was not interested in considering until her back pain and possible back surgery is addressed. DVT Prophylaxis Heparin SQ Admit med tele DNR/DNI as per discussion with pt Follows with Dr Mcnair for routine care Pt was seen and care coordinated with Dr Mcdonald. See addendum I spent a total of 77 minutes reviewing notes, outpatient records, labs, medi cation, coordinating, documenting and providing care for this patient excluding time spent in the performance of separately billed services. History of Present Illness Chief Complaint: back pain, weakness Primary Care Provider: Candice Mcnair DO Patient is 88-year-old female with PMH CAD s/p stent, HTN, dyslipidemia, paroxysmal SVT, RA, CKD III, GERD, chronic back and extremity pain and others listed below presented to ER with complaint of right leg weakness today. History obtained from patient, patient's , son at bedside as well as outpatient chart review. States at baseline patient has lift chair to get her up and then can ambulate with use of a walker. She reports chronic mid to lower back pain that waxes and wanes in intensity. Reports chronic bilateral lower extremity pain and intermittent lower extremity numbness that varies from RLE to LLE. On chronic buprenorphine patch. States today woke up and had mid to lower back pain and had noted numbness sensation from below right knee to her right foot. Had difficulty ambulating secondary to this. This morning was on toilet and was unable to get up off toilet secondary to right leg weakness so came to ER. Patient with recent hospitalization 11/22/2023-11/27/2023 for back pain, bilateral leg weakness, ambulatory dysfunction and had MRI thoracic and lumbar spine showing bulging disc, stenosis. Was seen by ortho spine, Dr. Kaplan. Treated with dexamethasone. Was treated for left lower extremity cellulitis on Rocephin which was changed to Keflex. Reports resolution of cellulitis. LLE doppler was negative for DVT She finished an additional prednisone taper 2 days ago. She was discharged to [facility] for rehab and has since been at home and completing PT. She reports prior to today was doing well and was able to ambulate. Denies fever/chills, d iaphoresis, N/V/D/C, BUTT, dizziness, syncope, vision changes, neck pain, CP, SOB, orthopnea, palpitations, cough, sore throat, choking, otalgia, rhinorrhea, abdominal pain, paresthesias, extremity edema, rashes, dysuria, hematuria, urinary frequency, saddle paresthesias or loss control of bowel or bladder. Per chart review patient seen at [facility] ER 12/20/2023 for episode of hallucinations. CT head at that time was negative. CTA neck showed severe stenosis at left ICA bifurcation 80-90% stenosis of distal L CCA and proximal left ICA and ECA. Patient chose to be discharged home at that time. Per outpatient notes Followed up with [facility] [place], Dr Newberry on 12/25/2023 for carotid stenosis and AAA, per note they felt her recent hallucination/confusion event was not related to her carotid disease .Consideration for AAA repair was discussed however it is reported patient was not interested in considering until her back pain and possible back surgery is addressed. Allergies Allergy/AdvReac Type Severity Reaction Status Date / Time morphine Allergy Severe Anaphylaxis Verified 01/01/24 15:33 hydroxychloroquine Allergy Intermediate Rash Verified 12/30/23 13:52 lisinopril Allergy Intermediate GI Verified 01/01/24 15:33 symptoms, cough shrimp Allergy Intermediate GI symptoms Verified 12/30/23 13:52 Sulfa (Sulfonamide Allergy Intermediate HIVES Verified 12/30/23 13:52 Antibiotics) pregabalin [From Lyrica] AdvReac Severe Edema Verified 12/30/23 13:52 adhesive AdvReac Intermediate Tape- rash Verified 12/30/23 13:52 benzonatate AdvReac Mild GI upset Verified 12/30/23 13:52 codeine AdvReac Mild Nausea Verified 12/30/23 13:52 Home Medications Medication Instructions Recorded Confirmed Type rosuvastatin 40 mg tablet (Crestor) 40 mg PO HS 11/14/17 01/01/24 History gabapentin 300 mg capsule 300 mg PO BID 12/25/18 01/01/24 History famotidine 20 mg tablet 20 mg PO HS Acid Reflux 05/29/21 01/01/24 History amoxicillin 500 mg capsule 2,000 mg PO UD PRN Prophylaxis 06/22/21 01/01/24 History isosorbide mononitrate 30 mg 30 mg PO QAM 04/19/22 01/01/24 History tablet,extended release 24 hr tofacitinib 11 mg tablet,extended 11 mg PO QAM 04/19/22 01/01/24 History release 24 hr (Xeljanz XR) metoprolol succinate 25 mg 25 mg PO BID 07/10/23 01/01/24 History tablet,extended release 24 hr calcium 500 mg (as 1 tab PO DAILY 11/22/23 01/01/24 History carbonate)-vitamin D3 3.125 mcg (125 unit) tablet povidone (PF) 0.5 % eye drops 2 drp ophthalmic (eye) BID 11/22/23 01/01/24 History (iVizia (PF)) ascorbate calcium (vitamin C) 500 500 mg PO DAILY 12/16/23 01/01/24 History mg tablet buprenorphine 10 mcg/hour weekly 1 patch transdermal Q7D 12/16/23 01/01/24 History transdermal patch cholecalciferol (vitamin D3) 25 25 mcg PO DAILY 12/16/23 01/01/24 History mcg (1,000 unit) capsule dicyclomine 10 mg capsule 10 mg PO BID 12/16/23 01/01/24 History furosemide 20 mg tablet 20 mg PO MOWEFR 12/16/23 01/01/24 History melatonin 5 mg capsule 5 mg PO HS PRN Sleep 12/16/23 01/01/24 History polyethylene glycol 3350 17 gram 17 g PO DAILY 12/16/23 01/01/24 History oral powder packet (Miralax) triamcinolone acetonide 0.1 % 1 applic topical BID PRN Rash 12/16/23 01/01/24 History topical cream vit C-vit [id number] capsule 1 cap PO DAILY 12/16/23 01/01/24 History aspirin 81 mg tablet,delayed 81 mg PO MOWEFR 01/01/24 01/01/24 History release (Adult Low Dose Aspirin) Past Med/Surg History Problem List (Updated 01/01/24 @ 15:26 by Bhumi Patel PA-C) Confusion (Acute) 12/20/23 Abnormal ankle brachial index (DOROTHEA) (Acute) ISTAP type 3 skin tear of right hand (Acute) 12/16/23 Traumatic open wound of left lower leg with delayed healing (Acute) 12/16/23 Low back pain radiating to right lower extremity Lumbar radiculopathy, right Degenerative lumbar spinal stenosis AAA (abdominal aortic aneurysm) without rupture Cellulitis of lower extremity 11/25/23 Encephalopathy 11/22/23 Back pain Paroxysmal supraventricular tachycardia Chronic diastolic (congestive) heart failure Acute kidney injury superimposed on CKD 11/22/23 Ambulatory dysfunction Elevated troponin I level (Acute) 11/22/23 BERNADINE (acute kidney injury) (Acute) 11/22/23 Bilateral leg weakness (Acute) 11/22/23 Hypertension Hx of rheumatoid arthritis CAD (coronary artery disease) f/u zachary bergeron Hematoma of right lower leg (Acute) 07/18/23 Greater trochanteric pain syndrome Opioid dependence Greater trochanteric bursitis of left hip Rotator cuff arthropathy of left shoulder Mechanical low back pain Medication monitoring encounter Acquired foot deformity Laceration of right knee (Acute) 08/16/21 Pressure ulcer of toe of left foot, stage 4 07/12/21 T12 compression fracture Fever (Acute) 06/23/21 Weakness (Acute) 06/23/21 Lower extremity edema (Chronic) 06/21/21 Acquired hammer toe (Chronic) Neuropathy (Chronic) Stage IV pressure ulcer (Acute) 05/29/21 Pes anserine bursitis Status post right knee replacement Traumatic open wound of right lower leg (Acute) 02/21/21 Immunosuppression due to chronic steroid use Traumatic open wound of right lower leg with delayed healing (Acute) 12/15/20 Laceration of elbow, left (Acute) 11/23/20 Dehydration (Acute) 10/27/20 Pneumonia due to 2019 novel coronavirus (Acute) 10/27/20 Acute respiratory failure with hypoxemia (Acute) 10/27/20 Acute respiratory failure with hypoxia 10/27/20 Multifocal pneumonia 10/27/20 Rheumatoid arthritis (Acute) SARS-CoV-2 positive (Acute) 10/17/20 Weakness (Acute) 10/17/20 Fall 10/17/20 Bilateral knee pain History of total right knee replacement Postural imbalance 08/22/20 Entrapment neuropathy of peripheral nerve of lower extremity Venous insufficiency of both lower extremities (Chronic) Traumatic open wound of right lower leg (Acute) 04/12/20 Pes anserinus tendonitis of right lower extremity Left knee DJD Traumatic wound (Acute) 11/11/19 Left knee pain (Chronic) Postoperative seroma (Chronic) L2-4 Lumbar postlaminectomy syndrome (Chronic) Acquired right foot 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 Lumbar compression fracture (Chronic) L1 acute on chronic MRI 03/[address] 10/17/2020 Pes anserine bursitis Right knee pain Degenerative joint disease of knee Myofascial pain (Chronic) Sacroiliitis (Chronic) 11/20/18 Cervical radiculopathy (Chronic) Greater trochanteric bursitis (Chronic) Lumbago (Chronic) Lumbar radiculitis (Chronic) Peripheral neuropathy (Chronic) Facet syndrome, lumbar (Chronic) CAD (coronary artery disease) (Chronic) Osteoarthritis (Chronic) Myocardial infarct, 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 This results in 80-90% stenosis of the distal left common carotid artery and the proximal left internal and external carotid arteries Sacral neurostimulator in situ instructed to bring remote dos Hx of supraventricular tachycardia follows with [facility] AAA (abdominal aortic aneurysm) Abdomen/Pelvis CT 11/2023: Stable Right infrarenal aortic aneurysm measures 44 mm GERD (gastroesophageal reflux disease) Hx of migraines Hx of myocardial infarction (~2008) Lumbar spinal stenosis Postlaminectomy syndrome, lumbar region no current issues Dyslipidemia History of COVID-19 2020- [facility] admission with acute respiratory failure > no residual effects Neuropathy in both legs, rt>lt Right knee pain Status post TKA taking shots due to bursitis (no shots for at least 3 months) Surgical History Hx of toe surgery Bilateral Feet Second and Third Digit Flexor Tenotomy(Bilateral) Hx of colonoscopy Hx of heart artery stent ~2008, [facility], x1 stent, 2/2 [place] ~2011, [facility], x1 stent, 2/2 heart symptoms; f/u ember salty Hx of cardiac cath ~2008, [facility], x1 stent, 2/2 MA ~2011, [facility], x1 stent, 2/2 heart symptoms; f/u zachary bergeron History of total shoulder replacement Right History of loop recorder no longer working > follows with Dr Bergeron S/P total knee arthroplasty Right History of lumbosacral spine surgery 50+ years for first one, 2nd one 2014, both lower back; flexible rainer and does lesi History of PTCA Remote hx "years ago" History of hysterectomy History of breast biopsy History of tonsillectomy History of adenoidectomy History of angioplasty Family History Father Myocardial infarction Brother Myocardial infarction Other Family history non-contributory Denies family history of Ovarian cancer Prostate cancer Breast cancer Colorectal cancer Social History Smoking Status: Former smoker Tobacco Type: Cigarettes Second Hand Exposure: No; Do You Dip or Chew Tobacco: No; Hx Alcohol Use: Yes Alcohol type: wine Alcohol type Comment: In the evenings. Alcohol Intake Frequency: 4 or More x per/Week Hx Substance Use: No Preferred Language: Azeri Communication Ability: Effective Visual Impairment: Limited Hearing Ability: Normal Yolk Spray Drier Required: No Beliefs That Will Affect Care: None marital status: Current Living Situation: Spouse current occupational status: retired How many Children do You have: 7 Feels Safe at Home: Yes Diet: regular caffeine: No during the past year weight has: remained stable Assistive Devices: Glasses and Walker Review of Systems Review of Systems: All systems reviewed & are unremarkable except as noted in HPI & below Physical Exam Physical Exam: General: no acute distress, WDWN Head: normocephalic, atraumatic Eyes: PERRL, EOM's intact, conjunctiva non-injected, anicteric ENT: normal inspection external ears, nose, mucous membranes dry Neck: supple, trachea midline Lungs: clear, no respiratory distress, no wheezing/rhonchi/rales CV: RRR, no pretibial edema Abd: normal BS, soft, non-tender to palpation Ext: BLE: bilateral lower legs with dusky redness with scabs, no drainage. +diffuse tenderness to palpation (reports this is chronic pain) Neuro: A&O x 3, Able to actively raise left leg to approx 35 degrees, able to actively raise right leg to approx 20 degrees, +chronic foot drop (per ). no other focal deficits noted, normal affect Skin: warm, dry, as above in ext Results & Data Results & Data Vital Signs (Past 12 Hours) Vital Signs Temp Pulse Pulse Resp BP BP Pulse Ox 01/01/24 12:00 85 17 116/78 93 01/01/24 10:29 91 H 01/01/24 10:01 37.0 C 89 17 112/72 91 01/01/24 10:01 37.0 C 89 18 112/72 91 O2 Del Method 01/01/24 12:00 Room Air 01/01/24 10:29 01/01/24 10:01 Room Air 01/01/24 10:01 Room Air Laboratory Results Short CBC 01/01/24 Range/Units 13:23 WBC 17.02 H (4.8-10.8) K/ul Hgb 10.2 L (12.0-16.0) g/dl Hct 31.1 L (37.0-47.0) % Plt Count 274 (130-400) K/uL BMP 01/01/24 13:23 Sodium 138 Potassium 4.0 Chloride 103 Carbon Dioxide 29 BUN 25 H Creatinine 0.86 Glucose 135 H Calcium 8.8 Liver Function 01/01/24 Range/Units 13:23 Total Bilirubin 0.9 (0.2-1.0) mg/dl AST 21 (13-39) U/L ALT 12 (7-52) U/L Alkaline Phosphatase 51 (34-104) U/L Albumin 3.4 (3.4-5.0) gm/dl Diagnostic Findings Lumbar Spine CT 01/01/24 10:57 CT OF THE LUMBAR SPINE CLINICAL HISTORY: R> L LE weakness COMPARISON STUDY: Lumbar spine CT November 22, 2023. Lumbar spine MRI November 23, 2023. TECHNIQUE: Helical axial images of the lumbar spine were obtained. Sagittal and coronal reconstructions were viewed. Automated exposure control was utilized for the study. A dose lowering technique was utilized adhering to the principles of ALARA. FINDINGS: A 4.5 cm infrarenal abdominal aortic aneurysm is unchanged in appearance since CT of November 22, 2023. Multiple old lower thoracic and lumbar spine compression fractures are unchanged. For purposes of numbering on this exam, the L5-S1 disc space is assigned to axial image 313 of 365. There are postoperative findings consistent with L2-L4 decompression and pedicle screw fusion. The postoperative appearance is unchanged. No acute lumbar spine fractures are identified. There are no osseous lesions. Moderate to severe multilevel degenerative disc disease and facet arthrosis is noted. Central canal and neural foramen are suboptimally assessed given CT technique. IMPRESSION: 1. No acute lumbar spine fracture or subluxation. 2. No change in appearance of old thoracolumbar spine fracture since CT of November 22, 2023. 3. Stable postoperative findings following L2-L4 decompression and fusion. 4. Moderate to severe multilevel degenerative disc disease and facet arthrosis within the lumbar spine. Suboptimal evaluation of the central canal and neural foramen given CT technique. 5. 4.5 cm infrarenal abdominal aortic aneurysm, unchanged since prior CT. ACT 112: Negative or not required by law. Electronically signed by: Freddy Rivera M.D. 01/01/2024 12:16 PM Supervising Physician Co-Signing Physician Notes Attending addendum The patient was seen and examined in emergency room in presence of the son She has been complaining of back pain with radiation to right leg and extreme weakness of the right leg since this morning Denies any problem with urine or bowel habit Denies any other significant symptoms on examination Lying in bed without any acute distress Remains hemodynamically stable with blood pressure on the lower side at 98/48 Chestclear to auscultate bilaterally HeartS1-S2, regular Abdomenbenign Extremitieschronic skin changes lower legs without any edema Decreased sensation in the right lower extremity with weakness and a straight leg raising was positive for radiculopathic pain initiated in the back Her admission labs, imaging studies and EKG reviewed History of chronic back pain and now coming in with acute back pain with radiculopathy and weakness involving the right lower extremity Orthospine has been consulted and await their input and recommendation Agree with assessment and plan as outlined above by Riya Olson PA-C and take the full responsibility of the care in the hospital DR Jose Miguel Mcdonald (7) Rheumatoid arthritis Rheumatoid arthritis location: unspecified site Rheumatoid factor presence: unspecified presence Qualified Code(s): M06.9 - Rheumatoid arthritis, unspecified
[2024-01-01 14:16] LABS: Albumin Globulin Ratio 1.3 (0.9-2); Albumin Level 3.4 gm/dl (3.4-5.0); BUN Creatinine Ratio 29.1 (10-20); Bilirubin,Total 0.9 mg/dl (0.2-1.0); Calcium 8.8 mg/dl (8.6-10.3); Creatinine Clr Calc Pharmacy 44.8 ml/min; Globulin 2.7 gm/dl (2.5-4.0); Total Protein 6.1 gm/dl (6.0-8.3)
--- NOTE | 2024-01-01 15:28 | Emergency Department Note ---
Impression & Plan DDD (degenerative disc disease), lumbar, Ambulatory dysfunction, Weakness ED Provider Note CHIEF COMPLAINT: Back pain HISTORY OF PRESENT ILLNESS: This 88-year-old female patient past medical history of congestive heart failure, degenerative lumbar disc disease, compression fracture, spinal stenosis, sepsis, skin tears and difficulty with wound healing, AAA, encephalopathy, supraventricular tachycardia, chronic kidney disease, rheumatoid arthritis, CAD, pressure wounds, presents to the emergency department with complaints of intractable back pain and weakness. The patient was unable to get up off of the toilet this morning. She is complaining of some numbness and pain in the right lower extremity. She states this is not unusual however typically the symptoms are in both lower extremities. She does feel weaker than usual. The patient has had no fever or recent fall. She lives at home with her and has a caregiver coming daily. She is set to have surgery the first week of January on her back with Dr. Shepherd. The patient did take Tylenol and tramadol prior to arrival. REVIEW OF SYSTEMS: A review of systems was performed with positives and pertinent negatives listed in the history of present illness. 10 systems were reviewed and are otherwise negative. ALLERGIES: see below MEDICATIONS: see below PMH: see below SOCIAL HISTORY: see below DDx: Acute on chronic lumbar radiculopathy, compression fracture, spinal hematoma, muscular strain, UTI, dehydration, electrolyte abnormality among others. PHYSICAL EXAM: Vital signs reviewed. General: Chronically ill-appearing 88-year-old female, thin and frail, in no significant distress. HEENT: No scleral icterus, PERRLA, neck supple. Atraumatic. Cardiovascular: Regular rate and rhythm, no extra sounds. Pulmonary: Clear to auscultation bilaterally, normal work of breathing. Abdomen: Soft, nontender, nondistended, positive bowel sounds. Musculoskeletal: Atraumatic, no peripheral edema. Skin changes as below. Some tenderness to palpation over the lumbar spine with degenerative change noted. Neurologic: Patient awake and answering questions appropriately, falls asleep quickly. Speech is clear. 4/5 strength in the bilateral lower extremities to straight leg raise. Skin: Warm, dry, significant evidence of previous trauma with scars, ecchymosis/venous stasis. EMERGENCY DEPARTMENT COURSE/MDM: This patient was evaluated and appeared to be in some discomfort. Patient denied the need for additional pain medication as she had taken tramadol prior to arrival. CT imaging of the lumbar spine was performed and reveals no evidence of acute fracture however significant multilevel degenerative disc disease and facet arthrosis is noted. No significant change from previous which was performed November 22, 2023. Patient is noted to have an elevated WBC however has recently completed a course of steroids. The patient's son arrived at the bedside and discussed the situation at home. Patient lives with her 89-year-old and has several hours of a caregiver however they are unable to care for the patient safely. IV access was obtained and laboratory work was drawn. Urinalysis was ordered. Patient was discussed with Dr. Kaufman of the hospitalist service who will evaluate the patient for admission and further management. MONITORING: An order for cardiac monitoring was placed and the patient is noted to be in a normal sinus rhythm at 75 beats per minute. RADIOLOGY: Lumbar spine CT: IMPRESSION: 1. No acute lumbar spine fracture or subluxation. 2. No change in appearance of old thoracolumbar spine fracture since CT of November 22, 2023. 3. Stable postoperative findings following L2-L4 decompression and fusion. 4. Moderate to severe multilevel degenerative disc disease and facet arthrosis within the lumbar spine. Suboptimal evaluation of the central canal and neural foramen given CT technique. 5. 4.5 cm infrarenal abdominal aortic aneurysm, unchanged since prior CT. DISPOSITION: Admission Past Med/Surg History Problem List (Updated 01/03/24 @ 07:57 by Nuyr Centeno MD) Weakness (Acute) Ambulatory dysfunction (Acute) DDD (degenerative disc disease), lumbar (Acute) Acute on chronic diastolic congestive heart failure Degenerative disc disease, lumbar Right upper lobe pneumonia Urinary tract infection after period of immobility Acute sepsis Confusion (Acute) 12/20/23 Abnormal ankle brachial index (DOROTHEA) (Acute) ISTAP type 3 skin tear of right hand (Acute) 12/16/23 Traumatic open wound of left lower leg with delayed healing (Acute) 12/16/23 Low back pain radiating to right lower extremity Lumbar radiculopathy, right Degenerative lumbar spinal stenosis AAA (abdominal aortic aneurysm) without rupture Cellulitis of lower extremity 11/25/23 Encephalopathy 11/22/23 Back pain Paroxysmal supraventricular tachycardia Chronic diastolic (congestive) heart failure Acute kidney injury superimposed on CKD 11/22/23 Ambulatory dysfunction Elevated troponin I level (Acute) 11/22/23 BERNADINE (acute kidney injury) (Acute) 11/22/23 Bilateral leg weakness (Acute) 11/22/23 Hypertension Hx of rheumatoid arthritis CAD (coronary artery disease) f/u zachary bergeron Hematoma of right lower leg (Acute) 07/18/23 Greater trochanteric pain syndrome Opioid dependence Greater trochanteric bursitis of left hip Rotator cuff arthropathy of left shoulder Mechanical low back pain Medication monitoring encounter Acquired foot deformity Laceration of right knee (Acute) 08/16/21 Pressure ulcer of toe of left foot, stage 4 07/12/21 T12 compression fracture Fever (Acute) 06/23/21 Weakness (Acute) 06/23/21 Lower extremity edema (Chronic) 06/21/21 Acquired hammer toe (Chronic) Neuropathy (Chronic) Stage IV pressure ulcer (Acute) 05/29/21 Pes anserine bursitis Status post right knee replacement Traumatic open wound of right lower leg (Acute) 02/21/21 Immunosuppression due to chronic steroid use Traumatic open wound of right lower leg with delayed healing (Acute) 12/15/20 Laceration of elbow, left (Acute) 11/23/20 Dehydration (Acute) 10/27/20 Pneumonia due to 2019 novel coronavirus (Acute) 10/27/20 Acute respiratory failure with hypoxemia (Acute) 10/27/20 Acute respiratory failure with hypoxia 10/27/20 Multifocal pneumonia 10/27/20 Rheumatoid arthritis (Acute) SARS-CoV-2 positive (Acute) 10/17/20 Weakness (Acute) 10/17/20 Fall 10/17/20 Bilateral knee pain History of total right knee replacement Postural imbalance 08/22/20 Entrapment neuropathy of peripheral nerve of lower extremity Venous insufficiency of both lower extremities (Chronic) Traumatic open wound of right lower leg (Acute) 04/12/20 Pes anserinus tendonitis of right lower extremity Left knee DJD Traumatic wound (Acute) 11/11/19 Left knee pain (Chronic) Postoperative seroma (Chronic) L2-4 Lumbar postlaminectomy syndrome (Chronic) Acquired right foot 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 Lumbar compression fracture (Chronic) L1 acute on chronic MRI 03/[address] 10/17/2020 Pes anserine bursitis Right knee pain Degenerative joint disease of knee Myofascial pain (Chronic) Sacroiliitis (Chronic) 11/20/18 Cervical radiculopathy (Chronic) Greater trochanteric bursitis (Chronic) Lumbago (Chronic) Lumbar radiculitis (Chronic) Peripheral neuropathy (Chronic) Facet syndrome, lumbar (Chronic) CAD (coronary artery disease) (Chronic) Osteoarthritis (Chronic) Myocardial infarct, 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 This results in 80-90% stenosis of the distal left common carotid artery and the proximal left internal and external carotid arteries Sacral neurostimulator in situ instructed to bring remote dos Hx of supraventricular tachycardia follows with [facility] cardiology AAA (abdominal aortic aneurysm) Abdomen/Pelvis CT 11/2023: Stable Right infrarenal aortic aneurysm measures 44 mm GERD (gastroesophageal reflux disease) Hx of migraines Hx of myocardial infarction (~2008) Lumbar spinal stenosis Postlaminectomy syndrome, lumbar region no current issues Dyslipidemia History of COVID-19 2020- [facility] admission with acute respiratory failure > no residual effects Neuropathy in both legs, rt>lt Right knee pain Status post TKA taking shots due to bursitis (no shots for at least 3 months) Surgical History Hx of toe surgery Bilateral Feet Second and Third Digit Flexor Tenotomy(Bilateral) Hx of colonoscopy Hx of heart artery stent ~2008, [facility], x1 stent, 2/2 [place] ~2011, [facility], x1 stent, 2/2 heart symptoms; f/u ember salty Hx of cardiac cath ~2008, [facility], x1 stent, 2/2 [place] ~2011, [facility], x1 stent, 2/2 heart symptoms; f/u zachary bergeron History of total shoulder replacement Right History of loop recorder no longer working > follows with Dr Bergeron S/P total knee arthroplasty Right History of lumbosacral spine surgery 50+ years for first one, 2nd one 2014, both lower back; flexible rainer and does lesi History of PTCA Remote hx "years ago" History of hysterectomy History of breast biopsy History of tonsillectomy History of adenoidectomy History of angioplasty Family History Father Myocardial infarction Brother Myocardial infarction Other Family history non-contributory Denies family history of Ovarian cancer Prostate cancer Breast cancer Colorectal cancer Social History Smoking Status: Never smoker Tobacco Type: Cigarettes Second Hand Exposure: No; Do You Dip or Chew Tobacco: No; Hx Alcohol Use: No Hx Substance Use: No Preferred Language: Icelandic Communication Ability: Effective Visual Impairment: Limited Hearing Ability: Normal Hr Business Partner Required: No Beliefs That Will Affect Care: None marital status: Current Living Situation: Spouse current occupational status: retired How many Children do You have: 7 Other Information That Helps Us Care for You: No Feels Safe at Home: Yes Diet: regular caffeine: No during the past year weight has: remained stable Assistive Devices: Lift Chair and Walker Allergies Allergies Allergy/AdvReac Type Severity Reaction Status Date / Time morphine Allergy Severe Anaphylaxis Verified 01/01/24 15:33 hydroxychloroquine Allergy Intermediate Rash Verified 12/30/23 13:52 lisinopril Allergy Intermediate GI Verified 01/01/24 15:33 symptoms, cough shrimp Allergy Intermediate GI symptoms Verified 12/30/23 13:52 Sulfa (Sulfonamide Allergy Intermediate HIVES Verified 12/30/23 13:52 Antibiotics) pregabalin [From Lyrica] AdvReac Severe Edema Verified 12/30/23 13:52 adhesive AdvReac Intermediate Tape- rash Verified 12/30/23 13:52 benzonatate AdvReac Mild GI upset Verified 12/30/23 13:52 codeine AdvReac Mild Nausea Verified 12/30/23 13:52 Home Meds Home Medications Medication Instructions Recorded Confirmed rosuvastatin 40 mg tablet (Crestor) 40 mg PO HS 11/14/17 01/01/24 gabapentin 300 mg capsule 300 mg PO BID 12/25/18 01/01/24 famotidine 20 mg tablet 20 mg PO HS Acid Reflux 05/29/21 01/01/24 amoxicillin 500 mg capsule 2,000 mg PO UD PRN Prophylaxis 06/22/21 01/01/24 isosorbide mononitrate 30 mg 30 mg PO QAM 04/19/22 01/01/24 tablet,extended release 24 hr tofacitinib 11 mg tablet,extended 11 mg PO QAM 04/19/22 01/01/24 release 24 hr (Xeljanz XR) metoprolol succinate 25 mg 25 mg PO BID 07/10/23 01/01/24 tablet,extended release 24 hr calcium 500 mg (as 1 tab PO DAILY 11/22/23 01/01/24 carbonate)-vitamin D3 3.125 mcg (125 unit) tablet povidone (PF) 0.5 % eye drops 2 drp ophthalmic (eye) BID 11/22/23 01/01/24 (iVizia (PF)) ascorbate calcium (vitamin C) 500 500 mg PO DAILY 12/16/23 01/01/24 mg tablet buprenorphine 10 mcg/hour weekly 1 patch transdermal Q7D 12/16/23 01/01/24 transdermal patch cholecalciferol (vitamin D3) 25 25 mcg PO DAILY 12/16/23 01/01/24 mcg (1,000 unit) capsule dicyclomine 10 mg capsule 10 mg PO BID 12/16/23 01/01/24 furosemide 20 mg tablet 20 mg PO MOWEFR 12/16/23 01/01/24 melatonin 5 mg capsule 5 mg PO HS PRN Sleep 12/16/23 01/01/24 polyethylene glycol 3350 17 gram 17 g PO DAILY 12/16/23 01/01/24 oral powder packet (Miralax) triamcinolone acetonide 0.1 % 1 applic topical BID PRN Rash 12/16/23 01/01/24 topical cream vit C-vit F-uoelvl-soybcaon capsule 1 cap PO DAILY 12/16/23 01/01/24 aspirin 81 mg tablet,delayed 81 mg PO MOWEFR 01/01/24 01/01/24 release (Adult Low Dose Aspirin) Results & Data (ED) Vital Signs Vital Signs - 24 hr 01/01/24 10:01 01/01/24 10:01 01/01/24 10:29 Temperature 37.0 C 37.0 C Temperature Source Oral Oral Pulse Rate 89 91 H Pulse Rate [Apical] 89 Pulse Rhythm [Apical] Pulse Strength [Apical] Respiratory Rate 18 17 Respiratory Effort / Characteristics Non-Labored Spontaneous Non-Labored Spontaneous Respiratory Depth Normal Normal Blood Pressure 112/72 Blood Pressure [Right Arm] 112/72 Blood Pressure Mean 85 Blood Pressure Mean [Right Arm] 85 Blood Pressure Position Semi-fowlers Blood Pressure Position [Right Arm] Semi-fowlers Pulse Oximetry 91 91 Oxygen Delivery Method Room Air Room Air Sepsis Recent Fever Within 48 Hours No Sepsis New/Unexplained Change in Mental Status N/A Sepsis Action Taken by Nursing No Action Required 01/01/24 12:00 01/01/24 14:00 01/01/24 14:57 Temperature Temperature Source Pulse Rate 68 Pulse Rate [Apical] 85 75 Pulse Rhythm [Apical] Regular Pulse Strength [Apical] Normal Respiratory Rate 17 17 Respiratory Effort / Characteristics Non-Labored Spontaneous Non-Labored Spontaneous Respiratory Depth Normal Normal Blood Pressure Blood Pressure [Right Arm] 116/78 98/48 L Blood Pressure Mean Blood Pressure Mean [Right Arm] 90 64 Blood Pressure Position Blood Pressure Position [Right Arm] Lying Pulse Oximetry 93 93 Oxygen Delivery Method Room Air Room Air Sepsis Recent Fever Within 48 Hours Sepsis New/Unexplained Change in Mental Status Sepsis Action Taken by Nursing Laboratory Data 01/02/24 07:10 01/02/24 07:10 Lab Results 01/01/24 Range/Units 13:23 WBC 17.02 H (4.8-10.8) K/ul RBC 3.12 L (4.20-5.40) M/uL Hgb 10.2 L (12.0-16.0) g/dl Hct 31.1 L (37.0-47.0) % MCV 99.7 (80.0-100.0) fL MCH 32.7 (25.0-34.0) pg MCHC 32.8 (32.0-36.0) g/dL RDW Std Deviation 55.1 H (36.4-46.3) fL RDW Coeff of Bryan 15.0 H (11.5-14.5) % Plt Count 274 (130-400) K/uL MPV 9.9 (9.4-12.4) fL Immature Gran % (Auto) 4.1 % Neut % (Auto) 82.6 % Lymph % (Auto) 5.2 % [place] % (Auto) 7.8 % Eos % (Auto) 0.1 % Baso % (Auto) 0.2 % Neut # (Auto) 14.07 H (1.40-6.50) K/uL Lymph # (Auto) 0.88 L (1.20-3.40) K/uL [place] # (Auto) 1.33 H (0.11-0.59) K/uL Eos # (Auto) 0.01 (0.00-0.50) K/uL Baso # (Auto) 0.03 (0.00-0.20) K/uL Immature Gran # (Auto) 0.70 H (0.01-0.20) K/uL Absolute Nucleated RBC 0.03 (0.00-0.12) K/uL Nucleated RBC % (auto) 0.2 % Sodium 138 (136-145) mmol/L Potassium 4.0 (3.5-5.1) mmol/L Chloride 103 (98-107) mmol/L Carbon Dioxide 29 (21-32) mmol/L Anion Gap 6 (3-11) BUN 25 H (6-23) mg/dl Creatinine 0.86 (0.6-1.2) mg/dl Est Cr Clr Drug Dosing 44.8 ml/min eGFR 65.34 BUN/Creatinine Ratio 29.1 H (10-20) Glucose 135 H (70-99(Fasting)) mg/dl Calcium 8.8 (8.6-10.3) mg/dl Total Bilirubin 0.9 (0.2-1.0) mg/dl AST 21 (13-39) U/L ALT 12 (7-52) U/L Alkaline Phosphatase 51 (34-104) U/L Total Protein 6.1 (6.0-8.3) gm/dl Albumin 3.4 (3.4-5.0) gm/dl Globulin 2.7 (2.5-4.0) gm/dl Albumin/Globulin Ratio 1.3 (0.9-2) Administered Medications Acetaminophen (Acetaminophen 500 Mg Tab) 1,000 mg PO Q8 PAULA Stop: 01/31/24 17:59 Last Admin: 01/03/24 04:20 Dose: 1,000 mg Documented By: Admin: 01/02/24 20:42 Dose: 1,000 mg Documented By: Admin: 01/02/24 13:28 Dose: 1,000 mg Documented By: Admin: 01/02/24 06:00 Dose: 1,000 mg Documented By: Admin: 01/01/24 18:24 Dose: 1,000 mg Documented By: BCD Ascorbic Acid (Ascorbic Acid 500 Mg Tab) 500 mg PO DAILY PAULA Stop: 02/01/24 08:59 Last Admin: 01/02/24 08:28 Dose: 500 mg Documented By: TMP Doxycycline Hyclate (Doxycycline Hyclate 100 Mg Cap) 100 mg PO BID PAULA Stop: 01/08/24 20:59 Last Admin: 01/02/24 20:39 Dose: 100 mg Documented By: KMG Famotidine (Famotidine 20 Mg Tab) 20 mg PO HS PAULA Stop: 01/31/24 20:59 Last Admin: 01/02/24 20:40 Dose: 20 mg Documented By: Admin: 01/01/24 20:41 Dose: 20 mg Documented By: ACO Gabapentin (Gabapentin 300 Mg Cap) 300 mg PO BID PAULA Stop: 01/31/24 20:59 Last Admin: 01/02/24 20:40 Dose: 300 mg Documented By: Admin: 01/02/24 08:29 Dose: 300 mg Documented By: Admin: 01/01/24 20:41 Dose: 300 mg Documented By: ACO Heparin Sodium (Porcine) (Heparin Sod 5,000 Unit/0.5 Ml Vial) 5,000 units SQ Q12 PAULA Stop: 01/31/24 20:59 Last Admin: 01/02/24 20:39 Dose: 5,000 units Documented By: Admin: 01/02/24 08:32 Dose: 5,000 units Documented By: Admin: 01/01/24 20:42 Dose: 5,000 units Documented By: ACO Ceftriaxone Sodium (Rocephin) 2,000 mg in 50 mls @ 100 mls/hr IV Q24H PAULA Stop: 01/08/24 22:59 Last Infusion: 01/03/24 00:00 Dose: Infused Documented By: Admin: 01/02/24 23:07 Dose: 100 mls/hr Documented By: Infusion: 01/02/24 00:03 Dose: Infused Documented By: Admin: 01/01/24 23:21 Dose: 100 mls/hr Documented By: ACO Isosorbide Mononitrate (Isosorbide [place] Extended Rel 30 Mg Tabcr) 30 mg PO QAM PAULA Stop: 02/01/24 08:59 Last Admin: 01/02/24 08:28 Dose: 30 mg Documented By: TMP Melatonin (Melatonin 3 Mg Tab) 4.5 mg PO HS PRN PRN Reason: Sleep Stop: 01/31/24 17:17 Last Admin: 01/02/24 20:39 Dose: 4.5 mg Documented By: MAITE Misabielaneous (Tofacitinib [Xeljanz Xr] 11 Mg Tablet Extended Release - Order Awaiting Action) 1 each N/A QS PAULA Stop: 02/01/24 00:00 Last Admin: 01/02/24 23:15 Dose: Not Given Documented By: Admin: 01/02/24 15:56 Dose: Not Given Documented By: Admin: 01/02/24 07:58 Dose: Not Given Documented By: Admin: 01/01/24 23:33 Dose: Not Given Documented By: KEON Tomlin (Check Buprenorphine Patch) 1 each N/A QS PAULA Stop: 02/01/24 00:00 Last Admin: 01/03/24 00:01 Dose: 1 each Documented By: Admin: 01/02/24 15:56 Dose: 1 each Documented By: Admin: 01/02/24 08:26 Dose: 1 each Documented By: Admin: 01/01/24 23:22 Dose: 1 each Documented By: KEON Rosuvastatin Calcium (Rosuvastatin Calcium 20 Mg Tab) 40 mg PO HS PAULA Stop: 01/31/24 20:59 Last Admin: 01/02/24 20:40 Dose: 40 mg Documented By: Admin: 01/01/24 20:42 Dose: 40 mg Documented By: KEON Sennosides (Senna 8.6 Mg Tab) 8.6 mg PO BID PAULA Stop: 02/01/24 20:59 Last Admin: 01/02/24 20:39 Dose: 8.6 mg Documented By: MAITE Vitamin D (Cholecalciferol 25 Mcg (1000 Units) Tab) 25 mcg PO DAILY PAULA Stop: 02/01/24 08:59 Last Admin: 01/02/24 08:26 Dose: 25 mcg Documented By: INDIA Discontinued Medications Hydrocodone Bitart/Acetaminophen (Hydrocodone/Acetamophen 5/325mg Tab) 0.5 tab PO NOW STA Stop: 01/01/24 11:43 Last Admin: 01/01/24 12:28 Dose: 0.5 tab Documented By: SWD Calcium/Vitamin D (Calcium 600mg + Vit D 400 Iu Tab) 1 tab PO DAILY PAULA Stop: 02/01/24 08:59 Last Admin: 01/02/24 08:29 Dose: 1 tab Documented By: INDIA Doxycycline Hyclate 100 mg/ (Dextrose) 100 mls @ 50 mls/hr IV Q12H PAULA Stop: 01/09/24 00:00 Last Infusion: 01/02/24 14:39 Dose: Infused Documented By: Infusion: 01/02/24 12:27 Dose: 50 mls/hr Documented By: Infusion: 01/02/24 12:04 Dose: 0 mls/hr Documented By: Admin: 01/02/24 12:04 Dose: 50 mls/hr Documented By: Infusion: 01/02/24 02:04 Dose: Infused Documented By: Admin: 01/02/24 00:04 Dose: 50 mls/hr Documented By: KEON Ketorolac Tromethamine (Ketorolac Tromethamine 15 Mg/Ml Vial) 15 mg IV NOW ONE Stop: 01/01/24 20:16 Last Admin: 01/01/24 20:39 Dose: 15 mg Documented By: KEON Metoprolol Succinate (Metoprolol Succ 25mg Ext Rel Tab) 25 mg PO BID PAULA Stop: 01/31/24 20:59 Last Admin: 01/02/24 08:29 Dose: 25 mg Documented By: Admin: 01/01/24 20:42 Dose: 25 mg Documented By: KEON Ondansetron HCl (Ondansetron 4 Mg Od Tab) 4 mg PO NOW STA Stop: 01/01/24 12:25 Last Admin: 01/01/24 12:29 Dose: 4 mg Documented By: MOIRA Imaging Data Radiologist's Impression: Lumbar Spine CT 01/01/24 10:57 CT OF THE LUMBAR SPINE CLINICAL HISTORY: R> L LE weakness COMPARISON STUDY: Lumbar spine CT November 22, 2023. Lumbar spine MRI November 23, 2023. TECHNIQUE: Helical axial images of the lumbar spine were obtained. Sagittal and coronal reconstructions were viewed. Automated exposure control was utilized for the study. A dose lowering technique was utilized adhering to the principles of ALARA. FINDINGS: A 4.5 cm infrarenal abdominal aortic aneurysm is unchanged in appearance since CT of November 22, 2023. Multiple old lower thoracic and lumbar spine compression fractures are unchanged. For purposes of numbering on this exam, the L5-S1 disc space is assigned to axial image 313 of 365. There are postoperative findings consistent with L2-L4 decompression and pedicle screw fusion. The postoperative appearance is unchanged. No acute lumbar spine fractures are identified. There are no osseous lesions. Moderate to severe multilevel degenerative disc disease and facet arthrosis is noted. Central canal and neural foramen are suboptimally assessed given CT technique. IMPRESSION: 1. No acute lumbar spine fracture or subluxation. 2. No change in appearance of old thoracolumbar spine fracture since CT of November 22, 2023. 3. Stable postoperative findings following L2-L4 decompression and fusion. 4. Moderate to severe multilevel degenerative disc disease and facet arthrosis within the lumbar spine. Suboptimal evaluation of the central canal and neural foramen given CT technique. 5. 4.5 cm infrarenal abdominal aortic aneurysm, unchanged since prior CT. ACT 112: Negative or not required by law. Electronically signed by: Freddy Rivera M.D. 01/01/2024 12:16 PM Discharge Plan Visit Data Chief Complaint: Back Injury/Pain ED Provider: Nury Centeno Discharge Problem: DDD (degenerative disc disease), lumbar, Ambulatory dysfunction, Weakness Patient Disposition: Admitted As Inpatient Discharge Instructions Interventions: ED Discharge Assessment Last Done: 01/01/24 16:51 Discharge Problem: DDD (degenerative disc disease), lumbar Qualifiers: Disc-related pain type: discogenic back pain and lower extremity pain Qualified Code(s): M51.362 - Other intervertebral disc degeneration, lumbar region with discogenic back pain and lower extremity pain
[2024-01-01] MEDS ORDERED: MAGNESIUM HYDROXIDE SUSP 30 ML UDC PO PRN (17:18)
[2024-01-01] MEDS ORDERED: POLYETHYLENE (MIRALAX) 17 GM PACK PO PRN (17:18)
--- OUTSIDE RECORDS SUMMARY | 2024-01-01 17:38 | External Medical Summary | Summary of Care ---
Author Name Unknown Organization [facility] Address [address] [place] [address] Phone [phone] Care Team Providers Care Snack Steward Name Role Phone Candice Mcnair DO Primary Care Provider Reason for Visit * Reason Comments Emergency Department Follow-Up Encounter Details Date Type Department Care Team (Latest Contact Info) Description 12/31/2023 1:00 PM EDT Office Visit Family Practice [facility] [address] [place] [address] Candice Mcnair DO [address] [place] [address] Hallucination*; Opioid dependence, uncomplicated (HCC); Spinal stenosis of lumbar region without neurogenic claudication; Asymptomatic bilateral carotid artery stenosis; Infrarenal abdominal aortic aneurysm (AAA) without rupture (HCC) Allergies Active Allergy Reactions Criticality Noted Date Comments Codeine Nausea/vomiting 03/23/2014 Hydroxychloroquine Rash 07/18/2021 Patient reported red itchy rash to neck after taking medication for 1 day Lisinopril Cough 12/09/2009 Pregabalin Edema Other 09/07/2016 Edema in the feet Morphine Anaphylaxis High 04/10/2011 Shrimp Flavor Nausea/vomiting 12/28/2015 Sulfa Antibiotics Nausea/vomiting 08/09/2000 Adhesive Tape Itching 08/25/2014 documented as of this encounter (statuses as of 12/31/2023) Medications Medication Sig Dispensed Refills Start Date End Date Status Aspirin 81 MG Tablet Take 1 Tablet by mouth 3 times a week. 34 Tab 5 02/07/2015 Active amoxicillin (AMOXIL) 500 MG Capsule 4 01/06/2019 Active Melatonin 3 MG Oral CapsuleIndications: as needed Take 1 Capsule by mouth at bedtime as needed for Insomnia. Active Buprenorphine 10 MCG/HR Transdermal Patch Weekly 01/16/2022 Active Metoprolol Succinate ER 25 MG Oral [...] Packet by mouth in the morning. Active Xeljanz XR 11 MG Oral Tablet [...] Solution (Povidone (PF)) Instill into eye. Active Famotidine 20 MG Oral Tablet (Pepcid) Take 1 Tablet by mouth every night at bedtime. 90 Tablet 3 10/24/2023 Active Rosuvastatin Calcium 40 MG Oral Tablet (Crestor)Indication s:Old myocardial infarct,Dyslipidemi a, goal to be determined TAKE 1 TABLET BY MOUTH EVERY DAY 90 Tablet 2 10/31/2023 Active Additional Information Patient taking differently:40 mg Oral Daily(AM), Takes at bed, Reported on 11/12/2023 Acetaminophen 500 MG Oral Tablet (Tylenol Extra Strength) Take 1 Tablet by mouth at bedtime as needed for Pain, Breakthrough. 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 90 Tablet 3 12/13/2023 Active predniSONE 10 MG Oral Tablet (Deltasone)Indicati ons:Spinal stenosis of lumbar region with neurogenic claudication,Post laminectomy syndrome Take 5 tabs for 2 days, 4 tabs for 2 days, 3 tabs for 2 days, 2 tabs for 2 days 1 tab for 2 days 30 Tablet 12/19/2023 Active Additional Information Patient not taking.Reported on 12/31/2023 documented as of this encounter (statuses as of 12/31/2023) Active Problems Problem Noted Date Diagnosed Date Asymptomatic bilateral carotid artery stenosis 1 Rheumatoid arthritis with rh eumatoid factor of multiple sites without organ or systems involvement 09/10/2023 Opioid dependence, uncomplicated 04/10/2023 Atherosclerosis of ute mountain co ronary artery without angina pectoris 04/10/2023 [...] artery disease of n ative artery of ute mountain heart with stable angina pectoris 08/21/2019 Gastro-esophageal [...] as of this encounter (statuses as of 12/31/2023) Resolved Problems Problem Noted Date Diagnosed Date [...] artery disease) 10/31/2011 11/06/2020 [employer] Other*[id number] 10/31/2011 04/17/2016 Overview: Study Title: Genomic Markers for Patients with Cardiovascular Disease Project # [id number] Algebra Tutor: Yasemin Timmons MD [phone] Dyspnea 10/15/2011 01/27/2017 Dyslipidemia, goal to be determined 02/15/2009 09/26/2013 Overview: Per Lipid Taxonomy. Other allergic rhinitis 08/08/200103/2019 Overview: ICD-10 update of inactive term Acute. PURE HYPERCHOLESTEROLEM 10/30/2000 12/0 10/2008 Overview: Per Lipid Taxonomy. documented as of this encounter (statuses as of 12/31/2023) Immunizations Name Administration Dates Next Due COVID-19 mRNA, LNP-s, No Pre serve, 2-Dose Series (Moderna) 05/04/2020,04/04/2020 COVID-19, MRNA-LNP, 24-25, P R, 30MCG/0.3ML, IM, 12YRS AND ABOVE ([employer]-Comirnat) 12/13/2023 COVID-19, mRNA, LNP-s, PF, B ooster, 100mcg/0.5mg (Moderna) 03/16/2021 Covid-19, Mrna, Lnp-s, Pf, B ivalent, 50 Mcg, IM, 12 yrs and above (Moderna) 11/21/2021 Pneumococcal Conjugate Vacc, 13 Valent (Prevnar) 04/16/2014 Season Influenza, Quad, PF, Adjuvanted, 65+ Yrs, IM (FLUAD) 12/30/2019 Seasonal Influenza Vac., MDV , IM, 0.5 mL (Fluzone) 01/15/2014,01/08/2013,11/16/2011,2010,01/17/2010,12/25/2007,01/01/2007,1 03/19/2005 Seasonal Influenza, High Dos e, Trivalent, PF, IM (Fluzone HD) 12/13/2023,01/21/2017 Seasonal Influenza, PF, 6 M & above, IM , (FluLaval or Fluzone) 02/04/2018 Seasonal Influenza, Quadriva lent Hd (Fluzone Hd) 12/04/2022,02/20/2022,12/27/2020 Seasonal Influenza, Quadriva lent, No Preserve, IM 03/02/2016,12/27/2014 Seasonal Influenza, Trivalen t, Adjuvanted, 65+ YRS, PF, (Fluad) 01/05/2019 TDAP (age 10 and older)(Boostrix) 06/11/2023,08/2013 Varicella Zoster Vaccine (Adult) 08/29/2011 Zoster Vaccine Recombinant (Shingrix) 01/05/2019 ,08/19/2018 documented as of this encounter Social History Tobacco Use Types Packs/Day Years Used Date Smoking Tobacco: Former Cigarettes 1 20 0 03/11/1955 - 03/11/1975 Smokeless Tobacco: Never Tobacco Cessation:Counseling Given: Yes Comments:No passive smoke exposure Alcohol Use Standard Drinks/Week Comments Yes 0 [...] Sign Reading Time Taken Comments Blood Pressure 116/60 12/31/2023 1:14 PM EDT Pulse 83 12/31/2023 1:14 PM EDT Temperature 37.2 C (98.9 F) 12/31/2023 1:14 PM ED T Respiratory Rate 14 12/31/2023 1:14 PM EDT Oxygen Saturation 95% 12/31/2023 1:14 PM EDT Inhaled Oxygen Concentration - - Weight 71.6 kg (157 lb 14.4 oz) 12/31/2023 1:14 PM EDT Height 163.8 cm (5' 4.5") 12/31/2023 1:14 PM EDT Body Mass Index 26.68 12/31/2023 1:14 PM EDT documented in this encounter Progress Notes * Candice Mcnair, DO - 12/31/2023 1:01 PM EDT SUBJECTIVE: Chief Complaint Patient presents with Emergency Department Follow-Up HPI: Sunita Thomas is a 88 year old female who presents today for ED follow-up. Pt was evaluated for confusion and hallucinations. Pt reported seeing angels over her daughter's heads. She did have 80-90% stenosis of the left distal common carotid artery. She was offered admission for further f/u but refused and was discharged to home with family. Pt states that she is doing fine. Unclear etiology of symptoms. Daughter states they were sitting eating lunch and she started to become incoherent. She was telling them that her was standingthere chopping apples and he wasn't even home. She seemed like she may pass out per daughter. EMS did transport her. Pt feels she is doing fine. She is set on getting surgery on 01/13 for her back. She states that she will see the wound clinic again next week. She notes that her leg wounds are currently looking good. 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) Gastro-esophageal reflux disease without esophagitis Post laminectomy syndrome Chronic kidney disease, stage 3a (HCC) Compression fracture of T12 vertebra with routine healing High risk for fracture due to osteoporosis by DEXA scan Overweight (BMI 25.0-29.9) Immunodeficiency due to drugs (HCC) Sacroiliitis, not elsewhere classified (HCC) Opioid dependence, uncomplicated (HCC) Atherosclerosis of [place] coronary artery without angina pectoris Rheumatoid arthritis with rheumatoid factor of multiple sites without organ or systems involvement (HCC) Asymptomatic bilateral carotid artery stenosis Current Outpatient Medications Medication Sig Dispense Refill Aspirin 81 MG Tablet Take 1 Tablet by mouth 3 times a week. 34 Tab 5 amoxicillin (AMOXIL) 500 MG Capsule 4 Melatonin 3 MG Oral Capsule Take 1 Capsule by mouth at bedtime as needed for Insomnia. Buprenorphine 10 MCG/HR Transdermal Patch Weekly Metoprolol Succinate ER 25 MG Oral Tablet Extended Release 24 Hour (toPROL XL) TAKE 1 TABLET BY MOUTH TWO TIMES DAILY 180 Tablet 3 Triamcinolone Acetonide 0.1 % External Cream (Aristocort) Apply topically to affected area 2 times a day. To affected area. 15 g 5 Calcium-Vitamins C & D 500-10-250 MG-MG-UNIT Oral Tablet Chewable Take by mouth. Furosemide 20 MG Oral Tablet (Lasix) TAKE 1 TABLET BY MOUTH 3 DAYS PER WEEK 40 Tablet 3 Polyethylene Glycol 3350 17 GM Oral Packet (Miralax) Take 1 Packet by mouth in the morning. Xeljanz XR 11 MG Oral Tablet Extended Release 24 Hour (Tofacitinib Citrate ER) Take 1 tablet by mouth once a day. 90 Tablet 1 Gabapentin 300 MG Oral Capsule (Neurontin) Take 1 Capsule by mouth in the morning and 1 Capsule before bedtime. 180 Capsule 3 Ocuvite-Lutein Oral Tablet Take by mouth. iVIZIA Dry Eyes 0.5 % Ophthalmic Solution (Povidone (PF)) Instill into eye. Famotidine 20 MG Oral Tablet (Pepcid) Take 1 Tablet by mouth every night at bedtime. 90 Tablet 3 Rosuvastatin Calcium 40 MG Oral Tablet (Crestor) TAKE 1 TABLET BY MOUTH EVERY DAY (Patient taking differently: Take 1 Tablet by mouth in the morning. Takes at bed .) 90 Tablet 2 Acetaminophen 500 MG Oral Tablet (Tylenol Extra Strength) Take 1 Tablet by mouth at bedtime as needed for Pain, Breakthrough. Isosorbide Mononitrate ER 30 MG Oral Tablet Extended Release 24 Hour (Imdur) Take 1 Tablet by mouthin the morning. 90 Tablet 3 predniSONE 10 MG Oral Tablet (Deltasone) Take 5 tabs for 2 days, 4 tabs for 2 days, 3 tabs for 2 days, 2 tabs for 2 days 1 tab for 2 days (Patient not taking: Reported on 12/31/2023) 30 Tablet 0 No current facility-administered medications for this visit. Past Medical History: Diagnosis Date ALLERGIC RHINITIS NEC 08/08/2001 Arthritis, rheumatoid (HCC) CAD (coronary artery disease) 10/31/2011 Compression fracture of T12 vertebra with routine healing 07/09/2021 Dyspnea 10/15/2011 GENERAL OSTEOARTHROSIS 10/30/2000 [employer] Other*[id number] 10/31/2011 High risk for fracture due to [...] post placement of implantable loop recorder 05/13/2018 Past Surgical History: Procedure Laterality Date ANGIO-CAROTID/CERBERAL BILAT Angiography, Cebrebral COLONOSCOPY, DIAGNOSTIC (RECTUM) 12/30/2018 serrated adenomatous polyps, diverticulosis, repeat 3 yrs/COLONOSCOPY FLEXIBLE PROXIMAL DIAGNOSTIC performed by Jay Hollis MD at ENDOSCOPY [facility] COLONOSCOPY, GI REFERRAL OP 05/10/2003 Normal exam.Repeat every 10 years. CORONARY ANGIOGRAPHY W/LEFT HEART CATH 10/31/2011 CORONARY ANGIOGRAPHY W/LEFT HEART CATH performed by Medardo Castro MD at [facility] DEXA SCAN/BONE MINERAL AXIAL 12/10/2001 lumbar -0.4; hip -3.3 EGD, FLEXIBLE, DIAGNOSTIC 08/17/2016 normal/ESOPHAGOGASTRODUODENOSCOPY (EGD), FLEXIBLE, TRANSORAL, DIAGNOSTIC performed by Kandis Mahmood DO at ENDOSCOPY [facility] EGD, FLEXIBLE, DIAGNOSTIC 11/08/2022 hiatal hernia / ESOPHAGOGASTRODUODENOSCOPY (EGD), FLEXIBLE, TRANSORAL, DIAGNOSTIC performed by Jay Hollis MD at ENDOSCOPY [facility] EGD, FLEXIBLE, DIAGNOSTIC 11/13/2023 ESOPHAGOGASTRODUODENOSCOPY (EGD), FLEXIBLE, TRANSORAL, DIAGNOSTIC performed by Lucina Queen DOat ENDOSCOPY [facility] EGD, W/ENDOSCOPIC US 10/14/2019 benign pancreatic cyst / ESOPHAGOGASTRODUODENOSCOPY (EGD), FLEXIBLE, TRANSORAL, ENDOSCOPIC ULTRASOUND performed by Jay Hollis MD at ENDOSCOPY [facility] ELECTROPHYSIOLOGY EVALUATION 12/27/2017 3 CATHETER EP STUDY performed by Sully Vargas IV, MD at [facility] CYLINDER TESTER PAP SCREEN 12/06/2010 Dr Alexandrea dye INSERT OR REPLACE OF PERIPHERAL OR GASTRIC NEUROSTIM PULSE GENERATOR OR LIBERAL ARTS AND HUMANITIES CHAIR N/A 08/05/2020 PERIP NEUROSTIM INSERT/REPLACE performed by Disha Melendez MD at OR [facility] INSERT OR REPLACE OF PERIPHERAL OR GASTRIC NEUROSTIM PULSE GENERATOR OR LIBERAL ARTS AND HUMANITIES CHAIR N/A 08/15/2020 PERIPH NEUROSTIM INSERT/REPLACE performed by Disha Melendez MD at OR [facility] IOF-DEXA SCAN/BONE MINERAL AX 09/25/2004 dexa scan: [...] by Jorge L Alex MD at OR [facility] REMOVE TONSILS & ADENOIDS, UNDER 12 Tonsillectomy/Adenoids,<12 Y/O REPAIR BLADDER & VAGINA, CYSTOCELE 01/18/2006 Cystocele Repair Anter. SHOULDER ARTHROSCOPY/REMOVE OBJECT 1969-left; 1971-right VAGINAL HYSTERECTOMY 01/18/2006 Dr juan pablo Lechuga Review of patient's allergies indicates: Allergen Reactions Morphine Anaphylaxis Codeine Nausea/vomiting Hydroxychloroquine Rash Patient reported red itchy rash to neck after taking medication for 1 day Lisinopril Cough Lyrica [Pregabalin] Edema Other Edema in the feet Shrimp Flavor Nausea/vomiting Sulfa Antibiotics Nausea/vomiting Tape [Adhesive Tape] Itching Family History Problem Relation Name Age of Onset Diabetes Mother Heart Disorder Father MT age 75 Heart Disorder Brother MT Other (Other) Son Renal cancer Family Status Relation Status Mo Fa at age 92 bypass surgery Bro at age 36 heart attack Betsey Alive Son Alive Son Alive Son Alive Son Alive Social History Tobacco Use Smoking status: Former Current packs/day: 0.00 Average packs/day: 1 pack/day for 20.0 years (20.0 ttl pk-yrs) Types: Cigarettes Start date: 03/11/1955 Quit date: 03/11/1975 Years since quittin.8 Smokeless tobacco: Never Tobacco comments: No passive smoke exposure Substance Use Topics Alcohol use: Yes Comment: glass of wine Vaping/E-Cigarette Use Vaping/E-Cigarette Use Never User Vaping/E-Cigarette Substances Vaping/E-Cigarette Devices REVIEW OF SYSTEMS: Review of Systems Constitutional: Negative for chills, fatigue, fever and unexpected weight change. Respiratory: Negative for cough, chest tightness, shortness of breath and wheezing. Cardiovascular: Negative for chest pain, palpitations and leg swelling. Gastrointestinal: Negative for abdominal pain, constipation, diarrhea, nausea and vomiting. Musculoskeletal: Positive for back pain. Negative for arthralgias, gait problem and joint swelling. Skin: Negative for color change, pallor and rash. Neurological: As per HPI OBJECTIVE: BP 116/60 (BP Site: Left Arm, BP Position: Sitting, BP Cuff Size: Regular) | Pulse 83 | Temp 37.2 C (98.9 F) (Tympanic) | Resp 14 | Ht 1.638 m (5' 4.5") | Wt 71.6 kg (157 lb 14.4 oz) | SpO2 95% |BMI 26.68 kg/m | BSA 1.8 m PHYSICAL EXAM: Physical Exam Constitutional: General: She is not in acute distress. Appearance: She is well-developed. Cardiovascular: Rate and Rhythm: Normal rate and regular rhythm. Heart sounds: Normal heart sounds. No murmur heard. No friction rub. No gallop. Pulmonary: Effort: Pulmonary effort is normal. No respiratory distress. Breath sounds: Normal breath sounds. No wheezing or rales. Abdominal: General: Bowel sounds are normal. There is no distension. Palpations: Abdomen is soft. Tenderness: There is no abdominal tenderness. There is no guarding. Musculoskeletal: General: No tenderness or deformity. Normal range of motion. Skin: General: Skin is warm and dry. Coloration: Skin is not pale. Findings: Bruising (b/l LE) present. No erythema or rash. Comments: Extensive venous stasis changes Neurological: Mental Status: She is alert and oriented to person, place, and time. ASSESSMENT/PLAN: (R44.3) Hallucination (primary encounter diagnosis) (F11.20) Opioid dependence, uncomplicated (HCC) Plan: Unclear etiology. ?TIA. Imaging and work-up fairly unremarkable. BUN was up slightly and WBC were slightly low. She was somewhat anemic. None of these should cause her symptoms to the degree they were noted. She has had no issues since. ?if related to opioid use. (M48.061) Spinal stenosis of lumbar region without neurogenic claudication Plan: pt understands she is at considerable risk for surgery given comorbid conditions. She states she is willing to take that risk to get some relief. Reviewed that this may not bring her significant relief. She expresses understanding. (I65.23) Asymptomatic bilateral carotid artery stenosis (I71.43) Infrarenal abdominal aortic aneurysm (AAA) without rupture (HCC) Plan: Reviewed renal note. No vascular contraindication to surgery. They did offer repair of her AAA prior but she preferred to have her back issues handled first. Follow-up: after surgery Total time today including reviewing chart before the visit, pertinent labs, imaging reports, face to face time, and documentation time was 42 minutes. Candice Mcnair DO documented in this encounter Nursing Notes * Lauren Admas LPN - 12/31/2023 1:11 PM EDT Patient here for ED follow up visit. Reports no further episodes. Pt reports her voice is hoarse, feels like something is stuck in her throat. Healing skin tear back of right hand - following with wound clinic. Patient has been verbally educated on the need or importance of Colon Cancer Screening, Pneumococcal Vaccine, and RSV vaccine and has declined topic(s). documented in this encounter Plan of Treatment Upcoming Encounters Date Type Department Care Team (Late st Contact Info) Description 03/26/2024 10:00 AM EST Office Visit Gastroenterology, [facility] [address] [facility] [place] [address] Rama Francois CRNP [address] [facility] [place] [address] 05/20/2024 11:00 AM EDT Imaging Radiology [facility] [address] [facility] [address] [facility] [place] [address] 06/10/2024 11:10 AM EDT Office Visit Vascular Surgery, [facility] [address] [facility] [place] [address] Alvarez Newberry MD [address] [place] [facility] [place] [address] 06/29/2024 1:30 PM EDT Office Visit Cardiology, [facility] [address] [place] [address] Sumeet Bergeron MD [address] [place] [address] 10/22/2024 8:45 AM EDT Office Visit Dermatology [facility] [address] [place] [address] Babatunde Yanes MD [address] [facility] [place] [address] Scheduled Procedures Name Priority Associated Diagnoses Date/Ti me COLONOSCOPY FLEXIBLE PROXIMAL DIAGNOSTIC Recall History of colon polyps Health Maintenance Due Date Last Done Comments Adult Wellness Visit 04/14/2015 04/14/2014 DXA Scan 09/29/2020 09/29/2018, 04/2013, 06/10/2013 CKD PHOS USE SMARTSET [id number] 12/21/2021 12/21/2020 Colonoscopy 01/01/2024 12/30/2018, 12/30/2018 Postp oned from 12/30/2021 (Patient Declined After Education) Albumin/Creatinine Ratio 09/09/2024 09/10/2023 Depression Screening 09/09/2024 09/10/2023 CKD HGB USE SMARTSET [id number] 12/04/202412/04, 11/28/2023, 09/10/2023, Additional history exists DTap/Tdap Vaccines (3 - Td or Tdap) 06/10/2033 06/11/2023, 05/14/2013, 11/19/2003 Pneumococcal Vaccine: 65+ Years Completed 04/16/2014, 07/30/2001 Zoster Vaccines Completed 01/05/2019, 08/09, 08/29/2011 VITAMIN D LEVEL ONCE IN A LIFETIME-USE SMARTSET# [id number] Completed 09/10/2023 Diabetic Eye Exam Discontinued 09/17/2023, , 09/26/2021, Additional history exists COVID-19 Vaccine Completed 12/13/2023, , 03/16/2021, Additional history exists Influenza Vaccine (FLU shot) Completed 12/13/2023, 12/04/2022, 02/20/2022, Additional history exists HPV (Gardasil) Vaccine Aged Out No lo nger eligible based on patient's age to complete this topic Hepatitis B Vaccine Aged Out No longe r eligible based on patient's age to complete this topic MENINGOCOCCAL (MENACTRA/MENVEO) Aged Out No longer eligible based on patient's age to complete this topic documented as of this encounter Medical Devices Implanted Type Area Infectious Disease Physician Device Identifier Shelf Expiration Date Model / Serial / Lot Lens 19.0 Mx60 - [id number] Implanted:Qty: 1 on 12/28/2015 by Jorge L Alex MD at OR [facility] Left: Eye [employer] : SURGICAL 02/07/2018 MX60-19.0 / [id number] / [id number] Lens 20.5 Mx60 - [id number] - [id number] Implanted:Qty: 1 on 01/25/2016 by Jorge L Alex MD at OR [facility] [employer] : SURGICAL 03/10/2018 MX60-20.5 / [id number] / [id number] Percutaneous Extension 2201bun - [id number] Implanted:Qty: 1 on 08/05/2020 by Disha Melendez MD at OR [facility] N/A: Buttocks [employer] 03/30/2022 [id number] / / Kit Tined Lead - [id number] Implanted:Qty: 1 on 08/05/2020 by Disha Melendez MD at OR [facility] N/A: Buttocks [employer] 07/16/2022 1201 / / Neurostimulator - [id number] Implanted:Qty: 1 on 08/15/2020 by Disha Melendez MD at OR [facility] Right: Back [employer] 11/26/2021 1101 / / documented as of this encounter Visit Diagnoses Diagnosis Hallucination- Primary Hallucinations Opioid dependence, uncomplicated (HCC) Spinal stenosis of lumbar region without neurogenic claudication Spinal stenosis, lumbar region, without neurogenic claudication Asymptomatic bilateral carotid artery stenosis Occlusion and stenosis of multiple and bilateral precerebral arteries without mention of cerebral infarction Infrarenal abdominal aortic aneurysm (AAA) without rupture (HCC) documented in this encounter Advance Directives * [...] and were consensually agreed upon. Care Teams Snack Steward Relationship Specialty Start Date End Date Candice Mcnair DO [address] [place] [address] PCP - General Family Medicine 09/09/23 documented as of this encounter
[2024-01-01] MEDS ORDERED: ARTIFICIAL TEARS OP PRN (17:39)
--- OUTSIDE RECORDS SUMMARY | 2024-01-01 17:39 | External Medical Summary | Summary of Care ---
Author Name Unknown Organization [facility] Address [address] [place] [address] Phone [phone] Care Team Providers Care House Mover Helper Name Role Phone Candice Mcnair DO Primary Care Provider Reason for Visit * Reason Comments Follow Up Encounter Details Date Type Department Care Team (Late st Contact Info) Description 12/19/2023 3:00 PM EDT Office Visit Family Practice [address] [place] [address] [place] [address] Candice Mcnair DO [address] [place] [address] Gastro-esophageal reflux disease without esophagitis*; Spinal stenosis of lumbar region with neurogenic claudication; Post laminectomy syndrome; Open wound of right lower extremity, subsequent encounter Allergies Active Allergy Reactions Criticality Noted Date Comments Codeine Nausea/vomiting 03/23/2014 Hydroxychloroquine Rash 07/18/2021 Patient reported red itchy rash to neck after taking medication for 1 day Lisinopril Cough 12/09/2009 Pregabalin Edema Other 09/07/2016 Edema in the feet Morphine Anaphylaxis High 04/10/2011 Shrimp Flavor Nausea/vomiting 12/28/2015 Sulfa Antibiotics Nausea/vomiting 08/09/2000 Adhesive Tape Itching 08/25/2014 documented as of this encounter (statuses as of 12/27/2023) Medications Medication Sig Dispensed Refills Start Date End Date Status Aspirin 81 MG Tablet Take 1 Tablet by mouth 3 times a week. 34 Tab 5 5 Active amoxicillin (AMOXIL) 500 MG Capsule 4 9 Active Melatonin 3 MG Oral CapsuleIndication s:as needed Take 1 Capsule by mouth at bedtime as needed for Insomnia. Active Buprenorphine 10 MCG/HR Transdermal Patch Weekly 2 Active Metoprolol Succinate ER 25 MG Oral Tablet Extended Release 24 Hour (toPROL XL)Indications:Ol d myocardial infarct TAKE 1 TABLET BY MOUTH TWO TIMES DAILY 180 Tablet 3 4 Active Triamcinolone Acetonide 0.1 % External Cream (Aristocort)Indic ations:Herpes zoster without complication Apply topically to affected area 2 times a day. To affected area. 15 g 5 4 Active Additional Information Patient not taking.Reported on 12/25/2023 Calcium-Vitamins C & D 500-10-250 MG-MG-UNIT Oral [...] EVERY DAY 90 Tablet 2 4 Active Additional Information Patient taking differently:40 mg Oral Daily(AM), Takes at bed, Reported on 11/12/2023 Acetaminophen 500 MG Oral Tablet (Tylenol Extra Strength) Take 1 Tablet by mouth at bedtime as needed for Pain, Breakthrough. Active Isosorbide Mononitrate ER 30 MG Oral Tablet Extended Release 24 Hour (Imdur)Indication s:Coronary artery disease of [place] artery of [place] heart with stable angina pectoris (HCC) Take 1 Tablet by mouth in the morning. 90 Tablet 3 4 Active predniSONE 10 MG Oral Tablet (Deltasone)Indica tions:Spinal stenosis of lumbar region with neurogenic claudication,Post laminectomy syndrome Take 5 tabs for 2 days, 4 tabs for 2 days, 3 tabs for 2 days, 2 tabs for 2 days 1 tab for 2 days 30 Tablet 4 Active Xeljanz XR 11 MG Oral Tablet Extended Release 24 Hour (Tofacitinib Citrate ER) Take 1 tablet by mouth once a day. 90 Tablet 1 4 12/24/19 24 Discontinued Cephalexin 500 MG Oral CapsuleIndication s:Cellulitis of left lower extremity,Skin tear of right hand without complication, subsequent encounter,Open wound of right lower extremity, initial encounter Take 1 Capsule by mouth in the morning and 1 Capsule before bedtime. Do all this for 10 days. 20 Capsule 4 12/23/19 24 documented as of this encounter (statuses as of 12/27/2023) Active Problems Problem Noted Date Diagnosed Date Asymptomatic bilateral carotid artery stenosis 1 Rheumatoid arthritis with rh eumatoid factor of multiple sites without organ or systems involvement 09/10/2023 Opioid dependence, uncomplicated 04/10/2023 Atherosclerosis of [place] co ronary artery without angina pectoris 04/10/2023 [...] artery disease of n ative artery of [place] heart with stable angina pectoris 08/21/2019 Gastro-esophageal [...] as of this encounter (statuses as of 12/27/2023) Resolved Problems Problem Noted Date Diagnosed Date [...] artery disease) 10/31/2011 11/06/2020 [employer] Other*[id number] 10/31/2011 04/17/2016 Overview: Study Title: Genomic Markers for Patients with Cardiovascular Disease Project # [id number] Senior Materials Analyst: Yasemin Timmons MD [phone] [facility] 10/15/2011 01/27/2017 Dyslipidemia, goal to be determined 02/15/2009 09/26/2013 Overview: Per Lipid Taxonomy. Other allergic rhinitis 08/08/200103/2019 Overview: ICD-10 update of inactive term Acute. PURE HYPERCHOLESTEROLEM 10/30/200010/2008 Overview: Per Lipid Taxonomy. documented as of this encounter (statuses as of 12/27/2023) Immunizations Name Administration Dates Next Due COVID-19 mRNA, LNP-s, No Pre serve, 2-Dose Series (Moderna) 05/04/2020,04/04/2020 COVID-19, MRNA-LNP, 24-25, P R, 30MCG/0.3ML, IM, 12YRS AND ABOVE (Pfizer-Comirnaty) 12/13/2023 COVID-19, mRNA, LNP-s, PF, B ooster, [...] Sign Reading Time Taken Comments Blood Pressure 110/68 12/19/2023 3:08 PM EDT Pulse 80 12/19/2023 3:08 PM EDT Temperature 37.7 C (99.8 F) 12/19/2023 3:08 PM ED T Respiratory Rate - - Oxygen Saturation 96% 12/19/2023 3:08 PM EDT Inhaled Oxygen Concentration - - Weight 71.4 kg (157 lb 4.8 oz) 12/19/2023 3:08 P M EDT Height - - Body Mass Index 26.58 12/13/2023 1:28 PM EDT documented in this encounter Progress Notes * Candice Mcnair, - 12/19/2023 3:17 PM EDT SUBJECTIVE: Chief Complaint Patient presents with Follow Up HPI: Sunita Thomas is a 88 year old female who presents today for regular return. Pt notes that she has had worsening pain in the right leg for the last couple of days. She has had difficulty sleeping. She is following with the wound clinic for her leg wounds. She notes that they are somewhat better than previously. She had multiple wounds PHM: Patient Active Problem List Diagnosis Generalized osteoarthritis Arthritis, rheumatoid (HCC) Old myocardial infarct S/P angioplasty with stent HTN, goal below 130/80 Paroxysmal VT (HCC) Status post placement of implantable loop recorder AAA (abdominal aortic aneurysm) (HCC) Chronic constipation Supraventricular tachycardia (HCC) Dyslipidemia Pancreatic cyst Coronary artery disease of [place] artery of [place] heart with stable angina pectoris (HCC) Gastro-esophageal reflux disease without esophagitis Post laminectomy syndrome Chronic kidney disease, stage 3a (HCC) Compression fracture of T12 vertebra with routine healing High risk for fracture due to osteoporosis by DEXA scan Overweight (BMI 25.0-29.9) Immunodeficiency due to drugs (HCC) Sacroiliitis, not elsewhere classified (HCC) Opioid dependence, uncomplicated (HCC) Atherosclerosis of [place] coronary artery without angina pectoris Rheumatoid arthritis with rheumatoid factor of multiple sites without organ or systems involvement (HCC) Current Outpatient Medications Medication Sig Dispense Refill [...] Takes at bed .) 90 Tablet 2 Xeljanz XR 11 MG Oral Tablet Extended Release 24 Hour (Tofacitinib Citrate ER) Take 1 tablet by mouth once a day. 90 Tablet 1 Acetaminophen 500 MG Oral Tablet (Tylenol Extra Strength) Take 1 Tablet by mouth at bedtime as needed for Pain, Breakthrough. Cephalexin 500 MG Oral Capsule Take 1 Capsule by mouth in the morning and 1 Capsule before bedtime.Do all this for 10 days. 20 Capsule 0 Isosorbide Mononitrate ER 30 MG Oral Tablet Extended Release 24 Hour (Imdur) Take 1 Tablet by mouthin the morning. 90 Tablet 3 No current facility-administered medications for this visit. Past Medical History: Diagnosis Date ALLERGIC RHINITIS NEC 08/08/2001 Arthritis, rheumatoid (HCC) CAD (coronary artery disease) 10/31/2011 Compression fracture of T12 vertebra with routine healing 07/09/2021 Dyspnea 10/15/2011 GENERAL OSTEOARTHROSIS 10/30/2000 [employer] Other*[id number] 10/31/2011 High risk for fracture due to [...] performed by Jay Hollis MD at ENDOSCOPY [facility] COLONOSCOPY, GI REFERRAL OP 05/10/2003 Normal exam.Repeat every 10 years. CORONARY ANGIOGRAPHY W/LEFT HEART CATH 10/31/2011 CORONARY ANGIOGRAPHY W/LEFT HEART CATH performed by Medardo Castro MD at [facility] [place]EXA SCAN/BONE MINERAL AXIAL 12/10/2001 lumbar -0.4; hip -3.3 EGD, FLEXIBLE, DIAGNOSTIC 08/17/2016 normal/ESOPHAGOGASTRODUODENOSCOPY (EGD), FLEXIBLE, TRANSORAL, DIAGNOSTIC performed by Kandis Mahmood DO at ENDOSCOPY [facility] EGD, FLEXIBLE, DIAGNOSTIC 11/08/2022 hiatal hernia / ESOPHAGOGASTRODUODENOSCOPY (EGD), FLEXIBLE, TRANSORAL, DIAGNOSTIC performed by Jay Hollis MD at ENDOSCOPY [facility] EGD, FLEXIBLE, DIAGNOSTIC 11/13/2023 ESOPHAGOGASTRODUODENOSCOPY (EGD), FLEXIBLE, TRANSORAL, DIAGNOSTIC performed by Lucina Queen DOat ENDOSCOPY [facility] EGD, W/ENDOSCOPIC US 10/14/2019 benign pancreatic cyst / ESOPHAGOGASTRODUODENOSCOPY (EGD), FLEXIBLE, TRANSORAL, ENDOSCOPIC ULTRASOUND performed by Jay Hollis MD at [facility]COPY [facility] ELECTROPHYSIOLOGY EVALUATION 12/27/2017 3 CATHETER EP STUDY performed by Sully Vargas IV, MD at [facility] GRAIN TRIMMER PAP SCREEN 12/06/2010 Dr Alexandrea dye INSERT OR REPLACE OF PERIPHERAL OR GASTRIC NEUROSTIM PULSE GENERATOR OR CASING FLUID TENDER N/A 08/05/2020 PERIPH NEUROSTIM INSERT/REPLACE performed by Disha Melendez MD at [facility] INSERT OR REPLACE OF PERIPHERAL OR GASTRIC NEUROSTIM PULSE GENERATOR OR CASING FLUID TENDER N/A 08/15/2020 PERIPH NEUROSTIM INSERT/REPLACE performed by Disha Melendez MD at [place] [facility] IOF-DEXA SCAN/BONE MINERAL AX 09/25/2004 dexa scan: [...] by Jorge L Alex MD at OR [facility] REMOVE TONSILS & ADENOIDS, UNDER 12 [...] of Onset Diabetes Mother Heart Disorder Father NC age 75 Heart Disorder Brother NC Other (Other) Son Renal cancer Family Status [...] pain, constipation, diarrhea, nausea and vomiting. Musculoskeletal: Negative for arthralgias, gait problem and joint swelling. Skin: Positive for wound. Negative for color change, pallor and rash. OBJECTIVE: BP 110/68 (BP Site: Left Arm) | Pulse 80 | Temp 37.7 C (99.8 F) | Wt 71.4 kg (157 lb 4.8 oz) | SpO2 96% | BMI 26.58 kg/m | BSA 1.8 m PHYSICAL EXAM: [...] dry. Coloration: Skin is not pale. Findings: Erythema (overall improved on legs) present. No rash. Comments: Multiple leg wounds with dressings in place. Neurological: Mental Status: She is alert and oriented to person, place, and time. ASSESSMENT/PLAN: (K21.9) Gastro-esophageal reflux disease without esophagitis (primary encounter diagnosis) Plan: Pt will remain on current regimen. Famotidine seems to work well. (M48.062) Spinal stenosis of lumbar region with neurogenic claudication (M96.1) Post laminectomy syndrome Plan: predniSONE 10 MG Oral Tablet (Deltasone) Pt recently had Butrans increased. Will trial course of prednisone. She states her gabapentin cannot be increased per cardiology. Encouraged to f/u with her pain management team as well. (S81.810D) Open wound of right lower extremity, subsequent encounter Plan: Pt will f/u with wound clinic. Remain on antibiotics until finished. Continue with dressing changes. Follow-up: 1 months Total time today including reviewing chart before the visit, pertinent labs, imaging reports, face to face time, and documentation time was 34 minutes. Candice Mcnair DO documented in this encounter Plan of Treatment Upcoming Encounters Date Type Department Care Team (Late st Contact Info) Description 03/26/2024 10:00 AM EST Office Visit Gastroenterology, [facility] [address] [facility] [place] [address] Rama Francois CRNP [address] [place] [address] 05/20/2024 11:00 AM EDT Imaging Radiology [facility] [facility] [address] [facility] [place] [address] 06/10/2024 11:10 AM EDT Office Visit Vascular Surgery, [facility] [address] [facility] [place] [address] Alvarez Newberry MD [address] [place] [address] 06/29/2024 1:30 PM EDT Office Visit Cardiology, [facility] [address] [facility] [place] [address] Sumeet eBrgeron MD 132 [facility] [place] [address] 10/22/2024 8:45 AM EDT Office Visit Dermatology [facility] [address] [facility] [place] [address] Babatunde Yanes MD [facility] [address] Scheduled Procedures Name Priority Associated Diagnoses Date/Ti me COLONOSCOPY FLEXIBLE PROXIMAL DIAGNOSTIC Recall History of colon polyps Health Maintenance Due Date Last Done Comments Adult Wellness Visit 04/14/2015 04/14/2014 DXA Scan 09/29/2020 09/29/2018, 0404/2013, 06/10/2013 CKD PHOS USE SMARTSET 82516 12/21/2021 12/21/2020 Colonoscopy 12/30/2021 12/30/2018, 12/30/2018 Albumin/Creatinine Ratio 09/09/2024 09/10/2023 Depression Screening 09/09/2024 09/10/2023 CKD HGB USE SMARTSET 88106 12/04/202412/04, 11/28/2023, 09/10/2023, Additional history exists DTap/Tdap Vaccines (3 - Td or Tdap) 06/10/2033 06/11/2023, 05/14/2013, 11/19/2003 Pneumococcal Vaccine: 65+ Years Completed 04/16/2014, 07/30/2001 Zoster Vaccines Completed 01/05/2019, 08/09, 08/29/2011 VITAMIN D LEVEL ONCE IN A LIFETIME-USE SMARTSET# [id number] Completed 09/10/2023 Diabetic Eye Exam Discontinued 09/17/2023, [...] this encounter Medical Devices Implanted Type Area Brand Inspector Device Identifier Shelf Expiration Date Model / Serial / Lot Lens 19.0 Mx60 - [id number] Implanted:Qty: 1 on 12/28/2015 by Jorge L Alex MD at OR [facility] Left: Eye [employer] : SURGICAL 02/07/2018 MX60-19.0 / [id number] / [id number] Lens 20.5 Mx60 - [id number] - [id number] Implanted:Qty: 1 on 01/25/2016 by Jorge L Alex MD at OR [facility] [employer] : SURGICAL 03/10/2018 MX60-20.5 / [id number] / [id number] Percutaneous Extension 2201bun - [id number] Implanted:Qty: 1 on 08/05/2020 by Disha Melendez MD [place] [facility] N/A: Buttocks [employer] 03/30/2022 9009 / / Kit Tined Lead - [id number] Implanted:Qty: 1 on 08/05/2020 by Disha Melendez MD at [place] [facility] N/A: Buttocks [employer] 07/16/2022 1201 / / Neurostimulator - [id number] Implanted:Qty: 1 on 08/15/2020 by Disha Melendez MD at [facility] Right: Back [employer] 11/26/2021 1101 / / documented as of this encounter Visit Diagnoses Diagnosis Gastro-esophageal reflux disease without esophagitis- Primary Esophageal reflux Spinal stenosis of lumbar region with neurogenic claudication Spinal stenosis, lumbar region, with neurogenic claudication Post laminectomy syndrome Postlaminectomy syndrome, unspecified region Open wound of right lower extremity, subsequent encounter documented in this encounter Advance Directives * [...] and were consensually agreed upon. Care Teams House Mover Helper Relationship Specialty Start Date End Date Candice Mcnair DO [address] [place] [address] PCP - General Family Medicine 09/09/23 documented as of this encounter"
--- OUTSIDE RECORDS SUMMARY | 2024-01-01 17:39 | External Medical Summary | Summary of Care ---
Author Name Unknown Organization [facility] Address [address] [place] [address] Phone [phone] Care Team Providers Care Shot Fireman Name Role Phone DarinCandice diaz Jose Miguel SOLANO Primary Care Provider [phone] Encounter Details Date Type Department Care Team (Latest Contact Info) Description 12/20/2023 2:15 PM EDT - 12/20/2023 2:19 PM EDT Hospital Encounter Radiology Film File [address] [place] [address] Discharge Disposition: Home - Self Care Allergies [...] as of this encounter (statuses as of 12/25/2023) Medications Medication Sig Dispensed Refills Start Date [...] 24 Hour (Imdur)Indications: Coronary artery disease of un[place] artery of [place] heart with stable angina pectoris (HCC) Take [...] for 2 days 30 Tablet 12/19/2023 Active documented as of this encounter (statuses as of 12/25/2023) Active Problems Problem Noted Date Diagnosed Date Rheumatoid arthritis with rh eumatoid factor of multiple sites without organ or systems involvement 09/10/2023 Opioid dependence, uncomplicated 04/10/2023 Atherosclerosis of unga co ronary artery without angina pectoris 04/10/2023 [...] artery disease of n ative artery of unga heart with stable angina pectoris 08/21/2019 Gastro-esophageal [...] as of this encounter (statuses as of 12/25/2023) Resolved Problems Problem Noted Date Diagnosed Date [...] artery disease) 10/31/2011 11/06/2020 [employer] Other*[id number] 10/31/2011 04/17/2016 Overview: Study Title: Genomic Markers for Patients with Cardiovascular Disease Project # [id number] Metal Control Worker: Yasemin Timmons MD [phone] [facility] 10/15/2011 01/27/2017 Dyslipidemia, goal to be determined 02/15/2009 09/26/2013 Overview: Per Lipid Taxonomy. Other allergic rhinitis 08/08/200103/2019 Overview: ICD-10 update of inactive term Acute. PURE HYPERCHOLESTEROLEM 10/30/200010/2008 Overview: Per Lipid Taxonomy. documented as of this encounter (statuses as of 12/25/2023) Immunizations Name Administration Dates Next Due COVID-19 [...] Care Team (Late st Contact Info) Description 12/25/2023 1:50 PM EDT Office Visit Vascular Surgery, [facility] [address] [place] [address] Alvarez Newberry MD [address] [facility] [place] [address] 03/26/2024 10:00 AM EST Office Visit Gastroenterology, [facility] [address] [facility] [place] [address] Rama Francois CRNP [address] [place] [address] 06/29/2024 1:30 PM EDT Office Visit Cardiology, [facility] [address] [place] [address] Sumeet Bergeron MD [address] [place] [address] 10/22/2024 8:45 AM EDT Office Visit Dermatology [facility] [address] [place] [address] Babatunde Yanes MD [address] [place] [address] Scheduled Procedures Name Priority Associated Diagnoses Date/Ti me COLONOSCOPY FLEXIBLE PROXIMAL DIAGNOSTIC Recall History of colon polyps Health Maintenance Due Date Last Done Comments Adult Wellness Visit 04/14/2015 04/14/2014 DXA Scan 09/29/2020 09/29/2018, 0404/2013, 06/10/2013 CKD PHOS USE SMARTSET 17138 12/21/2021 12/21/2020 Colonoscopy 12/30/2021 12/30/2018, 12/30/2018 Albumin/Creatinine Ratio 09/09/2024 09/10/2023 Depression Screening 09/09/2024 09/10/2023 CKD HGB USE SMARTSET 72866 12/04/202412/04, 11/28/2023, 09/10/2023, Additional history exists DTap/Tdap Vaccines (3 - Td or Tdap) 06/10/2033 06/11/2023, 05/14/2013, 11/19/2003 Pneumococcal Vaccine: 65+ Years Completed 04/16/2014, 07/30/2001 Zoster Vaccines Completed 01/05/2019, 08/09, 08/29/2011 VITAMIN D LEVEL ONCE IN A LIFETIME-USE SMARTSET# [id number] Completed 09/10/2023 Diabetic Eye Exam Discontinued 09/17/2023, [...] this encounter Medical Devices Implanted Type Area Aircraft Inspector Device Identifier Shelf Expiration Date Model / Serial / Lot Lens 19.0 Mx60 - [id number] Implanted:Qty: 1 on 12/28/2015 by Jorge L Alex MD at OR [facility] Left: Eye [employer] : SURGICAL 02/07/2018 MX60-19.0 / [id number] 7 / [id number] Lens 20.5 Mx60 - [id number] - [id number] Implanted:Qty: 1 on 01/25/2016 by Jorge L Alex MD at OR [facility] [employer] : SURGICAL 03/10/2018 MX60-20.5 / [id number] / [id number] Percutaneous Extension 2201bun - [id number] Implanted:Qty: 1 on 08/05/2020 by Disha Melendez MD [place] [facility] [place]/A: Buttocks [employer] 03/30/2022 9009 / / Kit Tined Lead - [id number] Implanted:Qty: 1 on 08/05/2020 by Disha Melendez MD [place] [facility] [place]/A: Buttocks [employer] 07/16/2022 1201 / / Neurostimulator - [id number] Implanted:Qty: 1 on 08/15/2020 by Disha Melendez MD [place] [facility] Right: Back [employer] 11/26/2021 1101 / / documented as of this encounter Procedures Procedure Name Priority Date/Time Associated Diagnosis Comments RADIOLOGY EXAM - CT (IMAGES ONLY, NO REPORT) Routine 12/20/2023 2:15 PM EDT documented in this encounter Results * RADIOLOGY EXAM - CT (IMAGES ONLY, NO REPORT) (12/20/2023 2:15 PM EDT) 12/20/2023 2:13 PM EDT Narrative Scheduling, Silent - 12/24/2023 4:28 PM EDT This is an imaging study not interpreted or resulted by a [facility]. Alvarez Newberry MD RAD CT documented in this encounter Advance Directives * [...] and were consensually agreed upon. Care Teams Shot Fireman Relationship Specialty Start Date End Date Candice Mcnair DO [address] [place] [address], [place] [address] PCP - General Family Medicine 09/09/23 documented as of this encounter
--- OUTSIDE RECORDS SUMMARY | 2024-01-01 17:39 | External Medical Summary | Summary of Care ---
Author Name Unknown Organization [facility] Address [address] [place] [address] Phone [phone] Care Team Providers Care Exhibition Specialist Name Role Phone Candice Mcnair DO Primary Care Provider Reason for Visit * Reason Onset Date Comments Information 12/23/202312/23 Encounter Details Date Type Department Care Team (Late st Contact Info) Description 12/23/2023 Telephone Family Practice [address] [place] [address] [place] [phone] Candice Mcnair [address] [place] [address] Information (12/22, 12/23) Allergies Active Allergy Reactions Criticality Noted Date Comments Codeine Nausea/vomiting 03/23/2014 Hydroxychloroquine Rash 07/18/2021 Patient reported red itchy rash to neck after taking medication for 1 day Lisinopril Cough 12/09/2009 Pregabalin Edema Other 09/07/2016 Edema in the feet Morphine Anaphylaxis High 04/10/2011 Shrimp Flavor Nausea/vomiting 12/28/2015 Sulfa Antibiotics Nausea/vomiting 08/09/2000 Adhesive Tape Itching 08/25/2014 documented as of this encounter (statuses as of 12/30/2023) Medications Medication Sig Dispensed Refills Start Date [...] 24 Hour (Imdur)Indication s: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) Take [...] 90 Tablet 1 4 12/24/19 24 Discontinued documented as of this encounter (statuses as of 12/30/2023) Active Problems Problem Noted Date Diagnosed Date Asymptomatic bilateral carotid artery stenosis 1 Rheumatoid arthritis with rh eumatoid factor of multiple sites without organ or systems involvement 09/10/2023 Opioid dependence, uncomplicated 04/10/2023 Atherosclerosis of alturas co ronary artery without angina pectoris 04/10/2023 [...] artery disease of n ative artery of alturas heart with stable angina pectoris 08/21/2019 Gastro-esophageal [...] as of this encounter (statuses as of 12/30/2023) Resolved Problems Problem Noted Date Diagnosed Date [...] artery disease) 10/31/2011 11/06/2020 [employer] Other*[id number] 10/31/2011 04/17/2016 Overview: Study Title: Genomic Markers for Patients with Cardiovascular Disease Project # [id number] Fishing Rod Marker: Yasemin Timmons MD [phone] Dyspnea 10/15/2011 01/27/2017 Dyslipidemia, goal to be determined 02/15/2009 09/26/2013 Overview: Per Lipid Taxonomy. Other allergic rhinitis 08/08/200103/2019 Overview: ICD-10 update of inactive term Acute. PURE HYPERCHOLESTEROLEM 10/30/200010/2008 Overview: Per Lipid Taxonomy. documented as of this encounter (statuses as of 12/30/2023) Immunizations Name Administration Dates Next Due COVID-19 mRNA, LNP-s, No Pre serve, 2-Dose Series (Moderna) 05/04/2020,04/04/2020 COVID-19, MRNA-LNP, 24-25, P R, 30MCG/0.3ML, IM, 12YRS AND ABOVE ([facility]) 12/13/2023 COVID-19, mRNA, LNP-s, PF, B ooster, [...] encounter Miscellaneous Notes * Telephone Encounter - Candice Mcnair DO - 12/30/2023 7:07 AM EDT Pt scheduled 12/30. * Telephone Encounter - Maude Coombs LPN - 12/25/2023 3:23 PM EDT Called and spoke Sunita, states she is doing fine. Did see cardiology as well as vascular surgery Will be scheduled beginning of January for back surgery Would you like to see patient? She states cardio and vascular gave her go ahead. * Telephone Encounter - Maude Coombs LPN - 12/24/2023 1:58 PM EDT Called, left message for patient to return call. Thank you * Telephone Encounter - Maude Coombs LPN - 12/23/2023 3:13 PM EDT Emergency Department Follow Up: When was patient seen: Which ED: [facility] What were they seen for: visual disturbances and confusion What testing did they have done: cxr, lab work, ct scan , EKG and xray What did ED think was wrong (dx): carotid artery disease Any new medications prescribed: How is patient feeling today: Patient concerns today: Called, left message for patient to return call. Will review how patient is feeling, and any concerns. Is scheduled with cardiology tomorrow and 12/[address] Mcnair. Thank you documented in this encounter Plan of Treatment Upcoming Encounters Date Type Department Care Team (Late st Contact Info) Description 12/31/2023 1:00 PM EDT Office Visit Family Practice [address] [place] [address] [place] [address] Candice Mcnair, [address] [place] [address] 03/26/2024 10:00 AM EST Office Visit Gastroenterology, [facility] [address] [address] Rama Francois CRNP 132 [place] [address] 05/20/2024 11:00 AM EDT Imaging Radiology [facility] 1st [facility] [address] [place] [address] 06/10/2024 11:10 AM EDT Office Visit Vascular Surgery, [facility] [address] [place] [address] Alvarez Newberry MD [address] [place] [address] 06/29/2024 1:30 PM EDT Office Visit Cardiology, [facility] [address] [place] [address] Sumeet Bergeron MD [address] [place] [place] [address] 10/22/2024 8:45 AM EDT [facility] [address] [place] [address] Babatunde Yanes MD [address] [place] [address] Scheduled Procedures Name Priority Associated Diagnoses Date/Ti me COLONOSCOPY FLEXIBLE PROXIMAL DIAGNOSTIC Recall History of colon polyps Health Maintenance Due Date Last Done Comments Adult Wellness Visit 04/14/2015 04/14/2014 DXA Scan 09/29/2020 09/29/2018, 04/04/2013, 06/10/2013 CKD PHOS USE SMARTSET 83429 12/21/2021 12/21/2020 Colonoscopy 12/30/2021 12/30/2018, 12/30/2018 Albumin/Creatinine Ratio 09/09/2024 09/10/2023 Depression Screening 09/09/2024 09/10/2023 CKD HGB USE SMARTSET 27804 12/04/202412/04, 11/28/2023, 09/10/2023, Additional history exists DTap/Tdap Vaccines (3 - Td or Tdap) 06/10/2033 06/11/2023, 05/14/2013, 11/19/2003 Pneumococcal Vaccine: 65+ Years Completed 04/16/2014, 07/30/2001 Zoster Vaccines Completed 01/05/2019, 08/09, 08/29/2011 VITAMIN D LEVEL ONCE IN A LIFETIME-USE SMARTSET# [id number] Completed 09/10/2023 Diabetic Eye Exam Discontinued 09/17/2023, [...] this encounter Medical Devices Implanted Type Area Machine Turner Device Identifier Shelf Expiration Date Model / Serial / Lot Lens 19.0 Mx60 - [id number] Implanted:Qty: 1 on 12/28/2015 by Jorge L Alex MD at OR [facility] Left: Eye [employer] : SURGICAL 02/07/2018 MX60-19.0 / [id number] / [id number] Lens 20.5 Mx60 - [id number] - [id number] Implanted:Qty: 1 on 01/25/2016 by Jorge L Alex MD at OR [facility] BA[employer]CH [employer] LOMB : SURGICAL 03/10/2018 MX60-20.5 / [id number] / [id number] Percutaneous Extension 2201bun - [id number] Implanted:Qty: 1 on 08/05/2020 by Disha Melendez MD at [place] [facility] N/A: Buttocks [employer] 03/30/2022 9009 / / Kit Tined Lead - [id number] Implanted:Qty: 1 on 08/05/2020 by Disha Melendez MD at [place] [facility] N/A: Buttocks [employer] 07/16/2022 1201 / / Neurostimulator - [id number] Implanted:Qty: 1 on 08/15/2020 by Disha Melendez MD at [place] [facility] Right: Back [employer] 11/26/2021 1101 [...] and were consensually agreed upon. Care Teams Exhibition Specialist Relationship Specialty Start Date End Date Candice Mcnair DO [address] [facility] [address] PCP - General Family Medicine 09/09/23 documented as of this encounter
--- OUTSIDE RECORDS SUMMARY | 2024-01-01 17:39 | External Medical Summary | Summary of Care ---
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] Dyslipidemia Pancreatic cyst 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) Gastro-esophageal reflux disease without esophagitis Post laminectomy syndrome Chronic kidney disease, stage 3a (HCC) Compression fracture of T12 vertebra with routine healing High risk for fracture due to osteoporosis by DEXA scan Overweight (BMI 25.0-29.9) Immunodeficiency due to drugs (HCC) Sacroiliitis, not elsewhere classified (HCC) Opioid dependence, uncomplicated (HCC) Atherosclerosis of hoh coronary artery without angina pectoris Rheumatoid arthritis [...] 10/15/2011 GENERAL OSTEOARTHROSIS 10/30/2000 [employer] Other*[id number] 10/31/2011 High risk for fracture due to [...] performed by Jay Hollis MD at ENDOSCOPY [facility] COLONOSCOPY, GI REFERRAL OP 05/10/2003 Normal exam.Repeat every 10 years. CORONARY ANGIOGRAPHY W/LEFT HEART CATH 10/31/2011 CORONARY ANGIOGRAPHY W/LEFT HEART CATH performed by Medardo Castro MD at [facility] DEXA SCAN/BONE MINERAL AXIAL 12/10/2001 lumbar -0.4; hip -3.3 EGD, FLEXIBLE, DIAGNOSTIC 08/17/2016 normal/ESOPHAGOGASTRODUODENOSCOPY (EGD), FLEXIBLE, TRANSORAL, DIAGNOSTIC performed by Kandis Mahmood DO at ENDOSCOPY [facility] EGD, FLEXIBLE, DIAGNOSTIC 11/08/2022 hiatal hernia / ESOPHAGOGASTRODUODENOSCOPY (EGD), FLEXIBLE, TRANSORAL, DIAGNOSTIC performed by Jay Hollis MD at ENDOSCOPY [facility] EGD, FLEXIBLE, DIAGNOSTIC 11/13/2023 ESOPHAGOGASTRODUODENOSCOPY (EGD), FLEXIBLE, TRANSORAL, DIAGNOSTIC performed by Lucina Queen DOat ENDOSCOPY [facility] EGD, W/ENDOSCOPIC US 10/14/2019 benign pancreatic cyst / ESOPHAGOGASTRODUODENOSCOPY (EGD), FLEXIBLE, TRANSORAL, ENDOSCOPIC ULTRASOUND performed by Jay Hollis MD at ENDOSCOPY [facility] ELECTROPHYSIOLOGY EVALUATION 12/27/2017 3 CATHETER EP STUDY performed by Sully Vargas IV, MD at [facility] FLUID JET CUTTER OPERATOR PAP SCREEN 12/06/2010 Dr Alexandrea dye INSERT OR REPLACE OF PERIPHERAL OR GASTRIC NEUROSTIM PULSE GENERATOR OR FELLER HAND N/A 08/05/2020 PERIPH NEUROSTIM INSERT/REPLACE performed by Disha Melendez MD at [facility] INSERT OR REPLACE OF PERIPHERAL OR GASTRIC NEUROSTIM PULSE GENERATOR OR FELLER HAND N/A 08/15/2020 PERIPH NEUROSTIM INSERT/REPLACE performed by Disha Melendez MD at OR [facility] IOF-DEXA SCAN/BONE MINERAL AX 09/25/2004 dexa scan: [...] by Jorge L Alex MD at OR [facility] REMOVE TONSILS & ADENOIDS, UNDER 12 [...] of Onset Diabetes Mother Heart Disorder Father MA age 75 Heart Disorder Brother MA Other (Other) Son Renal cancer Family Status [...] with her pain management team as well. ([phone]) Open wound of right lower extremity, subsequent [...] 12/31/2023 1:00 PM EDT Office Visit Family [facility] [address] [facility] [address] [place] [address] Candice Mcnair DO [address] [place] [address] 03/26/2024 10:00 AM EST Office Visit Gastroenterology, [facility] 132 [place] [address] Rama Francois CRNP 132 [facility] [address] 05/20/2024 11:00 AM EDT Imaging Radiology [facility] 1st [facility] [address] [facility] [place] [address] 06/10/2024 11:10 AM EDT Office Visit Vascular Surgery, [facility] [address] [facility] [place] [address] Alvarez Newberry MD [address] [place] [address] 06/29/2024 1:30 PM EDT Office Visit Cardiology, [facility] [address] [facility] [place] [address] Sumeet Bergeron MD 132 [place] [address] 10/22/2024 8:45 AM EDT Office Visit Dermatology [facility] [address] [facility] [place] [facility] [place] [address] Babatunde Yanes MD [address] [facility] [place] [address] Scheduled Procedures Name Priority Associated Diagnoses Date/Ti me COLONOSCOPY FLEXIBLE PROXIMAL DIAGNOSTIC Recall History of colon polyps Health Maintenance Due Date Last Done Comments Adult Wellness Visit 04/14/2015 04/14/2014 DXA Scan 09/29/2020 09/29/2018, 0404/2013, 06/10/2013 CKD PHOS USE SMARTSET 53868 12/21/2021 12/21/2020 Colonoscopy 12/30/2021 12/30/2018, 12/30/2018 Albumin/Creatinine Ratio 09/09/2024 09/10/2023 Depression Screening 09/09/2024 09/10/2023 CKD HGB USE SMARTSET 26052 12/04/202412/04, 11/28/2023, 09/10/2023, Additional history exists DTap/Tdap Vaccines (3 - Td or Tdap) 06/10/2033 06/11/2023, 05/14/2013, 11/19/2003 Pneumococcal Vaccine: 65+ Years Completed 04/16/2014, 07/30/2001 Zoster Vaccines Completed 01/05/2019, 08/09, 08/29/2011 VITAMIN D LEVEL ONCE IN A LIFETIME-USE SMARTSET# [id number] Completed 09/10/2023 Diabetic Eye Exam Discontinued 09/17/2023, [...] this encounter Medical Devices Implanted Type Area [employer] Linux Engineer Device Identifier Shelf Expiration Date Model / Serial / Lot Lens 19.0 Mx60 - [id number] Implanted:Qty: 1 on 12/28/2015 by Jorge L Alex MD at OR [facility] Left: Eye [employer] : SURGICAL 02/07/2018 MX60-19.0 / [id number] / [id number] Lens 20.5 Mx60 - [id number] - [id number] Implanted:Qty: 1 on 01/25/2016 by Jorge L Alex MD at OR [facility] BA[employer]CH [employer] LOMB : SURGICAL 03/10/2018 MX60-20.5 / [id number] / [id number] Percutaneous Extension 2201bun - [id number] Implanted:Qty: 1 on 08/05/2020 by Disha Melendez MD at OR [facility] N/A: Buttocks [employer] 03/30/2022 9009 / / Kit Tined Lead - [id number] Implanted:Qty: 1 on 08/05/2020 by Disha Melendez MD at OR [facility] N/A: Buttocks [employer] 07/16/2022 1201 / / Neurostimulator - [id number] Implanted:Qty: 1 on 08/15/2020 by Disha Melendez MD at OR [facility] Right: Back [employer] MODULATION [...] and were consensually agreed upon. Care Teams Fishing Boat Captain Relationship Specialty Start Date End Date Candice Mcnair DO [address] [place] [address], [place] [address] PCP - General Family Medicine 09/09/23 documented as of this encounter"
--- OUTSIDE RECORDS SUMMARY | 2024-01-01 17:39 | External Medical Summary | Summary of Care ---
Author Name Unknown Organization [facility] Address [address] [place] [address] Phone [phone] Care Team Providers Care Advance Scout Name Role Phone ZuleymamarciaCandice diaz Jose Miguel SOLANO Primary Care Provider [phone] Reason for Visit * Reason Comments Pre-op Clearance Encounter Details Date Type Department Care Team (Latest Contact Info) Description 12/24/2023 11:30 AM EDT Office Visit Cardiology, [facility] [address] [facility] [place] [address] Ryan Bhandari PA-C [address] [facility] [address] HTN, goal below 130/80*; Infrarenal abdominal aortic aneurysm (AAA) without rupture (HCC); Coronary artery disease of [place] artery of [place] heart with stable angina pectoris (HCC); Paroxysmal VT (HCC); Pre-operative cardiovascular examination Allergies Active Allergy Reactions Criticality Noted Date [...] 24 Hour (Imdur)Indication s:Coronary artery disease of [place] artery of [place] heart with stable angina pectoris (HCC) Take [...] 09/10/2023 Opioid dependence, uncomplicated 04/10/2023 Atherosclerosis of [place] co ronary artery without angina pectoris 04/10/2023 [...] artery disease of n ative artery of [place] heart with stable angina pectoris 08/21/2019 Gastro-esophageal [...] artery disease) 10/31/2011 11/06/2020 [employer] Other*[id number] 10/31/2011 04/17/2016 Overview: Study Title: Genomic Markers for Patients with Cardiovascular Disease Project # [id number] Veneer Patcher: Yasemin Timmons MD [phone] [facility] 10/15/2011 01/27/2017 Dyslipidemia, goal to be [...] P R, 30MCG/0.3ML, IM, 12YRS AND ABOVE (Loopster-ComirnatTrusted Opinion) 12/13/2023 COVID-19, mRNA, LNP-s, PF, B ooster, [...] 03/11/1975 Smokeless Tobacco: Never Tobacco Cessation:Counseling Given: Not Answered Comments:No passive smoke exposure Alcohol Use Standard [...] Sign Reading Time Taken Comments Blood Pressure 130/74 12/24/2023 11:25 AM EDT Pulse 70 12/24/2023 11:25 AM EDT Temperature - - Respiratory Rate - - Oxygen Saturation 92% 12/24/2023 11:25 AM EDT Inhaled Oxygen Concentration - - Weight 71.7 kg (158 lb) 12/24/2023 11:25 AM EDT Height - - Body Mass Index 26.7 12/13/2023 1:28 PM EDT documented in this encounter Progress Notes * Ryan Bhandari PA-C - 12/24/2023 11:36 AM EDT SUBJECTIVE: Sunita Thomas is a 88 year old female followed by Dr. Bergeron. Ongoing cardiac and medical issues include: 1. Atherosclerotic coronary disease with prior anterior myocardial infarction in January of 2009 with stenting of the left anterior descending. 2. Recurrent angina pectoris with subsequent repeat coronary intervention with stenting of the mid to distal LAD in October of 2011, receiving drug-eluting stent. 3. Hyperlipidemia. 4. Chronic rheumatoid arthritis on immunosuppressive therapy. 5. History of prior lumbar laminectomy in November of 2014 with chronic postoperative pain, post-laminectomy syndrome, peripheral neuropathy 6: History of syncopal event, May 2017. 7. Nonsustained ventricular tachycardia on event monitor 8. EP study negative for inducible arrhythmia December 27, 2017 with associated loop recorder implantation 9. Hospitalization October 2020 following a fall with multiple contusions and COVID pneumonitis 10. Distal abdominal aortic aneurysm with ulcer 11. Bilateral carotid artery disease 12. Lower extremity wounds, followed by [facility] Hospitalized in November with ambulatory dysfunction, leg weakness, lower extremity cellulitis, acute on chronic renal dysfunction Cardiology consultation obtained at that time for preoperative management prior to lumbar spine intervention, incidentally found to have an elevated troponin EKG without acute ischemic change. Patient without overt angina. Echocardiography revealed preserved LV systolic function without wall motion abnormality or significant valvular heart disease. Medical management recommended with aspirin, statin, beta-irlanda, long-acting nitrates. Patient felt to be at leasta moderate perioperative risk in regards to spine surgery no further cardiac testing or workup feltto be indicated. Patient following with the [facility] regarding bilateral lower extremity wounds On December 20, 2023 patient was evaluated at the [facility] ER due to an episode of confusion with hallucinations, without loss of consciousness/syncope. Imaging included CTA of the neck revealing severe stenosis at the left carotid bifurcation due to extensive calcified atherosclerotic plaque resulting in 80 to 90 % stenosis of the distal left common carotid artery and the proximal left internal and external carotid arteries. Mild stenosis seen at the origin of the right internal carotid artery. Mild nonspecific ground-glass opacities noted within the lung apices on CTA of the neck with chest x-ray revealing linear left lung density suggestive of atelectasis or scarring, without pulmonary edema. Vascular Surgery follow-up advised. Patient previously evaluated by Dr. Newberry of [facility] in May of 2023 Patient presents today for preop clearance prior to lumbar spine intervention by Dr. Rancho [facility] on January 14, 2024. Accompanied by [id number]-[id number]. No further episodes of confusion or hallucination. It is difficult to discern by history today whether or not patienttook an unknown pain medication around the time of the confusion episode. She does not believe she h as recently taking clonazepam either. No fevers. No chills/rigors. No night sweats. No change in appetite. No rash. No dysuria or hematuria. No chest pain. No palpitations. Stable shortness of breath. No near syncope or syncope. No melena or hematochezia. Patient Active Problem List Diagnosis Generalized osteoarthritis Arthritis, rheumatoid (HCC) Old myocardial infarct S/P angioplasty with stent HTN, goal below 130/80 Paroxysmal VT (HCC) Status post placement of implantable loop recorder AAA (abdominal aortic aneurysm) (HCC) Chronic constipation Supraventricular tachycardia (HCC) Dyslipidemia Pancreatic cyst Coronary artery disease of [place] artery of [place] heart with stable angina pectoris (HCC) Gastro-esophageal reflux disease without esophagitis Post laminectomy syndrome Chronic kidney disease, stage 3a (HCC) Compression fracture of T12 vertebra with routine healing High risk for fracture due to osteoporosis by DEXA scan Overweight (BMI 25.0-29.9) Immunodeficiency due to drugs (HCC) Sacroiliitis, not elsewhere classified (HCC) Opioid dependence, uncomplicated (HCC) Atherosclerosis of [place] coronary artery without angina pectoris Rheumatoid arthritis with rheumatoid factor of multiple sites without organ or systems involvement (HCC) Past Medical History: Diagnosis Date ALLERGIC RHINITIS NEC 08/08/2001 Arthritis, rheumatoid (HCC) CAD (coronary artery disease) 10/31/2011 Compression fracture of T12 vertebra with routine healing 07/09/2021 Dyspnea 10/15/2011 GENERAL OSTEOARTHROSIS 10/30/2000 [employer] Other*[id number] 10/31/2011 High risk for fracture due to [...] performed by Jay Hollis MD at ENDOSCOPY [facility] COLONOSCOPY, GI REFERRAL OP 05/10/2003 Normal exam.Repeat every 10 years. CORONARY ANGIOGRAPHY W/LEFT HEART CATH 10/31/2011 CORONARY ANGIOGRAPHY W/LEFT HEART CATH performed by Medardo Castro MD at [facility] DEXA SCAN/BONE MINERAL AXIAL 12/10/2001 lumbar -0.4; hip -3.3 EGD, FLEXIBLE, DIAGNOSTIC 08/17/2016 normal/ESOPHAGOGASTRODUODENOSCOPY (EGD), FLEXIBLE, TRANSORAL, DIAGNOSTIC performed by Kandis Mahmood DO at [facility]COPY [facility] EGD, FLEXIBLE, DIAGNOSTIC 11/08/2022 hiatal hernia / ESOPHAGOGASTRODUODENOSCOPY (EGD), FLEXIBLE, TRANSORAL, DIAGNOSTIC performed by Jay Hollis MD at [facility]COPY [facility] EGD, FLEXIBLE, DIAGNOSTIC 11/13/2023 ESOPHAGOGASTRODUODENOSCOPY (EGD), FLEXIBLE, TRANSORAL, DIAGNOSTIC performed by Lucina Queen DOat ENDOSCOPY [facility] EGD, W/ENDOSCOPIC US 10/14/2019 benign pancreatic cyst / ESOPHAGOGASTRODUODENOSCOPY (EGD), FLEXIBLE, TRANSORAL, ENDOSCOPIC ULTRASOUND performed by Jay Hollis MD at [facility]COPY [facility] ELECTROPHYSIOLOGY EVALUATION 12/27/2017 3 CATHETER EP STUDY performed by Sully Vargas IV, MD at [facility] SIZING SPRAYER PAP SCREEN 12/06/2010 Dr Alexandrea dye INSERT OR REPLACE OF PERIPHERAL OR GASTRIC NEUROSTIM PULSE GENERATOR OR VACUUM FILTER OPERATOR N/A 08/05/2020 PERIPH NEUROSTIM INSERT/REPLACE performed by Disha Melendez MD at [facility] INSERT OR REPLACE OF PERIPHERAL OR GASTRIC NEUROSTIM PULSE GENERATOR OR VACUUM FILTER OPERATOR N/A 08/15/2020 PERIPH NEUROSTIM INSERT/REPLACE performed by Disha Melendez MD at OR [facility] IOF-DEXA SCAN/BONE MINERAL AX 09/25/2004 dexa scan: [...] by Jorge L Alex MD at OR [facility] REMOVE TONSILS & ADENOIDS, UNDER 12 Tonsillectomy/Adenoids,<12 Y/O REPAIR BLADDER & VAGINA, CYSTOCELE 01/18/2006 Cystocele Repair Anter. SHOULDER ARTHROSCOPY/REMOVE OBJECT 1968-left; 1971-right VAGINAL HYSTERECTOMY 01/18/2006 Dr juan pablo Lechuga Family History Problem Relation Name Age of Onset Diabetes Mother Heart Disorder Father MD age 75 Heart Disorder Brother MD Other (Other) Son Renal cancer Social History Socioeconomic History Marital status: Spouse name: Not on file Number of children: Not on file Years of education: Not on file Highest education level: Not on file Occupational History Not on file Tobacco Use Smoking status: Former Current packs/day: 0.00 Average packs/day: 1 pack/day for 20.0 years (20.0 ttl pk-yrs) Types: Cigarettes Start date: 03/11/1955 Quit date: 03/11/1975 Years since quittin.8 Smokeless tobacco: Never Tobacco comments: No passive smoke exposure Vaping Use Vaping status: Never Used Substance and Sexual Activity Alcohol use: Yes Comment: glass of wine Drug use: No Sexual activity: Not on file Other Topics Concern Service Not Asked Blood Transfusions Not Asked Caffeine Concern Not Asked Occupational Exposure Not Asked Hobby Hazards Not Asked Sleep Concern Not Asked Stress Concern Not Asked Weight Concern Not Asked Special Diet Not Asked Back Care Not Asked Exercise Not Asked Bike Helmet Not Asked Seat Belt Yes Self-Exams Not Asked Social History Narrative Not on file Social Determinants of Health Financial Resource Strain: Low Risk (04/09/2023) Financial Resource Strain Do you have any trouble paying for your medications, or do you think you might in the future? (Adult - for ages 18 years and over): No Does your family have trouble paying for medicine? (Household - for ages 0-17 years): Not on file Food Insecurity: No Food Insecurity (04/09/2023) Food Insecurity Do you need food for this week? (Adult - for ages 18 years and over): No Are you able to get enough food for your family? (Household - for ages 0-17 years): Not on file Does your family need food this week? (Household - for ages 0-17 years): Not on file Do you always have enough food for your family? (Household - for ages 0-17 years): Not on file Transportation Needs: No Transportation Needs (04/09/2023) Transportation Needs Do you have trouble getting a ride to medical visits or work? (Adult - for ages 18 years and over):Never True Does your family have a hard time getting a ride to doctors visits? (Household - for ages 0-17 years): Not on file Has lack of transportation kept you from medical appointments, meetings, work, or from getting things needed for daily living? Check all that apply. (Adult - for ages 18 years and over): Not on file Do you (or your family) have trouble finding or paying for a ride (transportation)? (Household - for ages 0-17 years): Not on file Social Connections: Socially Integrated (04/09/2023) Social Connections How often do you feel lonely or isolated from those around you? (Adult - for ages 18 years and over): Never Housing Stability: Low Risk (04/09/2023) Housing Stability Do you currently live in a snf or have no steady place to sleep at night? (Adult - for ages 18 years and over): No Do you think you are at risk of becoming homeless? (Adult - for ages 18 years and over): No Does your family worry about paying for your home or becoming homeless? (Household - for ages 0-17 years): Not on file Are you homeless or worried that you might be in the future? (Adult - for ages 18 years and over): Not on file Are you (or your family) homeless or worried that you might be in the future? (Household - for ages0-17 years): Not on file Complete Review of Systems is as stated above, negative, or noncontributory. Review of patient's allergies indicates: Allergen Reactions [...] 3 times a week. 34 Tab 5 Melatonin 3 MG Oral Capsule Take 1 [...] 3 Ocuvite-Lutein Oral Tablet Take by mouth. Famotidine 20 MG Oral Tablet (Pepcid) Take 1 Tablet by mouth every night at bedtime. 90 Tablet 3 Rosuvastatin Calcium 40 MG Oral Tablet (Crestor) TAKE 1 TABLET BY MOUTH EVERY DAY (Patient taking differently: Take 1 Tablet by mouth in the morning. Takes at bed .) 90 Tablet 2 Isosorbide Mononitrate ER 30 MG Oral Tablet Extended Release 24 Hour (Imdur) Take 1 Tablet by mouthin the morning. 90 Tablet 3 predniSONE 10 MG Oral Tablet (Deltasone) Take 5 tabs for 2 days, 4 tabs for 2 days, 3 tabs for 2 days, 2 tabs for 2 days 1 tab for 2 days 30 Tablet 0 amoxicillin (AMOXIL) 500 MG Capsule (Patient not taking: Reported on 12/24/2023) 4 iVIZIA Dry Eyes 0.5 % Ophthalmic Solution (Povidone (PF)) Instill into eye. Acetaminophen 500 MG Oral Tablet (Tylenol Extra Strength) Take 1 Tablet by mouth at bedtime as needed for Pain, Breakthrough. No current facility-administered medications for this visit. OBJECTIVE/PHYSICAL EXAMINATION: BP 130/74 | Pulse 70 | Wt 71.7 kg (158 lb) | SpO2 92% | BMI 26.70 kg/m | BSA 1.81 m Examined in a wheelchair General: Alert and oriented x3. No acute distress. Head: Normocephalic. Atraumatic. Eyes: Sclera clear Neck: Bilateral carotid bruits. No JVD. Lungs: Clear to auscultation Cardiac: RRR, Grade II/ systolic murmur. No rub. Abdomen: +BS. Extremities: Tissue paper thin skin with ecchymosis, healed wound on the left zabala, dressing not removed from the right lower extremity or dorsal aspect of the right hand. No cyanosis. Pulses intact 1+/4 Neuro: grossly normal exam Data: November 22, 2023 TTE interpretation summary ([facility]): Small LV cavity. Moderate concentric LVH. Normal LV wall motion. EF 65 to 70%. Grade 1 diastolic dysfunction. No significant valvular pathology. December 24, 2023 EKG: Sinus rhythm at 70 bpm with occasional premature ventricular complexes. ASSESSMENT: Preoperative Cardiology consultation prior to lumbar spine intervention on January 14, 2024 Recent ER evaluation with confusion and hallucination, undefined, ? associated with unknown pain medication versus other Chronic lower extremity wounds Chronic atherosclerotic coronary disease, class 2+ functional capacity Hypertension Hyperlipidemia, on therapy Polyneuropathy Rheumatoid arthritis on Xeljanz RECOMMENDATIONS/ PLAN: Options of management discussed with patient and [id number] who was present for the entire visit. Perioperative risk felt to be high, multifactorial. Further cardiac testing would not likely reduced perioperative risk. Patient notably recently hospitalized with cellulitis, with ongoing lower extremity wounds, more recently evaluated in the ER after an episode of confusion/hallucination leading to imaging revealing high-grade distal left common carotid artery and proximal left internal and external carotid artery stenosis observed. Recommend consideration for delaying lumbar intervention to allow for lower extremity wound healing and the carotid issue to be addressed as recommended at the [facility] ER. Will assist in arranging Vascular Surgery follow-up as requested.Recommend discontinuation of the unknown pain medication. Further evaluation for infection via blood cultures deferred. Once wounds and vascular issues are addressed, patient would be considered an ac ceptable, albeit still high, surgical risk. Aspirin should be held for the shortest period of time and resumed postoperatively when determined to be safe. Metoprolol and isosorbide should be continued without perioperative interruption. Furosemide should be held the morning of the procedure, resuming postoperatively as hemodynamics permit. Routine Cardiology follow-up as scheduled with Dr. Bergeron as needed with the undersigned in the interim. Ryan Bhandari PA-C Department of Cardiology I spent a total of 40-54 minutes (exact time 47 mins) on the date of service in preparation, delivery, and documentation of the care provided to Sunita Thomas excluding any time spent in the performance of separately billed services. This visit involved medical care services related to at least one serious condition or complex condition requiring ongoing care. This chart was completed in part utilizing [employer] Speech Voice Recognition Software. Grammatical errors, random word insertions, prounoun errors, and incomplete sentences are an occasional consequence of this system due to software limitations, ambient noise, and hardware issues. Any formal questions or concerns about the content, text, or information contained within the body of this dictation should be directly addressed to the provider for clarification. documented in this encounter Procedure Notes * Lester Gautam DO - 12/24/2023 11:39 AM EDTAssociated Order(s): EKG REASON FOR STUDY: pre op;pre op CONCLUSIONS: Sinus rhythm with occasional Premature ventricular complexes Otherwise normal ECG When compared with ECG of 06-Apr-2020 10:44, Nonspecific T wave abnormality now evident in Inferior leads Ventricular Rate: 70 Atrial Rate: 70 CT Interval: 156 QRS Duration: 88 QT/QTc: 398/429 ms P-R-T [place]: 55 : 42 : 10 degrees documented in this encounter Nursing Notes * Jazmyn Mosquera CMA - 12/24/2023 11:23 AM EDT Examination Room: 1 Name: Sunita Thomas Date of : (1935) Reason for Visit: pre op Interim Hospitalization(s): 12/19 Problems/Concerns: denied Chest Pain/SOB: denied My [facility] is a way you can talk to your provider online through e-mail. Would you like to sign up? I can activate it for you? ALREADY ACTIVE Patient was instructed to not get up on the exam table until directed and assisted by their provider; patient is to remain seated in the chair/ wheelchair/ exam table for fall prevention and safety reasons. Patient is aware to have assistance to step down off exam table with personnel. Patient voiced full comprehension of instructions. documented in this encounter Plan of Treatment Upcoming Encounters Date Type Department Care Team (Late st Contact Info) Description 03/26/2024 10:00 AM EST Office Visit Gastroenterology, [facility] [address] [facility] [place] [address] Rama Francois CRNP [address] [facility] [place] [address] 05/20/2024 11:00 AM EDT [facility] [address] [facility] [place] [address] 06/10/2024 11:10 AM EDT Office Visit Vascular Surgery, [facility] [address] [facility] [place] [address] Alvarez Newberry MD [address] [place] [address] 06/29/2024 1:30 PM EDT Office Visit Cardiology, [facility] [address] [facility] [place] [address] Sumeet Bergeron MD [address] [facility] [place] [address] 10/22/2024 8:45 AM EDT Office Visit Dermatology [facility] [address] [place] [address] Babatunde Yanes [facility] [address] Scheduled Procedures Name Priority Associated Diagnoses Date/Ti me COLONOSCOPY FLEXIBLE PROXIMAL DIAGNOSTIC Recall History of colon polyps Health Maintenance Due Date Last Done Comments Adult Wellness Visit 04/14/2015 04/14/2014 DXA Scan 09/29/2020 09/29/2018, 04/04/2013, 06/10/2013 CKD PHOS USE SMARTSET [id number] 12/21/2021 12/21/2020 Colonoscopy 12/30/2021 12/30/2018, 12/30/2018 Albumin/Creatinine Ratio 09/09/2024 09/10/2023 Depression Screening 09/09/2024 09/10/2023 CKD HGB USE SMARTSET [id number] 12/04/202412/04, 11/28/2023, 09/10/2023, Additional history exists DTap/Tdap Vaccines (3 - Td or Tdap) 06/10/2033 06/11/2023, 05/14/2013, 11/19/2003 Pneumococcal Vaccine: 65+ Years Completed 04/16/2014, 07/30/2001 Zoster Vaccines Completed 01/05/2019, 08/09, 08/29/2011 VITAMIN D LEVEL ONCE IN A LIFETIME-USE SMARTSET# [id number] Completed 09/10/2023 Diabetic Eye Exam Discontinued 09/17/2023, [...] this encounter Medical Devices Implanted Type Area Odd Ticket Clerk Device Identifier Shelf Expiration Date Model / Serial / Lot Lens 19.0 Mx60 - [id number] Implanted:Qty: 1 on 12/28/2015 by Jorge L Alex MD at OR [facility] Left: Eye [employer] : SURGICAL 02/07/2018 MX60-19.0 / [id number] / [id number] Lens 20.5 Mx60 - [id number] - [id number] Implanted:Qty: 1 on 01/25/2016 by Jorge L Alex MD at OR [facility] [employer] : SURGICAL 03/10/2018 MX60-20.5 / [id number] / [id number] Percutaneous Extension 2201bun - [id number] Implanted:Qty: 1 on 08/05/2020 by Disha Melendez MD at OR [facility] N/A: Buttocks [employer] 03/30/2022 [id number] / / Kit Tined Lead - [id number] Implanted:Qty: 1 on 08/05/2020 by Disha Melendez MD at OR [facility] N/A: Buttocks [employer] 07/16/2022 1201 / / Neurostimulator - [id number] Implanted:Qty: 1 on 08/15/2020 by Disha Melendez MD at OR [facility] Right: Back [employer] 11/26/2021 1101 / / documented as of this encounter Procedures Procedure Name Priority Date/Time Associated Diagnosis Comments CT ECG ROUTINE ECG W/LEAST 12 LDS I&R ONLY Routine 12/24/2023 11:39 AM EDT Pre-operative cardiovascular examination documented in this encounter Results * EKG (12/24/2023 11:39 AM EDT) 12/24/2023 11:3 9 AM EDT Narrative Procedure Note Lester Gautam DO - 12/24/2023 11:39 AM EDT REASON FOR STUDY: pre op;pre op CONCLUSIONS: Sinus rhythm with occasional Premature ventricular complexes Otherwise normal ECG When compared with ECG of 06-Apr-2020 10:44, Nonspecific T wave abnormality now evident in Inferior leads Ventricular Rate: 70 Atrial Rate: 70 CT Interval: 156 QRS Duration: 88 QT/QTc: 398/429 ms P-R-T [place]: 55 : 42 : 10 degrees Ryan Bhandari PA-C [facility] documented in this encounter Visit Diagnoses Diagnosis HTN, goal below 130/80- Primary Unspecified essential hypertension Infrarenal abdominal aortic aneurysm (AAA) without rupture (HCC) Coronary artery disease of [place] artery of [place] heart with stable angina pectoris (HCC) Paroxysmal VT (HCC) Paroxysmal ventricular tachycardia Pre-operative cardiovascular examination documented in this encounter Advance Directives * [...] and were consensually agreed upon. Care Teams Advance Scout Relationship Specialty Start Date End Date Candice Mcnair DO [address] [place] [address], [place] [address] PCP - General Family Medicine 09/09/23 documented as of this encounter"
--- OUTSIDE RECORDS SUMMARY | 2024-01-01 17:39 | External Medical Summary | Summary of Care ---
Author Name Unknown Organization [facility] Address [address] [place] [address] Phone [phone] Care Team Providers Care Bonding Machine Operator Name Role Phone Candice Mcnair Primary Care Provider + [phone] Reason for Referral * Precert (Within 10 days (routine)) - Authorized Specialty Diagnoses / Procedures Referred By Contac t Referred To Contact Radiology Diagnoses Infrarenal abdominal aortic aneurysm (AAA) without rupture (HCC) Procedures CTA ABD/PELVIS Alvarez Newberry MD [address] [place] [address] Referral ID Status Reason Start Date Expiration Date V isits Requested Visits Authorized [id number] Authorized 12/25/2023 999 999 Reason for Visit * Reason Comments Follow Up Encounter Details Date Type Department Care Team (Late st Contact Info) Description 12/25/2023 1:50 PM EDT Office Visit Vascular Surgery, [facility] [address] [place] [address] Alvarez Newberry MD [address] [place] [address] Asymptomatic bilateral carotid artery stenosis*; Infrarenal abdominal aortic aneurysm (AAA) without rupture [...] affected area. 15 g 5 04/01/2023 Active Additional Information Patient not taking.Reported on [...] 24 Hour (Imdur)Indications: Coronary artery disease of [place] artery of [place] heart with stable angina pectoris (HCC) Take [...] 09/10/2023 Opioid dependence, uncomplicated 04/10/2023 Atherosclerosis of [place] co ronary artery without angina pectoris 04/10/2023 [...] artery disease of n ative artery of [place] heart with stable angina pectoris 08/21/2019 Gastro-esophageal [...] artery disease) 10/31/2011 11/06/2020 [employer] Other*[id number] 10/31/2011 04/17/2016 Overview: Study Title: Genomic Markers for Patients with Cardiovascular Disease Project # [id number] [employer] Sales Representative: Yasemin Timmons MD [phone] [facility] 10/15/2011 01/27/2017 Dyslipidemia, goal to be determined [...] 03/11/1975 Smokeless Tobacco: Never Tobacco Cessation:Counseling Given: No Comments:No passive smoke exposure Alcohol Use Standard [...] No 04/09/2023 Does the household have a [facility] source of income? (Household - for ages [...] Sign Reading Time Taken Comments Blood Pressure 122/58 12/25/2023 1:47 PM EDT Pulse 71 12/25/2023 1:47 PM EDT Temperature 36.3 C (97.3 F) 12/25/2023 1:47 PM ED T Respiratory Rate - - Oxygen Saturation - - Inhaled Oxygen Concentration - - Weight 71.7 kg (158 lb) 12/25/2023 1:47 PM EDT p er patient Height - - Body Mass Index 26.7 12/13/2023 1:28 PM EDT documented in this encounter Progress Notes * Bharat Chase PA-C - 12/25/2023 1:50 PM EDT Date of Service: 12/25/2023 1:54 PM Sunita Thomas is a 88 year old female. Referring Physician: Fiona Stein DO Chief Complaint: Technically a new patient, but for different reason (AAA) On 12/20/23 patient was evaluated at the [facility] ER due to an episode of confusion with hallucinations, without loss of consciousness/syncope. CTA of the neck revealed severe stenosis at the left ICA bifurcation; 80 to 90% stenosis of the distal LCCA and the proximal left ICA and ECA. Mild stenosis seen at the origin of the ISAIAH CT of brain was w/out stroke Patient feels that she is completely resolved from her recent confusion symptoms of 12/19 Has BLE venous stasis, sees local Wound Care Due to have back surgery 01/14/24. Back surgeon requesting clearance, from a vascular standpoint, for surgery Presents with her Nilo HPI: Ms. Thomas presented in 2019 for the evaluation of AAA that was incidentally noted on Ct scan that was ordered for abdominal pain of the left lower quadrant. Incidental notation of 3.3 cm AAA. Former smoker quit 40 years ago Reports her has an aneurysm and they are too old, not having surgery ABDOMINAL AORTIC ANEURYSM: Patient denies any symptoms related to AAA. Patient's chronic low back pain is unchanged. Patient denies new abdominal pain. Size of aneurysm is 3.3 cm as detected by CT scan 12/18/18 Current Outpatient Medications Medication Sig Dispense Refill [...] MOUTH TWO TIMES DAILY 180 Tablet 3 Calcium-Vitamins C & D 500-10-250 MG-MG-UNIT Oral [...] tab for 2 days 30 Tablet 0 Triamcinolone Acetonide 0.1 % External Cream (Aristocort) Apply topically to affected area 2 times a day. To affected area. (Patient not taking: Reported on 12/25/2023) 15 g 5 No current facility-administered medications for this visit. 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 HTN, goal below 130/80 Paroxysmal VT (HCC) Status post placement of implantable loop recorder AAA (abdominal aortic aneurysm) ([facility]) Chronic constipation Supraventricular tachycardia (HCC) Dyslipidemia Pancreatic cyst Coronary artery disease of [place] artery of [place] heart with stable angina pectoris (HCC) Gastro-esophageal reflux disease without esophagitis Post laminectomy syndrome Chronic kidney disease, stage 3a (HCC) Compression fracture of T12 vertebra with routine healing High risk for fracture due to osteoporosis by DEXA scan Overweight (BMI 25.0-29.9) Immunodeficiency due to drugs (HCC) Sacroiliitis, not elsewhere classified (HCC) Opioid dependence, uncomplicated (HCC) Atherosclerosis of [place] coronary artery without angina pectoris Rheumatoid arthritis with rheumatoid factor of multiple sites without organ or systems involvement (HCC) Past Medical History: Diagnosis Date ALLERGIC RHINITIS NEC 08/08/2001 Arthritis, rheumatoid (HCC) CAD (coronary artery disease) 10/31/2011 Compression fracture of T12 vertebra with routine healing 07/09/2021 Dyspnea 10/15/2011 GENERAL OSTEOARTHROSIS 10/30/2000 [employer] Other*[id number] 10/31/2011 High risk for fracture due to [...] performed by Jay Hollis MD at ENDOSCOPY [facility] COLONOSCOPY, GI REFERRAL OP 05/10/2003 Normal exam.Repeat every 10 years. CORONARY ANGIOGRAPHY W/LEFT HEART CATH 10/31/2011 CORONARY ANGIOGRAPHY W/LEFT HEART CATH performed by Medardo Castro MD at [facility] DEXA SCAN/BONE MINERAL AXIAL 12/10/2001 lumbar -0.4; hip -3.3 EGD, FLEXIBLE, DIAGNOSTIC 08/17/2016 normal/ESOPHAGOGASTRODUODENOSCOPY (EGD), FLEXIBLE, TRANSORAL, DIAGNOSTIC performed by Kandis Mahmood DO at ENDOSCOPY [facility] EGD, FLEXIBLE, DIAGNOSTIC 11/08/2022 hiatal hernia / ESOPHAGOGASTRODUODENOSCOPY (EGD), FLEXIBLE, TRANSORAL, DIAGNOSTIC performed by Jay Hollis MD at ENDOSCOPY [facility] EGD, FLEXIBLE, DIAGNOSTIC 11/13/2023 ESOPHAGOGASTRODUODENOSCOPY (EGD), FLEXIBLE, TRANSORAL, DIAGNOSTIC performed by Lucina Queen DOat ENDOSCOPY [facility] EGD, W/ENDOSCOPIC US 10/14/2019 benign pancreatic cyst / ESOPHAGOGASTRODUODENOSCOPY (EGD), FLEXIBLE, TRANSORAL, ENDOSCOPIC ULTRASOUND performed by Jay Hollis MD at [facility]COPY [facility] ELECTROPHYSIOLOGY EVALUATION 12/27/2017 3 CATHETER EP STUDY performed by Sully Vargas IV, MD at [facility] SUPERVISOR LAUNDRY PAP SCREEN 12/06/2010 wnbradley, Dr Lechuga INSERT OR REPLACE OF PERIPHERAL OR GASTRIC NEUROSTIM PULSE GENERATOR OR BOTTOM PAINTER N/A 08/05/2020 PERIPH NEUROSTIM INSERT/REPLACE performed by Disha Melendez MD at [facility] INSERT OR REPLACE OF PERIPHERAL OR GASTRIC NEUROSTIM PULSE GENERATOR OR BOTTOM PAINTER N/A 08/15/2020 PERIPH NEUROSTIM INSERT/REPLACE performed by Disha Melendez MD at [place] [facility] IOF-DEXA SCAN/BONE MINERAL AX [...] #1101 PAP SCREEN 07/10/2006 PAP SCREEN 08/04/2008 wnl, Dr Lechuga REMOVE CATARACT, INSERT LENS PROSTH Right 01/25/2016 EXTRACAPSULAR CATARACT REMOVAL WITH INTRAOCULAR LENS performed by Jorge L Alex MD at OR [facility] REMOVE TONSILS & ADENOIDS, UNDER 12 Tonsillectomy/Adenoids,<12 Y/O REPAIR BLADDER & VAGINA, CYSTOCELE 01/18/2006 Cystocele Repair Anter. SHOULDER ARTHROSCOPY/REMOVE OBJECT 1969-left; 1971-right VAGINAL HYSTERECTOMY 01/18/2006 Dr juan pablo Lechuga Family History Problem Relation Name Age of Onset Diabetes Mother Heart Disorder Father NC age 75 Heart Disorder Brother NC Other (Other) Son Renal cancer Social History [...] Stability Do you currently live in a senior living or have no steady place to sleep [...] - for ages0-17 years): Not on file REVIEW OF SYSTEMS: Constitutional: Denies weight loss, Denies fever. Eyes: Denies double vision , Denies blurred vision . Ear, Nose, Throat and Mouth: denies decreased hearing. Cardiovascular: denies chest pains. Respiratory: denies shortness of breath. Gastrointestinal: denies melena. Genitourinary: denies hematuria. Musculoskeletal: reports arthritis, reports chronic low back pain. Right foot drop Skin: denies rash, denies skin cancer, denies ulcers. Neurological: denies TIA, denies CVA. Psychiatric: denies depression, denies anxiety. Endocrine: denies NIDDM, denies IDDM, reports hyperlipidemia. Hematologic: denies anemia, denies blood clotting problems. GENERAL MULTI-SYSTEM PHYSICAL EXAM: VITAL SIGNS: BP 122/58 (BP Site: Left Arm, BP Position: Sitting, BP Cuff Size: Regular) | Pulse 71 | Temp 36.3 C (97.3 F) (Tympanic) | Wt 71.7 kg (158 lb) Comment: per patient | BMI 26.70 kg/m | BSA 1.81 m GENERAL MULTI-SYSTEM PHYSICAL EXAM: GENERAL: Normal grooming habits, no acute distress and appears stated age. NECK: No masses. RESPIRATORY: CTA, nl effort CARDIOVASCULAR: RRR, no murmur GASTROINTESTINAL: no tenderness and protuberant. Abdominal aorta not palpable. LYMPHATIC: cervical lymph nodes normal. SKIN: no ulcers, no rash, no induration, capillary refill normal and no dependent rubor. Chronic venous stasis BLE PSYCHIATRIC: orientation to time, place and person normal and recent and remote memory normal. EYES: conjunctivae normal, eye lids normal, pupils normal and irises normal. NEUROLOGIC: Motor function intact PULSE SCALE: Carotid Right:----Bruit: No Left:----Bruit: Yes, very faint Radial Right: 3 Left: 3 Femoral Right: 2 Left: 2 Popliteal Right: 0 Left: 0 Dorsalis Pedis Right: 2 Left: 2 Posterior Tibial Right: 2 Left: 2 PULSE SCALE: 4=Aneurysmal; 3=Normal; 2=Diminished; 1=Barely Palpable; 0=Absent DIAGNOSTIC STUDIES: 12/20/23 CTA Neck [facility]: Heavily calcified high grade lesion of LCCA/LICA, non- obstructive calcifiedplaque of ISAIAH The above diagnostic images were directly visualized and independently interpreted by me on 12/25/2023 with results as above 12/20/23 CTA Neck ([facility] report): 1. Severe stenosis at the left carotid bifurcation due to extensive calcified atherosclerotic plaque. This results in 80-90% stenosis of the distal left common carotid artery and the proximal left internal and external carotid arteries. 2. Mild stenosis at the origin of the right internal carotid artery. 04/25/23 CT Abd/Pelvis: 4.0 cm AAA, RCIA 1.5 cm, LCIA 1.4 cm 12/20/23 CT Brain ([facility] report): There is no hemorrhage, mass effect, or evidence of acute territorial ischemia 01/29/22 CT Abd/Pelvis: 3.5 cm AAA 07/13/20 Carotid Duplex: ISAIAH 76/20, LICA 138/39, R vert UI, RSCA patent, L vert ante 12/18/18: CT scan abd/pelvis: 3.3 cm AAA heavy atherosclerosis of the aorta IMPRESSIONS: Asymptomatic 4.0 cm saccular AAA Asymptomatic less than 50% B/L carotid stenosis, on 2020 duplex Recent 2023 CTA Neck revealed 80-90% LCCA/LICA stenosis Former smoker CAD S/P PCI Dyslipidemia CKD Peripheral neuropathy Lumbar disc disease with right foot drop, s/p lumbar fixation PLAN: The patient was counseled regarding the pathophysiology and natural history of carotid disease, as well as the symptoms of CVA/TIA/amaurosis fugax. Patient's recent neuro event not related to her carotid vascular disease Patient has asymptomatic Left CCA/ICA high grade stenosis. What is of interest is that in 2020, patient had largely unremarkable carotid duplex, <50% LICA stenosis with strong upstroke on ICA waveforms The patient was counseled regarding the pathophysiology and natural history of abdominal aortic aneurysms, as well as the signs of rupture and the need to initiate emergency medical attention in thatsituation. OK, from vascular surgery standpoint, to have up-coming back surgery Continue ASA 81 mg for platelet inhibition/atherosclerosis Continue Crestor 40 mg for dyslipidemia/hyperlipidemia & pleiotropic benefits of statins RTC 6 months CTA Abd/Pelvis 1 wk prior The patient was seen and examined with Alvarez Newberry MD. Bharat Chase MPAS, PA-C Section of Vascular and Endovascular Surgery [address] [address] I have reviewed the advanced practitioner's documentation on the date of service referenced in note, and I agree with, and take responsibility for the plan of care. 88 year old female here for follow up of multiple issues prior to planned back surgery AAA - saccular aneurysm 4.5 cm last imaged. Do recommend repair, but she is not interested in considering this prior to back surgery. Given anatomy would have to size for ZFEN vs performing physicianmodified endografting. Will see her back in about 6 months with updated scan to discuss this further. WE DISCUSSED THAT IF SHE WERE TO RUPTURE, DUE TO HER ANATOMY SHE IS NOT A SURGICAL CANDIDATE FOR R EPAIR. SHE SHOULD NOT BE TRANSFERRED, SHE SHOULD BE MADE COMFORTABLE. Her and her are comfortable with this and agree. Carotid stenosis - discussed risk of stroke with severe carotid artery stenosis. Discussed that endarterectomy cuts this risk from 2% per year to 1% per year. She does not think that surgical risk isworth this risk reduction. [place] intervention for symptomatic disease. Will see her back in about 6 months. Alvarez Newberry MD Section of Vascular and Endovascular Surgery [place], [place] [id number] [phone] documented in this encounter Nursing Notes * Kaia Evangelista CMA - 12/25/2023 1:49 PM EDT Reviewed the option of transferring scripts to [facility] pharmacy with patient and / or family. Patient was instructed to not get up on the exam table/exam chair until directed and assisted by their provider; patient is to remain seated in the chair/ wheelchair/ exam table/ exam chair for fall prevention and safety reasons. Patient is aware to have assistance to step down off exam table/exam chair with personnel. Patient voiced full comprehension of instructions. Kaia Evangelista CMA documented in this encounter Plan of Treatment Upcoming Encounters Date Type Department Care Team (Late st Contact Info) Description 03/26/2024 10:00 AM EST Office Visit Gastroenterology, [facility] [address] [address] Rama Francois CRNP [address] [address] 05/20/2024 11:00 AM EDT Imaging Radiology [address] [place] [address] 06/10/2024 11:10 AM EDT Office Visit Vascular Surgery, [facility] [address] [place] [address] Alvarez Newberry MD [address] [place] [address] 06/29/2024 1:30 PM EDT Office Visit Cardiology, [facility] [address] [place] [address] Sumeet Bergeron MD [address] [place] [address] 10/22/2024 8:45 AM EDT Office Visit Dermatology [facility] [address] [place] [address] Babatunde Yanes MD [address] [place] [address] Scheduled Orders Name Type Priority Associated Diagnoses Orde r Schedule CTA ABD/PELVIS Medical Imaging Routine Infrarenal abdominal aortic aneurysm (AAA) without rupture (HCC) Ordered: 12/25/2023 Scheduled Procedures Name Priority Associated Diagnoses Date/Ti me COLONOSCOPY FLEXIBLE PROXIMAL DIAGNOSTIC Recall History of colon polyps Health Maintenance Due Date Last Done Comments Adult Wellness Visit 04/14/2015 04/14/2014 DXA Scan 09/29/2020 09/29/2018, 04/04/2013, 06/10/2013 CKD PHOS USE SMARTSET 59153 12/21/2021 12/21/2020 Colonoscopy 12/30/2021 12/30/2018, 12/30/2018 Albumin/Creatinine Ratio 09/09/2024 09/10/2023 Depression Screening 09/09/2024 09/10/2023 CKD HGB USE SMARTSET 02212 12/04/202412/04, 11/28/2023, 09/10/2023, Additional history exists DTap/Tdap Vaccines (3 - Td or Tdap) 06/10/2033 06/11/2023, 05/14/2013, 11/19/2003 Pneumococcal Vaccine: 65+ Years Completed 04/16/2014, 07/30/2001 Zoster Vaccines Completed 01/05/2019, 08/09, 08/29/2011 VITAMIN D LEVEL ONCE IN A LIFETIME-USE SMARTSET# [id number] Completed 09/10/2023 Diabetic Eye Exam Discontinued 09/17/2023, [...] this encounter Medical Devices Implanted Type Area Cleater Device Identifier Shelf Expiration Date Model / Serial / Lot Lens 19.0 Mx60 - [id number] Implanted:Qty: 1 on 12/28/2015 by Jorge L Alex MD at OR [facility] Left: Eye [employer] LOMB : SURGICAL 02/07/2018 MX60-19.0 / [id number] / [id number] Lens 20.5 Mx60 - [id number] - [id number] Implanted:Qty: 1 on 01/25/2016 by Jorge L Alex MD at OR [facility] BAUSCH & LOMB : SURGICAL 03/10/2018 MX60-20.5 / [id number] / [id number] Percutaneous Extension 2201bun - [id number] Implanted:Qty: 1 on 08/05/2020 by Disha Melendez MD at [place] [facility] N/A: Buttocks [employer] 03/30/2022 [id number] / / Kit Tined Lead - [id number] Implanted:Qty: 1 on 08/05/2020 by Disha Melendez MD at [place] [facility] N/A: Buttocks [employer] 07/16/2022 1201 / / Neurostimulator - [id number] Implanted:Qty: 1 on 08/15/2020 by Disha Melendez MD at [place] [facility] Right: Back [employer] 11/26/2021 1101 / / documented as of this encounter Visit Diagnoses Diagnosis Asymptomatic bilateral carotid artery stenosis- Primary Occlusion and stenosis of multiple and bilateral [...] and were consensually agreed upon. Care Teams Bonding Machine Operator Relationship Specialty Start Date End Date Candice Mcnair DO [address] [place] [address] PCP - General Family Medicine 09/09/23 documented as of this encounter"
--- OUTSIDE RECORDS SUMMARY | 2024-01-01 17:39 | External Medical Summary | Summary of Care ---
Author Name Unknown Organization [facility] Address [address] [place] [address] Phone [phone] Care Team Providers Care Medical Authorization Specialist Name Role Phone Candice Mcnair DO Primary Care Provider [phone] Reason for Visit * Reason Onset Date Comments Follow Up 12/27/2023 Encounter Details Date Type Department Care Team (Late st Contact Info) Description 12/27/2023 Telephone Family Practice [address] [facility] [address] [place] [id number] Candice Mcnair DO [address] [place], [place] [phone] Follow Up Allergies Active Allergy Reactions Criticality [...] 24 Hour (Imdur)Indications: Coronary artery disease of [place] artery of [place] heart with stable angina pectoris (HCC) Take [...] 09/10/2023 Opioid dependence, uncomplicated 04/10/2023 Atherosclerosis of [place] co ronary artery without angina pectoris 04/10/2023 [...] artery disease of n ative artery of [place] heart with stable angina pectoris 08/21/2019 Gastro-esophageal [...] artery disease) 10/31/2011 11/06/2020 [employer] Other*[id number] 10/31/2011 04/17/2016 Overview: Study Title: [employer] Markers for Patients with Cardiovascular Disease Project # [id number] Inspector Technician: Yasemin Timmons MD [phone] Dyspnea 10/15/2011 01/27/2017 Dyslipidemia, goal to be [...] P R, 30MCG/0.3ML, IM, 12YRS AND ABOVE [facility] 12/13/2023 COVID-19, mRNA, LNP-s, PF, B ooster, [...] encounter Miscellaneous Notes * Telephone Encounter - Maude Sawant RN - 12/27/2023 3:44 PM EDT Pt was seen in [facility] ER on 12/20/23-pt cancelled her ER f/u with Dr Mcnair- needs to reschedule appt. Call to pt-she staes she saw cardiology and vascular surgery and was cleared by both for surgery on01/14/24. Scheduled appt with Dr Mcnair for 12/31/23 at 4:40 pm documented in this encounter Plan of Treatment Upcoming Encounters Date Type Department Care Team (Late st Contact Info) Description 12/31/2023 1:00 PM EDT Office Visit Family Practice [facility] [place] [address] [place] [address] Candice Mcnair DO [address] [place] [address] 03/26/2024 10:00 AM EST Office Visit Gastroenterology, [facility] [address] [address] Rama Francois CRNP [address] [address] 05/20/2024 11:00 AM EDT Imaging Radiology [facility] [address] [facility] [place] [address] 06/10/2024 11:10 AM EDT Office Visit Vascular Surgery, [facility] [address] [facility] [place] [address] Alvarez Newberry MD [address] [place] [address] 06/29/2024 1:30 PM EDT Office Visit Cardiology, [facility] [address] [place] [address] Sumeet Bergeron MD [address] [place] [address] 10/22/2024 8:45 AM EDT Office Visit Dermatology [facility] [address] [facility] [place] [address] Babatunde Yanes MD [address] [facility] [place] [address] Scheduled Procedures Name Priority Associated Diagnoses Date/Ti me COLONOSCOPY FLEXIBLE PROXIMAL DIAGNOSTIC Recall History of colon polyps Health Maintenance Due Date Last Done Comments Adult Wellness Visit 04/14/2015 04/14/2014 DXA Scan 09/29/2020 09/29/2018, 04/2013, 06/10/2013 CKD PHOS USE SMARTSET 10521 12/21/2021 12/21/2020 Colonoscopy 12/30/2021 12/30/2018, 12/30/2018 Albumin/Creatinine Ratio 09/09/2024 09/10/2023 Depression Screening 09/09/2024 09/10/2023 CKD HGB USE SMARTSET 18481 12/04/202412/04, 11/28/2023, 09/10/2023, Additional history exists DTap/Tdap Vaccines (3 - Td or Tdap) 06/10/2033 06/11/2023, 05/14/2013, 11/19/2003 Pneumococcal Vaccine: 65+ Years Completed 04/16/2014, 07/30/2001 Zoster Vaccines Completed 01/05/2019, 08/09, 08/29/2011 VITAMIN D LEVEL ONCE IN A LIFETIME-USE SMARTSET# 72057 Completed 09/10/2023 Diabetic Eye Exam Discontinued 09/17/2023, [...] this encounter Medical Devices Implanted Type Area Firmware Engineer Device Identifier Shelf Expiration Date Model / Serial / Lot Lens 19.0 Mx60 - [id number] Implanted:Qty: 1 on 12/28/2015 by Jorge L Alex MD at OR [facility] Left: Eye [employer] LOMB : SURGICAL 02/07/2018 MX60-19.0 / [id number] / [id number] Lens 20.5 Mx60 - [id number] - [id number] Implanted:Qty: 1 on 01/25/2016 by Jorge L Alex MD at OR [facility] BAUSCH & LOMB : SURGICAL 03/10/2018 MX60-20.5 / [id number] / [id number] Percutaneous Extension 2201bun - [id number] Implanted:Qty: 1 on 08/05/2020 by Disha Melendez MD at OR [facility] N/A: Buttocks [employer] 03/30/2022 9009 / / Kit Tined Lead - [id number] Implanted:Qty: 1 on 08/05/2020 by Disha Melendez MD at OR [facility] N/A: Buttocks [employer] 07/16/2022 1201 / / Neurostimulator - [id number] Implanted:Qty: 1 on 08/15/2020 by Disha Melendez MD at OR [facility] Right: Back [employer] 11/26/2021 1101 [...] and were consensually agreed upon. Care Teams Medical Authorization Specialist Relationship Specialty Start Date End Date Candice Mcnair DO [address] [place] [address] PCP - General Family Medicine 09/09/23 documented as of this encounter
--- OUTSIDE RECORDS SUMMARY | 2024-01-01 17:40 | External Medical Summary | Summary of Care ---
Author Name Unknown Organization [facility] Address [address] [place] [address] Phone [phone] Care Team Providers Care Glass Block Bender Name Role Phone Candice Mcnair Primary Care Provider + [phone] Reason for Visit * Reason Onset Date Comments Vascular Study 12/24/2023 Encounter Details Date Type Department Care Team (Late st Contact Info) Description 12/24/2023 Telephone Vascular Surgery, [facility] [address] [facility] [place] [address] Bharat Chase PA-C [address] [place] [address] Vascular Study Allergies Active Allergy Reactions Criticality Noted Date Comments Codeine Nausea/vomiting 03/23/2014 Hydroxychloroquine Rash 07/18/2021 Patient reported red itchy rash to neck after taking medication for 1 day Lisinopril Cough 12/09/2009 Pregabalin Edema Other 09/07/2016 Edema in the feet Morphine Anaphylaxis High 04/10/2011 Shrimp Flavor Nausea/vomiting 12/28/2015 Sulfa Antibiotics Nausea/vomiting 08/09/2000 Adhesive Tape Itching 08/25/2014 documented as of this encounter (statuses as of 12/24/2023) Medications Medication Sig Dispensed Refills Start Date [...] 24 Hour (Imdur)Indications: 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) Take [...] as of this encounter (statuses as of 12/24/2023) Active Problems Problem Noted Date Diagnosed Date Rheumatoid arthritis with rh eumatoid factor of multiple sites without organ or systems involvement 09/10/2023 Opioid dependence, uncomplicated 04/10/2023 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 04/10/2023 [...] artery disease of n ative artery of kotlik heart with stable angina pectoris 08/21/2019 Gastro-esophageal [...] as of this encounter (statuses as of 12/24/2023) Resolved Problems Problem Noted Date Diagnosed Date [...] artery disease) 10/31/2011 11/06/2020 [employer] Other*[id number] 10/31/2011 04/17/2016 Overview: Study Title: Genomic Markers for Patients with Cardiovascular Disease Project # [id number] Manager Medicaid: Yasemin Timmons MD [phone] Dyspnea 10/15/2011 01/27/2017 Dyslipidemia, goal to be determined 02/15/2009 09/26/2013 Overview: Per Lipid Taxonomy. Other allergic rhinitis 08/08/200103/2019 Overview: ICD-10 update of inactive term Acute. PURE HYPERCHOLESTEROLEM 10/30/200010/2008 Overview: Per Lipid Taxonomy. documented as of this encounter (statuses as of 12/24/2023) Immunizations Name Administration Dates Next Due COVID-19 mRNA, LNP-s, No Pre serve, 2-Dose Series (Moderna) 05/04/2020,04/04/2020 COVID-19, MRNA-LNP, 24-25, P R, 30MCG/0.3ML, IM, 12YRS AND ABOVE ([facility]) 12/13/2023 COVID-19, mRNA, LNP-s, PF, B ooster, 100mcg/0.5mg (Moderna) 03/16/2021 Covid-19, Mrna, Lnp-s, Pf, B ivalent, 50 Mcg, IM, 12 yrs and above (Moderna) 11/21/2021 Pneumococcal Conjugate Vacc, 13 Valent (Prevnar) 04/16/2014 Pneumococcal Polysaccharide PPV23 (Pneumovax) 07/30/2001 Season Influenza, Quad, PF, Adjuvanted, 65+ Yrs, IM (FLUAD) 12/30/2019 Seasonal Influenza Vac., MDV , IM, 0.5 mL (Fluzone) 01/15/2014,01/08/2013,11/16/2011,12/05,01/17/2010,12/25/2007,01/01/2007 ,01/17/2006,01/24/2005,12/30/2002,02/08 Seasonal Influenza, High Dos e, Trivalent, PF, [...] encounter Miscellaneous Notes * Telephone Encounter - Reynaldo Hunt OSA - 12/24/2023 3:25 PM EDT Images nominated to PACS * Telephone Encounter - Bharat Chase PA-C - 12/24/2023 2:36 PM EDT Please request 12/20/23 CTA Head/Neck results from [facility]. Pt is due to be seen tomorrow @ [facility]. I do not expect that images will be viewable by that visit. Thank you documented in this encounter Plan of Treatment Upcoming Encounters Date Type Department Care Team (Late st Contact Info) Description 12/25/2023 1:50 PM EDT Office Visit Vascular Surgery, [facility] [address] [place] [address] Alvarez Newberry MD [address] [place] [address] 03/26/2024 10:00 AM EST Office Visit Gastroenterology, [facility] [address] [place] [address] Rama Francois CRNP [address] [place] [address] 06/29/2024 1:30 PM EDT Office Visit Cardiology, [facility] [address] [place] [address] Sumeet Bergeron MD [address] [place] [address] 10/22/2024 8:45 AM EDT Office Visit Dermatology [facility] [address] [facility] [place] [address] Babatunde Yanes MD [address] [facility] [place] [address] Scheduled Procedures Name Priority Associated Diagnoses Date/Ti me COLONOSCOPY FLEXIBLE PROXIMAL DIAGNOSTIC Recall History of colon polyps Health Maintenance Due Date Last Done Comments Adult Wellness Visit 04/14/2015 04/14/2014 DXA Scan 09/29/2020 09/29/2018, 04/2013, 06/10/2013 CKD PHOS USE SMARTSET 10584 12/21/2021 12/21/2020 Colonoscopy 12/30/2021 12/30/2018, 12/30/2018 Albumin/Creatinine Ratio 09/09/2024 09/10/2023 Depression Screening 09/09/2024 09/10/2023 CKD HGB USE SMARTSET 93065 12/04/202412/04, 11/28/2023, 09/10/2023, Additional history exists DTap/Tdap Vaccines (3 - Td or Tdap) 06/10/2033 06/11/2023, 05/14/2013, 11/19/2003 Pneumococcal Vaccine: 65+ Years Completed 04/16/2014, 07/30/2001 Zoster Vaccines Completed 01/05/2019, 08/09, 08/29/2011 VITAMIN D LEVEL ONCE IN A LIFETIME-USE SMARTSET# 33353 Completed 09/10/2023 Diabetic Eye Exam Discontinued 09/17/2023, [...] this encounter Medical Devices Implanted Type Area Tree Scout Device Identifier Shelf Expiration Date Model / Serial / Lot Lens 19.0 Mx60 - [id number] Implanted:Qty: 1 on 12/28/2015 by Jorge L Alex MD at OR [facility] Left: Eye [employer]USCH [employer] LOMB : SURGICAL 02/07/2018 MX60-19.0 / [id number] / [id number] Lens 20.5 Mx60 - [id number] - [id number] Implanted:Qty: 1 on 01/25/2016 by Jorge L Alex MD at OR [facility] BAUSCH & LOMB : SURGICAL 03/10/2018 MX60-20.5 / [id number] / [id number] Percutaneous Extension 2201bun - [id number] Implanted:Qty: 1 on 08/05/2020 by Disha Melendez MD at OR [facility] N/A: Buttocks [employer] 03/30/2022 9009 / / Kit Tined Lead - [id number] Implanted:Qty: 1 on 08/05/2020 by Disha Melendez MD at OR [facility] N/A: Buttocks [employer] 07/16/2022 1201 / / Neurostimulator - [id number] Implanted:Qty: 1 on 08/15/2020 by Disha Melendez MD at OR [facility] Right: Back [employer] 11/26/2021 1101 [...] and were consensually agreed upon. Care Teams Glass Block Bender Relationship Specialty Start Date End Date Candice Mcnair DO [address] [facility] [place] [address] PCP - General Family Medicine 09/09/23 documented as of this encounter
--- OUTSIDE RECORDS SUMMARY | 2024-01-01 17:40 | External Medical Summary | Summary of Care ---
Author Name Unknown Organization [facility] Address [address] [place] [address] Phone [phone] Care Team Providers Care Public Health Program Manager Name Role Phone DarinCandice diaz Primary Care Provider + [phone] Encounter Details Date Type Department Care Team (Late st Contact Info) Description 12/20/2023 Orders Only Vascular Surg [facility] [address] [place], [place] [id number] Alvarez Newberry MD [address] [place] [address] Allergies Active Allergy Reactions Criticality Noted Date [...] 24 Hour (Imdur)Indications: Coronary artery disease of lone [place] artery of [place] heart with stable angina pectoris (HCC) Take [...] 09/10/2023 Opioid dependence, uncomplicated 04/10/2023 Atherosclerosis of [place] co ronary artery without angina pectoris 04/10/2023 [...] artery disease of n ative artery of lone pine heart with stable angina pectoris 08/21/2019 Gastro-esophageal [...] artery disease) 10/31/2011 11/06/2020 [employer] Other*[id number] 10/31/2011 04/17/2016 Overview: Study Title: Genomic Markers for Patients with Cardiovascular Disease Project # [id number] Auto Brake Mechanic: Yasemin Timmons MD [phone] [facility] 10/15/2011 01/27/2017 Dyslipidemia, goal to [...] P R, 30MCG/0.3ML, IM, 12YRS AND ABOVE ([facility]) 12/13/2023 COVID-19, mRNA, LNP-s, PF, B ooster, [...] 1:50 PM EDT Office Visit Vascular Surgery, [facility] [address] [place] [address] Alvarez Newberry MD [address] [place] [address] 03/26/2024 10:00 AM EST Office Visit Gastroenterology, [facility] [address] [facility] [place] [address] Rama Francois CRNP [address] [place] [address] 06/29/2024 1:30 PM EDT Office Visit Cardiology, [facility] [address] [facility] [place] [address] Sumeet Bergeron MD [address] [place] [address] 10/22/2024 8:45 AM EDT Office Visit Dermatology [facility] [address] [facility] [place] [address] Babatunde Yanes MD [address] [facility], [place] [address] Scheduled Procedures Name Priority Associated Diagnoses Date/Ti me COLONOSCOPY FLEXIBLE PROXIMAL DIAGNOSTIC Recall History of colon polyps Health Maintenance Due Date Last Done Comments Adult Wellness Visit 04/14/2015 04/14/2014 DXA Scan 09/29/2020 09/29/2018, 04/04/2013, 06/10/2013 CKD PHOS USE SMARTSET 23782 12/21/2021 12/21/2020 Colonoscopy 12/30/2021 12/30/2018, 12/30/2018 Albumin/Creatinine Ratio 09/09/2024 09/10/2023 Depression Screening 09/09/2024 09/10/2023 CKD HGB USE SMARTSET 04139 12/04/202412/04, 11/28/2023, 09/10/2023, Additional history exists DTap/Tdap Vaccines (3 - Td or Tdap) 06/10/2033 06/11/2023, 05/14/2013, 11/19/2003 Pneumococcal Vaccine: 65+ Years Completed 04/16/2014, 07/30/2001 Zoster Vaccines Completed 01/05/2019, 08/09, 08/29/2011 VITAMIN D LEVEL ONCE IN A LIFETIME-USE SMARTSET# [id number] Completed 09/10/2023 Diabetic Eye Exam Discontinued 09/17/2023, [...] this encounter Medical Devices Implanted Type Area Hood Maker Device Identifier Shelf Expiration Date Model / Serial / Lot Lens 19.0 Mx60 - [id number] Implanted:Qty: 1 on 12/28/2015 by Jorge L Alex MD at OR [facility] Left: Eye [employer] LOMB : SURGICAL 02/07/2018 MX60-19.0 / [id number] Lens 20.5 Mx60 - [id number] - [id number] Implanted:Qty: 1 on 01/25/2016 by Jorge L Alex MD at OR [facility] BAUSCH & LOMB : SURGICAL 03/10/2018 MX60-20.5 / [id number] / [id number] Percutaneous Extension 2201bun - [id number] Implanted:Qty: 1 on 08/05/2020 by Disha Melendez MD [place] [facility] [place]: Buttocks [employer] 03/30/2022 9009 / / Kit Tined Lead - [id number] Implanted:Qty: 1 on 08/05/2020 by Disha Melendez MD [place] [facility] [place]/A: Buttocks [employer] 07/16/2022 1201 / / Neurostimulator - [id number] Implanted:Qty: 1 on 08/15/2020 by Disha Melendez MD [place] [facility] [place]: Back [employer] 11/26/2021 1101 / / documented as of this encounter Procedures Procedure Name Priority Date/Time Associated Diagnosis Comments RADIOLOGY EXAM - CT (IMAGES ONLY, NO REPORT) Routine 12/20/2023 2:20 PM EDT documented in this encounter Results * RADIOLOGY EXAM - CT (IMAGES ONLY, NO REPORT) (12/20/2023 2:20 PM EDT) 12/20/2023 2:13 PM EDT Narrative Scheduling, Silent - 12/24/2023 4:32 PM EDT This is an imaging study not interpreted or resulted by a [facility] or [facility] contracted radiologist. Alvarez Newberry MD RAD CT [...] and were consensually agreed upon. Care Teams Public Health Program Manager Relationship Specialty Start Date End Date Candice Mcnair DO [address] [facility] [place] [address] PCP - General Family Medicine 09/09/23 documented as of this encounter
--- OUTSIDE RECORDS SUMMARY | 2024-01-01 17:40 | External Medical Summary | Summary of Care ---
Author Name Unknown Organization [facility] Address [address] [place] [address] Phone [phone] Care Team Providers Care Mill Supervisor Name Role Phone DarinCandice diaz Primary Care Provider + [phone] Encounter Details Date Type Department Care Team (Late st Contact Info) Description 12/20/2023 Orders Only Vascular Surg [facility] [address] [place], [place] [phone] Alvarez Newberry MD [address] [place] [address] Allergies Active Allergy Reactions Criticality [...] 24 Hour (Imdur)Indications: Coronary artery disease of chickahominy indian tribe artery of chickahominy indian tribe heart with stable angina pectoris (HCC) [...] 09/10/2023 Opioid dependence, uncomplicated 04/10/2023 Atherosclerosis of chickahominy indian tribe co ronary artery without angina pectoris [...] artery disease of n ative artery of chickahominy indian tribe heart with stable angina pectoris 08/21/2019 [...] artery disease) 10/31/2011 11/06/2020 [employer] Other*[id number] 10/31/2011 04/17/2016 Overview: Study Title: Genomic Markers for Patients with Cardiovascular Disease Project # [id number] Chief School Finance Officer: Yasemin Timmons MD [phone] [facility] 10/15/2011 01/27/2017 Dyslipidemia, goal to be [...] 1:50 PM EDT Office Visit Vascular Surgery, [facility] [address] [place] [address] Alvarez Newberry MD [address] [place] [address] 03/26/2024 10:00 AM EST Office Visit Gastroenterology, [facility] [address] [facility] [place] [address] Rama Francois CRNP [address] [place] [address] 06/29/2024 1:30 PM EDT Office Visit Cardiology, [facility] [address] [facility] [place] [address] Sumeet Bergeron MD [address] [place] [address] 10/22/2024 8:45 AM EDT Office Visit Dermatology [facility] 200 [facility] [place] [address] Babatunde Yanes MD [address] [facility], [place] [address] Scheduled Procedures Name Priority Associated Diagnoses Date/Ti me COLONOSCOPY FLEXIBLE PROXIMAL DIAGNOSTIC Recall History of colon polyps Health Maintenance Due Date Last Done Comments Adult Wellness Visit 04/14/2015 04/14/2014 DXA Scan 09/29/2020 09/29/2018, 04/04/2013, 06/10/2013 CKD PHOS USE SMARTSET 16497 12/21/2021 12/21/2020 Colonoscopy 12/30/2021 12/30/2018, 12/30/2018 Albumin/Creatinine Ratio 09/09/2024 09/10/2023 Depression Screening 09/09/2024 09/10/2023 CKD HGB USE SMARTSET 90585 12/04/202412/04, 11/28/2023, 09/10/2023, Additional history exists DTap/Tdap Vaccines (3 - Td or Tdap) 06/10/2033 06/11/2023, 05/14/2013, 11/19/2003 Pneumococcal Vaccine: 65+ Years Completed 04/16/2014, 07/30/2001 Zoster Vaccines Completed 01/05/2019, 08/09, 08/29/2011 VITAMIN D LEVEL ONCE IN A LIFETIME-USE SMARTSET# 51547 Completed 09/10/2023 Diabetic Eye Exam Discontinued 09/17/2023, [...] this encounter Medical Devices Implanted Type Area Animal Tech Device Identifier Shelf Expiration Date Model / Serial / Lot Lens 19.0 Mx60 - [id number] Implanted:Qty: 1 on 12/28/2015 by Jorge L Alex MD at OR [facility] Left: Eye [employer] LOMB : SURGICAL 02/07/2018 MX60-19.0 / [id number] Lens 20.5 Mx60 - [id number] - [id number] Implanted:Qty: 1 on 01/25/2016 by Jorge L Alex MD at OR [facility] BAUSCH & LOMB : SURGICAL 03/10/2018 MX60-20.5 / [id number] / [id number] Percutaneous Extension 2201bun - [id number] Implanted:Qty: 1 on 08/05/2020 by Disha Melendez MD at OR [facility] N/A: Buttocks [employer] 03/30/2022 9009 / / Kit Tined Lead - [id number] Implanted:Qty: 1 on 08/05/2020 by Disha Melendez MD at OR [facility] N/A: Buttocks [employer] 07/16/2022 1201 / / Neurostimulator - [id number] Implanted:Qty: 1 on 08/15/2020 by Disha Melendez MD at OR [facility] Right: Back [employer] [...] interpreted or resulted by a [facility] or [facility] contracted radiologist. Alvarez Newberry MD RAD CT [...] and were consensually agreed upon. Care Teams Mill Supervisor Relationship Specialty Start Date End Date Candice Mcnair DO [address] [facility] [place] [address] PCP - General Family Medicine 09/09/23 documented as of this encounter
--- OUTSIDE RECORDS SUMMARY | 2024-01-01 17:40 | External Medical Summary | Summary of Care ---
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) Take [...] 09/10/2023 Opioid dependence, uncomplicated 04/10/2023 Atherosclerosis of [place]il[place] co ronary artery without angina pectoris 04/10/2023 [...] artery disease of n ative artery of chilkat heart with stable angina pectoris 08/21/2019 Gastro-esophageal [...] artery disease) 10/31/2011 11/06/2020 [employer] Other*[id number] 10/31/2011 04/17/2016 Overview: Study Title: Genomic Markers for Patients with Cardiovascular Disease Project # [id number] Seasonal Package Handler: Yasemin Timmons MD [phone] [facility] 10/15/2011 01/27/2017 Dyslipidemia, goal to be [...] 1:50 PM EDT Office Visit Vascular Surgery, [facility] [address] Alvarez Newberry MD [address] [facility] [place] [address] 03/26/2024 10:00 AM EST Office Visit Gastroenterology, [facility] 132 [place] [address] Rama Francois CRNP [address] [place] [address] 06/29/2024 1:30 PM EDT Office Visit Cardiology, [facility] 132 [facility] [place] [address] Sumeet Bergeron MD [address] [place] [address] 10/22/2024 8:45 AM EDT Office Visit Dermatology [facility] 200 [place] [address] Babatunde Yanes MD [address] [place] [address] Scheduled Procedures Name Priority Associated Diagnoses Date/Ti me COLONOSCOPY FLEXIBLE PROXIMAL DIAGNOSTIC Recall History of colon polyps Health Maintenance Due Date Last Done Comments Adult Wellness Visit 04/14/2015 04/14/2014 DXA Scan 09/29/2020 09/29/2018, 0404/2013, 06/10/2013 CKD PHOS USE SMARTSET 85596 12/21/2021 12/21/2020 Colonoscopy 12/30/2021 12/30/2018, 12/30/2018 Albumin/Creatinine Ratio 09/09/2024 09/10/2023 Depression Screening 09/09/2024 09/10/2023 CKD HGB USE SMARTSET 21505 12/04/202412/04, 11/28/2023, 09/10/2023, Additional history exists DTap/Tdap Vaccines (3 - Td or Tdap) 06/10/2033 06/11/2023, 05/14/2013, 11/19/2003 Pneumococcal Vaccine: 65+ Years Completed 04/16/2014, 07/30/2001 Zoster Vaccines Completed 01/05/2019, 08/09, 08/29/2011 VITAMIN D LEVEL ONCE IN A LIFETIME-USE SMARTSET# [id number] Completed 09/10/2023 Diabetic Eye Exam Discontinued 09/17/2023, [...] this encounter Medical Devices Implanted Type Area Music Coordinator Device Identifier Shelf Expiration Date Model / Serial / Lot Lens 19.0 Mx60 - [id number] Implanted:Qty: 1 on 12/28/2015 by Jorge L Alex MD at OR [facility] Left: Eye BAUSCH [employer] LOMB : SURGICAL 02/07/2018 MX60-19.0 / [id number] / [id number] Lens 20.5 Mx60 - [id number] - [id number] Implanted:Qty: 1 on 01/25/2016 by Jorge L Alex MD at OR [facility] BAUSCH & LOMB : SURGICAL 03/10/2018 MX60-20.5 / [id number] / [id number] Percutaneous Extension 2201bun - [id number] Implanted:Qty: 1 on 08/05/2020 by Disha Melendez MD at OR [facility] N/A: Buttocks [employer] 03/30/2022 9009 / / Kit Tined Lead - [id number] Implanted:Qty: 1 on 08/05/2020 by Disha Melendez MD at OR [facility] N/A: Buttocks [employer] 07/16/2022 1201 / / Neurostimulator - [id number] Implanted:Qty: 1 on 08/15/2020 by Disha Melendez MD at OR [facility] Right: Back [employer] [...] interpreted or resulted by a [facility] radiologist. Alvarez Newberry MD RAD CT [...] and were consensually agreed upon. Care Teams It Security Engineer Relationship Specialty Start Date End Date Candice Mcnair DO [address] [place] [address], [place] [address] PCP - General Family Medicine 09/09/23 documented as of this encounter
--- OUTSIDE RECORDS SUMMARY | 2024-01-01 17:40 | External Medical Summary | Summary of Care ---
Author Name Unknown Organization [facility] Address [address] [place] [address] Phone [phone] Care Team Providers Care Manufacturers Agent Name Role Phone Candice Mcnair Primary Care Provider + [phone] Reason for Visit * Reason Onset Date Comments Vascular Study 12/24/2023 Encounter Details Date Type Department Care Team (Late st Contact Info) Description 12/24/2023 Telephone Vascular Surgery, [facility] [address] [facility] [place] [address] Bharat Chase PA-C [address] [place] [address] Vascular Study Allergies Active Allergy [...] 24 Hour (Imdur)Indications: Coronary artery disease of twenty[place]nine [place] artery of [place] heart with stable angina pectoris (HCC) Take [...] 09/10/2023 Opioid dependence, uncomplicated 04/10/2023 Atherosclerosis of [place] co ronary artery without angina pectoris 04/10/2023 [...] artery disease of n ative artery of twenty[place]nine [place] heart with stable angina pectoris 08/21/2019 Gastro-esophageal [...] artery disease) 10/31/2011 11/06/2020 [employer] Other*[id number] 10/31/2011 04/17/2016 Overview: Study Title: Genomic Markers for Patients with Cardiovascular Disease Project # [id number] Nocturnist Physician: Yasemin Timmons MD [phone] Dyspnea 10/15/2011 01/27/2017 Dyslipidemia, goal to be [...] P R, 30MCG/0.3ML, IM, 12YRS AND ABOVE ([employer]) 12/13/2023 COVID-19, mRNA, LNP-s, PF, B ooster, [...] encounter Miscellaneous Notes * Telephone Encounter - Bharat Chase PA-C - 12/24/2023 2:36 PM EDT Please request 12/20/23 CTA Head/Neck results from [facility]. Pt is due to be seen tomorrow @ s. I do not expect that images will be viewable by that visit. Thank you documented in this encounter Plan of Treatment Upcoming Encounters Date Type Department Care Team (Late st Contact Info) Description 12/25/2023 1:50 PM EDT Office Visit Vascular Surgery, [facility] [address] [facility] [place] [address] Alvarez Newberry MD [address] [place] [address] 03/26/2024 10:00 AM EST Office Visit Gastroenterology, [facility] [address] [facility] [place] [address] Rama Francois CRNP [address] [facility] [place] [address] 06/29/2024 1:30 PM EDT Office Visit Cardiology, [facility] 132 [facility] [place] [address] Sumeet Bergeron MD [address] [place] [address] 10/22/2024 8:45 AM EDT Office Visit Dermatology [facility] [place] [address] [place] [address] Babatunde Yanes MD 200 [facility] [place] [address] Scheduled Procedures Name Priority Associated Diagnoses Date/Ti me COLONOSCOPY FLEXIBLE PROXIMAL DIAGNOSTIC Recall History of colon polyps Health Maintenance Due Date Last Done Comments Adult Wellness Visit 04/14/2015 04/14/2014 DXA Scan 09/29/2020 09/29/2018, 04/04/2013, 06/10/2013 CKD PHOS USE SMARTSET 07348 12/21/2021 12/21/2020 Colonoscopy 12/30/2021 12/30/2018, 12/30/2018 Albumin/Creatinine Ratio 09/09/2024 09/10/2023 Depression Screening 09/09/2024 09/10/2023 CKD HGB USE SMARTSET 05806 12/04/202412/04, 11/28/2023, 09/10/2023, Additional history exists DTap/Tdap Vaccines (3 - Td or Tdap) 06/10/2033 06/11/2023, 05/14/2013, 11/19/2003 Pneumococcal Vaccine: 65+ Years Completed 04/16/2014, 07/30/2001 Zoster Vaccines Completed 01/05/2019, 08/09, 08/29/2011 VITAMIN D LEVEL ONCE IN A LIFETIME-USE SMARTSET# [id number] Completed 09/10/2023 Diabetic Eye Exam Discontinued 09/17/2023, [...] this encounter Medical Devices Implanted Type Area Health It Specialist Device Identifier Shelf Expiration Date Model / Serial / Lot Lens 19.0 Mx60 - [id number] Implanted:Qty: 1 on 12/28/2015 by Jorge L Alex MD at OR [facility] Left: Eye [employer] : SURGICAL 02/07/2018 MX60-19.0 / [id number] / [id number] Lens 20.5 Mx60 - [id number] - [id number] Implanted:Qty: 1 on 01/25/2016 by Jorge L Alex MD at OR [facility] BA[employer]CH [employer] LOMB : SURGICAL 03/10/2018 MX60-20.5 / [id number] / [id number] Percutaneous Extension 2201bun - [id number] Implanted:Qty: 1 on 08/05/2020 by Disha Melendez MD at OR [facility] N/A: Buttocks [employer] 03/30/2022 9009 / / Kit Tined Lead - [id number] Implanted:Qty: 1 on 08/05/2020 by Disha Melendez MD at OR [facility] N/A: Buttocks [employer] 07/16/2022 1201 / / Neurostimulator - [id number] Implanted:Qty: 1 on 08/15/2020 by Disha Melendez [...] and were consensually agreed upon. Care Teams Manufacturers Agent Relationship Specialty Start Date End Date Candice Mcnair DO [address] [place] [address], [place] [address] PCP - General Family Medicine 09/09/23 documented as of this encounter
--- OUTSIDE RECORDS SUMMARY | 2024-01-01 17:40 | External Medical Summary | Summary of Care ---
Author Name Unknown Organization [facility] Address [address] [place] [address] Phone [phone] Care Team Providers Care Servicenow Administrator Developer Name Role Phone Candice Mcnair Primary Care Provider + [phone] Reason for Visit * Reason Onset Date Comments Vascular Study 12/24/2023 Encounter Details Date Type Department Care Team (Late st Contact Info) Description 12/24/2023 Telephone Vascular Surgery, [facility] [address] [facility] [place] [address] Bharat Chase PA-C [address] [place] [address] Vascular Study Allergies Active Allergy [...] 24 Hour (Imdur)Indications: Coronary artery disease of [place] artery of [place] heart with stable angina pectoris (HCC) Take [...] 09/10/2023 Opioid dependence, uncomplicated 04/10/2023 Atherosclerosis of [place] co ronary artery without angina pectoris 04/10/2023 [...] artery disease of n ative artery of [place] heart with stable angina pectoris 08/21/2019 Gastro-esophageal [...] artery disease) 10/31/2011 11/06/2020 [employer] Other*[id number] 10/31/2011 04/17/2016 Overview: Study Title: Genomic Markers for Patients with Cardiovascular Disease Project # [id number] Esol Teacher: Yasemin Timmons MD [phone] Dyspnea 10/15/2011 01/27/2017 Dyslipidemia, goal to be [...] P R, 30MCG/0.3ML, IM, 12YRS AND ABOVE ([facility]) 12/13/2023 COVID-19, mRNA, LNP-s, PF, B ooster, [...] Encounter - Bharat Chase PA-C - 12/24/2023 4:57 PM EDT Awesome!!! Thank you!!! * Telephone Encounter - Reynaldo Hunt OSA - 12/24/2023 3:25 PM EDT Images nominated to PACS * Telephone Encounter - Bharat Chase PA-C - 12/24/2023 2:36 PM EDT Please request 12/20/23 CTA Head/Neck results from [facility]. Pt is due to be seen tomorrow @ [facility]. I do not expect that images will be viewable by that visit. Thank you documented in this encounter Plan of Treatment Upcoming Encounters Date Type Department Care Team (Late st Contact Info) Description 12/25/2023 1:50 PM EDT Office Visit Vascular Surgery, [facility] [address] [place] [address] Alvarez Newberry MD [address] [facility] [place] [address] 03/26/2024 10:00 AM EST Office Visit Gastroenterology, [facility] [address] [place] [address] Rama Francois CRNP 132 [facility] [place] [address] 06/29/2024 1:30 PM EDT Office Visit Cardiology, [facility] [address] [place] [address] Sumeet Bergeron MD [address] [place] [address] 10/22/2024 8:45 AM EDT Office Visit Dermatology [facility] [address] [place] [address] Babatunde Yanes MD [address] [place] [address] Scheduled Procedures Name Priority Associated Diagnoses Date/Ti me COLONOSCOPY FLEXIBLE PROXIMAL DIAGNOSTIC Recall History of colon polyps Health Maintenance Due Date Last Done Comments Adult Wellness Visit 04/14/2015 04/14/2014 DXA Scan 09/29/2020 09/29/2018, 04/04/2013, 06/10/2013 CKD PHOS USE SMARTSET 79664 12/21/2021 12/21/2020 Colonoscopy 12/30/2021 12/30/2018, 12/30/2018 Albumin/Creatinine Ratio 09/09/2024 09/10/2023 Depression Screening 09/09/2024 09/10/2023 CKD HGB USE SMARTSET 04669 12/04/202412/04, 11/28/2023, 09/10/2023, Additional history exists DTap/Tdap Vaccines (3 - Td or Tdap) 06/10/2033 06/11/2023, 05/14/2013, 11/19/2003 Pneumococcal Vaccine: 65+ Years Completed 04/16/2014, 07/30/2001 Zoster Vaccines Completed 01/05/2019, 08/09, 08/29/2011 VITAMIN D LEVEL ONCE IN A LIFETIME-USE SMARTSET# [id number] Completed 09/10/2023 Diabetic Eye Exam Discontinued 09/17/2023, [...] this encounter Medical Devices Implanted Type Area Systems Software Specialist Device Identifier Shelf Expiration Date Model / Serial / Lot Lens 19.0 Mx60 - [id number] Implanted:Qty: 1 on 12/28/2015 by Jorge L Alex MD at OR [facility] Left: Eye [employer] : SURGICAL 02/07/2018 MX60-19.0 / [id number] / [id number] Lens 20.5 Mx60 - [id number] - [id number] Implanted:Qty: 1 on 01/25/2016 by Jorge L Alex MD at OR [facility] BA[employer]CH [employer] LOMB : SURGICAL 03/10/2018 MX60-20.5 / [id number] / [id number] Percutaneous Extension 2201bun - [id number] Implanted:Qty: 1 on 08/05/2020 by Disha Melendez MD at OR [facility] N/A: Buttocks [employer] 03/30/2022 9009 / / Kit Tined Lead - [id number] Implanted:Qty: 1 on 08/05/2020 by Disha Melendez MD at OR [facility] N/A: Buttocks [employer] 07/16/2022 1201 / / Neurostimulator - [id number] Implanted:Qty: 1 on 08/15/2020 by Disha Melendez MD at OR [facility] Right: Back [employer] 11/26/2021 1101 [...] and were consensually agreed upon. Care Teams Servicenow Administrator Developer Relationship Specialty Start Date End Date Candice Mcnair DO [address] [facility] [place] [address] PCP - General Family Medicine 09/09/23 documented as of this encounter
--- OUTSIDE RECORDS SUMMARY | 2024-01-01 17:41 | External Medical Summary | Summary of Care ---
Author Name Unknown Organization [facility] Address [address] [place] [address] Phone [phone] Care Team Providers Care Fast Food Cook Name Role Phone Candice Mcnair Primary Care Provider + [phone] Reason for Visit * Reason Onset Date Comments Appointment 12/09/2023 Encounter Details Date Type Department Care Team (Late st Contact Info) Description 12/09/2023 Telephone Care Coordination and Integration [address] [place], [place] [phone] Anna St, RN [address] [place], [place] [phone] Appointment Allergies Active Allergy Reactions Criticality Noted Date Comments Codeine Nausea/vomiting 03/23/2014 Hydroxychloroquine Rash 07/18/2021 Patient reported red itchy rash to neck after taking medication for 1 day Lisinopril Cough 12/09/2009 Pregabalin Edema Other 09/07/2016 Edema in the feet Morphine Anaphylaxis High 04/10/2011 Shrimp Flavor Nausea/vomiting 12/28/2015 Sulfa Antibiotics Nausea/vomiting 08/09/2000 Adhesive Tape Itching 08/25/2014 documented as of this encounter (statuses as of 12/23/2023) Medications Medication Sig Dispensed Refills Start Date End Date Status Aspirin 81 MG Tablet Take 1 Tablet by mouth 3 times a week. 34 Tab 5 02/07/2015 Active amoxicillin (AMOXIL) 500 MG Capsule 4 01/06/2019 Active Melatonin 3 MG Oral CapsuleIndication s:as [...] a day. 90 Tablet 1 11/04/2023 Active CALCIUM 500 MG PO TABS Take by mouth. Discontinue d(Medicatio n List Clean Up) Simethicone 125 MG Oral Tablet ChewableIndicatio ns:as needed Take by mouth. Indications: as needed 4 Discontinue d(Medicatio n List Clean Up) traMADol HCl 50 MG Oral Tablet (Ultram) Take 1 Tab by mouth every 6 hours as needed for Pain, Severe. 5 Tab 08/05/2020 4 Discontinue d(Patient preference/ discontinua tion) Isosorbide Mononitrate ER 30 MG Oral Tablet Extended Release 24 Hour (Imdur)Indication s:Coronary artery disease of [place] artery of [place] heart with stable angina pectoris (HCC) TAKE 2 TABLETS BY MOUTH EVERY MORNING 180 Tablet 4 05/16/2022 Discontinue d(Refill) Xeljanz XR 11 MG Oral Tablet Extended Release 24 Hour (Tofacitinib Citrate ER) Take 1 tablet by mouth once a day. 90 Tablet 1 08/03/2022 Discontinue d(Medicatio n List Clean Up) Mupirocin 2 % External Ointment (Bactroban)Indica tions:Pressure injury of right buttock, stage 2 (HCC) Apply 0.25 Inches topically to affected area in the morning and 0.25 Inches before bedtime. Apply to buttock sore.. 22 g 06/26/2023 Discontinue d(Medicatio n List Clean Up) clonazePAM 0.5 MG Oral Tablet (KlonoPIN) TAKE 1 TABLET BY MOUTH EVERY DAY AT BEDTIME 30 Tablet 2 07/17/2023 4 Discontinue d(Patient preference/ discontinua tion) Vitamin C ER 500 MG Oral Capsule Extended Release Take by mouth. 4 Discontinue d(Medicatio n List Clean Up) Vitamin D-[address] 25 MCG (1000 UT) Oral Tablet (Cholecalciferol) Take 1 Tablet by mouth in the morning. 4 Discontinue d(Medicatio n List Clean Up) Dicyclomine HCl 10 MG Oral Capsule (Bentyl) Take 1 Capsule by mouth in the morning and 1 Capsule before bedtime. Discontinue d(Medicatio n List Clean Up) documented as of this encounter (statuses as of 12/23/2023) Active Problems Problem Noted Date Diagnosed Date Rheumatoid arthritis with rh eumatoid factor of multiple sites without organ or systems involvement 09/10/2023 Opioid dependence, uncomplicated 04/10/[address] [place] [place] co ronary artery without angina pectoris 04/10/2023 [...] disease of n ative artery of [place] heart with stable angina pectoris 08/21/2019 Gastro-esophageal [...] as of this encounter (statuses as of 12/23/2023) Resolved Problems Problem Noted Date Diagnosed Date [...] artery disease) 10/31/2011 11/06/2020 [employer] Other*[id number] 10/31/2011 04/17/2016 Overview: Study Title: Genomic Markers for Patients with Cardiovascular Disease Project # [id number] Package Clerk: Yasemin Timmons MD [phone] Dyspnea 10/15/2011 01/27/2017 Dyslipidemia, goal to be determined 02/15/2009 09/26/2013 Overview: Per Lipid Taxonomy. Other allergic rhinitis 08/08/200103/2019 Overview: ICD-10 update of inactive term Acute. PURE HYPERCHOLESTEROLEM 10/30/200010/2008 Overview: Per Lipid Taxonomy. documented as of this encounter (statuses as of 12/23/2023) Immunizations Name Administration Dates Next Due COVID-19 [...] encounter Miscellaneous Notes * Telephone Encounter - Viry Abreu OSA - 12/09/2023 11:01 AM EDT Appt rescheduled, pt aware * Telephone Encounter - Anna St RN - 12/09/2023 10:32 AM EDT Please call to reschedule hospital d/c appointment. Pt is scheduled to see spinal surgery at the same time as she is scheduled to see PCP tomorrow. Thanks! documented in this encounter Plan of Treatment Upcoming Encounters Date Type Department Care Team (Late st Contact Info) Description 12/24/2023 11:30 AM EDT Office Visit Cardiology, [facility] [address] [place] [address] Ryan Bhandari PA-C 132 [facility] [place] [address] 01/13/2024 10:40 AM EST Office Visit Family Practice [address] [place] [address] 293 [place] [phone] Candice Mcnair, DO 293 [place] [address] 01/14/2024 11:20 AM EST Office Visit Family Practice [address] [place] [address] [address] [place] [address] Candice Mcnair, DO 293 [place] [address] 03/26/2024 10:00 AM EST Office Visit Gastroenterology, [facility] [address] [place] [address] Rama Francois CRNP [facility] [place] [address] 06/29/2024 1:30 PM EDT Office Visit Cardiology, [facility] [address] [place] [address] Sumeet Bergeron MD [address] [place] [address] 10/22/2024 8:45 AM EDT Office Visit Dermatology [facility] 200 [facility] [place] [address] Babatunde Yanes MD 200 [facility] [place], [place] [address] Scheduled Procedures Name Priority Associated Diagnoses Date/Ti me COLONOSCOPY FLEXIBLE PROXIMAL DIAGNOSTIC Recall History of colon polyps Health Maintenance Due Date Last Done Comments Adult Wellness Visit 04/14/2015 04/14/2014 DXA Scan 09/29/2020 09/29/2018, 04/2013, 06/10/2013 CKD PHOS USE SMARTSET 87315 12/21/2021 12/21/2020 Colonoscopy 12/30/2021 12/30/2018, 12/30/2018 Albumin/Creatinine Ratio 09/09/2024 09/10/2023 Depression Screening 09/09/2024 09/10/2023 CKD HGB USE SMARTSET 17687 12/04/202412/04, 11/28/2023, 09/10/2023, Additional history exists DTap/Tdap Vaccines (3 - Td or Tdap) 06/10/2033 06/11/2023, 05/14/2013, 11/19/2003 Pneumococcal Vaccine: 65+ Years Completed 04/16/2014, 07/30/2001 Zoster Vaccines Completed 01/05/2019, 08/09, 08/29/2011 VITAMIN D LEVEL ONCE IN A LIFETIME-USE SMARTSET# 14835 Completed 09/10/2023 Diabetic Eye Exam Discontinued 09/17/2023, [...] this encounter Medical Devices Implanted Type Area Senior Stack Engineer Device Identifier Shelf Expiration Date Model / Serial / Lot Lens 19.0 Mx60 - [id number] Implanted:Qty: 1 on 12/28/2015 by Jorge L Alex MD at OR [facility] Left: Eye [employer] : SURGICAL 02/07/2018 MX60-19.0 / [id number] / [id number] Lens 20.5 Mx60 - [id number] - [id number] Implanted:Qty: 1 on 01/25/2016 by Jorge L Alex MD at OR [facility] BAUSCH [employer] LOMB : SURGICAL 03/10/2018 MX60-20.5 / [id number] / [id number] Percutaneous Extension 2201bun - [id number] Implanted:Qty: 1 on 08/05/2020 by Disha Melendez MD at OR [facility] N/A: Buttocks [employer] 03/30/2022 9009 / / Kit Tined Lead - [id number] Implanted:Qty: 1 on 08/05/2020 by Disha Melendez MD at OR [facility] N/A: Buttocks [employer] 07/16/2022 1201 / / Neurostimulator - [id number] Implanted:Qty: 1 on 08/15/2020 by Disha Melendez MD at OR [facility] Right: Back [employer] 11/26/2021 1101 [...] and were consensually agreed upon. Care Teams Fast Food Cook Relationship Specialty Start Date End Date Candice Mcnair DO [address] [facility] [place] [place] [address] PCP - General Family Medicine 09/09/23 documented as of this encounter
[2024-01-01] MEDS: ACETAMINOPHEN 500 MG TAB PO SCH (18:24)
[2024-01-01] MEDS: KETOROLAC TROMETHAMINE 15 MG/ML VIAL IV ONE (20:39)
[2024-01-01] MEDS: GABAPENTIN 300 MG CAP PO SCH (20:41)
[2024-01-01] MEDS: FAMOTIDINE 20 MG TAB PO SCH (20:41)
[2024-01-01] MEDS: HEPARIN SOD 5,000 UNIT/0.5 ML VIAL SQ SCH (20:42)
[2024-01-01] MEDS: METOPROLOL SUCC 25MG EXT REL TAB PO SCH (20:42)
[2024-01-01] MEDS: ROSUVASTATIN CALCIUM 20 MG TAB PO SCH (20:42)
--- NOTE | 2024-01-01 22:09 | XRay Report ---
SINGLE VIEW CHEST CLINICAL HISTORY: Neurological deficit. Stroke like symptoms. FINDINGS: An AP, portable, upright chest radiograph is compared to study dated 12/20/2023. The heart is enlarged noting atherosclerotic calcification of the thoracic. There is pulmonary vascular congest ion. There is dense airspace consolidation at the right apex. Trace pleural effusions are suspected. Scarring/atelectasis is noted at the lung bases. No pneumothorax is seen. The skeletal structures are osteopenic. The bony thorax is grossly intact. A right shoulder arthroplasty is in place. Advanced a rthritic change is noted in the left shoulder. Spondylotic changes noted in the spine. Fusion hardwar e is partially imaged in the lumbar spine. IMPRESSION: 1. Cardiomegaly with pulmonary vascular congestion. 2. Dense airspace consolidation is seen at the right apex. This is new from 12/20/2023. Correlate cli nically for evidence of pneumonia. Radiographic follow-up to resolution is recommended. ACT 112: Negative or not required by law. Electronically signed by: Preston Hammonds M.D. 01/01/2024 10:06 PM
[2024-01-01] MEDS: cefTRIAXone SODIUM 2,000 MG/50 ML BAG IV SCH (23:21)
[2024-01-01] MEDS: [UNRECOGNIZED DRUG - REMARK] SCH (23:22)
[2024-01-02] MEDS: DOXYCYCLINE HYCLATE 100 MG in DEXTROSE 5% MINI-B 100 ML IV SCH (00:04)
[2024-01-02 08:11] LABS: Basophils # (auto) 0.05 K/uL (0.00-0.20); Basophils % (auto) 0.2 %; Eosinophils # (auto) 0.01 K/uL (0.00-0.50); Hematocrit (blood only) 30.3 % (37.0-47.0); Hemoglobin 9.6 g/dl (12.0-16.0); Immature Granulocytes # (auto) 0.31 K/uL (0.01-0.20); Immature Granulocytes % (auto) 1.4 %; Lymphocytes % (auto) 4.1 %; Mean Corpuscular Hemoglobin 32.2 pg (25.0-34.0); Mean Corpuscular Hgb Conc 31.7 g/dL (32.0-36.0); Mean Corpuscular Volume 101.7 fL (80.0-100.0); Mean Platelet Volume 10.3 fL (9.4-12.4); Monocytes # (auto) 1.07 K/uL (0.11-0.59); Monocytes % (auto) 4.8 %; Neutrophils % (auto) 89.5 %; Platelet Count 224 K/uL (130-400); RDW Coefficient of Variation 15.1 % (11.5-14.5); Red Blood Count 2.98 M/uL (4.20-5.40); White Blood Count 22.14 K/ul (4.8-10.8)
[2024-01-02 08:17] LABS: BUN Creatinine Ratio 32.6 (10-20); Calcium 8.4 mg/dl (8.6-10.3); Creatinine Clr Calc Pharmacy 44.9 ml/min; Potassium 3.9 mmol/L (3.5-5.1)
[2024-01-02] MEDS: CHOLECALCIFEROL 25 MCG (1000 UNITS) TAB PO SCH (08:26)
[2024-01-02] MEDS: ISOSORBIDE MONO EXTENDED REL 30 MG TABCR PO SCH (08:28)
[2024-01-02] MEDS: ASCORBIC ACID 500 MG TAB PO SCH (08:28)
[2024-01-02] MEDS: CALCIUM 600MG + VIT D 400 IU TAB PO SCH (08:29)
[2024-01-02 09:52] LABS: Appearance Urine Turbid (Clear); Bilirubin Urine Negative (Negative); Blood Urine 3+ (Negative); Color Urine Dark Yellow; Glucose Urine UA Negative (Negative); Ketones Urine Trace (Negative); Leukocyte Esterase Urine Trace (Negative); Nitrite Urine Negative (Negative); Protein Urine 2+ (Negative); Specific Gravity Urine 1.032 (1.000-1.030); Urobilinogen Urine Negative (Negative)
[2024-01-02 10:02] LABS: Amorphous Sediment Urine Present (None Prsent); Bacteria Urine Automated 1+ (None Seen)
--- NOTE | 2024-01-02 15:15 | Orthopedic Consultation ---
Date of Service January 02, 2024 History of Present Illness Reason for Consultation: Back pain, leg pain, previous lumbar surgery. Requesting Physician: . Attending Physician: Joce Vogel DO 88-year-old female with PMH CAD s/p stent, HTN, dyslipidemia, paroxysmal SVT, RA, CKD III, GERD, chronic back and extremity pain and others listed below presented to ER with complaint of right leg weakness today. History obtained from patient, patient's , son at bedside as well as outpatient chart review. States at baseline patient has lift chair to get her up and then can ambulate with use of a walker. She reports chronic mid to lower back pain that waxes and wanes in intensity. Reports chronic bilateral lower extremity pain and intermittent lower extremity numbness that varies from RLE to LLE. On chronic buprenorphine patch. States today woke up and had mid to lower back pain and had noted numbness sensation from below right knee to her right foot. Had difficulty ambulating secondary to this. This morning was on toilet and was unable to get up off toilet secondary to right leg weakness so came to ER. Patient with recent hospitalization 11/22/2023-11/27/2023 for back pain, bilateral leg weakness, ambulatory dysfunction and had MRI thoracic and lumbar spine showing bulging disc, stenosis. Was treated with dexamethasone and left lower extremity cellulitis on Rocephin which was changed to Keflex. Reports resolution of cellulitis. LLE doppler was negative for DVT She finished an additional prednisone taper 2 days ago. She was discharged to [facility] for rehab and has since been at home and completing PT. She reports prior to today was doing well and was able to ambulate. Denies fever/chills, diaphoresis, N/V/D/C, BUTT, dizziness, syncope, vision changes, neck pain, CP, SOB, orthopnea, palpitations, cough, sore throat, choking, otalgia, rhinorrhea, abdominal pain, paresthesias, extremity edema, rashes, dysuria, hematuria, urinary frequency, saddle paresthesias or loss control of bowel or bladder. Per chart review patient seen at [facility] ER 12/20/2023 for episode of hallucinations. CT head at that time was negative. CTA neck showed severe stenosis at left ICA bifurcation 80-90% stenosis of distal L CCA and proximal left ICA and ECA. Patient chose to be discharged home at that time. Per outpatient notes Followed up with [facility] vascular surgery, Dr Newberry on 12/25/2023 for carotid stenosis and AAA, per note they felt her recent hallucination/confusion event was not related to her carotid disease .Consideration for AAA repair was discussed however it is reported patient was not interested in considering until her back pain and possible back surgery is addressed. Patient relates that she developed weakness in the right lower she was unable to mobilize off a toilet and continues to have some numbness tingling and pain radiating to the right lower extremity. Exam reveals the patient to have pain indicated lower lumbar spine, her left leg has what I would consider relatively reasonable and appropriate strength, but her left leg she lacks any ankle dorsiflexion or significant plantarflexion beyond grade 4/5, EHL is also absent. She has a positive straight leg raise on the right, in addition she has the ability to flex her right hip but decreased strength for knee extension in the 4 out of [address] OF THE LUMBAR SPINE January 01, 2024 CLINICAL HISTORY: R> L LE weakness COMPARISON STUDY: Lumbar spine CT November 22, 2023. Lumbar spine MRI November 23, 2023. FINDINGS: A 4.5 cm infrarenal abdominal aortic aneurysm is unchanged in appearance since CT of November 22, 2023. Multiple old lower thoracic and lumbar spine compression fractures are unchanged. For purposes of numbering on this exam, the L5-S1 disc space is assigned to axial image 313 of 365. There are postoperative findings consistent with L2-L4 decompression and pedicle screw fusion. The postoperative appearance is unchanged. No acute lumbar spine fractures are identified. There are no osseous lesions. Moderate to severe multilevel degenerative disc disease and facet arthrosis is noted. Central canal and neural foramen are suboptimally assessed given CT technique. IMPRESSION: 1. No acute lumbar spine fracture or subluxation. 2. No change in appearance of old thoracolumbar spine fracture since CT of November 22, 2023. 3. Stable postoperative findings following L2-L4 decompression and fusion. 4. Moderate to severe multilevel degenerative disc disease and facet arthrosis within the lumbar spine. Suboptimal evaluation of the central canal and neural foramen given CT technique. 5. 4.5 cm infrarenal abdominal aortic aneurysm, unchanged since prior CT. Review of CT scan images from January 01, 2024 was performed, this was separate interpretation, this reveals overall similar findings as compared to the previous lumbar CT scan from November 21 and the lumbar MRI from November 22. Patient also has a combination of some central stenosis beginning at T10 down to the L2 level. \\ Impression: Multilevel lumbar stenosis, with development of right leg lower extremity weakness since last follow-up in office. Plan: I have been informed the patient is not medically cleared for any kind of operative intervention, at this point recommend conservative measures as best can be accomplished, pending the multiple medical issues, surgical intervention is not an option at this time. Allergies Allergy/AdvReac Type Severity Reaction Status Date / Time morphine Allergy Severe Anaphylaxis Verified 01/01/24 15:33 hydroxychloroquine Allergy Intermediate Rash Verified 12/30/23 13:52 lisinopril Allergy Intermediate GI Verified 01/01/24 15:33 symptoms, cough shrimp Allergy Intermediate GI symptoms Verified 12/30/23 13:52 Sulfa (Sulfonamide Allergy Intermediate HIVES Verified 12/30/23 13:52 Antibiotics) pregabalin [From Lyrica] AdvReac Severe Edema Verified 12/30/23 13:52 adhesive AdvReac Intermediate Tape- rash Verified 12/30/23 13:52 benzonatate AdvReac Mild GI upset Verified 12/30/23 13:52 codeine AdvReac Mild Nausea Verified 12/30/23 13:52 Home Medications Medication Instructions Recorded Confirmed Type rosuvastatin 40 mg tablet (Crestor) 40 mg PO HS 11/14/17 01/01/24 History gabapentin 300 mg capsule 300 mg PO BID 12/25/18 01/01/24 History famotidine 20 mg tablet 20 mg PO HS Acid Reflux 05/29/21 01/01/24 History amoxicillin 500 mg capsule 2,000 mg PO UD PRN Prophylaxis 06/22/21 01/01/24 History isosorbide mononitrate 30 mg 30 mg PO QAM 04/19/22 01/01/24 History tablet,extended release 24 hr tofacitinib 11 mg tablet,extended 11 mg PO QAM 04/19/22 01/01/24 History release 24 hr (Xeljanz XR) metoprolol succinate 25 mg 25 mg PO BID 07/10/23 01/01/24 History tablet,extended release 24 hr calcium 500 mg (as 1 tab PO DAILY 11/22/23 01/01/24 History carbonate)-vitamin D3 3.125 mcg (125 unit) tablet povidone (PF) 0.5 % eye drops 2 drp ophthalmic (eye) BID 11/22/23 01/01/24 History (iVizia (PF)) ascorbate calcium (vitamin C) 500 500 mg PO DAILY 12/16/23 01/01/24 History mg tablet buprenorphine 10 mcg/hour weekly 1 patch transdermal Q7D 12/16/23 01/01/24 History transdermal patch cholecalciferol (vitamin D3) 25 25 mcg PO DAILY 12/16/23 01/01/24 History mcg (1,000 unit) capsule dicyclomine 10 mg capsule 10 mg PO BID 12/16/23 01/01/24 History furosemide 20 mg tablet 20 mg PO MOWEFR 12/16/23 01/01/24 History melatonin 5 mg capsule 5 mg PO HS PRN Sleep 12/16/23 01/01/24 History polyethylene glycol 3350 17 gram 17 g PO DAILY 12/16/23 01/01/24 History oral powder packet (Miralax) triamcinolone acetonide 0.1 % 1 applic topical BID PRN Rash 12/16/23 01/01/24 History topical cream vit C-vit H-wqpwwt-gywqakch capsule 1 cap PO DAILY 12/16/23 01/01/24 History aspirin 81 mg tablet,delayed 81 mg PO MOWEFR 01/01/24 01/01/24 History release (Adult Low Dose Aspirin) Past Med/Surg History Problem List (Updated 01/01/24 @ 15:26 by Bhumi Patel PA-C) Confusion (Acute) 12/20/23 Abnormal ankle brachial index (DOROTHEA) (Acute) ISTAP type 3 skin tear of right hand (Acute) 12/16/23 Traumatic open wound of left lower leg with delayed healing (Acute) 12/16/23 Low back pain radiating to right lower extremity Lumbar radiculopathy, right Degenerative lumbar spinal stenosis AAA (abdominal aortic aneurysm) without rupture Cellulitis of lower extremity 11/25/23 Encephalopathy 11/22/23 Back pain Paroxysmal supraventricular tachycardia Chronic diastolic (congestive) heart failure Acute kidney injury superimposed on CKD 11/22/23 Ambulatory dysfunction Elevated troponin I level (Acute) 11/22/23 BERNADINE (acute kidney injury) (Acute) 11/22/23 Bilateral leg weakness (Acute) 11/22/23 Hypertension Hx of rheumatoid arthritis CAD (coronary artery disease) f/u zachary bergeron Hematoma of right lower leg (Acute) 07/18/23 Greater trochanteric pain syndrome Opioid dependence Greater trochanteric bursitis of left hip Rotator cuff arthropathy of left shoulder Mechanical low back pain Medication monitoring encounter Acquired foot deformity Laceration of right knee (Acute) 08/16/21 Pressure ulcer of toe of left foot, stage 4 07/12/21 T12 compression fracture Fever (Acute) 06/23/21 Weakness (Acute) 06/23/21 Lower extremity edema (Chronic) 06/21/21 Acquired hammer toe (Chronic) Neuropathy (Chronic) Stage IV pressure ulcer (Acute) 05/29/21 Pes anserine bursitis Status post right knee replacement Traumatic open wound of right lower leg (Acute) 02/21/21 Immunosuppression due to chronic steroid use Traumatic open wound of right lower leg with delayed healing (Acute) 12/15/20 Laceration of elbow, left (Acute) 11/23/20 Dehydration (Acute) 10/27/20 Pneumonia due to 2019 novel coronavirus (Acute) 10/27/20 Acute respiratory failure with hypoxemia (Acute) 10/27/20 Acute respiratory failure with hypoxia 10/27/20 Multifocal pneumonia 10/27/20 Rheumatoid arthritis (Acute) SARS-CoV-2 positive (Acute) 10/17/20 Weakness (Acute) 10/17/20 Fall 10/17/20 Bilateral knee pain History of total right knee replacement Postural imbalance 08/22/20 Entrapment neuropathy of peripheral nerve of lower extremity Venous insufficiency of both lower extremities (Chronic) Traumatic open wound of right lower leg (Acute) 04/12/20 Pes anserinus tendonitis of right lower extremity Left knee DJD Traumatic wound (Acute) 11/11/19 Left knee pain (Chronic) Postoperative seroma (Chronic) L2-4 Lumbar postlaminectomy syndrome (Chronic) Acquired right foot 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 Lumbar compression fracture (Chronic) L1 acute on chronic MRI 03/[address] 10/17/2020 Pes anserine bursitis Right knee pain Degenerative joint disease of knee Myofascial pain (Chronic) Sacroiliitis (Chronic) 11/20/18 Cervical radiculopathy (Chronic) Greater trochanteric bursitis (Chronic) Lumbago (Chronic) Lumbar radiculitis (Chronic) Peripheral neuropathy (Chronic) Facet syndrome, lumbar (Chronic) CAD (coronary artery disease) (Chronic) Osteoarthritis (Chronic) Myocardial infarct, 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 This results in 80-90% stenosis of the distal left common carotid artery and the proximal left internal and external carotid arteries Sacral neurostimulator in situ instructed to bring remote dos Hx of supraventricular tachycardia follows with [facility] cardiology AAA (abdominal aortic aneurysm) Abdomen/Pelvis CT 11/2023: Stable Right infrarenal aortic aneurysm measures 44 mm GERD (gastroesophageal reflux disease) Hx of migraines Hx of myocardial infarction (~2008) Lumbar spinal stenosis Postlaminectomy syndrome, lumbar region no current issues Dyslipidemia History of COVID-19 2020- [facility] admission with acute respiratory failure > no residual effects Neuropathy in both legs, rt>lt Right knee pain Status post TKA taking shots due to bursitis (no shots for at least 3 months) Surgical History Hx of toe surgery Bilateral Feet Second and Third Digit Flexor Tenotomy(Bilateral) Hx of colonoscopy Hx of heart artery stent ~2008, [facility], x1 stent, 2/2 [place] ~2011, [facility] [place], x1 stent, 2/2 heart symptoms; f/u zachary bergeron Hx of cardiac cath ~2008, [facility], x1 stent, 2/2 [place] ~2011, [facility] [place], x1 stent, 2/2 heart symptoms; f/u zachary bergeron History of total shoulder replacement Right History of loop recorder no longer working > follows with Dr Bergeron S/P total knee arthroplasty Right History of lumbosacral spine surgery 50+ years for first one, 2nd one 2014, both lower back; flexible rainer and does lesi History of PTCA Remote hx "years ago" History of hysterectomy History of breast biopsy History of tonsillectomy History of adenoidectomy History of angioplasty Family History Father Myocardial infarction Brother Myocardial infarction Other Family history non-contributory Denies family history of Ovarian cancer Prostate cancer Breast cancer Colorectal cancer Social History Smoking Status: Never smoker Tobacco Type: Cigarettes Second Hand Exposure: No; Do You Dip or Chew Tobacco: No; Hx Alcohol Use: No Hx Substance Use: No Preferred Language: Khmer Communication Ability: Effective Visual Impairment: Limited Hearing Ability: Normal Arrt Technologist Required: No Beliefs That Will Affect Care: None marital status: Current Living Situation: Spouse current occupational status: retired How many Children do You have: 7 Other Information That Helps Us Care for You: No Feels Safe at Home: Yes Diet: regular caffeine: No during the past year weight has: remained stable Assistive Devices: Lift Chair and Walker Review of Systems All systems reviewed & are unremarkable except as noted in HPI & below. Physical Exam . Results & Data Results & Data Laboratory Results . Diagnostic Findings . PG Care Time/CCT Total # of Minutes Spent Total Time Spent with Patient: Total time spent is greater than 50% in coordination of care (as documented) at patient's floor/unit and/or counseling patient: Coding Level of Care Code 99516 IN/OBS CONSULT LVL 3,45M
--- NOTE | 2024-01-02 15:44 | Hospitalist Progress Note ---
Date of Service January 02, 2024 Assessment & Plan (1) Acute sepsis: (2) Urinary tract infection after period of immobility: (3) Right upper lobe pneumonia: (4) Acute on chronic diastolic congestive heart failure: (5) Ambulatory dysfunction: (6) Lumbar postlaminectomy syndrome: (7) Degenerative disc disease, lumbar: (8) Paroxysmal supraventricular tachycardia: (9) Carotid artery stenosis: (10) Neuropathy: Plan Patient presents with acute ambulatory dysfunction with known severe degenerative spine disease and postlaminectomy syndrome. Patient's leukocytosis has progressed over the last 24 hours. Raising suspicion for infection rather than from steroid use that was discontinued a few days ago. Review of chest x-ray and urinalysis raise a high suspicion for urinary tract infection and pneumonia Patient with acute sepsis as evidenced by leukocytosis, weakness, low-grade fever and hypotension. Rocephin and doxycycline for treatment of UTI and community-acquired pneumonia Follow urine culture Therapies Reviewed orthopedic consultation. Patient not a candidate for any additional surgical spine surgery will continue with pain management and therapies Hold ImdurDue to hypotension Decrease metoprolol dosing due to hypotension with hold parameters Continue current buprenorphine patch for pain control, as needed oxycodone for breakthrough pain No additional diuretics at this time due to hypotension despite findings on chest x-ray, patient denies shortness of breath, no oxygen requirement Son at bedside and updated Admission and Anticipated Discharge Date Admission Date: January 01, 2024 Subjective Patient still complaining of weakness and difficulty with standing. Denies fever at home. No cough, no shortness of breath, no chest pain. No urinary complaints Physical Exam Physical Exam: Constitutional: Alert, nontoxic HEENT: Mucous membranes moist. Lungs: Decreased breath sounds bilaterally, crackles at the bases bilaterally, crackles with some rhonchi right upper lobe CV: S1-S2, regular Abdomen: Soft, nontender, nondistended Extremities: No significant edema, chronic lower extremity venous stasis dermatitis Neuro: No focal deficits, lower extremity weakness Right greater than left Psych: Cooperative, normal mood Results & Data Results & Data Vital Signs (Past 12 Hours) Vital Signs Temp Pulse Pulse Resp BP Pulse Ox O2 Del Method 01/02/24 15:22 36.5 C 66 20 99/66 L 93 Room Air 01/02/24 15:07 75 01/02/24 11:33 95/57 L 01/02/24 11:20 36.8 C 73 20 90/50 L 92 Room Air 01/02/24 08:25 109/68 01/02/24 07:54 37.4 C 87 20 92/57 L 90 Room Air 01/02/24 07:46 Room Air 01/02/24 07:26 91 H 01/02/24 04:43 36.7 C 93 H 20 125/74 97 Room Air Diagnostic Findings Reviewed imaging, laboratory and diagnostic studies. Pertinent findings as below. Personally reviewed chest x-ray, bilateral congestion, consolidation right upper lobe WBCs 22.1, increasing Hemoglobin 9.6, slight decrease Platelets 224 Electrolytes stable Creatinine 0.86 Urinalysis markedly abnormal (9) Carotid artery stenosis Laterality: unspecified laterality Qualified Code(s): I65.29 - Occlusion and stenosis of unspecified carotid artery
[2024-01-02] MEDS: MELATONIN 3 MG TAB PO PRN (20:39)
[2024-01-02] MEDS: SENNA 8.6 MG TAB PO SCH (20:39)
[2024-01-02] MEDS: DOXYCYCLINE HYCLATE 100 MG CAP PO SCH (20:39)
[2024-01-03] MEDS: METOPROLOL SUCC 25MG EXT REL TAB PO SCH (09:45)
[2024-01-03] MEDS: ASPIRIN 81 MG ECTAB PO SCH (09:45)
[2024-01-03] MEDS: POLYETHYLENE (MIRALAX) 17 GM PACK PO SCH (09:46)
[2024-01-03] MEDS: FUROSEMIDE 20 MG TAB PO SCH (09:46)
[2024-01-03] MEDS: CALCIUM 600MG + VIT D 400 IU TAB PO SCH (11:36)
--- NOTE | 2024-01-03 16:12 | Hospitalist Progress Note ---
Date of Service January 03, 2024 Assessment & Plan (1) Acute sepsis: (2) Urinary tract infection after period of immobility: (3) Right upper lobe pneumonia: (4) Acute on chronic diastolic congestive heart failure: (5) Ambulatory dysfunction: (6) Lumbar postlaminectomy syndrome: (7) Degenerative disc disease, lumbar: (8) Paroxysmal supraventricular tachycardia: (9) Carotid artery stenosis: (10) Neuropathy: Plan Patient presents with acute ambulatory dysfunction with known severe degenerative spine disease and postlaminectomy syndrome. Multilevel lumbar stenosis with radiculopathy Ambulatory dysfunction Degenerative disc disease --Lumbar CT: No acute lumbar spine fracture or subluxation. No change in appearance of old thoracolumbar spine fracture since CT of November 22, 2023. Stable postoperative findings following L2-L4 decompression and fusion. Moderate to severe multilevel degenerative disc disease and facet arthrosis within the lumbar spine. Suboptimal evaluation of the central canal and neural foramen given CT technique. -- Pain control --Fall precautions, PT OT --Appreciate orthopedic spine --No plan for surgical intervention currently --Needs rehab placement --Needs follow-up with orthopedic spine on discharge Possible pneumonia --CXR:Cardiomegaly with pulmonary vascular congestion. Dense airspace consolidation is seen at the right apex. This is new from 12/20/2023. Correlate clinically for evidence of pneumonia. Radiographic follow-up to resolution is recommended. -- Denies any respiratory symptoms -- Check procalcitonin -- Will repeat chest x-ray tomorrow --Empirically on Rocephin, doxycycline -- Possible UTI --Urine culture--preliminary not contributory --Empirically on Rocephin -- Denies any dysuria, hematuria Leukocytosis Likely secondary to recent steroid use Monitor Urinary retention Continue Kinney catheter May need follow-up with urology as outpatient KD III Cr: 0.86 Creatinine at baseline Monitor renal function CAD History CAD s/p stent Continue aspirin, metoprolol succinate, isosorbide, rosuvastatin Chronic diastolic (congestive) heart failure: Appears euvolemic Continue home Lasix Monitor volume status Hx of rheumatoid arthritis: Continue Xeljanz Paroxysmal supraventricular tachycardia: Continue metoprolol succinate AAA: Carotid stenosis CT Lumbar spine: 4.5 cm infrarenal abdominal aortic aneurysm, unchanged since prior CT Prior CTA neck with severe stenosis at left ICA bifurcation 80-90% stenosis of distal L CCA and proximal left ICA and ECA. [facility]ed up with [facility] [place], Dr Newberry on 12/25/2023 for carotid stenosis and AAA, per note they felt her recent hallucination/confusion event was not related to her carotid disease and there was consideration for AAA repair, however it is reported patient was not interested in considering until her back pain and possible back surgery is addressed. DVT Px Heparin SQ CODE STATUS DNR/DNI Disposition Rehab as able Admission and Anticipated Discharge Date Admission Date: January 01, 2024 Subjective Patient is seen and examined at bedside States having back pain radiating down her leg associates with right leg weakness Also reports chronic numbness and tingling of lower extremity Denies any chest pain, dyspnea, nausea, vomiting, abdominal pain, dysuria, hematuria, cough Patient was noted to have urinary retention overnight Review of Systems Review of Systems: All systems reviewed & are unremarkable except as noted in Subjective Physical Exam Physical Exam: Physical Exam: Vitals signs as noted above General Appearance:Moderately built and nourished, no apparent distress Head: normocephalic, Atraumatic Eyes: normal inspection, EOMI Neck: supple, Trachea midline Respiratory/Chest: Decreased breath sounds, minimal basal crackles, No accessory muscle use Cardiovascular: S1, S2, No murmur Abdomen/GI:Soft, Non tender, Bowel sounds present Extremities/Musculoskeletal:normal inspection, no edema, chronic venous stasis changes Neurologic/Psych:AAOX3, grossly no focal neurological deficits Skin: normal color, warm Results & Data Results & Data Vital Signs (Past 12 Hours) Vital Signs Temp Pulse Pulse Resp BP Pulse Ox O2 Del Method 01/03/24 14:45 77 01/03/24 11:32 36.9 C 88 18 127/77 96 Room Air 01/03/24 09:45 Room Air 01/03/24 07:51 36.4 C L 68 18 118/74 95 Room Air 01/03/24 07:23 66 (9) Carotid artery stenosis Laterality: unspecified laterality Qualified Code(s): I65.29 - Occlusion and stenosis of unspecified carotid artery
[2024-01-03] MEDS: BUPRENORPHINE 10 MCG/HR TDSY TD SCH (23:05)
[2024-01-04 06:55] LABS: Hematocrit (blood only) 31.1 % (37.0-47.0); Hemoglobin 9.8 g/dl (12.0-16.0); Mean Corpuscular Hgb Conc 31.5 g/dL (32.0-36.0); Mean Corpuscular Volume 101.6 fL (80.0-100.0); Mean Platelet Volume 10.3 fL (9.4-12.4); Platelet Count 224 K/uL (130-400); RDW Coefficient of Variation 14.8 % (11.5-14.5); RDW Standard Deviation 55.9 fL (36.4-46.3); Red Blood Count 3.06 M/uL (4.20-5.40); White Blood Count 7.97 K/ul (4.8-10.8)
[2024-01-04 07:14] LABS: BUN Creatinine Ratio 21.3 (10-20); Creatinine Clr Calc Pharmacy 47.1 ml/min; Potassium 4.3 mmol/L (3.5-5.1)
--- NOTE | 2024-01-04 08:12 | XRay Report ---
SINGLE VIEW CHEST CLINICAL HISTORY: Follow-up right upper lobe consolidation. FINDINGS: An AP, portable, upright chest radiograph is compared to study dated 01/01/2024. The examin ation is degraded by portable technique, apical lordotic positioning, and patient rotation. An elect ronic device projects over the left lower chest. The heart is enlarged. Pulmonary vascular congestion has improved from previous. The left lung appears clear. Right upper lobe opacities are again noted. This is likely partially cleared from 01/01/2024 but is suboptimally assessed due to patient rotatio n. No large pleural effusion or pneumothorax is seen. The skeletal structures are osteopenic. The bon y thorax is grossly intact. A right shoulder arthroplasty is in place. Arthritic change is noted in t he left shoulder. IMPRESSION: 1. Cardiomegaly. Pulmonary vascular congestion has improved from previous. 2. Right upper lobe consolidation has likely partially cleared as compared to 01/01/2024. This is sub optimally assessed due to the degree of patient rotation. Consider a repeat PA and lateral examinatio n when the patient is clinically able. ACT 112: Negative or not required by law. Electronically signed by: Preston Hammonds M.D. 01/04/2024 8:10 AM
--- NOTE | 2024-01-04 13:40 | Hospitalist Progress Note ---
Date of Service January 04, 2024 Assessment & Plan (1) Acute sepsis: (2) Urinary tract infection after period of immobility: (3) Right upper lobe pneumonia: (4) Acute on chronic diastolic congestive heart failure: (5) Ambulatory dysfunction: (6) Lumbar postlaminectomy syndrome: (7) Degenerative disc disease, lumbar: (8) Paroxysmal supraventricular tachycardia: (9) Carotid artery stenosis: (10) Neuropathy: Plan Patient presents with acute ambulatory dysfunction with known severe degenerative spine disease and postlaminectomy syndrome. Multilevel lumbar stenosis with radiculopathy Ambulatory dysfunction Degenerative disc disease --Lumbar CT: No acute lumbar spine fracture or subluxation. No change in appearance of old thoracolumbar spine fracture since CT of November 22, 2023. Stable postoperative findings following L2-L4 decompression and fusion. Moderate to severe multilevel degenerative disc disease and facet arthrosis within the lumbar spine. Suboptimal evaluation of the central canal and neural foramen given CT technique. -- Pain control --Fall precautions, PT OT --Appreciate orthopedic spine --No plan for surgical intervention currently --Needs rehab placement --Needs follow-up with orthopedic spine on discharge Continue current management Waiting for rehab placement Possible pneumonia --CXR:Cardiomegaly with pulmonary vascular congestion. Dense airspace consolidation is seen at the right apex. This is new from 12/20/2023. Correlate clinically for evidence of pneumonia. Radiographic follow-up to resolution is recommended. -- Denies any respiratory symptoms -- Normal procalcitonin -- repeat chest x-ray showed partially cleared right upper lobe consolidation --Empirically on Rocephin, doxycycline Transition to oral antibiotics to complete the course as able Leukocytosis resolved -- Possible UTI--ruled out --Urine culture--noncontributory -- Denies any dysuria, hematuria Urinary retention Continue Kinney catheter May need follow-up with urology as outpatient Voiding trial as outpatient KD III Cr: 0.8 Creatinine at baseline Monitor renal function CAD History CAD s/p stent Continue aspirin, metoprolol succinate, isosorbide, rosuvastatin Chronic diastolic (congestive) heart failure: Appears euvolemic Continue home Lasix Monitor volume status Hx of rheumatoid arthritis: Continue Xeljanz Paroxysmal supraventricular tachycardia: Continue metoprolol succinate AAA: Carotid stenosis CT Lumbar spine: 4.5 cm infrarenal abdominal aortic aneurysm, unchanged since prior CT Prior CTA neck with severe stenosis at left ICA bifurcation 80-90% stenosis of distal L CCA and proximal left ICA and ECA. Followed up with [facility] [place] vascular surgery, Dr Newberry on 12/25/2023 for carotid stenosis and AAA, per note they felt her recent hallucination/confusion event was not related to her carotid disease and there was consideration for AAA repair, however it is reported patient was not interested in considering until her back pain and possible back surgery is addressed. DVT Px Heparin SQ CODE STATUS DNR/DNI Disposition Rehab when accepted Admission and Anticipated Discharge Date Admission Date: January 01, 2024 Subjective Patient is seen and examined at bedside Back pain is controlled No new complaints today Waiting for rehab placement Discussed with orthopedic surgery today Family at bedside Denies any chest pain, dyspnea, nausea, vomiting, abdominal pain, dysuria, hematuria, cough Review of Systems Review of Systems: All systems reviewed & are unremarkable except as noted in Subjective Physical Exam Physical Exam: Physical Exam: Vitals signs as noted above General Appearance:Moderately built and nourished, no apparent distress Head: normocephalic, Atraumatic Eyes: normal inspection, EOMI Neck: supple, Trachea midline Respiratory/Chest: Decreased breath sounds, minimal basal crackles, No accessory muscle use Cardiovascular: S1, S2, No murmur Abdomen/GI:Soft, Non tender, Bowel sounds present Extremities/Musculoskeletal:normal inspection, no edema, chronic venous stasis changes Neurologic/Psych:AAOX3, grossly no focal neurological deficits Skin: normal color, warm Results & Data Results & Data Vital Signs (Past 12 Hours) Vital Signs Temp Pulse Pulse Resp BP Pulse Ox O2 Del Method 01/04/24 11:55 37.2 C 68 18 117/75 94 Room Air 01/04/24 07:42 36.9 C 70 18 110/69 93 Room Air 01/04/24 07:30 Room Air 01/04/24 07:03 74 Laboratory Results Short CBC 01/04/24 Range/Units 06:16 WBC 7.97 (4.8-10.8) K/ul Hgb 9.8 L (12.0-16.0) g/dl Hct 31.1 L (37.0-47.0) % Plt Count 224 (130-400) K/uL BMP 01/04/24 06:16 Sodium 142 Potassium 4.3 Chloride 108 H Carbon Dioxide 28 BUN 17 Creatinine 0.80 Glucose 97 Calcium 9.0 (9) Carotid artery stenosis Laterality: unspecified laterality Qualified Code(s): I65.29 - Occlusion and stenosis of unspecified carotid artery
[2024-01-05 08:15] LABS: BUN Creatinine Ratio 20.3 (10-20); Calcium 9.2 mg/dl (8.6-10.3); Hematocrit (blood only) 28.8 % (37.0-47.0); Hemoglobin 9.3 g/dl (12.0-16.0); Magnesium 1.9 mg/dl (1.7-2.4); Mean Corpuscular Hemoglobin 32.1 pg (25.0-34.0); Mean Corpuscular Hgb Conc 32.3 g/dL (32.0-36.0); Mean Corpuscular Volume 99.3 fL (80.0-100.0); Platelet Count 244 K/uL (130-400); Potassium 4.5 mmol/L (3.5-5.1); RDW Coefficient of Variation 14.6 % (11.5-14.5); RDW Standard Deviation 53.5 fL (36.4-46.3); White Blood Count 5.62 K/ul (4.8-10.8)
--- NOTE | 2024-01-05 15:27 | Hospitalist Progress Note ---
Date of Service January 05, 2024 Assessment & Plan (1) Acute sepsis: (2) Urinary tract infection after period of immobility: (3) Right upper lobe pneumonia: (4) Acute on chronic diastolic congestive heart failure: (5) Ambulatory dysfunction: (6) Lumbar postlaminectomy syndrome: (7) Degenerative disc disease, lumbar: (8) Paroxysmal supraventricular tachycardia: (9) Neuropathy: Plan Ms. Thomas is 88-year-old female with PMH CAD s/p stent, HTN, dyslipidemia, paroxysmal SVT, RA, CKD III, GERD, chronic back and extremity pain and others listed below presented to ER with complaint of right leg weakness on 12/31. Patient with recent hospitalization 11/22/2023-11/27/2023 for back pain, bilateral leg weakness, ambulatory dysfunction and had MRI thoracic and lumbar spine showing bulging disc, stenosis. Was seen by ortho spine, Dr. Shepherd, and treated with dexamethasone. Patient completed course of keflex for cellulitis. Per chart review patient seen at [facility] ER 12/20/2023 for episode of hallucinations. CT head at that time was negative. CTA neck showed severe stenosis at left ICA bifurcation 80-90% stenosis of distal L CCA and proximal left ICA and ECA. Followed up with [facility] vascular surgery, Dr Newberry on 12/25/2023 for carotid stenosis and AAA, per note they felt her recent hallucination/confusion event was not related to her carotid disease. Consideration for AAA repair was discussed however it is reported patient was not interested in considering until her back pain and possible back surgery is addressed. #Multilevel lumbar stenosis with radiculopathy c/b RLE weakness #Ambulatory dysfunction #Severe Degenerative disc disease --Lumbar CT: No acute lumbar spine fracture or subluxation. No change in appearance of old thoracolumbar spine fracture since CT of November 22, 2023. Stable postoperative findings following L2-L4 decompression and fusion. Moderate to severe multilevel degenerative disc disease and facet arthrosis within the lumbar spine. Suboptimal evaluation of the central canal and neural foramen given CT technique. -- Pain control --Fall precautions, PT OT --Appreciate orthopedic spine --No plan for surgical intervention currently --Needs rehab placement --Needs follow-up with orthopedic spine on discharge Continue current management Waiting for rehab placement #sepsis ruled out #Ruled out pneumonia, likely atelectasis --CXR:Cardiomegaly with pulmonary vascular congestion. Dense airspace consolidation is seen at the right apex. This is new from 12/20/2023. Correlate clinically for evidence of pneumonia. Radiographic follow-up to resolution is recommended. -- Denies any respiratory symptoms -- Normal procalcitonin, no URI symptoms Transition to augmentin given gamma strep in UA as well Leukocytosis resolved, thought to be 2/2 to steroids #Gamma strep UTI #Acute urinary retention gamma strep in urine Will transition abx to augmentin void trial #CKDIII Cr: 0.8 Creatinine at baseline Monitor renal function #CAD History CAD s/p stent Continue aspirin, metoprolol succinate, isosorbide, rosuvastatin #Chronic diastolic (congestive) heart failure: Appears euvolemic Continue home Lasix Monitor volume status #rheumatoid arthritis: Continue Xeljanz #Paroxysmal supraventricular tachycardia: Continue metoprolol succinate #AAA: #Carotid stenosis CT Lumbar spine: 4.5 cm infrarenal abdominal aortic aneurysm, unchanged since prior CT Prior CTA neck with severe stenosis at left ICA bifurcation 80-90% stenosis of distal L CCA and proximal left ICA and ECA. Followed up with [facility] vascular surgery, Dr Newberry on 12/25/2023 for carotid stenosis and AAA, per note they felt her recent hallucination/confusion event was not related to her carotid disease and there was consideration for AAA repair, however it is reported patient was not interested in considering until her back pain and possible back surgery is addressed. Will need OP follow up to address DVT Px Heparin SQ CODE STATUS DNR/DNI Disposition Rehab when accepted Admission and Anticipated Discharge Date Admission Date: January 01, 2024 Subjective NAEO Reports feeling stable at this time denies any cough, congestion or upper respiratory symptoms previously or now able to ambulate with assistive device and assist to bathroom Physical Exam Constitutional: WD/WN, vitals as above Respiratory: normal respiratory effort, lungs clear to auscultation Cardiovascular: RRR, no murmur, no edema Gastrointestinal (Abdomen): normal bowel sounds, soft, nontender, no hepatosplenomegaly Results & Data Results & Data Vital Signs (Past 12 Hours) Vital Signs Temp Pulse Pulse Resp BP BP Pulse Ox 01/05/24 14:06 87 01/05/24 12:24 36.8 C 51 L 18 134/78 95 01/05/24 11:30 01/05/24 09:00 01/05/24 07:53 36.9 C 69 18 136/80 94 01/05/24 07:33 59 L O2 Del Method 01/05/24 14:06 01/05/24 12:24 Room Air 01/05/24 11:30 Room Air 01/05/24 09:00 Room Air 01/05/24 07:53 Room Air 01/05/24 07:33
[2024-01-05 15:38] LABS: Appearance Urine Cloudy (Clear); Bacteria Urine Automated None Seen (None Seen); Bilirubin Urine Negative (Negative); Blood Urine 3+ (Negative); Color Urine Yellow; Glucose Urine UA Negative (Negative); Ketones Urine Negative (Negative); Leukocyte Esterase Urine 2+ (Negative); Nitrite Urine Negative (Negative); Protein Urine 1+ (Negative); RBC Urine Automated >20 /hpf (0-2); Specific Gravity Urine 1.016 (1.000-1.030); Urobilinogen Urine Negative (Negative); pH Urine 7.5 (4.5-7.5)
[2024-01-05] MEDS: AMOXICILLIN/CLAVULANATE 500 MG TAB PO SCH (17:34)
[2024-01-05] MEDS: buprenorphine HCL 2 MG SUBL SL PRN (21:06)
[2024-01-06] MEDS: ONDANSETRON INJ 2 MG/ML 2 ML VIAL IV PRN (09:27)
[2024-01-06 11:48] LABS: Folate (Folic Acid),Ser orPlas 11.07 ng/ml (>5.38)
[2024-01-06] MEDS: [UNRECOGNIZED DRUG - REMARK] SCH (13:58)
[2024-01-06] MEDS: BUPRENORPHINE 5 MCG/HR TDSY TD SCH (13:59)
--- NOTE | 2024-01-06 17:02 | Hospitalist Progress Note ---
Date of Service January 06, 2024 Assessment & Plan (1) Acute sepsis: (2) Urinary tract infection after period of immobility: (3) Right upper lobe pneumonia: (4) Acute on chronic diastolic congestive heart failure: (5) Ambulatory dysfunction: (6) Lumbar postlaminectomy syndrome: (7) Degenerative disc disease, lumbar: (8) Paroxysmal supraventricular tachycardia: (9) Neuropathy: Plan Ms. Thomas is 88-year-old female with PMH CAD s/p stent, HTN, dyslipidemia, paroxysmal SVT, RA, CKD III, GERD, chronic back and extremity pain and others listed below presented to ER with complaint of right leg weakness on 12/31. Patient with recent hospitalization 11/22/2023-11/27/2023 for back pain, bilateral leg weakness, ambulatory dysfunction and had MRI thoracic and lumbar spine showing bulging disc, stenosis. Was seen by ortho spine, Dr. Shepherd, and treated with dexamethasone. Patient completed course of keflex for cellulitis. Per chart review patient seen at [facility] ER 12/20/2023 for episode of hallucinations. CT head at that time was negative. CTA neck showed severe stenosis at left ICA bifurcation 80-90% stenosis of distal L CCA and proximal left ICA and ECA. [place] [facility] [place], Dr Newberry on 12/25/2023 for carotid stenosis and AAA, per note they felt her recent hallucination/confusion event was not related to her carotid disease. Consideration for AAA repair was discussed however it is reported patient was not interested in considering until her back pain and possible back surgery is addressed. #Multilevel lumbar stenosis with radiculopathy c/b RLE weakness #Ambulatory dysfunction #Severe Degenerative disc disease --Lumbar CT: No acute lumbar spine fracture or subluxation. No change in appearance of old thoracolumbar spine fracture since CT of November 22, 2023. Stable postoperative findings following L2-L4 decompression and fusion. Moderate to severe multilevel degenerative disc disease and facet arthrosis within the lumbar spine. Suboptimal evaluation of the central canal and neural foramen given CT technique. -- Pain control - confirmed patch dosing with pain Anthony Lion: 15mcg q3d -Tramadol 25mg q6h for breakthrough --Fall precautions, PT OT:dispo to rehab --Appreciate orthopedic spine --No plan for surgical intervention currently --Needs rehab placement --Needs follow-up with orthopedic spine on discharge -Spoke to Dr. Shepherd who will clarify the plan as to patient pursuing surgery with Continue current management Waiting for rehab placement #sepsis ruled out #Ruled out pneumonia, likely atelectasis --CXR:Cardiomegaly with pulmonary vascular congestion. Dense airspace consolidation is seen at the right apex. This is new from 12/20/2023. Correlate clinically for evidence of pneumonia. Radiographic follow-up to resolution is recommended. -- Denies any respiratory symptoms -- Normal procalcitonin, no URI symptoms Transition to augmentin given gamma strep in UA as well Leukocytosis resolved, thought to be 2/2 to steroids #Gamma strep UTI #Acute urinary retention gamma strep in urine Continue augmentin void trial: successful #CKDIII Cr: 0.8 Creatinine at baseline Monitor renal function #CAD History CAD s/p stent Continue aspirin, metoprolol succinate, isosorbide, rosuvastatin #Chronic diastolic (congestive) heart failure: Appears euvolemic Continue home Lasix Monitor volume status #rheumatoid arthritis: Continue Xeljanz #Paroxysmal supraventricular tachycardia: Continue metoprolol succinate #AAA: #Carotid stenosis CT Lumbar spine: 4.5 cm infrarenal abdominal aortic aneurysm, unchanged since prior CT Prior CTA neck with severe stenosis at left ICA bifurcation 80-90% stenosis of distal L CCA and proximal left ICA and ECA. [place] [facility] [place], Dr Newberry on 12/25/2023 for carotid stenosis and AAA, per note they felt her recent hallucination/confusion event was not related to her carotid disease and there was consideration for AAA repair, however it is reported patient was not interested in considering until her back pain and possible back surgery is addressed. Will need OP follow up to address Per vascular note on 12/24: "The patient was counseled regarding the pathophysiology and natural history of carotid disease, as well as the symptoms of CVA/TIA/amaurosis fugax. Patient's recent neuro event not related to her carotid vascular disease Patient has asymptomatic Left CCA/ICA high grade stenosis. What is of interest is that in 2020, patient had largely unremarkable carotid duplex, <50% LICA stenosis with strong upstroke on ICA waveforms The patient was counseled regarding the pathophysiology and natural history of abdominal aortic aneurysms, as well as the signs of rupture and the need to initiate emergency medical attention in that situation. OK, from vascular surgery standpoint, to have up-coming back surgery Continue ASA 81 mg for platelet inhibition/atherosclerosis Continue Crestor 40 mg for dyslipidemia/hyperlipidemia & pleiotropic benefits of statins" DVT Px Heparin SQ CODE STATUS DNR/DNI Disposition Rehab when accepted Admission and Anticipated Discharge Date Admission Date: January 01, 2024 Subjective Received Subutex tab over night and feeling tired today Pain is predominately in RLE and stable this morning, but bothersome intermittently discussed patch dosing with Anthony Lion-->prescribed 15mcg at home agreeable to further conservative management Physical Exam Constitutional: WD/WN, vitals as above Respiratory: normal respiratory effort, lungs clear to auscultation Cardiovascular: RRR, no murmur, no edema Results & Data Results & Data Vital Signs (Past 12 Hours) Vital Signs Temp Pulse Pulse Resp BP BP Pulse Ox 01/06/24 16:00 68 01/06/24 12:04 36.8 C 65 18 119/75 94 01/06/24 07:47 36.5 C 76 18 118/74 95 01/06/24 07:28 68 O2 Del Method 01/06/24 16:00 01/06/24 12:04 Room Air 01/06/24 07:47 Room Air 01/06/24 07:28 Medications Administered Home Medications Medication Instructions Recorded Confirmed Last Taken rosuvastatin 40 mg tablet (Crestor) 40 mg PO HS 11/14/17 01/01/24 11/21/23 gabapentin 300 mg capsule 300 mg PO BID 12/25/18 01/01/24 11/21/23 famotidine 20 mg tablet 20 mg PO HS Acid Reflux 05/29/21 01/01/24 11/21/23 amoxicillin 500 mg capsule 2,000 mg PO UD PRN Prophylaxis 06/22/21 01/01/24 Unknown isosorbide mononitrate 30 mg 30 mg PO QAM 04/19/22 01/01/24 01/01/24 tablet,extended release 24 hr tofacitinib 11 mg tablet,extended 11 mg PO QAM 04/19/22 01/01/24 11/21/23 release 24 hr (Xeljanz XR) metoprolol succinate 25 mg 25 mg PO BID 07/10/23 01/01/24 01/01/24 tablet,extended release 24 hr calcium 500 mg (as 1 tab PO DAILY 11/22/23 01/01/24 11/21/23 carbonate)-vitamin D3 3.125 mcg (125 unit) tablet povidone (PF) 0.5 % eye drops 2 drp ophthalmic (eye) BID 11/22/23 01/01/24 Unknown (iVizia (PF)) ascorbate calcium (vitamin C) 500 500 mg PO DAILY 12/16/23 01/01/24 Unknown mg tablet cholecalciferol (vitamin D3) 25 25 mcg PO DAILY 12/16/23 01/01/24 Unknown mcg (1,000 unit) capsule dicyclomine 10 mg capsule 10 mg PO BID 12/16/23 01/01/24 Unknown furosemide 20 mg tablet 20 mg PO MOWEFR 12/16/23 01/01/24 12/30/23 melatonin 5 mg capsule 5 mg PO HS PRN Sleep 12/16/23 01/01/24 Unknown polyethylene glycol 3350 17 gram 17 g PO DAILY 12/16/23 01/01/24 Unknown oral powder packet (Miralax) triamcinolone acetonide 0.1 % 1 applic topical BID PRN Rash 12/16/23 01/01/24 Unknown topical cream vit C-vit [id number] capsule 1 cap PO DAILY 12/16/23 01/01/24 Unknown aspirin 81 mg tablet,delayed 81 mg PO MOWEFR 01/01/24 01/01/24 Unknown release (Adult Low Dose Aspirin) buprenorphine 15 mcg/hour weekly 1 patch transdermal Q7D #4 ea 01/06/24 Unknown transdermal patch (Butrans) Active Medications Generic Name Dose Route Start Last Admin Trade Name Allison PRN Reason Stop Dose Admin Acetaminophen 1,000 mg 01/01/24 18:00 01/06/24 14:01 Acetaminophen 500 Mg Tab PO 01/31/24 17:59 1,000 mg Q8 PAULA Administration Amoxicillin/Clavulanate Potassium 1 tab 01/05/24 17:00 01/06/24 09:07 Amoxicillin/Clavulanate 500 Mg Tab PO 01/10/24 16:59 1 tab BIDM PAULA Administration Protocol Ascorbic Acid 500 mg 01/02/24 09:00 01/06/24 09:07 Ascorbic Acid 500 Mg Tab PO 02/01/24 08:59 500 mg DAILY PAULA Administration Aspirin 81 mg 01/03/24 09:00 01/06/24 09:07 Aspirin 81 Mg Ectab PO 02/02/24 08:59 81 mg [id number] PAULA Administration Buprenorphine HCl 1 patch 01/06/24 09:00 01/04/24 22:31 Buprenorphine 10 Mcg/Hr Tdsy TD 02/05/24 08:59 1 patch [id number] PAULA Administration Buprenorphine HCl 1 patch 01/06/24 12:45 01/06/24 13:59 Buprenorphine 5 Mcg/Hr Tdsy TD 02/05/24 12:44 1 patch [id number] PAULA Administration Calcium/Vitamin D 1 tab 01/03/24 12:00 01/06/24 13:46 Calcium 600mg + Vit D 400 Iu Tab PO 02/02/24 11:59 1 tab [id number]@[email or web address] PAULA Administration Famotidine 20 mg 01/01/24 21:00 01/05/24 21:03 Famotidine 20 Mg Tab PO 01/31/24 20:59 20 mg HS PAULA Administration Furosemide 20 mg 01/03/24 09:00 01/06/24 09:07 Furosemide 20 Mg Tab PO 02/02/24 08:59 20 mg [id number] PAULA Administration Gabapentin 300 mg 01/01/24 21:00 01/06/24 09:07 Gabapentin 300 Mg Cap PO 01/31/24 20:59 300 mg BID PAULA Administration Heparin Sodium (Porcine) 5,000 units 01/01/24 21:00 01/06/24 09:15 Heparin Sod 5,000 Unit/0.5 Ml Vial SQ 01/31/24 20:59 5,000 units Q12 PAULA Administration Isosorbide Mononitrate 30 mg 01/02/24 09:00 01/02/24 08:28 Isosorbide [place] Extended Rel 30 Mg Tabcr PO 02/01/24 08:59 30 mg QAM PAULA Administration Melatonin 4.5 mg 01/01/24 17:18 01/05/24 21:02 Melatonin 3 Mg Tab PO 01/31/24 17:17 4.5 mg HS PRN Administration Sleep Metoprolol Succinate 25 mg 01/03/24 09:00 01/06/24 09:07 Metoprolol Succ 25mg Ext Rel Tab PO 02/02/24 08:59 25 mg DAILY PAULA Administration Miscellaneous 1 each 01/02/24 00:00 01/06/24 09:04 Tofacitinib [Xeljanz Xr] 11 Mg Tablet Extended Release - Order Awaiting Action N/A 02/01/24 00:00 Not Given QS PAULA Miscellaneous 1 each 01/02/24 00:00 01/06/24 09:15 Check Buprenorphine Patches N/A 02/01/24 00:00 1 each QS PAULA Administration Miscellaneous 1 each 01/06/24 08:59 01/06/24 13:58 Remove & Waste Butrans 10mcg Patch 1 Ea Ea N/A 02/05/24 08:58 1 each [id number] PAULA Administration Ondansetron HCl 4 mg 01/01/24 17:18 01/06/24 09:27 Ondansetron Inj 2 Mg/Ml 2 Ml Vial IV 01/31/24 17:17 4 mg Q6H PRN Administration Nausea Polyethylene Glycol 17 gm 01/03/24 09:00 01/06/24 09:15 Polyethylene (Miralax) 17 Gm Pack PO 02/02/24 08:59 17 gm DAILY PAULA Administration Rosuvastatin Calcium 40 mg 01/01/24 21:00 01/05/24 21:01 Rosuvastatin Calcium 20 Mg Tab PO 01/31/24 20:59 40 mg HS PAULA Administration Sennosides 8.6 mg 01/02/24 21:00 01/06/24 09:06 Senna 8.6 Mg Tab PO 02/01/24 20:59 Not Given BID PAULA Vitamin D 25 mcg 01/02/24 09:00 01/06/24 09:07 Cholecalciferol 25 Mcg (1000 Units) Tab PO 02/01/24 08:59 25 mcg DAILY PAULA Administration
--- NOTE | 2024-01-07 14:11 | Hospitalist Progress Note ---
Date of Service January 07, 2024 Assessment & Plan (1) Acute sepsis: (2) Urinary tract infection after period of immobility: (3) Right upper lobe pneumonia: (4) Acute on chronic diastolic congestive heart failure: (5) Ambulatory dysfunction: (6) Lumbar postlaminectomy syndrome: (7) Degenerative disc disease, lumbar: (8) Paroxysmal supraventricular tachycardia: (9) Neuropathy: Plan Ms. Thomas is 88-year-old female with PMH CAD s/p stent, HTN, dyslipidemia, paroxysmal SVT, RA, CKD III, GERD, chronic back and extremity pain and others listed below presented to ER with complaint of right leg weakness on 12/31. Patient with recent hospitalization 11/22/2023-11/27/2023 for back pain, bilateral leg weakness, ambulatory dysfunction and had MRI thoracic and lumbar spine showing bulging disc, stenosis. Was seen by ortho spine, Dr. Shepherd, and treated with dexamethasone. Patient completed course of keflex for cellulitis. Per chart review patient seen at [facility] ER 12/20/2023 for episode of hallucinations. CT head at that time was negative. CTA neck showed severe stenosis at left ICA bifurcation 80-90% stenosis of distal L CCA and proximal left ICA and ECA. [place] [facility], Dr Newberry on 12/25/2023 for carotid stenosis and AAA, per note they felt her recent hallucination/confusion event was not related to her carotid disease. Consideration for AAA repair was discussed however it is reported patient was not interested in considering until her back pain and possible back surgery is addressed. Discussion with Dr. Shepherd revealed that Anesthesia was requested patient go to Tertiary center for procedure given multiple comorbidities. Therefore, working to coordinate referral to Ortho Spine at [place] to facilitate fast OP follow up and ensure prompt eval. Patient still to go to [facility] for rehab once bed approved. #Multilevel lumbar stenosis with radiculopathy c/b RLE weakness #Ambulatory dysfunction #Severe Degenerative disc disease --Lumbar CT: No acute lumbar spine fracture or subluxation. No change in appearance of old thoracolumbar spine fracture since CT of November 22, 2023. Stable postoperative findings following L2-L4 decompression and fusion. Moderate to severe multilevel degenerative disc disease and facet arthrosis within the lumbar spine. Suboptimal evaluation of the central canal and neural foramen given CT technique. -- Pain control - confirmed patch dosing with pain Anthony Lion: 15mcg q3d -Tramadol 25mg q6h for breakthrough --Fall precautions, PT OT:dispo to rehab --Appreciate orthopedic spine --No plan for surgical intervention currently --Needs rehab placement --Needs follow-up with orthopedic spine on discharge -Working with Dr. Alvarez and Sommer to send OP referral to facilitate prompt follow up with ortho spine Continue current management Waiting for rehab placement #sepsis ruled out #Ruled out pneumonia, likely atelectasis --CXR:Cardiomegaly with pulmonary vascular congestion. Dense airspace consolidation is seen at the right apex. This is new from 12/20/2023. Correlate clinically for evidence of pneumonia. Radiographic follow-up to resolution is recommended. -- Denies any respiratory symptoms -- Normal procalcitonin, no URI symptoms Transition to augmentin given gamma strep in UA EOT 01/08 Leukocytosis resolved, thought to be 2/2 to steroids #Gamma strep UTI #Acute urinary retention gamma strep in urine Continue augmentin EOT 01/08 void trial: successful #CKDIII Cr: 0.8 Creatinine at baseline Monitor renal function #CAD History CAD s/p stent Continue aspirin, metoprolol succinate, isosorbide, rosuvastatin #Chronic diastolic (congestive) heart failure: Appears euvolemic Continue home Lasix Monitor volume status #rheumatoid arthritis: Continue Xeljanz #Paroxysmal supraventricular tachycardia: Continue metoprolol succinate #AAA: #Carotid stenosis CT Lumbar spine: 4.5 cm infrarenal abdominal aortic aneurysm, unchanged since prior CT Prior CTA neck with severe stenosis at left ICA bifurcation 80-90% stenosis of distal L CCA and proximal left ICA and ECA. Followed up with [facility] vascular surgery, Dr Newberry on 12/25/2023 for carotid stenosis and AAA, per note they felt her recent hallucination/confusion event was not related to her carotid disease and there was consideration for AAA repair, however it is reported patient was not interested in considering until her back pain and possible back surgery is addressed. Will need OP follow up to address Per vascular note on 12/24: "The patient was counseled regarding the pathophysiology and natural history of carotid disease, as well as the symptoms of CVA/TIA/amaurosis fugax. Patient's recent neuro event not related to her carotid vascular disease Patient has asymptomatic Left CCA/ICA high grade stenosis. What is of interest is that in 2020, patient had largely unremarkable carotid duplex, <50% LICA stenosis with strong upstroke on ICA waveforms The patient was counseled regarding the pathophysiology and natural history of abdominal aortic aneurysms, as well as the signs of rupture and the need to initiate emergency medical attention in that situation. OK, from vascular surgery standpoint, to have up-coming back surgery Continue ASA 81 mg for platelet inhibition/atherosclerosis Continue Crestor 40 mg for dyslipidemia/hyperlipidemia & pleiotropic benefits of statins" -Will need procedure at Tertiary center per Anesthesia DVT Px Heparin SQ CODE STATUS DNR/DNI Disposition Rehab when accepted Admission and Anticipated Discharge Date Admission Date: January 01, 2024 Subjective NAEO Pain better controlled, still prominent with movement however more tolerable than days prior Physical Exam Constitutional: WD/WN, vitals as above Respiratory: normal respiratory effort, lungs clear to auscultation Cardiovascular: RRR, no murmur, no edema Gastrointestinal (Abdomen): normal bowel sounds, soft, nontender, no hepatosplenomegaly Results & Data Results & Data Vital Signs (Past 12 Hours) Vital Signs Temp Pulse Pulse Resp BP Pulse Ox O2 Del Method 01/07/24 12:28 Room Air 01/07/24 11:30 36.7 C 77 16 109/69 95 Room Air 01/07/24 08:32 36.8 C 64 16 136/57 L 95 Room Air 01/07/24 05:50 72 01/07/24 04:04 36.8 C 78 18 117/78 95 Room Air Medications Administered Home Medications Medication Instructions Recorded Confirmed Last Taken rosuvastatin 40 mg tablet (Crestor) 40 mg PO HS 11/14/17 01/01/24 11/21/23 gabapentin 300 mg capsule 300 mg PO BID 12/25/18 01/01/24 11/21/23 famotidine 20 mg tablet 20 mg PO HS Acid Reflux 05/29/21 01/01/24 11/21/23 amoxicillin 500 mg capsule 2,000 mg PO UD PRN Prophylaxis 06/22/21 01/01/24 Unknown isosorbide mononitrate 30 mg 30 mg PO QAM 04/19/22 01/01/24 01/01/24 tablet,extended release 24 hr tofacitinib 11 mg tablet,extended 11 mg PO QAM 04/19/22 01/01/24 11/21/23 release 24 hr (Xeljanz XR) metoprolol succinate 25 mg 25 mg PO BID 07/10/23 01/01/24 01/01/24 tablet,extended release 24 hr calcium 500 mg (as 1 tab PO DAILY 11/22/23 01/01/24 11/21/23 carbonate)-vitamin D3 3.125 mcg (125 unit) tablet povidone (PF) 0.5 % eye drops 2 drp ophthalmic (eye) BID 11/22/23 01/01/24 Unknown (iVizia (PF)) ascorbate calcium (vitamin C) 500 500 mg PO DAILY 12/16/23 01/01/24 Unknown mg tablet cholecalciferol (vitamin D3) 25 25 mcg PO DAILY 12/16/23 01/01/24 Unknown mcg (1,000 unit) capsule dicyclomine 10 mg capsule 10 mg PO BID 12/16/23 01/01/24 Unknown furosemide 20 mg tablet 20 mg PO MOWEFR 12/16/23 01/01/24 12/30/23 melatonin 5 mg capsule 5 mg PO HS PRN Sleep 12/16/23 01/01/24 Unknown polyethylene glycol 3350 17 gram 17 g PO DAILY 12/16/23 01/01/24 Unknown oral powder packet (Miralax) triamcinolone acetonide 0.1 % 1 applic topical BID PRN Rash 12/16/23 01/01/24 Unknown topical cream vit C-vit X-zoyode-lqeedorf capsule 1 cap PO DAILY 12/16/23 01/01/24 Unknown aspirin 81 mg tablet,delayed 81 mg PO MOWEFR 01/01/24 01/01/24 Unknown release (Adult Low Dose Aspirin) buprenorphine 15 mcg/hour weekly 1 patch transdermal Q7D #4 ea 01/06/24 Unknown transdermal patch (Butrans) Active Medications Generic Name Dose Route Start Last Admin Trade Name Freq PRN Reason Stop Dose Admin Acetaminophen 1,000 mg 01/01/24 18:00 01/07/24 14:17 Acetaminophen 500 Mg Tab PO 01/31/24 17:59 Not Given Q8 PAULA Amoxicillin/Clavulanate Potassium 1 tab 01/05/24 17:00 01/07/24 08:38 Amoxicillin/Clavulanate 500 Mg Tab PO 01/10/24 16:59 1 tab BIDM PAULA Administration Protocol Ascorbic Acid 500 mg 01/02/24 09:00 01/07/24 08:39 Ascorbic Acid 500 Mg Tab PO 02/01/24 08:59 500 mg DAILY PAULA Administration Aspirin 81 mg 01/03/24 09:00 01/06/24 09:07 Aspirin 81 Mg Ectab PO 02/02/24 08:59 81 mg [id number] PAULA Administration Buprenorphine HCl 1 patch 01/06/24 09:00 01/04/24 22:31 Buprenorphine 10 Mcg/Hr Tdsy TD 02/05/24 08:59 1 patch Mo@09 PAULA Administration Buprenorphine HCl 1 patch 01/06/24 12:45 01/06/24 13:59 Buprenorphine 5 Mcg/Hr Tdsy TD 02/05/24 12:44 1 patch [id number] PAULA Administration Calcium/Vitamin D 1 tab 01/03/24 12:00 01/07/24 12:21 Calcium 600mg + Vit D 400 Iu Tab PO 02/02/24 11:59 1 tab DAILY@1200 PAULA Administration Famotidine 20 mg 01/01/24 21:00 01/06/24 20:57 Famotidine 20 Mg Tab PO 01/31/24 20:59 20 mg HS PAULA Administration Furosemide 20 mg 01/03/24 09:00 01/06/24 09:07 Furosemide 20 Mg Tab PO 02/02/24 08:59 20 mg [id number] PAULA Administration Gabapentin 300 mg 01/01/24 21:00 01/07/24 08:38 Gabapentin 300 Mg Cap PO 01/31/24 20:59 300 mg BID PAULA Administration Heparin Sodium (Porcine) 5,000 units 01/01/24 21:00 01/07/24 09:37 Heparin Sod 5,000 Unit/0.5 Ml Vial SQ 01/31/24 20:59 5,000 units Q12 PAULA Administration Isosorbide Mononitrate 30 mg 01/02/24 09:00 01/02/24 08:28 Isosorbide Mcdonough Extended Rel 30 Mg Tabcr PO 02/01/24 08:59 30 mg QAM PAULA Administration Melatonin 4.5 mg 01/01/24 17:18 01/05/24 21:02 Melatonin 3 Mg Tab PO 01/31/24 17:17 4.5 mg HS PRN Administration Sleep Metoprolol Succinate 25 mg 01/03/24 09:00 01/07/24 08:38 Metoprolol Succ 25mg Ext Rel Tab PO 02/02/24 08:59 25 mg DAILY PAULA Administration Miscellaneous 1 each 01/02/24 00:00 01/07/24 08:28 Tofacitinib [Xeljanz Xr] 11 Mg Tablet Extended Release - Order Awaiting Action N/A 02/01/24 00:00 Not Given QS PAULA Miscellaneous 1 each 01/02/24 00:00 01/07/24 08:39 Check Buprenorphine Patches N/A 02/01/24 00:00 1 each QS PAULA Administration Miscellaneous 1 each 01/06/24 08:59 01/06/24 13:58 Remove & Waste Butrans 10mcg Patch 1 Ea Ea N/A 02/05/24 08:58 1 each [id number] PAULA Administration Ondansetron HCl 4 mg 01/01/24 17:18 01/06/24 09:27 Ondansetron Inj 2 Mg/Ml 2 Ml Vial IV 01/31/24 17:17 4 mg Q6H PRN Administration Nausea Polyethylene Glycol 17 gm 01/03/24 09:00 01/07/24 08:37 Polyethylene (Miralax) 17 Gm Pack PO 02/02/24 08:59 17 gm DAILY PAULA Administration Rosuvastatin Calcium 40 mg 01/01/24 21:00 01/06/24 20:57 Rosuvastatin Calcium 20 Mg Tab PO 01/31/24 20:59 40 mg HS PAULA Administration Sennosides 8.6 mg 01/02/24 21:00 01/07/24 08:38 Senna 8.6 Mg Tab PO 02/01/24 20:59 8.6 mg BID PAULA Administration Vitamin D 25 mcg 01/02/24 09:00 01/07/24 08:38 Cholecalciferol 25 Mcg (1000 Units) Tab PO 02/01/24 08:59 25 mcg DAILY PAULA Administration
[2024-01-08] MEDS: traMADol HCL 50 MG TABLET PO PRN (00:27)
[2024-01-08 10:56] LABS: BUN Creatinine Ratio 21.7 (10-20); Calcium 9.7 mg/dl (8.6-10.3); Creatinine Clr Calc Pharmacy 45.4 ml/min; Magnesium 2.1 mg/dl (1.7-2.4)
--- NOTE | 2024-01-08 16:39 | Hospitalist Progress Note ---
Date of Service January 08, 2024 Assessment & Plan (1) Acute sepsis: (2) Urinary tract infection after period of immobility: (3) Right upper lobe pneumonia: (4) Acute on chronic diastolic congestive heart failure: (5) Ambulatory dysfunction: (6) Lumbar postlaminectomy syndrome: (7) Degenerative disc disease, lumbar: (8) Paroxysmal supraventricular tachycardia: (9) Neuropathy: Plan Ms. Thomas is 88-year-old female with PMH CAD s/p stent, HTN, dyslipidemia, paroxysmal SVT, RA, CKD III, GERD, chronic back and extremity pain and others listed below presented to ER with complaint of right leg weakness on 12/31. As per prior provider: Patient with recent hospitalization 11/22/2023-11/27/2023 for back pain, bilateral leg weakness, ambulatory dysfunction and had MRI thoracic and lumbar spine showing bulging disc, stenosis. Was seen by ortho spine, Dr. Shepherd, and treated with dexamethasone. Patient completed course of keflex for cellulitis. Per chart review patient seen at [facility] ER 12/20/2023 for episode of hallucinations. CT head at that time was negative. CTA neck showed severe stenosis at left ICA bifurcation 80-90% stenosis of distal L CCA and proximal left ICA and ECA. [place] [facility] [place], Dr Newberry on 12/25/2023 for carotid stenosis and AAA, per note they felt her recent hallucination/confusion event was not related to her carotid disease. Consideration for AAA repair was discussed however it is reported patient was not interested in considering until her back pain and possible back surgery is addressed. Discussion with Dr. Shepherd revealed that Anesthesia was requested patient go to Tertiary center for procedure given multiple comorbidities. Therefore, working to coordinate referral to Ortho Spine at [place] to facilitate fast OP follow up and ensure prompt eval. Patient still to go to [facility] for rehab once bed approved. Multilevel lumbar stenosis with radiculopathy c/b RLE weakness Ambulatory dysfunction Severe Degenerative disc disease --Lumbar CT: No acute lumbar spine fracture or subluxation. No change in appearance of old thoracolumbar spine fracture since CT of November 22, 2023. Stable postoperative findings following L2-L4 decompression and fusion. Moderate to severe multilevel degenerative disc disease and facet arthrosis within the lumbar spine. Suboptimal evaluation of the central canal and neural foramen given CT technique. -- Pain control - confirmed patch dosing with pain Anthony Lion: 15mcg q3d -Tramadol 25mg q6h for breakthrough --Fall precautions, PT OT:dispo to rehab --Appreciate orthopedic spine --No plan for surgical intervention currently --Needs rehab placement --Needs follow-up with orthopedic spine on discharge -Working with Dr. Alvarez and Sommer to send OP referral to facilitate prompt follow up with ortho spine Continue current management Case management to help with discharge planning, waiting for placement sepsis ruled out Ruled out pneumonia, likely atelectasis --CXR:Cardiomegaly with pulmonary vascular congestion. Dense airspace consolidation is seen at the right apex. This is new from 12/20/2023. Correlate clinically for evidence of pneumonia. Radiographic follow-up to resolution is recommended. -- Denies any respiratory symptoms -- Normal procalcitonin, no URI symptoms Transition to augmentin given gamma strep in UA EOT 01/08 Leukocytosis resolved, thought to be due to recent steroid use Gamma strep UTI Acute urinary retention gamma strep in urine Continue augmentin EOT 01/08 void trial: successful CKDIII Cr: 0.8 Creatinine at baseline Monitor renal function CAD History CAD s/p stent Continue aspirin, metoprolol succinate, isosorbide, rosuvastatin Chronic diastolic (congestive) heart failure: Appears euvolemic Continue home Lasix Monitor volume status Rheumatoid arthritis: Continue Xeljanz Paroxysmal supraventricular tachycardia: Continue metoprolol succinate AAA: Carotid stenosis CT Lumbar spine: 4.5 cm infrarenal abdominal aortic aneurysm, unchanged since prior CT Prior CTA neck with severe stenosis at left ICA bifurcation 80-90% stenosis of distal L CCA and proximal left ICA and ECA. Followed up with [facility] [place], Dr Newberry on 12/25/2023 for carotid stenosis and AAA, per note they felt her recent hallucination/confusion event was not related to her carotid disease and there was consideration for AAA repair, however it is reported patient was not interested in considering until her back pain and possible back surgery is addressed. Will need OP follow up to address Per vascular note on 12/24: "The patient was counseled regarding the pathophysiology and natural history of carotid disease, as well as the symptoms of CVA/TIA/amaurosis fugax. Patient's recent neuro event not related to her carotid vascular disease Patient has asymptomatic Left CCA/ICA high grade stenosis. What is of interest is that in 2020, patient had largely unremarkable carotid duplex, <50% LICA stenosis with strong upstroke on ICA waveforms The patient was counseled regarding the pathophysiology and natural history of abdominal aortic aneurysms, as well as the signs of rupture and the need to initiate emergency medical attention in that situation. OK, from vascular surgery standpoint, to have up-coming back surgery Continue ASA 81 mg for platelet inhibition/atherosclerosis Continue Crestor 40 mg for dyslipidemia/hyperlipidemia & pleiotropic benefits of statins" -Will need procedure at Tertiary center per Anesthesia DVT Px Heparin SQ CODE STATUS DNR/DNI Disposition Rehab when accepted Admission and Anticipated Discharge Date Admission Date: January 01, 2024 Subjective Patient is seen and examined at bedside Had transient atrial tachycardia this morning, asymptomatic Reports back pain especially with movement Waiting for rehab placement Family at bedside No other complaints Review of Systems Review of Systems: All systems reviewed & are unremarkable except as noted in Subjective Physical Exam Physical Exam: Physical Exam: Vitals signs as noted above General Appearance:Moderately built and nourished, no apparent distress Head: normocephalic, Atraumatic Eyes: normal inspection, EOMI Neck: supple, Trachea midline Respiratory/Chest: Decreased breath sounds, minimal basal crackles, No accessory muscle use Cardiovascular: S1, S2, No murmur Abdomen/GI:Soft, Non tender, Bowel sounds present Extremities/Musculoskeletal:normal inspection, no edema, chronic venous stasis changes Neurologic/Psych:AAOX3, grossly no focal neurological deficits Skin: normal color, warm Results & Data Results & Data Vital Signs (Past 12 Hours) Vital Signs Temp Pulse Pulse Resp BP Pulse Ox O2 Del Method 01/08/24 16:00 36.6 C 66 16 120/70 94 Room Air 01/08/24 14:50 80 01/08/24 11:26 37.0 C 74 16 120/74 93 Room Air 01/08/24 07:53 36.6 C 64 18 119/72 95 Room Air 01/08/24 07:20 76 Laboratory Results [facility] 01/08/24 10:27 Sodium 140 Potassium 4.0 Chloride 105 Carbon Dioxide 28 BUN 18 Creatinine 0.83 Glucose 164 H Calcium 9.7
--- NOTE | 2024-01-09 15:33 | Hospitalist Progress Note ---
Date of Service January 09, 2024 Assessment & Plan (1) Acute sepsis: (2) Urinary tract infection after period of immobility: (3) Right upper lobe pneumonia: (4) Acute on chronic diastolic congestive heart failure: (5) Ambulatory dysfunction: (6) Lumbar postlaminectomy syndrome: (7) Degenerative disc disease, lumbar: (8) Paroxysmal supraventricular tachycardia: (9) Neuropathy: Plan Ms. Thomas is 88-year-old female with PMH CAD s/p stent, HTN, dyslipidemia, paroxysmal SVT, RA, CKD III, GERD, chronic back and extremity pain and others listed below presented to ER with complaint of right leg weakness on 12/31. As per prior provider: Patient with recent hospitalization 11/22/2023-11/27/2023 for back pain, bilateral leg weakness, ambulatory dysfunction and had MRI thoracic and lumbar spine showing bulging disc, stenosis. Was seen by ortho spine, Dr. Shepherd, and treated with dexamethasone. Patient completed course of keflex for cellulitis. Per chart review patient seen at [facility] ER 12/20/2023 for episode of hallucinations. CT head at that time was negative. CTA neck showed severe stenosis at left ICA bifurcation 80-90% stenosis of distal L CCA and proximal left ICA and ECA. Followed up with [facility] vascular surgery, Dr Newberry on 12/25/2023 for carotid stenosis and AAA, per note they felt her recent hallucination/confusion event was not related to her carotid disease. Consideration for AAA repair was discussed however it is reported patient was not interested in considering until her back pain and possible back surgery is addressed. Discussion with Dr. Shepherd revealed that Anesthesia was requested patient go to Tertiary center for procedure given multiple comorbidities. Therefore, working to coordinate referral to Ortho Spine at [place] to facilitate fast OP follow up and ensure prompt eval. Patient still to go to [facility] for rehab once bed approved. Multilevel lumbar stenosis with radiculopathy c/b RLE weakness Ambulatory dysfunction Severe Degenerative disc disease --Lumbar CT: No acute lumbar spine fracture or subluxation. No change in appearance of old thoracolumbar spine fracture since CT of November 22, 2023. Stable postoperative findings following L2-L4 decompression and fusion. Moderate to severe multilevel degenerative disc disease and facet arthrosis within the lumbar spine. Suboptimal evaluation of the central canal and neural foramen given CT technique. -- Pain control - confirmed patch dosing with pain Anthony Lion: 15mcg q3d -Tramadol 25mg q6h for breakthrough --Fall precautions, PT OT:dispo to rehab --Appreciate orthopedic spine --No plan for surgical intervention currently --Needs rehab placement --Needs follow-up with orthopedic spine on discharge -Working with Dr. Alvarez and Sommer to send OP referral to facilitate prompt follow up with ortho spine Continue current management Case management to help with discharge planning Waiting for rehab placement Sepsis ruled out Ruled out pneumonia, likely atelectasis --CXR:Cardiomegaly with pulmonary vascular congestion. Dense airspace consolidation is seen at the right apex. This is new from 12/20/2023. Correlate clinically for evidence of pneumonia. Radiographic follow-up to resolution is recommended. -- Denies any respiratory symptoms -- Normal procalcitonin, no URI symptoms Transition to augmentin given gamma strep in UA EOT 01/08 Leukocytosis resolved, thought to be due to recent steroid use Gamma strep UTI Acute urinary retention gamma strep in urine Continue Augmentin EOT 01/08 void trial: successful CKDIII Cr: 0.8 Creatinine at baseline Monitor renal function CAD History CAD s/p stent Continue aspirin, metoprolol succinate, isosorbide, rosuvastatin Chronic diastolic (congestive) heart failure: Appears euvolemic Continue home Lasix Monitor volume status Rheumatoid arthritis: Continue Xeljanz Paroxysmal supraventricular tachycardia: Continue metoprolol succinate AAA: Carotid stenosis CT Lumbar spine: 4.5 cm infrarenal abdominal aortic aneurysm, unchanged since prior CT Prior CTA neck with severe stenosis at left ICA bifurcation 80-90% stenosis of distal L CCA and proximal left ICA and ECA. Followed up with [facility] vascular surgery, Dr Newberry on 12/25/2023 for carotid stenosis and AAA, per note they felt her recent hallucination/confusion event was not related to her carotid disease and there was consideration for AAA repair, however it is reported patient was not interested in considering until her back pain and possible back surgery is addressed. Will need OP follow up to address Per vascular note on 12/24: "The patient was counseled regarding the pathophysiology and natural history of carotid disease, as well as the symptoms of CVA/TIA/amaurosis fugax. Patient's recent neuro event not related to her carotid vascular disease Patient has asymptomatic Left CCA/ICA high grade stenosis. What is of interest is that in 2020, patient had largely unremarkable carotid duplex, <50% LICA stenosis with strong upstroke on ICA waveforms The patient was counseled regarding the pathophysiology and natural history of abdominal aortic aneurysms, as well as the signs of rupture and the need to initiate emergency medical attention in that situation. OK, from vascular surgery standpoint, to have up-coming back surgery Continue ASA 81 mg for platelet inhibition/atherosclerosis Continue Crestor 40 mg for dyslipidemia/hyperlipidemia & pleiotropic benefits of statins" -Will need procedure at Tertiary center per Anesthesia DVT Px Heparin SQ CODE STATUS DNR/DNI Disposition Waiting for rehab placement Admission and Anticipated Discharge Date Admission Date: January 01, 2024 Subjective Patient is seen and examined at bedside No new complaints today Back pain is controlled Waiting for rehab placement Voices no other complaints Review of Systems Review of Systems: All systems reviewed & are unremarkable except as noted in Subjective Physical Exam Physical Exam: Physical Exam: Vitals signs as noted above General Appearance:Moderately built and nourished, no apparent distress Head: normocephalic, Atraumatic Eyes: normal inspection, EOMI Neck: supple, Trachea midline Respiratory/Chest: Decreased breath sounds, minimal basal crackles, No accessory muscle use Cardiovascular: S1, S2, No murmur Abdomen/GI:Soft, Non tender, Bowel sounds present Extremities/Musculoskeletal:normal inspection, no edema, chronic venous stasis changes Neurologic/Psych:AAOX3, grossly no focal neurological deficits Skin: normal color, warm Results & Data Results & Data Vital Signs (Past 12 Hours) Vital Signs Temp Pulse Pulse Resp BP BP Pulse Ox 01/09/24 14:42 89 01/09/24 11:26 36.7 C 89 18 135/81 96 01/09/24 07:59 36.6 C 71 17 104/67 95 01/09/24 07:34 68 01/09/24 04:04 36.6 C 71 16 121/72 92 O2 Del Method 01/09/24 14:42 01/09/24 11:26 Room Air 01/09/24 07:59 Room Air 01/09/24 07:34 01/09/24 04:04 Room Air
[2024-01-10 08:03] VITALS: RESP 17; TEMP 98.2; O2SAT 94
--- NOTE | 2024-01-10 12:16 | Hospitalist Progress Note ---
Date of Service January 10, 2024 Assessment & Plan (1) Acute sepsis: (2) Urinary tract infection after period of immobility: (3) Right upper lobe pneumonia: (4) Acute on chronic diastolic congestive heart failure: (5) Ambulatory dysfunction: (6) Lumbar postlaminectomy syndrome: (7) Degenerative disc disease, lumbar: (8) Paroxysmal supraventricular tachycardia: (9) Neuropathy: Plan Ms. Thomas is 88-year-old female with PMH CAD s/p stent, HTN, dyslipidemia, paroxysmal SVT, RA, CKD III, GERD, chronic back and extremity pain and others listed below presented to ER with complaint of right leg weakness on 12/31. As per prior provider: Patient with recent hospitalization 11/22/2023-11/27/2023 for back pain, bilateral leg weakness, ambulatory dysfunction and had MRI thoracic and lumbar spine showing bulging disc, stenosis. Was seen by ortho spine, Dr. Shepherd, and treated with dexamethasone. Patient completed course of keflex for cellulitis. Per chart review patient seen at [facility] ER 12/20/2023 for episode of hallucinations. CT head at that time was negative. CTA neck showed severe stenosis at left ICA bifurcation 80-90% stenosis of distal L CCA and proximal left ICA and ECA. Followed up with [facility] vascular surgery, Dr Newberry on 12/25/2023 for carotid stenosis and AAA, per note they felt her recent hallucination/confusion event was not related to her carotid disease. Consideration for AAA repair was discussed however it is reported patient was not interested in considering until her back pain and possible back surgery is addressed. Discussion with Dr. Shepherd revealed that Anesthesia was requested patient go to Tertiary center for procedure given multiple comorbidities. Therefore, working to coordinate referral to Ortho Spine at [place] to facilitate fast OP follow up and ensure prompt eval. Patient still to go to [facility] for rehab once bed approved. Multilevel lumbar stenosis with radiculopathy c/b RLE weakness Ambulatory dysfunction Severe Degenerative disc disease --Lumbar CT: No acute lumbar spine fracture or subluxation. No change in appearance of old thoracolumbar spine fracture since CT of November 22, 2023. Stable postoperative findings following L2-L4 decompression and fusion. Moderate to severe multilevel degenerative disc disease and facet arthrosis within the lumbar spine. Suboptimal evaluation of the central canal and neural foramen given CT technique. -- Pain control - confirmed patch dosing with pain Anthony Lion: 15mcg q3d -Tramadol 25mg q6h for breakthrough --Fall precautions -- Continue PT OT --Appreciate orthopedic spine --No plan for surgical intervention currently --Needs rehab placement --Needs follow-up with orthopedic spine on discharge -Working with Dr. Alvarez and Sommer to send OP referral to facilitate prompt follow up with ortho spine Plan to discharge to rehab facility today Sepsis ruled out Ruled out pneumonia, likely atelectasis --CXR:Cardiomegaly with pulmonary vascular congestion. Dense airspace consolidation is seen at the right apex. This is new from 12/20/2023. Correlate clinically for evidence of pneumonia. Radiographic follow-up to resolution is recommended. -- Denies any respiratory symptoms -- Normal procalcitonin, no URI symptoms Transition to Augmentin given gamma strep in UA EOT 01/08 Leukocytosis resolved, thought to be due to recent steroid use Will complete antibiotic course today Gamma strep UTI Acute urinary retention gamma strep in urine Continue Augmentin EOT 01/08 void trial: successful Will complete antibiotic course today CKD III Cr: 0.8 Creatinine at baseline Monitor renal function CAD History CAD s/p stent Continue aspirin, metoprolol succinate, isosorbide, rosuvastatin Chronic diastolic (congestive) heart failure: Appears euvolemic Continue home Lasix Monitor volume status Rheumatoid arthritis: Continue Xeljanz Paroxysmal supraventricular tachycardia: Continue metoprolol succinate AAA: Carotid stenosis CT Lumbar spine: 4.5 cm infrarenal abdominal aortic aneurysm, unchanged since prior CT Prior CTA neck with severe stenosis at left ICA bifurcation 80-90% stenosis of distal L CCA and proximal left ICA and ECA. Followed up with [facility] [place], Dr Newberry on 12/25/2023 for carotid stenosis and AAA, per note they felt her recent hallucination/confusion event was not related to her carotid disease and there was consideration for AAA repair, however it is reported patient was not interested in considering until her back pain and possible back surgery is addressed. Will need OP follow up to address Per vascular note on 12/24: "The patient was counseled regarding the pathophysiology and natural history of carotid disease, as well as the symptoms of CVA/TIA/amaurosis fugax. Patient's recent neuro event not related to her carotid vascular disease Patient has asymptomatic Left CCA/ICA high grade stenosis. What is of interest is that in 2020, patient had largely unremarkable carotid duplex, <50% LICA stenosis with strong upstroke on ICA waveforms The patient was counseled regarding the pathophysiology and natural history of abdominal aortic aneurysms, as well as the signs of rupture and the need to initiate emergency medical attention in that situation. OK, from vascular surgery standpoint, to have up-coming back surgery Continue ASA 81 mg for platelet inhibition/atherosclerosis Continue Crestor 40 mg for dyslipidemia/hyperlipidemia & pleiotropic benefits of statins" -Will need procedure at Tertiary center per Anesthesia DVT Px Heparin SQ CODE STATUS DNR/DNI Disposition Acute rehab Admission and Anticipated Discharge Date Admission Date: January 01, 2024 Subjective Patient is seen and examined at bedside States feeling well today No new complaints Discussed with patient's son at bedside Plan to be discharged to rehab facility today Denies any chest pain, dyspnea, nausea, vomiting, abdominal pain Review of Systems Review of Systems: All systems reviewed & are unremarkable except as noted in Subjective Physical Exam Physical Exam: Physical Exam: Vitals signs as noted above General Appearance:Moderately built and nourished, no apparent distress Head: normocephalic, Atraumatic Eyes: normal inspection, EOMI Neck: supple, Trachea midline Respiratory/Chest: Decreased breath sounds, minimal basal crackles, No accessory muscle use Cardiovascular: S1, S2, No murmur Abdomen/GI:Soft, Non tender, Bowel sounds present Extremities/Musculoskeletal:normal inspection, no edema, chronic venous stasis changes Neurologic/Psych:AAOX3, grossly no focal neurological deficits Skin: normal color, warm Results & Data Results & Data Vital Signs (Past 12 Hours) Vital Signs Temp Pulse Pulse Resp BP BP Pulse Ox 01/10/24 11:46 36.8 C 90 17 101/58 L 94 01/10/24 08:03 36.8 C 72 17 102/62 94 01/10/24 07:00 68 01/10/24 04:10 36.3 C L 76 18 116/72 93 O2 Del Method 01/10/24 11:46 Room Air 01/10/24 08:03 Room Air 01/10/24 07:00 01/10/24 04:10 Room Air
[2024-01-10 12:35] VITALS: BP 102/62; PULSE 66
--- NOTE | 2024-01-10 12:37 | Discharge Summary ---
Date of Service January 10, 2024 Admission HPI Per Admitting Provider Patient is 88-year-old female with PMH CAD s/p stent, HTN, dyslipidemia, paroxysmal SVT, RA, CKD III, GERD, chronic back and extremity pain and others listed below presented to ER with complaint of right leg weakness today. History obtained from patient, patient's , son at bedside as well as outpatient chart review. States at baseline patient has lift chair to get her up and then can ambulate with use of a walker. She reports chronic mid to lower back pain that waxes and wanes in intensity. Reports chronic bilateral lower extremity pain and intermittent lower extremity numbness that varies from RLE to LLE. On chronic buprenorphine patch. States today woke up and had mid to lower back pain and had noted numbness sensation from below right knee to her right foot. Had difficulty ambulating secondary to this. This morning was on toilet and was unable to get up off toilet secondary to right leg weakness so came to ER. Patient with recent hospitalization 11/22/2023-11/27/2023 for back pain, bilateral leg weakness, ambulatory dysfunction and had MRI thoracic and lumbar spine showing bulging disc, stenosis. Was seen by ortho spine, Dr. Kaplan. Treated with dexamethasone. Was treated for left lower extremity cellulitis on Rocephin which was changed to Keflex. Reports resolution of cellulitis. LLE doppler was negative for DVT She finished an additional prednisone taper 2 days ago. She was discharged to [facility] for rehab and has since been at home and completing PT. She reports prior to today was doing well and was able to ambulate. Denies fever/chills, diaphoresis, N/V/D/C, BUTT, dizziness, syncope, vision changes, neck pain, CP, SOB, orthopnea, palpitations, cough, sore throat, choking, otalgia, rhinorrhea, abdominal pain, paresthesias, extremity edema, rashes, dysuria, hematuria, urinary frequency, saddle paresthesias or loss control of bowel or bladder. Per chart review patient seen at [facility] ER 12/20/2023 for episode of hallucinations. CT head at that time was negative. CTA neck showed severe stenosis at left ICA bifurcation 80-90% stenosis of distal L CCA and proximal left ICA and ECA. Patient chose to be discharged home at that time. Per outpatient notes Followed up with [facility] vascular surgery, Dr Newberry on 12/25/2023 for carotid stenosis and AAA, per note they felt her recent hallucination/confusion event was not related to her carotid disease .Consideration for AAA repair was discussed however it is reported patient was not interested in considering until her back pain and possible back surgery is addressed. Admission Exam Per Admitting Provider General: no acute distress, WDWN Head: normocephalic, atraumatic Eyes: PERRL, EOM's intact, conjunctiva non-injected, anicteric ENT: normal inspection external ears, nose, mucous membranes dry Neck: supple, trachea midline Lungs: clear, no respiratory distress, no wheezing/rhonchi/rales CV: RRR, no pretibial edema Abd: normal BS, soft, non-tender to palpation Ext: BLE: bilateral lower legs with dusky redness with scabs, no drainage. +diffuse tenderness to palpation (reports this is chronic pain) Neuro: A&O x 3, Able to actively raise left leg to approx 35 degrees, able to actively raise right leg to approx 20 degrees, +chronic foot drop (per ). no other focal deficits noted, normal affect Skin: warm, dry, as above in ext Principal Diagnosis Lumbar stenosis with radiculopathy Urinary tract infection Suspected pneumonia Discharge Data Allergies Allergy/AdvReac Type Severity Reaction Status Date / Time morphine Allergy Severe Anaphylaxis Verified 01/01/24 15:33 hydroxychloroquine Allergy Intermediate Rash Verified 12/30/23 13:52 lisinopril Allergy Intermediate GI Verified 01/01/24 15:33 symptoms, cough shrimp Allergy Intermediate GI symptoms Verified 12/30/23 13:52 Sulfa (Sulfonamide Allergy Intermediate HIVES Verified 12/30/23 13:52 Antibiotics) pregabalin [From Lyrica] AdvReac Severe Edema Verified 12/30/23 13:52 adhesive AdvReac Intermediate Tape- rash Verified 12/30/23 13:52 benzonatate AdvReac Mild GI upset Verified 12/30/23 13:52 codeine AdvReac Mild Nausea Verified 12/30/23 13:52 Consultations 01/01/24 13:34 ED Decision to Admit Stat 01/01/24 17:18 Consult Orthopedic Spine Surgery Routine Procedures Performed Laboratory Results WBC 5.62 K/ul (4.8-10.8) 01/05/24 07:38 RBC 2.90 M/uL (4.20-5.40) L 01/05/24 07:38 Hgb 9.3 g/dl (12.0-16.0) L 01/05/24 07:38 Hct 28.8 % (37.0-47.0) L 01/05/24 07:38 MCV 99.3 fL (80.0-100.0) 01/05/24 07:38 MCH 32.1 pg (25.0-34.0) 01/05/24 07:38 MCHC 32.3 g/dL (32.0-36.0) 01/05/24 07:38 RDW Std Deviation 53.5 fL (36.4-46.3) H 01/05/24 07:38 RDW Coeff of Bryan 14.6 % (11.5-14.5) H 01/05/24 07:38 Plt Count 244 K/uL (130-400) 01/05/24 07:38 MPV 10.0 fL (9.4-12.4) 01/05/24 07:38 Immature Gran % (Auto) 1.4 % 01/02/24 07:10 Neut % (Auto) 89.5 % 01/02/24 07:10 Lymph % (Auto) 4.1 % 01/02/24 07:10 [place] % (Auto) 4.8 % 01/02/24 07:10 Eos % (Auto) 0.0 % 01/02/24 07:10 Baso % (Auto) 0.2 % 01/02/24 07:10 Neut # (Auto) 19.80 K/uL (1.40-6.50) H 01/02/24 07:10 Lymph # (Auto) 0.90 K/uL (1.20-3.40) L 01/02/24 07:10 [place] # (Auto) 1.07 K/uL (0.11-0.59) H 01/02/24 07:10 Eos # (Auto) 0.01 K/uL (0.00-0.50) 01/02/24 07:10 Baso # (Auto) 0.05 K/uL (0.00-0.20) 01/02/24 07:10 Immature Gran # (Auto) 0.31 K/uL (0.01-0.20) H 01/02/24 07:10 Absolute Nucleated RBC 0.03 K/uL (0.00-0.12) 01/01/24 13:23 Nucleated RBC % (auto) 0.2 % 01/01/24 13:23 Sodium 140 mmol/L (136-145) 01/08/24 10:27 Potassium 4.0 mmol/L (3.5-5.1) 01/08/24 10:27 Chloride 105 mmol/L (98-107) 01/08/24 10:27 Carbon Dioxide 28 mmol/L (21-32) 01/08/24 10:27 Anion Gap 7 (3-11) 01/08/24 10:27 BUN 18 mg/dl (6-23) 01/08/24 10:27 Creatinine 0.83 mg/dl (0.6-1.2) 01/08/24 10:27 Est Cr Clr Drug Dosing 45.4 ml/min 01/08/24 10:27 eGFR 68.19 01/08/24 10:27 BUN/Creatinine Ratio 21.7 (10-20) H 01/08/24 10:27 Glucose 164 mg/dl (70-99(Fasting)) H 01/08/24 10:27 Calcium 9.7 mg/dl (8.6-10.3) 01/08/24 10:27 Magnesium 2.1 mg/dl (1.7-2.4) 01/08/24 10:27 Total Bilirubin 0.9 mg/dl (0.2-1.0) 01/01/24 13:23 AST 21 U/L (13-39) 01/01/24 13:23 ALT 12 U/L (7-52) 01/01/24 13:23 Alkaline Phosphatase 51 U/L (34-104) 01/01/24 13:23 Total Protein 6.1 gm/dl (6.0-8.3) 01/01/24 13:23 Albumin 3.4 gm/dl (3.4-5.0) 01/01/24 13:23 Globulin 2.7 gm/dl (2.5-4.0) 01/01/24 13:23 Albumin/Globulin Ratio 1.3 (0.9-2) 01/01/24 13:23 Vitamin B12 248 pg/ml (180-914) 01/06/24 10:41 Folate 11.07 ng/ml (>5.38) 01/06/24 10:41 Procalcitonin 0.21 ng/ml (0-0.5) 01/04/24 06:16 Urine Color Yellow 01/05/24 Unknown Urine Appearance Cloudy (Clear) A 01/05/24 Unknown Urine pH 7.5 (4.5-7.5) 01/05/24 Unknown Ur Specific [place] 1.016 (1.000-1.030) 01/05/24 Unknown Urine Protein 1+ (Negative) H 01/05/24 Unknown Urine Glucose (UA) Negative (Negative) 01/05/24 Unknown Urine Ketones Negative (Negative) 01/05/24 Unknown Urine Blood 3+ (Negative) H 01/05/24 Unknown Urine Nitrite Negative (Negative) 01/05/24 Unknown Urine Bilirubin Negative (Negative) 01/05/24 Unknown Urine Urobilinogen Negative (Negative) 01/05/24 Unknown Ur Leukocyte Esterase 2+ (Negative) H 01/05/24 Unknown Urine WBC (Auto) 6-10 /hpf (0-5) H 01/05/24 Unknown Urine RBC (Auto) >20 /hpf (0-2) H 01/05/24 Unknown U Hyaline Cast (Auto) 3-5 /lpf (0-2) H 01/05/24 Unknown U Epithel Cells (Auto) 11-20 /hpf (0-2) H 01/05/24 Unknown Urine Bacteria (Auto) None Seen (None Seen) 01/05/24 Unknown Amorphous Sediment Present (None Prsent) A 01/02/24 Unknown Impressions Lumbar Spine CT 01/01/24 10:57 CT OF THE LUMBAR SPINE CLINICAL HISTORY: R> L LE weakness COMPARISON STUDY: Lumbar spine CT November 22, 2023. Lumbar spine MRI November 23, 2023. TECHNIQUE: Helical axial images of the lumbar spine were obtained. Sagittal and coronal reconstructions were viewed. Automated exposure control was utilized for the study. A dose lowering technique was utilized adhering to the principles of ALARA. FINDINGS: A 4.5 cm infrarenal abdominal aortic aneurysm is unchanged in appearance since CT of November 22, 2023. Multiple old lower thoracic and lumbar spine compression fractures are unchanged. For purposes of numbering on this exam, the L5-S1 disc space is assigned to axial image 313 of 365. There are postoperative findings consistent with L2-L4 decompression and pedicle screw fusion. The postoperative appearance is unchanged. No acute lumbar spine fractures are identified. There are no osseous lesions. Moderate to severe multilevel degenerative disc disease and facet arthrosis is noted. Central canal and neural foramen are suboptimally assessed given CT technique. IMPRESSION: 1. No acute lumbar spine fracture or subluxation. 2. No change in appearance of old thoracolumbar spine fracture since CT of November 22, 2023. 3. Stable postoperative findings following L2-L4 decompression and fusion. 4. Moderate to severe multilevel degenerative disc disease and facet arthrosis within the lumbar spine. Suboptimal evaluation of the central canal and neural foramen given CT technique. 5. 4.5 cm infrarenal abdominal aortic aneurysm, unchanged since prior CT. ACT 112: Negative or not required by law. Electronically signed by: Freddy Rivera M.D. 01/01/2024 12:16 PM Chest X-Ray 01/04/24 07:00 SINGLE VIEW CHEST CLINICAL HISTORY: Follow-up right upper lobe consolidation. FINDINGS: An AP, portable, upright chest radiograph is compared to study dated 01/01/2024. The examination is degraded by portable technique, apical lordotic positioning, and patient rotation. An electronic device projects over the left lower chest. The heart is enlarged. Pulmonary vascular congestion has improved from previous. The left lung appears clear. Right upper lobe opacities are again noted. This is likely partially cleared from 01/01/2024 but is suboptimally assessed due to patient rotation. No large pleural effusion or pneumothorax is seen. The skeletal structures are osteopenic. The bony thorax is grossly intact. A right shoulder arthroplasty is in place. Arthritic change is noted in the left shoulder. IMPRESSION: 1. Cardiomegaly. Pulmonary vascular congestion has improved from previous. 2. Right upper lobe consolidation has likely partially cleared as compared to 01/01/2024. This is suboptimally assessed due to the degree of patient rotation. Consider a repeat PA and lateral examination when the patient is clinically able. ACT 112: Negative or not required by law. Electronically signed by: Preston Hammonds M.D. 01/04/2024 8:10 AM Ordered Studies 01/01/24 10:57 CT lumbar spine wo con Stat Hospital Course (1) Acute sepsis: (2) Urinary tract infection after period of immobility: (3) Right upper lobe pneumonia: (4) Acute on chronic diastolic congestive heart failure: (5) Ambulatory dysfunction: (6) Lumbar postlaminectomy syndrome: (7) Degenerative disc disease, lumbar: (8) Paroxysmal supraventricular tachycardia: (9) Neuropathy: Plan Ms. Thomas is 88-year-old female with PMH CAD s/p stent, HTN, dyslipidemia, paroxysmal SVT, RA, CKD III, GERD, chronic back and extremity pain and others listed below presented to ER with complaint of right leg weakness on 12/31. As per prior provider: Patient with recent hospitalization 11/22/2023-11/27/2023 for back pain, bilateral leg weakness, ambulatory dysfunction and had MRI thoracic and lumbar spine showing bulging disc, stenosis. Was seen by ortho spine, Dr. Shepherd, and treated with dexamethasone. Patient completed course of keflex for cellulitis. Per chart review patient seen at [facility] ER 12/20/2023 for episode of hallucinations. CT head at that time was negative. CTA neck showed severe stenosis at left ICA bifurcation 80-90% stenosis of distal L CCA and proximal left ICA and ECA. Followed up with [facility] vascular surgery, Dr Newberry on 12/25/2023 for carotid stenosis and AAA, per note they felt her recent hallucination/confusion event was not related to her carotid disease. Consideration for AAA repair was discussed however it is reported patient was not interested in considering until her back pain and possible back surgery is addressed. Discussion with Dr. Shepherd revealed that Anesthesia was requested patient go to Tertiary center for procedure given multiple comorbidities. Therefore, working to coordinate referral to Ortho Spine at [place] to facilitate fast OP follow up and ensure prompt eval. Patient still to go to [facility] for rehab once bed approved. Multilevel lumbar stenosis with radiculopathy c/b RLE weakness Ambulatory dysfunction Severe Degenerative disc disease --Lumbar CT: No acute lumbar spine fracture or subluxation. No change in appearance of old thoracolumbar spine fracture since CT of November 22, 2023. Stable postoperative findings following L2-L4 decompression and fusion. Moderate to severe multilevel degenerative disc disease and facet arthrosis within the lumbar spine. Suboptimal evaluation of the central canal and neural foramen given CT technique. -- Pain control - confirmed patch dosing with pain Anthony Lion: 15mcg q3d -Tramadol 25mg q6h for breakthrough --Fall precautions -- Continue PT OT --Appreciate orthopedic spine --No plan for surgical intervention currently --Needs rehab placement --Needs follow-up with orthopedic spine on discharge -Working with Dr. Alvarez and Sommer to send OP referral to facilitate prompt follow up with ortho spine Plan to discharge to rehab facility today Sepsis ruled out Ruled out pneumonia, likely atelectasis --CXR:Cardiomegaly with pulmonary vascular congestion. Dense airspace consolidation is seen at the right apex. This is new from 12/20/2023. Correlate clinically for evidence of pneumonia. Radiographic follow-up to resolution is recommended. -- Denies any respiratory symptoms -- Normal procalcitonin, no URI symptoms Transition to Augmentin given gamma strep in UA EOT 01/08 Leukocytosis resolved, thought to be due to recent steroid use Will complete antibiotic course today Gamma strep UTI Acute urinary retention gamma strep in urine Continue Augmentin EOT 01/08 void trial: successful Will complete antibiotic course today CKD III Cr: 0.8 Creatinine at baseline Monitor renal function CAD History CAD s/p stent Continue aspirin, metoprolol succinate, isosorbide, rosuvastatin Chronic diastolic (congestive) heart failure: Appears euvolemic Continue home Lasix Monitor volume status Rheumatoid arthritis: Continue Xeljanz Paroxysmal supraventricular tachycardia: Continue metoprolol succinate AAA: Carotid stenosis CT Lumbar spine: 4.5 cm infrarenal abdominal aortic aneurysm, unchanged since prior CT Prior CTA neck with severe stenosis at left ICA bifurcation 80-90% stenosis of distal L CCA and proximal left ICA and ECA. Followed up with [facility] surgery, Dr Newberry on 12/25/2023 for carotid stenosis and AAA, per note they felt her recent hallucination/confusion event was not related to her carotid disease and there was consideration for AAA repair, however it is reported patient was not interested in considering until her back pain and possible back surgery is addressed. Will need OP follow up to address Per vascular note on 12/24: "The patient was counseled regarding the pathophysiology and natural history of carotid disease, as well as the symptoms of CVA/TIA/amaurosis fugax. Patient's recent neuro event not related to her carotid vascular disease Patient has asymptomatic Left CCA/ICA high grade stenosis. What is of interest is that in 2020, patient had largely unremarkable carotid duplex, <50% LICA stenosis with strong upstroke on ICA waveforms The patient was counseled regarding the pathophysiology and natural history of abdominal aortic aneurysms, as well as the signs of rupture and the need to initiate emergency medical attention in that situation. OK, from vascular surgery standpoint, to have up-coming back surgery Continue ASA 81 mg for platelet inhibition/atherosclerosis Continue Crestor 40 mg for dyslipidemia/hyperlipidemia & pleiotropic benefits of statins" -Will need procedure at Tertiary center per Anesthesia DVT Px Heparin SQ CODE STATUS DNR/DNI Disposition Acute rehab Total Time Total Time Spent Total Time Spent (In Minutes): 46 minutes Discharge Plan Discharge Items Patient Disposition: Transfer Inpatient Rehab Fac Reason For Visit: BACK PAIN, WEAKNESS Discharge Diagnosis: Lumbar stenosis with radiculopathy Urinary tract infection Suspected pneumonia Activity: Per Instructions section Exercise/Sports: Gradually increase as tolerated Non-emergency contact: Primary Care Provider and Surgeon Call non-emergency contact if: you have any medication questions, your symptoms worsen, your pain is concerning for you and you have a fever Follow-up/Referrals: Candice Mcnair DO [Primary Care Provider] - Diet: Heart Healthy Addtl Attending Provider Instructions: Follow-up with your primary care physician in 1 week upon discharge from rehab facility Follow-up with your orthopedic surgeon as recommended --Complete the Augmentin course today (Last dose 01/10/24 ) -- Your Imdur is held due to low blood pressure while you are hospitalized. Plan to resume Imdur once her blood pressure improves -- Monitor your blood pressure regularly at rehab facility. Discuss with your physician for further adjustment of medications as needed. Seek immediate medical attention if your symptoms reoccur or worsen Please take all medications as instructed on discharge list below. Please call if you have any questions or problems. You can reach a [facility] hospitalist on duty at [facility] 24 hours a day by calling [phone] Pending Studies at Discharge: No Stand-Alone Forms: My [facility] Skilled Items Patient informed of condition?: Yes DNR: Yes Discharge Level of Care: Acute rehab Communicable Disease: No Discharge Prognosis: Stable Lines: None Urinary Catheter: No Medications and DC Order Prescriptions: New amoxicillin-pot clavulanate 500-125 mg Tablet 1 tab PO BIDM Qty: 1 0RF buprenorphine [Butrans] 10 mcg/hour Patch Weekly 1 patch transdermal Mo@0900 Qty: 0 0RF sennosides [Senokot] 8.6 mg Tablet 8.6 mg PO BID PRN (Reason: Constipation) Qty: 0 0RF Continued rosuvastatin [Crestor] 40 mg tablet 40 mg PO HS famotidine 20 mg tablet 20 mg PO HS furosemide 20 mg tablet 20 mg PO MOWEFR Rx Instructions: 3 days per week; sat, sat, sat melatonin 5 mg capsule 5 mg PO HS PRN (Reason: Sleep) Xeljanz XR 11 mg tablet extended release 24 hr 11 mg PO QAM metoprolol succinate 25 mg tablet extended release 24 hr 25 mg PO BID triamcinolone acetonide 0.1 % cream 1 applic topical BID PRN (Reason: Rash) polyethylene glycol 3350 [Miralax] 17 gram powder in packet 17 g PO DAILY ascorbate calcium (vitamin C) 500 mg tablet 500 mg PO DAILY cholecalciferol (vitamin D3) 25 mcg (1,000 unit) capsule 25 mcg PO DAILY vit C-vit [id number] Capsule 1 cap PO DAILY gabapentin 300 mg capsule 300 mg PO BID amoxicillin 500 mg capsule 2,000 mg PO UD PRN (Reason: Prophylaxis) Rx Instructions: take 4 capsules 1 hour prior to dental appointments calcium carbonate-vitamin D3 500 mg-3.125 mcg (125 unit) Tablet 1 tab PO DAILY iVizia (PF) 0.5 % Drops 2 drp OPHTHALMIC (EYE) BID aspirin [Adult Low Dose Aspirin] 81 mg tablet,delayed release (DR/EC) 81 mg PO MOWEFR Patient Comments: called pt on the phone Rx Instructions: TAKES MON, SAT & SAT. Changed dicyclomine 10 mg capsule 10 mg PO BID PRN (Reason: Abdominal Pain) Qty: 0 0RF Patient Comments: no longer taking 12/26/23 Held isosorbide mononitrate 30 mg tablet extended release 24 hr 30 mg PO QAM Hold Instructions: Continue to hold until your blood pressure improves Discontinued buprenorphine [Butrans] 15 mcg/hour patch weekly 1 patch transdermal Q7D Qty: 4 0RF Discharge Orders: Discharge Order (Routine); Ordered 01/10/24 Ordered By: Delmer Duran Admission Data Admit Date/Time: 01/01/24 14:11 Attending Provider: Delmer Duran Admit Provider: Lizeth Mcdonald Primary Care Provider: Candice Mcnair Other Providers: Lizeth Mcdonald; [place] Shepherd; [facility]
[2024-01-13] MEDS ORDERED: [UNRECOGNIZED DRUG - REMARK] SCH (08:59)
== END 2024-01-10 14:35 | DRG 551 ==
LOC: ED 09:47 → SUATTDRO 14:11 → 2W 14:11

== ENCOUNTER 2024-05-21 16:20 | Inpatient (IN) ==
--- NOTE | 2024-05-21 16:55 | Emergency Department Note ---
Impression & Plan Hypoxia, Pneumonia, Atrial fibrillation ED Provider Note Diagnosis: New onset A-fib with RVR, pneumonia, hypoxia Disposition: Admission CHIEF COMPLAINT: Generalized weakness HPI: Patient is an 89-year-old female presenting with tachycardia and hypoxia. Patient reportedly has been sick for over 1 weeks time. Patient recently seen by primary care physician earlier in the week and started on doxycycline for presumed pneumonia/bronchitis. Patient having fevers today and found to be hypoxic requiring 4 L nasal cannula oxygen support. Patient does not use oxygen at baseline. Patient found to have a heart rate of 130 bpm irregular rhythm. On review of patient's prior record and discussion with family she does not have a history of atrial fibrillation. Patient recently over the past 3 to 4 days to started with a rash to the left side of the anterior neck that goes towards the left ear that has blisters/vesicular in nature. Patient has not had any nausea vomiting diarrhea or abdominal pain. PAST MEDICAL HISTORY: See Below PAST SURGICAL HISTORY: See Below SOCIAL HISTORY: See Below HOME MEDICATIONS: See Below ALLERGIES: See Below VITALS: See Below PHYSICAL EXAMINATION: GENERAL: Severe distress EYE EXAM: Normal conjunctiva. OROPHARYNX: Moist mucus membranes. Grossly normal dentition. NECK: Supple, LUNGS: Clear to auscultation. Normal chest wall mechanics. HEART: Tachycardia, irregular regular rhythm ABDOMEN: Abdomen soft, non-tender, normo-active bowel sounds, no masses, no rebound or guarding BACK: No CVA TTP. SKIN: No rashes and no bruising. UPPER EXTREMITIES: Upper extremities are grossly normal LOWER EXTREMITIES: Grossly normal, no edema. NEURO EXAM: A&O x3,, normal speech, moves all 4 extremities PSYCH: Cooperative MEDICAL DECISION MAKING: History obtained from: Patient, son, ER Course: Patient is an 89-year-old female presenting with tachycardia hypoxia new cough. Patient found to be in A-fib with RVR. Patient does not have history of A-fib previously. Patient started on bolus of IV fluids. Patient's heart rate came down from 130 bpm to 115 bpm. Patient was then started on Cardizem. Patient had significant hypertension upon arrival and Cardizem drip helped significantly with this. Patient found on chest x-ray to have a pneumonia. Due to the patient's significant tachycardia and hypoxia septic protocol was ordered. Patient does not have a leukocytosis or elevated lactate level. However patient was given broad-spectrum antibiotics upon arrival due to SIRS criteria present. Patient heart rate controlled with Cardizem drip. Patient admitted to hospital service for further treatment and evaluation. Labs (independently interpreted) are significant for: No leukocytosis, no elevation of lactate level Imaging results (independently interpreted): Chest x-ray pneumonia EKG interpretation (independently interpreted): Atrial fibrillation with RVR no ST segment elevation or depression Medications given: Normal saline, cefepime, acetaminophen, cards Consultants: Hospitalist Triage Nursing notes reviewed and agree them. Vital Signs: reviewed and remarkable for: Tachycardia, hypoxia Critical care; 45 minutes time does not include time for procedures Past Med/Surg History Problem List (Updated 05/21/24 @ 22:44 by Felipe Coleman DO) Atrial fibrillation (Acute) Pneumonia (Acute) Hypoxia (Acute) Weakness (Acute) Ambulatory dysfunction (Acute) DDD (degenerative disc disease), lumbar (Acute) Acute on chronic diastolic congestive heart failure Degenerative disc disease, lumbar Right upper lobe pneumonia Urinary tract infection after period of immobility Acute sepsis Abnormal ankle brachial index (DOROTHEA) (Acute) ISTAP type 3 skin tear of right hand (Acute) 12/16/23 Traumatic open wound of left lower leg with delayed healing (Acute) 12/16/23 Low back pain radiating to right lower extremity Lumbar radiculopathy, right Degenerative lumbar spinal stenosis AAA (abdominal aortic aneurysm) without rupture Cellulitis of lower extremity 11/25/23 Encephalopathy 11/22/23 Back pain Paroxysmal supraventricular tachycardia Chronic diastolic (congestive) heart failure Acute kidney injury superimposed on CKD 11/22/23 Ambulatory dysfunction Elevated troponin I level (Acute) 11/22/23 BERNADINE (acute kidney injury) (Acute) 11/22/23 Bilateral leg weakness (Acute) 11/22/23 Hypertension Hx of rheumatoid arthritis CAD (coronary artery disease) f/u [facility]ach[facility] pa Hematoma of right lower leg (Acute) 07/18/23 Greater trochanteric pain syndrome Opioid dependence Greater trochanteric bursitis of left hip Rotator cuff arthropathy of left shoulder Mechanical low back pain Medication monitoring encounter Acquired foot deformity Laceration of right knee (Acute) 08/16/21 Pressure ulcer of toe of left foot, stage 4 07/12/21 T12 compression fracture Fever (Acute) 06/23/21 Weakness (Acute) 06/23/21 Lower extremity edema (Chronic) 06/21/21 Acquired hammer toe (Chronic) Neuropathy (Chronic) Stage IV pressure ulcer (Acute) 05/29/21 Pes anserine bursitis Status post right knee replacement Traumatic open wound of right lower leg (Acute) 02/21/21 Immunosuppression due to chronic steroid use Traumatic open wound of right lower leg with delayed healing (Acute) 12/15/20 Laceration of elbow, left (Acute) 11/23/20 Dehydration (Acute) 10/27/20 Pneumonia due to 2018 novel coronavirus (Acute) 10/27/20 Acute respiratory failure with hypoxemia (Acute) 10/27/20 Acute respiratory failure with hypoxia 10/27/20 Multifocal pneumonia 10/27/20 Rheumatoid arthritis (Acute) SARS-CoV-2 positive (Acute) 10/17/20 Weakness (Acute) 10/17/20 Fall 10/17/20 Bilateral knee pain History of total right knee replacement Postural imbalance 08/22/20 Entrapment neuropathy of peripheral nerve of lower extremity Venous insufficiency of both lower extremities (Chronic) Traumatic open wound of right lower leg (Acute) 04/12/20 Pes anserinus tendonitis of right lower extremity Left knee DJD Traumatic wound (Acute) 11/11/19 Left knee pain (Chronic) Postoperative seroma (Chronic) L2-4 Lumbar postlaminectomy syndrome (Chronic) Acquired right foot 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 Lumbar compression fracture (Chronic) L1 acute on chronic MRI 03/[address] 10/17/2020 Pes anserine bursitis Right knee pain Degenerative joint disease of knee Myofascial pain (Chronic) Sacroiliitis (Chronic) 11/20/18 Cervical radiculopathy (Chronic) Greater trochanteric bursitis (Chronic) Lumbago (Chronic) Lumbar radiculitis (Chronic) Peripheral neuropathy (Chronic) Facet syndrome, lumbar (Chronic) CAD (coronary artery disease) (Chronic) Osteoarthritis (Chronic) Myocardial infarct, 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) 11/14/17 Hypertension (Chronic) Dyslipidemia (Chronic) Osteoporosis (Chronic) Rheumatoid arthritis of shoulder (Chronic) Lumbar spinal stenosis (Chronic) Medical History CAD (coronary artery disease) Open wound Sacral neurostimulator in situ Hx of supraventricular tachycardia AAA (abdominal aortic aneurysm) GERD (gastroesophageal reflux disease) Hx of migraines Hx of myocardial infarction (~2008) Lumbar spinal stenosis Postlaminectomy syndrome, lumbar region Dyslipidemia History of COVID-19 Neuropathy Right knee pain Surgical History Hx of toe surgery Hx of colonoscopy Hx of heart artery stent Hx of cardiac cath History of total shoulder replacement History of loop recorder S/P total knee arthroplasty History of lumbosacral spine surgery History of PTCA History of hysterectomy History of breast biopsy History of tonsillectomy History of adenoidectomy History of angioplasty Family History Father Myocardial infarction Brother Myocardial infarction Other Family history non-contributory Denies family history of Ovarian cancer Prostate cancer Breast cancer Colorectal cancer Social History Smoking Status: Former smoker Tobacco Type: Cigarettes Second Hand Exposure: No; Do You Dip or Chew Tobacco: No; Hx Alcohol Use: No Hx Substance Use: No Preferred Language: Nigerian Communication Ability: Effective Visual Impairment: Limited Hearing Ability: Normal Environmental Marketing Representative Required: No Beliefs That Will Affect Care: None marital status: Current Living Situation: Spouse current occupational status: retired How many Children do You have: 7 Feels Safe at Home: Yes Diet: regular caffeine: No during the past year weight has: remained stable Assistive Devices: Lift Chair and Walker Allergies Allergies Allergy/AdvReac Type Severity Reaction Status Date / Time morphine Allergy Severe Anaphylaxis Verified 04/21/24 09:42 hydroxychloroquine Allergy Intermediate Rash Verified 04/21/24 09:42 lisinopril Allergy Intermediate GI Verified 04/21/24 09:42 symptoms, cough shrimp Allergy Intermediate GI symptoms Verified 04/21/24 09:42 Sulfa (Sulfonamide Allergy Intermediate HIVES Verified 04/21/24 09:42 Antibiotics) pregabalin [From Lyrica] AdvReac Severe Edema Verified 04/21/24 09:42 adhesive AdvReac Intermediate Tape- rash Verified 04/21/24 09:42 benzonatate AdvReac Mild GI upset Verified 04/21/24 09:42 codeine AdvReac Mild Nausea Verified 04/21/24 09:42 Home Meds Home Medications Medication Instructions Recorded Confirmed ascorbic acid (vitamin C) 500 mg 500 mg PO DAILY 05/21/24 05/21/24 tablet (Vitamin C) aspirin 81 mg tablet,delayed 81 mg PO DAILY 05/21/24 05/21/24 release buprenorphine 15 mcg/hour weekly 15 patch topical UD 05/21/24 05/21/24 transdermal patch calcium 500 mg (as 1 tab PO DAILY 05/21/24 05/21/24 carbonate)-vitamin D3 5 mcg (200 unit) tablet (Oyster Shell Calcium-Vitamin D3) cholecalciferol (vitamin D3) 25 25 mcg PO DAILY 05/21/24 05/21/24 mcg (1,000 unit) capsule (Vitamin D3) colesevelam 625 mg tablet 625 mg PO BID 05/21/24 05/21/24 dicyclomine 10 mg capsule 10 mg PO BID PRN Abdominal Pain 05/21/24 05/21/24 docusate sodium 100 mg capsule 100 mg PO BID PRN Constipation 05/21/24 05/21/24 (Colace) doxycycline hyclate 100 mg capsule 100 mg PO BID 05/21/24 05/21/24 famotidine 20 mg tablet 20 mg PO DAILY 05/21/24 05/21/24 furosemide 20 mg tablet 20 mg PO UD 05/21/24 05/21/24 gabapentin 300 mg capsule 300 mg PO BID 05/21/24 05/21/24 melatonin 3 mg tablet 6 mg PO HS PRN Insomnia 05/21/24 05/21/24 metoprolol succinate 25 mg 25 mg PO BID 05/21/24 05/21/24 tablet,extended release 24 hr [id number]-[id number]-[id number] 250 mg-dha 90 1 cap PO DAILY 05/21/24 05/21/24 mg-epa 160 [id number] capsule (Ocuvite Adult 50 Plus) polyethylene glycol 3350 17 gram 17 g PO DAILY 05/21/24 05/21/24 oral powder packet (Miralax) rosuvastatin 40 mg tablet 40 mg PO DAILY 05/21/24 05/21/24 simethicone 80 mg chewable tablet 80 mg PO Q6H PRN Gastrointestinal 05/21/24 05/21/24 Spasms Or Cramping tofacitinib 11 mg tablet,extended 11 mg PO DAILY 05/21/24 05/21/24 release 24 hr (Xeljanz XR) tramadol 50 mg tablet 25 mg PO BID PRN Pain 05/21/24 05/21/24 triamcinolone acetonide 0.1 % 1 applic topical BID PRN Rash 05/21/24 05/21/24 topical cream Results & Data (ED) Vital Signs Vital Signs - 24 hr 05/21/24 16:16 05/21/24 16:16 05/21/24 16:30 Temperature 39.3 C H 39.3 C H Temperature Source Oral Oral Pulse Rate 135 H 123 H Pulse Rate [Apical] 132 H Pulse Rate from SpO2 Sensor 139 H Pulse Rhythm Irregular Pulse Rhythm [Apical] Irregular Pulse Strength Normal Pulse Strength [Apical] Normal Respiratory Rate 35 H 35 H 33 H Respiratory Effort / Characteristics Spontaneous Labored Labored Respiratory Depth Shallow Respiratory Pattern Tachypnea Tachypnea Blood Pressure 213/136 H 213/136 H Blood Pressure [Right Arm] 213/136 H Blood Pressure Mean 161 161 Blood Pressure Mean [Right Arm] 161 Blood Pressure Position [Right Arm] Pulse Oximetry 87 L 87 L 94 Oxygen Delivery Method Room Air Room Air Oxygen Flow Rate Sepsis Recent Fever Within 48 Hours Yes Sepsis New/Unexplained Change in Mental Status Yes Sepsis Action Taken by Nursing Physician Notified 05/21/24 16:32 05/21/24 16:42 05/21/24 16:51 Temperature Temperature Source Pulse Rate 117 H 141 H 131 H Pulse Rate [Apical] Pulse Rate from SpO2 Sensor 131 H Pulse Rhythm Irregular Pulse Rhythm [Apical] Pulse Strength Pulse Strength [Apical] Respiratory Rate 36 H Respiratory Effort / Characteristics Respiratory Depth Respiratory Pattern Blood Pressure 212/134 H Blood Pressure [Right Arm] Blood Pressure Mean 161 Blood Pressure Mean [Right Arm] Blood Pressure Position [Right Arm] Pulse Oximetry 95 94 Oxygen Delivery Method Nasal Cannula Oxygen Flow Rate 4 Sepsis Recent Fever Within 48 Hours Sepsis New/Unexplained Change in Mental Status Sepsis Action Taken by Nursing 05/21/24 17:00 05/21/24 17:30 05/21/24 17:42 Temperature Temperature Source Pulse Rate 119 H 110 H 129 H Pulse Rate [Apical] Pulse Rate from SpO2 Sensor 111 H 114 H Pulse Rhythm Pulse Rhythm [Apical] Pulse Strength Pulse Strength [Apical] Respiratory Rate 19 18 24 Respiratory Effort / Characteristics Respiratory Depth Respiratory Pattern Blood Pressure 168/122 H 200/144 H 214/137 H Blood Pressure [Right Arm] Blood Pressure Mean 134 156 162 Blood Pressure Mean [Right Arm] Blood Pressure Position [Right Arm] Pulse Oximetry 97 96 Oxygen Delivery Method Oxygen Flow Rate Sepsis Recent Fever Within 48 Hours Sepsis New/Unexplained Change in Mental Status Sepsis Action Taken by Nursing 05/21/24 18:00 05/21/24 18:45 05/21/24 18:45 Temperature Temperature Source Pulse Rate Pulse Rate [Apical] 126 H Pulse Rate from SpO2 Sensor Pulse Rhythm Pulse Rhythm [Apical] Regular Pulse Strength Pulse Strength [Apical] Normal Respiratory Rate 22 Respiratory Effort / Characteristics Non-Labored Respiratory Depth Normal Respiratory Pattern Regular Blood Pressure 193/147 H 193/147 H Blood Pressure [Right Arm] 204/146 H Blood Pressure Mean 172 172 Blood Pressure Mean [Right Arm] 165 Blood Pressure Position [Right Arm] Lying Pulse Oximetry 96 Oxygen Delivery Method Room Air Oxygen Flow Rate Sepsis Recent Fever Within 48 Hours Sepsis New/Unexplained Change in Mental Status Sepsis Action Taken by Nursing 05/21/24 18:45 05/21/24 18:54 05/21/24 19:00 Temperature Temperature Source Pulse Rate 127 H Pulse Rate [Apical] Pulse Rate from SpO2 Sensor 120 H Pulse Rhythm Pulse Rhythm [Apical] Pulse Strength Pulse Strength [Apical] Respiratory Rate 18 Respiratory Effort / Characteristics Respiratory Depth Respiratory Pattern Blood Pressure 193/147 H 195/142 H Blood Pressure [Right Arm] Blood Pressure Mean 172 150 Blood Pressure Mean [Right Arm] Blood Pressure Position [Right Arm] Pulse Oximetry 96 Oxygen Delivery Method Nasal Cannula Oxygen Flow Rate 3 Sepsis Recent Fever Within 48 Hours Sepsis New/Unexplained Change in Mental Status Sepsis Action Taken by Nursing 05/21/24 19:00 05/21/24 19:00 05/21/24 19:00 Temperature Temperature Source Pulse Rate 121 H Pulse Rate [Apical] Pulse Rate from SpO2 Sensor 119 H Pulse Rhythm Pulse Rhythm [Apical] Pulse Strength Pulse Strength [Apical] Respiratory Rate 22 Respiratory Effort / Characteristics Respiratory Depth Respiratory Pattern Blood Pressure 195/142 H 195/142 H Blood Pressure [Right Arm] Blood Pressure Mean 150 150 Blood Pressure Mean [Right Arm] Blood Pressure Position [Right Arm] Pulse Oximetry 99 Oxygen Delivery Method Nasal Cannula Oxygen Flow Rate 3 Sepsis Recent Fever Within 48 Hours Sepsis New/Unexplained Change in Mental Status Sepsis Action Taken by Nursing 05/21/24 19:09 05/21/24 19:15 05/21/24 19:15 Temperature Temperature Source Pulse Rate 119 H Pulse Rate [Apical] Pulse Rate from SpO2 Sensor 122 H Pulse Rhythm Pulse Rhythm [Apical] Pulse Strength Pulse Strength [Apical] Respiratory Rate 22 Respiratory Effort / Characteristics Respiratory Depth Respiratory Pattern Blood Pressure 205/141 H 205/141 H Blood Pressure [Right Arm] Blood Pressure Mean 158 158 Blood Pressure Mean [Right Arm] Blood Pressure Position [Right Arm] Pulse Oximetry 98 Oxygen Delivery Method Nasal Cannula Oxygen Flow Rate 3 Sepsis Recent Fever Within 48 Hours Sepsis New/Unexplained Change in Mental Status Sepsis Action Taken by Nursing 05/21/24 19:21 05/21/24 19:32 05/21/24 19:37 Temperature Temperature Source Pulse Rate 129 H 130 H 134 H Pulse Rate [Apical] Pulse Rate from SpO2 Sensor 127 H 134 H Pulse Rhythm Pulse Rhythm [Apical] Pulse Strength Pulse Strength [Apical] Respiratory Rate 18 18 21 Respiratory Effort / Characteristics Respiratory Depth Respiratory Pattern Blood Pressure 150/109 H 175/124 H Blood Pressure [Right Arm] Blood Pressure Mean 122 145 Blood Pressure Mean [Right Arm] Blood Pressure Position [Right Arm] Pulse Oximetry 98 99 98 Oxygen Delivery Method Nasal Cannula Nasal Cannula Oxygen Flow Rate 3 3 Sepsis Recent Fever Within 48 Hours Sepsis New/Unexplained Change in Mental Status Sepsis Action Taken by Nursing 05/21/24 19:40 05/21/24 19:50 05/21/24 19:54 Temperature Temperature Source Pulse Rate 100 H 96 H 93 H Pulse Rate [Apical] Pulse Rate from SpO2 Sensor 95 H Pulse Rhythm Pulse Rhythm [Apical] Pulse Strength Pulse Strength [Apical] Respiratory Rate 21 20 15 Respiratory Effort / Characteristics Respiratory Depth Respiratory Pattern Blood Pressure 182/135 H 143/110 H 148/103 H Blood Pressure [Right Arm] Blood Pressure Mean 147 121 118 Blood Pressure Mean [Right Arm] Blood Pressure Position [Right Arm] Pulse Oximetry 98 98 92 Oxygen Delivery Method Nasal Cannula Oxygen Flow Rate 3 Sepsis Recent Fever Within 48 Hours Sepsis New/Unexplained Change in Mental Status Sepsis Action Taken by Nursing 05/21/24 20:00 05/21/24 20:10 05/21/24 20:21 Temperature Temperature Source Pulse Rate 90 86 91 H Pulse Rate [Apical] Pulse Rate from SpO2 Sensor 87 87 90 Pulse Rhythm Pulse Rhythm [Apical] Pulse Strength Pulse Strength [Apical] Respiratory Rate 23 22 22 Respiratory Effort / Characteristics Respiratory Depth Respiratory Pattern Blood Pressure 164/108 H 168/94 H 176/95 H Blood Pressure [Right Arm] Blood Pressure Mean 126 108 122 Blood Pressure Mean [Right Arm] Blood Pressure Position [Right Arm] Pulse Oximetry 93 94 93 Oxygen Delivery Method Nasal Cannula Nasal Cannula Nasal Cannula Oxygen Flow Rate 3 3 3 Sepsis Recent Fever Within 48 Hours Sepsis New/Unexplained Change in Mental Status Sepsis Action Taken by Nursing 05/21/24 20:27 05/21/24 20:30 05/21/24 20:40 Temperature Temperature Source Pulse Rate 91 H 90 100 H Pulse Rate [Apical] Pulse Rate from SpO2 Sensor 93 H 98 H Pulse Rhythm Pulse Rhythm [Apical] Pulse Strength Pulse Strength [Apical] Respiratory Rate 16 17 Respiratory Effort / Characteristics Respiratory Depth Respiratory Pattern Blood Pressure 155/76 H 155/76 H Blood Pressure [Right Arm] Blood Pressure Mean 129 102 Blood Pressure Mean [Right Arm] Blood Pressure Position [Right Arm] Pulse Oximetry 95 95 Oxygen Delivery Method Nasal Cannula Nasal Cannula Oxygen Flow Rate 3 3 Sepsis Recent Fever Within 48 Hours Sepsis New/Unexplained Change in Mental Status Sepsis Action Taken by Nursing 05/21/24 20:51 05/21/24 21:00 05/21/24 21:09 Temperature Temperature Source Pulse Rate 88 90 86 Pulse Rate [Apical] Pulse Rate from SpO2 Sensor 82 86 86 Pulse Rhythm Pulse Rhythm [Apical] Pulse Strength Pulse Strength [Apical] Respiratory Rate 23 23 23 Respiratory Effort / Characteristics Respiratory Depth Respiratory Pattern Blood Pressure 156/93 H 155/92 H 154/86 H Blood Pressure [Right Arm] Blood Pressure Mean 114 113 108 Blood Pressure Mean [Right Arm] Blood Pressure Position [Right Arm] Pulse Oximetry 94 94 94 Oxygen Delivery Method Nasal Cannula Nasal Cannula Nasal Cannula Oxygen Flow Rate 3 3 3 Sepsis Recent Fever Within 48 Hours Sepsis New/Unexplained Change in Mental Status Sepsis Action Taken by Nursing 05/21/24 21:21 05/21/24 21:45 05/21/24 21:46 Temperature Temperature Source Pulse Rate 86 95 H 95 H Pulse Rate [Apical] Pulse Rate from SpO2 Sensor 81 95 H 93 H Pulse Rhythm Pulse Rhythm [Apical] Pulse Strength Pulse Strength [Apical] Respiratory Rate 24 17 18 Respiratory Effort / Characteristics Respiratory Depth Respiratory Pattern Blood Pressure 145/83 H 148/93 H 148/93 H Blood Pressure [Right Arm] Blood Pressure Mean 103 117 111 Blood Pressure Mean [Right Arm] Blood Pressure Position [Right Arm] Pulse Oximetry 95 94 94 Oxygen Delivery Method Nasal Cannula Nasal Cannula Nasal Cannula Oxygen Flow Rate 3 3 3 Sepsis Recent Fever Within 48 Hours Sepsis New/Unexplained Change in Mental Status Sepsis Action Taken by Nursing 05/21/24 22:06 05/21/24 22:15 05/21/24 22:30 Temperature Temperature Source Pulse Rate 89 87 82 Pulse Rate [Apical] Pulse Rate from SpO2 Sensor 88 80 80 Pulse Rhythm Pulse Rhythm [Apical] Pulse Strength Pulse Strength [Apical] Respiratory Rate 24 18 22 Respiratory Effort / Characteristics Respiratory Depth Respiratory Pattern Blood Pressure 158/95 H 169/85 H 165/91 H Blood Pressure [Right Arm] Blood Pressure Mean 116 113 115 Blood Pressure Mean [Right Arm] Blood Pressure Position [Right Arm] Pulse Oximetry 94 95 95 Oxygen Delivery Method Nasal Cannula Nasal Cannula Nasal Cannula Oxygen Flow Rate 2 3 3 Sepsis Recent Fever Within 48 Hours Sepsis New/Unexplained Change in Mental Status Sepsis Action Taken by Nursing Laboratory Data 05/21/24 16:38 05/21/24 16:38 Lab Results 05/21/24 05/21/24 05/21/24 Range/Units 16:38 19:30 Unknown WBC 8.45 (4.8-10.8) K/ul RBC 4.61 (4.20-5.40) M/uL Hgb 13.8 (12.0-16.0) g/dl Hct 43.4 (37.0-47.0) % MCV 94.1 (80.0-100.0) fL MCH 29.9 (25.0-34.0) pg MCHC 31.8 L (32.0-36.0) g/dL RDW Std Deviation 53.3 H (36.4-46.3) fL RDW Coeff of [place] 15.4 H (11.5-14.5) % Plt Count 354 (130-400) K/uL MPV 9.0 L (9.4-12.4) fL Immature Gran % (Auto) 0.6 % Neut % (Auto) 79.4 % Lymph % (Auto) 10.7 % [place] % (Auto) 7.8 % Eos % (Auto) 1.1 % Baso % (Auto) 0.4 % Neut # (Auto) 6.72 H (1.40-6.50) K/uL Lymph # (Auto) 0.90 L (1.20-3.40) K/uL [place] # (Auto) 0.66 H (0.11-0.59) K/uL Eos # (Auto) 0.09 (0.00-0.50) K/uL Baso # (Auto) 0.03 (0.00-0.20) K/uL Immature Gran # (Auto) 0.05 (0.01-0.20) K/uL PT 10.3 (9.0-12.0) Seconds INR 0.9 (0.9-1.1) APTT 24 (21-31) Seconds PTT Ratio 0.9 Sodium 138 (136-145) mmol/L Potassium 4.1 (3.5-5.1) mmol/L Chloride 100 (98-107) mmol/L Carbon Dioxide 28 (21-32) mmol/L Anion Gap 10 (3-11) BUN 19 (6-23) mg/dl Creatinine 0.92 (0.6-1.2) mg/dl Est Cr Clr Drug Dosing 41.1 ml/min eGFR 59.89 BUN/Creatinine Ratio 20.7 H (10-20) Glucose 140 H (70-99(Fasting)) mg/dl Lactate 1.2 (0.4-2.0) mmol/L Calcium 10.4 H (8.6-10.3) mg/dl Magnesium 2.0 (1.7-2.4) mg/dl Total Bilirubin 0.5 (0.2-1.0) mg/dl Direct Bilirubin 0.2 (0-0.2) mg/dl AST 15 (13-39) U/L ALT 4 L (7-52) U/L Alkaline Phosphatase 66 (34-104) U/L Troponin I High Sens 25.9 H 50.0 H* D (0-14) pg/ml B-Natriuretic Peptide 324 H (0-100) pg/ml Total Protein 8.4 H (6.0-8.3) gm/dl Albumin 4.3 (3.4-5.0) gm/dl Procalcitonin 0.06 (0-0.5) ng/ml Urine Color Yellow Urine Appearance Cloudy A (Clear) Urine pH 7.5 (4.5-7.5) Ur Specific [place] 1.015 (1.000-1.030) Urine Protein 2+ H (Negative) Urine Glucose (UA) Negative (Negative) Urine Ketones Trace H (Negative) Urine Blood 2+ H (Negative) Urine Nitrite Negative (Negative) Urine Bilirubin Negative (Negative) Urine Urobilinogen Negative (Negative) Ur Leukocyte Esterase Negative (Negative) Urine WBC (Auto) 0-5 (0-5) /hpf Urine RBC (Auto) >20 H (0-2) /hpf U Hyaline Cast (Auto) 0-2 (0-2) /lpf U Epithel Cells (Auto) 0-2 (0-2) /hpf Urine Bacteria (Auto) None Seen (None Seen) Adenovirus (PCR) Not Detected (NotDetected) B. pertussis DNA (PCR) Not Detected (NotDetected) B.parapertussis DNA PCR Not Detected (NotDetected) C. pneumoniae DNA (PCR) Not Detected (NotDetected) Coronavirus OC43 (PCR) Not Detected (NotDetected) Coronavirus HKU1 (PCR) Not Detected (NotDetected) Coronavirus 229E (PCR) Not Detected (NotDetected) SARS-CoV-2 (PCR) Not Detected (NotDetected) Coronavirus NL63 (PCR) Not Detected (NotDetected) Human Metapneumovir PCR Not Detected (NotDetected) Influenza Type A (PCR) Not Detected (NotDetected) Influenza Type B (PCR) Not Detected (NotDetected) M. pneumoniae (PCR) Not Detected (NotDetected) Parainfluenza 1 (PCR) Not Detected (NotDetected) Parainfluenza 2 (PCR) Not Detected (NotDetected) Parainfluenza 3 (PCR) Not Detected (NotDetected) Parainfluenza 4 (PCR) Not Detected (NotDetected) RSV (PCR) Not Detected (NotDetected) Entero/Rhino (PCR) Not Detected (NotDetected) Administered Medications Diltiazem HCl 125 mg/ Dextrose 125 mls @ 0 mls/hr IV .Q0M [facility]; Protocol Stop: 06/20/24 19:14 Last Titration: 05/21/24 21:47 Dose: 0 mg/hr, 0 mls/hr Documented By: MELVA Co-signed By: printing manager: 05/21/24 19:49 Dose: 5 mg/hr, 5 mls/hr Documented By: MELVA Co-signed By: NAW Discontinued Medications Diltiazem HCl (Diltiazem Hcl 5 Mg/Ml 5 Ml Vial) 15 mg IV NOW STA Stop: 05/21/24 19:11 Last Admin: 05/21/24 19:39 Dose: 15 mg Documented By: MELVA Co-signed By: TEGAN Sodium Chloride (Nss) 1,000 mls @ 999 mls/hr IV .Q1H1M PAULA Stop: 05/21/24 18:00 Last Infusion: 05/21/24 18:17 Dose: Infused Documented By: Admin: 05/21/24 17:13 Dose: 999 mls/hr Documented By: SATHYA Cefepime HCl (Maxipime 2000mg) 2,000 mg in 20 mls @ 5 mls/min IV NOW STA; Protocol Stop: 05/21/24 16:54 Last Admin: 05/21/24 17:13 Dose: 5 mls/min Documented By: SATHYA Acetaminophen (Ofirmev) 1,000 mg in 100 mls @ 400 mls/hr IV NOW STA Stop: 05/21/24 17:05 Last Infusion: 05/21/24 17:31 Dose: Infused Documented By: Admin: 05/21/24 17:13 Dose: 400 mls/hr Documented By: SATHYA Metoprolol Tartrate (Metoprolol Tartrate 25 Mg Tab) 25 mg PO NOW STA Stop: 05/21/24 21:41 Last Admin: 05/21/24 21:47 Dose: 25 mg Documented By: MELVA Miscellaneous (Stat Iv Infusion Titration Per Protocol) 1 each N/A NOW STA Stop: 05/21/24 19:11 Last Admin: 05/21/24 20:03 Dose: Not Given Documented By: MELVA Ondansetron HCl (Ondansetron Inj 2 Mg/Ml 2 Ml Vial) 4 mg IV NOW STA Stop: 05/21/24 20:06 Last Admin: 05/21/24 20:17 Dose: 4 mg Documented By: MELVA Imaging Data Radiologist's Impression: Chest X-Ray 05/21/24 16:51 EXAM: Portable AP chest radiograph TECHNIQUE: AP portable radiograph of the chest was obtained. INDICATION: Shortness of breath. Comparison: Chest radiograph January 04, 2024 FINDINGS: LINES and TUBES: Loop recorder/leadless pacemaker. CARDIOVASCULAR: Cardiac silhouette is stably enlarged in size. LUNGS/PLEURA: Mild pulmonary vascular congestion. New pulmonary infiltrates in the right lung base. Left perihilar scarring. No significant pleural fluid. No discernible pneumothorax. OSSEOUS/OTHER: No displaced acute osseous process identified. 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 IMPRESSION: New infiltrates in the right lung base consistent with pneumonia. Recommended chest radiograph follow-up in 4-6 weeks after appropriate treatment to ensure resolution. Electronically signed by Antwan Lloyd 05-21-2024 5:22 PM Discharge Plan Visit Data Chief Complaint: Fever Stated Complaint: ILLNESS ED Provider: Felipe Coleman Discharge Problem: Hypoxia, Pneumonia, Atrial fibrillation Forms Stand Alone Forms: [facility] Prescriptions Prescriptions: No Action doxycycline hyclate 100 mg capsule 100 mg PO BID polyethylene glycol 3350 [Miralax] 17 gram Powder In Packet 17 g PO DAILY melatonin 3 mg Tablet 6 mg PO HS PRN (Reason: Insomnia) aspirin [Aspir-81] 81 mg Tablet,Delayed Release (Dr/Ec) 81 mg PO DAILY famotidine 20 mg tablet 20 mg PO DAILY ascorbic acid (vitamin C) [Vitamin C] 500 mg Tablet 500 mg PO DAILY colesevelam 625 mg tablet 625 mg PO BID gabapentin 300 mg capsule 300 mg PO BID furosemide 20 mg tablet 20 mg PO UD Rx Instructions: once daily on sat, sat and saturday metoprolol succinate 25 mg tablet extended release 24 hr 25 mg PO BID rosuvastatin 40 mg tablet 40 mg PO DAILY calcium carbonate-vitamin D3 [Oyster Shell Calcium-Vit D3] 500 mg-5 mcg (200 unit) Tablet 1 tab PO DAILY buprenorphine 15 mcg/hour patch weekly 15 patch topical UD Rx Instructions: 15mcg/hr patch once weekly on saturday Ocuvite Adult 50 Plus 250 mg (90 mg-160 mg) Capsule 1 cap PO DAILY tramadol 50 mg tablet 25 mg PO BID PRN (Reason: Pain) triamcinolone acetonide 0.1 % cream 1 applic TOPICAL BID PRN (Reason: Rash) docusate sodium [Colace] 100 mg Capsule 100 mg PO BID PRN (Reason: Constipation) dicyclomine 10 mg capsule 10 mg PO BID PRN (Reason: Abdominal Pain) simethicone 80 mg Tablet,Chewable 80 mg PO Q6H PRN (Reason: Gastrointestinal Spasms Or Cramping) cholecalciferol (vitamin D3) [Vitamin D3] 25 mcg (1,000 unit) Capsule 25 mcg PO DAILY Xeljanz XR 11 mg tablet extended release 24 hr 11 mg PO DAILY Referrals Referrals: Candice Mcnair DO [Outside Practitioners] -
[2024-05-21 17:12] LABS: Basophils # (auto) 0.03 K/uL (0.00-0.20); Basophils % (auto) 0.4 %; Eosinophils # (auto) 0.09 K/uL (0.00-0.50); Eosinophils % (auto) 1.1 %; Hematocrit (blood only) 43.4 % (37.0-47.0); Hemoglobin 13.8 g/dl (12.0-16.0); Immature Granulocytes # (auto) 0.05 K/uL (0.01-0.20); Immature Granulocytes % (auto) 0.6 %; Lymphocytes % (auto) 10.7 %; Mean Corpuscular Hemoglobin 29.9 pg (25.0-34.0); Mean Corpuscular Hgb Conc 31.8 g/dL (32.0-36.0); Mean Corpuscular Volume 94.1 fL (80.0-100.0); Monocytes # (auto) 0.66 K/uL (0.11-0.59); Monocytes % (auto) 7.8 %; Neutrophils # (auto) 6.72 K/uL (1.40-6.50); Neutrophils % (auto) 79.4 %; Platelet Count 354 K/uL (130-400); RDW Coefficient of Variation 15.4 % (11.5-14.5); RDW Standard Deviation 53.3 fL (36.4-46.3); Red Blood Count 4.61 M/uL (4.20-5.40); White Blood Count 8.45 K/ul (4.8-10.8)
[2024-05-21] MEDS: CEFEPIME 2000MG 2,000 MG/20 ML SYR IV STA (17:13)
[2024-05-21] MEDS: ACETAMINOPHEN 1,000 MG/100 ML VIAL IV STA (17:13)
[2024-05-21] MEDS: SODIUM CHLORIDE 0.9% 1,000 ML IV SCH ×2 (17:13→22:46)
--- NOTE | 2024-05-21 17:23 | XRay Report ---
EXAM: Portable AP chest radiograph TECHNIQUE: AP portable radiograph of the chest was obtained. INDICATION: Shortness of breath. Comparison: Chest radiograph January 04, 2024 FINDINGS: LINES and TUBES: Loop recorder/leadless pacemaker. CARDIOVASCULAR: Cardiac silhouette is stably enlarged in size. LUNGS/PLEURA: Mild pulmonary vascular congestion. New pulmonary infiltrates in the right lung base. Left perihilar scarring. No significant pleural fluid. No discernible pneumothorax. OSSEOUS/OTHER: No displaced acute osseous process identified. 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 IMPRESSION: New infiltrates in the right lung base consistent with pneumonia. Recommended chest radiograph follow-up in 4-6 weeks after appropriate treatment to ensure resolution. Electronically signed by Antwan Lloyd 05-21-2024 5:22 PM
[2024-05-21 17:29] LABS: Albumin Level 4.3 gm/dl (3.4-5.0); BUN Creatinine Ratio 20.7 (10-20); Bilirubin Direct 0.2 mg/dl (0-0.2); Bilirubin,Total 0.5 mg/dl (0.2-1.0); Calcium 10.4 mg/dl (8.6-10.3); Creatinine Clr Calc Pharmacy 41.1 ml/min; Potassium 4.1 mmol/L (3.5-5.1); Total Protein 8.4 gm/dl (6.0-8.3)
[2024-05-21 17:35] LABS: Troponin I High Sensitivity 25.9 pg/ml (0-14)
[2024-05-21 17:42] LABS: INR 0.9 (0.9-1.1); Partial Thromboplastin Ratio 0.9; Partial Thromboplastin Time 24 Seconds (21-31); Prothrombin Time 10.3 Seconds (9.0-12.0)
[2024-05-21 17:56] LABS: Adenovirus PCR Not Detected (NotDetected); Bordetella parapertussis PCR Not Detected (NotDetected); Bordetella pertussis PCR Not Detected (NotDetected); Chlamydia pneumoniae PCR Not Detected (NotDetected); Coronavirus 229E PCR Not Detected (NotDetected); Coronavirus CoV-2 (COVID19)PCR Not Detected (NotDetected); Coronavirus HKU1 PCR Not Detected (NotDetected); Coronavirus NL63 PCR Not Detected (NotDetected); Coronavirus OC43PCR Not Detected (NotDetected); Human Metapneumovirus PCR Not Detected (NotDetected); Influenza A PCR Not Detected (NotDetected); Influenza B PCR Not Detected (NotDetected); Mycoplasma pneumoniae PCR Not Detected (NotDetected); Parainfluenza Virus 1 PCR Not Detected (NotDetected); Parainfluenza Virus 2 PCR Not Detected (NotDetected); Parainfluenza Virus 3 PCR Not Detected (NotDetected); Parainfluenza Virus 4 PCR Not Detected (NotDetected); Respiratory Syncytial VirusPCR Not Detected (NotDetected); Rhinovirus/Enterovirus PCR Not Detected (NotDetected)
[2024-05-21] MEDS: dilTIAZem HCl 5 MG/ML 5 ML VIAL IV STA (19:39)
[2024-05-21] MEDS: dilTIAZem HCL 125 MG in DEXTROSE 5% 100 ML IV SCH (19:49)
[2024-05-21] MEDS: STAT IV Infusion **Titration per Protocol STA (20:03)
[2024-05-21] MEDS: ONDANSETRON INJ 2 MG/ML 2 ML VIAL IV STA (20:17)
[2024-05-21 20:49] LABS: Appearance Urine Cloudy (Clear); Bacteria Urine Automated None Seen (None Seen); Bilirubin Urine Negative (Negative); Blood Urine 2+ (Negative); Cast Urine Automated 0-2 /lpf (0-2); Color Urine Yellow; Epithelial Cell Urine Auto 0-2 /hpf (0-2); Glucose Urine UA Negative (Negative); Ketones Urine Trace (Negative); Leukocyte Esterase Urine Negative (Negative); Nitrite Urine Negative (Negative); Protein Urine 2+ (Negative); RBC Urine Automated >20 /hpf (0-2); Specific Gravity Urine 1.015 (1.000-1.030); Urobilinogen Urine Negative (Negative); WBC Urine Automated 0-5 /hpf (0-5); pH Urine 7.5 (4.5-7.5)
[2024-05-21] MEDS: METOPROLOL TARTRATE 25 MG TAB PO STA (21:47)
[2024-05-21] MEDS: diphenhydrAMINE Capsule 25 MG CAP PO ONE (22:46)
--- NOTE | 2024-05-21 22:46 | History & Physical Report ---
Date of Service May 21, 2024 Assessment & Plan (1) Hypoxia: Plan: 89-year-old female with past medical history significant for CAD status post stent, abdominal aortic aneurysm, dyslipidemia, pancreatic cyst, hypertension, history of syncope in May 2017, nonsustained ventricular tachycardia on event monitor, history of COVID pneumonitis, history of falls, history of chronic rheumatoid arthritis on immunosuppressive therapy, history of lumbar laminectomy, ambulatory dysfunction uses wheelchair, leg weakness, history of lower leg cellulitis, history of bilateral carotid artery stenosis, chronic constipation, GERD, CKD stage III, osteoarthritis, compression fracture of T12 vertebrae, migraines, history of s/p placement of implantable loop recorder, opioid dependence comes from [facility] for confusion, cough and shortness of breath. Patient was having shortness of breath and cough for few days saw PCP on 05/19/2024 and was prescribed doxycycline. As per son patient started taking doxycycline since yesterday. Tonight she seemed more confused and more short of breath and could not able to cough. Was having fever. In the ER she was having temp spike and tachycardia and rapid A-fib. With the Cardizem currently patient converted back to sinus rhythm. Patient says she has some chest pain earlier but that got resolved now. Denies any headache. Vision is okay. No runny nose or sore throat. No nausea. Denies abdominal pain. Normal bowel and bladder movements. Denies any blood in the stools or hematuria. Feeling weak. Could tell her history. Knows that she in the hospital. Knows current year but not accurate with the month. Patient has a feeling lump like in the throat and neck regions before starting doxycycline and when son saw her today at 11 AM there was no rash but currently she has some blebs in the throat region and the erythematous rash extending into the left side of the neck behind the ear and into the scalp. She says she has some itchiness of the rash region. Denies any pain. Patient has history of shingles in the past. Patient was seen in the hospital in January 2024 with sepsis, UTI, right upper lobe pneumonia and acute on chronic diastolic CHF and ambulatory dysfunction and right leg weakness. During that admission she was found to have moderate to severe multilevel degenerative disc disease. She followed with orthospine at [place] and no surgery is planned. And last admit she was treated with Augmentin for, strep UTI. She also found to have infrarenal abdominal aortic aneurysm 4.5 cm and also CTA neck with severe stenosis of left ICA 80-90 for stenosis of distal left CCA and proximal left ICA and ECA. Son says there is no plan for any procedures. Hypoxia Pneumonia on right lung base on chest x-ray Requiring 4 L oxygen Had temp spike and rapid A-fib No leukocytosis. Procalcitonin negative. Respiratory bio fire negative. Lactic acid 1.2 Patient was started on doxycycline as outpatient Received cefepime in the ER Will continue with zosyn and azithromycin Gentle fluids Will follow CTA chest Close monitor hemodynamics Rapid A-fib New onset Mostly from above Was on Cardizem drip in the ER and currently converted to sinus rhythm and stopped cardizem. Give a dose of p.o. Lopressor Will place on low-dose IV heparin Continue home p.o. home metoprolol succinate IV Lopressor as needed. Will follow echo Telemetry Cardial consult in a.m. for further recommendations Mild elevation troponin Mostly demand ischemia Initial troponin 25 and repeat is 50 We will follow serial enzymes and echo Cardiology consulted Rash Erythematous rash in her throat region extending behind the left neck to the scalp Blebs seen Complaints of itching Denies pain History of shingles Gave a dose of Benadryl. Some lump like feeling started within the throat region yesterday evening before starting the doxycycline. Empirically started on valacyclovir Will monitor Consider dermatology consult History of CAD status post stent On aspirin, statin and beta-irlanda History of abdominal aortic aneurysm 4.5 cm infrarenal abdominal aortic aneurysm Follow-up Bilateral carotid artery disease On aspirin and statin Back pain Continue home pain regimen Opioid dependence Ambulatory dysfunction Ambulates with walker PT OT when stable Hyperlipidemia On statin Hypertension On metoprolol succinate On Lasix 3 times a week Chronic diastolic CHF On Lasix 3 times weekly Getting gentle fluids Monitor for volume overload Rheumatoid arthritis Will hold Xeljanz for now GERD On famotidine CKD stage III Presented with creatinine of 0.9 Will follow labs History of paroxysmal supraventricular tachycardia had an episode last night On metoprolol succinate DVT prophylaxis On IV heparin Disposition Telemetry CODE STATUS DNR/DNI as per my discussion with the patient. Son in the room. History of Present Illness Chief Complaint: Pneumonia, hypoxia and rapid A-fib Primary Care Provider: Anthony Leo DO 89-year-old female with past medical history significant for CAD status post stent, abdominal aortic aneurysm, dyslipidemia, pancreatic cyst, hypertension, history of syncope in May 2017, nonsustained ventricular tachycardia on event monitor, history of COVID pneumonitis, history of falls, history of chronic rheu matoid arthritis on immunosuppressive therapy, history of lumbar laminectomy, ambulatory dysfunction uses wheelchair, leg weakness, history of lower leg cellulitis, history of bilateral carotid artery stenosis, chronic constipation, GERD, CKD stage III, osteoarthritis, compression fracture of T12 vertebrae, migraines, history of s/p placement of implantable loop recorder, opioid dependence comes from [facility] for confusion, cough and shortness of breath. Patient was having shortness of breath and cough for few days saw PCP on 05/19/2024 and was prescribed doxycycline. As per son patient started taking doxycycline since yesterday. Tonight she seemed more confused and more short of breath and could not able to cough. Was having fever. In the ER she was having temp spike and tachycardia and rapid A-fib. With the Cardizem currently patient converted back to sinus rhythm. Patient says she has some chest pain earlier but that got resolved now. Denies any headache. Vision is okay. No runny nose or sore throat. No nausea. Denies abdominal pain. Normal bowel and bladder movements. Denies any blood in the stools or hematuria. Feeling weak. Could tell her history. Knows that she in the hospital. Knows current year but not accurate with the month. Patient has a feeling lump like in the throat and neck regions before starting doxycycline and when son saw her today at 11 AM there was no rash but currently she has some blebs in the throat region and the erythematous rash extending into the left side of the neck behind the ear and into the scalp. She says she has some itchiness of the rash region. Denies any pain. Patient has history of shingles in the past. Patient was seen in the hospital in January 2024 with sepsis, UTI, right upper lobe pneumonia and acute on chronic diastolic CHF and ambulatory dysfunction and right leg weakness. During that admission she was found to have moderate to severe multilevel degenerative disc disease. She followed with orthospine at [place] and no surgery is planned. And last admit she was treated with Augmentin for, strep UTI. She also found to have infrarenal abdominal aortic aneurysm 4.5 cm and also CTA neck with severe stenosis of left ICA 80-90 for stenosis of distal left CCA and proximal left ICA and ECA. Son says there is no plan for any procedures. Past medical history. As mentioned above Past surgical history. Colonoscopy. Left heart catheterization. EGD. EGD with endoscopic ultrasound. Insertion of peripheral gastric neurostimulator, knee arthroscopy, ligation of oviducts, lumbar hemilaminectomy, right cataract, tonsillectomy adenoidectomy, repair of bladder and vaginal cystocele, right shoulder arthroscopy, vaginal hysterectomy Social history. . Quit smoking in 1975. Smoked 1 pack a day for 20 years. Alcohol glass of wine. No drug use. Family history. Mother had diabetes. Father had MD. Brother had MD. Son had renal cancer. Allergies Allergy/AdvReac Type Severity Reaction Status Date / Time morphine Allergy Severe Anaphylaxis Verified 04/21/24 09:42 hydroxychloroquine Allergy Intermediate Rash Verified 04/21/24 09:42 lisinopril Allergy Intermediate GI Verified 04/21/24 09:42 symptoms, cough shrimp Allergy Intermediate GI symptoms Verified 04/21/24 09:42 Sulfa (Sulfonamide Allergy Intermediate HIVES Verified 04/21/24 09:42 Antibiotics) pregabalin [From Lyrica] AdvReac Severe Edema Verified 04/21/24 09:42 adhesive AdvReac Intermediate Tape- rash Verified 04/21/24 09:42 benzonatate AdvReac Mild GI upset Verified 04/21/24 09:42 codeine AdvReac Mild Nausea Verified 04/21/24 09:42 Home Medications Medication Instructions Recorded Confirmed Type ascorbic acid (vitamin C) 500 mg 500 mg PO DAILY 05/21/24 05/21/24 History tablet (Vitamin C) aspirin 81 mg tablet,delayed 81 mg PO DAILY 05/21/24 05/21/24 History release buprenorphine 15 mcg/hour weekly 15 patch topical UD 05/21/24 05/21/24 History transdermal patch calcium 500 mg (as 1 tab PO DAILY 05/21/24 05/21/24 History carbonate)-vitamin D3 5 mcg (200 unit) tablet (Oyster Shell Calcium-Vitamin D3) cholecalciferol (vitamin D3) 25 25 mcg PO DAILY 05/21/24 05/21/24 History mcg (1,000 unit) capsule (Vitamin D3) colesevelam 625 mg tablet 625 mg PO BID 05/21/24 05/21/24 History dicyclomine 10 mg capsule 10 mg PO BID PRN Abdominal Pain 05/21/24 05/21/24 History docusate sodium 100 mg capsule 100 mg PO BID PRN Constipation 05/21/24 05/21/24 History (Colace) doxycycline hyclate 100 mg capsule 100 mg PO BID 05/21/24 05/21/24 History famotidine 20 mg tablet 20 mg PO DAILY 05/21/24 05/21/24 History furosemide 20 mg tablet 20 mg PO UD 05/21/24 05/21/24 History gabapentin 300 mg capsule 300 mg PO BID 05/21/24 05/21/24 History melatonin 3 mg tablet 6 mg PO HS PRN Insomnia 05/21/24 05/21/24 History metoprolol succinate 25 mg 25 mg PO BID 05/21/24 05/21/24 History tablet,extended release 24 hr [id number] 250 mg-dha 90 1 cap PO DAILY 05/21/24 05/21/24 History mg-epa 160 [id number] capsule (Ocuvite Adult 50 Plus) polyethylene glycol 3350 17 gram 17 g PO DAILY 05/21/24 05/21/24 History oral powder packet (Miralax) rosuvastatin 40 mg tablet 40 mg PO DAILY 05/21/24 05/21/24 History simethicone 80 mg chewable tablet 80 mg PO Q6H PRN Gastrointestinal 05/21/24 05/21/24 History Spasms Or Cramping tofacitinib 11 mg tablet,extended 11 mg PO DAILY 05/21/24 05/21/24 History release 24 hr (Xeljanz XR) tramadol 50 mg tablet 25 mg PO BID PRN Pain 05/21/24 05/21/24 History triamcinolone acetonide 0.1 % 1 applic topical BID PRN Rash 05/21/24 05/21/24 History topical cream Past Med/Surg History Problem List (Updated 05/21/24 @ 22:44 by Felipe Coleman DO) Atrial fibrillation (Acute) Pneumonia (Acute) Hypoxia (Acute) Weakness (Acute) Ambulatory dysfunction (Acute) DDD (degenerative disc disease), lumbar (Acute) Acute on chronic diastolic congestive heart failure Degenerative disc disease, lumbar Right upper lobe pneumonia Urinary tract infection after period of immobility Acute sepsis Abnormal ankle brachial index (DOROTHEA) (Acute) ISTAP type 3 skin tear of right hand (Acute) 12/16/23 Traumatic open wound of left lower leg with delayed healing (Acute) 12/16/23 Low back pain radiating to right lower extremity Lumbar radiculopathy, right Degenerative lumbar spinal stenosis AAA (abdominal aortic aneurysm) without rupture Cellulitis of lower extremity 11/25/23 Encephalopathy 11/22/23 Back pain Paroxysmal supraventricular tachycardia Chronic diastolic (congestive) heart failure Acute kidney injury superimposed on CKD 11/22/23 Ambulatory dysfunction Elevated troponin I level (Acute) 11/22/23 BERNADINE (acute kidney injury) (Acute) 11/22/23 Bilateral leg weakness (Acute) 11/22/23 Hypertension Hx of rheumatoid arthritis CAD (coronary artery disease) f/u [facility]ach[facility] pa Hematoma of right lower leg (Acute) 07/18/23 Greater trochanteric pain syndrome Opioid dependence Greater trochanteric bursitis of left hip Rotator cuff arthropathy of left shoulder Mechanical low back pain Medication monitoring encounter Acquired foot deformity Laceration of right knee (Acute) 08/16/21 Pressure ulcer of toe of left foot, stage 4 07/12/21 T12 compression fracture Fever (Acute) 06/23/21 Weakness (Acute) 06/23/21 Lower extremity edema (Chronic) 06/21/21 Acquired hammer toe (Chronic) Neuropathy (Chronic) Stage IV pressure ulcer (Acute) 05/29/21 Pes anserine bursitis Status post right knee replacement Traumatic open wound of right lower leg (Acute) 02/21/21 Immunosuppression due to chronic steroid use Traumatic open wound of right lower leg with delayed healing (Acute) 12/15/20 Laceration of elbow, left (Acute) 11/23/20 Dehydration (Acute) 10/27/20 Pneumonia due to 2019 novel coronavirus (Acute) 10/27/20 Acute respiratory failure with hypoxemia (Acute) 10/27/20 Acute respiratory failure with hypoxia 10/27/20 Multifocal pneumonia 10/27/20 Rheumatoid arthritis (Acute) SARS-CoV-2 positive (Acute) 10/17/20 Weakness (Acute) 10/17/20 Fall 10/17/20 Bilateral knee pain History of total right knee replacement Postural imbalance 08/22/20 Entrapment neuropathy of peripheral nerve of lower extremity Venous insufficiency of both lower extremities (Chronic) Traumatic open wound of right lower leg (Acute) 04/12/20 Pes anserinus tendonitis of right lower extremity Left knee DJD Traumatic wound (Acute) 11/11/19 Left knee pain (Chronic) Postoperative seroma (Chronic) L2-4 Lumbar postlaminectomy syndrome (Chronic) Acquired right foot 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 Lumbar compression fracture (Chronic) L1 acute on chronic MRI 03/[address] 10/17/2020 Pes anserine bursitis Right knee pain Degenerative joint disease of knee Myofascial pain (Chronic) Sacroiliitis (Chronic) 11/20/18 Cervical radiculopathy (Chronic) Greater trochanteric bursitis (Chronic) Lumbago (Chronic) Lumbar radiculitis (Chronic) Peripheral neuropathy (Chronic) Facet syndrome, lumbar (Chronic) CAD (coronary artery disease) (Chronic) Osteoarthritis (Chronic) Myocardial infarct, 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) 11/14/17 Hypertension (Chronic) Dyslipidemia (Chronic) Osteoporosis (Chronic) Rheumatoid arthritis of shoulder (Chronic) Lumbar spinal stenosis (Chronic) Medical History CAD (coronary artery disease) Open wound Sacral neurostimulator in situ Hx of supraventricular tachycardia AAA (abdominal aortic aneurysm) GERD (gastroesophageal reflux disease) Hx of migraines Hx of myocardial infarction (~2008) Lumbar spinal stenosis Postlaminectomy syndrome, lumbar region Dyslipidemia History of COVID-19 Neuropathy Right knee pain Surgical History Hx of toe surgery Hx of colonoscopy Hx of heart artery stent Hx of cardiac cath History of total shoulder replacement History of loop recorder S/P total knee arthroplasty History of lumbosacral spine surgery History of PTCA History of hysterectomy History of breast biopsy History of tonsillectomy History of adenoidectomy History of angioplasty Family History Father Myocardial infarction Brother Myocardial infarction Other Family history non-contributory Denies family history of Ovarian cancer Prostate cancer Breast cancer Colorectal cancer Social History Smoking Status: Former smoker Tobacco Type: Cigarettes Second Hand Exposure: No; Do You Dip or Chew Tobacco: No; Hx Alcohol Use: Yes Alcohol type: wine Alcohol type Comment: In the evenings. 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 ENT- oropharynx clear Neck- supple, no JVD. Lungs- clear to auscultation no wheezing or crackles Heart- regular rhythm; no murmur, no gallop. Abdomen- normal bowel sounds, soft, nontender, no distension Extremities- no pretibial edema, chronic skin changes seen in lower extremity. Neuro- alert, oriented x 3; PERRL, no facial palsy; no dysarthria; moves extremities Skin. Erythematous rash with blebs seen in the throat region, rash extending to the back of left ear to scalp. Results & Data Results & Data Vital Signs (Past 12 Hours) Vital Signs Temp Pulse Pulse Resp BP BP Pulse Ox 05/21/24 21:46 95 H 18 148/93 H 94 05/21/24 21:21 86 24 145/83 H 95 05/21/24 21:09 86 23 154/86 H 94 05/21/24 21:00 90 23 155/92 H 94 05/21/24 20:51 88 23 156/93 H 94 05/21/24 20:40 100 H 17 155/76 H 95 05/21/24 20:30 90 16 155/76 H 95 05/21/24 20:27 91 H 05/21/24 20:21 91 H 22 176/95 H 93 05/21/24 20:10 86 22 168/94 H 94 05/21/24 20:00 90 23 164/108 H 93 05/21/24 19:54 93 H 15 148/103 H 92 05/21/24 19:50 96 H 20 143/110 H 98 05/21/24 19:40 100 H 21 182/135 H 98 05/21/24 19:37 134 H 21 175/124 H 98 05/21/24 19:32 130 H 18 150/109 H 99 05/21/24 19:21 129 H 18 98 05/21/24 19:15 205/141 H 05/21/24 19:15 205/141 H 05/21/24 19:09 119 H 22 98 05/21/24 19:00 121 H 22 99 05/21/24 19:00 195/142 H 05/21/24 19:00 195/142 H 05/21/24 19:00 195/142 H 05/21/24 18:54 127 H 18 96 05/21/24 18:45 193/147 H 05/21/24 18:45 193/147 H 05/21/24 18:45 193/147 H 05/21/24 18:00 126 H 22 204/146 H 96 05/21/24 17:42 129 H 24 214/137 H 96 05/21/24 17:30 110 H 18 200/144 H 97 05/21/24 17:00 119 H 19 168/122 H 05/21/24 16:51 131 H 36 H 94 05/21/24 16:42 141 H 212/134 H 95 05/21/24 16:32 117 H 05/21/24 16:30 123 H 33 H 213/136 H 94 05/21/24 16:16 39.3 C H 132 H 35 H 213/136 H 87 L 05/21/24 16:16 39.3 C H 135 H 35 H 213/136 H 87 L O2 Del Method O2 Flow Rate 05/21/24 21:46 Nasal Cannula 3 05/21/24 21:21 Nasal Cannula 3 05/21/24 21:09 Nasal Cannula 3 05/21/24 21:00 Nasal Cannula 3 05/21/24 20:51 Nasal Cannula 3 05/21/24 20:40 Nasal Cannula 3 05/21/24 20:30 Nasal Cannula 3 05/21/24 20:27 05/21/24 20:21 Nasal Cannula 3 05/21/24 20:10 Nasal Cannula 3 05/21/24 20:00 Nasal Cannula 3 05/21/24 19:54 Nasal Cannula 3 05/21/24 19:50 05/21/24 19:40 05/21/24 19:37 05/21/24 19:32 Nasal Cannula 3 05/21/24 19:21 Nasal Cannula 3 05/21/24 19:15 05/21/24 19:15 05/21/24 19:09 Nasal Cannula 3 05/21/24 19:00 Nasal Cannula 3 05/21/24 19:00 05/21/24 19:00 05/21/24 19:00 05/21/24 18:54 Nasal Cannula 3 05/21/24 18:45 05/21/24 18:45 05/21/24 18:45 05/21/24 18:00 Room Air 05/21/24 17:42 05/21/24 17:30 05/21/24 17:00 05/21/24 16:51 Nasal Cannula 4 05/21/24 16:42 05/21/24 16:32 05/21/24 16:30 05/21/24 16:16 Room Air 05/21/24 16:16 Room Air Diagnostic Findings Laboratory Results WBC 8.45 K/ul (4.8-10.8) 05/21/24 16:38 RBC 4.61 M/uL (4.20-5.40) 05/21/24 16:38 Hgb 13.8 g/dl (12.0-16.0) 05/21/24 16:38 Hct 43.4 % (37.0-47.0) 05/21/24 16:38 MCV 94.1 fL (80.0-100.0) 05/21/24 16:38 MCH 29.9 pg (25.0-34.0) 05/21/24 16:38 MCHC 31.8 g/dL (32.0-36.0) L 05/21/24 16:38 RDW Std Deviation 53.3 fL (36.4-46.3) H 05/21/24 16:38 RDW Coeff of Bryan 15.4 % (11.5-14.5) H 05/21/24 16:38 Plt Count 354 K/uL (130-400) 05/21/24 16:38 MPV 9.0 fL (9.4-12.4) L 05/21/24 16:38 Immature Gran % (Auto) 0.6 % 05/21/24 16:38 Neut % (Auto) 79.4 % 05/21/24 16:38 Lymph % (Auto) 10.7 % 05/21/24 16:38 [place] % (Auto) 7.8 % 05/21/24 16:38 Eos % (Auto) 1.1 % 05/21/24 16:38 Baso % (Auto) 0.4 % 05/21/24 16:38 Neut # (Auto) 6.72 K/uL (1.40-6.50) H 05/21/24 16:38 Lymph # (Auto) 0.90 K/uL (1.20-3.40) L 05/21/24 16:38 [place] # (Auto) 0.66 K/uL (0.11-0.59) H 05/21/24 16:38 Eos # (Auto) 0.09 K/uL (0.00-0.50) 05/21/24 16:38 Baso # (Auto) 0.03 K/uL (0.00-0.20) 05/21/24 16:38 Immature Gran # (Auto) 0.05 K/uL (0.01-0.20) 05/21/24 16:38 PT 10.3 Seconds (9.0-12.0) 05/21/24 16:38 INR 0.9 (0.9-1.1) 05/21/24 16:38 APTT 24 Seconds (21-31) 05/21/24 16:38 PTT Ratio 0.9 05/21/24 16:38 Sodium 138 mmol/L (136-145) 05/21/24 16:38 Potassium 4.1 mmol/L (3.5-5.1) 05/21/24 16:38 Chloride 100 mmol/L (98-107) 05/21/24 16:38 Carbon Dioxide 28 mmol/L (21-32) 05/21/24 16:38 Anion Gap 10 (3-11) 05/21/24 16:38 BUN 19 mg/dl (6-23) 05/21/24 16:38 Creatinine 0.92 mg/dl (0.6-1.2) 05/21/24 16:38 Est Cr Clr Drug Dosing 41.1 ml/min 05/21/24 16:38 eGFR 59.89 05/21/24 16:38 BUN/Creatinine Ratio 20.7 (10-20) H 05/21/24 16:38 Glucose 140 mg/dl (70-99(Fasting)) H 05/21/24 16:38 Lactate 1.2 mmol/L (0.4-2.0) 05/21/24 19:30 Calcium 10.4 mg/dl (8.6-10.3) H 05/21/24 16:38 Magnesium 2.0 mg/dl (1.7-2.4) 05/21/24 16:38 Total Bilirubin 0.5 mg/dl (0.2-1.0) 05/21/24 16:38 Direct Bilirubin 0.2 mg/dl (0-0.2) 05/21/24 16:38 AST 15 U/L (13-39) 05/21/24 16:38 ALT 4 U/L (7-52) L 05/21/24 16:38 Alkaline Phosphatase 66 U/L (34-104) 05/21/24 16:38 Troponin I High Sens 50.0 pg/ml (0-14) H* D 05/21/24 19:30 B-Natriuretic Peptide 324 pg/ml (0-100) H 05/21/24 19:30 Total Protein 8.4 gm/dl (6.0-8.3) H 05/21/24 16:38 Albumin 4.3 gm/dl (3.4-5.0) 05/21/24 16:38 Procalcitonin 0.06 ng/ml (0-0.5) 05/21/24 16:38 Urine Color Yellow 05/21/24 Unknown Urine Appearance Cloudy (Clear) A 05/21/24 Unknown Urine pH 7.5 (4.5-7.5) 05/21/24 Unknown Ur Specific Joseph 1.015 (1.000-1.030) 05/21/24 Unknown Urine Protein 2+ (Negative) H 05/21/24 Unknown Urine Glucose (UA) Negative (Negative) 05/21/24 Unknown Urine Ketones Trace (Negative) H 05/21/24 Unknown Urine Blood 2+ (Negative) H 05/21/24 Unknown Urine Nitrite Negative (Negative) 05/21/24 Unknown Urine Bilirubin Negative (Negative) 05/21/24 Unknown Urine Urobilinogen Negative (Negative) 05/21/24 Unknown Ur Leukocyte Esterase Negative (Negative) 05/21/24 Unknown Urine WBC (Auto) 0-5 /hpf (0-5) 05/21/24 Unknown Urine RBC (Auto) >20 /hpf (0-2) H 05/21/24 Unknown U Hyaline Cast (Auto) 0-2 /lpf (0-2) 05/21/24 Unknown U Epithel Cells (Auto) 0-2 /hpf (0-2) 05/21/24 Unknown Urine Bacteria (Auto) None Seen (None Seen) 05/21/24 Unknown Adenovirus (PCR) Not Detected (NotDetected) 05/21/24 16:38 B. pertussis DNA (PCR) Not Detected (NotDetected) 05/21/24 16:38 B.parapertussis DNA PCR Not Detected (NotDetected) 05/21/24 16:38 C. pneumoniae DNA (PCR) Not Detected (NotDetected) 05/21/24 16:38 Coronavirus OC43 (PCR) Not Detected (NotDetected) 05/21/24 16:38 Coronavirus HKU1 (PCR) Not Detected (NotDetected) 05/21/24 16:38 Coronavirus 229E (PCR) Not Detected (NotDetected) 05/21/24 16:38 SARS-CoV-2 (PCR) Not Detected (NotDetected) 05/21/24 16:38 Coronavirus NL63 (PCR) Not Detected (NotDetected) 05/21/24 16:38 Human Metapneumovir PCR Not Detected (NotDetected) 05/21/24 16:38 Influenza Type A (PCR) Not Detected (NotDetected) 05/21/24 16:38 Influenza Type B (PCR) Not Detected (NotDetected) 05/21/24 16:38 M. pneumoniae (PCR) Not Detected (NotDetected) 05/21/24 16:38 Parainfluenza 1 (PCR) Not Detected (NotDetected) 05/21/24 16:38 Parainfluenza 2 (PCR) Not Detected (NotDetected) 05/21/24 16:38 Parainfluenza 3 (PCR) Not Detected (NotDetected) 05/21/24 16:38 Parainfluenza 4 (PCR) Not Detected (NotDetected) 05/21/24 16:38 RSV (PCR) Not Detected (NotDetected) 05/21/24 16:38 Entero/Rhino (PCR) Not Detected (NotDetected) 05/21/24 16:38 Impressions Chest X-Ray 05/21/24 16:51 EXAM: Portable AP chest radiograph TECHNIQUE: AP portable radiograph of the chest was obtained. INDICATION: Shortness of breath. Comparison: Chest radiograph January 04, 2024 FINDINGS: LINES and TUBES: Loop recorder/leadless pacemaker. CARDIOVASCULAR: Cardiac silhouette is stably enlarged in size. LUNGS/PLEURA: Mild pulmonary vascular congestion. New pulmonary infiltrates in the right lung base. Left perihilar scarring. No significant pleural fluid. No discernible pneumothorax. OSSEOUS/OTHER: No displaced acute osseous process identified. 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 IMPRESSION: New infiltrates in the right lung base consistent with pneumonia. Recommended chest radiograph follow-up in 4-6 weeks after appropriate treatment to ensure resolution. Electronically signed by Antwan Lloyd 05-21-2024 5:22 PM ECG Additional Comments: A-fib with rapid ventricular response rate of 134. Nonspecific ST and T wave abnormality. Code Status & VTE Plan VTE Prophylaxis Plan VTE Prophylaxis will be ordered: Yes
[2024-05-21] MEDS: Heparin IV Adult Wt-Based Low-Dose *NO* INITIAL Bolus Protocol IV SCH (23:00)
[2024-05-21] MEDS: HEPARIN 25000 UNIT/500 ML D5W 25,000 UNITS/500 ML BAG IV SCH (23:12)
[2024-05-21] MEDS: OPTIRAY 320 125ml IV ONE (23:58)
[2024-05-22] MEDS ORDERED: NITROGLYCERIN SL 0.4 MG/TAB TAB SL PRN (00:27)
[2024-05-22] MEDS ORDERED: DICYCLOMINE HCL 10 MG CAP PO PRN (00:27)
[2024-05-22] MEDS ORDERED: DOCUSATE SODIUM 100 MG CAP PO PRN (00:27)
[2024-05-22] MEDS ORDERED: NON-FORMULARY MEDICATION (Buprenorphine 15 mcg/hour patch weekly) TOP SCH (00:27)
--- NOTE | 2024-05-22 01:21 | CT Scan Report ---
EXAM: CT angio chest PE protocol CLINICAL HISTORY: PE TECHNIQUE: CT angiography of the chest was performed with and without intravenous contrast with the following protocol: axial images with, reconstructed coronal and sagittal images. Non-contrast images were initially acquired, followed by contrast-enhanced images in arterial and venous phases. Intravenous contrast 118 ml optiray 320 was administered using automated injection techniques. Bolus tracking was employed to optimize arterial phase imaging. One of these 3D techniques was utilized: Maximum Intensity Pixel (MIP), 3D Reconstructed Images, Volume Rendered Images, Surface Shaded Rendering. One of the following dose reduction techniques was utilized for this exam: Automated exposure control, adjustment of the mA and/or kV according to patient size, and use of iterative reconstruction. COMPARISON: 10/27/2020 FINDINGS: Aorta and Great Vessels: Ascending Aorta: Normal in caliber, no aneurysm, dissection, or significant atherosclerosis. Aortic Arch: Normal in caliber, no aneurysm, dissection, or significant atherosclerosis. Descending Aorta: Normal in caliber, no aneurysm, dissection, or significant atherosclerosis. Pulmonary Arteries: The main pulmonary artery and its branches are patent. No evidence of pulmonary embolism or significant stenosis. Heart: Cardiac Chambers: Normal in size. No evidence of cardiomegaly. Pericardium: No pericardial effusion or thickening. Suggestion of leadless pacemaker in the chest wall Lungs and Pleura: Multifocal areas of ground glass densities with interlobular septal thickening and nodular opacities are noted involving both lung medina. There is a right lower lobe confluenting consolidation. There is trace of right effusion. Mediastinum: No mediastinal mass or abnormal lymphadenopathy. Normal appearance of the trachea and central bronchi. Hilar Structures: Hilar structures are normal without enlargement. Chest Wall: No mass lesions or abnormalities in the chest wall. Vascular Structures: Superior Vena Cava: Patent without evidence of stenosis or thrombus. Inferior Vena Cava: Patent without evidence of stenosis or thrombus. Upper abdomen: The sections from upper abdomen demonstrate a rounded fluid attenuating area measuring 2.0 x 1.8 cm with peripheral rim of calcification is seen in close proximity to the mid body of pancreas. Mild left-sided perinephric fat stranding. Bones and Soft Tissues: Age-indeterminate fracture of the right 12th rib is noted. Age-indeterminate fractures of T12 and L1 vertebral bodies is noted with loss of more than 50% vertebral body heights. No retropulsion or retrolisthesis is appreciated. Multilevel moderate thoracic degenerative changes. Mild degenerative changes at both shoulder joints. Patient is s/p right shoulder arthroplasty. Soft tissues are unremarkable. IMPRESSION: 1. Scattered areas of ground glass density with interlobular septal thickening and nodular opacities are seen. 2. Right lower lobe airspace confluent in consolidation with trace of right pleural effusion, interval new finding. 3. The constellation of findings suggests acute on chronic infective etiology when compared to prior study. Recommend clinical correlation and follow-up. 4. Fluid attenuating lesion is noted in close in addition to body of pancreas, not appreciated on prior. Further assessment with enhanced CT abdomen is recommended. 5. Age-indeterminant fracture of right 12th rib, T12 and L1 vertebral bodies. Electronically signed by Alan Pineda 05-22-2024 01:21 AM
[2024-05-22] MEDS: PIPERACILLIN/TAZOBACTAM 4.5 GM/100 ML BAG IV SCH (01:50)
[2024-05-22] MEDS: valACYclovir HCL 500 MG TABLET PO ONE (01:50)
[2024-05-22] MEDS: AZITHROMYCIN 250 MG TAB PO ONE (02:14)
[2024-05-22] MEDS: METOPROLOL TARTRATE 1 MG/ML VIAL IV PRN (05:23)
[2024-05-22 05:59] LABS: Basophils # (auto) 0.03 K/uL (0.00-0.20); Basophils % (auto) 0.3 %; Eosinophils # (auto) 0.02 K/uL (0.00-0.50); Eosinophils % (auto) 0.2 %; Hematocrit (blood only) 38.9 % (37.0-47.0); Hemoglobin 12.4 g/dl (12.0-16.0); Immature Granulocytes # (auto) 0.09 K/uL (0.01-0.20); Immature Granulocytes % (auto) 0.8 %; Lymphocytes % (auto) 4.5 %; Mean Corpuscular Hemoglobin 29.5 pg (25.0-34.0); Mean Corpuscular Hgb Conc 31.9 g/dL (32.0-36.0); Mean Corpuscular Volume 92.4 fL (80.0-100.0); Mean Platelet Volume 9.2 fL (9.4-12.4); Monocytes # (auto) 0.68 K/uL (0.11-0.59); Monocytes % (auto) 6.1 %; Neutrophils % (auto) 88.1 %; Platelet Count 303 K/uL (130-400); RDW Coefficient of Variation 15.2 % (11.5-14.5); RDW Standard Deviation 51.6 fL (36.4-46.3); Red Blood Count 4.21 M/uL (4.20-5.40); White Blood Count 11.22 K/ul (4.8-10.8)
[2024-05-22 06:10] LABS: Troponin I High Sensitivity 47.9 pg/ml (0-14)
[2024-05-22 06:11] LABS: ANTI-Xa, UFH(UnfractionatedHep 0.35 IU/ml (0.3-0.7)
--- OUTSIDE RECORDS SUMMARY | 2024-05-22 06:11 | External Medical Summary | Summary of Care ---
Author Name Unknown Organization [facility] Address [address] [place] [address] Phone [phone] Care Team Providers Care Optical Designer Name Role Phone DarinCandice diaz Jose Miguel SOLANO Primary Care Provider Reason for Visit * Reason Onset Date Comments Immunization RSV Vaccine 04/28/2024 Encounter Details Date Type Department Care Team (Late st Contact Info) Description 04/28/2024 11:45 AM EST Nurse Only Family Practice [address] [phone] College, Nurse [facility] [address] [address] Immunization RSV Vaccine Allergies Active Allergy Reactions Criticality Noted Date Comments Codeine Nausea/vomiting 03/23/2014 Hydroxychloroquine Rash 07/18/2021 Patient reported red itchy rash to neck after taking medication for 1 day Lisinopril Cough 12/09/2009 Pregabalin Edema Other 09/07/2016 Edema in the feet Morphine Anaphylaxis High 04/10/2011 Shrimp Flavor Agent (Non-Screening) Nausea/vomiting 12/28/2015 Sulfa Antibiotics Nausea/vomiting 08/09/2000 Adhesive Tape Itching 08/25/2014 documented as of this encounter (statuses as of 05/20/2024) Medications Aspirin 81 MG Tablet Take 1 Tablet by mouth 3 times a week. 34 Tab 5 02/08/20 15 Active amoxicillin (AMOXIL) 500 MG Capsule 4 01/07/20 19 Active Melatonin 3 MG Oral CapsuleIndication s:as needed Take 1-2 Capsules by mouth at bedtime as needed for Insomnia. Active Triamcinolone Acetonide 0.1 % External Cream (Aristocort)Indic ations:Herpes zoster without complication Apply topically to affected area 2 times a day. To affected area. 15 g 5 04/01/19 24 Active Calcium-Vitamins C & D 500-10-250 MG-MG-UNIT Oral Tablet Chewable Take by mouth. Active Furosemide 20 MG Oral Tablet (Lasix)Indication s:Hypertension goal BP (blood pressure) < 130/80,Edema, unspecified type TAKE 1 TABLET BY MOUTH 3 DAYS PER WEEK 40 Tablet 3 04/17/19 24 Active Polyethylene Glycol 3350 17 GM Oral Packet (Miralax) Take 1 Packet by mouth in the morning. Active Gabapentin 300 MG Oral Capsule (Neurontin)Indica tions:Spinal stenosis of lumbar region with neurogenic claudication Take 1 Capsule by mouth in the morning and 1 Capsule before bedtime. 180 Capsule 3 08/21/19 24 Active Ocuvite-Lutein Oral Tablet Take by mouth. Act le iVIZIA Dry Eyes 0.5 % Ophthalmic Solution (Povidone (PF)) Instill into eye. Active Famotidine 20 MG Oral Tablet (Pepcid) Take 1 Tablet by mouth every night at bedtime. 90 Tablet 3 10/24/19 24 Active Rosuvastatin Calcium 40 MG Oral Tablet (Crestor)Indicati ons:Old myocardial infarct,Dyslipide danette, goal to be determined TAKE 1 TABLET BY MOUTH EVERY DAY 90 Tablet 2 10/31/19 24 Active Additional Information Patient taking differently:40 mg Oral Daily(AM), Takes at bed, Reported on 05/19/2024 Acetaminophen 500 MG Oral Tablet (Tylenol Extra Strength) Take 1 Tablet by mouth at bedtime as needed for Pain, Breakthrough. Active Isosorbide Mononitrate ER 30 MG Oral Tablet Extended Release 24 Hour (Imdur)Indication s:Coronary artery disease of [place] artery of [place] heart with stable angina pectoris (HCC) Take 1 Tablet by mouth in the morning. 90 Tablet 3 12/13/19 24 Active Additional Information Patient not taking.Reported on 05/19/2024 Vitamin C 500 MG Oral Capsule Take by mouth. Ac tive Colesevelam HCl 625 MG Oral Tablet (Welchol) Take by mouth 2 times a day with morning and evening meals. Active Calcium Carb-Cholecalcife rol 500-10 MG-MCG Oral Tablet (SM Oyster Shell Calcium/Vit D) Take by mouth. Active Similasan Dry Eye Relief Ophthalmic Solution Instill into eye. Active Vitamin D (Cholecalciferol) 25 MCG (1000 UT) Oral Tablet Take by mouth. Act le Docusate Sodium 100 MG Oral Capsule (Colace) Take 1 Capsule by mouth 2 times a day as needed for Constipation. 60 Capsule 5 02/14/20 24 Active Buprenorphine 15 MCG/HR Transdermal Patch Weekly Place 1 Patch topically on the skin once a week. 02/12/20 24 Active traMADol HCl 50 MG Oral Tablet (Ultram) Take 1 Tablet by mouth every 6 hours as needed. 03/16/19 25 Active Xeljanz 10 MG Oral Tablet (Tofacitinib Citrate) Take by mouth. Activ e Simethicone 80 MG Oral Tablet (Bicarsim) Take 1 Tablet by mouth every 8 hours as needed for Gas. 90 Tablet 3 03/26/19 25 Active Metoprolol Succinate ER 25 MG Oral Tablet Extended Release 24 Hour (toPROL XL)Indications:Ol d myocardial infarct TAKE 1 TABLET BY MOUTH TWO TIMES DAILY 180 Tablet 3 04/02/19 25 Active Arexvy 120 MCG/0.5ML Intramuscular Suspension Reconstituted (RSV PreF3 Vac Recomb Adjuvanted)Indica tions:Need for RSV vaccination Inject 0.5 mL into a large muscle once for 1 dose. 1 Each 04/28/2024 1:32 PM EST 04/28/19 25 025 documented as of this encounter (statuses as of 05/20/2024) Active Problems Problem Noted Date Diagnosed Date Stage 3 chronic kidney disease 05/12/2024 Immunodeficiency 05/12/2024 Migraine without status migrainosus, not intract able 05/12/2024 Collapsed vertebra, not else where classified, thoracic region, initial encounter for fracture 05/12/2024 Asymptomatic bilateral carotid artery stenosis 1 Rheumatoid arthritis with rh eumatoid factor of multiple sites without organ or systems involvement 09/10/2023 Opioid dependence, uncomplicated 04/10/2023 Atherosclerosis of [place] co ronary artery without angina pectoris 04/10/2023 [...] artery disease of n ative artery of [place] heart with stable angina pectoris 08/21/2019 Gastro-esophageal reflux disease without esophag itis 08/21/2019 Supraventricular tachycardia 03/31/2019 Dyslipidemia 03/31/2019 Pancreatic cyst 03/31/2019 Chronic constipation 02/26/2019 AAA (abdominal aortic aneurysm) 01/27/2019 Overview (01/27/2019): 3.3 cm AAA noted on ct abd/pel 12/18/18 Status post placement of implantable loop record er 05/13/2018 Paroxysmal VT 02/04/2018 HTN, goal below 130/80 07/26/2014 S/P angioplasty with stent 10/31/2011 Old myocardial infarct 04/06/2009 Arthritis, rheumatoid 07/11/2006 Generalized osteoarthritis 10/30/2000 documented as of this encounter (statuses as of 05/20/2024) Resolved Problems Problem Noted Date Diagnosed Date [...] Overview: Per CKD protocol Polyneuropathy 08/21/2019 05/11/2022 Overview (05/11/2022): Dm combo code on pl Sacroiliitis 08/21/2019 11/08/2020 Age-related osteoporosis wit hout current pathological fracture 03/31/2019 07/09/2021 Change in bowel habit 01/13/20192019 Overview (08/10/2019): Acute. Kidney disease, chronic, sta ge III (GFR 30-59 ml/min) 12/22/2018 02/25/2020 Overview: Per CKD protocol CAD (coronary artery disease) 10/31/2011 11/06/2020 [employer] Other*[id number] 10/31/2011 04/17/2016 Overview (10/31/2011): Study Title: Genomic Markers for Patients with Cardiovascular Disease Project # [id number] Traffic Control Officer: Yasemin Timmons MD [phone] [facility] 10/15/2011 01/27/2017 Dyslipidemia, goal to be determined 02/15/2009 09/26/2013 Overview (02/15/2009): Per Lipid Taxonomy. Other allergic rhinitis 08/08/200103/2019 Overview (08/10/2019): ICD-10 update of inactive term Acute. PURE HYPERCHOLESTEROLEM 10/30/200010/2008 Overview (02/15/2009): Per Lipid Taxonomy. documented as of this encounter (statuses as of 05/20/2024) Immunizations Name Administration Dates Next Due COVID-19 mRNA, LNP-s, No Pre serve, 2-Dose Series (Moderna) 05/04/2020,04/04/2020 COVID-19, MRNA-LNP, PF, 30 M CG/0.3 mL, 12 YRS AND ABOVE, IM (PFIZER-Comirnaty) 12/13/2023 COVID-19, mRNA, LNP-s, PF, B ooster, 100mcg/0.5mg (Moderna) 03/16/2021 Covid-19, Mrna, Lnp-s, Pf, B ivalent, 50 Mcg, IM, 12 yrs and above (Moderna) 11/21/2021 Pneumococcal Conjugate Vacc, 13 Valent (Prevnar) 04/16/2014 RSV Vac., Recomb, Adjuvant, PF,0.5 Ml (Arexvy) 04/28/2024 Season Influenza, Quad, PF, Adjuvanted, 65+ Yrs, [...] ages 0-17 years) Not on file 04/09/2023 Comments No Sex and Gender Information Value Date Recorded Sex Assigned at Not on file Legal Sex Female 4:51 AM EST Gender Identity Not on file Sexual Orientation Not on file documented as of this encounter Patient Instructions * Patient Instructions* Maude Coombs LPN - 04/28/2024 12:26 PM EST Possible side effects of RSV vaccine, (Respiratory Syncytial Virus), are usually mild and can include: Soreness, swelling or redness at injection site Low grade fever Body aches or joint pain Headache Nausea or diarrhea You may use a fever/pain reducing medication for these symptoms. LET YOUR DOCTOR KNOW IMMEDIATELY IF YOU HAVE DIFFICULTY BREATHING OR SWALLOWING, EXPERIENCE ITCHINGOF FEET OR HANDS, HAVE SWELLING OF EYES, FACE OR INSIDE OF NOSE. documented in this encounter Plan of Treatment Upcoming Encounters Date Type Department Care Team (Late st Contact Info) Description 05/21/2024 11:15 AM EDT Scheduled Telephone Family Practice [address] [facility] [address] [place] [id number] College, Nurse [facility] [address] [address] 06/01/2024 11:15 AM EDT Imaging Radiology [facility] [address] [facility] [place] [phone] 06/10/2024 11:10 AM EDT Office Visit Vascular Surgery, [facility] [address] [facility] [place] [phone] Alvarez Newberry MD [address] [place] [address] 06/11/2024 10:40 AM EDT Office Visit Family Practice [address] [place] [address] [address] [place] [phone] Anthony Leo, [address] [place] [address] 06/29/2024 1:30 PM EDT Office Visit Cardiology, [facility] [address] [facility] [place] [address] Sumeet Bergeron MD [address] [facility] [place] [address] 10/22/2024 8:45 AM EDT Office Visit [facility] [address] [place] [address] Babatunde Yanes MD [address] [place] [address] Scheduled Procedures Name Priority Associated Diagnoses Date/Ti me COLONOSCOPY FLEXIBLE PROXIMAL DIAGNOSTIC Recall History of colon polyps Health Maintenance Due Date Last Done Comments Adult Wellness Visit 04/14/2015 04/14/2014 DXA Scan 09/29/2020 09/29/2018, 04/04/2013, 06/10/2013 CKD PHOS USE SMARTSET 11207 12/21/2021 12/21/2020 Colonoscopy 12/30/2021 12/30/2018, 12/30/2018 COVID-19 Vaccine (5 - Moderna risk season) 2024 12/13/2023, 11/21/2021, 03/16/2021, Additional history exists Albumin/Creatinine Ratio 09/09/2024 09/10/2023 Depression Screening 09/09/2024 09/10/2023 CKD HGB USE SMARTSET 43751 01/17/202501/17, 01/11/2024, 01/02/2024, Additional history exists DTap/Tdap Vaccines (3 - Td or Tdap) 06/10/2033 06/11/2023, 05/14/2013, 11/19/2003 Pneumococcal Vaccine: 50+ Years Completed 04/16/2014, 07/30/2001 Zoster Vaccines Completed 01/05/2019, 08/09, 08/29/2011 VITAMIN D LEVEL ONCE IN A LIFETIME-USE SMARTSET# [id number] Completed 09/10/2023 Diabetic Eye Exam Discontinued 09/17/2023, , 09/26/2021, Additional history exists Influenza Vaccine (FLU shot) Completed 12/13/2023, 12/04/2022, 02/20/2022, Additional history exists HPV (Gardasil) Vaccine Aged Out No lo nger eligible based on patient's age to complete this topic Hepatitis B Vaccine Aged Out No longe r eligible based on patient's age to complete this topic MENINGOCOCCAL (MENACTRA/MENVEO) Aged Out No longer eligible based on patient's age to complete this topic Meningitis B Vaccine (Bexsero/Trumemba) Aged Out No longer eligible based on patient's age to complete this topic documented as of this encounter Medical Devices Implanted Type Area Pi/Senior Research Associate Device Identifier Shelf Expiration Date Model / Serial / Lot Lens 19.0 Mx60 - [id number] Implanted:Qty: 1 on 12/28/2015 by Jorge L Alex MD at OR [facility] Left: Eye [employer] : SURGICAL 02/07/2018 MX60-19.0 / [id number] / [id number] Lens 20.5 Mx60 - [id number] - [id number] Implanted:Qty: 1 on 01/25/2016 by Jorge L Alex MD at OR [facility] [employer] : SURGICAL 03/10/2018 MX60-20.5 / [id number] / [id number] Percutaneous Extension 2201bun - [id number] Implanted:Qty: 1 on 08/05/2020 by Disha Melendez MD at OR [facility] N/A: Buttocks [employer] 03/30/2022 [id number] / / Kit Tined Lead - [id number] Implanted:Qty: 1 on 08/05/2020 by Disha Melendez MD at OR [facility] N/A: Buttocks [employer] 07/16/2022 1201 / / Neurostimulator - [id number] Implanted:Qty: 1 on 08/15/2020 by Disha Melendez MD at OR [facility] Right: Back [employer] 11/26/2021 1101 / / documented as of this encounter Visit Diagnoses Diagnosis Need for RSV vaccination- Primary Need for prophylactic vaccination and inoculation against respiratory syncytial virus documented in this encounter Advance Directives * [...] and were consensually agreed upon. Care Teams Optical Designer Relationship Specialty Start Date End Date Candice Mcnair DO [address] [facility] [place] [address] PCP - General Family Medicine 01/28/24 documented as of this encounter
--- OUTSIDE RECORDS SUMMARY | 2024-05-22 06:12 | External Medical Summary | Summary of Care ---
Author Name Unknown Organization [facility] Address [address] [place] [address] Phone [phone] Care Team Providers Care General Maintenance Mechanic Name Role Phone Candice Mcnair DO Primary Care Provider [phone] Reason for Visit * Reason Onset Date Comments Other 05/19/2024 Information 05/19/202405/19 Encounter Details Date Type Department Care Team (Late st Contact Info) Description 05/19/2024 Telephone Family Practice [facility] [address] [place] [phone] Candice Mcnair [address] [place], [place] [id number] Other; Information (05/19) Allergies Active Allergy Reactions Criticality Noted Date [...] as of this encounter (statuses as of 05/19/2024) Medications Aspirin 81 MG Tablet Take 1 Tablet by mouth 3 times a week. 34 Tab 5 11/30/201 5 Active amoxicillin (AMOXIL) 500 MG Capsule 4 9 Active Melatonin 3 MG Oral CapsuleIndicatio ns:as needed Take 1-2 Capsules by mouth at bedtime as needed for Insomnia. Active Triamcinolone Acetonide 0.1 % External Cream (Aristocort)Toma cations:Herpes zoster without complication Apply topically to affected area 2 times a day. To affected area. 15 g 5 4 Active Calcium-Vitamins C & D 500-10-250 MG-MG-UNIT Oral Tablet Chewable Take by mouth. Active Furosemide 20 MG Oral Tablet (Lasix)Indicatio ns:Hypertension goal BP (blood pressure) < 130/80,Edema, unspecified type TAKE 1 TABLET BY MOUTH 3 DAYS PER WEEK 40 Tablet 3 4 Active Polyethylene Glycol 3350 17 GM Oral Packet (Miralax) Take 1 Packet by mouth in the morning. Active Gabapentin 300 MG Oral Capsule (Neurontin)Indic ations:Spinal stenosis of lumbar region with neurogenic claudication [...] Active Rosuvastatin Calcium 40 MG Oral Tablet (Crestor)Indicat ions:Old myocardial infarct,Dyslipid emia, goal to be determined TAKE 1 TABLET BY MOUTH EVERY DAY 90 Tablet 2 4 Active Additional Information Patient taking differently:40 mg Oral Daily(AM), Takes at bed, Reported on 05/19/2024 Acetaminophen 500 MG Oral Tablet (Tylenol Extra Strength) Take 1 Tablet by mouth at bedtime as needed for Pain, Breakthrough. 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 90 Tablet 3 4 Active Additional Information Patient not taking.Reported on 05/19/2024 Vitamin C 500 MG Oral Capsule Take by mouth. Ac tive Colesevelam HCl 625 MG Oral Tablet (Welchol) Take by mouth 2 times a day with morning and evening meals. Active Calcium Carb-Cholecalcif tyrone 500-10 MG-MCG Oral Tablet (SM Oyster Shell Calcium/Vit D) Take by mouth. Active Similasan Dry Eye Relief Ophthalmic Solution Instill into eye. Active Vitamin D (Cholecalciferol ) 25 MCG (1000 UT) Oral Tablet Take by mouth. Active Docusate Sodium 100 MG Oral Capsule (Colace) Take 1 Capsule by mouth 2 times a day as needed for Constipation. 60 Capsule 5 4 Active Buprenorphine 15 MCG/HR Transdermal Patch Weekly Place 1 Patch topically on the skin once a week. 4 Active traMADol HCl 50 MG Oral Tablet (Ultram) Take 1 Tablet by mouth every 6 hours as needed. 5 Active Xeljanz 10 MG Oral Tablet (Tofacitinib Citrate) Take by mouth. Activ e Simethicone 80 MG Oral Tablet (Bicarsim) Take 1 Tablet by mouth every 8 hours as needed for Gas. 90 Tablet 3 5 Active Metoprolol Succinate ER 25 MG Oral Tablet Extended Release 24 Hour (toPROL XL)Indications:O ld myocardial infarct TAKE 1 TABLET BY MOUTH TWO TIMES DAILY 180 Tablet 3 5 Active documented as of this encounter (statuses as of 05/19/2024) Active Problems Problem Noted Date Diagnosed Date Stage 3 chronic kidney disease 05/12/2024 Immunodeficiency 05/12/2024 Migraine without status migrainosus, not intract able 05/12/2024 Collapsed vertebra, not else where classified, thoracic region, initial encounter for fracture 05/12/2024 Asymptomatic bilateral carotid artery stenosis 1 Rheumatoid arthritis with rh eumatoid factor of multiple sites without organ or systems involvement 09/10/2023 Opioid dependence, uncomplicated 04/10/2023 Atherosclerosis of soboba co ronary artery without angina pectoris 04/10/2023 [...] artery disease of n ative artery of soboba heart with stable angina pectoris 08/21/2019 Gastro-esophageal [...] as of this encounter (statuses as of 05/19/2024) Resolved Problems Problem Noted Date Diagnosed Date [...] artery disease) 10/31/2011 11/06/2020 [employer] Other*[id number] 10/31/2011 04/17/2016 Overview (10/31/2011): Study Title: Genomic Markers for Patients with Cardiovascular Disease Project # [id number] Furnace Door Tender: Yasemin Timmons MD [phone] Dyspnea 10/15/2011 01/27/2017 Dyslipidemia, goal to be determined 02/15/2009 09/26/2013 Overview (02/15/2009): Per Lipid Taxonomy. Other allergic rhinitis 08/08/200103/2019 Overview (08/10/2019): ICD-10 update of inactive term Acute. PURE HYPERCHOLESTEROLEM 10/30/200010/2008 Overview (02/15/2009): Per Lipid Taxonomy. documented as of this encounter (statuses as of 05/19/2024) Immunizations Name Administration Dates Next Due COVID-19 [...] No 04/09/2023 Does the household have a [facility] source of income? (Household - for ages [...] encounter Miscellaneous Notes * Telephone Encounter - Lauren Adams LPN - 05/19/2024 10:58 AM EDT Pt returned call. States she is feeling worse. Now feels it is in her chest. Agreeable to OV at 3:00 today. desk maker - please place on Dr. Mcnair schedule at 3:00 today. * Telephone Encounter - Lauren Adams LPN - 05/19/2024 10:45 AM EDT Call placed to pt - no answer. Unable to leave message as mail box is full. Call placed to daughter - no answer. Message left to return call to [phone]. * Telephone Encounter - Aydee Valdivia OSA - 05/19/2024 9:17 AM EDT Pt's daughter (Bhavani) calling regarding appt for her mother. She would like return phone call to her cell [phone]. * Telephone Encounter - Aydee Valdivia OSA - 05/19/2024 8:44 AM EDT Pt complaining of "terrible cold" and sore throat. She wants an appt today but nothing available. Requesting call back. documented in this encounter Plan of Treatment Upcoming Encounters Date Type Department Care Team (Late st Contact Info) Description 05/21/2024 11:15 AM EDT Scheduled Telephone Family Practice [address] [place] [address] [address] [place] [address] College, Nurse [facility] Prac [address] [place] [address] 06/01/2024 11:15 AM EDT Imaging Radiology [facility] 1st [facility] [address] [place] [phone] 06/10/2024 11:10 AM EDT Office Visit Vascular Surgery, [facility] 132 [facility] [place] [address] Alvarez Newberry MD [address] [place] [address] 06/11/2024 10:40 AM EDT Office Visit Family Practice [address] [place] [address] 293 [place] [address] Anthony Leo, 293 [facility] [address] 06/29/2024 1:30 PM EDT Office Visit Cardiology, [facility] 132 [facility] [place] [address] Sumeet Bergeron MD [facility] [place] [address] 10/22/2024 8:45 AM EDT Office Visit Dermatology [facility] 200 [facility] [place] [address] Babatunde Yanes MD 200 [place] [address] Scheduled Procedures Name Priority Associated Diagnoses Date/Ti me COLONOSCOPY FLEXIBLE PROXIMAL DIAGNOSTIC Recall History of colon polyps Health Maintenance Due Date Last Done Comments Adult Wellness Visit 04/14/2015 04/14/2014 DXA Scan 09/29/2020 09/29/2018, 04/2013, 06/10/2013 CKD PHOS USE SMARTSET [id number] 12/21/2021 12/21/2020 Colonoscopy 12/30/2021 12/30/2018, 12/30/2018 COVID-19 Vaccine (5 - Moderna risk 2023- season) 2024 12/13/2023, 11/21/2021, 03/16/2021, Additional history exists Albumin/Creatinine Ratio 09/09/2024 09/10/2023 Depression Screening 09/09/2024 09/10/2023 CKD HGB USE SMARTSET 86989 01/17/202501/17, 01/11/2024, 01/02/2024, Additional history exists DTap/Tdap Vaccines (3 - Td or Tdap) 06/10/2033 06/11/2023, 05/14/2013, 11/19/2003 Pneumococcal Vaccine: 50+ Years Completed 04/16/2014, 07/30/2001 Zoster Vaccines Completed 01/05/2019, 08/09, 08/29/2011 VITAMIN D LEVEL ONCE IN A LIFETIME-USE SMARTSET# [id number] Completed 09/10/2023 Diabetic Eye Exam Discontinued 09/17/2023, [...] this encounter Medical Devices Implanted Type Area Fiberglass Boat Parts Finisher Device Identifier Shelf Expiration Date Model / Serial / Lot Lens 19.0 Mx60 - [id number] Implanted:Qty: 1 on 12/28/2015 by Jorge L Alex MD at OR [facility] Left: Eye [employer] : SURGICAL 02/07/2018 MX60-19.0 / [id number] / [id number] Lens 20.5 Mx60 - [id number] - [id number] Implanted:Qty: 1 on 01/25/2016 by Jorge L Alex MD at OR [facility] [employer]OM[employer] : SURGICAL 03/10/2018 MX60-20.5 / [id number] / [id number] Percutaneous Extension 2201bun - [id number] Implanted:Qty: 1 on 08/05/2020 by Disha Melendez MD [place] [facility] [place]/A: Buttocks [employer] 03/30/2022 9009 / / Kit Tined Lead - [id number] Implanted:Qty: 1 on 08/05/2020 by Disha Melendez MD [place] [facility] [place]/A: Buttocks [employer] 07/16/2022 1201 / / Neurostimulator - [id number] Implanted:Qty: 1 on 08/15/2020 by Disha Melendez MD at [place] [facility] Right: Back [employer] 11/26/2021 1101 [...] and were consensually agreed upon. Care Teams General Maintenance Mechanic Relationship Specialty Start Date End Date Candice Mcnair DO 293 [facility] [address] PCP - General Family Medicine 01/28/24 documented as of this encounter
--- OUTSIDE RECORDS SUMMARY | 2024-05-22 06:12 | External Medical Summary | Summary of Care ---
Author Name Unknown Organization [facility] Address [address] [place] [address] Phone [phone] Care Team Providers Care Milk Route Deliverer Name Role Phone Candice Mcnair DO Primary Care Provider [phone] Reason for Visit * Reason Comments Follow Up Encounter Details Date Type Department Care Team (Late st Contact Info) Description 05/19/2024 3:00 PM EDT Office Visit Family Practice 65 [facility] [address] [place] [address] Candice Mcnair DO [address] [place] [address] Dyslipidemia*; Pancreatic cyst Allergies Active Allergy Reactions Criticality Noted Date [...] 24 Hour (Imdur)Indicatio ns:Coronary artery disease of [place] artery of [place] heart with stable angina pectoris (HCC) Take [...] TIMES DAILY 180 Tablet 3 5 Active Doxycycline Hyclate 100 MG Oral Capsule Take 1 Capsule by mouth in the morning and 1 Capsule before bedtime. Do all this for 10 days. Until gone.. 20 Capsule 5 05/30/19 25 Active Benzonatate 100 MG Oral Capsule Take 1 Capsule by mouth 3 times a day as needed for Cough. 30 Capsule 5 Active documented as of this encounter [...] Opioid dependence, uncomplicated 04/10/[address] [place] co ronary artery without angina pectoris 04/10/2023 [...] disease of n ative artery of [place] heart with stable angina pectoris 08/21/2019 Gastro-esophageal [...] artery disease) 10/31/2011 11/06/2020 [employer] Other*[id number] 10/31/2011 04/17/2016 Overview (10/31/2011): Study Title: Genomic Markers for Patients with Cardiovascular Disease Project # [id number] Coper Hand: Yasemin Timmons MD [phone] [facility] 10/15/2011 01/27/2017 Dyslipidemia, goal to be [...] Sign Reading Time Taken Comments Blood Pressure 138/84 05/19/2024 3:00 PM EDT Pulse 76 05/19/2024 3:00 PM EDT Temperature 37.2 C (99 F) 05/19/2024 3:00 PM EDT Respiratory Rate 16 05/19/2024 3:00 PM EDT Oxygen Saturation 93% 05/19/2024 3:00 PM EDT Inhaled Oxygen Concentration - - Weight - - Height 156 cm (5' 1.42") 05/19/2024 3:00 PM EDT Body Mass Index - - documented in this encounter Progress Notes * Candice Mcnair DO - 05/19/2024 3:01 PM EDT Images from the original note were not included. Subjective Sunita Thomas is a 89 year old female that presents for Follow Up History of Present Illness The patient presents with a severe cold and persistent cough. The patient has been experiencing a severe cold with a persistent cough that has worsened over the past week. She reports significant neck pain radiating to the left side of her head, which she attributes to the coughing. The cough is productive, occasionally bringing up mucus that is difficult to expel. She experiences shortness of breath but does not walk far. No wheezing, runny nose, fever, sweats, or chills are present. Initially, she had a mild sore throat, which has progressively worsened. The cough disrupts her sleep, causing frequent awakenings at night. She experiences significant pain in her head and neck due to the coughing. She denies any issues with her right ear, despite it being full of wax, and does not use Q-tips forcleaning. She is not interested in having her ear flushed out today. Review of Systems Constitutional: Positive for fatigue. Negative for chills, fever and unexpected weight change. HENT: Positive for congestion and sore throat. Respiratory: Positive for cough and shortness of breath (?). Negative for chest tightness and wheezing. Cardiovascular: Negative for chest pain, palpitations and leg swelling. Gastrointestinal: Negative for abdominal pain, constipation, diarrhea, nausea and vomiting. Musculoskeletal: Negative for arthralgias, gait problem and joint swelling. Skin: Negative for color change, pallor and rash. Objective BP 138/84 (BP Site: Left Arm, BP Position: Sitting, BP Cuff Size: Regular) | Pulse 76 | Temp 99 F(37.2 C) (Tympanic) | Resp 16 | Ht 5' 1.42" (1.56 m) | SpO2 93% | BMI 28.94 kg/m | BSA 1.75 m Physical Exam HEENT: Right ear with cerumen impaction. Left ear canal clear. Physical Exam Constitutional: General: She is not in acute distress. Appearance: She is well-developed. HENT: Right Ear: There is impacted cerumen. Left Ear: Tympanic membrane, ear canal and external ear normal. Nose: Comments: +post nasal drip Cardiovascular: Rate and Rhythm: Normal rate and [...] dry. Coloration: Skin is not pale. Findings: No erythema or rash. Neurological: Mental Status: She is alert and oriented to person, place, and time. Results Assessment and Plan Assessment & Plan Viral Upper Respiratory Infection (URI) with cough Worsening cough and neck pain radiating to the head, likely due to a viral URI. No wheezing or significant dyspnea. Lungs clear, indicating mucus is primarily in the upper airway. Afebrile, no chillsor sweats. Neck and head pain likely secondary to coughing. Right ear cerumen impaction without symptoms. Reduced appetite but adequate hydration and normal urination. - Prescribe doxycycline for potential bacterial superinfection, with informed consent regarding gastrointestinal upset and diarrhea. - Advise to spit out mucus to prevent reinfection. - Prescribe Tessalon Perles for cough relief, up to three times daily as needed, especially before bed. - Consider Mucinex if cough persists despite antibiotics. - Advise eating before doxycycline to prevent gastrointestinal upset. - Suggest heating pad or massage for neck and head pain relief. CT scan follow-up Scheduled CT scan, but concerned about lying flat and drinking contrast due to coughing. Scan is non-urgent and can be rescheduled before the next appointment with Dr. Newberry. - Reschedule CT scan to a later date before the appointment with Dr. Newberry on June 10. Follow-up Monitor for symptom improvement or worsening. Importance of symptom monitoring and treatment adjustment discussed. - Nurse to call on to check on her condition and ensure no worsening. (E78.5) Dyslipidemia (primary encounter diagnosis) Plan: Pt will remain on Crestor. (K86.2) Pancreatic cyst Plan: no change on imaging per radiology. Wrap-Up Check-out note: Nurse phone call on I spent a total of 30-39 minutes (exact time 33 mins) on the date of service in preparation, delivery, and documentation of the care provided to Sunita Thomas excluding any time spent in the performance of separately billed services. Text in this note was generated using an [employer] documentation service. I discussed the use of a device to record and summarize our discussion today. All persons present during the encounter consented to its use. documented in this encounter Nursing Notes * Lauren Adams LPN - 05/19/2024 2:59 PM EDT Patient here for follow up visit. Reports headache left side of head, productive cough, pain in abdomen and chest from coughing. documented in this encounter Plan of Treatment Upcoming Encounters Date Type Department Care Team (Late st Contact Info) Description 05/21/2024 11:15 AM EDT Scheduled Telephone Family Practice 65 [facility] [address] [place] [address] College, Nurse [facility] Prac [address] [address] 06/01/2024 11:15 AM EDT Imaging Radiology [facility] 1st [facility] 132 [facility] [place] [phone] 06/10/2024 11:10 AM EDT Office Visit Vascular Surgery, [facility] 132 [facility] [place] [address] Alvarez Newberry MD [address] [place] [address] 06/11/2024 10:40 AM EDT Office Visit Family Practice [address] [place] [address] 293 [place] [address] Anthony Leo DO 293 [place] [address] 06/29/2024 1:30 PM EDT Office Visit Cardiology, [facility] [address] [place] [address] Sumeet Bergeron MD 132 [facility] [place] [address] 10/22/2024 8:45 AM EDT Office Visit Dermatology [facility] 200 [facility] [place] [address] Babatunde Yanes MD 200 [facility] [place] [address] Scheduled Procedures Name Priority Associated Diagnoses Date/Ti me COLONOSCOPY FLEXIBLE PROXIMAL DIAGNOSTIC Recall History of colon polyps Health Maintenance Due Date Last Done Comments Adult Wellness Visit 04/14/2015 04/14/2014 DXA Scan 09/29/2020 09/29/2018, 04/2013, 06/10/2013 CKD PHOS USE SMARTSET [id number] 12/21/2021 12/21/2020 Colonoscopy 12/30/2021 12/30/2018, 12/30/2018 COVID-19 Vaccine (5 - Moderna risk season) 2024 12/13/2023, 11/21/2021, 03/16/2021, Additional history exists Albumin/Creatinine Ratio 09/09/2024 09/10/2023 Depression Screening 09/09/2024 09/10/2023 CKD HGB USE SMARTSET 75242 01/17/202501/17, 01/11/2024, 01/02/2024, Additional history exists DTap/Tdap Vaccines (3 - Td or Tdap) 06/10/2033 06/11/2023, 05/14/2013, 11/19/2003 Pneumococcal Vaccine: 50+ Years Completed 04/16/2014, 07/30/2001 Zoster Vaccines Completed 01/05/2019, 08/09, 08/29/2011 VITAMIN D LEVEL ONCE IN A LIFETIME-USE SMARTSET# [id number] Completed 09/10/2023 Diabetic Eye Exam Discontinued 09/17/2023, [...] this encounter Medical Devices Implanted Type Area Bell Attendant Device Identifier Shelf Expiration Date Model / Serial / Lot Lens 19.0 Mx60 - [id number] Implanted:Qty: 1 on 12/28/2015 by Jorge L Alex MD at OR [facility] Left: Eye [employer] : SURGICAL 02/07/2018 MX60-19.0 / [id number] / [id number] Lens 20.5 Mx60 - [id number] - [id number] Implanted:Qty: 1 on 01/25/2016 by Jorge L Alex MD at OR [facility] [employer]CH [employer] LOM[employer] : SURGICAL 03/10/2018 MX60-20.5 / [id number] / [id number] Percutaneous Extension 2201bun - [id number] Implanted:Qty: 1 on 08/05/2020 by Disha Melendez MD [place] [facility] N/A: Buttocks [employer] 03/30/2022 9009 / / Kit Tined Lead - [id number] Implanted:Qty: 1 on 08/05/2020 by Disha Melendez MD at [place] [facility] N/A: Buttocks [employer] 07/16/2022 1201 / / Neurostimulator - [id number] Implanted:Qty: 1 on 08/15/2020 by Disha Melendez MD at [place] [facility] Right: Back [employer] 11/26/2021 1101 / / documented as of this encounter Visit Diagnoses Diagnosis Dyslipidemia- Primary Other and unspecified hyperlipidemia Pancreatic cyst Cyst and pseudocyst of pancreas documented in this encounter Advance Directives * [...] and were consensually agreed upon. Care Teams Milk Route Deliverer Relationship Specialty Start Date End Date Candice Mcnair DO [address] [place] [address] PCP - General Family Medicine 01/28/24 documented as of this encounter
--- OUTSIDE RECORDS SUMMARY | 2024-05-22 06:12 | External Medical Summary | Summary of Care ---
Author Name Unknown Organization [facility] Address [address] [place] [address] Phone [phone] Care Team Providers Care Tin Container Straightener Name Role Phone Candice Mcnair DO Primary Care Provider [phone] Reason for Visit * Reason Comments Acute Cough Encounter Details Date Type Department Care Team (Latest Contact Info) Description 05/12/2024 4:00 PM EST Office Visit Family Practice [facility] [address] [place] [address] Candice Mcnair DO [address] [place] [address] Viral URI with cough*; Infrarenal abdominal aortic aneurysm (AAA) without rupture (HCC); Atherosclerosis of prairie band coronary artery without angina pectoris, unspecified whether prairie band or transplanted heart; 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); Supraventricular tachycardia (HCC); Paroxysmal VT (HCC); HTN, goal below 130/80; Rheumatoid arthritis, involving unspecified site, unspecified whether rheumatoid factor present (HCC); Opioid dependence, uncomplicated (HCC); Stage 3 chronic kidney disease, unspecified whether stage 3a or 3b CKD (HCC); Immunodeficiency (HCC); Migraine without status migrainosus, not intractable, unspecified migraine type; Collapsed vertebra, not elsewhere classified, thoracic region, initial encounter for fracture (HCC) Allergies Active Allergy Reactions Criticality Noted [...] as of this encounter (statuses as of 05/13/2024) Medications Aspirin 81 MG Tablet Take 1 [...] Active Additional Information Patient not taking.Reported on 03/26/2024 Calcium-Vitamins C & D 500-10-250 MG-MG-UNIT Oral [...] Oral Daily(AM), Takes at bed, Reported on 03/26/2024 Acetaminophen 500 MG Oral Tablet (Tylenol Extra Strength) Take 1 Tablet by mouth at bedtime as needed for Pain, Breakthrough. 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 90 Tablet 3 4 Active Vitamin C 500 MG Oral Capsule Take [...] for Constipation. 60 Capsule 5 4 Active Additional Information Patient not taking.Reported on 03/26/2024 Buprenorphine 15 MCG/HR Transdermal Patch Weekly Place [...] as of this encounter (statuses as of 05/13/2024) Active Problems Problem Noted Date Diagnosed Date Stage 3 chronic kidney disease 05/12/2024 Immunodeficiency 05/12/2024 Migraine without status migrainosus, not intract able 05/12/2024 Collapsed vertebra, not else where classified, thoracic region, initial encounter for fracture 05/12/2024 Asymptomatic bilateral carotid artery stenosis 1 Rheumatoid arthritis with rh eumatoid factor of multiple sites without organ or systems involvement 09/10/2023 Opioid dependence, uncomplicated 04/10/2023 Atherosclerosis of prairie band co ronary artery without angina pectoris 04/10/2023 [...] artery disease of n ative artery of prairie band heart with stable angina pectoris 08/21/2019 Gastro-esophageal [...] as of this encounter (statuses as of 05/13/2024) Resolved Problems Problem Noted Date Diagnosed Date [...] artery disease) 10/31/2011 11/06/2020 [employer] Other*[id number] 10/31/2011 04/17/2016 Overview (10/31/2011): Study Title: Genomic Markers for Patients with Cardiovascular Disease Project # [id number] Outside Sales Advertising Executive: Yasemin Timmons MD [phone] [facility] 10/15/2011 01/27/2017 Dyslipidemia, goal to be determined 02/15/2009 09/26/2013 Overview (02/15/2009): Per Lipid Taxonomy. Other allergic rhinitis 08/08/200103/2019 Overview (08/10/2019): ICD-10 update of inactive term Acute. PURE HYPERCHOLESTEROLEM 10/30/200010/2008 Overview (02/15/2009): Per Lipid Taxonomy. documented as of this encounter (statuses as of 05/13/2024) Immunizations Name Administration Dates Next Due COVID-19 [...] Sign Reading Time Taken Comments Blood Pressure 152/90 05/12/2024 4:21 PM EST Pulse 81 05/12/2024 4:21 PM EST Temperature 36.7 C (98 F) 05/12/2024 4:21 PM EST Respiratory Rate - - Oxygen Saturation 96% 05/12/2024 4:21 PM EST Inhaled Oxygen Concentration - - Weight 70.4 kg (155 lb 4.8 oz) 05/12/2024 4:21 P M EST Height - - Body Mass Index 28.94 02/14/2024 1:36 PM EST documented in this encounter Progress Notes * Candice Mcnair, DO - 05/12/2024 4:25 PM EST Images from the original note were not included. Subjective Sunita Thomas is a 89 year old female that presents for Acute and Cough History of Present Illness Sunita Thomas is an 89 year old female who presents with a dry cough and fatigue. She is accompanied by her daughter. She has been experiencing a dry cough since yesterday, characterized by episodes of coughing jags without sputum production. She is concerned about the worsening of the cough. No runny nose is present, but she has a sore throat and left ear pain that began last night. She has not noticed any fever but did experience back sweating upon waking this morning. No nausea, vomiting, or diarrhea. In addition to the cough, she feels generally unwell with fatigue and a desire to rest. No fever, but she has experienced some night sweats. Her blood pressure was noted to be elevated during the visit, which she attributes to 'white coat syndrome.' She typically does not have her blood pressure checked at [facility], where she resides, as she usually feels well. She visits her daughter every Saturday for activities such as shopping and dining out. Review of Systems Constitutional: Positive for diaphoresis (?) and fatigue. Negative for chills, fever and unexpectedweight change. Respiratory: Positive for cough. Negative for chest tightness, shortness of breath and wheezing. Cardiovascular: Negative for chest pain, palpitations and leg swelling. Gastrointestinal: Negative for abdominal pain, constipation, diarrhea, nausea and vomiting. Musculoskeletal: Negative for arthralgias, gait problem and joint swelling. Skin: Negative for color change, pallor and rash. Objective Vitals: 05/12/24 1621 Temp: 98 F (36.7 C) Pulse: 81 SpO2: 90% BP: 186/101 Physical Exam VITALS: SaO2- 96% CHEST: Lungs clear to auscultation bilaterally. Physical Exam Constitutional: General: She is not in acute distress. Appearance: She is well-developed. HENT: Nose: Congestion present. No rhinorrhea. Mouth/Throat: Mouth: Mucous membranes are moist. Pharynx: Oropharynx is clear. No oropharyngeal exudate. Cardiovascular: Rate and Rhythm: Normal rate and [...] and oriented to person, place, and time. I have reviewed the following results: Results Procedure: Nasopharyngeal Swab Description: A nasopharyngeal swab was performed. Informed Consent: The patient was informed about the procedure, including the risks, benefits, and alternatives, and consented to it. The patient was counseled about the necessity of the test despiteprevious vaccinations and recent tests, and agreed to proceed. Assessment and Plan Assessment & Plan Acute Cough New onset dry cough with associated fatigue and mild sore throat. No fever, nausea, vomiting, or diarrhea. Lungs clear on auscultation. -Obtain swab for COVID and flu testing. -pulse ox ok. Likely viral Hypertension Elevated blood pressure noted during visit, patient attributes to white coat syndrome. No regular blood pressure checks at home. -Recheck blood pressure NV in 2 weeks General Health Maintenance -Continue current vaccination schedule (COVID, RSV, and flu vaccines up to date). (J06.9) Viral URI with cough (primary encounter diagnosis) Plan: INFLUENZA A/B RSV SARS-COV2,PCR, INFLUENZA A/B RSV SARS-COV2,PCR As above. (I71.43) Infrarenal abdominal aortic aneurysm (AAA) without rupture (HCC) Plan: CREATININE Pt will complete CT. Follows with vascular. 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 (I10) HTN, goal below 130/80 Plan: CREATININE BP controlled. No change. (M06.9) Rheumatoid arthritis, involving unspecified site, unspecified whether rheumatoid factor present (HCC) Plan: pt follows with rheumatology. Remains on Xeljanz. (F11.20) Opioid dependence, uncomplicated ([facility]) Plan: [facility]. Remain on Butrans. (N18.30) Stage 3 chronic kidney disease, unspecified whether stage 3a or 3b CKD ([facility]) Plan: Monitor renal function. (D84.9) Immunodeficiency ([facility]) Plan: pt on Xeljanz and with RA. (G43.909) Migraine without status migrainosus, not intractable, unspecified migraine type Plan: No issues presently. (M48.54XA) Collapsed vertebra, not elsewhere classified, thoracic region, initial encounter for fracture ([facility]) Plan: follows with pain clinic. Wrap-Up Follow-up: as scheduled, [place] in 2 weeks Time: I spent a total of 30-39 minutes (exact time 33 mins) on the date of service in preparation, delivery, and documentation of the care provided to Sunita Thomas excluding any time spent in the performance of separately billed services. Text in this note was generated using an [employer] documentation service. I discussed the use of a device to record and summarize our discussion today. All persons present during the encounter consented to its use. documented in this encounter Nursing Notes * Reshma Yanez RT (R) - 05/12/2024 4:22 PM EST Chief Complaint Patient presents with Acute Cough documented in this encounter Plan of Treatment Upcoming Encounters Date Type Department Care Team (Late st Contact Info) Description 05/20/2024 11:00 AM EDT Imaging Radiology [facility] [address] [place] [address] 06/01/2024 2:20 PM EDT Office Visit Family Practice [address] [place] [address] Candice Mcnair DO [address] [place] [address] 06/10/2024 11:10 AM EDT Office Visit Vascular Surgery, [facility] [address] [facility] [place] [address] Alvarez Newberry MD [address] [place] [address] 06/29/2024 1:30 PM EDT Office Visit Cardiology, [facility] [address] [facility] [place] [address] Sumeet Bergeron MD [address] [place] [address] 10/22/2024 8:45 AM EDT Office Visit Dermatology [facility] [address] [place] [address] Babatunde Yanes MD [address] [place] [address] Pending Results Name Type Priority Associated Diagnoses Date /Time INFLUENZA A/B RSV SARS-COV2,PCR Lab Routine Viral URI with cough 05/12/2024 4:50 PM EST Scheduled Orders Name Type Priority Associated Diagnoses Orde r Schedule INFLUENZA A/B RSV SARS-COV2,PCR Lab Routine Viral URI with cough Expected: 05/12/2024 (Approximate), Expires: 05/12/2025 Scheduled Procedures Name Priority Associated Diagnoses Date/Ti me COLONOSCOPY FLEXIBLE PROXIMAL DIAGNOSTIC Recall History of colon polyps Health Maintenance Due Date Last Done Comments Adult Wellness Visit 04/14/2015 04/14/2014 DXA Scan 09/29/2020 09/29/2018, 04/2013, 06/10/2013 CKD PHOS USE SMARTSET [id number] 12/21/2021 12/21/2020 Colonoscopy 12/30/2021 12/30/2018, 12/30/2018 COVID-19 Vaccine (5 - Moderna risk ) 06/12/2024 12/13/2023, 11/21/2021, 03/16/2021, Additional history exists Albumin/Creatinine Ratio 09/09/2024 09/10/2023 Depression Screening 09/09/2024 09/10/2023 CKD HGB USE SMARTSET 31213 01/17/202501/17, 01/11/2024, 01/02/2024, Additional history exists DTap/Tdap Vaccines (3 - Td or Tdap) 06/10/2033 06/11/2023, 05/14/2013, 11/19/2003 Pneumococcal Vaccine: 50+ Years Completed 04/16/2014, 07/30/2001 Zoster Vaccines Completed 01/05/2019, 08/09, 08/29/2011 VITAMIN D LEVEL ONCE IN A LIFETIME-USE SMARTSET# [id number] Completed 09/10/2023 Diabetic Eye Exam Discontinued 09/17/2023, [...] this encounter Medical Devices Implanted Type Area Installment Account Checker Device Identifier Shelf Expiration Date Model / Serial / Lot Lens 19.0 Mx60 - [id number] Implanted:Qty: 1 on 12/28/2015 by Jorge L Alex MD at OR [facility] Left: Eye [employer] : SURGICAL 02/07/2018 MX60-19.0 / [id number] / [id number] Lens 20.5 Mx60 - [id number] - [id number] Implanted:Qty: 1 on 01/25/2016 by Jorge L Alex MD at OR [facility] [employer] : SURGICAL 03/10/2018 MX60-20.5 / [id number] / [id number] Percutaneous Extension 2201bun - [id number] Implanted:Qty: 1 on 08/05/2020 by Disha Melendez MD at OR [facility] N/A: Buttocks [employer] 03/30/2022 9009 / / Kit Tined Lead - [id number] Implanted:Qty: 1 on 08/05/2020 by Disha Melendez MD at OR [facility] N/A: Buttocks [employer] 07/16/2022 1201 / / Neurostimulator - [id number] Implanted:Qty: 1 on 08/15/2020 by Disha Melendez MD at OR [facility] Right: Back [employer] 11/26/2021 1101 / / documented as of this encounter Procedures Procedure Name Priority Date/Time Associated Diagnosis Comments CREATININE Routine 05/12/2024 4:16 PM EST Infrarenal abdominal aortic aneurysm (AAA) without rupture (HCC) 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 Blood Venous blood specimen / Unknown Venipuncture / Unknown 05/12/2024 4:16 PM EST 05/12/2024 4:16 PM EST Luis Daniel Cotton ELECTRICAL AND INSTRUMENT TECHNICIAN LAB BLOOD ORDERABLES F inal Result LAB[facility]ATORY [facility] [address] [place] [address] documented in this encounter Visit Diagnoses Diagnosis Viral URI with cough- Primary Acute upper respiratory infections of unspecified site Infrarenal abdominal aortic aneurysm (AAA) without rupture (HCC) Atherosclerosis of prairie band coronary artery without angina pectoris, unspecified whether prairie band or transplanted heart 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) Supraventricular tachycardia (HCC) Other specified cardiac dysrhythmias Paroxysmal VT (HCC) Paroxysmal ventricular tachycardia HTN, goal below 130/80 Unspecified essential hypertension Rheumatoid arthritis, involving unspecified site, unspecified whether rheumatoid factor present (HCC) Opioid dependence, uncomplicated (HCC) Stage 3 chronic kidney disease, unspecified whether stage 3a or 3b CKD (HCC) Immunodeficiency (HCC) Unspecified immunity deficiency Migraine without status migrainosus, not intractable, unspecified migraine type Collapsed vertebra, not elsewhere classified, thoracic region, initial encounter for fracture (HCC) documented in this encounter Advance Directives [...] and were consensually agreed upon. Care Teams Tin Container Straightener Relationship Specialty Start Date End Date Candice Mcnair DO [address] [facility] [place] [address] PCP - General Family Medicine 01/28/24 documented as of this encounter
--- OUTSIDE RECORDS SUMMARY | 2024-05-22 06:12 | External Medical Summary | Summary of Care ---
Author Name Unknown Organization [facility] Address [address] [place] [address] Phone [phone] Care Team Providers Care Supervisor Body Assembly Name Role Phone Candice Mcnair DO Primary Care Provider [phone] Reason for Visit * Reason Comments Acute Cough Encounter Details Date Type Department Care Team (Latest Contact Info) Description 05/12/2024 4:00 PM EST Office Visit Family Practice 65 [facility] [address] [place] [address] Candice Mcnair DO [address] [place] [address] Viral URI with cough*; Infrarenal abdominal aortic aneurysm (AAA) without rupture (HCC); Atherosclerosis of tribe coronary artery without angina pectoris, unspecified whether tribe or transplanted heart; 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); Supraventricular [...] 24 Hour (Imdur)Indicatio ns: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) [...] 09/10/2023 Opioid dependence, uncomplicated 04/10/2023 Atherosclerosis of tribe co ronary artery without angina pectoris [...] artery disease of n ative artery of tribe heart with stable angina pectoris 08/21/2019 [...] artery disease) 10/31/2011 11/06/2020 [employer] Other*[id number] 10/31/2011 04/17/2016 Overview (10/31/2011): Study Title: Genomic Markers for Patients with Cardiovascular Disease Project # [id number] Coal Picker: Yasemin Timmons MD [phone] [facility] 10/15/2011 01/27/2017 Dyslipidemia, goal to be determined [...] (Prevnar) 04/16/2014 Pneumococcal Polysaccharide PPV23 (Pneumovax) 07/30/2001 RSV Vac., Recomb, Adjuvant, PF,0.5 Ml (Arexvy) [...] documented in this encounter Progress Notes * Reshma Yanez, (R) - 05/13/2024 7:38 AM EST One gold tube drawn from left arm, bandage applied. 05/12/24 @ 1610 hours HIC R.T.(R) * Candice Mcnair DO - 05/12/2024 4:25 PM EST Images [...] not have her blood pressure checked at [facility], where she resides, as she usually feels [...] CT. Follows with vascular. 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 (I10) HTN, goal below 130/80 Plan: CREATININE BP controlled. No change. (M06.9) Rheumatoid arthritis, involving unspecified site, unspecified whether rheumatoid factor present (HCC) Plan: pt follows with rheumatology. Remains on Xeljanz. (F11.20) Opioid dependence, uncomplicated (HCC) Plan: Follows with [facility]. Remain on Butrans. (N18.30) Stage 3 chronic kidney disease, unspecified whether stage 3a or 3b CKD (HCC) Plan: Monitor renal function. (D84.9) Immunodeficiency (HCC) Plan: pt on Xeljanz and with RA. (G43.909) Migraine without status migrainosus, not intractable, unspecified migraine type Plan: No issues presently. (M48.54XA) Collapsed vertebra, not elsewhere classified, thoracic region, initial encounter for fracture ([facility]) Plan: follows with pain clinic. Wrap-Up Follow-up: as scheduled, CHRISTA in 2 weeks Time: I spent a total of 30-39 minutes (exact time 33 mins) on the date of service in preparation, delivery, and documentation of the care provided to Sunita Hilary Thomas excluding any time spent in the performance of separately billed services. Text in this note was generated using an ambient documentation service. I discussed the use of [...] Description 05/20/2024 11:00 AM EDT Imaging Radiology [facility] 1st [facility] [address] [facility] [phone] 06/01/2024 2:20 PM EDT Office Visit Family Practice [address] [place] [address] 293 [place] [address] Candice Mcnair DO [address] [place] [address] 06/10/2024 11:10 AM EDT Office Visit Vascular Surgery, [facility] [place] [address] Alvarez Newberry MD [address] [place] [address] 06/29/2024 1:30 PM EDT Office Visit Cardiology, [facility] 132 [facility] [place] [address] Sumeet Bergeron MD [address] [facility] [place] [address] 10/22/2024 8:45 AM EDT Office Visit Dermatology [facility] [address] [place] [address] Babatunde Yanes MD [address] [place] [address] Scheduled Procedures Name Priority Associated Diagnoses Date/Ti me COLONOSCOPY FLEXIBLE PROXIMAL DIAGNOSTIC Recall History of colon polyps Health Maintenance Due Date Last Done Comments Adult Wellness Visit 04/14/2015 04/14/2014 DXA Scan 09/29/2020 09/29/2018, 04/2013, 06/10/2013 CKD PHOS USE SMARTSET 06476 12/21/2021 12/21/2020 Colonoscopy 12/30/2021 12/30/2018, 12/30/2018 COVID-19 Vaccine (5 - Moderna risk season) 2024 12/13/2023, 11/21/2021, 03/16/2021, Additional history exists Albumin/Creatinine Ratio 09/09/2024 09/10/2023 Depression Screening 09/09/2024 09/10/2023 CKD HGB USE SMARTSET 65855 01/17/202501/17, 01/11/2024, 01/02/2024, Additional history exists DTap/Tdap Vaccines (3 - Td or Tdap) 06/10/2033 06/11/2023, 05/14/2013, 11/19/2003 Pneumococcal Vaccine: 50+ Years Completed 04/16/2014, 07/30/2001 Zoster Vaccines Completed 01/05/2019, 08/09, 08/29/2011 VITAMIN D LEVEL ONCE IN A LIFETIME-USE SMARTSET# [id number] Completed 09/10/2023 Diabetic Eye Exam Discontinued 09/17/2023, [...] this encounter Medical Devices Implanted Type Area Labor/Excavator Device Identifier Shelf Expiration Date Model / Serial / Lot Lens 19.0 Mx60 - [id number] Implanted:Qty: 1 on 12/28/2015 by Jorge L Alex MD at OR [facility] Left: Eye [employer] : SURGICAL 02/07/2018 MX60-19.0 / [id number] / [id number] Lens 20.5 Mx60 - [id number] - [id number] Implanted:Qty: 1 on 01/25/2016 by Jorge L Alex MD at OR [facility] BAUSCH [employer] LOMB : SURGICAL 03/10/2018 MX60-20.5 / [id number] / [id number] Percutaneous Extension 2201bun - [id number] Implanted:Qty: 1 on 08/05/2020 by Disha Melendez MD [place] [facility] N/A: Buttocks [employer] 03/30/2022 9009 / / Kit Tined Lead - [id number] Implanted:Qty: 1 on 08/05/2020 by Disha Melendez MD [place] [facility] N/A: Buttocks [employer] 07/16/2022 1201 / / Neurostimulator - [id number] Implanted:Qty: 1 on 08/15/2020 by iDsha Melendez MD at [place] [facility] Right: Back [employer] 11/26/2021 1101 / / documented as of this encounter Procedures Procedure Name Priority Date/Time Associated Diagnosis Comments INFLUENZA A/B RSV SARS-COV2,PCR Routine 05/12/2024 4:50 PM EST Viral URI with cough CREATININE Routine 05/12/2024 4:16 PM EST Infrarenal abdominal aortic aneurysm (AAA) without rupture (HCC) 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 This automated test was developed and its performance characteristics determined by [facility]. It has not been cleared or approved by the U.S. Food and Drug Administration (FDA). FDA does not require this test to go thru premarket FDA review. This test is used for clinical purposes. It should not be regarded as investigational or for research. This laboratory is certified under the Clinical Laboratory Improvement Amendments (CLIA) as qualified to perform high complexity clinical laboratory testing. This test is a nucleic acid amplification test (NAAT), a reverse transcriptase polymerase chain reaction (RT-PCR) test, or a Centers for Disease Control- acceptable equivalent. The test is performed in a high complexity Clinical Laboratory Improvement Amendments-(CLIA) certified laboratory. The test is acceptable for SARS-CoV-2 diagnosis, surveillance, and travel within the [place] and to most countries. Please check with local testing authorities about requirements before travel. The validation of bronchial specimens, tracheal aspirates, and sputum for this assay was developed and performance characteristics determined by [facility]. The validation of alternate specimen types has not been cleared or approved by the U.S. Food and Drug Administration (FDA). It has been determined that such clearance or approval is not necessary. Influenza A PCR Result Negative Negative 05/13/2024 6:45 AM [facility] Comment:No Influenza A RNA d etected by PCR (amplified probe) Influenza B PCR Result Negative Negative 05/13/2024 6:45 AM [facility] Comment:No Influenza B RNA d etected by PCR (amplified probe) RSV PCR Result Negative Negative 05/13/2024 6:45 AM [facility] Comment:No Respiratory Syncy tial Virus RNA detected by PCR (amplified probe) Upper Respiratory Nasopharyngeal swab / Unknown Non-blood Collection / Unknown 05/12/2024 4:50 PM EST 05/12/2024 4:50 PM EST Candice Mcnair DO LAB MICRO - GENERAL ORDERABL ES Final Result [facility] [address] [place] [address] * CREATININE (05/12/2024 4:16 PM EST) CREATININE 0.9 0.5 - 1.0 mg/dL 05/12/2024 10:54 PM EST [facility] EGFR 65 >=60 mL/min 05/12/2024 10:54 PM EST [facility] Comment:eGFR is calculated b ased on the CKD-EPI 2020 equation. 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 Care Teams Supervisor Body Assembly Relationship Specialty Start Date End Date Candice Mcnair DO [address] [place] [address] PCP - General Family Medicine 01/28/24 documented as of this encounter
--- OUTSIDE RECORDS SUMMARY | 2024-05-22 06:13 | External Medical Summary | Summary of Care ---
Author Name Unknown Organization [facility] Address [address] [place] [address] Phone [phone] Care Team Providers Care Assembling Machine Operator Name Role Phone Candice Mcnair DO Primary Care Provider [phone] Reason for Visit * Reason Onset Date Comments Appointment 05/12/2024 Encounter Details Date Type Department Care Team (Late st Contact Info) Description 05/12/2024 Telephone Family Practice 65 [facility] [address] [place] [phone] Candice Mcnair DO [address] [place] [address] Appointment Allergies Active Allergy Reactions Criticality Noted [...] as of this encounter (statuses as of 05/12/2024) Medications Aspirin 81 MG Tablet Take 1 [...] 24 Hour (Imdur)Indicatio ns:Coronary artery disease of [place] artery of [place] heart with stable angina pectoris (HCC) Take [...] as of this encounter (statuses as of 05/12/2024) Active Problems Problem Noted Date Diagnosed Date Stage 3 chronic kidney disease 05/12/2024 Immunodeficiency 05/12/2024 Migraine without status migrainosus, not intract able 05/12/2024 Collapsed vertebra, not else where classified, thoracic region, initial encounter for fracture 05/12/2024 Asymptomatic bilateral carotid artery stenosis 1 Rheumatoid arthritis with rh eumatoid factor of multiple sites without organ or systems involvement 09/10/2023 Opioid dependence, uncomplicated 04/10/2023 Atherosclerosis of [place] co ronary artery without angina pectoris 04/10/2023 [...] artery disease of n ative artery of [place] heart with stable angina pectoris 08/21/2019 Gastro-esophageal [...] as of this encounter (statuses as of 05/12/2024) Resolved Problems Problem Noted Date Diagnosed Date [...] artery disease) 10/31/2011 11/06/2020 [employer] Other*[id number] 10/31/2011 04/17/2016 Overview (10/31/2011): Study Title: Genomic Markers for Patients with Cardiovascular Disease Project # [id number] Engineering Associate: Yasemin Timmons MD [phone] Dyspnea 10/15/2011 01/27/2017 Dyslipidemia, goal to be determined 02/15/2009 09/26/2013 Overview (02/15/2009): Per Lipid Taxonomy. Other allergic rhinitis 08/08/200103/2019 Overview (08/10/2019): ICD-10 update of inactive term Acute. PURE HYPERCHOLESTEROLEM 10/30/200010/2008 Overview (02/15/2009): Per Lipid Taxonomy. documented as of this encounter (statuses as of 05/12/2024) Immunizations Name Administration Dates Next Due COVID-19 [...] No 04/09/2023 Does the household have a [facility] source of income? (Household - for ages [...] Telephone Encounter - Candice Mcnair DO - 05/12/2024 2:19 PM EST Noted. * Telephone Encounter - Maude Sawant RN - 05/12/2024 1:34 PM EST Call to pt-states she started yesterday with a cough-dry cough. /she is having some wheezing and chest congestion. She denies fever, SOB, chest pain. She took Cara [place] Plus last PM but it didn't help. States her daughter is able to her wheezing and is why she wanted her to be seen. Pt was goingto come for lab work anyhow today-needs done before her CT scan. Pt's appt is at 4 PM-requested pt to come 15-30 min before appt to have blood work drawn prior to her appt -verbally understanding. * Telephone Encounter - Sandra Moran OSA - 05/12/2024 12:53 PM EST Cough COUGH: Yes How long has your cough lasted? since yesterday Additional Comment(s) Additional Comments: Acute appt scheduled for today at 4pm Patient calling for cough which started yesterday and getting worse with some wheezing and congestion. Patient Request Patient Requesting: Appointment * Telephone Encounter - Sandra Moran OSA - 05/12/2024 12:46 PM EST Acute appt scheduled for today at 4pm Patient calling for cough which started yesterday and getting worse with some wheezing and congestion. documented in this encounter Plan of Treatment Upcoming Encounters Date Type Department Care Team (Late st Contact Info) Description 05/20/2024 11:00 AM EDT Imaging Radiology [facility] 1st [facility] 132 [facility] [place] [phone] 06/01/2024 2:20 PM EDT Office Visit Family Practice 65 [facility], [place] [address] [place] [address] Candice Mcnair DO 293 [facility], [place] [address] 06/10/2024 11:10 AM EDT Office Visit Vascular Surgery, [facility] 132 [facility] [place] [address] Alvarez Newberry MD [address] [place] [address] 06/29/2024 1:30 PM EDT Office Visit Cardiology, [facility] [address] [place] [address] Sumeet Bergeron MD [address] [place] [address] 10/22/2024 8:45 AM EDT Office Visit Dermatology [facility] 200 [facility] [place] [address] Babatunde Yanes MD 200 [facility] [place] [address] Scheduled Procedures Name Priority Associated Diagnoses Date/Ti me COLONOSCOPY FLEXIBLE PROXIMAL DIAGNOSTIC Recall History of colon polyps Health Maintenance Due Date Last Done Comments Adult Wellness Visit 04/14/2015 04/14/2014 DXA Scan 09/29/2020 09/29/2018, 04/2013, 06/10/2013 CKD PHOS USE SMARTSET 93791 12/21/2021 12/21/2020 Colonoscopy 12/30/2021 12/30/2018, 12/30/2018 COVID-19 Vaccine (5 - Moderna risk 2023- season) 2024 12/13/2023, 11/21/2021, 03/16/2021, Additional history exists Albumin/Creatinine Ratio 09/09/2024 09/10/2023 Depression Screening 09/09/2024 09/10/2023 CKD HGB USE SMARTSET 27927 01/17/202501/17, 01/11/2024, 01/02/2024, Additional history exists DTap/Tdap Vaccines (3 - Td or Tdap) 06/10/2033 06/11/2023, 05/14/2013, 11/19/2003 Pneumococcal Vaccine: 50+ Years Completed 04/16/2014, 07/30/2001 Zoster Vaccines Completed 01/05/2019, 08/09, 08/29/2011 VITAMIN D LEVEL ONCE IN A LIFETIME-USE SMARTSET# 23964 Completed 09/10/2023 Diabetic Eye Exam Discontinued 09/17/2023, [...] this encounter Medical Devices Implanted Type Area Facing Slitter Device Identifier Shelf Expiration Date Model / Serial / Lot Lens 19.0 Mx60 - [id number] Implanted:Qty: 1 on 12/28/2015 by Jorge L Alex MD at OR [facility] Left: Eye [employer] : SURGICAL 02/07/2018 MX60-19.0 / [id number] / [id number] Lens 20.5 Mx60 - [id number] - [id number] Implanted:Qty: 1 on 01/25/2016 by Jorge L Alex MD at OR [facility] [employer]CH [employer] LOMB : SURGICAL 03/10/2018 MX60-20.5 / [id number] / [id number] Percutaneous Extension 2201bun - [id number] Implanted:Qty: 1 on 08/05/2020 by Disha Melendez MD at OR [facility] N/A: Buttocks [employer] 03/30/2022 9009 / / Kit Tined Lead - [id number] Implanted:Qty: 1 on 08/05/2020 by Disha Melendez MD at OR [facility] N/A: Buttocks [employer] 07/16/2022 1201 / / Neurostimulator - [id number] Implanted:Qty: 1 on 08/15/2020 by Disha Melendez MD at OR [facility] Right: Back [employer] 11/26/2021 1101 [...] and were consensually agreed upon. Care Teams Assembling Machine Operator Relationship Specialty Start Date End Date Candice Mcnair DO [address] [place] [address] PCP - General Family Medicine 01/28/24 documented as of this encounter
--- OUTSIDE RECORDS SUMMARY | 2024-05-22 06:13 | External Medical Summary ---
Author Name Unknown Address Unknown Organization K01:[facility] [place] [facility] [address] [place] [address] Laboratory Report Ordering Provider Test Date Status TEMO BRIZUELA 05/12/2024 16:16:12 Final Observation Date Value Abnormality Reference (Units ) Status Creatinine 05/12/2024 16:16:12 0.9 0.5-1.0 (mg/dL) Final Glomerular filtration rate/1.73 sq M.predicted [Volume Rate/Area] in Serum, Plasma or Blood by Creatinine-based formula (CKD-EPI) 05/12/2024 16:16:12 65 >=60 (mL/min) Final eGFR is calculated based on the CKD-EPI 2020 equation. Performing Location [facility] [place] [address] [place] [address]
--- OUTSIDE RECORDS SUMMARY | 2024-05-22 06:13 | External Medical Summary | Summary of Care ---
Author Name Unknown Organization [facility] Address [address] [place] [address] Phone [phone] Care Team Providers Care Timber Estimator Name Role Phone Candice Mcnair Primary Care Provider + [phone] Reason for Visit * Reason Onset Date Comments Order Request 05/11/[address] Scan- 05/20 Encounter Details Date Type Department Care Team (Late st Contact Info) Description 05/11/2024 Telephone Rad[address] [place] [address] Joseline Alva, RT (R) Order Request (Creat needed for CT Scan- 3... Allergies Active Allergy Reactions Criticality Noted Date [...] as of this encounter (statuses as of 05/11/2024) Medications Aspirin 81 MG Tablet Take 1 [...] 24 Hour (Imdur)Indicatio ns:Coronary artery disease of choctaw artery of choctaw heart with stable angina pectoris (HCC) Take [...] as of this encounter (statuses as of 05/11/2024) Active Problems Problem Noted Date Diagnosed Date Asymptomatic bilateral carotid artery stenosis 1 Rheumatoid arthritis with rh eumatoid factor of multiple sites without organ or systems involvement 09/10/2023 Opioid dependence, uncomplicated 04/10/2023 Atherosclerosis of choctaw co ronary artery without angina pectoris 04/10/2023 [...] artery disease of n ative artery of choctaw heart with stable angina pectoris 08/21/2019 Gastro-esophageal [...] as of this encounter (statuses as of 05/11/2024) Resolved Problems Problem Noted Date Diagnosed Date [...] artery disease) 10/31/2011 11/06/2020 [employer] Other*[id number] 10/31/2011 04/17/2016 Overview (10/31/2011): Study Title: Genomic Markers for Patients with Cardiovascular Disease Project # [id number] Chemical Recovery Operator: Yasemin Timmons MD [phone] Dyspnea 10/15/2011 01/27/2017 Dyslipidemia, goal to be determined 02/15/2009 09/26/2013 Overview (02/15/2009): Per Lipid Taxonomy. Other allergic rhinitis 08/08/200103/2019 Overview (08/10/2019): ICD-10 update of inactive term Acute. PURE HYPERCHOLESTEROLEM 10/30/200010/2008 Overview (02/15/2009): Per Lipid Taxonomy. documented as of this encounter (statuses as of 05/11/2024) Immunizations Name Administration Dates Next Due COVID-19 [...] No 04/09/2023 Does the household have a [facility] source of income? (Household - for ages [...] encounter Miscellaneous Notes * Telephone Encounter - Mayra Laguna LPN - 05/11/2024 10:23 AM EST Attempted to contact patient to make her aware that she needed to go for blood work a couple days piror to ct [facility]. Left a detailed message with return phone number. Mayra Laguna LPN 05/11/2024 10:24 AM * Telephone Encounter - Luis Daniel Cotton CRNP - 05/11/2024 10:07 AM EST Mayra, I placed order. Can you ask her to have blood work? * Telephone Encounter - Joseline Alva RT (R) - 05/11/2024 9:43 AM EST Pt is on for a CT scan on 05/20. Please order a Regular Creat and notify pt this must be drawn before 05/20. Joseline Jimenez GW documented in this encounter Plan of Treatment Upcoming Encounters Date Type Department Care Team (Late st Contact Info) Description 05/20/2024 11:00 AM EDT Imaging Radiology [facility] 1st [facility] [phone] 06/01/2024 2:20 PM EDT Office Visit Family Practice [address] [place] [address] [address] [place] [address] Candice Mcnair DO [address] [place] [address] 06/10/2024 11:10 AM EDT Office Visit Vascular Surgery, [facility] 132 [place] [address] Alvarez Newberry MD [address] [place] [address] 06/29/2024 1:30 PM EDT Office Visit Cardiology, [facility] 132 [facility] [place] [address] Sumeet Bergeron MD 132 [facility] [place] [address] 10/22/2024 8:45 AM EDT Office Visit Dermatology [facility] [place] [place] [address] Babatunde Yanes MD 200 [place] [address] Scheduled Orders Name Type Priority Associated Diagnoses Orde r Schedule CREATININE Lab Routine Infrarenal abdominal aortic aneurysm (AAA) without rupture (HCC) Coronary artery disease of choctaw artery of choctaw heart with stable angina pectoris (HCC) HTN, goal below 130/80 Expected: 05/11/2024, Expires: 05/11/2025 Scheduled Procedures Name Priority Associated Diagnoses Date/Ti me COLONOSCOPY FLEXIBLE PROXIMAL DIAGNOSTIC Recall History of colon polyps Health Maintenance Due Date Last Done Comments Adult Wellness Visit 04/14/2015 04/14/2014 DXA Scan 09/29/2020 09/29/2018, 04/2013, 06/10/2013 CKD PHOS USE SMARTSET 57273 12/21/2021 12/21/2020 Colonoscopy 12/30/2021 12/30/2018, 12/30/2018 COVID-19 Vaccine (5 - Moderna risk season) 2024 12/13/2023, 11/21/2021, 03/16/2021, Additional history exists Albumin/Creatinine Ratio 09/09/2024 09/10/2023 Depression Screening 09/09/2024 09/10/2023 CKD HGB USE SMARTSET 91150 01/17/202501/17, 01/11/2024, 01/02/2024, Additional history exists DTap/Tdap Vaccines (3 - Td or Tdap) 06/10/2033 06/11/2023, 05/14/2013, 11/19/2003 Pneumococcal Vaccine: 50+ Years Completed 04/16/2014, 07/30/2001 Zoster Vaccines Completed 01/05/2019, 08/09, 08/29/2011 VITAMIN D LEVEL ONCE IN A LIFETIME-USE SMARTSET# [id number] Completed 09/10/2023 Diabetic Eye Exam Discontinued 09/17/2023, [...] this encounter Medical Devices Implanted Type Area Supervisory Clerk Device Identifier Shelf Expiration Date Model / Serial / Lot Lens 19.0 Mx60 - [id number] Implanted:Qty: 1 on 12/28/2015 by Jorge L Alex MD at OR [facility] Left: Eye [employer] : SURGICAL 02/07/2018 MX60-19.0 / [id number] / [id number] Lens 20.5 Mx60 - [id number] - [id number] Implanted:Qty: 1 on 01/25/2016 by Jorge L Alex MD at OR [facility] [employer]OMB : SURGICAL 03/10/2018 MX60-20.5 / [id number] / [id number] Percutaneous Extension 2201bun - [id number] Implanted:Qty: 1 on 08/05/2020 by Disha Melendez MD at [place] [facility] [place] N/A: Buttocks [employer] 03/30/2022 9009 / / Kit Tined Lead - [id number] Implanted:Qty: 1 on 08/05/2020 by Disha Melendez MD at [place] [facility] [place] N/A: Buttocks [employer] 07/16/2022 1201 / / Neurostimulator - [id number] Implanted:Qty: 1 on 08/15/2020 by Disha Melendez MD at [place] [facility] [place] Right: Back [employer] 11/26/2021 1101 / / documented as of this encounter Visit Diagnoses Diagnosis Infrarenal abdominal aortic aneurysm (AAA) without rupture (HCC)- Primary Coronary artery disease of choctaw artery of choctaw heart with stable angina pectoris (HCC) HTN, goal below 130/80 Unspecified essential hypertension documented in this encounter Advance Directives * [...] and were consensually agreed upon. Care Teams Timber Estimator Relationship Specialty Start Date End Date Candice Mcnair DO [address] [place] [address] PCP - General Family Medicine 01/28/24 documented as of this encounter
--- OUTSIDE RECORDS SUMMARY | 2024-05-22 06:13 | External Medical Summary | Summary of Care ---
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) Take [...] 09/10/2023 Opioid dependence, uncomplicated 04/10/2023 Atherosclerosis of torres martinez co ronary artery without angina pectoris 04/10/2023 [...] artery disease of n ative artery of torres martinez heart with stable angina pectoris 08/21/2019 Gastro-esophageal [...] artery disease) 10/31/2011 11/06/2020 [employer] Other*[id number] 10/31/2011 04/17/2016 Overview (10/31/2011): Study Title: Genomic Markers for Patients with Cardiovascular Disease Project # [id number] Personnel Counselor: Yasemin Timmons MD [phone] Dyspnea 10/15/2011 01/27/2017 Dyslipidemia, goal to be [...] No 04/09/2023 Does the household have a [facility] source of income? (Household - for ages [...] days piror to ct [facility]. Left a detailed message with return [...] Description 05/20/2024 11:00 AM EDT Imaging Radiology [facility] 1st [facility] [address] [facility] [phone] 06/01/2024 2:20 PM EDT Office Visit Family Practice [address] [place] [address] [address] [place] [address] Candice Mcnair DO [address] [place] [address] 06/10/2024 11:10 AM EDT Office Visit Vascular Surgery, [facility] 132 [facility] [place] [address] Alvarez Newberry MD [address] [place] [address] 06/29/2024 1:30 PM EDT Office Visit Cardiology, [facility] 132 [facility] [place] [address] Sumeet Bergeron MD 132 [facility] [place] [address] 10/22/2024 8:45 AM EDT Office Visit Dermatology [facility] 200 [facility] [place] [address] Babatunde Yanes MD 200 [place] [address] Scheduled Orders Name Type Priority Associated Diagnoses Orde r Schedule CREATININE Lab Routine Infrarenal abdominal aortic aneurysm (AAA) without rupture (HCC) 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) HTN, goal below 130/80 Expected: 05/11/2024, Expires: 05/11/2025 Scheduled Procedures Name Priority Associated Diagnoses Date/Ti me COLONOSCOPY FLEXIBLE PROXIMAL DIAGNOSTIC Recall History of colon polyps Health Maintenance Due Date Last Done Comments Adult Wellness Visit 04/14/2015 04/14/2014 DXA Scan 09/29/2020 09/29/2018, 04/2013, 06/10/2013 CKD PHOS USE SMARTSET 71048 12/21/2021 12/21/2020 Colonoscopy 12/30/2021 12/30/2018, 12/30/2018 COVID-19 Vaccine (5 - Moderna risk season) 2024 12/13/2023, 11/21/2021, 03/16/2021, Additional history exists Albumin/Creatinine Ratio 09/09/2024 09/10/2023 Depression Screening 09/09/2024 09/10/2023 CKD HGB USE SMARTSET 75229 01/17/202501/17, 01/11/2024, 01/02/2024, Additional history exists DTap/Tdap Vaccines (3 - Td or Tdap) 06/10/2033 06/11/2023, 05/14/2013, 11/19/2003 Pneumococcal Vaccine: 50+ Years Completed 04/16/2014, 07/30/2001 Zoster Vaccines Completed 01/05/2019, 08/09, 08/29/2011 VITAMIN D LEVEL ONCE IN A LIFETIME-USE SMARTSET# [id number] Completed 09/10/2023 Diabetic Eye Exam Discontinued 09/17/2023, [...] this encounter Medical Devices Implanted Type Area Admissions Advisor Device Identifier Shelf Expiration Date Model / Serial / Lot Lens 19.0 Mx60 - [id number] Implanted:Qty: 1 on 12/28/2015 by Jorge L Alex MD at OR [facility] Left: Eye [employer] : SURGICAL 02/07/2018 MX60-19.0 / [id number] / [id number] Lens 20.5 Mx60 - [id number] - [id number] Implanted:Qty: 1 on 01/25/2016 by Jorge L Alex MD at OR [facility] [employer]OM[employer] : SURGICAL 03/10/2018 MX60-20.5 / [id number] / [id number] Percutaneous Extension 2201bun - [id number] Implanted:Qty: 1 on 08/05/2020 by Disha Melendez MD at OR [facility] N/A: Buttocks [employer] 03/30/2022 9009 / / Kit Tined Lead - [id number] Implanted:Qty: 1 on 08/05/2020 by Disha Melendez MD at OR [facility] N/A: Buttocks [employer] 07/16/2022 1201 / / Neurostimulator - [id number] Implanted:Qty: 1 on 08/15/2020 by Disha Melendez MD at OR [facility] Right: Back [employer] 11/26/2021 1101 / / documented as of this encounter Visit Diagnoses Diagnosis Infrarenal abdominal aortic aneurysm (AAA) without rupture (HCC)- Primary 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 Care Teams Stone Unloader Relationship Specialty Start Date End Date Candice Mcnair DO [address] [place] [address] PCP - General Family Medicine 01/28/24 documented as of this encounter
--- OUTSIDE RECORDS SUMMARY | 2024-05-22 06:13 | External Medical Summary ---
Author Name Unknown Address Unknown Organization [id number]:[facility] [address] [facility] [address] Laboratory Report Ordering Provider Test Date Status ANJEL PRESSLEY 05/12/2024 16:50:34 Final Observation Date Value Abnormality Reference (Units ) Status SARS Coronavirus 2 05/12/2024 16:50:34 Negative N egative Final No SARS-CoV2 Coronavirus RNA detected by PCR (amplified probe).
This automated test was developed and its performance characteristics determined by [facility] It has not been cleared or approved [...] (RT-PCR) test, or a Centers for Disease Control-acceptable equivalent. The test is performed in a high complexity Clinical Laboratory Improvement Amendments-(CLIA) certified laboratory. The test is acceptable for SARS-CoV-2 diagnosis, surveillance, and travel within the [place] and to most countries. Please check with local testing authorities about requirements before travel.

The validation of bronchial specimens, tracheal aspirates, and sputum for this assay was developed and performance characteristics determined by [facility] The validation of alternate specimen types has not been cleared or approved by the U.S. Food and Drug Administration (FDA). It has been determined that such clearance or approval is not necessary. Influenza virus A RNA [Prese nce] in Specimen by [facility] with probe detection 05/12/2024 16:50:34 Negative Negative Final No Influenza A RNA detected by PCR (amplified probe) Influenza virus B RNA [Prese nce] in Specimen by [facility] with probe detection 05/12/2024 16:50:34 Negative Negative Final No Influenza B RNA detected by PCR (amplified probe) Respiratory syncytial virus RNA [Identifier] in Specimen by [facility] with probe detection 05/12/2024 16:50:34 Negative Negative Final No Respiratory Syncytial Vir us RNA detected by PCR (amplified probe) Performing Location [facility] [place] [address] [facility] [address]
[2024-05-22] MEDS: FUROSEMIDE 20 MG TAB PO SCH (08:28)
[2024-05-22] MEDS: METOPROLOL SUCC 25MG EXT REL TAB PO SCH ×2 (08:28→21:08)
[2024-05-22] MEDS: ROSUVASTATIN CALCIUM 20 MG TAB PO SCH (08:28)
[2024-05-22] MEDS: ASPIRIN 81 MG ECTAB PO SCH (08:29)
[2024-05-22] MEDS: GABAPENTIN 300 MG CAP PO SCH (08:29)
[2024-05-22] MEDS: FAMOTIDINE 20 MG TAB PO SCH (08:30)
[2024-05-22] MEDS: valACYclovir HCL 500 MG TABLET PO SCH (08:31)
[2024-05-22] MEDS: ASCORBIC ACID 500 MG TAB PO SCH (08:31)
[2024-05-22] MEDS: CALCIUM 600MG + VIT D 400 IU TAB PO SCH (08:31)
[2024-05-22] MEDS: CHOLECALCIFEROL 25 MCG (1000 UNITS) TAB PO SCH (08:31)
[2024-05-22] MEDS: [UNRECOGNIZED DRUG - REMARK] SCH (08:31)
[2024-05-22 09:14] LABS: BUN Creatinine Ratio 20.6 (10-20); Calcium 9.3 mg/dl (8.6-10.3); Creatinine Clr Calc Pharmacy 54.1 ml/min; Magnesium 1.7 mg/dl (1.7-2.4); Potassium 3.7 mmol/L (3.5-5.1)
--- NOTE | 2024-05-22 09:36 | Cardiology Consultation ---
Date of Consultation May 22, 2024 Assessment & Plan (1) Pneumonia: (2) Immunosuppressed status: (3) New onset atrial fibrillation: (4) Sinus tachycardia: (5) Premature atrial contractions: (6) ASCVD (arteriosclerotic cardiovascular disease): Plan Right-sided pneumonia. Vesicular rash consistent with shingles. Immunocompromise patient. As per Hospitalist. New onset atrial fibrillation with rapid ventricular response. Patient asymptomatic. EKG and telemetry personally reviewed, revealing sinus tachycardia with frequent premature atrial contractions and short runs of paroxysmal atrial tachycardia. No overt atrial fibrillation observed. Increase metoprolol succinate dosing. Maintain electrolytes. Discontinue weight-based IV heparin. DVT prophylaxis as per Hospitalist. Elevated troponin, demand ischemia secondary to acute illness. Patient with known ASCVD. Patient asymptomatic. Continue medical management with aspirin, statin, beta-irlanda. Resume long-acting nitrates, Imdur 30 mg/day Hypertension. Increase metoprolol, resume Imdur. Follow. Consider resumption of Losartan next. Dyslipidemia. Continue rosuvastatin 40 mg/day. Supervising Physician Co-Signing Physician Notes Patient was seen and examined, chart, medications, telemetry reviewed. Care and management discussed in detail and outlined as above by advanced provider. All recommendations personally endorsed. Fragile 89-year-old female admitted with pneumonia initially cardiac findings stable. Transient tachycardia, atrial tachycardia on presentation no overt atrial fibrillation. Anticoagulation discontinued recommendations as noted above. History of Present Illness Reason for Consultation: New atrial fibrillation Requesting Physician: Dr. Kaufman Attending Physician: Dr. Ely Wood MD History of Present Illness Sunita Thomas is an 89-year-old female who presented to [facility] ER on May 21, 2024 from [facility] with confusion, cough, shortness of breath, progressive issues despite outpatient attempts at management with oral doxycycline. Patient febrile on presentation. Imaging of the chest revealed right lower lobe infiltrate consistent with pneumonia. Vesicular rash noted on left anterior neck. EKG was interpreted as atrial fibrillation with a rapid ventricular response, receiving 25 mg Lopressor, 15 mg of diltiazem, diltiazem infusion transiently, and IV heparin. Personal review of the patient's EKG reveals sinus tachycardia with frequent premature atrial contractions. High-sensitivity troponin mildly elevated 25.9 -> 50.0 -> 47.9 pg/mL. Patient without chest pain, palpitations, or shortness of breath. Problem list: 1. Atherosclerotic coronary disease with prior anterior myocardial infarction in January of 2009 with stenting of the left anterior descending. 2. Recurrent angina pectoris with subsequent repeat coronary intervention with stenting of the mid to distal LAD in October of 2011, receiving drug-eluting stent. 3. Hyperlipidemia. 4. Chronic rheumatoid arthritis on immunosuppressive therapy. 5. History of prior lumbar laminectomy in November of 2014 with chronic postoperative pain, post-laminectomy syndrome, peripheral neuropathy 6: History of syncopal event, May 2017. 7. Nonsustained ventricular tachycardia on event monitor 8. EP study negative for inducible arrhythmia December 27, 2017 with associated loop recorder implantation 9. Hospitalization October 2020 following a fall with multiple contusions and COVID pneumonitis 10. Distal abdominal aortic aneurysm with ulcer 11. Bilateral carotid artery disease 12. Lower extremity wounds 13. Chronic renal dysfunction Allergies Allergy/AdvReac Type Severity Reaction Status Date / Time morphine Allergy Severe Anaphylaxis Verified 04/21/24 09:42 hydroxychloroquine Allergy Intermediate Rash Verified 04/21/24 09:42 lisinopril Allergy Intermediate GI Verified 04/21/24 09:42 symptoms, cough shrimp Allergy Intermediate GI symptoms Verified 04/21/24 09:42 Sulfa (Sulfonamide Allergy Intermediate HIVES Verified 04/21/24 09:42 Antibiotics) pregabalin [From Lyrica] AdvReac Severe Edema Verified 04/21/24 09:42 adhesive AdvReac Intermediate Tape- rash Verified 04/21/24 09:42 benzonatate AdvReac Mild GI upset Verified 04/21/24 09:42 codeine AdvReac Mild Nausea Verified 04/21/24 09:42 Home Medications Medication Instructions Recorded Confirmed Type ascorbic acid (vitamin C) 500 mg 500 mg PO DAILY 05/21/24 05/21/24 History tablet (Vitamin C) aspirin 81 mg tablet,delayed 81 mg PO DAILY 05/21/24 05/21/24 History release buprenorphine 15 mcg/hour weekly 15 patch topical UD 05/21/24 05/21/24 History transdermal patch calcium 500 mg (as 1 tab PO DAILY 05/21/24 05/21/24 History carbonate)-vitamin D3 5 mcg (200 unit) tablet (Oyster Shell Calcium-Vitamin D3) cholecalciferol (vitamin D3) 25 25 mcg PO DAILY 05/21/24 05/21/24 History mcg (1,000 unit) capsule (Vitamin D3) colesevelam 625 mg tablet 625 mg PO BID 05/21/24 05/21/24 History dicyclomine 10 mg capsule 10 mg PO BID PRN Abdominal Pain 05/21/24 05/21/24 History docusate sodium 100 mg capsule 100 mg PO BID PRN Constipation 05/21/24 05/21/24 History (Colace) doxycycline hyclate 100 mg capsule 100 mg PO BID 05/21/24 05/21/24 History famotidine 20 mg tablet 20 mg PO DAILY 05/21/24 05/21/24 History furosemide 20 mg tablet 20 mg PO UD 05/21/24 05/21/24 History gabapentin 300 mg capsule 300 mg PO BID 05/21/24 05/21/24 History melatonin 3 mg tablet 6 mg PO HS PRN Insomnia 05/21/24 05/21/24 History metoprolol succinate 25 mg 25 mg PO BID 05/21/24 05/21/24 History tablet,extended release 24 hr [id number] 250 mg-dha 90 1 cap PO DAILY 05/21/24 05/21/24 History mg-epa 160 [id number]-[id number] capsule (Ocuvite Adult 50 Plus) polyethylene glycol 3350 17 gram 17 g PO DAILY 05/21/24 05/21/24 History oral powder packet (Miralax) rosuvastatin 40 mg tablet 40 mg PO DAILY 05/21/24 05/21/24 History simethicone 80 mg chewable tablet 80 mg PO Q6H PRN Gastrointestinal 05/21/24 05/21/24 History Spasms Or Cramping tofacitinib 11 mg tablet,extended 11 mg PO DAILY 05/21/24 05/21/24 History release 24 hr (Xeljanz XR) tramadol 50 mg tablet 25 mg PO BID PRN Pain 05/21/24 05/21/24 History triamcinolone acetonide 0.1 % 1 applic topical BID PRN Rash 05/21/24 05/21/24 History topical cream Patient History Medical History CAD (coronary artery disease) s/p 2 stents Open wound right hand, sees wound clinic Sacral neurostimulator in situ instructed to bring remote dos Hx of supraventricular tachycardia follows with [facility] cardiology AAA (abdominal aortic aneurysm) Abdomen/Pelvis CT 11/2023: Stable Right infrarenal aortic aneurysm measures 44 mm GERD (gastroesophageal reflux disease) Hx of migraines Hx of myocardial infarction (~2008) Lumbar spinal stenosis Postlaminectomy syndrome, lumbar region no current issues Dyslipidemia History of COVID-19 2020- [facility] admission with acute respiratory failure > no residual effects Neuropathy in both legs, rt>lt Right knee pain Status post TKA taking shots due to bursitis (no shots for at least 3 months) Surgical History Hx of toe surgery Bilateral Feet Second and Third Digit Flexor Tenotomy(Bilateral) Hx of colonoscopy Hx of heart artery stent ~2008, [facility], x1 stent, 2/2 [place] ~2011, [facility], x1 stent, 2/2 heart symptoms; f/zachary thakur Hx of cardiac cath ~2008, [facility], x1 stent, 2/2 [place] ~2011, [facility], x1 stent, 2/2 heart symptoms; f/u zachary bergeron History of total shoulder replacement Right History of loop recorder no longer working > follows with Dr Bergeron S/P total knee arthroplasty Right History of lumbosacral spine surgery 50+ years for first one, 2nd one 2014, both lower back; flexible rainer and does lesi History of PTCA Remote hx "years ago" History of hysterectomy History of breast biopsy History of tonsillectomy History of adenoidectomy History of angioplasty Family History Father Myocardial infarction Brother Myocardial infarction Other Family history non-contributory Denies family history of Ovarian cancer Prostate cancer Breast cancer Colorectal cancer Social History Smoking Status: Former smoker Tobacco Type: Cigarettes Second Hand Exposure: No; Do You Dip or Chew Tobacco: No; Hx Alcohol Use: Yes Alcohol type: wine Alcohol type Comment: In the evenings. Alcohol Intake Frequency: 4 or More x per/Week Hx Substance Use: No Preferred Language: Hebrew Communication Ability: Effective Visual Impairment: Limited Hearing Ability: Normal Title One Reading Teacher Required: No Beliefs That Will Affect Care: None marital status: Current Living Situation: Personal Care Facility Current Living Situation Comment: [facility] current occupational status: retired How many Children do You have: 7 Feels Safe at Home: Yes Diet: regular caffeine: No during the past year weight has: remained stable Assistive Devices: Walker and Wheelchair Review of Systems Review of Systems: Complete Review of Systems unable to be obtained, confusion Physical Exam Physical Exam: General: No acute distress. Skin: Vesicular rash anterolateral neck Head: Normocephalic. Atraumatic. Eyes: Sclera clear Neck: Bilateral carotid bruits. No JVD. Lungs: Decreased. Diminished. Right basilar rales. Cardiac: Irregularly irregular at 100 bpm. Grade I-II/ systolic murmur. Abdomen: +BS. Soft. Nontender. Extremities: Thin skin with diffuse ecchymosis. No cyanosis. Pulses: 1/4 Neuro: Confused. No focal deficit. Results & Data Vital Signs (Past 12 Hours) Vital Signs Temp Pulse Pulse Resp BP BP Pulse Ox 05/22/24 08:09 36.8 C 103 H 18 167/101 H 96 05/22/24 05:54 96 H 05/22/24 05:44 99 H 18 97 05/22/24 05:23 125 H 165/100 H 05/22/24 03:12 37.0 C 108 H 18 171/83 H 96 05/22/24 00:31 37.3 C 94 H 18 196/90 H 97 05/22/24 00:27 85 05/22/24 00:27 05/21/24 23:28 36.9 C 83 18 175/92 H 95 05/21/24 22:30 82 22 165/91 H 95 05/21/24 22:15 87 18 169/85 H 95 05/21/24 22:06 89 24 158/95 H 94 05/21/24 21:46 95 H 18 148/93 H 94 05/21/24 21:45 95 H 17 148/93 H 94 Pulse Ox O2 Del Method O2 Del Method O2 Flow Rate O2 Flow Rate 05/22/24 08:09 Nasal Cannula 3.0 05/22/24 05:54 05/22/24 05:44 Nasal Cannula 2 05/22/24 05:23 05/22/24 03:12 Nasal Cannula 2 05/22/24 00:31 Nasal Cannula 2 05/22/24 00:27 05/22/24 00:27 98 Nasal Cannula 2 05/21/24 23:28 Nasal Cannula 3 05/21/24 22:30 Nasal Cannula 3 05/21/24 22:15 Nasal Cannula 3 05/21/24 22:06 Nasal Cannula 2 05/21/24 21:46 Nasal Cannula 3 05/21/24 21:45 Nasal Cannula 3 Laboratory Results Cardiac Enzymes 05/21/24 05/21/24 05/22/24 Range/Units 16:38 19:30 05:22 AST 15 (13-39) U/L Troponin I High Sens 25.9 H 50.0 H* D 47.9 H (0-14) pg/ml B-Natriuretic Peptide 324 H (0-100) pg/ml Coagulation 05/21/24 05/21/24 Range/Units 16:38 19:30 PT 10.3 (9.0-12.0) Seconds APTT 24 (21-31) Seconds B-Natriuretic Peptide 324 H (0-100) pg/ml CBC 05/21/24 05/22/24 Range/Units 16:38 05:22 WBC 8.45 11.22 H (4.8-10.8) K/ul RBC 4.61 4.21 (4.20-5.40) M/uL Hgb 13.8 12.4 (12.0-16.0) g/dl Hct 43.4 38.9 (37.0-47.0) % Plt Count 354 303 (130-400) K/uL Neut # (Auto) 6.72 H 9.90 H (1.40-6.50) K/uL Lymph # (Auto) 0.90 L 0.50 L (1.20-3.40) K/uL Stearns # (Auto) 0.66 H 0.68 H (0.11-0.59) K/uL Eos # (Auto) 0.09 0.02 (0.00-0.50) K/uL Baso # (Auto) 0.03 0.03 (0.00-0.20) K/uL Comprehensive Metabolic Panel 05/21/24 05/22/24 Range/Units 16:38 05:22 Sodium 138 134 L (136-145) mmol/L Potassium 4.1 3.7 (3.5-5.1) mmol/L Chloride 100 101 (98-107) mmol/L Carbon Dioxide 28 21 (21-32) mmol/L BUN 19 14 (6-23) mg/dl Creatinine 0.92 0.68 (0.6-1.2) mg/dl Glucose 140 H 142 H (70-99(Fasting)) mg/dl Calcium 10.4 H 9.3 (8.6-10.3) mg/dl Direct Bilirubin 0.2 (0-0.2) mg/dl AST 15 (13-39) U/L ALT 4 L (7-52) U/L Alkaline Phosphatase 66 (34-104) U/L Total Protein 8.4 H (6.0-8.3) gm/dl Albumin 4.3 (3.4-5.0) gm/dl Intake and Output 05/21/24 05/22/24 05/22/24 22:59 06:59 14:59 Intake Total 1359.833 / 1459.833 100 / 1459.833 Output Total 600 / 600 Balance 759.833 / 859.833 100 / 859.833 Intake: IV 1109.833 / 1209.833 100 / 1209.833 Acetaminophen 1,000 mg In 100 100 / 100 ml @ 400 mls/hr IV NOW STA Rx#: [id number] Piperacillin/Tazobactam 4.5 gm 100 / 100 In 100 ml @ 25 mls/hr IV Q8H PAULA Rx#:[id number] Sodium Chloride 0.9% 1,000 ml @ 1000 / 1000 999 mls/hr IV .Q1H1M PAULA Rx#: [id number] dilTIAZem HCL 125 mg In 9.833 / 9.833 Dextrose 5% 100 ml @ 0 MG/HR IV .Q0M PAULA Rx#:[id number] Oral 250 / 250 0 / 250 Output: Urine 600 / 600 Other: Weight 68.8 kg 67.9 kg Weight Measurement Method [facility]
[2024-05-22] MEDS: OMEGA-3 (PURIFIED FISH OIL) 1 GM CAP PO SCH (09:37)
--- NOTE | 2024-05-22 09:44 | Hospitalist Progress Note ---
Date of Service May 22, 2024 Assessment & Plan (1) Sepsis due to pneumonia: (2) Acute respiratory failure with hypoxemia: (3) Sinus tachycardia: (4) Premature atrial contractions: (5) Paroxysmal atrial tachycardia: (6) Elevated troponin I level: (7) Shingles rash: (8) Hypertension: (9) ASCVD (arteriosclerotic cardiovascular disease): (10) AAA (abdominal aortic aneurysm) without rupture: (11) Hx of rheumatoid arthritis: (12) Opioid dependence: (13) Ambulatory dysfunction: Plan Sunita is an 89 year old female with PMH significant for bilateral severe carotid artery stenosis, AAA, HTN, dyslipidemia, diastolic CHF, CKD III, GERD, DDD, chronic back pain with opioid dependence, RA on Xeljanz, history of syncope, history of unsustained vtach s/p implanted loop recorder, history of shingles, and ambulatory dysfunction who presented to the ED yesterday for fever and cough. She went to her PCP on 05/19 for URI symptoms and was prescribed doxycycline. In the ED, she was found to be hypoxic and tachycardic and telemetry showed presumed new onset Afib with RVR. She was given a bolus and started on a cardizem drip which converted her back to NSR. A CXR revealed a right sided infiltrate consistent with PNA. Her labs demonstrated negative leukocytosis, procalcitonin, and lactate. She had a negative viral panel. She was admitted for sepsis secondary to PNA and evaluation for possible new onset Afib. 1. Sepsis secondary to pneumonia Acute problem. Patient meets criteria for sepsis given tachycardia, tachypnea, and CXR demonstrating PNA on admission. Currently not tachycardic or tachypneic. Afebrile. Leukocytosis 11.2 on labs this AM. Continue IV zosyn q8hr and PO azithromycin daily. Follow pending blood cultures. Ordered ISP. 2. Acute respiratory failure with hypoxemia Acute problem. On 2-3L via NC. No increased WOB. 2. Sinus tachycardia, PACs, PAT Acute problem. Asymptomatic. Cardiology consulted and reviewed EKG and telemetry which revealed sinus tachycardia with frequent PACs and short runs of PAT, ruled out new onset Afib with RVR. Per Cardiology recommendations: increase metoprolol succinate dosing from 25mg bid to 37.5mg bid, discontinue IV heparin, monitor electrolytes qAM and replete as needed. 3. Elevated troponin Acute problem. Asymptomatic. Cardiology consulted and recommend continued medical management with aspirin, statin, beta [place], plus resumption of Imdur 30mg daily. 4. Hypertension Chronic, uncontrolled. Asymptomatic. Cardiology consulted and recommend resumption of Imdur 30mg daily and consider resumption of Losartan next. Routine BP monitoring. 5. Shingles rash Acute problem. Continue valacyclovir. 6. Bilateral severe carotid artery stenosis Chronic, stable. Asymptomatic. Previously presented to the ED on 12/20/23 for confusion and had a neck CTA which revealed severe stenosis of the left ICA, 80- 90% stenosis of the distal LCCA, proximal left ICA and ECA and mild stenosis of the ISAIAH. She follows with [facility] (last seen 12/25/23) every 6 months. 7. AAA Chronic, stable. Asymptomatic. She follows with [facility] (last seen 12/25/23) every 6 months. 8. Dyslipidemia Chronic, stable. Continue statin. 9. Chronic back pain, opioid dependence Chronic, stable. Continue pain medication. 10. Rheumatoid arthritis Chronic, stable. Holding Xeljanz. 1. GERD Chronic, stable. Continue famotodine. DVT Prophylaxis: subQ lovenox Code Status: DNR/DNI - As per discussion at bedside with the patient. PCP: Dr. Candice Mcnair, DO Disposition: Not medically cleared for discharge. PT/OT consults placed. Patient seen in collaboration with Dr. Wood. Please see addendum. I spent a total of 50 minutes coordinating, documenting and providing care for this patient excluding time spent in the performance of separately billed services or time spent by another provider/QHP. Admission and Anticipated Discharge Date Admission Date: May 21, 2024 Supervising Physician Co-Signing Physician Notes Patient seen and examined Reports cough Has vesiculopapular rash on left side of neck Reviewed with Cardiology. Heart rhythm was not Afib. Heparin drip stopped Metoprolol increased and imdur started by Cardiology Continue antibiotics Continue valacyclovir Follow up infectious workup Wean oxygen as tolerated PT/OT Agree with findings and plans as detailed by Mary Ann URBAN Belen Dorsey is doing well this morning. She denies fevers, chills, chest pain, heart palpitations, SOB, abdominal pain, N/V/D. She reports discomfort with the rash on the left side of her neck. No concerns from nursing. Review of Systems Review of Systems: All systems reviewed & are unremarkable except as noted in HPI & below Physical Exam Physical Exam: VITALS: Reviewed. Tachycardic and hypertensive. GEN: Healthy appearing, well-developed female, NAD. PSYCH: Good Judgment. AOx3. Normal memory, mood, and affect. HEENT: Head NC/AT. Sclera white, conjunctiva pink. Nares without rhinorrhea. Nasal and oral mucosa pink. Neck: Supple with no masses. CV: Irregular rate and rhythm, no m/r/g. LUNGS: Diminished breath sounds and scattered rhonchi in posterior lung medina. ABD: Soft, NT/ND, NBS, no masses or organomegaly. SKIN: Warm, well perfused. Erythematic and vesicular rash on left anterior neck. MSK: No deformities. EXT: No clubbing, cyanosis, or edema. NEURO: Ambulates with walker. Results & Data Results & Data Vital Signs (Past 12 Hours) Vital Signs Temp Pulse Pulse Resp BP BP Pulse Ox 05/22/24 09:30 05/22/24 09:30 96 H 05/22/24 08:09 36.8 C 103 H 18 167/101 H 96 05/22/24 05:54 96 H 05/22/24 05:44 99 H 18 97 05/22/24 05:23 125 H 165/100 H 05/22/24 03:12 37.0 C 108 H 18 171/83 H 96 05/22/24 00:31 37.3 C 94 H 18 196/90 H 97 05/22/24 00:27 85 05/22/24 00:27 05/21/24 23:28 36.9 C 83 18 175/92 H 95 Pulse Ox O2 Del Method O2 Del Method O2 Flow Rate O2 Flow Rate 05/22/24 09:30 Room Air 05/22/24 09:30 05/22/24 08:09 Nasal Cannula 3.0 05/22/24 05:54 05/22/24 05:44 Nasal Cannula 2 05/22/24 05:23 05/22/24 03:12 Nasal Cannula 2 05/22/24 00:31 Nasal Cannula 2 05/22/24 00:27 05/22/24 00:27 98 Nasal Cannula 2 05/21/24 23:28 Nasal Cannula 3 Laboratory Results Short CBC 05/21/24 05/22/24 Range/Units 16:38 05:22 WBC 8.45 11.22 H (4.8-10.8) K/ul Hgb 13.8 12.4 (12.0-16.0) g/dl Hct 43.4 38.9 (37.0-47.0) % Plt Count 354 303 (130-400) K/uL BMP 05/21/24 05/22/24 16:38 05:22 Sodium 138 134 L Potassium 4.1 3.7 Chloride 100 101 Carbon Dioxide 28 21 BUN 19 14 Creatinine 0.92 0.68 Glucose 140 H 142 H Calcium 10.4 H 9.3 Liver Function 05/21/24 Range/Units 16:38 Total Bilirubin 0.5 (0.2-1.0) mg/dl Direct Bilirubin 0.2 (0-0.2) mg/dl AST 15 (13-39) U/L ALT 4 L (7-52) U/L Alkaline Phosphatase 66 (34-104) U/L Albumin 4.3 (3.4-5.0) gm/dl Urine 05/21/24 Range/Units Unknown Urine Color Yellow Urine Appearance Cloudy A (Clear) Urine pH 7.5 (4.5-7.5) Ur Specific [place] 1.015 (1.000-1.030) Urine Protein 2+ H (Negative) Urine Glucose (UA) Negative (Negative) I have independently reviewed and interpreted patient's labs including CBC, CMP, mag and troponin. Diagnostic Findings Chest CTA 05/21/24 22:25 EXAM: CT angio chest PE protocol CLINICAL HISTORY: PE TECHNIQUE: CT angiography of the chest was performed with and without intravenous contrast with the following protocol: axial images with, reconstructed coronal and sagittal images. Non-contrast images were initially acquired, followed by contrast-enhanced images in arterial and venous phases. Intravenous contrast 118 ml optiray 320 was administered using automated injection techniques. Bolus tracking was employed to optimize arterial phase imaging. One of these 3D techniques was utilized: Maximum Intensity Pixel (MIP), 3D Reconstructed Images, Volume Rendered Images, Surface Shaded Rendering. One of the following dose reduction techniques was utilized for this exam: Automated exposure control, adjustment of the mA and/or kV according to patient size, and use of iterative reconstruction. COMPARISON: 10/27/2020 FINDINGS: Aorta and Great Vessels: Ascending Aorta: Normal in caliber, no aneurysm, dissection, or significant atherosclerosis. Aortic Arch: Normal in caliber, no aneurysm, dissection, or significant atherosclerosis. Descending Aorta: Normal in caliber, no aneurysm, dissection, or significant atherosclerosis. Pulmonary Arteries: The main pulmonary artery and its branches are patent. No evidence of pulmonary embolism or significant stenosis. Heart: Cardiac Chambers: Normal in size. No evidence of cardiomegaly. Pericardium: No pericardial effusion or thickening. Suggestion of leadless pacemaker in the chest wall Lungs and Pleura: Multifocal areas of ground glass densities with interlobular septal thickening and nodular opacities are noted involving both lung medina. There is a right lower lobe confluenting consolidation. There is trace of right effusion. Mediastinum: No mediastinal mass or abnormal lymphadenopathy. Normal appearance of the trachea and central bronchi. Hilar Structures: Hilar structures are normal without enlargement. Chest Wall: No mass lesions or abnormalities in the chest wall. Vascular Structures: Superior Vena Cava: Patent without evidence of stenosis or thrombus. Inferior Vena Cava: Patent without evidence of stenosis or thrombus. Upper abdomen: The sections from upper abdomen demonstrate a rounded fluid attenuating area measuring 2.0 x 1.8 cm with peripheral rim of calcification is seen in close proximity to the mid body of pancreas. Mild left-sided perinephric fat stranding. Bones and Soft Tissues: Age-indeterminate fracture of the right 12th rib is noted. Age-indeterminate fractures of T12 and L1 vertebral bodies is noted with loss of more than 50% vertebral body heights. No retropulsion or retrolisthesis is appreciated. Multilevel moderate thoracic degenerative changes. Mild degenerative changes at both shoulder joints. Patient is s/p right shoulder arthroplasty. Soft tissues are unremarkable. IMPRESSION: 1. Scattered areas of ground glass density with interlobular septal thickening and nodular opacities are seen. 2. Right lower lobe airspace confluent in consolidation with trace of right pleural effusion, interval new finding. 3. The constellation of findings suggests acute on chronic infective etiology when compared to prior study. Recommend clinical correlation and follow-up. 4. Fluid attenuating lesion is noted in close in addition to body of pancreas, not appreciated on prior. Further assessment with enhanced CT abdomen is recommended. 5. Age-indeterminant fracture of right 12th rib, T12 and L1 vertebral bodies. Electronically signed by Alan Pineda 05-22-2024 01:21 AM Medications Administered Current Inpatient Medications Ascorbic Acid (Ascorbic Acid 500 Mg Tab) 500 mg PO DAILY [facility] Stop: 06/21/24 08:59 Last Admin: 05/22/24 08:31 Dose: Not Given Aspirin (Aspirin 81 Mg Ectab) 81 mg PO DAILY [facility] Stop: 06/21/24 08:59 Last Admin: 05/22/24 08:29 Dose: 81 mg Azithromycin (Azithromycin 250 Mg Tab) 500 mg PO HS [facility] Stop: 05/27/24 20:59 Buprenorphine HCl (Buprenorphine 10 Mcg/Hr Tdsy) 1 patch TD Mo@0900 [facility] Stop: 06/24/24 08:59 Buprenorphine HCl (Buprenorphine 5 Mcg/Hr Tdsy) 1 patch TD Mo@0900 [facility] Stop: 06/24/24 08:59 Calcium/Vitamin D (Calcium 600mg + Vit D 400 Iu Tab) 1 tab PO DAILY [facility] Stop: 06/21/24 08:59 Last Admin: 05/22/24 08:31 Dose: Not Given Dicyclomine HCl (Dicyclomine Hcl 10 Mg Cap) 10 mg PO BID PRN PRN Reason: Abdominal Pain Stop: 06/21/24 00:26 Docusate Sodium (Docusate Sodium 100 Mg Cap) 100 mg PO BID PRN PRN Reason: Constipation Stop: 06/21/24 00:26 Famotidine (Famotidine 20 Mg Tab) 20 mg PO DAILY [facility] Stop: 06/21/24 08:59 Last Admin: 05/22/24 08:30 Dose: 20 mg Fish Oil (Iselin-3 (Purified Fish Oil) 1 Gm Cap) 1 cap PO DAILY [facility] Stop: 06/21/24 08:59 Last Admin: 05/22/24 09:37 Dose: Not Given Furosemide (Furosemide 20 Mg Tab) 20 mg PO MoWeFr@0900 [facility] Stop: 06/21/24 08:59 Last Admin: 05/22/24 08:28 Dose: 20 mg Gabapentin (Gabapentin 300 Mg Cap) 300 mg PO BID [facility] Stop: 06/21/24 08:59 Last Admin: 05/22/24 08:29 Dose: 300 mg Heparin Sodium/Dextrose (Heparin 40409 Unit/500 Ml D5w) 25,000 units in 500 mls @ 15 mls/hr IV .Q24H [facility]; Protocol Stop: 06/20/24 22:44 Last Admin: 05/21/24 23:12 Dose: 750 units/hr, 15 mls/hr Sodium Chloride (Nss) 1,000 mls @ 80 mls/hr IV .[id number] [facility] Stop: 05/22/24 22:29 Last Admin: 05/21/24 22:46 Dose: 80 mls/hr Piperacillin Sod/Tazobactam Sod (Zosyn) 4.5 gm in 100 mls @ 25 mls/hr IV Q8H [facility]; Protocol Stop: 05/27/24 00:59 Last Admin: 05/22/24 08:28 Dose: 25 mls/hr Isosorbide Mononitrate (Isosorbide [place] Extended Rel 30 Mg Tabcr) 30 mg PO QAM [facility] Stop: 06/21/24 09:44 Last Admin: 05/22/24 10:18 Dose: 30 mg Melatonin (Melatonin 3 Mg Tab) 6 mg PO HS PRN PRN Reason: Insomnia Stop: 06/21/24 00:26 Metoprolol Succinate (Metoprolol Succ 25mg Ext Rel Tab) 37.5 mg PO BID [facility] Stop: 06/21/24 20:59 Metoprolol Tartrate (Metoprolol Tartrate 1 Mg/Ml Vial) 5 mg IV Q6 PRN PRN Reason: Tachycardia Stop: 06/21/24 00:26 Last Admin: 05/22/24 05:23 Dose: 5 mg Miscellaneous (Colesevelam: Order Awaiting Action) 1 each N/A QS [facility] Stop: 06/21/24 07:59 Last Admin: 05/22/24 08:31 Dose: Not Given Miscellaneous (15 Mcg Patch: Remove & Waste [place] Patch 1 Ea Ea) 1 each N/A Mo@0859 [facility] Stop: 05/25/24 09:00 Miscellaneous (10 Mcg Patch: Remove & Waste [place]rans Patch 1 Ea Ea) 1 each N/A Mo@0859 [facility] Stop: 07/01/24 08:58 Miscellaneous (5 Mcg Patch: Remove & Waste Butrans Patch 1 Ea Ea) 1 each N/A Mo@0859 [facility] Stop: 06/01/24 09:00 Miscellaneous (15 Mcg Patch: Check Buprenorphine Patch) 1 each N/A QS [facility] Stop: 05/25/24 07:59 Last Admin: 05/22/24 08:31 Dose: 1 each Miscellaneous (10 Mcg Patch: Check Buprenorphine Patch) 1 each N/A QS [facility] Stop: 06/24/24 15:59 Miscellaneous (5 Mcg Patch: Check Buprenorphine Patch) 1 each N/A QS [facility] Stop: 06/24/24 15:59 Nitroglycerin (Nitroglycerin Sl 0.4 Mg/Tab Tab) 0.4 mg SL Q5M PRN PRN Reason: Chest Pain Stop: 06/21/24 00:26 Ondansetron HCl (Ondansetron Inj 2 Mg/Ml 2 Ml Vial) 4 mg IV Q6H PRN PRN Reason: Nausea Stop: 06/21/24 00:26 Polyethylene Glycol (Polyethylene (Miralax) 17 Gm Pack) 17 gm PO DAILY PRN PRN Reason: Constipation Stop: 06/21/24 00:26 Rosuvastatin Calcium (Rosuvastatin Calcium 20 Mg Tab) 40 mg PO DAILY [facility] Stop: 06/21/24 08:59 Last Admin: 05/22/24 08:28 Dose: 40 mg Simethicone (Simethicone 80 Mg Chew) 80 mg PO Q6H PRN PRN Reason: Gastrointestinal Spasms Or Cramping Stop: 06/21/24 00:26 Tramadol HCl (Tramadol Hcl 50 Mg Tablet) 25 mg PO BID PRN PRN Reason: Pain Stop: 06/21/24 00:26 Valacyclovir HCl (Valacyclovir Hcl 500 Mg Tablet) 1,000 mg PO TID [facility] Stop: 05/29/24 08:59 Last Admin: 05/22/24 08:31 Dose: 1,000 mg Vitamin D (Cholecalciferol 25 Mcg (1000 Units) Tab) 25 mcg PO DAILY [facility] Stop: 06/21/24 08:59 Last Admin: 05/22/24 08:31 Dose: Not Given
[2024-05-22] MEDS: ISOSORBIDE MONO EXTENDED REL 30 MG TABCR PO SCH (10:18)
--- NOTE | 2024-05-22 13:15 | CT Scan Report ---
CT OF THE ABDOMEN AND PELVIS WITHOUT CONTRAST CLINICAL HISTORY: re-evaluate pancreas, follow up from CT chest COMPARISON STUDY: Chest CT May 21, 2024. CT of the abdomen and pelvis November 22, 2023. TECHNIQUE: Axial images of the abdomen and pelvis were obtained without IV contrast. Images were revi ewed in the axial, sagittal, and coronal planes. Automated exposure control was utilized for the gigi dy. A dose lowering technique was utilized adhering to the principles of ALARA. FINDINGS: Scattered alveolar opacities within the lower lungs are noted. Secretions within lower lobe bronchi are present. There is no pneumatosis, free air or portal venous gas. Incidental note is made of excreted contrast from recent contrast-enhanced CT. A 4.7 cm infrarenal abdominal aortic aneurysm has slightly increased in caliber since CT of November 22, 2023 when it measured 4.4 cm. There is n o evidence for rupture. There is extensive aortoiliac atherosclerotic plaque. There is no evidence fo r a bowel obstruction. Note is made of colonic diverticulosis without evidence for acute diverticulit is. No biliary or pancreatic ductal dilatation is present. Unenhanced images of the liver, spleen and adrenal glands are unremarkable. A cystic 2.4 cm pancreatic body lesion on image 99 is unchanged sin ce CT of November 22, 2023. This contains peripheral/dependent calcifications. Although suboptimally assessed on unenhanced exam, no solid component is identified. Pancreatic glandular atrophy is uncha nged. There is no lymphadenopathy. Old compression fractures of T12-L4 are unchanged. There are stabl e findings following L2-L4 decompression and fusion. No acute lumbar spine, pelvic or hip fractures a re identified. IMPRESSION: 1. 2.4 cm cystic pancreatic body lesion which is unchanged since CT of November 22, 2023. Although s uboptimally assessed on unenhanced exam, this is low suspicion and may represent a side branch IPMN. No pancreatic ductal dilatation. 2. Slight increase in caliber of a 4.7 cm infrarenal abdominal aortic aneurysm. No rupture. 3. Alveolar opacities within the lower lungs which favor pneumonia or aspiration pneumonitis. 4. No bowel obstruction. ACT 112: Negative or not required by law. Electronically signed by: Freddy Rivera M.D. 05/22/2024 1:12 PM
[2024-05-22] MEDS ORDERED: ENOXAPARIN INJ 40 MG/0.4 ML SYR SQ SCH (14:00)
[2024-05-22] MEDS: HEPARIN SOD 5,000 UNIT/0.5 ML VIAL SQ SCH (14:38)
[2024-05-22] MEDS: METOPROLOL TARTRATE 1 MG/ML VIAL IV STA ×2 (17:02→17:14)
[2024-05-22] MEDS ORDERED: LIDOCAINE 5% 1 PATCH TD SCH (20:15)
[2024-05-22] MEDS ORDERED: AZITHROMYCIN 250 MG TAB PO SCH (21:00)
[2024-05-22] MEDS: AZITHROMYCIN 250 MG TAB PO SCH (21:08)
[2024-05-22] MEDS: LIDOCAINE 5% 1 PATCH TD SCH (21:10)
--- NOTE | 2024-05-22 21:57 | Electrocardiogram Report ---
Test Reason : Blood Pressure : */* mmHG Vent. Rate : 134 BPM Atrial Rate : * BPM P-R Int : * ms QRS Dur : 72 ms QT Int : 304 ms P-R-T Axes : * 14 33 degrees QTcB Int : 453 ms Sinus tachycardia with frequent , and consecutive Premature supraventricular complexes vs multifocal atrial tachycardia Nonspecific ST and T wave abnormality Abnormal ECG When compared with ECG of 20-Dec-2023 13:40, Vent. rate has increased by 52 bpm Nonspecific T wave abnormality no longer evident in Anterior leads Premature supraventricular complexes are now Present Confirmed by Miguel Salinas ([id number]) on 05/22/2024 9:57:05 PM Referred By: Confirmed By: Miguel Salinas
[2024-05-23 07:13] LABS: Hemoglobin 11.5 g/dl (12.0-16.0); Mean Corpuscular Hemoglobin 29.7 pg (25.0-34.0); Mean Corpuscular Hgb Conc 32.9 g/dL (32.0-36.0); Mean Corpuscular Volume 90.4 fL (80.0-100.0); Mean Platelet Volume 9.2 fL (9.4-12.4); Platelet Count 302 K/uL (130-400); RDW Coefficient of Variation 15.2 % (11.5-14.5); RDW Standard Deviation 50.4 fL (36.4-46.3); Red Blood Count 3.87 M/uL (4.20-5.40); White Blood Count 12.59 K/ul (4.8-10.8)
[2024-05-23 07:31] LABS: BUN Creatinine Ratio 23.4 (10-20); Calcium 8.8 mg/dl (8.6-10.3); Creatinine Clr Calc Pharmacy 47.8 ml/min; Magnesium 1.9 mg/dl (1.7-2.4); Potassium 3.7 mmol/L (3.5-5.1)
--- NOTE | 2024-05-23 08:10 | Cardiology Progress Note ---
Date of Service May 23, 2024 Assessment & Plan (1) Immunosuppressed status: (2) Shingles rash: (3) Pneumonia: (4) Sinus tachycardia: (5) Premature atrial contractions: (6) Ventricular premature complexes: (7) ASCVD (arteriosclerotic cardiovascular disease): Plan Right-sided pneumonia. Vesicular rash consistent with shingles left neck, C2/3 dermatome distribution. Immunocompromise patient. As per Hospitalist. Sinus tachycardia with atrial and ventricular ectopy and short runs of paroxysmal atrial tachycardia. No atrial fibrillation/flutter. Increase metoprolol succinate dosing, 50 mg BID. Supplement potassium. Elevated troponin, demand ischemia secondary to acute illness. Patient with known ASCVD. Patient asymptomatic. Continue medical management with aspirin, statin, beta-irlanda. Resume long-acting nitrates, Imdur 30 mg/day Hypertension. Likely being driven by the pain. Increase metoprolol. Imdur resume. Pain control as per Hospitalist. May need to resume Losartan at least temporarily. Dyslipidemia. Continue rosuvastatin 40 mg/day. Admission and Anticipated Discharge Date Admission Date: May 21, 2024 Supervising Physician Co-Signing Physician Notes Patient seen and personally examined, chart, medications, telemetry reviewed. Full assessment and plan as outlined by advanced provider. Care and management personally endorsed Difficulties last evening with agitation and delirium. Continues to complain of pain along shingles exacerbation. No acute respiratory problems though heart rate trending higher with intermittent atrial tachycardia. Plan: As above Metoprolol succinate increased today. Consider gentle hydration given poor p.o. intake and acute illnesses as above Cardiology will continue to follow Subjective Patient seen and examined. Chart, medications, and telemetry reviewed. Son at bedside Complaints: Left posterolateral neck pain, C2/C3 dermatome. + Nausea. Confusion may be a little better according to son. No palpitations, chest pain, or shortness of breath. Telemetry: Sinus/sinus tachycardia with atrial and ventricular ectopy, short runs of PAT. No atrial fibrillation/flutter. EKG today reveals sinus tachycardia at 115 with atrial and ventricular ectopy, voltage criteria for LVH, nonspecific STT wave abnormality. May 23, 2023 TTE ([facility], Dr. Bergeron): Sinus rhythm with occasional atrial and ventricular ectopy. Normal LV size. Moderate concentric LVH. Normal LV wall motion. Ejection fraction 65 to 70%. Grade 1 diastolic dysfunction. Normal RV size and function. Mild RVH. Trace mitral regurgitation. Small apical and posterior loculated pericardial effusion of nonhemodynamic significance. Review of Systems Review of Systems: Complete Review of Systems unable to be obtained, confusion Physical Exam Physical Exam: General: No acute distress. Skin: Vesicular rash anterolateral neck, C2/3 dermatome distribution. Neck: Bilateral carotid bruits. No JVD. Lungs: Decreased. Diminished. Clear. Cardiac: Irregularly irregular at 100 bpm. Grade I-II/ systolic murmur. Abdomen: +BS. Soft. Nontender. Extremities: Thin skin with diffuse ecchymosis. No cyanosis. Pulses: 1/4 Neuro: Confused. No focal deficit. Results & Data Vital Signs (Past 12 Hours) Vital Signs Temp Pulse Resp BP Pulse Ox Pulse Ox O2 Del Method 05/23/24 07:59 36.2 C L 122 H 22 127/91 92 Nasal Cannula 05/23/24 02:50 36.7 C 103 H 17 161/78 H 91 Room Air 05/23/24 00:27 93 O2 Del Method 05/23/24 07:59 05/23/24 02:50 05/23/24 00:27 Free Flow/Blow-by Laboratory Results Cardiac Enzymes 05/22/24 05/22/24 Range/Units 10:49 16:45 Troponin I High Sens 50.6 H* 49.7 H (0-14) pg/ml CBC 05/23/24 Range/Units 07:00 WBC 12.59 H (4.8-10.8) K/ul RBC 3.87 L (4.20-5.40) M/uL Hgb 11.5 L (12.0-16.0) g/dl Hct 35.0 L (37.0-47.0) % Plt Count 302 (130-400) K/uL Comprehensive Metabolic Panel 05/22/24 05/23/24 Range/Units 05:22 07:00 Sodium 134 L 136 (136-145) mmol/L Potassium 3.7 3.7 (3.5-5.1) mmol/L Chloride 101 103 (98-107) mmol/L Carbon Dioxide 21 24 (21-32) mmol/L BUN 14 18 (6-23) mg/dl Creatinine 0.68 0.77 (0.6-1.2) mg/dl Glucose 142 H 125 H (70-99(Fasting)) mg/dl Calcium 9.3 8.8 (8.6-10.3) mg/dl Intake and Output 05/22/24 05/23/24 05/23/24 22:59 06:59 14:59 Intake Total 1350 / 2730.25 100 / 2730.25 Output Total 425 / 425 0 / 425 Balance 925 / 2305.25 100 / 2305.25 Intake: IV 1100 / 2480.25 100 / 2480.25 Piperacillin/Tazobactam 4.5 gm 100 / 300 100 / 300 In 100 ml @ 25 mls/hr IV Q8H [facility] Rx#:[id number] Sodium Chloride 0.9% 1,000 ml @ 1000 / 2000 80 mls/hr IV .[id number] [facility] Rx#: [id number] Oral 250 / 250 0 / 250 Output: Urine 0 / 0 Urine Amount (Catheter) 425 / 425 Straight 425 / 425 Other: Other Intake Source Sips Weight Measurement Method Built in [facility]
[2024-05-23] MEDS: POTASSIUM CHLORIDE CRTAB 20 MEQ TABCR PO ONE (09:03)
--- NOTE | 2024-05-23 09:19 | Hospitalist Progress Note ---
Date of Service May 23, 2024 Assessment & Plan (1) Sepsis due to pneumonia: (2) Acute respiratory failure with hypoxemia: (3) Sinus tachycardia: (4) Premature atrial contractions: (5) Paroxysmal atrial tachycardia: (6) Elevated troponin I level: (7) Shingles rash: (8) Hypertension: (9) ASCVD (arteriosclerotic cardiovascular disease): (10) AAA (abdominal aortic aneurysm) without rupture: (11) Hx of rheumatoid arthritis: (12) Opioid dependence: (13) Ambulatory dysfunction: Plan 89 year old female with PMH significant for bilateral severe carotid artery stenosis, AAA, HTN, dyslipidemia, diastolic CHF, CKD III, GERD, DDD, chronic back pain with opioid dependence, RA on Xeljanz, history of syncope, history of unsustained vtach s/p implanted loop recorder, history of shingles, and ambulatory dysfunction who presented to the ED for fever and cough. Sepsis secondary to pneumonia Acute respiratory failure with hypoxemia In the ED, she was found to be hypoxic and tachycardic and was initially thought to have new onset Afib with RVR. However, this has been ruled out CXR revealed a right sided infiltrate consistent with PNA. Met criteria for sepsis given tachycardia, tachypnea, and CXR demonstrating PNA on admission. Continue zosyn and zithromax Blood cultures negative so far Delirium in setting of infection Reorient as needed Maintenance IVF Had higgins placed for some urinary retention (increased PVR) Monitor I/O Sinus tachycardia, PACs, PAT Elevated troponin Cardiology reviewed EKG and telemetry which revealed sinus tachycardia with frequent PACs and short runs of PAT, ruled out new onset Afib with RVR. Increased metoprolol succinate to 50mg BID Hypertension Stable Imdur Shingles rash Continue valacyclovir. Pain control Bilateral severe carotid artery stenosis Chronic, stable. Asymptomatic. Previously presented to the ED on 12/20/23 for confusion and had a neck CTA which revealed severe stenosis of the left ICA, 80- 90% stenosis of the distal LCCA, proximal left ICA and ECA and mild stenosis of the ISAIAH. She follows with [facility] (last seen 12/25/23) every 6 months. AAA Chronic, stable. Asymptomatic. She follows with [facility] (last seen 12/25/23) every 6 months. Dyslipidemia Chronic, stable. Continue statin. Rheumatoid arthritis Chronic, stable. Holding Xeljanz. GERD Chronic, stable. Continue famotodine. DVT Prophylaxis: subQ hep Code Status: DNR/DNI I spent a total of 55 minutes coordinating, documenting and providing care for this patient excluding time spent in performance of separately billed services Admission and Anticipated Discharge Date Admission Date: May 21, 2024 Subjective Patient seen and examined Son at bedside Patient reports pain on left neck rash, cough Son noted she was occasionally confused overnight and this AM Has poor oral intake Higgins was placed due to high PVR Physical Exam Constitutional: + ill appearing; no acute distress Eyes: PERRL, conjunctivae normal, anicteric sclerae ENMT: Dry oral mucosa Neck: Vesicular rash on left side of neck Respiratory: Decreased breath sounds, +few crackles Cardiovascular: Rate/Rhythm: + tachycardic S1 S2 Gastrointestinal (Abdomen): normal bowel sounds, soft, nontender, no hepatosplenomegaly Musculoskeletal: No pedal edema Neurologic: PERRL, EOMI, accommodation nl, no face palsy, no dysarthria Psychiatric: Alert and oriented to person and place. +confused Results & Data Results & Data Vital Signs (Past 12 Hours) Vital Signs Temp Pulse Resp BP Pulse Ox Pulse Ox O2 Del Method 05/23/24 07:59 36.2 C L 122 H 22 127/91 92 Nasal Cannula 05/23/24 02:50 36.7 C 103 H 17 161/78 H 91 Room Air 05/23/24 00:27 93 O2 Del Method 05/23/24 07:59 05/23/24 02:50 05/23/24 00:27 Free Flow/Blow-by Laboratory Results Abnormal lab results 05/22/24 05/23/24 Range/Units 16:45 07:00 WBC 12.59 H (4.8-10.8) K/ul RBC 3.87 L (4.20-5.40) M/uL Hgb 11.5 L (12.0-16.0) g/dl Hct 35.0 L (37.0-47.0) % RDW Std Deviation 50.4 H (36.4-46.3) fL RDW Coeff of Bryan 15.2 H (11.5-14.5) % MPV 9.2 L (9.4-12.4) fL BUN/Creatinine Ratio 23.4 H (10-20) Glucose 125 H (70-99(Fasting)) mg/dl Troponin I High Sens 49.7 H (0-14) pg/ml
[2024-05-23] MEDS: METOPROLOL SUCC 50MG EXT REL TAB PO SCH (09:30)
[2024-05-23] MEDS: ACETAMINOPHEN 1,000 MG/100 ML VIAL IV PRN (09:30)
[2024-05-23] MEDS: LACTATED RINGER'S 1,000 ML IV SCH (09:30)
--- NOTE | 2024-05-23 13:16 | Electrocardiogram Report ---
Test Reason : Blood Pressure : */* mmHG Vent. Rate : 115 BPM Atrial Rate : 115 BPM P-R Int : 192 ms QRS Dur : 80 ms QT Int : 338 ms P-R-T Axes : 76 6 -45 degrees QTcB Int : 467 ms Sinus tachycardia with Premature supraventricular complexes and with occasional Premature ventricular complexes Minimal voltage criteria for LVH, may be normal variant ( R in aVL ) Nonspecific ST and T wave abnormality Abnormal ECG When compared with ECG of 21-May-2024 16:30, Sinus rhythm has replaced Atrial fibrillation Nonspecific T wave abnormality, worse in Inferior leads Confirmed by Michael Sanderson ([id number]) on 05/23/2024 1:16:06 PM Referred By: REFERRED SELF Confirmed By: Michael Sanderson
[2024-05-23] MEDS: SODIUM CHLORIDE 0.9% 1,000 ML IV SCH (18:34)
[2024-05-23] MEDS: valACYclovir HCL 500 MG TABLET PO SCH (20:31)
[2024-05-23] MEDS: MELATONIN 3 MG TAB PO PRN (20:31)
[2024-05-23] MEDS: LIDOCAINE 5% 1 PATCH TD SCH (20:33)
[2024-05-24 07:56] LABS: Hematocrit (blood only) 33.9 % (37.0-47.0); Hemoglobin 10.8 g/dl (12.0-16.0); Mean Corpuscular Hemoglobin 29.4 pg (25.0-34.0); Mean Corpuscular Hgb Conc 31.9 g/dL (32.0-36.0); Mean Corpuscular Volume 92.4 fL (80.0-100.0); Mean Platelet Volume 9.8 fL (9.4-12.4); Platelet Count 327 K/uL (130-400); RDW Coefficient of Variation 15.2 % (11.5-14.5); RDW Standard Deviation 51.3 fL (36.4-46.3); Red Blood Count 3.67 M/uL (4.20-5.40); White Blood Count 9.56 K/ul (4.8-10.8)
[2024-05-24 08:23] LABS: BUN Creatinine Ratio 22.5 (10-20); Calcium 8.6 mg/dl (8.6-10.3); Creatinine Clr Calc Pharmacy 51.9 ml/min; Magnesium 1.9 mg/dl (1.7-2.4); Potassium 3.8 mmol/L (3.5-5.1)
--- NOTE | 2024-05-24 09:12 | Cardiology Progress Note ---
Date of Service May 24, 2024 Assessment & Plan (1) Immunosuppressed status: (2) Shingles rash: (3) Pneumonia: (4) Sinus tachycardia: (5) Premature atrial contractions: (6) Ventricular premature complexes: (7) ASCVD (arteriosclerotic cardiovascular disease): Plan Right-sided pneumonia. Vesicular rash consistent with shingles left neck, C2/3 dermatome distribution. Immunocompromise patient. As per Hospitalist. Sinus tachycardia with atrial and ventricular ectopy and short runs of paroxysmal atrial tachycardia. No atrial fibrillation/flutter. Continue the increased dose of metoprolol succinate, 50 mg BID. Elevated troponin, demand ischemia secondary to acute illness. Patient with known ASCVD. Asymptomatic. Continue medical management with aspirin, statin, beta-irlanda, and long acting nitrates (Imdur) Hypertension. Labile, likely aggravated by pain. Metoprolol increased this admission and Imdur resumed. Hold off on adding Losartan for now. Pain control as per Hospitalist. Dyslipidemia. Continue rosuvastatin 40 mg/day. Please contact with any cardiac questions or concerns. Admission and Anticipated Discharge Date Admission Date: May 21, 2024 Supervising Physician Co-Signing Physician Notes Patient was seen and personally examined. Chart, medications, telemetry reviewed. Full assessment and plan as outlined by advanced provider as above. Patient appears improved in comparison to day prior. More oriented. Pain better controlled. Heart rates trending lower after hydration. Still with rhonchorous cough attempting to clear secretions. No changes in recommendations Subjective Patient seen and examined. Chart, medications, telemetry reviewed. Son at bedside. Neck pain aided transiently with IV Tylenol, overall improving Cough with some difficulty expectorating green sputum. Appetite has improved. No longer nauseous. No chest pain or palpitations. Blood pressures labile, likely driven by pain. Review of Systems Review of Systems: Complete Review of Systems unable to be obtained, confusion Physical Exam Physical Exam: General: No acute distress. Skin: Vesicular rash anterolateral neck, C2/3 dermatome distribution. Neck: No JVD. Lungs: Scattered rhonchi. No wheeze. Cardiac: Irregular at 88 bpm. Grade I-II/ systolic murmur. Abdomen: +BS. Soft. Nontender. Extremities: Thin skin with diffuse ecchymosis. No cyanosis. Pulses: 1/4 Neuro: No focal deficit. Results & Data Vital Signs (Past 12 Hours) Vital Signs Temp Pulse Resp BP Pulse Ox O2 Del Method O2 Del Method 05/24/24 07:54 36.8 C 86 18 185/81 H 93 Room Air 05/24/24 03:00 36.6 C 86 16 139/88 91 Free Flow/Blow-by 05/24/24 00:00 Free Flow/Blow-by 05/23/24 23:06 36.8 C 91 H 16 148/70 H 93 Free Flow/Blow-by Laboratory Results CBC 05/24/24 Range/Units 07:33 WBC 9.56 (4.8-10.8) K/ul RBC 3.67 L (4.20-5.40) M/uL Hgb 10.8 L (12.0-16.0) g/dl Hct 33.9 L (37.0-47.0) % Plt Count 327 (130-400) K/uL Comprehensive Metabolic Panel 05/24/24 Range/Units 07:33 Sodium 138 (136-145) mmol/L Potassium 3.8 (3.5-5.1) mmol/L Chloride 108 H (98-107) mmol/L Carbon Dioxide 25 (21-32) mmol/L BUN 16 (6-23) mg/dl Creatinine 0.71 (0.6-1.2) mg/dl Glucose 117 H (70-99(Fasting)) mg/dl Calcium 8.6 (8.6-10.3) mg/dl Intake and Output 05/23/24 05/24/24 05/24/24 22:59 06:59 14:59 Intake Total 1734.667 / 3134.667 1200 / 3134.667 Output Total 1550 / 1550 Balance 184.667 / 5103.062 2016 / 1584.667 Intake: IV 914.667 / 2314.667 1200 / 2314.667 Acetaminophen 1,000 mg In 100 100 / 300 100 / 300 ml @ 400 mls/hr IV Q8H PRN Rx#: [id number] Lactated Ringer's 1,000 ml @ 80 714.667 / 714.667 mls/hr IV .[id number] PAULA Rx#: [id number] Piperacillin/Tazobactam 4.5 gm 100 / 300 100 / 300 In 100 ml @ 25 mls/hr IV Q8H PAULA Rx#:[id number] Sodium Chloride 0.9% 1,000 ml @ 1000 / 1000 80 mls/hr IV .[id number] PAULA Rx#: [id number] Oral 820 / 820 0 / 820 Output: Urine Amount (Catheter) 1550 / 1550 Straight 1550 / 1550 Other: Weight Measurement Method Built in [facility]
--- NOTE | 2024-05-24 10:13 | Hospitalist Progress Note ---
Date of Service May 24, 2024 Assessment & Plan (1) Sepsis due to pneumonia: (2) Acute respiratory failure with hypoxemia: (3) Sinus tachycardia: (4) Premature atrial contractions: (5) Paroxysmal atrial tachycardia: (6) Elevated troponin I level: (7) Shingles rash: (8) Hypertension: (9) ASCVD (arteriosclerotic cardiovascular disease): (10) AAA (abdominal aortic aneurysm) without rupture: (11) Hx of rheumatoid arthritis: (12) Opioid dependence: (13) Ambulatory dysfunction: Plan 89 year old female with PMH significant for bilateral severe carotid artery stenosis, AAA, HTN, dyslipidemia, diastolic CHF, CKD III, GERD, DDD, chronic back pain with opioid dependence, RA on Xeljanz, history of syncope, history of unsustained vtach s/p implanted loop recorder, history of shingles, and ambulatory dysfunction who presented to the ED for fever and cough. Sepsis secondary to pneumonia Acute respiratory failure with hypoxemia In the ED, she was found to be hypoxic and tachycardic and was initially thought to have new onset Afib with RVR. However, this has been ruled out CXR revealed a right sided infiltrate consistent with PNA. Met criteria for sepsis given tachycardia, tachypnea, and CXR demonstrating PNA on admission. Continue zosyn and zithromax Blood cultures negative so far Stop IVF Continue to encourage oral intake Start mucinex 600mg q12h Had higgins placed for some urinary retention (increased PVR) Monitor I/O Sinus tachycardia, PACs, PAT Elevated troponin Cardiology reviewed EKG and telemetry which revealed sinus tachycardia with frequent PACs and short runs of PAT, ruled out new onset Afib with RVR. Heart rate is controlled Continue increased metoprolol succinate 50mg BID Hypertension Continue Imdur Monitor Shingles rash Continue valacyclovir. Pain control Bilateral severe carotid artery stenosis Chronic, stable. Asymptomatic. Previously presented to the ED on 12/20/23 for confusion and had a neck CTA which revealed severe stenosis of the left ICA, 80- 90% stenosis of the distal LCCA, proximal left ICA and ECA and mild stenosis of the ISAIAH. She follows with [facility] (last seen 12/25/23) every 6 months. AAA Chronic, stable. Asymptomatic. She follows with [facility] (last seen 12/25/23) every 6 months. Dyslipidemia Chronic, stable. Continue statin. Rheumatoid arthritis Chronic, stable. Holding Xeljanz. GERD Chronic, stable. Continue famotodine. DVT Prophylaxis: subQ hep Code Status: DNR/DNI Encourage OOB/activity Continue PT/OT. Rehab recommended I spent a total of 50 minutes coordinating, documenting and providing care for this patient excluding time spent in performance of separately billed services Admission and Anticipated Discharge Date Admission Date: May 21, 2024 Subjective Patient seen and examined Reports feeling better today Not confused this AM Reports cough, occasionally productive Per son, oral intake is improving Reports tylenol is helping with neck pain Physical Exam Constitutional: + ill appearing; no acute distress Eyes: PERRL, conjunctivae normal, anicteric sclerae Respiratory: +cough, +crackles Cardiovascular: Rate/Rhythm: regular rate and regular rhythm Gastrointestinal (Abdomen): normal bowel sounds, soft, nontender, no hepatosplenomegaly Neurologic: PERRL, EOMI, accommodation nl, no face palsy, no dysarthria Psychiatric: Alert and oriented to person, place and month. Cooperative Genitourinary: Higgins in situ Results & Data Results & Data Vital Signs (Past 12 Hours) Vital Signs Temp Pulse Resp BP Pulse Ox O2 Del Method O2 Del Method 05/24/24 07:54 36.8 C 86 18 185/81 H 93 Room Air 05/24/24 03:00 36.6 C 86 16 139/88 91 Free Flow/Blow-by 05/24/24 00:00 Free Flow/Blow-by 05/23/24 23:06 36.8 C 91 H 16 148/70 H 93 Free Flow/Blow-by Laboratory Results Abnormal lab results 05/24/24 Range/Units 07:33 RBC 3.67 L (4.20-5.40) M/uL Hgb 10.8 L (12.0-16.0) g/dl Hct 33.9 L (37.0-47.0) % MCHC 31.9 L (32.0-36.0) g/dL RDW Std Deviation 51.3 H (36.4-46.3) fL RDW Coeff of Bryan 15.2 H (11.5-14.5) % Chloride 108 H (98-107) mmol/L BUN/Creatinine Ratio 22.5 H (10-20) Glucose 117 H (70-99(Fasting)) mg/dl
[2024-05-24] MEDS: guaiFENesin 600 MG TABCR PO SCH (12:01)
[2024-05-24] MEDS: POLYETHYLENE (MIRALAX) 17 GM PACK PO PRN (12:01)
[2024-05-24] MEDS: traMADol HCL 50 MG TABLET PO PRN (21:15)
[2024-05-25 07:04] LABS: Hematocrit (blood only) 32.1 % (37.0-47.0); Hemoglobin 10.3 g/dl (12.0-16.0); Mean Corpuscular Hemoglobin 29.7 pg (25.0-34.0); Mean Corpuscular Hgb Conc 32.1 g/dL (32.0-36.0); Mean Corpuscular Volume 92.5 fL (80.0-100.0); Mean Platelet Volume 9.5 fL (9.4-12.4); Platelet Count 321 K/uL (130-400); RDW Coefficient of Variation 15.4 % (11.5-14.5); RDW Standard Deviation 51.7 fL (36.4-46.3); Red Blood Count 3.47 M/uL (4.20-5.40); White Blood Count 8.34 K/ul (4.8-10.8)
[2024-05-25] MEDS: [UNRECOGNIZED DRUG - REMARK] SCH (07:49)
[2024-05-25 07:59] LABS: BUN Creatinine Ratio 19.4 (10-20); Calcium 8.7 mg/dl (8.6-10.3); Creatinine Clr Calc Pharmacy 55.7 ml/min; Magnesium 1.9 mg/dl (1.7-2.4); Potassium 3.5 mmol/L (3.5-5.1)
[2024-05-25] MEDS: BUPRENORPHINE 10 MCG/HR TDSY TD SCH (08:28)
[2024-05-25] MEDS: BUPRENORPHINE 5 MCG/HR TDSY TD SCH (08:29)
--- NOTE | 2024-05-25 10:14 | Hospitalist Progress Note ---
Date of Service May 25, 2024 Assessment & Plan (1) Sepsis due to pneumonia: (2) Acute respiratory failure with hypoxemia: (3) Sinus tachycardia: (4) Premature atrial contractions: (5) Paroxysmal atrial tachycardia: (6) Elevated troponin I level: (7) Shingles rash: (8) Hypertension: (9) ASCVD (arteriosclerotic cardiovascular disease): (10) AAA (abdominal aortic aneurysm) without rupture: (11) Hx of rheumatoid arthritis: (12) Opioid dependence: (13) Ambulatory dysfunction: Plan 89 year old female with PMH significant for bilateral severe carotid artery stenosis, AAA, HTN, dyslipidemia, diastolic CHF, CKD III, GERD, DDD, chronic back pain with opioid dependence, RA on Xeljanz, history of syncope, history of unsustained vtach s/p implanted loop recorder, history of shingles, and ambulatory dysfunction who presented to the ED yesterday for fever and cough. S he went to her PCP on 05/19 for URI symptoms and was prescribed doxycycline. In the ED, she was found to be hypoxic and tachycardic and initially thought to have new onset Afib with RVR. She was given a bolus and started on a cardizem drip. A CXR revealed a right sided infiltrate consistent with PNA. Her labs demonstrated negative leukocytosis, procalcitonin, and lactate. She had a negative viral panel. She was admitted for sepsis secondary to PNA and evaluation for possible new onset Afib. Sepsis secondary to pneumonia Acute respiratory failure with hypoxemia Patient met criteria for sepsis given tachycardia, tachypnea, and CXR demonstrating PNA on admission. Continue IV zosyn q8hr and PO azithromycin daily. Continue mucinex. Blood cultures negative so far. Remove higgins today and obtain PVR. Sinus tachycardia, PACs, PAT Elevated troponin Cardiology reviewed EKG and telemetry which revealed sinus tachycardia with frequent PACs and short runs of PAT, ruled out new onset Afib with RVR. Intermittent tachycardia. Continue increased metoprolol succinate 50mg bid. Monitor electrolytes. K 3.5 and Mag 1.9 this morning. KCl and Mag sulfate repletion today. Cardiology recommends K>4.0, Mag>2.0 Hypertension Intermittent hypertension. Continue Imdur 30mg daily. Shingles rash Improving. Continue valacyclovir. Continue IV tylenol PRN for pain. Bilateral severe carotid artery stenosis Chronic, stable. Asymptomatic. Previously presented to the ED on 12/20/23 for confusion and had a neck CTA which revealed severe stenosis of the left ICA, 80- 90% stenosis of the distal LCCA, proximal left ICA and ECA and mild stenosis of the ISAIAH. She follows with [facility] (last seen 12/25/23) every 6 months. AAA Chronic, stable. Asymptomatic. She follows with [facility] (last seen 12/25/23) every 6 months. Dyslipidemia Chronic, stable. Continue statin and aspirin. Rheumatoid arthritis Chronic, stable. Holding Xeljanz. GERD Chronic, stable. Continue famotodine. DVT Prophylaxis: subQ heparin Code Status: DNR/DNI PCP: Dr. Candice Mcnair, DO Disposition: Continue PT/OT. Continued rehab recommended at time of discharge. Lives at the [facility]. Patient seen in collaboration with Dr. Wood. Please see addendum. I spent a total of 50 minutes coordinating, documenting and providing care for this patient excluding time spent in the performance of separately billed services or time spent by another provider/QHP. Admission and Anticipated Discharge Date Admission Date: May 21, 2024 Supervising Physician Co-Signing Physician Notes Patient seen and examined Patient still has cough but feeling better Continue antibiotics, valacyclovir Off oxygen PT recommends rehab Encourage OOB Christo higgins Agree with findings and plans as detailed by Mary Ann URBAN Belen Dorsey is doing well this morning. She is complaining of a headache related to her rash that comes up the back of her head that is relieved by tylenol. She has a productive cough that she has a hard time expectorating. She denies chest pain, SOB, abdominal pain, N/V/D. She had a bowel movement this morning. Her son is present at the bedside with her. No concerns from nursing. Review of Systems Review of Systems: All systems reviewed & are unremarkable except as noted in HPI & below Physical Exam Physical Exam: VITALS: Reviewed. Tachycardic and hypertensive. GEN: Healthy appearing, well-developed female, NAD. PSYCH: Good Judgment. AOx3. Normal memory, mood, and affect. HEENT: Head NC/AT. Sclera white, conjunctiva pink. Nares without rhinorrhea. Nasal and oral mucosa pink. Neck: Supple with no masses. CV: Irregular rate and rhythm, no m/r/g. LUNGS: Rhonchi in posterior lung bases. ABD: Soft, NT/ND, NBS, no masses or organomegaly. SKIN: Warm, well perfused. Vesicular rash on left anterior neck without erythema. MSK: No deformities. EXT: No clubbing, cyanosis, or edema. NEURO: Ambulates with walker. Results & Data Results & Data Vital Signs (Past 12 Hours) Vital Signs Temp Pulse Pulse Resp BP Pulse Ox O2 Del Method 05/25/24 09:00 Room Air 05/25/24 08:10 37.1 C 112 H 18 157/96 H 92 Room Air 05/25/24 04:11 36.7 C 90 17 167/78 H 93 Room Air 05/25/24 00:00 05/24/24 22:48 36.7 C 83 18 168/84 H 92 Room Air O2 Del Method 05/25/24 09:00 05/25/24 08:10 05/25/24 04:11 05/25/24 00:00 Room Air 05/24/24 22:48 Laboratory Results Short CBC 05/25/24 Range/Units 06:44 WBC 8.34 (4.8-10.8) K/ul Hgb 10.3 L (12.0-16.0) g/dl Hct 32.1 L (37.0-47.0) % Plt Count 321 (130-400) K/uL BMP 05/25/24 06:44 Sodium 139 Potassium 3.5 Chloride 107 Carbon Dioxide 27 BUN 13 Creatinine 0.67 Glucose 106 H Calcium 8.7 I have independently reviewed and interpreted patient's labs including CBC and BMP. Medications Administered Current Inpatient Medications Ascorbic Acid (Ascorbic Acid 500 Mg Tab) 500 mg PO DAILY PAULA Stop: 06/21/24 08:59 Last Admin: 05/25/24 07:47 Dose: 500 mg Aspirin (Aspirin 81 Mg Ectab) 81 mg PO DAILY PAULA Stop: 06/21/24 08:59 Last Admin: 05/25/24 07:45 Dose: 81 mg Azithromycin (Azithromycin 250 Mg Tab) 500 mg PO HS PAULA Stop: 05/27/24 20:59 Last Admin: 05/24/24 21:16 Dose: 500 mg Buprenorphine HCl (Buprenorphine 10 Mcg/Hr Tdsy) 1 patch TD Mo@0900 PAULA Stop: 06/24/24 08:59 Last Admin: 05/25/24 08:28 Dose: 1 patch Buprenorphine HCl (Buprenorphine 5 Mcg/Hr Tdsy) 1 patch TD Mo@0900 [facility] Stop: 06/24/24 08:59 Last Admin: 05/25/24 08:29 Dose: 1 patch Calcium/Vitamin D (Calcium 600mg + Vit D 400 Iu Tab) 1 tab PO DAILY PAULA Stop: 06/21/24 08:59 Last Admin: 05/25/24 07:46 Dose: 1 tab Dicyclomine HCl (Dicyclomine Hcl 10 Mg Cap) 10 mg PO BID PRN PRN Reason: Abdominal Pain Stop: 06/21/24 00:26 Docusate Sodium (Docusate Sodium 100 Mg Cap) 100 mg PO BID PRN PRN Reason: Constipation Stop: 06/21/24 00:26 Famotidine (Famotidine 20 Mg Tab) 20 mg PO DAILY [facility] Stop: 06/21/24 08:59 Last Admin: 05/25/24 07:50 Dose: 20 mg Fish Oil ([place]-3 (Purified Fish Oil) 1 Gm Cap) 1 cap PO DAILY PAULA Stop: 06/21/24 08:59 Last Admin: 05/25/24 07:46 Dose: 1 cap Furosemide (Furosemide 20 Mg Tab) 20 mg PO MoWeFr@0900 [facility] Stop: 06/21/24 08:59 Last Admin: 05/25/24 07:47 Dose: 20 mg Gabapentin (Gabapentin 300 Mg Cap) 300 mg PO BID [facility] Stop: 06/21/24 08:59 Last Admin: 05/25/24 07:46 Dose: 300 mg Guaifenesin (Guaifenesin 600 Mg Tabcr) 600 mg PO Q12 PAULA Stop: 06/23/24 10:14 Last Admin: 05/25/24 07:48 Dose: 600 mg Heparin Sodium (Porcine) (Heparin Sod 5,000 Unit/0.5 Ml Vial) 5,000 units SQ Q8 [facility] Stop: 06/21/24 13:59 Last Admin: 05/25/24 06:04 Dose: 5,000 units Piperacillin Sod/Tazobactam Sod (Zosyn) 4.5 gm in 100 mls @ 25 mls/hr IV Q8H [facility]; Protocol Stop: 05/27/24 00:59 Last Admin: 05/25/24 07:42 Dose: 25 mls/hr Acetaminophen (Ofirmev) 1,000 mg in 100 mls @ 400 mls/hr IV Q8H PRN PRN Reason: Pain Stop: 05/26/24 08:58 Last Infusion: 05/25/24 09:00 Dose: Infused Isosorbide Mononitrate (Isosorbide [place] Extended Rel 30 Mg Tabcr) 30 mg PO QAM PAULA Stop: 06/21/24 09:44 Last Admin: 05/25/24 07:47 Dose: 30 mg Lidocaine (Lidocaine 5% 1 Patch) 1 patch TD DAILY@2100 [facility] Stop: 06/21/24 20:14 Last Admin: 05/24/24 21:21 Dose: Not Given Melatonin (Melatonin 3 Mg Tab) 6 mg PO HS PRN PRN Reason: Insomnia Stop: 06/21/24 00:26 Last Admin: 05/24/24 21:16 Dose: 6 mg Metoprolol Succinate (Metoprolol Succ 50mg Ext Rel Tab) 50 mg PO BID [facility] Stop: 06/22/24 08:59 Last Admin: 05/25/24 07:46 Dose: 50 mg Metoprolol Tartrate (Metoprolol Tartrate 1 Mg/Ml Vial) 5 mg IV Q6 PRN PRN Reason: Tachycardia Stop: 06/21/24 00:26 Last Admin: 05/22/24 16:35 Dose: 5 mg Miscellaneous (10 Mcg Patch: Remove & Waste Butrans Patch 1 Ea Ea) 1 each N/A Mo@0859 [facility] Stop: 07/01/24 08:58 Miscellaneous (5 Mcg Patch: Remove & Waste Butrans Patch 1 Ea Ea) 1 each N/A Mo@0859 [facility] Stop: 06/01/24 09:00 Miscellaneous (10 Mcg Patch: Check Buprenorphine Patch) 1 each N/A QS [facility] Stop: 06/24/24 15:59 Miscellaneous (5 Mcg Patch: Check Buprenorphine Patch) 1 each N/A QS [facility] Stop: 06/24/24 15:59 Miscellaneous (Remove Lidoderm Patch) 1 each N/A DAILY [facility] Stop: 06/22/24 20:59 Last Admin: 05/25/24 07:45 Dose: Not Given Nitroglycerin (Nitroglycerin Sl 0.4 Mg/Tab Tab) 0.4 mg SL Q5M PRN PRN Reason: Chest Pain Stop: 06/21/24 00:26 Ondansetron HCl (Ondansetron Inj 2 Mg/Ml 2 Ml Vial) 4 mg IV Q6H PRN PRN Reason: Nausea Stop: 06/21/24 00:26 Polyethylene Glycol (Polyethylene (Miralax) 17 Gm Pack) 17 gm PO DAILY PRN PRN Reason: Constipation Stop: 06/21/24 00:26 Last Admin: 05/24/24 12:01 Dose: 17 gm Rosuvastatin Calcium (Rosuvastatin Calcium 20 Mg Tab) 40 mg PO DAILY PAULA Stop: 06/21/24 08:59 Last Admin: 05/25/24 07:45 Dose: 40 mg Simethicone (Simethicone 80 Mg Chew) 80 mg PO Q6H PRN PRN Reason: Gastrointestinal Spasms Or Cramping Stop: 06/21/24 00:26 Tramadol HCl (Tramadol Hcl 50 Mg Tablet) 25 mg PO BID PRN PRN Reason: Pain Stop: 06/21/24 00:26 Last Admin: 05/24/24 21:15 Dose: 25 mg Valacyclovir HCl (Valacyclovir Hcl 500 Mg Tablet) 1,000 mg PO BID PAUL[facility] Stop: 05/29/24 08:59 Last Admin: 05/25/24 07:44 Dose: 1,000 mg Vitamin D (Cholecalciferol 25 Mcg (1000 Units) Tab) 25 mcg PO DAILY PAULA Stop: 06/21/24 08:59 Last Admin: 05/25/24 07:47 Dose: 25 mcg
[2024-05-25] MEDS: SIMETHICONE 80 MG CHEW PO PRN (11:19)
--- NOTE | 2024-05-25 12:35 | Cardiology Progress Note ---
Date of Service May 25, 2024 Assessment & Plan (1) Immunosuppressed status: (2) Shingles rash: (3) Pneumonia: (4) Sinus tachycardia: (5) Premature atrial contractions: (6) Ventricular premature complexes: (7) ASCVD (arteriosclerotic cardiovascular disease): Plan Frequent premature atrial complexes with short runs of atrial tachycardia on telemetry. Patient asymptomatic. Metoprolol titrated to 50 mg twice daily during hospitalization. Continue current dose. Continue medical management of underlying ischemic heart disease with aspirin, statin, and long-acting nitrates. Blood pressure remains labile, however, adequately controlled. No med changes at this time. Supplement potassium and magnesium as indicated. Recommend maintaining serum potassium gradient then 4.0, and serum magnesium greater than 2.0. Encourage patient to improve caloric intake and oral hydration. Admission and Anticipated Discharge Date Admission Date: May 21, 2024 Subjective 89-year-old female seen examined the bedside. Rhonchorous cough noted. Answering questions appropriately. Denies chest pain or shortness of breath. Admits to poor appetite and diarrhea this morning. Telemetry revealing frequent PACs and short runs of atrial tachycardia. and son present at bedside. Offer no additional concerns/complaints. Review of Systems Review of Systems: All systems reviewed & are unremarkable except as noted in Subjective Physical Exam Constitutional: well nourished; no acute distress Respiratory: no respiratory distress and no labored breathing Auscultation: + rhonchi; no wheezes Cardiovascular: Rate/Rhythm: regular rate and regular rhythm Heart Sounds: normal S1, normal S2 and + murmur (1/6 systolic murmur) Vessels: no JVD Extremities: no edema (Diffuse lower extremity ecchymosis) Gastrointestinal (Abdomen): Inspection/Auscultation: abdomen normal to inspection Percussion/Palpation: abdomen nontender and no guarding Neurologic: CN's II-XI intact bilaterally and moves all extremities; no focal motor deficits Results & Data Vital Signs (Past 12 Hours) Vital Signs Temp Pulse Pulse Resp BP Pulse Ox O2 Del Method 05/25/24 11:00 37.2 C 104 H 18 128/67 92 Room Air 05/25/24 09:00 Room Air 05/25/24 08:10 37.1 C 112 H 18 157/96 H 92 Room Air 05/25/24 04:11 36.7 C 90 17 167/78 H 93 Room Air Laboratory Results CBC 05/25/24 Range/Units 06:44 WBC 8.34 (4.8-10.8) K/ul RBC 3.47 L (4.20-5.40) M/uL Hgb 10.3 L (12.0-16.0) g/dl Hct 32.1 L (37.0-47.0) % Plt Count 321 (130-400) K/uL Comprehensive Metabolic Panel 05/25/24 Range/Units 06:44 Sodium 139 (136-145) mmol/L Potassium 3.5 (3.5-5.1) mmol/L Chloride 107 (98-107) mmol/L Carbon Dioxide 27 (21-32) mmol/L BUN 13 (6-23) mg/dl Creatinine 0.67 (0.6-1.2) mg/dl Glucose 106 H (70-99(Fasting)) mg/dl Calcium 8.7 (8.6-10.3) mg/dl Intake and Output 05/24/24 05/25/24 05/25/24 22:59 06:59 14:59 Intake Total 400 / 1965.333 100 / 1965.333 200 / 200 Output Total 300 / 1700 700 / 1700 Balance 100 / 265.333 -600 / 265.333 200 / 200 Intake: IV 200 / 925.333 100 / 925.333 200 / 200 Acetaminophen 1,000 mg In 100 100 / 200 100 / 100 ml @ 400 mls/hr IV Q8H PRN Rx#: [id number] Piperacillin/Tazobactam 4.5 gm 100 / 300 100 / 300 100 / 100 In 100 ml @ 25 mls/hr IV Q8H PAULA Rx#:[id number] Oral 200 / 1040 Output: Urine Amount (Catheter) 300 / 1700 700 / 1700 Kinney/Indwelling 300 / 1000 700 / 1000 Other: Other Intake Source sips Weight 70 kg Weight Measurement Method Built in [facility]
[2024-05-25] MEDS: POTASSIUM CHLORIDE CRTAB 20 MEQ TABCR PO STA (12:52)
[2024-05-25] MEDS: MAGNESIUM SULFATE / D5W 1 GM/100 ML BAG IV SCH (12:52)
[2024-05-25] MEDS: NYSTATIN SUSP 500,000 U/5 ML UDC PO SCH (13:44)
[2024-05-25] MEDS: [UNRECOGNIZED DRUG - REMARK] SCH (15:09)
[2024-05-25] MEDS: [UNRECOGNIZED DRUG - REMARK] SCH (15:09)
[2024-05-25] MEDS: ONDANSETRON INJ 2 MG/ML 2 ML VIAL IV PRN (23:40)
[2024-05-26] MEDS ORDERED: Nursing to Pharmacy Communication SCH (07:15)
[2024-05-26 07:43] LABS: Hemoglobin 10.8 g/dl (12.0-16.0); Mean Corpuscular Hemoglobin 30.1 pg (25.0-34.0); Mean Corpuscular Hgb Conc 32.7 g/dL (32.0-36.0); Mean Corpuscular Volume 91.9 fL (80.0-100.0); Mean Platelet Volume 9.5 fL (9.4-12.4); Nucleated RBC # (auto) 0.03 K/uL (0.00-0.12); Nucleated RBC % (auto) 0.4 %; Platelet Count 388 K/uL (130-400); RDW Coefficient of Variation 15.4 % (11.5-14.5); RDW Standard Deviation 51.8 fL (36.4-46.3); Red Blood Count 3.59 M/uL (4.20-5.40); White Blood Count 8.14 K/ul (4.8-10.8)
[2024-05-26 08:03] LABS: BUN Creatinine Ratio 17.8 (10-20); Creatinine Clr Calc Pharmacy 50.3 ml/min; Magnesium 2.3 mg/dl (1.7-2.4); Potassium 3.9 mmol/L (3.5-5.1)
[2024-05-26] MEDS: BUPRENORPHINE 10 MCG/HR TDSY TD SCH (08:47)
[2024-05-26] MEDS: BUPRENORPHINE 5 MCG/HR TDSY TD SCH (08:47)
[2024-05-26] MEDS: POTASSIUM CHLORIDE CRTAB 20 MEQ TABCR PO STA (08:48)
[2024-05-26] MEDS: DICLOFENAC SOD 1% GEL 100 GM TUBE EXT SCH (10:54)
--- NOTE | 2024-05-26 12:20 | Discharge Summary ---
Discharge Summary Date of Service May 26, 2024 Principal Dx & Hospital Course #1 = Principal Diagnosis (1) Sepsis due to pneumonia: (2) Acute respiratory failure with hypoxemia: (3) Sinus tachycardia: (4) Premature atrial contractions: (5) Paroxysmal atrial tachycardia: (6) Elevated troponin I level: (7) Acute urinary retention: (8) Hypertension: (9) Shingles rash: (10) ASCVD (arteriosclerotic cardiovascular disease): (11) AAA (abdominal aortic aneurysm) without rupture: (12) Hx of rheumatoid arthritis: (13) Opioid dependence: (14) Ambulatory dysfunction: Plan 89 year old female with PMH significant for bilateral severe carotid artery stenosis, AAA, HTN, dyslipidemia, diastolic CHF, CKD III, GERD, DDD, chronic back pain with opioid dependence, RA on Xeljanz, history of syncope, history of unsustained vtach s/p implanted loop recorder, history of shingles, and ambulatory dysfunction who presented to the ED yesterday for fever and cough. She went to her PCP on 05/19 for URI symptoms and was prescribed doxycycline. In the ED, she was found to be hypoxic and tachycardic and initially thought to have new onset Afib with RVR. She was given a bolus and started on a cardizem drip. A CXR revealed a right sided infiltrate consistent with PNA. Her labs demonstrated negative leukocytosis, procalcitonin, and lactate. She had a negative viral panel. She was admitted for sepsis secondary to PNA and evaluation for possible new onset Afib. Sepsis secondary to pneumonia Acute respiratory failure with hypoxemia Patient met criteria for sepsis given tachycardia, tachypnea, and CXR dem onstrating PNA on admission. Blood cultures negative to date. Treated with IV zosyn and PO azithromycin for five days. May continue to take mucinex as needed for productive cough. Sinus tachycardia, PACs, PAT Elevated troponin Cardiology reviewed EKG and telemetry which revealed sinus tachycardia with frequent PACs and short runs of PAT, ruled out new onset Afib with RVR. Cardiology recommended increasing metoprolol succinate from 25mg bid to 50mg bid. Cardiology recommended K>4.0, Mag>2.0. Mag this AM was 2.3 after IV repletion on 05/25 and K this AM was 2.9 prior to PO repletion of 20meq. Acute urinary retention New onset urinary retention with higgins placement on 05/23 until 05/25. After removal of higgins, PVR of 166mL. Needed straight cath the night of 05/25. On 05/26, PVR of 356mL. Urology consulted and recommended re-placement of higgins catheter prior to discharge and follow up with Urology outpatient for further management. Hypertension Cardiology recommended restarting Imdur 30mg daily. Shingles rash Continue valacyclovir 1,000mg bid until 06/02. May take tylenol 500mg q6hr PRN for pain. Bilateral severe carotid artery stenosis Asymptomatic and stable. Previously presented to the ED on 12/20/23 for confusion and had a neck CTA which revealed severe stenosis of the left ICA, 80- 90% stenosis of the distal LCCA, proximal left ICA and ECA and mild stenosis of the ISAIAH. Follows with [facility] (last seen 12/25/23) every 6 months. AAA Asymptomatic and stable. Follows with [facility] (last seen 12/25/23) every 6 months. Dyslipidemia Continue statin and aspirin per home dosing. Rheumatoid arthritis May resume Xeljanz per home dosing. GERD Continue famotodine per home dosing. Notes For Next Care Provider 89 year old female admitted for sepsis secondary to pneumonia with acute hypoxemic respiratory failure and sinus tachycardia with PACs and PAT. Pneumonia was treated with five days of antibiotics. Cardiology was consulted and recommended medication changes as above. Patient experienced acute urinary retention during hospitalization. Urology was consulted and recommended discharge with higgins catheter and outpatient follow up. Patient also had shingles on admission and will need to complete course of valacyclovir. Medication Changes From Visit Metoprolol succinate increased from 25mg bid to 50mg bid. Imdur 30mg daily. Valacyclovir 1,000mg bid. Admission HPI Per Admitting Provider 89-year-old female with past medical history significant for CAD status post stent, abdominal aortic aneurysm, dyslipidemia, pancreatic cyst, hypertension, history of syncope in May 2017, nonsustained ventricular tachycardia on event monitor, history of COVID pneumonitis, history of falls, history of chronic rheumatoid arthritis on immunosuppressive therapy, history of lumbar laminectomy, ambulatory dysfunction uses wheelchair, leg weakness, history of lower leg cellulitis, history of bilateral carotid artery stenosis, chronic c onstipation, GERD, CKD stage III, osteoarthritis, compression fracture of T12 vertebrae, migraines, history of s/p placement of implantable loop recorder, opioid dependence comes from [facility] for confusion, cough and shortness of breath. Patient was having shortness of breath and cough for few days saw PCP on 05/19/2024 and was prescribed doxycycline. As per son patient started taking doxycycline since yesterday. Tonight she seemed more confused and more short of breath and could not able to cough. Was having fever. In the ER she was having temp spike and tachycardia and rapid A-fib. With the Cardizem currently patient converted back to sinus rhythm. Patient says she has some chest pain earlier but that got resolved now. Denies any headache. Vision is okay. No runny nose or sore throat. No nausea. Denies abdominal pain. Normal bowel and bladder movements. Denies any blood in the stools or hematuria. Feeling weak. Could tell her history. Knows that she in the hospital. Knows current year but not accurate with the month. Patient has a feeling lump like in the throat and neck regions before starting doxycycline and when son saw her today at 11 AM there was no rash but currently she has some blebs in the throat region and the erythematous rash extending into the left side of the neck behind the ear and into the scalp. She says she has some itchiness of the rash region. Denies any pain. Patient has history of shingles in the past. Patient was seen in the hospital in January 2024 with sepsis, UTI, right upper lobe pneumonia and acute on chronic diastolic CHF and ambulatory dysfunction and right leg weakness. During that admission she was found to have moderate to severe multilevel degenerative disc disease. She followed with orthospine at [place] and no surgery is planned. And last admit she was treated with Augmentin for, strep UTI. She also found to have infrarenal abdominal aortic aneurysm 4.5 cm and also CTA neck with severe stenosis of left ICA 80-90 for stenosis of distal left CCA and proximal left ICA and ECA. Son says there is no plan for any procedures. Past medical history. As mentioned above Past surgical history. Colonoscopy. Left heart catheterization. EGD. EGD with endoscopic ultrasound. Insertion of peripheral gastric neurostimulator, knee arthroscopy, ligation of oviducts, lumbar hemilaminectomy, right cataract, tonsillectomy adenoidectomy, repair of bladder and vaginal cystocele, right shoulder arthroscopy, vaginal hysterectomy Social history. . Quit smoking in 1975. Smoked 1 pack a day for 20 years. Alcohol glass of wine. No drug use. Family history. Mother had diabetes. Father had MO. Brother had MO. Son had renal cancer. Admission Exam Per Admitting Provider General- Not in distress Head- atraumatic Eyes- PERRL. ENT- oropharynx clear Neck- supple, no JVD. Lungs- clear to auscultation no wheezing or crackles Heart- regular rhythm; no murmur, no gallop. Abdomen- normal bowel sounds, soft, nontender, no distension Extremities- no pretibial edema, chronic skin changes seen in lower extremity. Neuro- alert, oriented x 3; PERRL, no facial palsy; no dysarthria; moves extremities Skin. Erythematous rash with blebs seen in the throat region, rash extending to the back of left ear to scalp. Discharge Exam VITALS: Reviewed and VSS. GEN: Healthy appearing, well-developed female, NAD. PSYCH: Good Judgment. AOx3. Normal memory, mood, and affect. HEENT: Head NC/AT. Sclera white, conjunctiva pink. Nares without rhinorrhea. Nasal and oral mucosa pink. Neck: Supple with no masses. CV: Irregular rate and rhythm, no m/r/g. LUNGS: Rhonchi in posterior lung bases. ABD: Soft, NT/ND, NBS, no masses or organomegaly. SKIN: Warm, well perfused. Vesicular rash on left anterior neck without erythema. MSK: No deformities. EXT: No clubbing, cyanosis, or edema. NEURO: Ambulates with walker. Updated Medication List Medication Instructions Recorded Confirmed Type ascorbic acid (vitamin C) 500 mg 500 mg PO DAILY 05/21/24 05/21/24 History tablet (Vitamin C) aspirin 81 mg tablet,delayed 81 mg PO DAILY 05/21/24 05/21/24 History release buprenorphine 15 mcg/hour weekly 15 patch topical UD 05/21/24 05/21/24 History transdermal patch calcium 500 mg (as 1 tab PO DAILY 05/21/24 05/21/24 History carbonate)-vitamin D3 5 mcg (200 unit) tablet (Oyster Shell Calcium-Vitamin D3) cholecalciferol (vitamin D3) 25 25 mcg PO DAILY 05/21/24 05/21/24 History mcg (1,000 unit) capsule (Vitamin D3) colesevelam 625 mg tablet 625 mg PO BID 05/21/24 05/21/24 History dicyclomine 10 mg capsule 10 mg PO BID PRN Abdominal Pain 05/21/24 05/21/24 History docusate sodium 100 mg capsule 100 mg PO BID PRN Constipation 05/21/24 05/21/24 History (Colace) doxycycline hyclate 100 mg capsule 100 mg PO BID 05/21/24 05/21/24 History famotidine 20 mg tablet 20 mg PO DAILY 05/21/24 05/21/24 History furosemide 20 mg tablet 20 mg PO UD 05/21/24 05/21/24 History gabapentin 300 mg capsule 300 mg PO BID 05/21/24 05/21/24 History melatonin 3 mg tablet 6 mg PO HS PRN Insomnia 05/21/24 05/21/24 History metoprolol succinate 25 mg 25 mg PO BID 05/21/24 05/21/24 History tablet,extended release 24 hr bldunmwq-[id number]- 250 mg-dha 90 1 cap PO DAILY 05/21/24 05/21/24 History mg-epa 160 [id number]-ynic-[id number] capsule (Ocuvite Adult 50 Plus) polyethylene glycol 3350 17 gram 17 g PO DAILY 05/21/24 05/21/24 History oral powder packet (Miralax) rosuvastatin 40 mg tablet 40 mg PO DAILY 05/21/24 05/21/24 History simethicone 80 mg chewable tablet 80 mg PO Q6H PRN Gastrointestinal 05/21/24 05/21/24 History Spasms Or Cramping tofacitinib 11 mg tablet,extended 11 mg PO DAILY 05/21/24 05/21/24 History release 24 hr (Xeljanz XR) tramadol 50 mg tablet 25 mg PO BID PRN Pain 05/21/24 05/21/24 History triamcinolone acetonide 0.1 % 1 applic topical BID PRN Rash 05/21/24 05/21/24 History topical cream Hospital Stay Data Consultations 05/21/24 20:33 ED Decision to Admit Stat 05/22/24 08:00 Consult Cardiology Routine 05/26/24 09:37 Consult Urology Routine Diagnostic Imagining Performed Chest X-Ray 05/21/24 16:51 EXAM: Portable AP chest radiograph TECHNIQUE: AP portable radiograph of the chest was obtained. INDICATION: Shortness of breath. Comparison: Chest radiograph January 04, 2024 FINDINGS: LINES and TUBES: Loop recorder/leadless pacemaker. CARDIOVASCULAR: Cardiac silhouette is stably enlarged in size. LUNGS/PLEURA: Mild pulmonary vascular congestion. New pulmonary infiltrates in the right lung base. Left perihilar scarring. No significant pleural fluid. No discernible pneumothorax. OSSEOUS/OTHER: No displaced acute osseous process identified. 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 IMPRESSION: New infiltrates in the right lung base consistent with pneumonia. Recommended chest radiograph follow-up in 4-6 weeks after appropriate treatment to ensure resolution. Electronically signed by Antwan Lloyd 05-21-2024 5:22 PM Chest CTA 05/21/24 22:25 EXAM: CT angio chest PE protocol CLINICAL HISTORY: PE TECHNIQUE: CT angiography of the chest was performed with and without intravenous contrast with the following protocol: axial images with, reconstructed coronal and sagittal images. Non-contrast images were initially acquired, followed by contrast-enhanced images in arterial and venous phases. Intravenous contrast 118 ml optiray 320 was administered using automated injection techniques. Bolus tracking was employed to optimize arterial phase imaging. One of these 3D techniques was utilized: Maximum Intensity Pixel (MIP), 3D Reconstructed Images, Volume Rendered Images, Surface Shaded Rendering. One of the following dose reduction techniques was utilized for this exam: Automated exposure control, adjustment of the mA and/or kV according to patient size, and use of iterative reconstruction. COMPARISON: 10/27/2020 FINDINGS: Aorta and Great Vessels: Ascending Aorta: Normal in caliber, no aneurysm, dissection, or significant atherosclerosis. Aortic Arch: Normal in caliber, no aneurysm, dissection, or significant atherosclerosis. Descending Aorta: Normal in caliber, no aneurysm, dissection, or significant atherosclerosis. Pulmonary Arteries: The main pulmonary artery and its branches are patent. No evidence of pulmonary embolism or significant stenosis. Heart: Cardiac Chambers: Normal in size. No evidence of cardiomegaly. Pericardium: No pericardial effusion or thickening. Suggestion of leadless pacemaker in the chest wall Lungs and Pleura: Multifocal areas of ground glass densities with interlobular septal thickening and nodular opacities are noted involving both lung medina. There is a right lower lobe confluenting consolidation. There is trace of right effusion. Mediastinum: No mediastinal mass or abnormal lymphadenopathy. Normal appearance of the trachea and central bronchi. Hilar Structures: Hilar structures are normal without enlargement. Chest Wall: No mass lesions or abnormalities in the chest wall. Vascular Structures: Superior Vena Cava: Patent without evidence of stenosis or thrombus. Inferior Vena Cava: Patent without evidence of stenosis or thrombus. Upper abdomen: The sections from upper abdomen demonstrate a rounded fluid attenuating area measuring 2.0 x 1.8 cm with peripheral rim of calcification is seen in close proximity to the mid body of pancreas. Mild left-sided perinephric fat stranding. Bones and Soft Tissues: Age-indeterminate fracture of the right 12th rib is noted. Age-indeterminate fractures of T12 and L1 vertebral bodies is noted with loss of more than 50% vertebral body heights. No retropulsion or retrolisthesis is appreciated. Multilevel moderate thoracic degenerative changes. Mild degenerative changes at both shoulder joints. Patient is s/p right shoulder arthroplasty. Soft tissues are unremarkable. IMPRESSION: 1. Scattered areas of ground glass density with interlobular septal thickening and nodular opacities are seen. 2. Right lower lobe airspace confluent in consolidation with trace of right pleural effusion, interval new finding. 3. The constellation of findings suggests acute on chronic infective etiology when compared to prior study. Recommend clinical correlation and follow-up. 4. Fluid attenuating lesion is noted in close in addition to body of pancreas, not appreciated on prior. Further assessment with enhanced CT abdomen is recommended. 5. Age-indeterminant fracture of right 12th rib, T12 and L1 vertebral bodies. Electronically signed by Alan Pineda 05-22-2024 01:21 AM Abdomen/Pelvis CT 05/22/24 11:51 CT OF THE ABDOMEN AND PELVIS WITHOUT CONTRAST CLINICAL HISTORY: re-evaluate pancreas, follow up from CT chest COMPARISON STUDY: Chest CT May 21, 2024. CT of the abdomen and pelvis November 22, 2023. TECHNIQUE: Axial images of the abdomen and pelvis were obtained without IV contrast. Images were reviewed in the axial, sagittal, and coronal planes. Automated exposure control was utilized for the study. A dose lowering technique was utilized adhering to the principles of ALARA. FINDINGS: Scattered alveolar opacities within the lower lungs are noted. Secretions within lower lobe bronchi are present. There is no pneumatosis, free air or portal venous gas. Incidental note is made of excreted contrast from recent contrast-enhanced CT. A 4.7 cm infrarenal abdominal aortic aneurysm has slightly increased in caliber since CT of November 22, 2023 when it measured 4.4 cm. There is no evidence for rupture. There is extensive aortoiliac atherosclerotic plaque. There is no evidence for a bowel obstruction. Note is made of colonic diverticulosis without evidence for acute diverticulitis. No biliary or pancreatic ductal dilatation is present. Unenhanced images of the liver, spleen and adrenal glands are unremarkable. A cystic 2.4 cm pancreatic body lesion on image [address] of November 22, 2023. This contains peripheral/dependent calcifications. Although suboptimally assessed on unenhanced exam, no solid component is identified. Pancreatic glandular atrophy is unchanged. There is no lymphadenopathy. Old compression fractures of T12-L4 are unchanged. There are stable findings following L2-L4 decompression and fusion. No acute lumbar spine, pelvic or hip fractures are identified. IMPRESSION: 1. 2.4 cm cystic pancreatic body lesion which is unchanged since CT of November 22, 2023. Although suboptimally assessed on unenhanced exam, this is low suspicion and may represent a side branch IPMN. No pancreatic ductal dilatation. 2. Slight increase in caliber of a 4.7 cm infrarenal abdominal aortic aneurysm. No rupture. 3. Alveolar opacities within the lower lungs which favor pneumonia or aspiration pneumonitis. 4. No bowel obstruction. ACT 112: Negative or not required by law. Electronically signed by: Freddy Rivera M.D. 05/22/2024 1:12 PM Pending Results Patient Have Any Pending Studies at Discharge: No Discharge Instructions Given to Patient (Per Discharging Provider) You were admitted to the hospital for pneumonia and fast heart rate. Your pneumonia was treated with IV antibiotics, oxygen, mucinex, and breathing exercises. Cardiology was consulted for your fast heart rate and determined that you had sinus tachycardia with premature atrial contractions, NOT atrial fibrillation. We increased your metoprolol dose and monitored your electrolytes while you were in the hospital. You also had high blood pressures in the hospital and we started you back on imdur. You also had shingles on your left neck and head region. We treated you with valacyclovir and tylenol as needed for the pain. You experienced some urinary retention while in the hospital. We placed a higgins catheter for a short time and consulted urology. Urology recommended placing a higgins catheter again and they will set up a follow up visit with you. MEDICATION CHANGES: We increased your metoprolol dose from 25mg bid to 50mg bid. We started you on imdur 30mg daily. You will continue taking valacyclovir 1,000mg bid until June 02. SUMMARY OF TEST RESULTS: See above PENDING TEST RESULTS: None RECOMMENDATIONS FOR FOLLOW-UP: Please follow up with your PCP after hospitalization. Please follow up with Cardiology. Please follow up with Urology regarding the higgins catheter. OTHER INSTRUCTIONS: Seek medical attention if you have: * temperature above 101 * chest pain or trouble breathing * abdominal pain, nausea, vomiting * diarrhea, dark stools or bloody stools * any unanswered questions or concerns Call 911 if symptoms are severe. It has been a pleasure taking care of you. Please take care of yourself. If you have any questions regarding your recent hospitalization please contact [facility] and request Wilman Malave @ [phone]. Total Time Total Time Spent Total Time Spent (In Minutes): I spent a total of 35 minutes coordinating, documenting and providing care for this patient excluding time spent in the performance of separately billed services or time spent by another provider/QHP.
--- NOTE | 2024-05-26 13:20 | Cardiology Progress Note ---
Date of Service May 26, 2024 Assessment & Plan (1) Immunosuppressed status: (2) Shingles rash: (3) Pneumonia: (4) Sinus tachycardia: (5) Premature atrial contractions: (6) Ventricular premature complexes: (7) ASCVD (arteriosclerotic cardiovascular disease): Plan Frequent premature atrial complexes with occasional short runs of atrial tachycardia on telemetry. Patient asymptomatic. Recommendations: * Continue metoprolol 50mg twice daily. * Continue medical management of underlying ischemic heart disease with aspirin, statin, and long-acting nitrates. * Blood pressure remains labile, however, adequately controlled. * Continue furosemide 20 mg on Saturday, Saturday, and Saturday only. * Supplement potassium and magnesium as indicated. * Maintain serum potassium gradient than 4.0, and serum magnesium greater than 2.0. * Encourage patient to improve caloric intake and oral hydration. * Cardiology will sign off, please call with additional concerns/questions. Admission and Anticipated Discharge Date Admission Date: May 21, 2024 Review of Systems Review of Systems: All systems reviewed & are unremarkable except as noted in Subjective Physical Exam Constitutional: well nourished; no acute distress Respiratory: no respiratory distress and no labored breathing Auscultation: + rhonchi; no wheezes Cardiovascular: Rate/Rhythm: regular rate and regular rhythm Heart Sounds: normal S1, normal S2 and + murmur (1/6 systolic murmur) Vessels: no JVD Extremities: no edema (Diffuse lower extremity ecchymosis) Gastrointestinal (Abdomen): Inspection/Auscultation: abdomen normal to inspection Percussion/Palpation: abdomen nontender and no guarding Neurologic: CN's II-XI intact bilaterally and moves all extremities; no focal motor deficits Results & Data Vital Signs (Past 12 Hours) Vital Signs Temp Pulse Pulse Resp BP Pulse Ox O2 Del Method 05/26/24 11:43 36.9 C 79 18 132/79 93 Room Air 05/26/24 09:24 147/74 H 05/26/24 09:00 Room Air 05/26/24 09:00 89 05/26/24 07:51 37.3 C 62 20 198/81 H 94 Room Air 05/26/24 02:44 36.6 C 87 18 144/75 H 93 Room Air Laboratory Results CBC 05/26/24 Range/Units 07:22 WBC 8.14 (4.8-10.8) K/ul RBC 3.59 L (4.20-5.40) M/uL Hgb 10.8 L (12.0-16.0) g/dl Hct 33.0 L (37.0-47.0) % Plt Count 388 (130-400) K/uL Comprehensive Metabolic Panel 05/26/24 Range/Units 07:22 Sodium 139 (136-145) mmol/L Potassium 3.9 (3.5-5.1) mmol/L Chloride 106 (98-107) mmol/L Carbon Dioxide 25 (21-32) mmol/L BUN 13 (6-23) mg/dl Creatinine 0.73 (0.6-1.2) mg/dl Glucose 114 H (70-99(Fasting)) mg/dl Calcium 9.0 (8.6-10.3) mg/dl Intake and Output 05/25/24 05/26/24 05/26/24 22:59 06:59 14:59 Intake Total 500 / 1344.167 300 / 1344.167 200 / 200 Output Total Balance 500 / 869.167 300 / 869.167 199 / 199 Intake: IV 300 / 794.167 200 / 794.167 200 / 200 Acetaminophen 1,000 mg In 100 100 / 300 100 / 300 100 / 100 ml @ 400 mls/hr IV Q8H PRN Rx#: [id number] Magnesium Sulfate / D5w 1 gm In 100 / 194.167 100 ml @ 50 mls/hr IV Q2H PAULA Rx#:[id number] Piperacillin/Tazobactam 4.5 gm 100 / 300 100 / 300 100 / 100 In 100 ml @ 25 mls/hr IV Q8H PAULA Rx#:[id number] Oral 200 / 550 100 / 550 Output: # Bowel Movements Other: # Unmeasured Voids 0 1 Weight 67.5 kg Weight Measurement Method Built in [facility]
[2024-05-26] MEDS: DICLOFENAC SOD 1% GEL 100 GM TUBE EXT PRN (14:25)
--- NOTE | 2024-05-26 14:27 | Hospitalist Progress Note ---
Date of Service May 26, 2024 Assessment & Plan (1) Sepsis due to pneumonia: (2) Acute respiratory failure with hypoxemia: (3) Sinus tachycardia: (4) Premature atrial contractions: (5) Paroxysmal atrial tachycardia: (6) Elevated troponin I level: (7) Acute urinary retention: (8) Hypertension: (9) Shingles rash: (10) ASCVD (arteriosclerotic cardiovascular disease): (11) AAA (abdominal aortic aneurysm) without rupture: (12) Hx of rheumatoid arthritis: (13) Opioid dependence: (14) Ambulatory dysfunction: Plan 89 year old female with PMH significant for bilateral severe carotid artery stenosis, AAA, HTN, dyslipidemia, diastolic CHF, CKD III, GERD, DDD, chronic back pain with opioid dependence, RA on Xeljanz, history of syncope, history of unsustained vtach s/p implanted loop recorder, history of shingles, and ambulatory dysfunction who presented to the ED yesterday for fever and cough. She went to her PCP on 05/19 for URI symptoms and was prescribed doxycycline. In the ED, she was found to be hypoxic and tachycardic and initially thought to have new onset Afib with RVR. She was given a bolus and started on a cardizem drip. A CXR revealed a right sided infiltrate consistent with PNA. Her labs demonstrated negative leukocytosis, procalcitonin, and lactate. She had a negative viral panel. She was admitted for sepsis secondary to PNA and evaluation for possible new onset Afib. Sepsis secondary to pneumonia Acute respiratory failure with hypoxemia Patient met criteria for sepsis given tachycardia, tachypnea, and CXR demonstrating PNA on admission. Blood cultures negative so far. Completed five day course of IV zosyn and PO azithromycin. Continue mucinex. Sinus tachycardia, PACs, PAT Elevated troponin Cardiology reviewed EKG and telemetry which revealed sinus tachycardia with frequent PACs and short runs of PAT, ruled out new onset Afib with RVR. Intermittent tachycardia - improving. Continue increased metoprolol succinate 50mg bid. Monitor electrolytes. K 3.9 and Mag 2.3 this morning. PO KCl 25meq repletion today. Cardiology recommends K>4.0, Mag>2.0 Acute urinary retention Patient with urinary retention and higgins placed from 05/23-05/25. Upon removal of higgins yesterday, patient had PVR of 166mL. This morning, PVR of 356mL. Urology consulted and recommended re-placement of higgins catheter with outpatient follow up. Hypertension Intermittent hypertension. Continue Imdur 30mg daily. Shingles rash Improving. Continue valacyclovir 1,000mg bid x10 days. Continue IV tylenol PRN for pain. Bilateral severe carotid artery stenosis Chronic, stable. Asymptomatic. Previously presented to the ED on 12/20/23 for confusion and had a neck CTA which revealed severe stenosis of the left ICA, 80- 90% stenosis of the distal LCCA, proximal left ICA and ECA and mild stenosis of the ISAIAH. She follows with [facility] (last seen 12/25/23) every 6 months. AAA Chronic, stable. Asymptomatic. She follows with [facility] (last seen 12/25/23) every 6 months. Dyslipidemia Chronic, stable. Continue statin and aspirin. Rheumatoid arthritis Chronic, stable. Holding Xeljanz. GERD Chronic, stable. Continue famotodine. DVT Prophylaxis: subQ heparin Code Status: DNR/DNI PCP: Dr. Candice Mcnair, Disposition: Patient has bed at [facility]. Awaiting insurance authorization. Likely dc tomorrow. Patient seen in collaboration with Dr. Wood. Please see addendum. I spent a total of 50 minutes coordinating, documenting and providing care for this patient excluding time spent in the performance of separately billed services or time spent by another provider/QHP. Admission and Anticipated Discharge Date Admission Date: May 21, 2024 Supervising Physician Co-Signing Physician Notes Patient seen and examined Patient feeling better today. Still has cough Has urinary retention. Uro recommends replacement of higgins and outpatient follow up Completed antibiotics for pneumonia today Continue valacyclovir to complete 10 day therapy Continue increased dose of toprol and imdur started this admission per Cards Updated son at bedside Patient is medically ready for DC to rehab once bed is available Agree with findings and plans as detailed by Mary Ann Glover Sunita is doing well this morning. She had urinary retention overnight requiring straight catheterization. She is complaining of a headache related to her rash that comes up the back of her head that is relieved by tylenol. She still has a productive cough that she has a hard time expectorating. She denies chest pain, SOB, abdominal pain, N/V/D. She is eating and drinking well. She had a bowel movement this morning. Her son is present at the bedside with her. No concerns from nursing. Review of Systems Review of Systems: All systems reviewed & are unremarkable except as noted in HPI & below Physical Exam Physical Exam: VITALS: Reviewed and VSS. GEN: Healthy appearing, well-developed female, NAD. PSYCH: Good Judgment. AOx3. Normal memory, mood, and affect. HEENT: Head NC/AT. Sclera white, conjunctiva pink. Nares without rhinorrhea. Nasal and oral mucosa pink. Neck: Supple with no masses. CV: Irregular rate and rhythm, no m/r/g. LUNGS: Rhonchi in posterior lung bases. ABD: Soft, NT/ND, NBS, no masses or organomegaly. SKIN: Warm, well perfused. Vesicular rash on left anterior neck without erythema. MSK: No deformities. EXT: No clubbing, cyanosis, or edema. NEURO: Ambulates with walker. Results & Data Results & Data Vital Signs (Past 12 Hours) Vital Signs Temp Pulse Pulse Resp BP Pulse Ox O2 Del Method 05/26/24 11:43 36.9 C 79 18 132/79 93 Room Air 05/26/24 09:24 147/74 H 05/26/24 09:00 Room Air 05/26/24 09:00 89 05/26/24 07:51 37.3 C 62 20 198/81 H 94 Room Air 05/26/24 02:44 36.6 C 87 18 144/75 H 93 Room Air Laboratory Results Short CBC 05/26/24 Range/Units 07:22 WBC 8.14 (4.8-10.8) K/ul Hgb 10.8 L (12.0-16.0) g/dl Hct 33.0 L (37.0-47.0) % Plt Count 388 (130-400) K/uL BMP 05/26/24 07:22 Sodium 139 Potassium 3.9 Chloride 106 Carbon Dioxide 25 BUN 13 Creatinine 0.73 Glucose 114 H Calcium 9.0 I have independently reviewed and interpreted patient's labs including CBC, BMP, and magnesium. Medications Administered Current Inpatient Medications Ascorbic Acid (Ascorbic Acid 500 Mg Tab) 500 mg PO DAILY PAULA Stop: 06/21/24 08:59 Last Admin: 05/26/24 07:33 Dose: 500 mg Aspirin (Aspirin 81 Mg Ectab) 81 mg PO DAILY PAULA Stop: 06/21/24 08:59 Last Admin: 05/26/24 07:33 Dose: 81 mg Buprenorphine HCl (Buprenorphine 5 Mcg/Hr Tdsy) 1 patch TD Tu@0900 PAULA Stop: 06/25/24 08:59 Last Admin: 05/26/24 08:47 Dose: 1 patch Buprenorphine HCl (Buprenorphine 10 Mcg/Hr Tdsy) 1 patch TD Tu@0900 PAULA Stop: 06/25/24 08:59 Last Admin: 05/26/24 08:47 Dose: 1 patch Calcium/Vitamin D (Calcium 600mg + Vit D 400 Iu Tab) 1 tab PO DAILY PAULA Stop: 06/21/24 08:59 Last Admin: 05/26/24 07:34 Dose: 1 tab Diclofenac Sodium (Diclofenac Sod 1% Gel 100 Gm Tube) 2 gm EXT QID PRN; Protocol PRN Reason: Pain Stop: 06/25/24 10:39 Last Admin: 05/26/24 14:25 Dose: 2 gm Dicyclomine HCl (Dicyclomine Hcl 10 Mg Cap) 10 mg PO BID PRN PRN Reason: Abdominal Pain Stop: 06/21/24 00:26 Docusate Sodium (Docusate Sodium 100 Mg Cap) 100 mg PO BID PRN PRN Reason: Constipation Stop: 06/21/24 00:26 Famotidine (Famotidine 20 Mg Tab) 20 mg PO DAILY [facility] Stop: 06/21/24 08:59 Last Admin: 05/26/24 08:46 Dose: 20 mg Fish Oil ([place]-3 (Purified Fish Oil) 1 Gm Cap) 1 cap PO DAILY PAULA Stop: 06/21/24 08:59 Last Admin: 05/26/24 07:33 Dose: 1 cap Furosemide (Furosemide 20 Mg Tab) 20 mg PO MoWeFr@0900 PAULA Stop: 06/21/24 08:59 Last Admin: 05/25/24 07:47 Dose: 20 mg Gabapentin (Gabapentin 300 Mg Cap) 300 mg PO BID [facility] Stop: 06/21/24 08:59 Last Admin: 05/26/24 07:33 Dose: 300 mg Guaifenesin (Guaifenesin 600 Mg Tabcr) 600 mg PO Q12 PAULA Stop: 06/23/24 10:14 Last Admin: 05/26/24 07:34 Dose: 600 mg Heparin Sodium (Porcine) (Heparin Sod 5,000 Unit/0.5 Ml Vial) 5,000 units SQ Q8 PAULA Stop: 06/21/24 13:59 Last Admin: 05/26/24 14:25 Dose: 5,000 units Acetaminophen (Ofirmev) 1,000 mg in 100 mls @ 400 mls/hr IV Q8H PRN PRN Reason: Pain Stop: 05/29/24 09:38 Isosorbide Mononitrate (Isosorbide [place] Extended Rel 30 Mg Tabcr) 30 mg PO QAM [facility] Stop: 06/21/24 09:44 Last Admin: 05/26/24 07:34 Dose: 30 mg Lidocaine (Lidocaine 5% 1 Patch) 1 patch TD DAILY@2100 [facility] Stop: 06/21/24 20:14 Last Admin: 05/25/24 21:23 Dose: Not Given Melatonin (Melatonin 3 Mg Tab) 6 mg PO HS PRN PRN Reason: Insomnia Stop: 06/21/24 00:26 Last Admin: 05/25/24 21:21 Dose: 6 mg Metoprolol Succinate (Metoprolol Succ 50mg Ext Rel Tab) 50 mg PO BID [facility] Stop: 06/22/24 08:59 Last Admin: 05/26/24 07:34 Dose: 50 mg Metoprolol Tartrate (Metoprolol Tartrate 1 Mg/Ml Vial) 5 mg IV Q6 PRN PRN Reason: Tachycardia Stop: 06/21/24 00:26 Last Admin: 05/22/24 16:35 Dose: 5 mg Miscellaneous (10 Mcg Patch: Check Buprenorphine Patch) 1 each N/A QS [facility] Stop: 06/24/24 15:59 Last Admin: 05/26/24 07:35 Dose: 1 each Miscellaneous (5 Mcg Patch: Check Buprenorphine Patch) 1 each N/A QS [facility] Stop: 06/24/24 15:59 Last Admin: 05/26/24 07:35 Dose: Not Given Miscellaneous (Remove Lidoderm Patch) 1 each N/A DAILY [facility] Stop: 06/22/24 20:59 Last Admin: 05/26/24 07:35 Dose: Not Given Miscellaneous (Remove & Waste Butrans Patch 1 Ea Ea) 1 each N/A Tu@0859 [facility] Stop: 07/02/24 08:58 Miscellaneous (Remove & Waste Butrans Patch 1 Ea Ea) 1 each N/A Tu@0853 [facility] Stop: 07/02/24 08:58 Nitroglycerin (Nitroglycerin Sl 0.4 Mg/Tab Tab) 0.4 mg SL Q5M PRN PRN Reason: Chest Pain Stop: 06/21/24 00:26 Nystatin (Nystatin Susp 500,000 U/5 Ml Udc) 5 ml PO QID [facility] Stop: 06/04/24 12:59 Last Admin: 05/26/24 12:05 Dose: 5 ml Ondansetron HCl (Ondansetron Inj 2 Mg/Ml 2 Ml Vial) 4 mg IV Q6H PRN PRN Reason: Nausea Stop: 06/21/24 00:26 Last Admin: 05/25/24 23:40 Dose: 4 mg Polyethylene Glycol (Polyethylene (Miralax) 17 Gm Pack) 17 gm PO DAILY PRN PRN Reason: Constipation Stop: 06/21/24 00:26 Last Admin: 05/24/24 12:01 Dose: 17 gm Rosuvastatin Calcium (Rosuvastatin Calcium 20 Mg Tab) 40 mg PO DAILY [facility] Stop: 06/21/24 08:59 Last Admin: 05/26/24 07:32 Dose: 40 mg Simethicone (Simethicone 80 Mg Chew) 80 mg PO Q6H PRN PRN Reason: Gastrointestinal Spasms Or Cramping Stop: 06/21/24 00:26 Last Admin: 05/25/24 11:19 Dose: 80 mg Tramadol HCl (Tramadol Hcl 50 Mg Tablet) 25 mg PO BID PRN PRN Reason: Pain Stop: 06/21/24 00:26 Last Admin: 05/25/24 21:22 Dose: 25 mg Valacyclovir HCl (Valacyclovir Hcl 500 Mg Tablet) 1,000 mg PO BID [facility] Stop: 05/29/24 08:59 Last Admin: 05/26/24 07:33 Dose: 1,000 mg Vitamin D (Cholecalciferol 25 Mcg (1000 Units) Tab) 25 mcg PO DAILY [facility] Stop: 06/21/24 08:59 Last Admin: 05/26/24 07:32 Dose: 25 mcg
[2024-05-26] MEDS: ACETAMINOPHEN 1,000 MG/100 ML VIAL IV PRN (17:04)
[2024-05-27 08:01] LABS: Hematocrit (blood only) 33.7 % (37.0-47.0); Hemoglobin 10.8 g/dl (12.0-16.0); Mean Corpuscular Hemoglobin 29.8 pg (25.0-34.0); Mean Corpuscular Volume 92.8 fL (80.0-100.0); Mean Platelet Volume 9.2 fL (9.4-12.4); Nucleated RBC # (auto) 0.04 K/uL (0.00-0.12); Nucleated RBC % (auto) 0.5 %; Platelet Count 416 K/uL (130-400); RDW Coefficient of Variation 15.4 % (11.5-14.5); RDW Standard Deviation 51.8 fL (36.4-46.3); Red Blood Count 3.63 M/uL (4.20-5.40); White Blood Count 8.86 K/ul (4.8-10.8)
[2024-05-27 08:06] VITALS: RESP 19
[2024-05-27 08:14] LABS: BUN Creatinine Ratio 21.5 (10-20); Calcium 9.2 mg/dl (8.6-10.3); Magnesium 2.2 mg/dl (1.7-2.4); Potassium 4.2 mmol/L (3.5-5.1)
[2024-05-27] MEDS ORDERED: Nursing to Pharmacy Communication SCH (10:30)
[2024-05-27 11:09] VITALS: BP 103/61; TEMP 98.1; O2SAT 90
--- NOTE | 2024-05-27 13:48 | Discharge Summary ---
Discharge Summary Date of Service May 27, 2024 Principal Dx & Hospital Course #1 = Principal Diagnosis (1) Sepsis due to pneumonia: (2) Acute respiratory failure with hypoxemia: (3) Sinus tachycardia: (4) Premature atrial contractions: (5) Paroxysmal atrial tachycardia: (6) Elevated troponin I level: (7) Acute urinary retention: (8) Hypertension: (9) Shingles rash: (10) ASCVD (arteriosclerotic cardiovascular disease): (11) AAA (abdominal aortic aneurysm) without rupture: (12) Hx of rheumatoid arthritis: (13) Opioid dependence: (14) Ambulatory dysfunction: Plan per admitting service notes with addendum: 89 year old female with PMH significant for bilateral severe carotid artery stenosis, AAA, HTN, dyslipidemia, diastolic CHF, CKD III, GERD, DDD, chronic back pain with opioid dependence, RA on Xeljanz, history of syncope, history of unsustained vtach s/p implanted loop recorder, history of shingles, and ambulatory dysfunction who presented to the ED yesterday for fever and cough. She went to her PCP on 05/19 for URI symptoms and was prescribed doxycycline. In the ED, she was found to be hypoxic and tachycardic and initially thought to have new onset Afib with RVR. She was given a bolus and started on a cardizem drip. A CXR revealed a right sided infiltrate consistent with PNA. Her labs demonstrated negative leukocytosis, procalcitonin, and lactate. She had a negative viral panel. She was admitted for sepsis secondary to PNA and evaluation for possible new onset Afib. Sepsis secondary to pneumonia Acute respiratory failure with hypoxemia Patient met criteria for sepsis given tachycardia, tachypnea, and CXR demonstrating PNA on admission. Blood cultures negative so far. CT chest: 1. Scattered areas of ground glass density with interlobular septal thickening and nodular opacities are seen. 2. Right lower lobe airspace confluent in consolidation with trace of right pleural effusion, interval new finding. 3. The constellation of findings suggests acute on chronic infective etiology when compared to prior study. Recommend clinical correlation and follow-up. 4. Fluid attenuating lesion is noted in close in addition to body of pancreas, not appreciated on prior. Further assessment with enhanced CT abdomen is recommended. 5. Age-indeterminant fracture of right 12th rib, T12 and L1 vertebral bodies. Completed five day course of IV zosyn and PO azithromycin. Continue mucinex. 05/27 Blood cultures negative continue 5 more days of PO Cefuroxime to complete 10 day Antibiotic course Continue Incentive spirometry, flutter valve, Mucinex repeat CT chest in 1-2 months to reevaluated R lower lobe consolidation Sinus tachycardia, PACs, PAT Elevated troponin Cardiology reviewed EKG and telemetry which revealed sinus tachycardia with frequent PACs and short runs of PAT, ruled out new onset Afib with RVR. Intermittent tachycardia - improving. Continue increased metoprolol succinate 50mg bid. Monitor electrolytes. K 3.9 and Mag 2.3 this morning. PO KCl 25meq repletion today. Cardiology recommends K>4.0, Mag>2.0 05/27 Repeat potassium and magnesium in 2 to 3 days Acute urinary retention Patient with urinary retention and higgins placed from 05/23-05/25. Upon removal of higgins yesterday, patient had PVR of 166mL. This morning, PVR of 356mL. Urology consulted and recommended re-placement of higgins catheter with outpatient follow up. 05/27 Continue Higgins catheter for now, outpatient urology follow-up Hypertension Intermittent hypertension. Continue Imdur 30mg daily. Shingles rash Improving. Continue valacyclovir 1,000mg bid x10 days- To complete on May 30, 2024. Continue IV tylenol PRN for pain. Bilateral severe carotid artery stenosis Chronic, stable. Asymptomatic. Previously presented to the ED on 12/20/23 for confusion and had a neck CTA which revealed severe stenosis of the left ICA, 80- 90% stenosis of the distal LCCA, proximal left ICA and ECA and mild stenosis of the ISAIAH. She follows with [facility] Surgery (last seen 12/25/23) every [address] abdomen: Slight increase in caliber of a 4.7 cm infrarenal abdominal aortic aneurysm. No rupture. Asymptomatic. She [facility] with [facility] (last seen 12/25/23) every 6 months. Dyslipidemia Chronic, stable. Continue statin and aspirin. Rheumatoid arthritis Chronic, stable. Usually on Xeljanz- On hold for now in light of pneumonia, shingles--> resume Xeljanz on June 02, 2024Once pneumonia and shingles are resolved GERD Chronic, stable. Continue famotodine. DVT Prophylaxis: subQ heparin Code Status: DNR/DNI PCP: Dr. Candice Mcnair, DO Disposition: Transition to [facility] Notes For Next Care Provider Medication Changes From Visit Please refer to medical reconciliation section Admission HPI Per Admitting Provider 89-year-old female with past medical history significant for CAD status post stent, abdominal aortic aneurysm, dyslipidemia, pancreatic cyst, hypertension, history of syncope in May 2017, nonsustained ventricular tachycardia on event monitor, history of COVID pneumonitis, history of falls, history of chronic rheumatoid arthritis on immunosuppressive therapy, history of lumbar laminectomy, ambulatory dysfunction uses wheelchair, leg weakness, history of lower leg cellulitis, history of bilateral carotid artery stenosis, chronic constipation, GERD, CKD stage III, osteoarthritis, compression fracture of T12 vertebrae, migraines, history of s/p placement of implantable loop recorder, opioid dependence comes from [facility] for confusion, cough and shortness of breath. Patient was having shortness of breath and cough for few days saw PCP on 05/19/2024 and was prescribed doxycycline. As per son patient started taking doxycycline since yesterday. Tonight she seemed more confused and more short of breath and could not able to cough. Was having fever. In the ER she was having temp spike and tachycardia and rapid A-fib. With the Cardizem cu rrently patient converted back to sinus rhythm. Patient says she has some chest pain earlier but that got resolved now. Denies any headache. Vision is okay. No runny nose or sore throat. No nausea. Denies abdominal pain. Normal bowel and bladder movements. Denies any blood in the stools or hematuria. Feeling weak. Could tell her history. Knows that she in the hospital. Knows current year but not accurate with the month. Patient has a feeling lump like in the throat and neck regions before starting doxycycline and when son saw her today at 11 AM there was no rash but currently she has some blebs in the throat region and the erythematous rash extending into the left side of the neck behind the ear and into the scalp. She says she has some itchiness of the rash region. Denies any pain. Patient has history of shingles in the past. Patient was seen in the hospital in January 2024 with sepsis, UTI, right upper lobe pneumonia and acute on chronic diastolic CHF and ambulatory dysfunction and right leg weakness. During that admission she was found to have moderate to severe multilevel degenerative disc disease. She followed with orthospine at [place] and no surgery is planned. And last admit she was treated with Augmentin for, strep UTI. She also found to have infrarenal abdominal aortic aneurysm 4.5 cm and also CTA neck with severe stenosis of left ICA 80-90 for stenosis of distal left CCA and proximal left ICA and ECA. Son says there is no plan for any procedures. Past medical history. As mentioned above Past surgical history. Colonoscopy. Left heart catheterization. EGD. EGD with endoscopic ultrasound. Insertion of peripheral gastric neurostimulator, knee arthroscopy, ligation of oviducts, lumbar hemilaminectomy, right cataract, tonsillectomy adenoidectomy, repair of bladder and vaginal cystocele, right shoulder arthroscopy, vaginal hysterectomy Social history. . Quit smoking in 1975. Smoked 1 pack a day for 20 years. Alcohol glass of wine. No drug use. Family history. Mother had diabetes. Father had IN. Brother had IN. Son had renal cancer. Admission Exam Per Admitting Provider General- Not in distress Head- atraumatic Eyes- PERRL. ENT- oropharynx clear Neck- supple, no JVD. Lungs- clear to auscultation no wheezing or crackles Heart- regular rhythm; no murmur, no gallop. Abdomen- normal bowel sounds, soft, nontender, no distension Extremities- no pretibial edema, chronic skin changes seen in lower extremity. Neuro- alert, oriented x 3; PERRL, no facial palsy; no dysarthria; moves extremities Skin. Erythematous rash with blebs seen in the throat region, rash extending to the back of left ear to scalp. Discharge Exam General- oriented x 3, not in distress, speaks in sentences with no effort or accessory muscle use Eyes- anicteric Neck- no JVD Lungs- clear breath sounds bilaterally, no rales/wheezes Heart- mild rales at the bases no wheezing Abdomen- normal bowel sounds, nondistended, soft, nontender Higgins catheter bag, yellow urine Extremities- no pretibial edema, no calf tenderness Neuro- alert, oriented x 3; no gross focal neurologic deficits Skin- warm & dry Updated Medication List Medication Instructions Recorded Confirmed Type ascorbic acid (vitamin C) 500 mg 500 mg PO DAILY #30 tabs 05/27/24 Rx tablet (Vitamin C) aspirin 81 mg tablet,delayed 81 mg PO DAILY #30 tabs 05/27/24 Rx release buprenorphine 15 mcg/hour weekly 15 patch topical UD #4 ea 05/27/24 Rx transdermal patch calcium 500 mg (as 1 tab PO DAILY #30 tabs 05/27/24 Rx carbonate)-vitamin D3 5 mcg (200 unit) tablet (Oyster Shell Calcium-Vitamin D3) cefuroxime axetil 500 mg tablet 500 mg PO BID 5 days #10 tabs 05/27/24 Rx cholecalciferol (vitamin D3) 25 25 mcg PO DAILY #30 caps 05/27/24 Rx mcg (1,000 unit) capsule (Vitamin D3) colesevelam 625 mg tablet 625 mg PO BID #60 tabs 05/27/24 Rx dicyclomine 10 mg capsule 10 mg PO BID PRN Abdominal Pain 05/27/24 Rx #10 caps docusate sodium 100 mg capsule 100 mg PO BID PRN Constipation #14 05/27/24 Rx (Colace) caps famotidine 20 mg tablet 20 mg PO DAILY #30 tabs 05/27/24 Rx furosemide 20 mg tablet 20 mg PO UD #12 tabs 05/27/24 Rx gabapentin 300 mg capsule 300 mg PO BID #60 caps 05/27/24 Rx guaifenesin 600 mg tablet, 600 mg PO Q12 4 days #8 tabs 05/27/24 Rx extended release 12 hr (Mucinex) isosorbide mononitrate 30 mg 30 mg PO QAM 30 days #30 tabs 05/27/24 Rx tablet,extended release 24 hr melatonin 3 mg tablet 6 mg (2 x 3 mg) PO HS PRN Insomnia 05/27/24 Rx #14 tabs metoprolol succinate 50 mg 50 mg PO BID 30 days #60 tabs 05/27/24 Rx tablet,extended release 24 hr mgtxeegm-vxp- 250 mg-dha 90 1 cap PO DAILY #30 caps 05/27/24 Rx mg-epa 160 xp-ghrq-juap-zeax capsule (Ocuvite Adult 50 Plus) nystatin 100,000 unit/mL oral 5 ml PO QID 4 days #80 mL 05/27/24 Rx suspension polyethylene glycol 3350 17 gram 17 g PO DAILY PRN constipation #14 05/27/24 05/21/24 Rx oral powder packet (Miralax) ea rosuvastatin 40 mg tablet 40 mg PO DAILY #30 tabs 05/27/24 Rx simethicone 80 mg chewable tablet 80 mg PO Q6H PRN Gastrointestinal 05/27/24 Rx Spasms Or Cramping #14 tabs tofacitinib 11 mg tablet,extended 11 mg PO DAILY #30 tabs 05/27/24 Rx release 24 hr (Xeljanz XR) tramadol 50 mg tablet 25 mg (1/2 x 50 mg) PO BID PRN 05/27/24 05/21/24 Rx Pain #14 tabs triamcinolone acetonide 0.1 % 1 applic topical BID PRN Rash #30 05/27/24 Rx topical cream grams valacyclovir 500 mg tablet 1,000 mg (2 x 500 mg) PO BID #14 05/27/24 Rx tabs Hospital Stay Data Consultations 05/21/24 20:33 ED Decision to Admit Stat 05/22/24 08:00 Consult Cardiology Routine Diagnostic Imagining Performed Laboratory Results WBC 8.86 K/ul (4.8-10.8) 05/27/24 07:45 RBC 3.63 M/uL (4.20-5.40) L 05/27/24 07:45 Hgb 10.8 g/dl (12.0-16.0) L 05/27/24 07:45 Hct 33.7 % (37.0-47.0) L 05/27/24 07:45 MCV 92.8 fL (80.0-100.0) 05/27/24 07:45 MCH 29.8 pg (25.0-34.0) 05/27/24 07:45 MCHC 32.0 g/dL (32.0-36.0) 05/27/24 07:45 RDW Std Deviation 51.8 fL (36.4-46.3) H 05/27/24 07:45 RDW Coeff of Brayn 15.4 % (11.5-14.5) H 05/27/24 07:45 Plt Count 416 K/uL (130-400) H 05/27/24 07:45 MPV 9.2 fL (9.4-12.4) L 05/27/24 07:45 Immature Gran % (Auto) 0.8 % 05/22/24 05:22 Neut % (Auto) 88.1 % 05/22/24 05:22 Lymph % (Auto) 4.5 % 05/22/24 05:22 Baldwin % (Auto) 6.1 % 05/22/24 05:22 Eos % (Auto) 0.2 % 05/22/24 05:22 Baso % (Auto) 0.3 % 05/22/24 05:22 Neut # (Auto) 9.90 K/uL (1.40-6.50) H 05/22/24 05:22 Lymph # (Auto) 0.50 K/uL (1.20-3.40) L 05/22/24 05:22 Baldwin # (Auto) 0.68 K/uL (0.11-0.59) H 05/22/24 05:22 Eos # (Auto) 0.02 K/uL (0.00-0.50) 05/22/24 05:22 Baso # (Auto) 0.03 K/uL (0.00-0.20) 05/22/24 05:22 Immature Gran # (Auto) 0.09 K/uL (0.01-0.20) 05/22/24 05:22 Absolute Nucleated RBC 0.04 K/uL (0.00-0.12) 05/27/24 07:45 Nucleated RBC % (auto) 0.5 % 05/27/24 07:45 PT 10.3 Seconds (9.0-12.0) 05/21/24 16:38 INR 0.9 (0.9-1.1) 05/21/24 16:38 APTT 24 Seconds (21-31) 05/21/24 16:38 PTT Ratio 0.9 05/21/24 16:38 Heparin Anti-Xa, Unfract 0.35 IU/ml (0.3-0.7) 05/22/24 05:22 Sodium 138 mmol/L (136-145) 05/27/24 07:45 Potassium 4.2 mmol/L (3.5-5.1) 05/27/24 07:45 Chloride 106 mmol/L (98-107) 05/27/24 07:45 Carbon Dioxide 26 mmol/L (21-32) 05/27/24 07:45 Anion Gap 6 (3-11) 05/27/24 07:45 BUN 14 mg/dl (6-23) 05/27/24 07:45 Creatinine 0.65 mg/dl (0.6-1.2) 05/27/24 07:45 Est Cr Clr Drug Dosing 57.0 ml/min 05/27/24 07:45 eGFR 84.63 05/27/24 07:45 BUN/Creatinine Ratio 21.5 (10-20) H 05/27/24 07:45 Glucose 105 mg/dl (70-99(Fasting)) H 05/27/24 07:45 Lactate 1.2 mmol/L (0.4-2.0) 05/21/24 19:30 Calcium 9.2 mg/dl (8.6-10.3) 05/27/24 07:45 Magnesium 2.2 mg/dl (1.7-2.4) 05/27/24 07:45 Total Bilirubin 0.5 mg/dl (0.2-1.0) 05/21/24 16:38 Direct Bilirubin 0.2 mg/dl (0-0.2) 05/21/24 16:38 AST 15 U/L (13-39) 05/21/24 16:38 ALT 4 U/L (7-52) L 05/21/24 16:38 Alkaline Phosphatase 66 U/L (34-104) 05/21/24 16:38 Troponin I High Sens 49.7 pg/ml (0-14) H 05/22/24 16:45 B-Natriuretic Peptide 324 pg/ml (0-100) H 05/21/24 19:30 Total Protein 8.4 gm/dl (6.0-8.3) H 05/21/24 16:38 Albumin 4.3 gm/dl (3.4-5.0) 05/21/24 16:38 Procalcitonin 0.06 ng/ml (0-0.5) 05/21/24 16:38 Urine Color Yellow 05/21/24 Unknown Urine Appearance Cloudy (Clear) A 05/21/24 Unknown Urine pH 7.5 (4.5-7.5) 05/21/24 Unknown Ur Specific [place] 1.015 (1.000-1.030) 05/21/24 Unknown Urine Protein 2+ (Negative) H 05/21/24 Unknown Urine Glucose (UA) Negative (Negative) 05/21/24 Unknown Urine Ketones Trace (Negative) H 05/21/24 Unknown Urine Blood 2+ (Negative) H 05/21/24 Unknown Urine Nitrite Negative (Negative) 05/21/24 Unknown Urine Bilirubin Negative (Negative) 05/21/24 Unknown Urine Urobilinogen Negative (Negative) 05/21/24 Unknown Ur Leukocyte Esterase Negative (Negative) 05/21/24 Unknown Urine WBC (Auto) 0-5 /hpf (0-5) 05/21/24 Unknown Urine RBC (Auto) >20 /hpf (0-2) H 05/21/24 Unknown U Hyaline Cast (Auto) 0-2 /lpf (0-2) 05/21/24 Unknown U Epithel Cells (Auto) 0-2 /hpf (0-2) 05/21/24 Unknown Urine Bacteria (Auto) None Seen (None Seen) 05/21/24 Unknown Adenovirus (PCR) Not Detected (NotDetected) 05/21/24 16:38 B. pertussis DNA (PCR) Not Detected (NotDetected) 05/21/24 16:38 B.parapertussis DNA PCR Not Detected (NotDetected) 05/21/24 16:38 C. pneumoniae DNA (PCR) Not Detected (NotDetected) 05/21/24 16:38 Coronavirus OC43 (PCR) Not Detected (NotDetected) 05/21/24 16:38 Coronavirus HKU1 (PCR) Not Detected (NotDetected) 05/21/24 16:38 Coronavirus 229E (PCR) Not Detected (NotDetected) 05/21/24 16:38 SARS-CoV-2 (PCR) Not Detected (NotDetected) 05/21/24 16:38 Coronavirus NL63 (PCR) Not Detected (NotDetected) 05/21/24 16:38 Human Metapneumovir PCR Not Detected (NotDetected) 05/21/24 16:38 Influenza Type A (PCR) Not Detected (NotDetected) 05/21/24 16:38 Influenza Type B (PCR) Not Detected (NotDetected) 05/21/24 16:38 M. pneumoniae (PCR) Not Detected (NotDetected) 05/21/24 16:38 Parainfluenza 1 (PCR) Not Detected (NotDetected) 05/21/24 16:38 Parainfluenza 2 (PCR) Not Detected (NotDetected) 05/21/24 16:38 Parainfluenza 3 (PCR) Not Detected (NotDetected) 05/21/24 16:38 Parainfluenza 4 (PCR) Not Detected (NotDetected) 05/21/24 16:38 RSV (PCR) Not Detected (NotDetected) 05/21/24 16:38 Entero/Rhino (PCR) Not Detected (NotDetected) 05/21/24 16:38 Impressions Chest X-Ray 05/21/24 16:51 EXAM: Portable AP chest radiograph TECHNIQUE: AP portable radiograph of the chest was obtained. INDICATION: Shortness of breath. Comparison: Chest radiograph January 04, 2024 FINDINGS: LINES and TUBES: Loop recorder/leadless pacemaker. CARDIOVASCULAR: Cardiac silhouette is stably enlarged in size. LUNGS/PLEURA: Mild pulmonary vascular congestion. New pulmonary infiltrates in the right lung base. Left perihilar scarring. No significant pleural fluid. No discernible pneumothorax. OSSEOUS/OTHER: No displaced acute osseous process identified. 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 IMPRESSION: New infiltrates in the right lung base consistent with pneumonia. Recommended chest radiograph follow-up in 4-6 weeks after appropriate treatment to ensure resolution. Electronically signed by Antwan Lloyd 05-21-2024 5:22 PM Chest CTA 05/21/24 22:25 EXAM: CT angio chest PE protocol CLINICAL HISTORY: PE TECHNIQUE: CT angiography of the chest was performed with and without intravenous contrast with the following protocol: axial images with, reconstructed coronal and sagittal images. Non-contrast images were initially acquired, followed by contrast-enhanced images in arterial and venous phases. Intravenous contrast 118 ml optiray 320 was administered using automated injection techniques. Bolus tracking was employed to optimize arterial phase imaging. One of these 3D techniques was utilized: Maximum Intensity Pixel (MIP), 3D Reconstructed Images, Volume Rendered Images, Surface Shaded Rendering. One of the following dose reduction techniques was utilized for this exam: Automated exposure control, adjustment of the mA and/or kV according to patient size, and use of iterative reconstruction. COMPARISON: 10/27/2020 FINDINGS: Aorta and Great Vessels: Ascending Aorta: Normal in caliber, no aneurysm, dissection, or significant atherosclerosis. Aortic Arch: Normal in caliber, no aneurysm, dissection, or significant atherosclerosis. Descending Aorta: Normal in caliber, no aneurysm, dissection, or significant atherosclerosis. Pulmonary Arteries: The main pulmonary artery and its branches are patent. No evidence of pulmonary embolism or significant stenosis. Heart: Cardiac Chambers: Normal in size. No evidence of cardiomegaly. Pericardium: No pericardial effusion or thickening. Suggestion of leadless pacemaker in the chest wall Lungs and Pleura: Multifocal areas of ground glass densities with interlobular septal thickening and nodular opacities are noted involving both lung medina. There is a right lower lobe confluenting consolidation. There is trace of right effusion. Mediastinum: No mediastinal mass or abnormal lymphadenopathy. Normal appearance of the trachea and central bronchi. Hilar Structures: Hilar structures are normal without enlargement. Chest Wall: No mass lesions or abnormalities in the chest wall. Vascular Structures: Superior Vena Cava: Patent without evidence of stenosis or thrombus. Inferior Vena Cava: Patent without evidence of stenosis or thrombus. Upper abdomen: The sections from upper abdomen demonstrate a rounded fluid attenuating area measuring 2.0 x 1.8 cm with peripheral rim of calcification is seen in close proximity to the mid body of pancreas. Mild left-sided perinephric fat stranding. Bones and Soft Tissues: Age-indeterminate fracture of the right 12th rib is noted. Age-indeterminate fractures of T12 and L1 vertebral bodies is noted with loss of more than 50% vertebral body heights. No retropulsion or retrolisthesis is appreciated. Multilevel moderate thoracic degenerative changes. Mild degenerative changes at both shoulder joints. Patient is s/p right shoulder arthroplasty. Soft tissues are unremarkable. IMPRESSION: 1. Scattered areas of ground glass density with interlobular septal thickening and nodular opacities are seen. 2. Right lower lobe airspace confluent in consolidation with trace of right pleural effusion, interval new finding. 3. The constellation of findings suggests acute on chronic infective etiology when compared to prior study. Recommend clinical correlation and follow-up. 4. Fluid attenuating lesion is noted in close in addition to body of pancreas, not appreciated on prior. Further assessment with enhanced CT abdomen is recommended. 5. Age-indeterminant fracture of right 12th rib, T12 and L1 vertebral bodies. Electronically signed by Alan Pineda 05-22-2024 01:21 AM Abdomen/Pelvis CT 05/22/24 11:51 CT OF THE ABDOMEN AND PELVIS WITHOUT CONTRAST CLINICAL HISTORY: re-evaluate pancreas, follow up from CT chest COMPARISON STUDY: Chest CT May 21, 2024. CT of the abdomen and pelvis November 22, 2023. TECHNIQUE: Axial images of the abdomen and pelvis were obtained without IV contrast. Images were reviewed in the axial, sagittal, and coronal planes. Automated exposure control was utilized for the study. A dose lowering technique was utilized adhering to the principles of ALARA. FINDINGS: Scattered alveolar opacities within the lower lungs are noted. Secretions within lower lobe bronchi are present. There is no pneumatosis, free air or portal venous gas. Incidental note is made of excreted contrast from recent contrast-enhanced CT. A 4.7 cm infrarenal abdominal aortic aneurysm has slightly increased in caliber since CT of November 22, 2023 when it measured 4.4 cm. There is no evidence for rupture. There is extensive aortoiliac atherosclerotic plaque. There is no evidence for a bowel obstruction. Note is made of colonic diverticulosis without evidence for acute diverticulitis. No biliary or pancreatic ductal dilatation is present. Unenhanced images of the liver, spleen and adrenal glands are unremarkable. A cystic 2.4 cm pancreatic body lesion on image [address] of November 22, 2023. This contains peripheral/dependent calcifications. Although suboptimally assessed on unenhanced exam, no solid component is identified. Pancreatic glandular atrophy is unchanged. There is no lymphadenopathy. Old compression fractures of T12-L4 are unchanged. There are stable findings following L2-L4 decompression and fusion. No acute lumbar spine, pelvic or hip fractures are identified. IMPRESSION: 1. 2.4 cm cystic pancreatic body lesion which is unchanged since CT of November 22, 2023. Although suboptimally assessed on unenhanced exam, this is low suspicion and may represent a side branch IPMN. No pancreatic ductal dilatation. 2. Slight increase in caliber of a 4.7 cm infrarenal abdominal aortic aneurysm. No rupture. 3. Alveolar opacities within the lower lungs which favor pneumonia or aspiration pneumonitis. 4. No bowel obstruction. ACT 112: Negative or not required by law. Electronically signed by: Freddy Rivera M.D. 05/22/2024 1:12 PM Pending Results Patient Have Any Pending Studies at Discharge: No Discharge Instructions Given to Patient (Per Discharging Provider) You were admitted to the hospital for pneumonia and fast heart rate. Your pneumonia was treated with IV antibiotics, oxygen, mucinex, and breathing exercises. Cardiology was consulted for your fast heart rate and determined that you had sinus tachycardia with premature atrial contractions, NOT atrial fibrillation. We increased your metoprolol dose and monitored your electrolytes while you were in the hospital. You also had high blood pressures in the hospital and we started you on imdur. You also had shingles on your left neck and head region. We treated you with valacyclovir and tylenol as needed for the pain. You experienced some urinary retention while in the hospital. We consulted Urology who recommended placing a higgins catheter and they will set up a follow up visit with you. MEDICATION CHANGES: We increased your metoprolol dose from 25mg bid to 50mg bid. We started you on imdur 30mg daily. You will continue taking valacyclovir 1,000mg bid until 05/30. Last dose in the morning. SUMMARY OF TEST RESULTS: See above PENDING TEST RESULTS: None RECOMMENDATIONS FOR FOLLOW-UP: Please follow up with your PCP after hospitalization. Please follow up with Cardiology. Please follow up with Urology regarding the higgins catheter. OTHER INSTRUCTIONS: Seek medical attention if you have: * temperature above 101 * chest pain or trouble breathing * abdominal pain, nausea, vomiting * diarrhea, dark stools or bloody stools * any unanswered questions or concerns Call 911 if symptoms are severe. It has been a pleasure taking care of you. Please take care of yourself. If you have any questions regarding your recent hospitalization please contact [facility] and request Wilman Malave @ [phone]. Total Time Total Time Spent Total Time Spent (In Minutes): 45 minutes
[2024-05-27 13:50] VITALS: PULSE 104
--- NOTE | 2024-05-28 08:46 | Electrocardiogram Report ---
Test Reason : Blood Pressure : */* mmHG Vent. Rate : 98 BPM Atrial Rate : 98 BPM P-R Int : 164 ms QRS Dur : 76 ms QT Int : 358 ms P-R-T Axes : 55 19 2 degrees QTcB Int : 457 ms Sinus rhythm sonia PACs and with occasional Premature ventricular complexes Otherwise normal ECG Confirmed by Manoj Myles ([id number]) on 05/28/2024 8:46:29 AM Referred By: REFERRED SELF Confirmed By: Manoj Myles
[2024-06-01] MEDS ORDERED: [UNRECOGNIZED DRUG - REMARK] ONE (08:59)
[2024-06-01] MEDS ORDERED: [UNRECOGNIZED DRUG - REMARK] SCH (08:59)
== END 2024-05-27 15:07 | DRG 871 ==
LOC: ED 16:20 → SUATTDRO 22:34 → 2S 22:34

== ENCOUNTER 2024-10-28 13:46 | Inpatient (IN) ==
--- NOTE | 2024-10-28 14:21 | Emergency Department Note ---
Impression & Plan Acute CHF, Ambulatory dysfunction, Acute hypoxemic respiratory failure, Elevated brain natriuretic peptide (BNP) level, Acute pain of right knee ED Provider Note HISTORY OF PRESENT ILLNESS: Patient is an 89-year-old female presenting with ambulatory dysfunction. Patient reports she tripped and fell yesterday and landed on her bilateral knees. She denies striking her head or loss of consciousness. She was evaluated in the emergency department and it was recommended that she be admitted to the hospital, secondary to her being unable to ambulate or bear weight. However, the patient reports that "I was stubborn" and she wanted to go home. She states that since being back at her facility she has been unable to get up and get around and is having increased pain in her right knee. She reportedly was hypotensive for staff at the facility when they rounded on her. Was also noted to be hypoxic on 87% on room air. Patient denies any chest pain or shortness of breath at this time. Denies any abdominal pain, nausea or vomiting. She just reports pain in her right knee. She reports that she is willing to be admitted at this time. ROS: as above PHYSICAL EXAM: Constitutional: Patient appears in no acute distress. HENT: Head: Normocephalic and atraumatic. Eyes: EOMI, PERRL Mouth/Throat: Mucous membranes moist. Neck: Trachea midline. Neck supple. Cardiovascular: RRR, No murmurs, rubs or gallops. Intact distal pulses. Pulmonary/Chest: No respiratory distress. Breath sounds clear and equal bilaterally. No wheezes or rales. Abdominal: Abdomen soft, no tenderness, rebound or guarding. Musculoskeletal: - RLE: Diffuse tenderness to palpation to the right anterior knee. Ecchymosis to the proximal lateral gastrocnemius of the right leg. Skin: Warm and dry. No rash, erythema, pallor or cyanosis Psychiatric: Appropriate mood and affect for situation. Neurological: Alert and keenly responsive. CN II-XII grossly intact, moving all extremities equally and fully. MDM: - Vitals signs showed hypotension and hypoxia. Patient was placed on 3 L nasal cannula with improvement in her saturations - History obtained via patient. History as above. - Chronic conditions affecting care: HTN; HLD; CAD (s/p PCI); CKD - Differential diagnoses include, but are not limited to: Congestive heart failure; acute coronary syndrome; COPD/asthma exacerbation; pulmonary edema; pulmonary embolism; pneumonia; pneumothorax; viral syndrome - Order placed for continuous cardiac monitoring. At this time, monitor showed rate of 71 bpm with normal sinus rhythm, per my interpretation. - External medical records reviewed. Imaging from last night's ER visit was reviewed. Patient was in isolated knee injury after a fall. She did not tolerate bearing weight prior to discharge, but was requesting to be discharged back to her facility even though she could not ambulate. - EKG image interpreted by myself showed normal sinus rhythm. Rate 73 bpm. QT 394. No acute ischemic changes. Noted to have PVCs. - Laboratory workup interpreted by myself showed normal WBC; chronic anemia (Hgb 10.5); normal PT/INR; stable electrolytes; slightly elevated troponin (15); elevated BNP (253) - CXR image reviewed by myself showed some pulmonary vascular congestion, per my interpretation. Radiology notes CHF with trace left pleural effusion. - Patient on new 3L NC in ER. Patient unable to ambulate and bear weight to go home. Also no new oxygen requirement. Will admit to hospitalist service. - Discussion was had with case technician about patient's case and need for admission - Hospitalist consulted for admission - Patient admitted to [facility] hospitalist service for further evaluation and management. ASSESSMENT AND PLAN: Diagnosis: acute CHF; ambulatory dysfunction; acute hypoxic respiratory failure; elevated BNP; acute pain of right knee Plan: admit Past Med/Surg History Problem List (Updated 10/28/24 @ 16:04 by Freda Lr MD) Acute pain of right knee (Acute) Elevated brain natriuretic peptide (BNP) level (Acute) Acute hypoxemic respiratory failure (Acute) Ambulatory dysfunction (Acute) Acute CHF (Acute) Skin tear of lower leg without complication (Acute) Contusion of knee, right (Acute) Effusion of right knee (Acute) Fall (Acute) Chronic pain Acute urinary retention Ventricular premature complexes Shingles rash Paroxysmal atrial tachycardia Premature atrial contractions Sinus tachycardia Immunosuppressed status ASCVD (arteriosclerotic cardiovascular disease) Pneumonia (Acute) Weakness (Acute) Ambulatory dysfunction (Acute) DDD (degenerative disc disease), lumbar (Acute) Acute on chronic diastolic congestive heart failure Degenerative disc disease, lumbar Right upper lobe pneumonia Urinary tract infection after period of immobility Acute sepsis Abnormal ankle brachial index (DOROTHEA) (Acute) ISTAP type 3 skin tear of right hand (Acute) 12/16/23 Traumatic open wound of left lower leg with delayed healing (Acute) 12/16/23 Low back pain radiating to right lower extremity Lumbar radiculopathy, right Degenerative lumbar spinal stenosis AAA (abdominal aortic aneurysm) without rupture Cellulitis of lower extremity 11/25/23 Encephalopathy 11/22/23 Back pain Paroxysmal supraventricular tachycardia Chronic diastolic (congestive) heart failure Acute kidney injury superimposed on CKD 11/22/23 Ambulatory dysfunction BERNADINE (acute kidney injury) (Acute) 11/22/23 Bilateral leg weakness (Acute) 11/22/23 Hypertension Hx of rheumatoid arthritis CAD (coronary artery disease) f/u zachary bergeron Hematoma of right lower leg (Acute) 07/18/23 Greater trochanteric pain syndrome Opioid dependence Greater trochanteric bursitis of left hip Rotator cuff arthropathy of left shoulder Mechanical low back pain Medication monitoring encounter Acquired foot deformity Laceration of right knee (Acute) 08/16/21 Pressure ulcer of toe of left foot, stage 4 07/12/21 T12 compression fracture Fever (Acute) 06/23/21 Weakness (Acute) 06/23/21 Lower extremity edema (Chronic) 06/21/21 Acquired hammer toe (Chronic) Neuropathy (Chronic) Stage IV pressure ulcer (Acute) 05/29/21 Pes anserine bursitis Status post right knee replacement Traumatic open wound of right lower leg (Acute) 02/21/21 Immunosuppression due to chronic steroid use Traumatic open wound of right lower leg with delayed healing (Acute) 12/15/20 Laceration of elbow, left (Acute) 11/23/20 Dehydration (Acute) 10/27/20 Pneumonia due to 2019 novel coronavirus (Acute) 10/27/20 Acute respiratory failure with hypoxia 10/27/20 Multifocal pneumonia 10/27/20 Rheumatoid arthritis (Acute) SARS-CoV-2 positive (Acute) 10/17/20 Weakness (Acute) 10/17/20 Fall 10/17/20 Bilateral knee pain History of total right knee replacement Postural imbalance 08/22/20 Entrapment neuropathy of peripheral nerve of lower extremity Venous insufficiency of both lower extremities (Chronic) Traumatic open wound of right lower leg (Acute) 04/12/20 Pes anserinus tendonitis of right lower extremity Left knee DJD Traumatic wound (Acute) 11/11/19 Left knee pain (Chronic) Postoperative seroma (Chronic) L2-4 Lumbar postlaminectomy syndrome (Chronic) Acquired right foot 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 Lumbar compression fracture (Chronic) L1 acute on chronic MRI 03/[address] 10/17/2020 Pes anserine bursitis Right knee pain Degenerative joint disease of knee Myofascial pain (Chronic) Sacroiliitis (Chronic) 11/20/18 Cervical radiculopathy (Chronic) Greater trochanteric bursitis (Chronic) Lumbago (Chronic) Lumbar radiculitis (Chronic) Peripheral neuropathy (Chronic) Facet syndrome, lumbar (Chronic) CAD (coronary artery disease) (Chronic) Osteoarthritis (Chronic) Myocardial infarct, 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) 11/14/17 Hypertension (Chronic) Dyslipidemia (Chronic) Osteoporosis (Chronic) Rheumatoid arthritis of shoulder (Chronic) Lumbar spinal stenosis (Chronic) Medical History Sepsis due to pneumonia Hypoxia Elevated troponin I level 11/22/23 Acute respiratory failure with hypoxemia 10/27/20 CAD (coronary artery disease) s/p 2 stents Open wound right hand, sees wound clinic Sacral neurostimulator in situ instructed to bring remote dos Hx of supraventricular tachycardia follows with [facility] cardiology AAA (abdominal aortic aneurysm) Abdomen/Pelvis CT 11/2023: Stable Right infrarenal aortic aneurysm measures 44 mm GERD (gastroesophageal reflux disease) Hx of migraines Hx of myocardial infarction (~2008) Lumbar spinal stenosis Postlaminectomy syndrome, lumbar region no current issues Dyslipidemia History of COVID-2020- [facility] admission with acute respiratory failure > no residual effects Neuropathy in both legs, rt>lt Right knee pain Status post TKA taking shots due to bursitis (no shots for at least 3 months) Surgical History Hx of toe surgery Bilateral Feet Second and Third Digit Flexor Tenotomy(Bilateral) Hx of colonoscopy Hx of heart artery stent ~2008, [facility], x1 stent, 2/2 [place] ~2011, [facility] [place], x1 stent, 2/2 heart symptoms; f/u ember salty Hx of cardiac cath ~2008, [facility], x1 stent, 2/2 [place] ~2011, [facility] [place], x1 stent, 2/2 heart symptoms; f/u ember salty History of total shoulder replacement Right History of loop recorder no longer working > follows with Dr Bergeron S/P total knee arthroplasty Right History of lumbosacral spine surgery 50+ years for first one, 2nd one 2014, both lower back; flexible rainer and does lesi History of PTCA Remote hx "years ago" History of hysterectomy History of breast biopsy History of tonsillectomy History of adenoidectomy History of angioplasty Family History Father Myocardial infarction Brother Myocardial infarction Other Family history non-contributory Denies family history of Ovarian cancer Prostate cancer Breast cancer Colorectal cancer Social History Smoking Status: Former smoker Tobacco Type: Cigarettes Second Hand Exposure: No; Do You Dip or Chew Tobacco: No; Hx Alcohol Use: Yes Alcohol type: wine Alcohol type Comment: In the evenings. Alcohol Intake Frequency: 4 or More x per/Week Hx Substance Use: No Preferred Language: Guyanese Communication Ability: Effective Visual Impairment: Limited Hearing Ability: Normal Product Inspection Supervisor Required: No Beliefs That Will Affect Care: None marital status: Current Living Situation: Personal Care Facility Current Living Situation Comment: [facility] current occupational status: retired How many Children do You have: 7 Feels Safe at Home: Yes Diet: regular caffeine: No during the past year weight has: remained stable Assistive Devices: Walker and Wheelchair Allergies Allergies Allergy/AdvReac Type Severity Reaction Status Date / Time morphine Allergy Severe Anaphylaxis Verified 07/31/24 15:32 adhesive Allergy Intermediate Tape- rash Verified 07/31/24 15:32 hydroxychloroquine Allergy Intermediate Rash Verified 07/31/24 15:32 Sulfa (Sulfonamide Allergy Intermediate HIVES Verified 07/31/24 15:32 Antibiotics) pregabalin [From Lyrica] AdvReac Severe Edema Verified 07/31/24 15:32 benzonatate AdvReac Intermediate GI upset Verified 07/31/24 15:32 lisinopril AdvReac Intermediate GI Verified 07/31/24 15:32 symptoms, cough shrimp AdvReac Intermediate GI symptoms Verified 07/31/24 15:32 codeine AdvReac Mild Nausea Verified 07/31/24 15:32 Home Meds Home Medications Medication Instructions Recorded Confirmed benzonatate 100 mg capsule 100 mg PO Q8H PRN Cough 07/31/24 10/28/24 buprenorphine 15 mcg/hour weekly 15 patch topical WK 07/31/24 10/28/24 transdermal patch calcium 500 mg (as 1 tab PO QDD 07/31/24 10/28/24 carbonate)-vitamin D3 5 mcg (200 unit) tablet (Oyster Shell Calcium-Vitamin D3) cyanocobalamin (vitamin B-12) 1,000 mcg PO QAM 07/31/24 10/28/24 1,000 mcg tablet (Vitamin B-12) diclofenac sodium 1 % topical gel 4 g topical BID PRN RIGHT HIP PAIN 07/31/24 10/28/24 docusate sodium 100 mg capsule 100 mg PO DAILY Constipation 07/31/24 10/28/24 (Colace) furosemide 20 mg tablet 20 mg PO QAM 07/31/24 10/28/24 hydrocortisone 1 % topical cream 1 applic topical BID PRN ITCHY RASH 07/31/24 10/28/24 hydrocortisone 1 % topical cream 1 applic topical BID PRN 07/31/24 10/28/24 (Preparation H Hydrocortisone) Hemorrhoids isosorbide mononitrate 30 mg 30 mg PO QAM 07/31/24 10/28/24 tablet,extended release 24 hr lidocaine 4 % topical patch 1 patch topical .EVERY 24 HOURS 07/31/24 10/28/24 (Salonpas (lidocaine)) PRN painful joint or extremity metoprolol succinate 50 mg 50 mg PO BID 07/31/24 10/28/24 tablet,extended release 24 hr polyethylene glycol 400 1 % eye 1 drp ophthalmic (eye) TID PRN Dry 07/31/24 10/28/24 drops (Visine Dry Eye Relief) Eyes rosuvastatin 40 mg tablet 40 mg PO QAM 07/31/24 10/28/24 umeclidinium 62.5 mcg-vilanterol 1 inh inhalation HS 07/31/24 10/28/24 25 mcg/actuation powdr for inhalation (Anoro Ellipta) acetaminophen 500 mg tablet 1,000 mg PO TID 10/28/24 10/28/24 aspirin 81 mg tablet,delayed 81 mg PO QAM 10/28/24 10/28/24 release cholecalciferol (vitamin D3) 25 25 mcg PO QAM 10/28/24 10/28/24 mcg (1,000 unit) capsule (Vitamin D3) famotidine 20 mg tablet 20 mg PO QAM 10/28/24 10/28/24 lidocaine 4 % topical patch 1 patch topical HS 10/28/24 10/28/24 (Salonpas (lidocaine)) lifitegrast 5 % eye drops in a 1 drp OPB BID 10/28/24 10/28/24 dropperette (Xiidra) [id number] 250 mg-dha 90 1 cap PO QAM 10/28/24 10/28/24 mg-epa 160 [id number] capsule (Ocuvite Adult 50 Plus) tofacitinib 11 mg tablet,extended 11 mg PO QAM 10/28/24 10/28/24 release 24 hr (Xeljanz XR) Previous Rx's Medication Instructions Recorded ascorbic acid (vitamin C) 500 mg 500 mg PO DAILY #30 tabs 05/27/24 tablet (Vitamin C) colesevelam 625 mg tablet 625 mg PO BID #60 tabs 05/27/24 gabapentin 300 mg capsule 300 mg PO BID #60 caps 05/27/24 melatonin 3 mg tablet 6 mg (2 x 3 mg) PO HS PRN Insomnia 05/27/24 #14 tabs polyethylene glycol 3350 17 gram 17 g PO DAILY PRN constipation #14 05/27/24 oral powder packet (Miralax) ea simethicone 80 mg chewable tablet 80 mg PO Q6H PRN Gastrointestinal 05/27/24 Spasms Or Cramping #14 tabs triamcinolone acetonide 0.1 % 1 applic topical BID PRN Rash #30 05/27/24 topical cream grams Results & Data (ED) Vital Signs Vital Signs - 24 hr 10/28/24 13:55 10/28/24 13:55 10/28/24 14:01 Temperature 37 C Temperature Source Oral Pulse Rate 75 71 Respiratory Rate 14 Respiratory Effort / Characteristics Non-Labored Spontaneous Respiratory Depth Normal Blood Pressure 96/57 L Blood Pressure Mean 70 Blood Pressure Position Semi-fowlers Pulse Oximetry 89 L 89 L Oxygen Delivery Method Room Air Room Air Oxygen Flow Rate Sepsis Recent Fever Within 48 Hours No Sepsis New/Unexplained Change in Mental Status N/A Sepsis Action Taken by Nursing No Action Required Oxygen Flow Rate - Titration 2 Pulse Oximetry Post Tiitration 95 10/28/24 14:13 Temperature Temperature Source Pulse Rate Respiratory Rate Respiratory Effort / Characteristics Respiratory Depth Blood Pressure Blood Pressure Mean Blood Pressure Position Pulse Oximetry 95 Oxygen Delivery Method Nasal Cannula Oxygen Flow Rate 3 Sepsis Recent Fever Within 48 Hours Sepsis New/Unexplained Change in Mental Status Sepsis Action Taken by Nursing Oxygen Flow Rate - Titration Pulse Oximetry Post Tiitration Laboratory Data 10/28/24 14:09 10/28/24 14:09 Lab Results 10/28/24 Range/Units 14:09 WBC 6.45 (4.8-10.8) K/ul RBC 3.36 L (4.20-5.40) M/uL Hgb 10.5 L (12.0-16.0) g/dl Hct 32.8 L (37.0-47.0) % MCV 97.6 (80.0-100.0) fL MCH 31.3 (25.0-34.0) pg MCHC 32.0 (32.0-36.0) g/dL RDW Std Deviation 52.5 H (36.4-46.3) fL RDW Coeff of Brayn 14.6 H (11.5-14.5) % Plt Count 229 (130-400) K/uL MPV 9.3 L (9.4-12.4) fL Immature Gran % (Auto) 0.3 % Neut % (Auto) 73.0 % Lymph % (Auto) 11.3 % Donley % (Auto) 11.0 % Eos % (Auto) 3.9 % Baso % (Auto) 0.5 % Neut # (Auto) 4.71 (1.40-6.50) K/uL Lymph # (Auto) 0.73 L (1.20-3.40) K/uL Donley # (Auto) 0.71 H (0.11-0.59) K/uL Eos # (Auto) 0.25 (0.00-0.50) K/uL Baso # (Auto) 0.03 (0.00-0.20) K/uL Immature Gran # (Auto) 0.02 (0.01-0.20) K/uL PT 11.0 (9.0-12.0) Seconds INR 1.0 (0.9-1.1) Sodium 140 (136-145) mmol/L Potassium 4.0 (3.5-5.1) mmol/L Chloride 106 (98-107) mmol/L Carbon Dioxide 28 (21-32) mmol/L Anion Gap 6 (3-11) BUN 19 (6-23) mg/dl Creatinine 0.93 (0.6-1.2) mg/dl Est Cr Clr Drug Dosing 39.7 ml/min eGFR 59.12 BUN/Creatinine Ratio 20.4 H (10-20) Glucose 144 H (70-99(Fasting)) mg/dl Calcium 8.8 (8.6-10.3) mg/dl Total Bilirubin 0.6 (0.2-1.0) mg/dl AST 15 (13-39) U/L ALT 7 (7-52) U/L Alkaline Phosphatase 41 (34-104) U/L Troponin I High Sens 15.0 H (0-14) pg/ml B-Natriuretic Peptide 253 H (0-100) pg/ml Total Protein 5.9 L (6.0-8.3) gm/dl Albumin 3.4 (3.4-5.0) gm/dl Globulin 2.5 (2.5-4.0) gm/dl Albumin/Globulin Ratio 1.4 (0.9-2) Imaging Data Radiologist's Impression: Chest X-Ray 10/28/24 14:05 XR chest 1V portable CLINICAL HISTORY: Dyspnea COMPARISON STUDY: 10/27/2024 FINDINGS: There is stable cardiomegaly with mild pulmonary vascular congestion. Stable mild stranding at the left lung base with blunting of the left costophrenic angle. No pneumothorax. IMPRESSION: 1. CHF with trace left pleural effusion. 2. Atelectasis versus early pneumonia left lung base. ACT 112: Negative or not required by law. Electronically signed by: Moises Harkins M.D. 10/28/2024 2:31 PM Discharge Plan Visit Data Chief Complaint: Hypotension ED Provider: Freda Lr Discharge Problem: Acute CHF, Ambulatory dysfunction, Acute hypoxemic respiratory failure, Elevated brain natriuretic peptide (BNP) level, Acute pain of right knee Condition: Fair Forms Stand Alone Forms: [employer] Prescriptions Prescriptions: No Action polyethylene glycol 3350 [Miralax] 17 gram Powder In Packet 17 g PO DAILY PRN (Reason: constipation) Qty: 14 0RF melatonin 3 mg Tablet 6 mg PO HS PRN (Reason: Insomnia) Qty: 14 0RF triamcinolone acetonide 0.1 % cream 1 applic TOPICAL BID PRN (Reason: Rash) Qty: 30 0RF ascorbic acid (vitamin C) [Vitamin C] 500 mg Tablet 500 mg PO DAILY Qty: 30 0RF colesevelam 625 mg tablet 625 mg PO BID Qty: 60 0RF gabapentin 300 mg capsule 300 mg PO BID Qty: 60 0RF simethicone 80 mg Tablet,Chewable 80 mg PO Q6H PRN (Reason: Gastrointestinal Spasms Or Cramping) Qty: 14 0RF lidocaine [Salonpas (lidocaine)] 4 % Adhesive Patch,Medicated 1 patch TOPICAL .EVERY 24 HOURS PRN (Reason: painful joint or extremity) metoprolol succinate 50 mg tablet extended release 24 hr 50 mg PO BID Rx Instructions: HOLD FOR SBP <90 OR HR <60 isosorbide mononitrate 30 mg tablet extended release 24 hr 30 mg PO QAM cyanocobalamin (vitamin B-12) [Vitamin B-12] 1,000 mcg Tablet 1,000 mcg PO QAM benzonatate [Tessalon Perles] 100 mg Capsule 100 mg PO Q8H PRN (Reason: Cough) hydrocortisone [Preparation H Hydrocortisone] 1 % Cream 1 applic TOPICAL BID PRN (Reason: Hemorrhoids) hydrocortisone 1 % Cream 1 applic TOPICAL BID PRN (Reason: ITCHY RASH) diclofenac sodium [Voltaren] 1 % Gel 4 g TOPICAL BID PRN (Reason: RIGHT HIP PAIN) umeclidinium-vilanterol [Anoro Ellipta] 62.5-25 mcg/actuation Blister With Device 1 inh INHALATION HS Visine Dry Eye Relief 1 % Drops 1 drp OPHTHALMIC (EYE) TID PRN (Reason: Dry Eyes) docusate sodium [Colace] 100 mg capsule 100 mg PO DAILY furosemide 20 mg tablet 20 mg PO QAM rosuvastatin 40 mg tablet 40 mg PO QAM calcium carbonate-vitamin D3 [Oyster Shell Calcium-Vit D3] 500 mg-5 mcg (200 unit) tablet 1 tab PO QDD buprenorphine 15 mcg/hour patch weekly 15 patch topical WK Rx Instructions: CHANGE ON TUESDAYS aspirin 81 mg tablet,delayed release (DR/EC) 81 mg PO QAM famotidine 20 mg tablet 20 mg PO QAM cholecalciferol (vitamin D3) [Vitamin D3] 25 mcg (1,000 unit) capsule 25 mcg PO QAM Ocuvite Adult 50 Plus 250 mg (90 mg-160 mg) capsule 1 cap PO QAM acetaminophen 500 mg Tablet 1,000 mg PO TID Xeljanz XR 11 mg tablet extended release 24 hr 11 mg PO QAM Xiidra 5 % Dropperette 1 drp OPB BID Rx Instructions: administer approximately 12 hours apart lidocaine [Salonpas (lidocaine)] 4 % Adhesive Patch,Medicated 1 patch TOPICAL HS Rx Instructions: apply to left hip pain,ok to apply a second patch 4% to affected area hip,leg if needed at night, remove after 12 hours if applied Referrals Referrals: Mac Duncan MD [Primary Care Provider] -
[2024-10-28 14:23] LABS: Hematocrit (blood only) 32.8 % (37.0-47.0); Hemoglobin 10.5 g/dl (12.0-16.0); Immature Granulocytes # (auto) 0.02 K/uL (0.01-0.20); Immature Granulocytes % (auto) 0.3 %; Mean Corpuscular Hemoglobin 31.3 pg (25.0-34.0); Mean Corpuscular Volume 97.6 fL (80.0-100.0); Platelet Count 229 K/uL (130-400); RDW Standard Deviation 52.5 fL (36.4-46.3); Red Blood Count 3.36 M/uL (4.20-5.40); White Blood Count 6.45 K/ul (4.8-10.8)
--- NOTE | 2024-10-28 14:33 | XRay Report ---
XR chest 1V portable CLINICAL HISTORY: Dyspnea COMPARISON STUDY: 10/27/2024 FINDINGS: There is stable cardiomegaly with mild pulmonary vascular congestion. Stable mild stranding at the left lung base with blunting of the left costophrenic angle. No pneumothorax. IMPRESSION: 1. CHF with trace left pleural effusion. 2. Atelectasis versus early pneumonia left lung base. ACT 112: Negative or not required by law. Electronically signed by: Moises Harkins M.D. 10/28/2024 2:31 PM
[2024-10-28 14:45] LABS: Alanine Aminotransferase 7.0 U/L (7-52); Albumin Globulin Ratio 1.4 (0.9-2); Alkaline Phosphatase 41.0 U/L (34-104); Anion Gap 6.0 (3-11); Bilirubin,Total 0.6 mg/dl (0.2-1.0); Blood Urea Nitrogen 19.0 mg/dl (6-23); Calcium 8.8 mg/dl (8.6-10.3); Carbon Dioxide 28.0 mmol/L (21-32); Chloride 106.0 mmol/L (98-107); Creatinine Clr Calc Pharmacy 39.7 ml/min; Globulin 2.5 gm/dl (2.5-4.0); Glucose 144.0 mg/dl (70-99(Fasting)); Potassium 4.0 mmol/L (3.5-5.1); Sodium 140.0 mmol/L (136-145); Total Protein 5.9 gm/dl (6.0-8.3)
[2024-10-28 14:51] LABS: INR 1.0 (0.9-1.1); Prothrombin Time 11.0 Seconds (9.0-12.0)
--- NOTE | 2024-10-28 16:29 | History & Physical Report ---
Date of Service October 28, 2024 History of Present Illness Chief Complaint: Ambulatory dysfunction, R knee pain s/p fall yesterday Primary Care Provider: Mac Duncan MD Allergies Allergy/AdvReac Type Severity Reaction Status Date / Time morphine Allergy Severe Anaphylaxis Verified 07/31/24 15:32 adhesive Allergy Intermediate Tape- rash Verified 07/31/24 15:32 hydroxychloroquine Allergy Intermediate Rash Verified 07/31/24 15:32 Sulfa (Sulfonamide Allergy Intermediate HIVES Verified 07/31/24 15:32 Antibiotics) pregabalin [From Lyrica] AdvReac Severe Edema Verified 07/31/24 15:32 benzonatate AdvReac Intermediate GI upset Verified 07/31/24 15:32 lisinopril AdvReac Intermediate GI Verified 07/31/24 15:32 symptoms, cough shrimp AdvReac Intermediate GI symptoms Verified 07/31/24 15:32 codeine AdvReac Mild Nausea Verified 07/31/24 15:32 Home Medications Medication Instructions Recorded Confirmed Type ascorbic acid (vitamin C) 500 mg 500 mg PO DAILY #30 tabs 05/27/24 10/28/24 Rx tablet (Vitamin C) colesevelam 625 mg tablet 625 mg PO BID #60 tabs 05/27/24 10/28/24 Rx gabapentin 300 mg capsule 300 mg PO BID #60 caps 05/27/24 10/28/24 Rx melatonin 3 mg tablet 6 mg (2 x 3 mg) PO HS PRN Insomnia 05/27/24 10/28/24 Rx #14 tabs polyethylene glycol 3350 17 gram 17 g PO DAILY PRN constipation #14 05/27/24 10/28/24 Rx oral powder packet (Miralax) ea simethicone 80 mg chewable tablet 80 mg PO Q6H PRN Gastrointestinal 05/27/24 10/28/24 Rx Spasms Or Cramping #14 tabs triamcinolone acetonide 0.1 % 1 applic topical BID PRN Rash #30 05/27/24 10/28/24 Rx topical cream grams benzonatate 100 mg capsule 100 mg PO Q8H PRN Cough 07/31/24 10/28/24 History buprenorphine 15 mcg/hour weekly 15 patch topical WK 07/31/24 10/28/24 History transdermal patch calcium 500 mg (as 1 tab PO QDD 07/31/24 10/28/24 History carbonate)-vitamin D3 5 mcg (200 unit) tablet (Oyster Shell Calcium-Vitamin D3) cyanocobalamin (vitamin B-12) 1,000 mcg PO QAM 07/31/24 10/28/24 History 1,000 mcg tablet (Vitamin B-12) diclofenac sodium 1 % topical gel 4 g topical BID PRN RIGHT HIP PAIN 07/31/24 10/28/24 History docusate sodium 100 mg capsule 100 mg PO DAILY Constipation 07/31/24 10/28/24 History (Colace) furosemide 20 mg tablet 20 mg PO QAM 07/31/24 10/28/24 History hydrocortisone 1 % topical cream 1 applic topical BID PRN ITCHY RASH 07/31/24 10/28/24 History hydrocortisone 1 % topical cream 1 applic topical BID PRN 07/31/24 10/28/24 History (Preparation H Hydrocortisone) Hemorrhoids isosorbide mononitrate 30 mg 30 mg PO QAM 07/31/24 10/28/24 History tablet,extended release 24 hr lidocaine 4 % topical patch 1 patch topical .EVERY 24 HOURS 07/31/24 10/28/24 History (Salonpas (lidocaine)) PRN painful joint or extremity metoprolol succinate 50 mg 50 mg PO BID 07/31/24 10/28/24 History tablet,extended release 24 hr polyethylene glycol 400 1 % eye 1 drp ophthalmic (eye) TID PRN Dry 07/31/24 10/28/24 History drops (Visine Dry Eye Relief) Eyes rosuvastatin 40 mg tablet 40 mg PO QAM 07/31/24 10/28/24 History umeclidinium 62.5 mcg-vilanterol 1 inh inhalation HS 07/31/24 10/28/24 History 25 mcg/actuation powdr for inhalation (Anoro Ellipta) acetaminophen 500 mg tablet 1,000 mg PO TID 10/28/24 10/28/24 History aspirin 81 mg tablet,delayed 81 mg PO QAM 10/28/24 10/28/24 History release cholecalciferol (vitamin D3) 25 25 mcg PO QAM 10/28/24 10/28/24 History mcg (1,000 unit) capsule (Vitamin D3) famotidine 20 mg tablet 20 mg PO QAM 10/28/24 10/28/24 History lidocaine 4 % topical patch 1 patch topical HS 10/28/24 10/28/24 History (Salonpas (lidocaine)) lifitegrast 5 % eye drops in a 1 drp OPB BID 10/28/24 10/28/24 History dropperette (Xiidra) [id number] 250 mg-dha 90 1 cap PO QAM 10/28/24 10/28/24 History mg-epa 160 [id number] capsule (Ocuvite Adult 50 Plus) tofacitinib 11 mg tablet,extended 11 mg PO QAM 10/28/24 10/28/24 History release 24 hr (Xeljanz XR) Past Med/Surg History Problem List (Updated 10/28/24 @ 16:04 by Freda Lr MD) Acute pain of right knee (Acute) Elevated brain natriuretic peptide (BNP) level (Acute) Acute hypoxemic respiratory failure (Acute) Ambulatory dysfunction (Acute) Acute CHF (Acute) Skin tear of lower leg without complication (Acute) Contusion of knee, right (Acute) Effusion of right knee (Acute) Fall (Acute) Chronic pain Acute urinary retention Ventricular premature complexes Shingles rash Paroxysmal atrial tachycardia Premature atrial contractions Sinus tachycardia Immunosuppressed status ASCVD (arteriosclerotic cardiovascular disease) Pneumonia (Acute) Weakness (Acute) Ambulatory dysfunction (Acute) DDD (degenerative disc disease), lumbar (Acute) Acute on chronic diastolic congestive heart failure Degenerative disc disease, lumbar Right upper lobe pneumonia Urinary tract infection after period of immobility Acute sepsis Abnormal ankle brachial index (DOROTHEA) (Acute) ISTAP type 3 skin tear of right hand (Acute) 12/16/23 Traumatic open wound of left lower leg with delayed healing (Acute) 12/16/23 Low back pain radiating to right lower extremity Lumbar radiculopathy, right Degenerative lumbar spinal stenosis AAA (abdominal aortic aneurysm) without rupture Cellulitis of lower extremity 11/25/23 Encephalopathy 11/22/23 Back pain Paroxysmal supraventricular tachycardia Chronic diastolic (congestive) heart failure Acute kidney injury superimposed on CKD 11/22/23 Ambulatory dysfunction BERNADINE (acute kidney injury) (Acute) 11/22/23 Bilateral leg weakness (Acute) 11/22/23 Hypertension Hx of rheumatoid arthritis CAD (coronary artery disease) f/u zachary bergeron Hematoma of right lower leg (Acute) 07/18/23 Greater trochanteric pain syndrome Opioid dependence Greater trochanteric bursitis of left hip Rotator cuff arthropathy of left shoulder Mechanical low back pain Medication monitoring encounter Acquired foot deformity Laceration of right knee (Acute) 08/16/21 Pressure ulcer of toe of left foot, stage 4 07/12/21 T12 compression fracture Fever (Acute) 06/23/21 Weakness (Acute) 06/23/21 Lower extremity edema (Chronic) 06/21/21 Acquired hammer toe (Chronic) Neuropathy (Chronic) Stage IV pressure ulcer (Acute) 05/29/21 Pes anserine bursitis Status post right knee replacement Traumatic open wound of right lower leg (Acute) 02/21/21 Immunosuppression due to chronic steroid use Traumatic open wound of right lower leg with delayed healing (Acute) 12/15/20 Laceration of elbow, left (Acute) 11/23/20 Dehydration (Acute) 10/27/20 Pneumonia due to 2019 novel coronavirus (Acute) 10/27/20 Acute respiratory failure with hypoxia 10/27/20 Multifocal pneumonia 10/27/20 Rheumatoid arthritis (Acute) SARS-CoV-2 positive (Acute) 10/17/20 Weakness (Acute) 10/17/20 Fall 10/17/20 Bilateral knee pain History of total right knee replacement Postural imbalance 08/22/20 Entrapment neuropathy of peripheral nerve of lower extremity Venous insufficiency of both lower extremities (Chronic) Traumatic open wound of right lower leg (Acute) 04/12/20 Pes anserinus tendonitis of right lower extremity Left knee DJD Traumatic wound (Acute) 11/11/19 Left knee pain (Chronic) Postoperative seroma (Chronic) L2-4 Lumbar postlaminectomy syndrome (Chronic) Acquired right foot 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 Lumbar compression fracture (Chronic) L1 acute on chronic MRI 03/[address] 10/17/2020 Pes anserine bursitis Right knee pain Degenerative joint disease of knee Myofascial pain (Chronic) Sacroiliitis (Chronic) 11/20/18 Cervical radiculopathy (Chronic) Greater trochanteric bursitis (Chronic) Lumbago (Chronic) Lumbar radiculitis (Chronic) Peripheral neuropathy (Chronic) Facet syndrome, lumbar (Chronic) CAD (coronary artery disease) (Chronic) Osteoarthritis (Chronic) Myocardial infarct, 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) 11/14/17 Hypertension (Chronic) Dyslipidemia (Chronic) Osteoporosis (Chronic) Rheumatoid arthritis of shoulder (Chronic) Lumbar spinal stenosis (Chronic) Medical History Sepsis due to pneumonia Hypoxia Elevated troponin I level 11/22/23 Acute respiratory failure with hypoxemia 10/27/20 CAD (coronary artery disease) s/p 2 stents Open wound right hand, sees wound clinic Sacral neurostimulator in situ instructed to bring remote dos Hx of supraventricular tachycardia follows with [facility] cardiology AAA (abdominal aortic aneurysm) Abdomen/Pelvis CT 11/2023: Stable Right infrarenal aortic aneurysm measures 44 mm GERD (gastroesophageal reflux disease) Hx of migraines Hx of myocardial infarction (~2008) Lumbar spinal stenosis Postlaminectomy syndrome, lumbar region no current issues Dyslipidemia History of COVID-2020- [facility] admission with acute respiratory failure > no residual effects Neuropathy in both legs, rt>lt Right knee pain Status post TKA taking shots due to bursitis (no shots for at least 3 months) Surgical History Hx of toe surgery Bilateral Feet Second and Third Digit Flexor Tenotomy(Bilateral) Hx of colonoscopy Hx of heart artery stent ~2008, [facility], x1 stent, 2/2 [place] ~2011, [facility], x1 stent, 2/2 heart symptoms; f/u zachary bergeron Hx of cardiac cath ~2008, [facility], x1 stent, 2/2 [place] ~2011, [facility] [place], x1 stent, 2/2 heart symptoms; f/u zachary bergeron History of total shoulder replacement Right History of loop recorder no longer working > follows with Dr Bergeron S/P total knee arthroplasty Right History of lumbosacral spine surgery 50+ years for first one, 2nd one 2014, both lower back; flexible rainer and does lesi History of PTCA Remote hx "years ago" History of hysterectomy History of breast biopsy History of tonsillectomy History of adenoidectomy History of angioplasty Family History Father Myocardial infarction Brother Myocardial infarction Other Family history non-contributory Denies family history of Ovarian cancer Prostate cancer Breast cancer Colorectal cancer Social History Smoking Status: Former smoker Tobacco Type: Cigarettes Second Hand Exposure: No; Do You Dip or Chew Tobacco: No; Hx Alcohol Use: Yes Alcohol type: wine Alcohol type Comment: In the evenings. Alcohol Intake Frequency: 4 or More x per/Week Hx Substance Use: No Preferred Language: Bulgarian Communication Ability: Effective Visual Impairment: Limited Hearing Ability: Normal Stonework Supervisor Required: No Beliefs That Will Affect Care: None marital status: Current Living Situation: Personal Care Facility Current Living Situation Comment: [facility] current occupational status: retired How many Children do You have: 7 Feels Safe at Home: Yes Diet: regular caffeine: No during the past year weight has: remained stable Assistive Devices: Walker and Wheelchair Results & Data Results & Data Vital Signs (Past 12 Hours) Vital Signs Temp Pulse Resp BP Pulse Ox O2 Del Method O2 Flow Rate 10/28/24 14:13 95 Nasal Cannula 3 10/28/24 14:01 71 10/28/24 13:55 89 L Room Air 10/28/24 13:55 37 C 75 14 96/57 L 89 L Room Air
--- NOTE | 2024-10-28 17:23 | History & Physical Report ---
Date of Service October 28, 2024 Assessment & Plan (1) Ambulatory dysfunction: (2) Contusion of right knee, subsequent encounter: (3) Acute hypoxemic respiratory failure: (4) Acute on chronic heart failure with preserved ejection fraction: (5) Skin tear of lower leg without complication: (6) Effusion of right knee: (7) Degenerative lumbar spinal stenosis: (8) Fall from standing: Plan Patient 81-year-old female who suffered a fall from standing yesterday and had a significant knee contusion. Patient failed a trial of outpatient management and return to the ED for pain and ambulatory dysfunction. Also noted to be hypoxic possibly due to some decompensated heart failure. Admit to hospital Continue patient's pain control with her buprenorphine patch, add sublingual buprenorphine as needed for breakthrough pain Continue scheduled Tylenol for pain Therapy consultation Case management consultation for possible rehab placement Patient is requiring some oxygen, suspect may be due to some decompensated heart failure, will give additional dose of Lasix and continue her oral Lasix and continue to monitor Monitor blood pressures seems to be fluctuating here in the emergency department overall I believe she will tolerate a little dose of IV Lasix Consult orthopedics. She is seeing [facility] orthopedics in the past. Patient is concerned about knee swelling and the noted hemarthrosis on CAT scan from 10/27/2024 Continue other outpatient medications as ordered will hold Imdur at this time due to slight hypotension Hold parameters on metoprolol per protocol Check orthostatic vitals in a.m. Discussed advanced directives, patient request DNR DNI as per her previous orders. History of Present Illness Chief Complaint: Right knee pain difficulty with walking Primary Care Provider: Mac Duncan MD Patient is an 89-year-old female who lives at [facility] actually had a fall yesterday where she states her knees just kind of buckled underneath her when she was walking to dinner. She was seen in the emergency room. Imaging was negative for acute fracture but she was in a fair amount of pain. It was recommended that she be admitted at that time due to pain and ambulatory dysfunction, however, patient declined hospital admission and attempted to try and manage her pain at home. However today she just really had significant difficulty with pain and ambulation. She felt as though there was some swelling in the right knee as well and return to the emergency room. In the emergency room was noted to be a little bit hypotensive and hypoxic and was placed on some oxygen. Chest x-ray showed possibly little congestion but other laboratory studies were unremarkable. She was referred to our service for ongoing care due to her pain and ambulatory dysfunction. Time my evaluation patient still states that she has a fair amount of pain in the knee. Really concerned about the s welling. She has extremely thin skin and states she has all kinds of contusions on her legs. She denied any lightheadedness or dizziness today. Main reason for returning to the emergency room is that she realized that she was unable to ambulate and the pain was intolerable. She denies any shortness of breath no chest pain. No fever or chills. No cough or cold symptoms. Has been compliant with her medications. Has not noticed any worsening swelling in her lower extremities. Allergies Allergy/AdvReac Type Severity Reaction Status Date / Time morphine Allergy Severe Anaphylaxis Verified 07/31/24 15:32 adhesive Allergy Intermediate Tape- rash Verified 07/31/24 15:32 hydroxychloroquine Allergy Intermediate Rash Verified 07/31/24 15:32 Sulfa (Sulfonamide Allergy Intermediate HIVES Verified 07/31/24 15:32 Antibiotics) pregabalin [From Lyrica] AdvReac Severe Edema Verified 07/31/24 15:32 benzonatate AdvReac Intermediate GI upset Verified 07/31/24 15:32 lisinopril AdvReac Intermediate GI Verified 07/31/24 15:32 symptoms, cough shrimp AdvReac Intermediate GI symptoms Verified 07/31/24 15:32 codeine AdvReac Mild Nausea Verified 07/31/24 15:32 Home Medications Medication Instructions Recorded Confirmed Type ascorbic acid (vitamin C) 500 mg 500 mg PO DAILY #30 tabs 05/27/24 10/28/24 Rx tablet (Vitamin C) colesevelam 625 mg tablet 625 mg PO BID #60 tabs 05/27/24 10/28/24 Rx gabapentin 300 mg capsule 300 mg PO BID #60 caps 05/27/24 10/28/24 Rx melatonin 3 mg tablet 6 mg (2 x 3 mg) PO HS PRN Insomnia 05/27/24 10/28/24 Rx #14 tabs polyethylene glycol 3350 17 gram 17 g PO DAILY PRN constipation #14 05/27/24 10/28/24 Rx oral powder packet (Miralax) ea simethicone 80 mg chewable tablet 80 mg PO Q6H PRN Gastrointestinal 05/27/24 10/28/24 Rx Spasms Or Cramping #14 tabs triamcinolone acetonide 0.1 % 1 applic topical BID PRN Rash #30 05/27/24 10/28/24 Rx topical cream grams benzonatate 100 mg capsule 100 mg PO Q8H PRN Cough 07/31/24 10/28/24 History buprenorphine 15 mcg/hour weekly 15 patch topical WK 07/31/24 10/28/24 History transdermal patch calcium 500 mg (as 1 tab PO QDD 07/31/24 10/28/24 History carbonate)-vitamin D3 5 mcg (200 unit) tablet (Oyster Shell Calcium-Vitamin D3) cyanocobalamin (vitamin B-12) 1,000 mcg PO QAM 07/31/24 10/28/24 History 1,000 mcg tablet (Vitamin B-12) diclofenac sodium 1 % topical gel 4 g topical BID PRN RIGHT HIP PAIN 07/31/24 10/28/24 History docusate sodium 100 mg capsule 100 mg PO DAILY Constipation 07/31/24 10/28/24 History (Colace) furosemide 20 mg tablet 20 mg PO QAM 07/31/24 10/28/24 History hydrocortisone 1 % topical cream 1 applic topical BID PRN ITCHY RASH 07/31/24 10/28/24 History hydrocortisone 1 % topical cream 1 applic topical BID PRN 07/31/24 10/28/24 History (Preparation H Hydrocortisone) Hemorrhoids isosorbide mononitrate 30 mg 30 mg PO QAM 07/31/24 10/28/24 History tablet,extended release 24 hr lidocaine 4 % topical patch 1 patch topical .EVERY 24 HOURS 07/31/24 10/28/24 History (Salonpas (lidocaine)) PRN painful joint or extremity metoprolol succinate 50 mg 50 mg PO BID 07/31/24 10/28/24 History tablet,extended release 24 hr polyethylene glycol 400 1 % eye 1 drp ophthalmic (eye) TID PRN Dry 07/31/24 10/28/24 History drops (Visine Dry Eye Relief) Eyes rosuvastatin 40 mg tablet 40 mg PO QAM 07/31/24 10/28/24 History umeclidinium 62.5 mcg-vilanterol 1 inh inhalation HS 07/31/24 10/28/24 History 25 mcg/actuation powdr for inhalation (Anoro Ellipta) acetaminophen 500 mg tablet 1,000 mg PO TID 10/28/24 10/28/24 History aspirin 81 mg tablet,delayed 81 mg PO QAM 10/28/24 10/28/24 History release cholecalciferol (vitamin D3) 25 25 mcg PO QAM 10/28/24 10/28/24 History mcg (1,000 unit) capsule (Vitamin D3) famotidine 20 mg tablet 20 mg PO QAM 10/28/24 10/28/24 History lidocaine 4 % topical patch 1 patch topical HS 10/28/24 10/28/24 History (Salonpas (lidocaine)) lifitegrast 5 % eye drops in a 1 drp OPB BID 10/28/24 10/28/24 History dropperette (Xiidra) [id number] 250 mg-dha 90 1 cap PO QAM 10/28/24 10/28/24 History mg-epa 160 [id number]-[id number] capsule (Ocuvite Adult 50 Plus) tofacitinib 11 mg tablet,extended 11 mg PO QAM 10/28/24 10/28/24 History release 24 hr (Xeljanz XR) Past Med/Surg History Problem List (Updated 10/28/24 @ 17:36 by Joce Vogel DO) Acute on chronic heart failure with preserved ejection fraction Contusion of right knee, subsequent encounter Acute pain of right knee (Acute) Elevated brain natriuretic peptide (BNP) level (Acute) Acute hypoxemic respiratory failure (Acute) Ambulatory dysfunction (Acute) Acute CHF (Acute) Skin tear of lower leg without complication (Acute) Contusion of knee, right (Acute) Effusion of right knee (Acute) Fall (Acute) Chronic pain Acute urinary retention Ventricular premature complexes Shingles rash Paroxysmal atrial tachycardia Premature atrial contractions Sinus tachycardia Immunosuppressed status ASCVD (arteriosclerotic cardiovascular disease) Pneumonia (Acute) Weakness (Acute) Ambulatory dysfunction (Acute) DDD (degenerative disc disease), lumbar (Acute) Acute on chronic diastolic congestive heart failure Degenerative disc disease, lumbar Right upper lobe pneumonia Urinary tract infection after period of immobility Acute sepsis Abnormal ankle brachial index (DOROTHEA) (Acute) ISTAP type 3 skin tear of right hand (Acute) 12/16/23 Traumatic open wound of left lower leg with delayed healing (Acute) 12/16/23 Low back pain radiating to right lower extremity Lumbar radiculopathy, right Degenerative lumbar spinal stenosis AAA (abdominal aortic aneurysm) without rupture Cellulitis of lower extremity 11/25/23 Encephalopathy 11/22/23 Back pain Paroxysmal supraventricular tachycardia Chronic diastolic (congestive) heart failure Acute kidney injury superimposed on CKD 11/22/23 Ambulatory dysfunction BERNADINE (acute kidney injury) (Acute) 11/22/23 Bilateral leg weakness (Acute) 11/22/23 Hypertension Hx of rheumatoid arthritis CAD (coronary artery disease) f/u zachary bergeron Hematoma of right lower leg (Acute) 07/18/23 Greater trochanteric pain syndrome Opioid dependence Greater trochanteric bursitis of left hip Rotator cuff arthropathy of left shoulder Mechanical low back pain Medication monitoring encounter Acquired foot deformity Laceration of right knee (Acute) 08/16/21 Pressure ulcer of toe of left foot, stage 4 07/12/21 T12 compression fracture Fever (Acute) 06/23/21 Weakness (Acute) 06/23/21 Lower extremity edema (Chronic) 06/21/21 Acquired hammer toe (Chronic) Neuropathy (Chronic) Stage IV pressure ulcer (Acute) 05/29/21 Pes anserine bursitis Status post right knee replacement Traumatic open wound of right lower leg (Acute) 02/21/21 Immunosuppression due to chronic steroid use Traumatic open wound of right lower leg with delayed healing (Acute) 12/15/20 Laceration of elbow, left (Acute) 11/23/20 Dehydration (Acute) 10/27/20 Pneumonia due to 2019 novel coronavirus (Acute) 10/27/20 Acute respiratory failure with hypoxia 10/27/20 Multifocal pneumonia 10/27/20 Rheumatoid arthritis (Acute) SARS-CoV-2 positive (Acute) 10/17/20 Weakness (Acute) 10/17/20 Fall 10/17/20 Bilateral knee pain History of total right knee replacement Postural imbalance 08/22/20 Entrapment neuropathy of peripheral nerve of lower extremity Venous insufficiency of both lower extremities (Chronic) Traumatic open wound of right lower leg (Acute) 04/12/20 Pes anserinus tendonitis of right lower extremity Left knee DJD Traumatic wound (Acute) 11/11/19 Left knee pain (Chronic) Postoperative seroma (Chronic) L2-4 Lumbar postlaminectomy syndrome (Chronic) Acquired right foot 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 Lumbar compression fracture (Chronic) L1 acute on chronic MRI 03/[address] 10/17/2020 Pes anserine bursitis Right knee pain Degenerative joint disease of knee Myofascial pain (Chronic) Sacroiliitis (Chronic) 11/20/18 Cervical radiculopathy (Chronic) Greater trochanteric bursitis (Chronic) Lumbago (Chronic) Lumbar radiculitis (Chronic) Peripheral neuropathy (Chronic) Facet syndrome, lumbar (Chronic) CAD (coronary artery disease) (Chronic) Osteoarthritis (Chronic) Myocardial infarct, 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) 11/14/17 Hypertension (Chronic) Dyslipidemia (Chronic) Osteoporosis (Chronic) Rheumatoid arthritis of shoulder (Chronic) Lumbar spinal stenosis (Chronic) Medical History Sepsis due to pneumonia Hypoxia Elevated troponin I level 11/22/23 Acute respiratory failure with hypoxemia 10/27/20 CAD (coronary artery disease) s/p 2 stents Open wound right hand, sees wound clinic Sacral neurostimulator in situ instructed to bring remote dos Hx of supraventricular tachycardia follows with [facility] cardiology AAA (abdominal aortic aneurysm) Abdomen/Pelvis CT 11/2023: Stable Right infrarenal aortic aneurysm measures 44 mm GERD (gastroesophageal reflux disease) Hx of migraines Hx of myocardial infarction (~2008) Lumbar spinal stenosis Postlaminectomy syndrome, lumbar region no current issues Dyslipidemia History of COVID-2020- [facility] admission with acute respiratory failure > no residual effects Neuropathy in both legs, rt>lt Right knee pain Status post TKA taking shots due to bursitis (no shots for at least 3 months) Surgical History Hx of toe surgery Bilateral Feet Second and Third Digit Flexor Tenotomy(Bilateral) Hx of colonoscopy Hx of heart artery stent ~2008, [facility], x1 stent, 2/2 MD ~2011, [facility] [place], x1 stent, 2/2 heart symptoms; f/u ember salty Hx of cardiac cath ~2008, [facility], x1 stent, 2/2 MD ~2011, [facility] [place], x1 stent, 2/2 heart symptoms; f/u ember salty History of total shoulder replacement Right History of loop recorder no longer working > follows with Dr Bergeron S/P total knee arthroplasty Right History of lumbosacral spine surgery 50+ years for first one, 2nd one 2014, both lower back; flexible rainer and does lesi History of PTCA Remote hx "years ago" History of hysterectomy History of breast biopsy History of tonsillectomy History of adenoidectomy History of angioplasty Family History Father Myocardial infarction Brother Myocardial infarction Other Family history non-contributory Denies family history of Ovarian cancer Prostate cancer Breast cancer Colorectal cancer Social History Smoking Status: Former smoker Tobacco Type: Cigarettes Second Hand Exposure: No; Do You Dip or Chew Tobacco: No; Hx Alcohol Use: Yes Alcohol type: wine Alcohol type Comment: In the evenings. Alcohol Intake Frequency: 4 or More x per/Week Hx Substance Use: No Preferred Language: Kinyarwanda Communication Ability: Effective Visual Impairment: Limited Hearing Ability: Normal Health Physicist Required: No Beliefs That Will Affect Care: None marital status: Current Living Situation: Personal Care Facility Current Living Situation Comment: [facility] current occupational status: retired How many Children do You have: 7 Feels Safe at Home: Yes Diet: regular caffeine: No during the past year weight has: remained stable Assistive Devices: Walker and Wheelchair Review of Systems Review of Systems: Pertinent positive and negative review of systems as mentioned in the HPI Physical Exam Physical Exam: Constitutional: Alert, no acute distress, nontoxic HEENT: Mucous membranes moist. Sclera clear Neck: Soft, no adenopathy Lungs: Decreased breath sounds, prolonged expiratory phase, crackles at bases CV: S1-S2, regular, systolic murmur Abdomen: Soft, nontender, nondistended Extremities: Trace to 1+ pretibial edema Musculoskeletal: Right knee tender to palpation, questionable small effusion, no redness or warmth. Hematoma/contusion over the knee well-healed surgical in cision. Right knee with wound dressing that is clean. Dermatological: Patient with extremely thin skin and multiple hematomas on the lower extremity Neuro: No focal deficits, generally weak Psych: Cooperative, normal mood Results & Data Results & Data Vital Signs (Past 12 Hours) Vital Signs Temp Pulse Resp BP Pulse Ox O2 Del Method O2 Flow Rate 10/28/24 16:30 75 18 120/62 96 10/28/24 16:03 66 17 113/57 L 95 10/28/24 15:30 64 16 108/63 96 10/28/24 15:00 66 17 99/54 L 10/28/24 14:13 95 Nasal Cannula 3 10/28/24 14:01 71 10/28/24 13:55 89 L Room Air 10/28/24 13:55 37 C 75 14 96/57 L 89 L Room Air Diagnostic Findings Reviewed imaging, laboratory and diagnostic studies. Pertinent findings as below. Personally reviewed EKG, sinus rhythm no acute ST-T wave changes, PVCPersonally reviewed chest x-ray some lower lobe congestion possibly small effusion Reviewed CT report of the right knee from 10/27/2024 showing no acute fracture, knee prosthesis intact did show a moderate lipo hemarthrosis Reviewed additional imaging from yesterday. No other fractures noted on pelvic x-ray or knee x-ray Chest x-ray yesterday did not appreciate congestion WBCs 6.4 Hemoglobin 10.5, stable Platelets of 229 Electrolytes within normal range Creatinine 0.93 Glucose 144 BNP 253 Code Status & VTE Plan VTE Prophylaxis Plan VTE Prophylaxis will be ordered: Yes (8) Fall from standing Encounter type: initial encounter Qualified Code(s): W19.XXXA - Unspecified fall, initial encounter
[2024-10-28] MEDS ORDERED: ALUMINUM/MAGNESIUM SUSP 30 ML UDC PO PRN (22:51)
[2024-10-28] MEDS ORDERED: POLYETHYLENE GLYCOL OP PRN (22:51)
[2024-10-28] MEDS ORDERED: ONDANSETRON INJ 2 MG/ML 2 ML VIAL IV PRN (22:51)
[2024-10-28] MEDS: FUROSEMIDE INJ 20 MG/2 ML VIAL IV ONE (23:17)
[2024-10-28] MEDS: ACETAMINOPHEN 500 MG TAB PO SCH (23:17)
[2024-10-28] MEDS: HEPARIN SOD 5,000 UNIT/0.5 ML VIAL SQ SCH (23:17)
[2024-10-28] MEDS: METOPROLOL SUCC 50MG EXT REL TAB PO SCH (23:18)
[2024-10-28] MEDS: UMECLIDINIUM/VILANTEROL 62.5/25MCG 7 PUFFS/INHALER INH SCH (23:18)
[2024-10-28] MEDS: MELATONIN 3 MG TAB PO PRN (23:18)
[2024-10-28] MEDS: CHECK BUPRENORPHINE PATCH SCH (23:19)
[2024-10-28] MEDS: GABAPENTIN 300 MG CAP PO SCH (23:19)
[2024-10-28] MEDS: ARTIFICIAL TEARS OP PRN (23:20)
[2024-10-28] MEDS: LIDOCAINE 5% 1 PATCH TD PRN (23:35)
[2024-10-29] MEDS ORDERED: NON-FORMULARY MEDICATION (Mv-Mn-Om3-Dha-Epa-Fish-Lut-Zea [Ocuvite Adult 50 Plus] 250 mg (9 PO SCH (09:00)
[2024-10-29] MEDS: FAMOTIDINE 20 MG TAB PO SCH (09:08)
[2024-10-29] MEDS: ROSUVASTATIN CALCIUM 20 MG TAB PO SCH (09:08)
[2024-10-29] MEDS: DOCUSATE SODIUM 100 MG CAP PO SCH (09:08)
[2024-10-29] MEDS: ASCORBIC ACID 500 MG TAB PO SCH (09:09)
[2024-10-29] MEDS: ASPIRIN 81 MG ECTAB PO SCH (09:09)
[2024-10-29] MEDS: FUROSEMIDE 20 MG TAB PO SCH (09:09)
[2024-10-29] MEDS: CHOLECALCIFEROL 25 MCG (1000 UNITS) TAB PO SCH (09:09)
--- NOTE | 2024-10-29 09:19 | Orthopedic Consultation ---
Date of Service October 29, 2024 Assessment & Plan (1) Contusion of right knee, subsequent encounter: * Case/imaging reviewed and discussed with Dr Sadler * Right knee contusion overlying total knee replacement, no fracture identified on imaging * Recommend conservative management of knee contusion * Pain control, ice, activity modification * Weight bearing status: WBAT * Daily treatment: Physical Therapy/ Occupational Therapy per protocol * Pain control * Disposition: TBD * Remainder care per primary team * Will follow peripherally, plan for office follow-up in the coming weeks for progress check. History of Present Illness Reason for Consultation: . Right knee pain Requesting Physician: . Attending Physician: Joce Vogel DO . Patient is a 89y/o female with right knee pain. PMH including CAD, AAA, GERD, HTN, CKD, CHF, right foot drop. Surgical history including right total knee arthroplasty with Dr. Sadler several years ago. No reported issues with the knee replacement until now. Presents to hospital with right knee pain after recent fall. Reports ambulating to her facilities cafeteria when she fell forward landing directly on both knees. Pain and difficulty ambulating following injury. Initially seen 10/27, x-ray and CT right knee negative for fracture or malalignment. Admission was recommended secondary to ambulatory dysfunction however patient preferred to return home, however has had difficulty ambulating since then and returned to hospital yesterday for further evaluation and admission. Orthopedics consulted for management recommendations. At time of exam patient lying comfortably in bed, no acute distress. Reports moderate pain of the right knee at rest that increases with attempted ambulation, difficulty bending the knee secondary to pain. Known right dropfoot, peripheral neuropathy. Denies tingling or numbness of bilateral lower extremity. Uses a walker at baseline. Allergies Allergy/AdvReac Type Severity Reaction Status Date / Time morphine Allergy Severe Anaphylaxis Verified 07/31/24 15:32 adhesive Allergy Intermediate Tape- rash Verified 07/31/24 15:32 hydroxychloroquine Allergy Intermediate Rash Verified 07/31/24 15:32 Sulfa (Sulfonamide Allergy Intermediate HIVES Verified 07/31/24 15:32 Antibiotics) pregabalin [From Lyrica] AdvReac Severe Edema Verified 07/31/24 15:32 benzonatate AdvReac Intermediate GI upset Verified 07/31/24 15:32 lisinopril AdvReac Intermediate GI Verified 07/31/24 15:32 symptoms, cough shrimp AdvReac Intermediate GI symptoms Verified 07/31/24 15:32 codeine AdvReac Mild Nausea Verified 07/31/24 15:32 Home Medications Medication Instructions Recorded Confirmed Type ascorbic acid (vitamin C) 500 mg 500 mg PO DAILY #30 tabs 05/27/24 10/28/24 Rx tablet (Vitamin C) colesevelam 625 mg tablet 625 mg PO BID #60 tabs 05/27/24 10/28/24 Rx gabapentin 300 mg capsule 300 mg PO BID #60 caps 05/27/24 10/28/24 Rx melatonin 3 mg tablet 6 mg (2 x 3 mg) PO HS PRN Insomnia 05/27/24 10/28/24 Rx #14 tabs polyethylene glycol 3350 17 gram 17 g PO DAILY PRN constipation #14 05/27/24 10/28/24 Rx oral powder packet (Miralax) ea simethicone 80 mg chewable tablet 80 mg PO Q6H PRN Gastrointestinal 05/27/24 10/28/24 Rx Spasms Or Cramping #14 tabs triamcinolone acetonide 0.1 % 1 applic topical BID PRN Rash #30 05/27/24 10/28/24 Rx topical cream grams benzonatate 100 mg capsule 100 mg PO Q8H PRN Cough 07/31/24 10/28/24 History buprenorphine 15 mcg/hour weekly 15 patch topical WK 07/31/24 10/28/24 History transdermal patch calcium 500 mg (as 1 tab PO QDD 07/31/24 10/28/24 History carbonate)-vitamin D3 5 mcg (200 unit) tablet (Oyster Shell Calcium-Vitamin D3) cyanocobalamin (vitamin B-12) 1,000 mcg PO QAM 07/31/24 10/28/24 History 1,000 mcg tablet (Vitamin B-12) diclofenac sodium 1 % topical gel 4 g topical BID PRN RIGHT HIP PAIN 07/31/24 10/28/24 History docusate sodium 100 mg capsule 100 mg PO DAILY Constipation 07/31/24 10/28/24 History (Colace) furosemide 20 mg tablet 20 mg PO QAM 07/31/24 10/28/24 History hydrocortisone 1 % topical cream 1 applic topical BID PRN ITCHY RASH 07/31/24 10/28/24 History hydrocortisone 1 % topical cream 1 applic topical BID PRN 07/31/24 10/28/24 History (Preparation H Hydrocortisone) Hemorrhoids isosorbide mononitrate 30 mg 30 mg PO QAM 07/31/24 10/28/24 History tablet,extended release 24 hr lidocaine 4 % topical patch 1 patch topical .EVERY 24 HOURS 07/31/24 10/28/24 History (Salonpas (lidocaine)) PRN painful joint or extremity metoprolol succinate 50 mg 50 mg PO BID 07/31/24 10/28/24 History tablet,extended release 24 hr polyethylene glycol 400 1 % eye 1 drp ophthalmic (eye) TID PRN Dry 07/31/24 10/28/24 History drops (Visine Dry Eye Relief) Eyes rosuvastatin 40 mg tablet 40 mg PO QAM 07/31/24 10/28/24 History umeclidinium 62.5 mcg-vilanterol 1 inh inhalation HS 07/31/24 10/28/24 History 25 mcg/actuation powdr for inhalation (Anoro Ellipta) acetaminophen 500 mg tablet 1,000 mg PO TID 10/28/24 10/28/24 History aspirin 81 mg tablet,delayed 81 mg PO QAM 10/28/24 10/28/24 History release cholecalciferol (vitamin D3) 25 25 mcg PO QAM 10/28/24 10/28/24 History mcg (1,000 unit) capsule (Vitamin D3) famotidine 20 mg tablet 20 mg PO QAM 10/28/24 10/28/24 History lidocaine 4 % topical patch 1 patch topical HS 10/28/24 10/28/24 History (Salonpas (lidocaine)) lifitegrast 5 % eye drops in a 1 drp OPB BID 10/28/24 10/28/24 History dropperette (Xiidra) [id number] 250 mg-dha 90 1 cap PO QAM 10/28/24 10/28/24 History mg-epa 160 bb-bddu-nbtj-zeax capsule (Ocuvite Adult 50 Plus) tofacitinib 11 mg tablet,extended 11 mg PO QAM 10/28/24 10/28/24 History release 24 hr (Xeljanz XR) Past Med/Surg History Problem List (Updated 10/28/24 @ 17:36 by Joce Vogel DO) Acute on chronic heart failure with preserved ejection fraction Contusion of right knee, subsequent encounter Acute pain of right knee (Acute) Elevated brain natriuretic peptide (BNP) level (Acute) Acute hypoxemic respiratory failure (Acute) Ambulatory dysfunction (Acute) Acute CHF (Acute) Skin tear of lower leg without complication (Acute) Contusion of knee, right (Acute) Effusion of right knee (Acute) Fall (Acute) Chronic pain Acute urinary retention Ventricular premature complexes Shingles rash Paroxysmal atrial tachycardia Premature atrial contractions Sinus tachycardia Immunosuppressed status ASCVD (arteriosclerotic cardiovascular disease) Pneumonia (Acute) Weakness (Acute) Ambulatory dysfunction (Acute) DDD (degenerative disc disease), lumbar (Acute) Acute on chronic diastolic congestive heart failure Degenerative disc disease, lumbar Right upper lobe pneumonia Urinary tract infection after period of immobility Acute sepsis Abnormal ankle brachial index (ODROTHEA) (Acute) ISTAP type 3 skin tear of right hand (Acute) 12/16/23 Traumatic open wound of left lower leg with delayed healing (Acute) 12/16/23 Low back pain radiating to right lower extremity Lumbar radiculopathy, right Degenerative lumbar spinal stenosis AAA (abdominal aortic aneurysm) without rupture Cellulitis of lower extremity 11/25/23 Encephalopathy 11/22/23 Back pain Paroxysmal supraventricular tachycardia Chronic diastolic (congestive) heart failure Acute kidney injury superimposed on CKD 11/22/23 Ambulatory dysfunction BERNADINE (acute kidney injury) (Acute) 11/22/23 Bilateral leg weakness (Acute) 11/22/23 Hypertension Hx of rheumatoid arthritis CAD (coronary artery disease) f/u zachary bergeron Hematoma of right lower leg (Acute) 07/18/23 Greater trochanteric pain syndrome Opioid dependence Greater trochanteric bursitis of left hip Rotator cuff arthropathy of left shoulder Mechanical low back pain Medication monitoring encounter Acquired foot deformity Laceration of right knee (Acute) 08/16/21 Pressure ulcer of toe of left foot, stage 4 07/12/21 T12 compression fracture Fever (Acute) 06/23/21 Weakness (Acute) 06/23/21 Lower extremity edema (Chronic) 06/21/21 Acquired hammer toe (Chronic) Neuropathy (Chronic) Stage IV pressure ulcer (Acute) 05/29/21 Pes anserine bursitis Status post right knee replacement Traumatic open wound of right lower leg (Acute) 02/21/21 Immunosuppression due to chronic steroid use Traumatic open wound of right lower leg with delayed healing (Acute) 12/15/20 Laceration of elbow, left (Acute) 11/23/20 Dehydration (Acute) 10/27/20 Pneumonia due to 2019 novel coronavirus (Acute) 10/27/20 Acute respiratory failure with hypoxia 10/27/20 Multifocal pneumonia 10/27/20 Rheumatoid arthritis (Acute) SARS-CoV-2 positive (Acute) 10/17/20 Weakness (Acute) 10/17/20 Fall 10/17/20 Bilateral knee pain History of total right knee replacement Postural imbalance 08/22/20 Entrapment neuropathy of peripheral nerve of lower extremity Venous insufficiency of both lower extremities (Chronic) Traumatic open wound of right lower leg (Acute) 04/12/20 Pes anserinus tendonitis of right lower extremity Left knee DJD Traumatic wound (Acute) 11/11/19 Left knee pain (Chronic) Postoperative seroma (Chronic) L2-4 Lumbar postlaminectomy syndrome (Chronic) Acquired right foot 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 Lumbar compression fracture (Chronic) L1 acute on chronic MRI 03/[address] 10/17/2020 Pes anserine bursitis Right knee pain Degenerative joint disease of knee Myofascial pain (Chronic) Sacroiliitis (Chronic) 11/20/18 Cervical radiculopathy (Chronic) Greater trochanteric bursitis (Chronic) Lumbago (Chronic) Lumbar radiculitis (Chronic) Peripheral neuropathy (Chronic) Facet syndrome, lumbar (Chronic) CAD (coronary artery disease) (Chronic) Osteoarthritis (Chronic) Myocardial infarct, 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) 11/14/17 Hypertension (Chronic) Dyslipidemia (Chronic) Osteoporosis (Chronic) Rheumatoid arthritis of shoulder (Chronic) Lumbar spinal stenosis (Chronic) Medical History Sepsis due to pneumonia Hypoxia Elevated troponin I level 11/22/23 Acute respiratory failure with hypoxemia 10/27/20 CAD (coronary artery disease) s/p 2 stents Open wound right hand, sees wound clinic Sacral neurostimulator in situ instructed to bring remote dos Hx of supraventricular tachycardia follows with [facility] cardiology AAA (abdominal aortic aneurysm) Abdomen/Pelvis CT 11/2023: Stable Right infrarenal aortic aneurysm measures 44 mm GERD (gastroesophageal reflux disease) Hx of migraines Hx of myocardial infarction (~2008) Lumbar spinal stenosis Postlaminectomy syndrome, lumbar region no current issues Dyslipidemia History of COVID-19 2020- [facility] admission with acute respiratory failure > no residual effects Neuropathy in both legs, rt>lt Right knee pain Status post TKA taking shots due to bursitis (no shots for at least 3 months) Surgical History Hx of toe surgery Bilateral Feet Second and Third Digit Flexor Tenotomy(Bilateral) Hx of colonoscopy Hx of heart artery stent ~2008, [facility], x1 stent, 2/2 [place] ~2011, [facility], x1 stent, 2/2 heart symptoms; f/u zachary bergeron Hx of cardiac cath ~2008, [facility], x1 stent, 2/2 [place] ~2011, [facility], x1 stent, 2/2 heart symptoms; f/u zachary bergeron History of total shoulder replacement Right History of loop recorder no longer working > follows with Dr Bergeron S/P total knee arthroplasty Right History of lumbosacral spine surgery 50+ years for first one, 2nd one 2014, both lower back; flexible rainer and does lesi History of PTCA Remote hx "years ago" History of hysterectomy History of breast biopsy History of tonsillectomy History of adenoidectomy History of angioplasty Family History Father Myocardial infarction Brother Myocardial infarction Other Family history non-contributory Denies family history of Ovarian cancer Prostate cancer Breast cancer Colorectal cancer Social History Smoking Status: Former smoker Tobacco Type: Cigarettes Smoking End Date: 40 yrs ago; Second Hand Exposure: No; Do You Dip or Chew Tobacco: No; Hx Alcohol Use: Yes Alcohol type: wine Alcohol type Comment: In the evenings. Alcohol Intake Frequency: 4 or More x per/Week Hx Substance Use: No Preferred Language: [place] Communication Ability: Effective Visual Impairment: Limited Hearing Ability: Normal Improvement Leader Required: No Beliefs That Will Affect Care: None marital status: Current Living Situation: Personal Care Facility Current Living Situation Comment: [facility] current occupational status: retired How many Children do You have: 7 Feels Safe at Home: Yes Safety Concerns: Feels Safe At This Time Diet: regular caffeine: No during the past year weight has: remained stable Assistive Devices: Glasses and Walker Review of Systems All systems reviewed & are unremarkable except as noted in HPI & below. Physical Exam . * General: Alert and oriented, no acute distress * Constitutional: well-developed, well-nourished. * Respiratory: Normal respiratory effort, no distress * Gastrointestinal: No tenderness to palpation, no rigidity or guarding. * Skin: No rash or lesion. * Neurologic: Grossly normal * Musculoskeletal: Right knee with well-healed TKA incision. Scattered ecchymoses and mild soft tissue swelling of the anterior knee and distal thigh region. Otherwise no obvious deformity or overlying skin changes to the right leg. Moderate TTP patellofemoral joint, medial joint line, anterior knee region. Otherwise no specific tenderness of the proximal thigh, distal thigh, lower leg, foot/ankle. ROM knee limited secondary to pain, 0-80 degrees flexion. AROM ankle dorsiflexion limited secondary to known dropfoot, plantarflexion intact. Sensation intact plantar/dorsal foot. Brisk capillary refill. Results & Data Results & Data Laboratory Results . Diagnostic Findings 10/28 CT right knee IMPRESSION: 1. Status post total knee joint replacement.The prosthesis is intact- Stable 2. Moderate knee lipohemarthrosis seen- Not seen in prior Radiograph. 3. No acute fracture or dislocation- Stable. 10/27 XR R knee IMPRESSION: Lipohemarthrosis. No fracture visualized by radiograph. Recommend CT. PG Care Time/CCT Total # of Minutes Spent Total Time Spent with Patient: Total time spent is greater than 50% in coordination of care (as documented) at patient's floor/unit and/or counseling patient: Coding [place] [address] IN/OBS CONSULT LVL 3,45M Patient Type Established History Problem Focused Exam Problem Focused Medical Decision Making Straight Forward Diagnoses Contusion of right knee, subsequent encounter S80.01XD
[2024-10-29] MEDS: METOPROLOL SUCC 25MG EXT REL TAB PO SCH ×2 (09:53→21:09)
[2024-10-29] MEDS: REMOVE LIDODERM PATCH SCH (10:00)
[2024-10-29] MEDS ORDERED: LIDOCAINE 5% 1 PATCH TD PRN (11:22)
--- NOTE | 2024-10-29 11:44 | Hospitalist Progress Note ---
Date of Service October 29, 2024 Assessment & Plan (1) Ambulatory dysfunction: (2) Contusion of right knee, subsequent encounter: (3) Acute hypoxemic respiratory failure: (4) Acute on chronic heart failure with preserved ejection fraction: (5) Skin tear of lower leg without complication: (6) Effusion of right knee: (7) Degenerative lumbar spinal stenosis: (8) Fall from standing: Plan Patient with significant ambulatory dysfunction and pain due to fall and bilateral knee contusions right greater than left as well as left knee abrasion. Continue therapies Continue pain control with sublingual buprenorphine Communication with case management, anticipate patient will need half-way at [facility] Patient still little hypotensive, decreased metoprolol today, continue to monitor blood pressure Continue diuretic Could titrate oxygen to off as able, encourage incentive spirometry at bedside and updated the plan of care as well Reviewed orthopedic consultation, no interventions planned, symptomatic care. Topical wound care for knee abrasion Admission and Anticipated Discharge Date Admission Date: October 28, 2024 Subjective Patient states still a fair amount of knee pain. Nurse reports is kind of drowsy with pain meds. Definitely needing a significant amount of support. Physical Exam Physical Exam: Constitutional: Alert, a little bit drowsy HEENT: Mucous membranes moist. Lungs: Decreased breath sounds CV: S1-S2, regular Abdomen: Soft, nontender, nondistended Extremities: Trace pretibial edema Musculoskeletal: Mild effusion right knee with contusion and tenderness. Skin tear/abrasion left knee Neuro: No focal deficits, generally weak Psych: Cooperative, normal mood Results & Data Results & Data Vital Signs (Past 12 Hours) Vital Signs Temp Pulse Resp BP BP Pulse Ox O2 Del Method 10/29/24 08:36 104/62 100/56 L 10/29/24 07:20 36.6 C 69 16 99/61 L 94 Nasal Cannula O2 Flow Rate 10/29/24 08:36 10/29/24 07:20 2 Diagnostic Findings Reviewed imaging, laboratory and diagnostic studies. Pertinent findings as below. Hemoglobin 10.5 Electrolytes stable Creatinine 0.93 (8) Fall from standing Encounter type: initial encounter Qualified Code(s): W19.XXXA - Unspecified fall, initial encounter
[2024-10-29] MEDS: MUPIROCIN 2% OINT 22 GM TUBE EXT SCH (13:56)
[2024-10-29] MEDS ORDERED: NALOXONE HCL 0.4 MG/1 ML VIAL/CARP IV PRN (14:37)
[2024-10-29] MEDS: CALCIUM 600MG + VIT D 400 IU TAB PO SCH (17:15)
[2024-10-29] MEDS ORDERED: REMOVE LIDODERM PATCH SCH (21:00)
[2024-10-30] MEDS: REMOVE LIDODERM PATCH SCH (08:41)
[2024-10-30] MEDS: POLYETHYLENE (MIRALAX) 17 GM PACK PO PRN (08:42)
--- NOTE | 2024-10-30 11:17 | Hospitalist Progress Note ---
Date of Service October 30, 2024 Assessment & Plan (1) Ambulatory dysfunction: (2) Contusion of right knee, subsequent encounter: (3) Acute hypoxemic respiratory failure: (4) Acute on chronic heart failure with preserved ejection fraction: (5) Skin tear of lower leg without complication: (6) Effusion of right knee: (7) Degenerative lumbar spinal stenosis: (8) Fall from standing: Plan Patient significantly improving. Pain better controlled with tramadol, continue Blood pressure significantly improved today, continued lower doses of antihypertensives Continue therapies Case management coordinated transfer to Health system will be able to accept her tomorrow. Admission and Anticipated Discharge Date Admission Date: October 28, 2024 Subjective Patient much more awake and alert this morning already. Pain seems to be controlled with the tramadol. Less drowsy. No lightheadedness or dizziness. Physical Exam Physical Exam: Constitutional: Alert, nontoxic HEENT: Mucous membranes moist. Lungs: Clear to auscultation, decreased, no wheezes rales or rhonchi CV: S1-S2, regular Abdomen: Soft, nontender, nondistended Extremities: Trace pretibial edema, hematoma left lateral zabala, skin tear left knee, mild effusion right knee with contusion Neuro: No focal deficits Psych: Cooperative, normal mood Results & Data Results & Data Vital Signs (Past 12 Hours) Vital Signs Temp Pulse Resp BP Pulse Ox O2 Del Method O2 Flow Rate 10/30/24 10:03 16 95 Nasal Cannula 2 10/30/24 10:02 90 16 88 L Room Air 10/30/24 07:11 36.9 C 73 16 124/64 96 Nasal Cannula 2 10/29/24 23:18 36.7 C 73 14 103/59 L 96 Nasal Cannula 2 (8) Fall from standing Encounter type: initial encounter Qualified Code(s): W19.XXXA - Unspecified fall, initial encounter
[2024-10-30 16:07] LABS: Appearance Urine Clear (Clear); Bacteria Urine Automated None Seen (None Seen); Cast Urine Automated 0-2 /lpf (0-2); Epithelial Cell Urine Auto 0-2 /hpf (0-2); Glucose Urine UA Negative (Negative); RBC Urine Automated 0-2 /hpf (0-2); WBC Urine Automated 0-5 /hpf (0-5)
[2024-10-30 23:34] VITALS: RESP 16; TEMP 98.1
[2024-10-31 07:27] VITALS: BP 159/77; PULSE 76; O2SAT 100
--- NOTE | 2024-10-31 07:37 | Electrocardiogram Report ---
Test Reason : Blood Pressure : */* mmHG Vent. Rate : 73 BPM Atrial Rate : 73 BPM P-R Int : 162 ms QRS Dur : 86 ms QT Int : 394 ms P-R-T Axes : -12 -12 -16 degrees QTcB Int : 434 ms Sinus rhythm with occasional Premature ventricular complexes Moderate voltage criteria for LVH, may be normal variant ( R in aVL , Amor product ) Inferior infarct , age undetermined Abnormal ECG When compared with ECG of 31-Jul-2024 11:29, Sinus rhythm has replaced Atrial fibrillation Inferior infarct is now Present Nonspecific T wave abnormality, worse in Lateral leads Confirmed by Nayan Ramirez ([id number]) on 10/31/2024 7:37:24 AM Referred By: Confirmed By: Nayan Ramirez
--- NOTE | 2024-10-31 09:06 | Discharge Summary ---
Discharge Summary Date of Service October 31, 2024 Principal Dx & Hospital Course #1 = Principal Diagnosis (1) Ambulatory dysfunction: (2) Contusion of right knee, subsequent encounter: (3) Acute hypoxemic respiratory failure: (4) Acute on chronic heart failure with preserved ejection fraction: (5) Skin tear of lower leg without complication: (6) Effusion of right knee: (7) Degenerative lumbar spinal stenosis: (8) Fall from standing: Plan Patient 89-year-old female who presented to the emergency room with knee pain and ambulatory dysfunction after a fall the previous day. Patient had attempted to manage at home at her personal care setting but was in too much pain to take care of herself. Patient was admitted to the hospital. Initially trialed some sublingual buprenorphine to manage her pain since she is on the buprenorphine patch. However this made her significantly sedated. Patient did much better with low-dose tramadol. She was seen by orthopedics. They recommended symptomatic care. She is seen by therapies. She was still requiring a fair amount of assistance. It was recommended that she go to nursing home for additional recovery and rehabilitation. Case management was involved in her care. They coordinated transfer to [facility]. The patient also had some hypoxia initially when she presented. Most likely due to some slight decompensated heart failure. She was given 1 dose of additional diuretics. She is also placed on fluid restriction and with these interventions she was able to be titrated off oxygen on the day of discharge. Patient was also noted to be hypotensive. Question if this may have been contributing to her weakness and fall. Imdur was discontinued. Metoprolol was dosing was decreased. She responded well to this and on day of discharge her blood pressure is well-controlled. She will follow-up with her outpatient providers. Phone call to patient's this morning on the day of discharge. Aware transfer to [facility] this morning. Will plan to meet her there. Notes For Next Care Provider Continue with topical wound care for skin tears Medication Changes From Visit Imdur discontinued Metoprolol dosing decreased Tramadol as needed for pain Admission HPI Per Admitting Provider Patient is an 89-year-old female who lives at [facility] actually had a fall yesterday where she states her knees just kind of buckled underneath her when she was walking to dinner. She was seen in the emergency room. Imaging was negative for acute fracture but she was in a fair amount of pain. It was recommended that she be admitted at that time due to pain and ambulatory dysfunction, however, patient declined hospital admission and attempted to try and manage her pain at home. However today she just really had significant difficulty with pain and ambulation. She felt as though there was some swelling in the right knee as well and return to the emergency room. In the emergency room was noted to be a little bit hypotensive and hypoxic and was placed on some oxygen. Chest x-ray showed possibly little congestion but other laboratory studies were unremarkable. She was referred to our service for ongoing care due to her pain and ambulatory dysfunction. Time my evaluation patient still states that she has a fair amount of pain in the knee. Really concerned about the swelling. She has extremely thin skin and states she has all kinds of contusions on her legs. She denied any lightheadedness or dizziness today. Main reason for returning to the emergency room is that she realized that she was unable to ambulate and the pain was intolerable. She denies any shortness of breath no chest pain. No fever or chills. No cough or cold symptoms. Has been compliant with her medications. Has not noticed any worsening swelling in her lower extremities. Admission Exam Per Admitting Provider See H&P Discharge Exam Constitutional: Alert, nontoxic HEENT: Mucous membranes moist. Lungs: Decreased breath sounds, few crackles at bases CV: S1-S2, regular Abdomen: Soft, nontender, nondistended Extremities: No significant edema Musculoskeletal: Contusion right knee with mild effusion Left knee with skin tear, dressing clean and dry Neuro: No focal deficits Psych: Cooperative, normal mood Updated Medication List Medication Instructions Recorded Confirmed Type gabapentin 300 mg capsule 300 mg PO BID #60 caps 05/27/24 10/28/24 Rx melatonin 3 mg tablet 6 mg (2 x 3 mg) PO HS PRN Insomnia 05/27/24 10/28/24 Rx #14 tabs triamcinolone acetonide 0.1 % 1 applic topical BID PRN Rash #30 05/27/24 10/28/24 Rx topical cream grams benzonatate 100 mg capsule 100 mg PO Q8H PRN Cough 07/31/24 10/28/24 History diclofenac sodium 1 % topical gel 4 g topical BID PRN RIGHT HIP PAIN 07/31/24 10/28/24 History hydrocortisone 1 % topical cream 1 applic topical BID PRN ITCHY RASH 07/31/24 10/28/24 History hydrocortisone 1 % topical cream 1 applic topical BID PRN 07/31/24 10/28/24 History (Preparation H Hydrocortisone) Hemorrhoids isosorbide mononitrate 30 mg 30 mg PO QAM 07/31/24 10/28/24 History tablet,extended release 24 hr metoprolol succinate 50 mg 50 mg PO BID 07/31/24 10/28/24 History tablet,extended release 24 hr lidocaine 4 % topical patch 1 patch topical HS 10/28/24 10/28/24 History (Salonpas (lidocaine)) acetaminophen 500 mg tablet 1,000 mg (2 x 500 mg) PO TID #100 10/31/24 Rx tabs ascorbic acid (vitamin C) 500 mg 500 mg PO DAILY #30 tabs 10/31/24 Rx tablet (Vitamin C) aspirin 81 mg tablet,delayed 81 mg PO QAM #60 tabs 10/31/24 Rx release buprenorphine 15 mcg/hour weekly 1 patch topical WK #4 ea 10/31/24 Rx transdermal patch calcium 500 mg (as 1 tab PO QDD #30 tabs 10/31/24 Rx carbonate)-vitamin D3 5 mcg (200 unit) tablet (Oyster Shell Calcium-Vitamin D3) cholecalciferol (vitamin D3) 25 25 mcg PO QAM #30 caps 10/31/24 Rx mcg (1,000 unit) capsule (Vitamin D3) colesevelam 625 mg tablet 625 mg PO BID #60 tabs 10/31/24 Rx cyanocobalamin (vitamin B-12) 1,000 mcg PO QAM #30 tabs 10/31/24 Rx 1,000 mcg tablet (Vitamin B-12) docusate sodium 100 mg capsule 100 mg PO DAILY Constipation #30 10/31/24 Rx (Colace) caps famotidine 20 mg tablet 20 mg PO QAM #30 tabs 10/31/24 Rx furosemide 20 mg tablet 20 mg PO QAM #30 tabs 10/31/24 Rx lidocaine 4 % topical patch 1 patch topical .EVERY 24 HOURS 10/31/24 Rx (Salonpas (lidocaine)) PRN painful joint or extremity #30 ea lifitegrast 5 % eye drops in a 1 drp OPB BID #20 ea 10/31/24 Rx dropperette (Xiidra) metoprolol succinate 25 mg 12.5 mg (1/2 x 25 mg) PO BID #30 10/31/24 Rx tablet,extended release 24 hr tabs [id number] 250 mg-dha 90 1 cap PO QAM #30 caps 10/31/24 Rx mg-epa 160 [id number] capsule (Ocuvite Adult 50 Plus) polyethylene glycol 3350 17 gram 17 g PO DAILY PRN constipation #30 10/31/24 Rx oral powder packet (Miralax) ea polyethylene glycol 400 1 % eye 1 drp ophthalmic (eye) TID PRN Dry 10/31/24 Rx drops (Visine Dry Eye Relief) Eyes #15 mL rosuvastatin 40 mg tablet 40 mg PO QAM #30 tabs 10/31/24 Rx simethicone 80 mg chewable tablet 80 mg PO Q6H PRN Gastrointestinal 10/31/24 Rx Spasms Or Cramping #14 tabs tofacitinib 11 mg tablet,extended 11 mg PO QAM #1 tab 10/31/24 Rx release 24 hr (Xeljanz XR) tramadol 50 mg tablet 25 mg (1/2 x 50 mg) PO Q8H PRN 10/31/24 Rx pain #10 tabs umeclidinium 62.5 mcg-vilanterol 1 inh inhalation HS #60 ea 10/31/24 Rx 25 mcg/actuation powdr for inhalation (Anoro Ellipta) Hospital Stay Data Consultations 10/28/24 16:06 ED Decision to Admit Stat 10/29/24 08:00 Consult Orthopedic Surgery Routine Diagnostic Imagining Performed Reviewed imaging, laboratory and diagnostic studies. Pertinent findings as below. Urinalysis negative for signs of infection WBCs 6.4 Hemoglobin 10.5 Electrolytes stable Creatinine 0.93 Pending Results Patient Have Any Pending Studies at Discharge: No Discharge Instructions Given to Patient (Per Discharging Provider) Continue your therapies to build strength I anticipate your pain will slowly improve over the next few weeks Attempt to minimize additional pain medicines so you can participate in therapies without being too drowsy Total Time Total Time Spent Total Time Spent (In Minutes): 36
--- NOTE | 2024-10-31 10:16 | Orthopedic Progress Note ---
Date of Service October 31, 2024 Assessment & Plan (1) Contusion of right knee, subsequent encounter: (2) Rotator cuff arthropathy of left shoulder: (3) Left knee DJD: Plan * Continue Current Treatment * Recommend continued conservative management of right knee contusion. Pain control, ice, activity as tolerated * Will proceed with cortisone injection of left shoulder and left knee today. See procedure note * Weight bearing status: WBAT * Daily treatment: Physical Therapy/ Occupational Therapy per protocol * Pain control * DVT prophylaxis per primary team * Disposition: Rehab * F/u in office in the coming weeks for hip injections * Remainder care per primary team * Stable for discharge from ortho standpoint, further planning per primary team Subjective . Active Problems: Right knee contusion with history of TKA, left knee osteoarthritis, left shoulder rotator cuff arthropathy 89y/o female with right knee contusion, also treated routinely in office for left knee osteoarthritis and left shoulder RTC arthropathy with Dr. Giraldo. Last injections given in July. Regarding the right knee contusion she is still having significant pain and difficulty ambulating, is set to discharge to rehab today. Patient was due to be seen in office for left knee and shoulder injections next week, but given that she is due for injections and is here currently we will proceed with injections prior to discharge. Denies fever/chil ls, chest pain/SOB, nausea/vomiting. Otherwise no complaints. Review of Systems All systems reviewed & are unremarkable except as noted in HPI & below. Physical Exam . * General: Alert and oriented, no acute distress * Constitutional: well-developed, well-nourished. * Respiratory: Normal respiratory effort, no distress * Gastrointestinal: No tenderness to palpation, no rigidity or guarding. * Skin: No rash or lesion. * Neurologic: Grossly normal * Musculoskeletal: - Right knee: Right knee with mild diffuse soft tissue swelling and ecchymosis. Otherwise no specific deformity or overlying skin changes to the right leg. Diffuse TTP patellofemoral region, anterior knee, medial/lateral joint lines. AROM extension/flexion intact, painful through arc of motion. Sensation intact plantar/dorsal foot. Brisk cap refill. - Left knee: Skin tears to the proximal tibia as well as distal thigh regions with localized ecchymosis. Otherwise no obvious deformity of the left leg noted. TTP patellofemoral, medial/lateral joint lines. AROM knee flexion intact, painful. AROM foot/ankle intact. Sensation intact plantar/dorsal foot. Brisk capillary refill. - Left shoulder: No obvious deformity or overlying skin changes to the left shoulder region. Diffuse TTP anterior shoulder region, RTC tendon. AROM shoulder flexion and abduction limited secondary to pain and weakness. AROM elbow flexion/extension, hand motions intact. Sensation intact radial/median/ulnar nerve distributions. Brisk capillary refill. Results & Data Results & Data Laboratory Results . Diagnostic Findings . PG Care Time/CCT Total # of Minutes Spent Total Time Spent with Patient: Total time spent is greater than 50% in coordination of care (as documented) at patient's floor/unit and/or counseling patient: Coding [place] [address] SUB INP/OBS CARE 2/35MIN Patient Type Established History Expanded Problem Focused Exam Expanded Problem Focused Medical Decision Making Moderate Complexity Diagnoses Contusion of right knee, subsequent encounter S80.01XD Rotator cuff arthropathy of left shoulder M12.812 Left knee DJD M17.12
--- NOTE | 2024-10-31 10:18 | Procedure Note ---
Procedure Note Date of Service October 31, 2024 Procedures: Left knee injection, left subacromial injection After informed consent by the patient, the left shoulder posterior subacromial space was injected today. The injection site was prepped with a Betadine and alcohol swab. A mixture of 1 mL of 40 mg of Kenalog and 4 mL of 0.25% Marcaine was injected into the site using sterile technique. A Band-Aid was placed. The patient tolerated the procedure well and there were no complications. After informed consent by the patient, the left knee was injected today. The injection site was prepped with a Betadine and alcohol swab. A mixture of 1 mL of 40 mg of Kenalog and 4 mL of 0.25% Marcaine was injected into the site using sterile technique. A Band-Aid was placed. The patient tolerated the procedure well and there were no complications. Coding Additional Codes Date of Service ([facility].SURGERY)
[2024-10-31] MEDS: BUPIVACAINE 0.25% PF 30 ML VIAL INFIL ONE (10:20)
[2024-10-31] MEDS: TRIAMCINOLONE ACET 40 MG/ML VIAL IA ONE (10:20)
[2024-11-03] MEDS ORDERED: REMOVE & WASTE BUTRANS PATCH 1 EA EA SCH (08:59)
[2024-11-03] MEDS ORDERED: BUPRENORPHINE 5 MCG/HR TDSY TD SCH (09:00)
[2024-11-03] MEDS ORDERED: BUPRENORPHINE 10 MCG/HR TDSY TD SCH (09:00)
== END 2024-10-31 10:30 | DRG 291 ==
LOC: ED 13:46 → 3E 17:16

== ENCOUNTER 2025-02-26 05:29 | Inpatient (IN) ==
[2025-02-26] MEDS ORDERED: VANCOMYCIN CONSULT ACTIVE PRN (06:31)
--- NOTE | 2025-02-26 07:15 | Emergency Department Note ---
Impression & Plan Cellulitis of right leg, Weakness ED Provider Note Provider: Ayaz Grewal MD CHIEF COMPLAINT: Weakness, right leg pain HISTORY OF PRESENT ILLNESS: Patient is a 89-year-old female presenting from [facility] today with reports of developing weakness since yesterday and increasing right lower leg pain. Patient denies trauma to her knowledge. Staff/EMS report the patient evidently had a near syncopal episode last night while on the toilet and was noted to be somewhat hypotensive and pale. Was started on doxycycline with concern for possible infection of the right leg. She states she has had these before. She complains of generalized weakness just not feeling well. No fevers reported. Denies significant show with the left leg. States has had increased swelling of the right lower leg. Does not extend above the knee mainly in the right calf region. Does have some bandaging in this area. She denies chest pain or abdominal pain or nausea to me. Denies shortness of breath. No falls or head injuries reported. PAST MEDICAL HISTORY: As noted above MEDICATIONS: Reviewed medication list from facility SOCIAL HISTORY: Resides at [facility] PHYSICAL EXAM: GENERAL: alert and oriented in no acute distress on stretcher but fatigued in appearance easily arousable to verbal stimuli Head: normocephalic and atraumatic EYES: No injection, discharge or icterus. EOMI. NECK: Trachea midline. ENT: Mucous membranes pink and moist. LUNGS: Airway patent. No retractions. Breath sounds clear HEART: Irregular/tachycardic rate and rhythm. ABDOMEN: Soft and non-tender, without guarding or rebound. SKIN: Acyanotic, warm, dry, without rashes EXTREMITIES: With some swelling of the left lower extremity. Minimal to no erythema of the distal lower leg. Patient with significant swelling of the right lower leg overlying the calf to the foot. There are several large bullae here with what looks like serous contents. No crepitus. There is a small proximally 3 mm wound to the right mid lateral calf trace discharge. NEUROLOGICAL: No focal deficits moving all extremities. No aphasia. No facial droop. No slurred speech. EK bpm atrial fibrillation. No acute ST segment elevation or depression with QTc 432. CONTINUOUS CARDIAC MONITORING: was ordered and showed a heart rate of 100s bpm in atrial fibrillation Patient's laboratory studies and imaging reviewed. Differential includes Cellulitis, abscess, MRSA infection, DVT, necrotizing fasciitis, dermatitis, drug eruption, allergic reaction, fluid overload, CVA/ICH, as well as other pathologies. IMPRESSION/MEDICAL DECISION MAKING: Patient increased weakness and fatigue associated with pain of the right lower leg. Does have significant erythema as well as a distal bullae and some swelling of this right leg. Small several millimeter wound bandaged in the right lateral mid calf. Trace discharge. No significant tenderness extending from the knee or proximal. Slight swelling to the left leg but minimal. Does have a history of CHF but not hypoxic here. History of A-fib well but not on blood thinners. Significant concern this could be cellulitis or infection developing. Was started on 1 dose of doxycycline prior to arrival. Ordered dose of cefepime and vancomycin here for broad antibacterial coverage including MRSA. There is no significant trauma here however. Not having significant focal deficits send no head trauma reported and do not believe we need imaging of the head. Denies chest pain or shortness of breath or abdominal pain to me. Will attempt to obtain an ultrasound of the right lower extremity as able to exclude DVT but this seems less likely. Does have some bullae here but I doubt this is necrotizing fasciitis. Seems likely more fluid overload and infectious in nature. Does not appear to be purulent bulla. Symptoms do not seem to be particularly focused around joints. Blood cultures lactate and wound culture was sent. Due to concerns for developing sepsis. Patient requested something for the pain was given a small amount of fentanyl discussed with pharmacy as she has received this before without issues. Do of some question of the could be some component of fluid overload and BNP was sent as well as chest x-ray obtained. Did take several times for nursing/phlebotomy to obtain blood work. Blood work of leukocytosis of 14.5 again seems likely infectious. No anemia. Lactate not elevated. ESR and CRP are both elevated. Respiratory viral panel is negative. No significant transaminitis or electrolyte abnormality or new renal dysfunction today. BNP and troponin just slightly elevated. Chest x-ray appears fairly stable according to report from previous. Given that she does have some swelling. Blood pressures improved and stable here with elevated lactate will trial small dose of IV Lasix here. She is normally on a daily dose every morning anyway. Will bring in given the extent of the infection and concerns for her weakness from the leg infection. Again, with vancomycin and cefepime. Hospitalist team was contacted. Ultrasound pending of the right lower extremity as well to exclude DVT but I feel this less likely given testing so far. Later ultrasound returns negative for DVT. Patient was having improvement of her discomfort after the fentanyl. Discussed with her recommendations for observation and while not thrilled with the idea was agreeable. Hospitalist team was consulted. DIAGNOSIS: Right lower extremity cellulitis, weakness DISPOSITION: Hospitalist will evaluate Patient was agreeable with this plan. Past Med/Surg History Problem List (Updated 02/26/25 @ 08:05 by Ayaz Grewal M.D.) Weakness (Acute) Cellulitis of right leg (Acute) Greater trochanteric bursitis of right hip Osteoarthritis of left glenohumeral joint Acute on chronic heart failure with preserved ejection fraction Contusion of right knee, subsequent encounter Acute pain of right knee (Acute) Elevated brain natriuretic peptide (BNP) level (Acute) Acute hypoxemic respiratory failure (Acute) Ambulatory dysfunction (Acute) Acute CHF (Acute) Chronic pain Acute urinary retention Ventricular premature complexes Shingles rash Paroxysmal atrial tachycardia Premature atrial contractions Sinus tachycardia Immunosuppressed status ASCVD (arteriosclerotic cardiovascular disease) Pneumonia (Acute) Weakness (Acute) Ambulatory dysfunction (Acute) DDD (degenerative disc disease), lumbar (Acute) Acute on chronic diastolic congestive heart failure Degenerative disc disease, lumbar Right upper lobe pneumonia Urinary tract infection after period of immobility Acute sepsis Abnormal ankle brachial index (DOROTHEA) (Acute) ISTAP type 3 skin tear of right hand (Acute) 12/16/23 Traumatic open wound of left lower leg with delayed healing (Acute) 12/16/23 Low back pain radiating to right lower extremity Lumbar radiculopathy, right Degenerative lumbar spinal stenosis AAA (abdominal aortic aneurysm) without rupture Cellulitis of lower extremity 11/25/23 Encephalopathy 11/22/23 Back pain Paroxysmal supraventricular tachycardia Chronic diastolic (congestive) heart failure Acute kidney injury superimposed on CKD 11/22/23 Ambulatory dysfunction BERNADINE (acute kidney injury) (Acute) 11/22/23 Bilateral leg weakness (Acute) 11/22/23 Hypertension Hx of rheumatoid arthritis CAD (coronary artery disease) f/u [facility] Hematoma of right lower leg (Acute) 07/18/23 Greater trochanteric pain syndrome Opioid dependence Greater trochanteric bursitis of left hip Rotator cuff arthropathy of left shoulder Mechanical low back pain Medication monitoring encounter Acquired foot deformity Laceration of right knee (Acute) 08/16/21 Pressure ulcer of toe of left foot, stage 4 07/12/21 T12 compression fracture Fever (Acute) 06/23/21 Weakness (Acute) 06/23/21 Lower extremity edema (Chronic) 06/21/21 Acquired hammer toe (Chronic) Neuropathy (Chronic) Stage IV pressure ulcer (Acute) 05/29/21 Pes anserine bursitis Status post right knee replacement Traumatic open wound of right lower leg (Acute) 02/21/21 Immunosuppression due to chronic steroid use Traumatic open wound of right lower leg with delayed healing (Acute) 12/15/20 Laceration of elbow, left (Acute) 11/23/20 Dehydration (Acute) 10/27/20 Pneumonia due to 2019 novel coronavirus (Acute) 10/27/20 Acute respiratory failure with hypoxia 10/27/20 Multifocal pneumonia 10/27/20 Rheumatoid arthritis (Acute) SARS-CoV-2 positive (Acute) 10/17/20 Weakness (Acute) 10/17/20 Fall 10/17/20 Bilateral knee pain History of total right knee replacement Postural imbalance 08/22/20 Entrapment neuropathy of peripheral nerve of lower extremity Venous insufficiency of both lower extremities (Chronic) Traumatic open wound of right lower leg (Acute) 04/12/20 Pes anserinus tendonitis of right lower extremity Left knee DJD Traumatic wound (Acute) 11/11/19 Left knee pain (Chronic) Postoperative seroma (Chronic) L2-4 Lumbar postlaminectomy syndrome (Chronic) Acquired right foot 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 Lumbar compression fracture (Chronic) L1 acute on chronic MRI 03/[address] 10/17/2020 Pes anserine bursitis Right knee pain Degenerative joint disease of knee Myofascial pain (Chronic) Sacroiliitis (Chronic) 11/20/18 Cervical radiculopathy (Chronic) Greater trochanteric bursitis (Chronic) Lumbago (Chronic) Lumbar radiculitis (Chronic) Peripheral neuropathy (Chronic) Facet syndrome, lumbar (Chronic) CAD (coronary artery disease) (Chronic) Osteoarthritis (Chronic) Myocardial infarct, 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) 11/14/17 Hypertension (Chronic) Dyslipidemia (Chronic) Osteoporosis (Chronic) Rheumatoid arthritis of shoulder (Chronic) Lumbar spinal stenosis (Chronic) Medical History Sepsis due to pneumonia Hypoxia Elevated troponin I level 11/22/23 Acute respiratory failure with hypoxemia 10/27/20 CAD (coronary artery disease) s/p 2 stents Open wound right hand, sees wound clinic Sacral neurostimulator in situ instructed to bring remote dos Hx of supraventricular tachycardia follows with [facility] cardiology AAA (abdominal aortic aneurysm) Abdomen/Pelvis CT 11/2023: Stable Right infrarenal aortic aneurysm measures 44 mm GERD (gastroesophageal reflux disease) Hx of migraines Hx of myocardial infarction (~2008) Lumbar spinal stenosis Postlaminectomy syndrome, lumbar region no current issues Dyslipidemia History of COVID-2020- [facility] admission with acute respiratory failure > no residual effects Neuropathy in both legs, rt>lt Right knee pain Status post TKA taking shots due to bursitis (no shots for at least 3 months) Surgical History Hx of toe surgery Bilateral Feet Second and Third Digit Flexor Tenotomy(Bilateral) Hx of colonoscopy Hx of heart artery stent ~2008, [facility], x1 stent, 2/2 MT ~2011, [facility], x1 stent, 2/2 heart symptoms; f/u [facility] Hx of cardiac cath ~2008, [facility], x1 stent, 2/2 MT ~2011, [facility], x1 stent, 2/2 heart symptoms; f/u em[facility] History of total shoulder replacement Right History of loop recorder no longer working > follows with Dr Pa S/P total knee arthroplasty Right History of lumbosacral spine surgery 50+ years for first one, 2nd one 2014, both lower back; flexible rainer and does lesi History of PTCA Remote hx "years ago" History of hysterectomy History of breast biopsy History of tonsillectomy History of adenoidectomy History of angioplasty Family History Father Myocardial infarction Brother Myocardial infarction Other Family history non-contributory Denies family history of Ovarian cancer Prostate cancer Breast cancer Colorectal cancer Social History Smoking Status: Never smoker Tobacco Type: Cigarettes Second Hand Exposure: No; Do You Dip or Chew Tobacco: No; Hx Alcohol Use: Yes Alcohol type: wine Alcohol type Comment: In the evenings. 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 Required: No Beliefs That Will Affect Care: None marital status: Current Living Situation: Personal Care Facility Current Living Situation Comment: [facility] current occupational status: retired How many Children do You have: 7 Feels Safe at Home: Yes Diet: regular caffeine: No during the past year weight has: remained stable Assistive Devices: Glasses, Walker and Wheelchair Allergies Allergies Allergy/AdvReac Type Severity Reaction Status Date / Time morphine Allergy Severe Anaphylaxis Verified 07/31/24 15:32 adhesive Allergy Intermediate Tape- rash Verified 07/31/24 15:32 hydroxychloroquine Allergy Intermediate Rash Verified 07/31/24 15:32 Sulfa (Sulfonamide Allergy Intermediate HIVES Verified 07/31/24 15:32 Antibiotics) pregabalin [From Lyrica] AdvReac Severe Edema Verified 07/31/24 15:32 benzonatate AdvReac Intermediate GI upset Verified 07/31/24 15:32 lisinopril AdvReac Intermediate GI Verified 07/31/24 15:32 symptoms, cough shrimp AdvReac Intermediate GI symptoms Verified 07/31/24 15:32 codeine AdvReac Mild Nausea Verified 07/31/24 15:32 Home Meds Previous Rx's Medication Instructions Recorded gabapentin 300 mg capsule 300 mg PO BID #60 caps 05/27/24 melatonin 3 mg tablet 6 mg (2 x 3 mg) PO HS PRN Insomnia 05/27/24 #14 tabs acetaminophen 500 mg tablet 1,000 mg (2 x 500 mg) PO TID #100 10/31/24 tabs ascorbic acid (vitamin C) 500 mg 500 mg PO DAILY #30 tabs 10/31/24 tablet (Vitamin C) aspirin 81 mg tablet,delayed 81 mg PO QAM #60 tabs 10/31/24 release buprenorphine 15 mcg/hour weekly 1 patch topical WK #4 ea 10/31/24 transdermal patch calcium 500 mg (as 1 tab PO QDD #30 tabs 10/31/24 carbonate)-vitamin D3 5 mcg (200 unit) tablet (Oyster Shell Calcium-Vitamin D3) cholecalciferol (vitamin D3) 25 25 mcg PO QAM #30 caps 10/31/24 mcg (1,000 unit) capsule (Vitamin D3) colesevelam 625 mg tablet 625 mg PO BID #60 tabs 10/31/24 cyanocobalamin (vitamin B-12) 1,000 mcg PO QAM #30 tabs 10/31/24 1,000 mcg tablet (Vitamin B-12) docusate sodium 100 mg capsule 100 mg PO DAILY Constipation #30 10/31/24 (Colace) caps famotidine 20 mg tablet 20 mg PO QAM #30 tabs 10/31/24 furosemide 20 mg tablet 20 mg PO QAM #30 tabs 10/31/24 lidocaine 4 % topical patch 1 patch topical .EVERY 24 HOURS 10/31/24 (Salonpas (lidocaine)) PRN painful joint or extremity #30 ea lifitegrast 5 % eye drops in a 1 drp OPB BID #20 ea 10/31/24 dropperette (Xiidra) metoprolol succinate 25 mg 12.5 mg (1/2 x 25 mg) PO BID #30 10/31/24 tablet,extended release 24 hr tabs [id number] 250 mg-dha 90 1 cap PO QAM #30 caps 10/31/24 mg-epa 160 [id number]-[id number]-zeax capsule (Ocuvite Adult 50 Plus) polyethylene glycol 3350 17 gram 17 g PO DAILY PRN constipation #30 10/31/24 oral powder packet (Miralax) ea polyethylene glycol 400 1 % eye 1 drp ophthalmic (eye) TID PRN Dry 10/31/24 drops (Visine Dry Eye Relief) Eyes #15 mL rosuvastatin 40 mg tablet 40 mg PO QAM #30 tabs 10/31/24 simethicone 80 mg chewable tablet 80 mg PO Q6H PRN Gastrointestinal 10/31/24 Spasms Or Cramping #14 tabs tofacitinib 11 mg tablet,extended 11 mg PO QAM #1 tab 10/31/24 release 24 hr (Xeljanz XR) tramadol 50 mg tablet 25 mg (1/2 x 50 mg) PO Q8H PRN 10/31/24 pain #10 tabs umeclidinium 62.5 mcg-vilanterol 1 inh inhalation HS #60 ea 10/31/24 25 mcg/actuation powdr for inhalation (Anoro Ellipta) Results & Data (ED) Vital Signs Vital Signs - 24 hr 02/26/25 05:38 02/26/25 05:39 02/26/25 06:43 Temperature 36.8 C Temperature Source Oral Pulse Rate 102 H 101 H Pulse Rate [Finger] 107 H Pulse Rate from SpO2 Sensor Respiratory Rate 18 18 Respiratory Effort / Characteristics Non-Labored Spontaneous Respiratory Depth Normal Respiratory Pattern Regular Blood Pressure 135/72 Blood Pressure [Right Arm] 134/61 Blood Pressure Mean 93 Blood Pressure Mean [Right Arm] 85 Pulse Oximetry 98 93 Oxygen Delivery Method Room Air Sepsis Recent Fever Within 48 Hours No Sepsis New/Unexplained Change in Mental Status No Sepsis Action Taken by Nursing No Action Required 02/26/25 06:45 02/26/25 06:45 02/26/25 07:00 Temperature Temperature Source Pulse Rate 93 H 111 H Pulse Rate [Finger] Pulse Rate from SpO2 Sensor 73 Respiratory Rate 23 27 H Respiratory Effort / Characteristics Respiratory Depth Respiratory Pattern Blood Pressure 120/57 L Blood Pressure [Right Arm] Blood Pressure Mean 66 Blood Pressure Mean [Right Arm] Pulse Oximetry 94 69 L Oxygen Delivery Method Sepsis Recent Fever Within 48 Hours Sepsis New/Unexplained Change in Mental Status Sepsis Action Taken by Nursing 02/26/25 07:00 02/26/25 07:30 02/26/25 07:31 Temperature Temperature Source Pulse Rate 103 H Pulse Rate [Finger] Pulse Rate from SpO2 Sensor 86 Respiratory Rate 17 Respiratory Effort / Characteristics Respiratory Depth Respiratory Pattern Blood Pressure 140/74 111/72 Blood Pressure [Right Arm] Blood Pressure Mean 93 91 Blood Pressure Mean [Right Arm] Pulse Oximetry 94 Oxygen Delivery Method Sepsis Recent Fever Within 48 Hours Sepsis New/Unexplained Change in Mental Status Sepsis Action Taken by Nursing 02/26/25 08:00 02/26/25 08:00 Temperature Temperature Source Pulse Rate 106 H Pulse Rate [Finger] Pulse Rate from SpO2 Sensor 87 Respiratory Rate 21 Respiratory Effort / Characteristics Respiratory Depth Respiratory Pattern Blood Pressure 121/62 Blood Pressure [Right Arm] Blood Pressure Mean 82 Blood Pressure Mean [Right Arm] Pulse Oximetry 95 Oxygen Delivery Method Room Air Sepsis Recent Fever Within 48 Hours Sepsis New/Unexplained Change in Mental Status Sepsis Action Taken by Nursing Laboratory Data 02/26/25 07:20 02/26/25 07:20 Lab Results 02/26/25 02/26/25 Range/Units 06:42 07:20 WBC 14.54 H (4.8-10.8) K/ul RBC 4.37 (4.20-5.40) M/uL Hgb 13.8 (12.0-16.0) g/dL Hct 42.5 (37.0-47.0) % MCV 97.3 (80.0-100.0) fL MCH 31.6 (25.0-34.0) pg MCHC 32.5 (32.0-36.0) g/dL RDW Std Deviation 54.6 H (36.4-46.3) fL RDW Coeff of Bryan 15.0 H (11.5-14.5) % Plt Count 223 (130-400) K/uL MPV 9.4 (9.4-12.4) fL Immature Gran % (Auto) 1.1 % Neut % (Auto) 88.2 % Lymph % (Auto) 3.7 % Russell % (Auto) 6.7 % Eos % (Auto) 0.0 % Baso % (Auto) 0.3 % Neut # (Auto) 12.83 H (1.40-6.50) K/uL Lymph # (Auto) 0.54 L (1.20-3.40) K/uL Russell # (Auto) 0.97 H (0.11-0.59) K/uL Eos # (Auto) 0.00 (0.00-0.50) K/uL Baso # (Auto) 0.04 (0.00-0.20) K/uL Immature Gran # (Auto) 0.16 (0.01-0.20) K/uL ESR 58 H (0-30) mm/hr PT 10.5 (9.0-12.0) Seconds INR 1.0 (0.9-1.1) Sodium 137 (136-145) mmol/L Potassium 4.6 (3.5-5.1) mmol/L Chloride 103 (98-107) mmol/L Carbon Dioxide 25 (21-32) mmol/L Anion Gap 9 (3-11) BUN 31 H (6-23) mg/dl Creatinine 0.90 (0.6-1.2) mg/dl Est Cr Clr Drug Dosing 40.8 ml/min eGFR 61.11 BUN/Creatinine Ratio 34.4 H (10-20) Glucose 164 H (70-99(Fasting)) mg/dl Lactate 1.5 (0.4-2.0) mmol/L Calcium 9.2 (8.6-10.3) mg/dl Magnesium 2.2 (1.7-2.4) mg/dl Total Bilirubin 0.9 (0.2-1.0) mg/dl AST 13 (13-39) U/L ALT 7 (7-52) U/L Alkaline Phosphatase 56 (34-104) U/L Troponin I High Sens 34.2 H (0-14) pg/ml C-Reactive Protein 17.80 H (0-0.5) mg/dl B-Natriuretic Peptide 335 H (0-100) pg/ml Total Protein 7.1 (6.0-8.3) gm/dl Albumin 3.9 (3.4-5.0) gm/dl Globulin 3.2 (2.5-4.0) gm/dl Albumin/Globulin Ratio 1.2 (0.9-2) Procalcitonin 0.52 H (0-0.5) ng/ml TSH 1.993 (0.300-4.500) uIu/ml Adenovirus (PCR) Not Detected (NotDetected) B. pertussis DNA (PCR) Not Detected (NotDetected) B.parapertussis DNA PCR Not Detected (NotDetected) C. pneumoniae DNA (PCR) Not Detected (NotDetected) Coronavirus OC43 (PCR) Not Detected (NotDetected) Coronavirus HKU1 (PCR) Not Detected (NotDetected) Coronavirus 229E (PCR) Not Detected (NotDetected) SARS-CoV-2 (PCR) Not Detected (NotDetected) Coronavirus NL63 (PCR) Not Detected (NotDetected) Human Metapneumovir PCR Not Detected (NotDetected) Influenza Type A (PCR) Not Detected (NotDetected) Influenza Type B (PCR) Not Detected (NotDetected) M. pneumoniae (PCR) Not Detected (NotDetected) Parainfluenza 1 (PCR) Not Detected (NotDetected) Parainfluenza 2 (PCR) Not Detected (NotDetected) Parainfluenza 3 (PCR) Not Detected (NotDetected) Parainfluenza 4 (PCR) Not Detected (NotDetected) RSV (PCR) Not Detected (NotDetected) Entero/Rhino (PCR) Not Detected (NotDetected) Administered Medications Discontinued Medications Fentanyl Citrate (Fentanyl Citrate Pf 100 Mcg/2 Ml Vial) 25 mcg IV NOW STA Stop: 02/26/25 06:15 Last Admin: 02/26/25 06:25 Dose: 25 mcg Documented By: LAF Furosemide (Furosemide Inj 20 Mg/2 Ml Vial) 20 mg IV ONE ONE Stop: 02/26/25 08:09 Last Admin: 02/26/25 08:14 Dose: 20 mg Documented By: CAP Cefepime HCl (Maxipime 2000mg) 2,000 mg in 20 mls @ 5 mls/min IV NOW STA; Protocol Stop: 02/26/25 06:19 Last Admin: 02/26/25 07:29 Dose: 5 mls/min Documented By: CAP Vancomycin HCl 1,500 mg/ (Sodium Chloride) 530 mls @ 200 mls/hr IV NOW ONE Stop: 02/26/25 09:09 Last Admin: 02/26/25 07:29 Dose: 200 mls/hr Documented By: CAP Imaging Data Radiologist's Impression: Chest X-Ray 02/26/25 06:14 EXAM: XR chest 1V portable CLINICAL HISTORY: weakness TECHNIQUE: An X-ray image of the chest is obtained in AP projection. 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 Left midlung zone atelectatic changes. Right lower zone paracardiac opacities and interstitial coarsening. No evidence of right pleural effusion or pleural thickening. Heart and Mediastinum: Mild cardiomegaly with curvilinear calcifications of the thoracic aorta Prosthetic shadow projected on left cardiac border No mediastinal widening or masses. No hilar or mediastinal lymphadenopathy. 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 Diffuse atherosclerotic calcifications of the axillary arteries IMPRESSION: 1. Still noted right lower zone paracardiac opacities and interstitial coarsening, Could be inflammatory or interstitial and clinical correlation is recommended. 2. Obliterated left costophrenic angle likely by mild pleural effusion/thickening. Unchanged. 3. Left midlung zone atelectatic changes. 4. The rest of the study findings are stable. Electronically signed by Alan Pineda 02-26-2025 07:35 AM Tibia/Fibula X-Ray 02/26/25 06:14 EXAM: XR tibia fibula RT 2V CLINICAL HISTORY: swelling, wound red TECHNIQUE: X-ray right tibia and fibula, 2 views: AP (Anteroposterior) and lateral projections. COMPARISON: None. FINDINGS: Bone and joints: Total knee replacement with intact prosthesis, no signs of active osseous infection. Mild bony osteopenia. The visualized tibia and fibula are otherwise intact. No evidence of fracture or dislocation. No focal bone lesions are identified. Preserved ankle articulation. Soft Tissue: Soft tissues appear normal with no significant swelling. Advanced atherosclerotic calcifications of the leg arteries. Mild apparent cutaneous irregularities of the posterior aspect of the distal leg could be related to technical factors. IMPRESSION: 1. No acute fracture or dislocation. No focal bone lesion 2. Advanced atherosclerotic calcifications of the leg arteries. 3. Total knee replacement with intact prosthesis, no signs of active osseous infection. 4. Mild bony osteopenia. Disclaimer: A subtle bone abnormality or fracture may not be readily apparent on X-rays, thus clinical correlation and further imaging including follow-up CT, MRI, or follow-up X-rays are advised as needed. Electronically signed by Alan Pineda 02-26-2025 07:44 AM Discharge Plan Visit Data Chief Complaint: Weakness Stated Complaint: WEAKNESS, TROUBLE AMBULATING ED Provider: Ayaz Grewal Discharge Problem: Cellulitis of right leg, Weakness Patient Disposition: Being Evaluated by Hospitalist Condition: Fair Forms Stand Alone Forms: [facility] Prescriptions Prescriptions: No Action melatonin 3 mg Tablet 6 mg PO HS PRN (Reason: Insomnia) Qty: 14 0RF gabapentin 300 mg capsule 300 mg PO BID Qty: 60 0RF metoprolol succinate 25 mg Tablet Extended Release 24 Hr 12.5 mg PO BID Qty: 30 0RF tramadol 50 mg Tablet 25 mg PO Q8H PRN (Reason: pain) Qty: 10 0RF lidocaine [Salonpas (lidocaine)] 4 % Adhesive Patch,Medicated 1 patch TOPICAL .EVERY 24 HOURS PRN (Reason: painful joint or extremity) Qty: 30 0RF polyethylene glycol 3350 [Miralax] 17 gram Powder In Packet 17 g PO DAILY PRN (Reason: constipation) Qty: 30 0RF cyanocobalamin (vitamin B-12) [Vitamin B-12] 1,000 mcg Tablet 1,000 mcg PO QAM Qty: 30 0RF aspirin 81 mg tablet,delayed release (DR/EC) 81 mg PO QAM Qty: 60 0RF acetaminophen 500 mg Tablet 1,000 mg PO TID Qty: 100 0RF famotidine 20 mg tablet 20 mg PO QAM Qty: 30 0RF ascorbic acid (vitamin C) [Vitamin C] 500 mg Tablet 500 mg PO DAILY Qty: 30 0RF colesevelam 625 mg tablet 625 mg PO BID Qty: 60 0RF docusate sodium [Colace] 100 mg capsule 100 mg PO DAILY Qty: 30 0RF furosemide 20 mg tablet 20 mg PO QAM Qty: 30 0RF simethicone 80 mg Tablet,Chewable 80 mg PO Q6H PRN (Reason: Gastrointestinal Spasms Or Cramping) Qty: 14 0RF cholecalciferol (vitamin D3) [Vitamin D3] 25 mcg (1,000 unit) capsule 25 mcg PO QAM Qty: 30 0RF rosuvastatin 40 mg tablet 40 mg PO QAM Qty: 30 0RF calcium carbonate-vitamin D3 [Oyster Shell Calcium-Vit D3] 500 mg-5 mcg (200 unit) tablet 1 tab PO QDD Qty: 30 0RF buprenorphine 15 mcg/hour patch weekly 1 patch topical WK Qty: 4 0RF Rx Instructions: CHANGE ON TUESDAYS umeclidinium-vilanterol [Anoro Ellipta] 62.5-25 mcg/actuation Blister With Device 1 inh INHALATION HS Qty: 60 0RF Xeljanz XR 11 mg tablet extended release 24 hr 11 mg PO QAM Qty: 1 0RF Xiidra 5 % Dropperette 1 drp OPB BID Qty: 20 0RF Rx Instructions: administer approximately 12 hours apart Visine Dry Eye Relief 1 % Drops 1 drp OPHTHALMIC (EYE) TID PRN (Reason: Dry Eyes) Qty: 15 0RF Ocuvite Adult 50 Plus 250 mg (90 mg-160 mg) capsule 1 cap PO QAM Qty: 30 0RF Referrals Referrals: Mac Duncan MD [Primary Care Provider] -
[2025-02-26] MEDS: VANCOMYCIN HCL 1,500 MG in SODIUM CHLORIDE 0.9% 500 ML IV ONE (07:29)
[2025-02-26] MEDS: CEFEPIME 2000MG 2,000 MG/20 ML SYR IV STA (07:29)
--- NOTE | 2025-02-26 07:35 | XRay Report ---
EXAM: XR chest 1V portable CLINICAL HISTORY: weakness TECHNIQUE: An X-ray image of the chest is obtained in AP projection. 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 Left midlung zone atelectatic changes. Right lower zone paracardiac opacities and interstitial coarsening. No evidence of right pleural effusion or pleural thickening. Heart and Mediastinum: Mild cardiomegaly with curvilinear calcifications of the thoracic aorta Prosthetic shadow projected on left cardiac border No mediastinal widening or masses. No hilar or mediastinal lymphadenopathy. 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 Diffuse atherosclerotic calcifications of the axillary arteries IMPRESSION: 1. Still noted right lower zone paracardiac opacities and interstitial coarsening, Could be inflammatory or interstitial and clinical correlation is recommended. 2. Obliterated left costophrenic angle likely by mild pleural effusion/thickening. Unchanged. 3. Left midlung zone atelectatic changes. 4. The rest of the study findings are stable. Electronically signed by Alan Pineda 02-26-2025 07:35 AM
[2025-02-26 07:41] LABS: Hematocrit (blood only) 42.5 % (37.0-47.0); Hemoglobin 13.8 g/dL (12.0-16.0); Immature Granulocytes # (auto) 0.16 K/uL (0.01-0.20); Immature Granulocytes % (auto) 1.1 %; Mean Corpuscular Hemoglobin 31.6 pg (25.0-34.0); Mean Corpuscular Volume 97.3 fL (80.0-100.0); Platelet Count 223 K/uL (130-400); RDW Standard Deviation 54.6 fL (36.4-46.3); Red Blood Count 4.37 M/uL (4.20-5.40); White Blood Count 14.54 K/ul (4.8-10.8)
--- NOTE | 2025-02-26 07:45 | XRay Report ---
EXAM: XR tibia fibula RT 2V CLINICAL HISTORY: swelling, wound red TECHNIQUE: X-ray right tibia and fibula, 2 views: AP (Anteroposterior) and lateral projections. COMPARISON: None. FINDINGS: Bone and joints: Total knee replacement with intact prosthesis, no signs of active osseous infection. Mild bony osteopenia. The visualized tibia and fibula are otherwise intact. No evidence of fracture or dislocation. No focal bone lesions are identified. Preserved ankle articulation. Soft Tissue: Soft tissues appear normal with no significant swelling. Advanced atherosclerotic calcifications of the leg arteries. Mild apparent cutaneous irregularities of the posterior aspect of the distal leg could be related to technical factors. IMPRESSION: 1. No acute fracture or dislocation. No focal bone lesion 2. Advanced atherosclerotic calcifications of the leg arteries. 3. Total knee replacement with intact prosthesis, no signs of active osseous infection. 4. Mild bony osteopenia. Disclaimer: A subtle bone abnormality or fracture may not be readily apparent on X-rays, thus clinical correlation and further imaging including follow-up CT, MRI, or follow-up X-rays are advised as needed. Electronically signed by Alan Pineda 02-26-2025 07:44 AM
[2025-02-26 07:46] LABS: Chlamydia pneumoniae PCR Not Detected (NotDetected); Coronavirus 229E PCR Not Detected (NotDetected); Coronavirus CoV-2 (COVID19)PCR Not Detected (NotDetected); Coronavirus HKU1 PCR Not Detected (NotDetected); Coronavirus NL63 PCR Not Detected (NotDetected); Coronavirus OC43PCR Not Detected (NotDetected); Human Metapneumovirus PCR Not Detected (NotDetected); Parainfluenza Virus 1 PCR Not Detected (NotDetected); Parainfluenza Virus 2 PCR Not Detected (NotDetected); Parainfluenza Virus 3 PCR Not Detected (NotDetected); Parainfluenza Virus 4 PCR Not Detected (NotDetected); Respiratory Syncytial VirusPCR Not Detected (NotDetected); Rhinovirus/Enterovirus PCR Not Detected (NotDetected)
[2025-02-26 07:58] LABS: Alanine Aminotransferase 7.0 U/L (7-52); Albumin Globulin Ratio 1.2 (0.9-2); Albumin Level 3.9 gm/dl (3.4-5.0); Alkaline Phosphatase 56.0 U/L (34-104); Anion Gap 9.0 (3-11); Bilirubin,Total 0.9 mg/dl (0.2-1.0); Blood Urea Nitrogen 31.0 mg/dl (6-23); Calcium 9.2 mg/dl (8.6-10.3); Carbon Dioxide 25.0 mmol/L (21-32); Chloride 103.0 mmol/L (98-107); Creatinine Clr Calc Pharmacy 40.8 ml/min; Globulin 3.2 gm/dl (2.5-4.0); Glucose 164.0 mg/dl (70-99(Fasting)); Magnesium 2.2 mg/dl (1.7-2.4); Potassium 4.6 mmol/L (3.5-5.1); Sodium 137.0 mmol/L (136-145); Total Protein 7.1 gm/dl (6.0-8.3)
[2025-02-26 08:08] LABS: INR 1.0 (0.9-1.1); Prothrombin Time 10.5 Seconds (9.0-12.0)
[2025-02-26 08:13] LABS: Thyroid Stimulating Hormone 1.993 uIu/ml (0.300-4.500)
[2025-02-26] MEDS: FUROSEMIDE INJ 20 MG/2 ML VIAL IV ONE (08:14)
--- NOTE | 2025-02-26 08:30 | History & Physical Report ---
Date of Service February 26, 2025 Assessment & Plan (1) Cellulitis of right leg: (2) Elevated brain natriuretic peptide (BNP) level: (3) Paroxysmal atrial tachycardia: (4) ASCVD (arteriosclerotic cardiovascular disease): (5) Neuropathy: Plan Patient is a 89 year old F with a past medical history of bilateral severe carotid artery stenosis, AAA, HTN, dyslipidemia, diastolic CHF, CKD III, GERD, DDD, chronic back pain with opioid dependence, RA on Xeljanz, history of syncop e, history of unsustained vtach s/p implanted loop recorder, history of shingles, and ambulatory dysfunction presenting with right lower leg pain and weakness. Symptoms began 2 days ago with leg pain and worsened yesterday afternoon with developing weakness and worsening right lower leg pain when ambulating to the bathroom, also with possible near syncopal event witnessed by staff at residential facility. Patient feels she felt weaker in the moment and did not fall. No fever, trauma, chest pain, shortness of breath. This morning became drowsy, fatigue and persistent weakness. Has had a chronic right leg wound for several months, approx 6 months per report. Patient is currently at [facility] for rehab. #Cellulitis RLE, sepsis with possible MRSA * Admit to [facility] for additional treatment * RLE wound, purulent, painful, now with ambulatory dysfunction; meeting sepsis criteria (tachycardia, leukocytosis); Procal 0.52, ESR 58 * Cefepime and Daptomycin for MRSA/Strep coverage; history of Pseudomonas and ESBL in urine, no history of skin infection; wound culture pending * Doppler negative for DVT-> will give heparin for DVT prophylaxis * Hx HF and on diuretics, Clinically dry on exam-> will start gentle IV fluids for sepsis management, will give NSS at 80 ml/hr max 1L-> monitor for congestion/cough * Will obtain CT tib/fib w/ contrast for r/o abscess-> pending; Ortho consult if abscess is present * Wound care consult * PT consult when able * Discharge planning: Currently at [facility]; anticipate d/c to rehab #Heart Failure #Elevated trop * BNP elev to 335 in ED, Trop elev to 35, no CP * Lasix given in ED x 1; clinically dry, hold home lasix in setting of sepsis * history os hypotension, imdur stopped in December 2024 with Wilman oconnor for hypotension * Continue home BB #Paroxysmal Afib * Tachy in ED 106-110; EKG showing AFib RVR with rate 103, no ST elevation, QTc 432. * Hx loop recorder, hx Vtach-> Mag 2.2 * On metoprolol at home-> continue * Tele monitoring * Follow lytes and replace as needed #ASCVD * On rosuvastatin-> hold while on Dapto #Neuropathy * Hx right leg pain, mostly intermittent and managed with gabapentin; has history of multiple ortho surgeries and OA * Continue home gabapentin * PT consult when able DVT Ppx: Heparin Code status: DNR/DNI PCP: Dr. Duncan Dispo: Admit Patient seen in collaboration with Dr. Roth. Please see addendum.I spent a total of 60 minutes coordinating, documenting and providing care for this patient excluding time spent in the performance of separately billed services or time spent by another provider/QHP. History of Present Illness Primary Care Provider: Mac Duncan MD Patient is a 89 year old F with a past medical history of bilateral severe carotid artery stenosis, AAA, HTN, dyslipidemia, diastolic CHF, CKD III, GERD, DDD, chronic back pain with opioid dependence, RA on Xeljanz, history of syncope, history of unsustained vtach s/p implanted loop recorder, history of shingles, and ambulatory dysfunction presenting with right lower leg pain and weakness. Symptoms began 2 days ago with leg pain and worsened yesterday afternoon with developing weakness and worsening right lower leg pain when ambulating to the bathroom, also with possible near syncopal event witnessed by staff at residential facility. Patient feels she felt weaker in the moment and did not fall. No fever, trauma, chest pain, shortness of breath. This morning became drowsy, fatigue and persistent weakness. Has had a chronic right leg wound for several months, approx 6 months per report. Patient is currently at [facility] for rehab. Denies fever, chills, weight loss, headache, cognitive changes, vision/hearing changes, chest pain, SOB, difficulty breathing, urinary concerns, N/V/D, joint swelling/pain, bleeding, bruising. Discussed with ED provider labs (ESR/CRP with leukocytosis) cellulitis management with Khan and cefepime, rationale for admission. In the emergency department, patient was hemodynamically stable, afebrile and tachycardic to 110. Leukocytosis noted with white count 14K, normal lactate and procal elevation. Not hypoxic or febrile. Tachycardic in the ED with HR's 106. EKG showing A Fib RVR with rate 103, no ST elevation, QTc 432. Mag level 2.2. TSH normal. Biofire negative. Vanco and Cefepime given in the ED for suspected cellulitis. Blood and wound cultures collected. Doppler US of RLE with slightly obscured calf vessels but no evidence of deep venous thrombus within the right lower extremity. Patient is not anticoagulated. Most likely left leg pain relating to cellulitis, possible venous stasis, but will rule out DVT. Also has a history of neuropathy to RLE, has had multiple back surgeries, chronic leg pain and takes gabapentin. Possible HF component to present illness with an elevated BNP 335 with slight Troponin elevation to 34. No chest pain or significant peripheral swelling. Lungs clear on exam. Chest Xray showing right lower zone paracardiac opacities and interstitial coarsening, inflammatory vs interstitial; mild pleural effusion/thickening; Left midlung zone atelectatic changes. Lasix given in the ED. Renal functioning stable with Creatinine 0.9. Clinically dry on exam. Gentle fluids started. Tib/Fib Xray showing No acute fracture or dislocation. No focal bone lesion; Advanced atherosclerotic calcifications of the leg arteries. CT leg ordered and pending for rule out abscess. History obtained primarily from the patient and via hospitalization record. The patient's family was at the bedside and assisted with history of present illness, medications, and events leading up to this admission. External chart review obtained from [employer]. Allergies Allergy/AdvReac Type Severity Reaction Status Date / Time morphine Allergy Severe Anaphylaxis Verified 07/31/24 15:32 adhesive Allergy Intermediate Tape- rash Verified 07/31/24 15:32 hydroxychloroquine Allergy Intermediate Rash Verified 07/31/24 15:32 Sulfa (Sulfonamide Allergy Intermediate HIVES Verified 07/31/24 15:32 Antibiotics) pregabalin [From Lyrica] AdvReac Severe Edema Verified 07/31/24 15:32 benzonatate AdvReac Intermediate GI upset Verified 07/31/24 15:32 lisinopril AdvReac Intermediate GI Verified 07/31/24 15:32 symptoms, cough shrimp AdvReac Intermediate GI symptoms Verified 07/31/24 15:32 codeine AdvReac Mild Nausea Verified 07/31/24 15:32 Home Medications Medication Instructions Recorded Confirmed Type ascorbic acid (vitamin C) 500 mg 500 mg PO DAILY #30 tabs 10/31/24 02/26/25 Rx tablet (Vitamin C) aspirin 81 mg tablet,delayed 81 mg PO QAM #60 tabs 10/31/24 02/26/25 Rx release buprenorphine 15 mcg/hour weekly 1 patch topical WK #4 ea 10/31/24 02/26/25 Rx transdermal patch cholecalciferol (vitamin D3) 25 25 mcg PO QAM #30 caps 10/31/24 02/26/25 Rx mcg (1,000 unit) capsule (Vitamin D3) colesevelam 625 mg tablet 625 mg PO BID #60 tabs 10/31/24 02/26/25 Rx cyanocobalamin (vitamin B-12) 1,000 mcg PO QAM #30 tabs 10/31/24 02/26/25 Rx 1,000 mcg tablet (Vitamin B-12) docusate sodium 100 mg capsule 100 mg PO DAILY Constipation #30 10/31/24 02/26/25 Rx (Colace) caps famotidine 20 mg tablet 20 mg PO QAM #30 tabs 10/31/24 02/26/25 Rx lifitegrast 5 % eye drops in a 1 drp OPB BID #20 ea 10/31/24 02/26/25 Rx dropperette (Xiidra) metoprolol succinate 25 mg 12.5 mg (1/2 x 25 mg) PO BID #30 10/31/24 02/26/25 Rx tablet,extended release 24 hr tabs polyethylene glycol 400 1 % eye 1 drp ophthalmic (eye) TID PRN Dry 10/31/24 02/26/25 Rx drops (Visine Dry Eye Relief) Eyes #15 mL rosuvastatin 40 mg tablet 40 mg PO QAM #30 tabs 10/31/24 02/26/25 Rx simethicone 80 mg chewable tablet 80 mg PO Q6H PRN Gastrointestinal 10/31/24 02/26/25 Rx Spasms Or Cramping #14 tabs Milk of Magnesia 30 ml PO DAILY PRN Constipation 02/26/25 02/26/25 History Saccharomyces boulardii 250 mg 250 mg PO DAILY 02/26/25 02/26/25 History capsule (Florastor) acetaminophen 500 mg tablet 1,000 mg PO TID 02/26/25 02/26/25 History bisacodyl 10 mg rectal suppository 10 mg NE DAILY PRN Constipation 02/26/25 02/26/25 History (Dulcolax (bisacodyl)) calcium 500 mg (as 1 tab PO .AFTERNOON 02/26/25 02/26/25 History carbonate)-vitamin D3 5 mcg (200 unit) tablet (Oyster Shell Calcium-Vitamin D3) diclofenac sodium 1 % topical gel 4 g topical TID PRN Pain 02/26/25 02/26/25 History doxycycline hyclate 100 mg capsule 100 mg PO BID for 7 days 02/26/25 02/26/25 History furosemide 20 mg tablet 20 mg PO DAILY 02/26/25 02/26/25 History gabapentin 300 mg capsule 0 mg PO BID 02/26/25 02/26/25 History isosorbide mononitrate 30 mg 30 mg PO DAILY 02/26/25 02/26/25 History tablet,extended release 24 hr lidocaine 4 % topical patch 0 patch topical .EVERY 24 HOURS 02/26/25 02/26/25 History (Salonpas (lidocaine)) PRN painful joint or extremity melatonin 3 mg tablet 6 mg PO HS PRN Insomnia 02/26/25 02/26/25 History polyethylene glycol 3350 17 gram 17 g PO DAILY constipation 02/26/25 02/26/25 History oral powder packet (Miralax) pregabalin 50 mg capsule 50 mg PO BID 02/26/25 02/26/25 History sodium phosphates 19 gram-7 118 ml NE DAILY PRN Constipation 02/26/25 02/26/25 History gram/118 mL enema (Enema) tramadol 50 mg tablet 25 mg PO HS 02/26/25 02/26/25 History tramadol 50 mg tablet 25 mg PO Q8H PRN Pain 02/26/25 02/26/25 History upadacitinib 15 mg tablet,extended 15 mg PO DAILY 02/26/25 02/26/25 History release 24 hr (Rinvoq) upadacitinib 15 mg tablet,extended 15 mg PO QAM 02/26/25 02/26/25 History release 24 hr (Rinvoq) vit C 250 mg-vit E 90 mg-zinc 40 1 tab PO QAM 02/26/25 02/26/25 History mg-copper 1 [id number] capsule (PreserVision AREDS-2) Past Med/Surg History Problem List (Updated 02/26/25 @ 08:05 by Ayaz Grewal M.D.) Weakness (Acute) Cellulitis of right leg (Acute) Greater trochanteric bursitis of right hip Osteoarthritis of left glenohumeral joint Acute on chronic heart failure with preserved ejection fraction Contusion of right knee, subsequent encounter Acute pain of right knee (Acute) Elevated brain natriuretic peptide (BNP) level (Acute) Acute hypoxemic respiratory failure (Acute) Ambulatory dysfunction (Acute) Acute CHF (Acute) Chronic pain Acute urinary retention Ventricular premature complexes Shingles rash Paroxysmal atrial tachycardia Premature atrial contractions Sinus tachycardia Immunosuppressed status ASCVD (arteriosclerotic cardiovascular disease) Pneumonia (Acute) Weakness (Acute) Ambulatory dysfunction (Acute) DDD (degenerative disc disease), lumbar (Acute) Acute on chronic diastolic congestive heart failure Degenerative disc disease, lumbar Right upper lobe pneumonia Urinary tract infection after period of immobility Acute sepsis Abnormal ankle brachial index (DOROTHEA) (Acute) ISTAP type 3 skin tear of right hand (Acute) 12/16/23 Traumatic open wound of left lower leg with delayed healing (Acute) 12/16/23 Low back pain radiating to right lower extremity Lumbar radiculopathy, right Degenerative lumbar spinal stenosis AAA (abdominal aortic aneurysm) without rupture Cellulitis of lower extremity 11/25/23 Encephalopathy 11/22/23 Back pain Paroxysmal supraventricular tachycardia Chronic diastolic (congestive) heart failure Acute kidney injury superimposed on CKD 11/22/23 Ambulatory dysfunction BERNADINE (acute kidney injury) (Acute) 11/22/23 Bilateral leg weakness (Acute) 11/22/23 Hypertension Hx of rheumatoid arthritis CAD (coronary artery disease) f/u zachary bergeron Hematoma of right lower leg (Acute) 07/18/23 Greater trochanteric pain syndrome Opioid dependence Greater trochanteric bursitis of left hip Rotator cuff arthropathy of left shoulder Mechanical low back pain Medication monitoring encounter Acquired foot deformity Laceration of right knee (Acute) 08/16/21 Pressure ulcer of toe of left foot, stage 4 07/12/21 T12 compression fracture Fever (Acute) 06/23/21 Weakness (Acute) 06/23/21 Lower extremity edema (Chronic) 06/21/21 Acquired hammer toe (Chronic) Neuropathy (Chronic) Stage IV pressure ulcer (Acute) 05/29/21 Pes anserine bursitis Status post right knee replacement Traumatic open wound of right lower leg (Acute) 02/21/21 Immunosuppression due to chronic steroid use Traumatic open wound of right lower leg with delayed healing (Acute) 12/15/20 Laceration of elbow, left (Acute) 11/23/20 Dehydration (Acute) 10/27/20 Pneumonia due to 2018 novel coronavirus (Acute) 10/27/20 Acute respiratory failure with hypoxia 10/27/20 Multifocal pneumonia 10/27/20 Rheumatoid arthritis (Acute) SARS-CoV-2 positive (Acute) 10/17/20 Weakness (Acute) 10/17/20 Fall 10/17/20 Bilateral knee pain History of total right knee replacement Postural imbalance 08/22/20 Entrapment neuropathy of peripheral nerve of lower extremity Venous insufficiency of both lower extremities (Chronic) Traumatic open wound of right lower leg (Acute) 04/12/20 Pes anserinus tendonitis of right lower extremity Left knee DJD Traumatic wound (Acute) 11/11/19 Left knee pain (Chronic) Postoperative seroma (Chronic) L2-4 Lumbar postlaminectomy syndrome (Chronic) Acquired right foot 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 Lumbar compression fracture (Chronic) L1 acute on chronic MRI 03/[address] 10/17/2020 Pes anserine bursitis Right knee pain Degenerative joint disease of knee Myofascial pain (Chronic) Sacroiliitis (Chronic) 11/20/18 Cervical radiculopathy (Chronic) Greater trochanteric bursitis (Chronic) Lumbago (Chronic) Lumbar radiculitis (Chronic) Peripheral neuropathy (Chronic) Facet syndrome, lumbar (Chronic) CAD (coronary artery disease) (Chronic) Osteoarthritis (Chronic) Myocardial infarct, 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) 11/14/17 Hypertension (Chronic) Dyslipidemia (Chronic) Osteoporosis (Chronic) Rheumatoid arthritis of shoulder (Chronic) Lumbar spinal stenosis (Chronic) Medical History Sepsis due to pneumonia Hypoxia Elevated troponin I level 11/22/23 Acute respiratory failure with hypoxemia 10/27/20 CAD (coronary artery disease) s/p 2 stents Open wound right hand, sees wound clinic Sacral neurostimulator in situ instructed to bring remote dos Hx of supraventricular tachycardia follows with [facility] cardiology AAA (abdominal aortic aneurysm) Abdomen/Pelvis CT 11/2023: Stable Right infrarenal aortic aneurysm measures 44 mm GERD (gastroesophageal reflux disease) Hx of migraines Hx of myocardial infarction (~2008) Lumbar spinal stenosis Postlaminectomy syndrome, lumbar region no current issues Dyslipidemia History of COVID-19 2020- [facility], [place] admission with acute respiratory failure > no residual effects Neuropathy in both legs, rt>lt Right knee pain Status post TKA taking shots due to bursitis (no shots for at least 3 months) Surgical History Hx of toe surgery Bilateral Feet Second and Third Digit Flexor Tenotomy(Bilateral) Hx of colonoscopy Hx of heart artery stent ~2008, [facility], [place], x1 stent, 2/2 NE ~2011, [facility], x1 stent, 2/2 heart symptoms; f/u zachary bergeron Hx of cardiac cath ~2008, [facility], [place], x1 stent, 2/2 NE ~2011, [facility], x1 stent, 2/2 heart symptoms; f/u zachary bergeron History of total shoulder replacement Right History of loop recorder no longer working > follows with Dr Bergeron S/P total knee arthroplasty Right History of lumbosacral spine surgery 50+ years for first one, 2nd one 2014, both lower back; flexible rainer and does lesi History of PTCA Remote hx "years ago" History of hysterectomy History of breast biopsy History of tonsillectomy History of adenoidectomy History of angioplasty Family History Father Myocardial infarction Brother Myocardial infarction Other Family history non-contributory Denies family history of Ovarian cancer Prostate cancer Breast cancer Colorectal cancer Social History Smoking Status: Never smoker Tobacco Type: Cigarettes Second Hand Exposure: No; Do You Dip or Chew Tobacco: No; Hx Alcohol Use: Yes Alcohol type: wine Alcohol type Comment: In the evenings. Alcohol Intake Frequency: 4 or More x per/Week Hx Substance Use: No Preferred Language: Northern Irish Communication Ability: Effective Visual Impairment: Limited Hearing Ability: Normal Circular Knitter Helper Required: No Beliefs That Will Affect Care: None marital status: Current Living Situation: Personal Care Facility Current Living Situation Comment: [facility] current occupational status: retired How many Children do You have: 7 Feels Safe at Home: Yes Diet: regular caffeine: No during the past year weight has: remained stable Assistive Devices: Glasses, Walker and Wheelchair Review of Systems Review of Systems: All systems reviewed & are unremarkable except as noted in HPI & below Physical Exam Physical Exam: VITALS: Reviewed. WEIGHT/BMI reviewed. GEN: Healthy appearing, well-developed, NAD. PSYCH: Good Judgment. AOx3. Normal memory, mood, and affect. HEENT -Head: NC/AT; -Eyes: PERRL, EOMI. No discharge or redn ess; -Ears: External ears are normal. Normal TMs. -Nose: Normal nares. -Mouth and throat: Dry, cracked lips. No rmal gums, mucosa, palate,. Good dentition. NECK: Supple, with no masses. CV: Regular, irregular, tachy, no murmurs, non-pitting edema RLE LUNGS: CTAB, no w/r/c. sats ok ABD: Soft, NT/ND, NBS, no masses or organomegaly. : N/A SKIN: RLE with erythema, flaky skin, large bulla above malleolus, swelling, purulent to lateral calf MSK: 1/5 strength to RLE, otherwise 4/5 x 3 NEURO: CN II-XII grossly intact, Speech clear. No focal deficits. Results & Data Results & Data Vital Signs (Past 12 Hours) Vital Signs Temp Pulse Pulse Resp BP BP Pulse Ox 02/26/25 08:00 121/62 02/26/25 08:00 106 H 21 95 02/26/25 07:31 111/72 02/26/25 07:30 103 H 17 94 02/26/25 07:00 140/74 02/26/25 07:00 111 H 27 H 69 L 02/26/25 06:45 120/57 L 02/26/25 06:45 93 H 23 94 02/26/25 06:43 107 H 18 134/61 93 02/26/25 05:39 101 H 02/26/25 05:38 36.8 C 102 H 18 135/72 98 O2 Del Method 02/26/25 08:00 02/26/25 08:00 Room Air 02/26/25 07:31 02/26/25 07:30 02/26/25 07:00 02/26/25 07:00 02/26/25 06:45 02/26/25 06:45 02/26/25 06:43 02/26/25 05:39 02/26/25 05:38 Room Air Laboratory Results Short CBC 02/26/25 Range/Units 07:20 WBC 14.54 H (4.8-10.8) K/ul Hgb 13.8 (12.0-16.0) g/dL Hct 42.5 (37.0-47.0) % Plt Count 223 (130-400) K/uL BMP 02/26/25 07:20 Sodium 137 Potassium 4.6 Chloride 103 Carbon Dioxide 25 BUN 31 H Creatinine 0.90 Glucose 164 H Calcium 9.2 Liver Function 02/26/25 Range/Units 07:20 Total Bilirubin 0.9 (0.2-1.0) mg/dl AST 13 (13-39) U/L ALT 7 (7-52) U/L Alkaline Phosphatase 56 (34-104) U/L Albumin 3.9 (3.4-5.0) gm/dl Diagnostic Findings Venous Doppler Study 02/26/25 06:13 RIGHT LOWER EXTREMITY VENOUS DOPPLER CLINICAL HISTORY: Right lower extremity pain and swelling. COMPARISON STUDY: Bilateral lower extremity venous Doppler ultrasound November 23, 2023. TECHNIQUE: Sonography of the deep venous system of the right lower extremity was performed. Compression and augmentation were evaluated. FINDINGS: The right common femoral, superficial femoral and popliteal veins were compressible. Augmentation was normal. Flow was shown within the deep calf vessels although calf vessels were partially obscured. IMPRESSION: Slightly obscured calf vessels but no evidence of deep venous thrombus within the right lower extremity. ACT 112: Negative or not required by law. Electronically signed by: Freddy Rivera M.D. 02/26/2025 9:19 AM Chest X-Ray 02/26/25 06:14 EXAM: XR chest 1V portable CLINICAL HISTORY: weakness TECHNIQUE: An X-ray image of the chest is obtained in AP projection. 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 Left midlung zone atelectatic changes. Right lower zone paracardiac opacities and interstitial coarsening. No evidence of right pleural effusion or pleural thickening. Heart and Mediastinum: Mild cardiomegaly with curvilinear calcifications of the thoracic aorta Prosthetic shadow projected on left cardiac border No mediastinal widening or masses. No hilar or mediastinal lymphadenopathy. 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 Diffuse atherosclerotic calcifications of the axillary arteries IMPRESSION: 1. Still noted right lower zone paracardiac opacities and interstitial coarsening, Could be inflammatory or interstitial and clinical correlation is recommended. 2. Obliterated left costophrenic angle likely by mild pleural effusion/thickening. Unchanged. 3. Left midlung zone atelectatic changes. 4. The rest of the study findings are stable. Electronically signed by Alan Pineda 02-26-2025 07:35 AM Tibia/Fibula X-Ray 02/26/25 06:14 EXAM: XR tibia fibula RT 2V CLINICAL HISTORY: swelling, wound red TECHNIQUE: X-ray right tibia and fibula, 2 views: AP (Anteroposterior) and lateral projections. COMPARISON: None. FINDINGS: Bone and joints: Total knee replacement with intact prosthesis, no signs of active osseous infection. Mild bony osteopenia. The visualized tibia and fibula are otherwise intact. No evidence of fracture or dislocation. No focal bone lesions are identified. Preserved ankle articulation. Soft Tissue: Soft tissues appear normal with no significant swelling. Advanced atherosclerotic calcifications of the leg arteries. Mild apparent cutaneous irregularities of the posterior aspect of the distal leg could be related to technical factors. IMPRESSION: 1. No acute fracture or dislocation. No focal bone lesion 2. Advanced atherosclerotic calcifications of the leg arteries. 3. Total knee replacement with intact prosthesis, no signs of active osseous infection. 4. Mild bony osteopenia. Disclaimer: A subtle bone abnormality or fracture may not be readily apparent on X-rays, thus clinical correlation and further imaging including follow-up CT, MRI, or follow-up X-rays are advised as needed. Electronically signed by Alan Pineda 02-26-2025 07:44 AM Supervising Physician Co-Signing Physician Notes Patient seen and examined at bedside. present and assisted with history. Drainage and erythema has worsened over past few days in right lower extremity. Has been fatigued for past day as well. RLE wound is chronic per and patient. On exam, RLE with bullous lesion on right lateral lower leg near ankle, significant soft tissue edema in RLE, mild purulent drainage, on right lateral middle calf, erythema significantly more than left calf. WBC of 14.5 plus tachycardia consistent with SIRS criteria with a source. Elevated ESR and CRP consistent with soft tissue infection, BNP within age adjusted limits. Procal of 0.52 consistent with possible systemic infection. Presentation consistent with likely complex purulent cellulitis of RLE in setting of sepsis. Start fluid resuscitation. Start daptomycin and cefepime given purulence and hx of psuedomonas colonization. Check CT RLE to r/o deep tissue abscess. Pending imaging, may consider ortho consults/ID consults if complexity noted. PT/OT evaluation. I have seen and discussed the case with the collaborating advanced practitioner. I agree with the above H&P. I have reviewed and confirmed the patients medical history, the findings on physical examination, and the patients diagnosis and treatment plan with Mary Ann URBAN and agree with the information documented. I spent a total of 40 minutes coordinating, documenting, and providing care for this patient excluding time spent in the performance of separately billed services. All of the aforementioned completed outside of collaborating with the assigned advanced practitioner for a full treatment plan. I have reviewed the advanced practitioner's documentation, and I agree with, and take responsibility for the plan of care
--- NOTE | 2025-02-26 09:20 | Ultrasound Report ---
RIGHT LOWER EXTREMITY VENOUS DOPPLER CLINICAL HISTORY: Right lower extremity pain and swelling. COMPARISON STUDY: Bilateral lower extremity venous Doppler ultrasound November 23, 2023. TECHNIQUE: Sonography of the deep venous system of the right lower extremity was performed. Compress ion and augmentation were evaluated. FINDINGS: The right common femoral, superficial femoral and popliteal veins were compressible. Augme ntation was normal. Flow was shown within the deep calf vessels although calf vessels were partially obscured. IMPRESSION: Slightly obscured calf vessels but no evidence of deep venous thrombus within the right l ower extremity. ACT 112: Negative or not required by law. Electronically signed by: Freddy Rivera M.D. 02/26/2025 9:19 AM
[2025-02-26] MEDS: TDSY TD SCH (11:51)
[2025-02-26] MEDS: CHECK BUPRENORPHINE PATCH SCH (11:51)
[2025-02-26] MEDS: BUPRENORPHINE TD SCH (11:51)
[2025-02-26] MEDS: ASPIRIN 81 MG ECTAB PO SCH (11:52)
[2025-02-26] MEDS: CYANOCOBALAMIN (B-12) 500 MCG TABLET PO SCH (11:52)
[2025-02-26] MEDS: METOPROLOL SUCC 25MG EXT REL TAB PO SCH (11:52)
[2025-02-26] MEDS: ROSUVASTATIN CALCIUM 20 MG TAB PO SCH (11:53)
[2025-02-26] MEDS: GABAPENTIN 300 MG CAP PO SCH (11:53)
[2025-02-26] MEDS: ACETAMINOPHEN 325 MG TAB PO PRN ×2 (12:01→20:03)
[2025-02-26] MEDS: SODIUM CHLORIDE 0.9% 1,000 ML IV SCH (12:02)
[2025-02-26] MEDS: SODIUM CHLORIDE 0.9% 500 ML IV SCH (12:06)
[2025-02-26] MEDS: OPTIRAY 320 100ml IV ONE (13:55)
[2025-02-26] MEDS ORDERED: CEFEPIME 2000MG 2,000 MG/20 ML SYR IV SCH (14:15)
[2025-02-26] MEDS ORDERED: NITROGLYCERIN SL 0.4 MG/TAB TAB SL PRN (14:15)
[2025-02-26] MEDS ORDERED: MAGNESIUM HYDROXIDE SUSP 30 ML UDC PO PRN (14:15)
[2025-02-26] MEDS ORDERED: ALUMINUM/MAGNESIUM SUSP 30 ML UDC PO PRN (14:15)
[2025-02-26] MEDS ORDERED: ONDANSETRON INJ 2 MG/ML 2 ML VIAL IV PRN (14:15)
--- NOTE | 2025-02-26 16:12 | CT Scan Report ---
CT SCAN OF THE RIGHT TIBIA AND FIBULA WITH IV CONTRAST CLINICAL HISTORY: Right leg infection. Clinical concern for abscess. COMPARISON STUDY: Radiographs of the right tibia and fibula dated 02/26/2025. CT of the right knee da sarina 10/28/2024. The examination is degraded by streak artifact from a right knee arthroplasty. TECHNIQUE: Following the IV administration of 94 cc of Optiray 320, CT scan of the right tibia and fi bula was performed from the knee to the ankle. Images are reviewed in the axial, sagittal, and montilla l planes. IV contrast was administered without complication. A dose lowering technique was utilized a dhering to the principles of ALARA. FINDINGS: The skeletal structures are osteopenic. A right knee arthroplasty is in place. There is no evidence of right tibial or fibular fracture. There is a right knee joint effusion. The ankle mortise is maintained. Arthritic change is noted in the partially imaged foot. There is advanced atheroscler otic calcification of the regional arteries. The ankle arteries appear patent. There is diffuse gener alized atrophy of the regional musculature. The Achilles tendon is thickened and tendonotic with calc ification. The tendon is intact as imaged. Subcutaneous soft tissue edema and fluid is seen throughou t the right lower extremity, greatest distally. No soft tissue gas is seen. There is an approximately 3 x 1 cm pocket of fluid bulging from the dermal surface along the lateral aspect of the distal fibu la seen on axial image #331. This may represent a large vesicle. There is an approximately 6.5 x 5 x 1 cm pocket of complex fluid in the soft tissues of the lateral ankle extending from the distal fibul a to the lateral malleolus. No gas is seen within this collection, and this may communicate with the vesicle discussed above. IMPRESSION: 1. No acute bony abnormality is seen involving the right tibia or fibula. 2. There is diffuse subcutaneous edema and fluid seen throughout the right lower extremity. Correlate clinically for evidence of cellulitis. 3. There is an approximately 6.5 x 5 x 1 cm pocket of complex/slightly hyperdense fluid in the latera l soft tissues overlying the distal fibula/lateral malleolus. This is pathologically indeterminant an d could represent a liquefied hematoma. The sterility of this fluid cannot be assessed by imaging and clinical correlation will be essential. 4. There is an approximately 3 x 1 cm pocket of fluid bulging from the dermal surface along the later al aspect of the distal fibula. This may represent a large vesicle, and this overlies/may communicate with the above-mentioned complex fluid collection. ACT 112: Negative or not required by law. Electronically signed by: Preston Hammonds M.D. 02/26/2025 4:11 PM
[2025-02-26] MEDS: HEPARIN SOD 5,000 UNIT/0.5 ML VIAL SQ SCH (17:31)
--- NOTE | 2025-02-26 19:11 | Electrocardiogram Report ---
Test Reason : Blood Pressure : */* mmHG Vent. Rate : 103 BPM Atrial Rate : * BPM P-R Int : * ms QRS Dur : 74 ms QT Int : 330 ms P-R-T Axes : * 37 57 degrees QTcB Int : 432 ms Multifocal atrial tachycardia Abnormal ECG When compared with ECG of 28-Oct-2024 14:17, Multifocal atrial tachycardia has replaced Sinus rhythm Criteria for Inferior infarct are no longer Present Nonspecific T wave abnormality no longer evident in Inferior leads Nonspecific T wave abnormality, improved in Anterolateral leads Confirmed by Miguel Salinas ([id number]) on 02/26/2025 7:11:25 PM Referred By: REFERRED SELF Confirmed By: Miguel Salinas
[2025-02-26] MEDS: CEFEPIME 2000MG 2,000 MG/20 ML SYR IV SCH (19:59)
[2025-02-26] MEDS: DAPTOmycin 500 MG in SYRINGE 0 ML IV SCH (22:55)
[2025-02-27 08:22] LABS: Hematocrit (blood only) 35.0 % (37.0-47.0); Hemoglobin 11.4 g/dL (12.0-16.0); Mean Corpuscular Hemoglobin 31.9 pg (25.0-34.0); Mean Corpuscular Volume 98.0 fL (80.0-100.0); Platelet Count 210 K/uL (130-400); RDW Standard Deviation 54.6 fL (36.4-46.3); Red Blood Count 3.57 M/uL (4.20-5.40); White Blood Count 12.06 K/ul (4.8-10.8)
[2025-02-27] MEDS: FAMOTIDINE 20 MG TAB PO SCH (08:36)
[2025-02-27] MEDS: DOCUSATE SODIUM 100 MG CAP PO SCH (08:37)
[2025-02-27 08:41] LABS: Hemoglobin A1C 6.6 % (4.5-5.6)
[2025-02-27 08:42] LABS: Alanine Aminotransferase 5.0 U/L (7-52); Albumin Globulin Ratio 1.1 (0.9-2); Albumin Level 3.2 gm/dl (3.4-5.0); Alkaline Phosphatase 48.0 U/L (34-104); Anion Gap 6.0 (3-11); Bilirubin,Total 0.6 mg/dl (0.2-1.0); Blood Urea Nitrogen 30.0 mg/dl (6-23); Calcium 8.9 mg/dl (8.6-10.3); Carbon Dioxide 25.0 mmol/L (21-32); Chloride 108.0 mmol/L (98-107); Creatinine Clr Calc Pharmacy 51.4 ml/min; Globulin 2.9 gm/dl (2.5-4.0); Glucose 122.0 mg/dl (70-99(Fasting)); Magnesium 2.3 mg/dl (1.7-2.4); Potassium 4.1 mmol/L (3.5-5.1); Sodium 139.0 mmol/L (136-145); Total Protein 6.1 gm/dl (6.0-8.3)
[2025-02-27] MEDS: ACETAMINOPHEN 1,000 MG/100 ML VIAL IV STA (10:42)
--- NOTE | 2025-02-27 11:17 | Orthopedic Consultation ---
Date of Service February 27, 2025 Assessment & Plan (1) Cellulitis of right leg: (2) Abscess of leg, right: Plan Treatment options were discussed with the patient. Discussed manual expression of purulent material from the wound at bedside or performing I&D in the OR. Patient elected for manual expression at bedside. Approximately 30 cc of purulent material were expressed from the wound. Culture swab was obtained and sent to the lab for Gram stain and culture. Wound was then dressed. We will see how she does on IV antibiotics without performing an I&D in the OR. There is concerned that surgical incision would heal poorly given the chronicity of the current wound in her right lower extremity. -Frequent dry dressing changes. -Continue current antibiotics, wound culture pending. -Consult wound care -Weight bearing status: As tolerated -Pain control as needed History of Present Illness Reason for Consultation: Cellulitis of the right leg Requesting Physician: . Attending Physician: Trevor Bonilla MD Patient is a 89 year old F with a complex past medical history was admitted to the floor with right lower leg pain and weakness. Symptoms began 3 days ago with leg pain and worsened 2 days ago with developing weakness and worsening right lower leg pain when ambulating to the bathroom, also with possible near syncopal event witnessed by staff at residential facility. Patient feels she felt weaker in the moment and did not fall. No fever, trauma, chest pain, shortness of breath. Yesterday morning she became drowsy, fatigue and persistent weakness. Has had a chronic right leg wound for several months, approx 6 months per report. Patient is currently at [facility] for [facility]hab. CT imaging taken last night showed a 6.5 x 5 x 1 cm pocket of complex slightly hyperdense fluid in the lateral soft tissues overlying the distal fibula and lateral malleolus. There is also a 3 x 1 cm fluid pocket in the superficial skin that seem to communicate with the deeper pocket of infection. During dressing changes this morning, the superficial pocket ruptured and was leaking purulent fluid. Allergies Allergy/AdvReac Type Severity Reaction Status Date / Time morphine Allergy Severe Anaphylaxis Verified 07/31/24 15:32 adhesive Allergy Intermediate Tape- rash Verified 07/31/24 15:32 hydroxychloroquine Allergy Intermediate Rash Verified 07/31/24 15:32 Sulfa (Sulfonamide Allergy Intermediate HIVES Verified 05/23/25 15:32 Antibiotics) pregabalin [From Lyrica] AdvReac Severe Edema Verified 07/31/24 15:32 benzonatate AdvReac Intermediate GI upset Verified 07/31/24 15:32 lisinopril AdvReac Intermediate GI Verified 07/31/24 15:32 symptoms, cough shrimp AdvReac Intermediate GI symptoms Verified 07/31/24 15:32 codeine AdvReac Mild Nausea Verified 07/31/24 15:32 Home Medications Medication Instructions Recorded Confirmed Type ascorbic acid (vitamin C) 500 mg 500 mg PO DAILY #30 tabs 10/31/24 02/26/25 Rx tablet (Vitamin C) aspirin 81 mg tablet,delayed 81 mg PO QAM #60 tabs 10/31/24 02/26/25 Rx release buprenorphine 15 mcg/hour weekly 1 patch topical WK #4 ea 10/31/24 02/26/25 Rx transdermal patch cholecalciferol (vitamin D3) 25 25 mcg PO QAM #30 caps 10/31/24 02/26/25 Rx mcg (1,000 unit) capsule (Vitamin D3) colesevelam 625 mg tablet 625 mg PO BID #60 tabs 10/31/24 02/26/25 Rx cyanocobalamin (vitamin B-12) 1,000 mcg PO QAM #30 tabs 10/31/24 02/26/25 Rx 1,000 mcg tablet (Vitamin B-12) docusate sodium 100 mg capsule 100 mg PO DAILY Constipation #30 10/31/24 02/26/25 Rx (Colace) caps famotidine 20 mg tablet 20 mg PO QAM #30 tabs 10/31/24 02/26/25 Rx lifitegrast 5 % eye drops in a 1 drp OPB BID #20 ea 10/31/24 02/26/25 Rx dropperette (Xiidra) metoprolol succinate 25 mg 12.5 mg (1/2 x 25 mg) PO BID #30 10/31/24 02/26/25 Rx tablet,extended release 24 hr tabs polyethylene glycol 400 1 % eye 1 drp ophthalmic (eye) TID PRN Dry 10/31/24 02/26/25 Rx drops (Visine Dry Eye Relief) Eyes #15 mL rosuvastatin 40 mg tablet 40 mg PO QAM #30 tabs 10/31/24 02/26/25 Rx simethicone 80 mg chewable tablet 80 mg PO Q6H PRN Gastrointestinal 10/31/24 02/26/25 Rx Spasms Or Cramping #14 tabs Milk of Magnesia 30 ml PO DAILY PRN Constipation 02/26/25 02/26/25 History Saccharomyces boulardii 250 mg 250 mg PO DAILY 02/26/25 02/26/25 History capsule (Florastor) acetaminophen 500 mg tablet 1,000 mg PO TID 02/26/25 02/26/25 History bisacodyl 10 mg rectal suppository [address] DAILY PRN Constipation 02/26/25 02/26/25 History (Dulcolax (bisacodyl)) calcium 500 mg (as 1 tab PO .AFTERNOON 02/26/25 02/26/25 History carbonate)-vitamin D3 5 mcg (200 unit) tablet (Oyster Shell Calcium-Vitamin D3) diclofenac sodium 1 % topical gel 4 g topical TID PRN Pain 02/26/25 02/26/25 History doxycycline hyclate 100 mg capsule 100 mg PO BID for 7 days 02/26/25 02/26/25 History furosemide 20 mg tablet 20 mg PO DAILY 02/26/25 02/26/25 History gabapentin 300 mg capsule 0 mg PO BID 02/26/25 02/26/25 History isosorbide mononitrate 30 mg 30 mg PO DAILY 02/26/25 02/26/25 History tablet,extended release 24 hr lidocaine 4 % topical patch 0 patch topical .EVERY 24 HOURS 02/26/25 02/26/25 History (Salonpas (lidocaine)) PRN painful joint or extremity melatonin 3 mg tablet 6 mg PO HS PRN Insomnia 02/26/25 02/26/25 History polyethylene glycol 3350 17 gram 17 g PO DAILY constipation 02/26/25 02/26/25 History oral powder packet (Miralax) pregabalin 50 mg capsule 50 mg PO BID 02/26/25 02/26/25 History sodium phosphates 19 gram-[address] DAILY PRN Constipation 02/26/25 02/26/25 History gram/118 mL enema (Enema) tramadol 50 mg tablet 25 mg PO HS 02/26/25 02/26/25 History tramadol 50 mg tablet 25 mg PO Q8H PRN Pain 02/26/25 02/26/25 History upadacitinib 15 mg tablet,extended 15 mg PO DAILY 02/26/25 02/26/25 History release 24 hr (Rinvoq) upadacitinib 15 mg tablet,extended 15 mg PO QAM 02/26/25 02/26/25 History release 24 hr (Rinvoq) vit C 250 mg-vit E 90 mg-zinc 40 1 tab PO QAM 02/26/25 02/26/25 History mg-copper 1 [id number] capsule (PreserVision AREDS-2) Past Med/Surg History Problem List (Updated 02/27/25 @ 11:06 by GUILLERMINA LozanoC) Abscess of leg, right Weakness (Acute) Cellulitis of right leg (Acute) Greater trochanteric bursitis of right hip Osteoarthritis of left glenohumeral joint Acute on chronic heart failure with preserved ejection fraction Contusion of right knee, subsequent encounter Acute pain of right knee (Acute) Elevated brain natriuretic peptide (BNP) level (Acute) Acute hypoxemic respiratory failure (Acute) Ambulatory dysfunction (Acute) Acute CHF (Acute) Chronic pain Acute urinary retention Ventricular premature complexes Shingles rash Paroxysmal atrial tachycardia Premature atrial contractions Sinus tachycardia Immunosuppressed status ASCVD (arteriosclerotic cardiovascular disease) Pneumonia (Acute) Weakness (Acute) Ambulatory dysfunction (Acute) DDD (degenerative disc disease), lumbar (Acute) Acute on chronic diastolic congestive heart failure Degenerative disc disease, lumbar Right upper lobe pneumonia Urinary tract infection after period of immobility Acute sepsis Abnormal ankle brachial index (DOROTHEA) (Acute) ISTAP type 3 skin tear of right hand (Acute) 12/16/23 Traumatic open wound of left lower leg with delayed healing (Acute) 12/16/23 Low back pain radiating to right lower extremity Lumbar radiculopathy, right Degenerative lumbar spinal stenosis AAA (abdominal aortic aneurysm) without rupture Cellulitis of lower extremity 11/25/23 Encephalopathy 11/22/23 Back pain Paroxysmal supraventricular tachycardia Chronic diastolic (congestive) heart failure Acute kidney injury superimposed on CKD 11/22/23 Ambulatory dysfunction BERNADINE (acute kidney injury) (Acute) 11/22/23 Bilateral leg weakness (Acute) 11/22/23 Hypertension Hx of rheumatoid arthritis CAD (coronary artery disease) f/u zachary bergeron Hematoma of right lower leg (Acute) 07/18/23 Greater trochanteric pain syndrome Opioid dependence Greater trochanteric bursitis of left hip Rotator cuff arthropathy of left shoulder Mechanical low back pain Medication monitoring encounter Acquired foot deformity Laceration of right knee (Acute) 08/16/21 Pressure ulcer of toe of left foot, stage 4 07/12/21 T12 compression fracture Fever (Acute) 06/23/21 Weakness (Acute) 06/23/21 Lower extremity edema (Chronic) 06/21/21 Acquired hammer toe (Chronic) Neuropathy (Chronic) Stage IV pressure ulcer (Acute) 05/29/21 Pes anserine bursitis Status post right knee replacement Traumatic open wound of right lower leg (Acute) 02/21/21 Immunosuppression due to chronic steroid use Traumatic open wound of right lower leg with delayed healing (Acute) 12/15/20 Laceration of elbow, left (Acute) 11/23/20 Dehydration (Acute) 10/27/20 Pneumonia due to 2019 novel coronavirus (Acute) 10/27/20 Acute respiratory failure with hypoxia 10/27/20 Multifocal pneumonia 10/27/20 Rheumatoid arthritis (Acute) SARS-CoV-2 positive (Acute) 10/17/20 Weakness (Acute) 10/17/20 Fall 10/17/20 Bilateral knee pain History of total right knee replacement Postural imbalance 08/22/20 Entrapment neuropathy of peripheral nerve of lower extremity Venous insufficiency of both lower extremities (Chronic) Traumatic open wound of right lower leg (Acute) 04/12/20 Pes anserinus tendonitis of right lower extremity Left knee DJD Traumatic wound (Acute) 11/11/19 Left knee pain (Chronic) Postoperative seroma (Chronic) L2-4 Lumbar postlaminectomy syndrome (Chronic) Acquired right foot 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 Lumbar compression fracture (Chronic) L1 acute on chronic MRI 03/[address] 10/17/2020 Pes anserine bursitis Right knee pain Degenerative joint disease of knee Myofascial pain (Chronic) Sacroiliitis (Chronic) 11/20/18 Cervical radiculopathy (Chronic) Greater trochanteric bursitis (Chronic) Lumbago (Chronic) Lumbar radiculitis (Chronic) Peripheral neuropathy (Chronic) Facet syndrome, lumbar (Chronic) CAD (coronary artery disease) (Chronic) Osteoarthritis (Chronic) Myocardial infarct, 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) 11/14/17 Hypertension (Chronic) Dyslipidemia (Chronic) Osteoporosis (Chronic) Rheumatoid arthritis of shoulder (Chronic) Lumbar spinal stenosis (Chronic) Medical History Sepsis due to pneumonia Hypoxia Elevated troponin I level 11/22/23 Acute respiratory failure with hypoxemia 10/27/20 CAD (coronary artery disease) s/p 2 stents Open wound right hand, sees wound clinic Sacral neurostimulator in situ instructed to bring remote dos Hx of supraventricular tachycardia follows with [facility] cardiology AAA (abdominal aortic aneurysm) Abdomen/Pelvis CT 11/2023: Stable Right infrarenal aortic aneurysm measures 44 mm GERD (gastroesophageal reflux disease) Hx of migraines Hx of myocardial infarction (~2008) Lumbar spinal stenosis Postlaminectomy syndrome, lumbar region no current issues Dyslipidemia History of COVID-2020- [facility] admission with acute respiratory failure > no residual effects Neuropathy in both legs, rt>lt Right knee pain Status post TKA taking shots due to bursitis (no shots for at least 3 months) Surgical History Hx of toe surgery Bilateral Feet Second and Third Digit Flexor Tenotomy(Bilateral) Hx of colonoscopy Hx of heart artery stent ~2008, [facility], x1 stent, 2/2 CT ~2011, [facility], x1 stent, 2/2 heart symptoms; f/u zachary bergeron Hx of cardiac cath ~2008, [facility], x1 stent, 2/2 CT ~2011, [facility] [place], x1 stent, 2/2 heart symptoms; f/u zachary bergerno History of total shoulder replacement Right History of loop recorder no longer working > follows with Dr Bergeron S/P total knee arthroplasty Right History of lumbosacral spine surgery 50+ years for first one, 2nd one 2014, both lower back; flexible rainer and does lesi History of PTCA Remote hx "years ago" History of hysterectomy History of breast biopsy History of tonsillectomy History of adenoidectomy History of angioplasty Family History Father Myocardial infarction Brother Myocardial infarction Other Family history non-contributory Denies family history of Ovarian cancer Prostate cancer Breast cancer Colorectal cancer Social History Smoking Status: Never smoker Tobacco Type: Cigarettes Second Hand Exposure: No; Do You Dip or Chew Tobacco: No; Hx Alcohol Use: Yes Alcohol type: wine Alcohol type Comment: In the evenings. Alcohol Intake Frequency: 4 or More x per/Week Hx Substance Use: No Preferred Language: Luxembourger Communication Ability: Effective Visual Impairment: Limited Hearing Ability: Normal Emergency Vehicle Operations Instructor Required: No Beliefs That Will Affect Care: None marital status: Current Living Situation: Personal Care Facility Current Living Situation Comment: [facility] current occupational status: retired How many Children do You have: 7 Feels Safe at Home: Yes Diet: regular caffeine: No during the past year weight has: remained stable Assistive Devices: Glasses, Walker and Wheelchair Review of Systems All systems reviewed & are unremarkable except as noted in HPI & below. Physical Exam Sunita was seen at bedside this morning. She is in good spirits in no acute distress. Examination of the right leg shows signs of venous stasis changes. There is a 3 cm circular sore on the lateral aspect of the distal fibula with purulent and serosanguineous drainage. There is tenderness to palpation along the lateral aspect of the lower leg from mid calf down to the lateral malleolus. Noticeable area of fluctuance distal to the ruptured blister. Signs of cellulitis in the superficial tissues in this area. There is a small opening slightly smaller than a dime size at the inferior portion of the blister skin. Underlying muscle and tendon is not exposed. Passive range of motion exam does not elicit pain. Results & Data Results & Data Laboratory Results 02/27/25 02/27/25 02/26/25 07:42 07:41 11:26 WBC 12.06 H RBC 3.57 L Hgb 11.4 L Hct 35.0 L MCV 98.0 MCH 31.9 MCHC 32.6 RDW Std Deviation 54.6 H RDW Coeff of Bryan 14.9 H Plt Count 210 MPV 9.9 Sodium 139 Potassium 4.1 Chloride 108 H Carbon Dioxide 25 Anion Gap 6 BUN 30 H Creatinine 0.72 Est Cr Clr Drug Dosing 51.4 eGFR 79.87 BUN/Creatinine Ratio 41.7 H Glucose 122 H Estimat Average Glucose 143 Hemoglobin A1c 6.6 H Calcium 8.9 Phosphorus 3.4 Magnesium 2.3 Total Bilirubin 0.6 AST 10 L ALT 5 L Alkaline Phosphatase 48 Troponin I High Sens 43.3 H Total Protein 6.1 Albumin 3.2 L Globulin 2.9 Albumin/Globulin Ratio 1.1 Lyme Disease Screen 02/26/25 07:20 WBC RBC Hgb Hct MCV MCH MCHC RDW Std Deviation RDW Coeff of Bryan Plt Count MPV Sodium Potassium Chloride Carbon Dioxide Anion Gap BUN Creatinine Est Cr Clr Drug Dosing eGFR BUN/Creatinine Ratio Glucose Estimat Average Glucose Hemoglobin A1c Calcium Phosphorus Magnesium Total Bilirubin AST ALT Alkaline Phosphatase Troponin I High Sens Total Protein Albumin Globulin Albumin/Globulin Ratio Lyme Disease Screen Negative Diagnostic Findings . Lower Extremity CT 02/26/25 10:18 CT SCAN OF THE RIGHT TIBIA AND FIBULA WITH IV CONTRAST CLINICAL HISTORY: Right leg infection. Clinical concern for abscess. COMPARISON STUDY: Radiographs of the right tibia and fibula dated 02/26/2025. CT of the right knee dated 10/28/2024. The examination is degraded by streak artifact from a right knee arthroplasty. TECHNIQUE: Following the IV administration of 94 cc of Optiray 320, CT scan of the right tibia and fibula was performed from the knee to the ankle. Images are reviewed in the axial, sagittal, and coronal planes. IV contrast was administered without complication. A dose lowering technique was utilized adhering to the principles of ALARA. FINDINGS: The skeletal structures are osteopenic. A right knee arthroplasty is in place. There is no evidence of right tibial or fibular fracture. There is a right knee joint effusion. The ankle mortise is maintained. Arthritic change is noted in the partially imaged foot. There is advanced atherosclerotic calcification of the regional arteries. The ankle arteries appear patent. There is diffuse generalized atrophy of the regional musculature. The Achilles tendon is thickened and tendonotic with calcification. The tendon is intact as imaged. Subcutaneous soft tissue edema and fluid is seen throughout the right lower extremity, greatest distally. No soft tissue gas is seen. There is an approximately 3 x 1 cm pocket of fluid bulging from the dermal surface along the lateral aspect of the distal fibula seen on axial image #331. This may represent a large vesicle. There is an approximately 6.5 x 5 x 1 cm pocket of complex fluid in the soft tissues of the lateral ankle extending from the distal fibula to the lateral malleolus. No gas is seen within this collection, and this may communicate with the vesicle discussed above. IMPRESSION: 1. No acute bony abnormality is seen involving the right tibia or fibula. 2. There is diffuse subcutaneous edema and fluid seen throughout the right lower extremity. Correlate clinically for evidence of cellulitis. 3. There is an approximately 6.5 x 5 x 1 cm pocket of complex/slightly hyperdense fluid in the lateral soft tissues overlying the distal fibula/lateral malleolus. This is pathologically indeterminant and could represent a liquefied hematoma. The sterility of this fluid cannot be assessed by imaging and clinical correlation will be essential. 4. There is an approximately 3 x 1 cm pocket of fluid bulging from the dermal surface along the lateral aspect of the distal fibula. This may represent a large vesicle, and this overlies/may communicate with the above-mentioned complex fluid collection. ACT 112: Negative or not required by law. Electronically signed by: Preston Hammonds M.D. 02/26/2025 4:11 PM PG Care Time/CCT Total # of Minutes Spent Total Time Spent with Patient: Total time spent is greater than 50% in coordination of care (as documented) at patient's floor/unit and/or counseling patient: Coding [place] [address] IN/OBS CONSULT LVL 4,60M Patient Type Established History Problem Focused Exam Problem Focused Medical Decision Making Low Complexity Diagnoses Cellulitis of right leg L03.115 Abscess of leg, right L02.415
--- NOTE | 2025-02-27 13:01 | Hospitalist Progress Note ---
Date of Service February 27, 2025 Assessment & Plan (1) Cellulitis of right leg: (2) Elevated brain natriuretic peptide (BNP) level: (3) Paroxysmal atrial tachycardia: (4) ASCVD (arteriosclerotic cardiovascular disease): (5) Neuropathy: Plan Patient is a 89 year old F with a past medical history of bilateral severe carotid artery stenosis, AAA, HTN, dyslipidemia, diastolic CHF, CKD III, GERD, DDD, chronic back pain with opioid dependence, RA on Xeljanz, history of syncop e, history of unsustained vtach s/p implanted loop recorder, history of shingles, and ambulatory dysfunction presenting with right lower leg pain and weakness. Symptoms began 2 days ago with leg pain and worsened a day prior to admission with developing weakness and worsening right lower leg pain when ambulating to the bathroom, also with possible near syncopal event witnessed by staff at residential facility.. Has had a chronic right leg wound for several months, approx 6 months per report. Patient is currently at [facility] for rehab. #Cellulitis RLE, #Right lower extremity abscess History of right lower extremity wound; presents with pain, purulent discharge. CT of the leg shows approximately 6.5 x 5 x 1 cm pocket of complex/slightly hyperdense fluid in the lateral soft tissues overlying the distal fibula/lateral malleolus, approximately 3 x 1 cm pocket of fluid bulging from the dermal surface along the lateral aspect of the distal fibula. Underwent manual expression at bedside by orthopedic on February 27, 2025. Preliminary wound culture shows Staph aureus; sensitivity pending. Will follow- up on wound culture. Continuing current antibiotics for now Wound care consulted for comanagement Will consult infectious disease on Saturday after culture results are available Pain control with Tylenol, tramadol as needed #Chronic Heart Failure #Elevated trop * Lasix given in ED x 1; resume lasix from tomorrow am * history os hypotension, imdur stopped in December 2024 with [facility] for hypotension * Continue home BB #Paroxysmal Afib EKG showing AFib RVR with rate 103, no ST elevation, QTc 432. On metoprolol at home-> continue not on anticoagulation #ASCVD * On rosuvastatin-> hold while on Dapto #Neuropathy * Hx right leg pain, mostly intermittent and managed with gabapentin; has history of multiple ortho surgeries and OA * Continue home gabapentin * PT consult when able DVT Ppx: Heparin Code status: DNR/DNI PCP: Dr. Duncan Time spent evaluating patient, direct bedside care, chart review, placing orders, interpretation of diagnostic studies, discussion with consultants, patient, and family members, as well as other required patient management activities is 50 minutes Please note the above document was generated using voice recognition software. It may contain grammatical, syntax or spelling errors. Any formal questions or concerns about the content, text or information contained within the body of this dictation should be directly addressed to the provider for clarification Admission and Anticipated Discharge Date Admission Date: February 26, 2025 Subjective Patient is seen at bedside after she underwent a manual expression of the purulent material from her wound at bedside by orthopedic. She reports significant pain; requests pain medication at this time. Review of Systems Review of Systems: All systems reviewed & are unremarkable except as noted in Subjective Physical Exam Physical Exam: Constitutional: WD/WN, vitals as above, NAD, sitting up in bed, pleasant, conversing easily Respiratory: normal respiratory effort, lungs clear to auscultation, no wheeze, rales, rhonchi. Normal insp/exp effort, no accessory muscle use Cardiovascular: irregular, no murmur, no edema Vessels: no JVD or carotid bruit Chest: normal inspection of chest Abdomen: normal bowel sounds, soft, nontender, no hepatosplenomegaly Musculoskeletal: Multiple wounds in right lower extremity; dressing in place; clean and dry. Neurologic: PERRL, EOMI, accommodation nl, no face palsy, no dysarthria CN's II- XI intact bilaterally and moves all extremities Results & Data Results & Data Vital Signs (Past 12 Hours) Vital Signs Temp Pulse Resp BP Pulse Ox O2 Del Method 02/27/25 07:55 36.6 C 94 H 20 135/75 97 Room Air 02/27/25 03:23 36.5 C 88 12 139/77 96 Room Air
[2025-02-27] MEDS ORDERED: UPADACITINIB 15 MG TABERGR24H PO SCH (14:00)
[2025-02-27] MEDS ORDERED: ACETAMINOPHEN 1,000 MG/100 ML VIAL IV PRN (18:00)
[2025-02-27 18:30] LABS: Appearance Urine Clear (Clear); Bacteria Urine Automated None Seen (None Seen); Cast Urine Automated 0-2 /lpf (0-2); Epithelial Cell Urine Auto 0-2 /hpf (0-2); Glucose Urine UA Negative (Negative); RBC Urine Automated 0-2 /hpf (0-2); WBC Urine Automated 0-5 /hpf (0-5)
[2025-02-27] MEDS: POLYETHYLENE (MIRALAX) 17 GM PACK PO PRN (20:20)
[2025-02-27] MEDS: UPADACITINIB 15 MG TABERGR24H PO SCH (20:21)
[2025-02-27] MEDS: MELATONIN 3 MG TAB PO PRN (23:06)
[2025-02-28] MEDS ORDERED: UPADACITINIB 15 MG TABERGR24H PO SCH (09:00)
[2025-02-28 09:47] LABS: Hematocrit (blood only) 36.6 % (37.0-47.0); Hemoglobin 11.9 g/dL (12.0-16.0); Mean Corpuscular Hemoglobin 31.8 pg (25.0-34.0); Mean Corpuscular Volume 97.9 fL (80.0-100.0); Platelet Count 244 K/uL (130-400); RDW Standard Deviation 52.6 fL (36.4-46.3); Red Blood Count 3.74 M/uL (4.20-5.40); White Blood Count 10.68 K/ul (4.8-10.8)
[2025-02-28 10:03] LABS: Alanine Aminotransferase 7.0 U/L (7-52); Albumin Globulin Ratio 0.9 (0.9-2); Albumin Level 3.3 gm/dl (3.4-5.0); Alkaline Phosphatase 60.0 U/L (34-104); Anion Gap 8.0 (3-11); Bilirubin,Total 0.5 mg/dl (0.2-1.0); Blood Urea Nitrogen 31.0 mg/dl (6-23); Calcium 9.3 mg/dl (8.6-10.3); Carbon Dioxide 21.0 mmol/L (21-32); Chloride 106.0 mmol/L (98-107); Creatinine Clr Calc Pharmacy 52.1 ml/min; Globulin 3.6 gm/dl (2.5-4.0); Glucose 219.0 mg/dl (70-99(Fasting)); Magnesium 2.3 mg/dl (1.7-2.4); Potassium 4.7 mmol/L (3.5-5.1); Sodium 135.0 mmol/L (136-145); Total Protein 6.9 gm/dl (6.0-8.3)
--- NOTE | 2025-02-28 12:24 | Hospitalist Progress Note ---
Date of Service February 28, 2025 Assessment & Plan (1) Cellulitis of right leg: (2) Elevated brain natriuretic peptide (BNP) level: (3) Paroxysmal atrial tachycardia: (4) ASCVD (arteriosclerotic cardiovascular disease): (5) Neuropathy: Plan Patient is a 89 year old F with a past medical history of bilateral severe carotid artery stenosis, AAA, HTN, dyslipidemia, diastolic CHF, CKD III, GERD, DDD, chronic back pain with opioid dependence, RA on Xeljanz, history of syncop e, history of unsustained vtach s/p implanted loop recorder, history of shingles, and ambulatory dysfunction presenting with right lower leg pain and weakness. Symptoms began 2 days ago with leg pain and worsened a day prior to admission with developing weakness and worsening right lower leg pain when ambulating to the bathroom, also with possible near syncopal event witnessed by staff at residential facility.. Has had a chronic right leg wound for several months, approx 6 months per report. Patient is currently at [facility] for rehab. #Cellulitis RLE, #Right lower extremity abscess History of right lower extremity wound; presents with pain, purulent discharge. CT of the leg shows approximately 6.5 x 5 x 1 cm pocket of complex/slightly hyperdense fluid in the lateral soft tissues overlying the distal fibula/lateral malleolus, approximately 3 x 1 cm pocket of fluid bulging from the dermal surface along the lateral aspect of the distal fibula. Underwent manual expression at bedside by orthopedic on February 27, 2025. wound culture growing MRSA. Continuing current antibiotics for now Wound care consulted for comanagement Infectious disease consulted to determine duration and route of antiboitics. Pain control with Tylenol, tramadol as needed #Chronic Heart Failure #Elevated trop * Lasix given in ED x 1; resume lasix from tomorrow am * history os hypotension, [facility] * Continue home BB #Paroxysmal Afib EKG on admission showing AFib RVR with rate 103, no ST elevation, QTc 432. On metoprolol at home-> continue not on anticoagulation #ASCVD * On rosuvastatin-> hold while on Dapto #Neuropathy * Hx right leg pain, mostly intermittent and managed with gabapentin; has his tory of multiple ortho surgeries and OA * Continue home gabapentin * PT consult when able DVT Ppx: Heparin Code status: DNR/DNI PCP: Dr. Duncan Time spent evaluating patient, direct bedside care, chart review, placing orders, interpretation of diagnostic studies, discussion with consultants, patient, and family members, as well as other required patient management activities is 50 minutes Please note the above document was generated using voice recognition software. It may contain grammatical, syntax or spelling errors. Any formal questions or concerns about the content, text or information contained within the body of this dictation should be directly addressed to the provider for clarification Admission and Anticipated Discharge Date Admission Date: February 26, 2025 Subjective Patient seen and examined at bedside. Overnight, reports that she could not get much sleep. Got melatonin which helped her get some rest. Pain is currently well-controlled on current medication. Review of Systems Review of Systems: All systems reviewed & are unremarkable except as noted in Subjective Physical Exam Physical Exam: Constitutional: WD/WN, vitals as above, NAD, sitting up in bed, pleasant, conversing easily Respiratory: normal respiratory effort, lungs clear to auscultation, no wheeze, rales, rhonchi. Normal insp/exp effort, no accessory muscle use Cardiovascular: irregular, no murmur, no edema Vessels: no JVD or carotid bruit Chest: normal inspection of chest Abdomen: normal bowel sounds, soft, nontender, no hepatosplenomegaly Musculoskeletal: Multiple wounds in right lower extremity; dressing in place; soakage +nt Neurologic: PERRL, EOMI, accommodation nl, no face palsy, no dysarthria CN's II- XI intact bilaterally and moves all extremities Results & Data Results & Data Vital Signs (Past 12 Hours) Vital Signs Temp Pulse Resp BP BP Pulse Ox O2 Del Method 02/28/25 11:36 36.4 C 70 20 133/71 97 Room Air 02/28/25 08:04 36.7 C 57 L 18 136/74 98 Room Air 02/28/25 03:14 36.8 C 86 14 162/98 H 96 Room Air
--- NOTE | 2025-02-28 12:27 | Orthopedic Progress Note ---
Date of Service February 28, 2025 Assessment & Plan (1) Abscess of leg, right: Present on Admission?: Yes (2) Cellulitis of right leg: Present on Admission?: Yes Plan At this point we will continue with nonoperative treatment. Continue dry dressing changes twice daily. Her leg seems to be improving with current treatment of antibiotics. Culture results from abscess yesterday indicate Staph aureus. Susceptibilities are still pending. We will continue to follow-up with her daily to monitor improvement. Admission and Anticipated Discharge Date Admission Date: February 26, 2025 Belen Dorsey was seen at her bedside this morning. She states that she is doing well and does not have much pain. She states that her dressing was not changed overnight. She is concerned because the dressing appears to be saturated with fluid. Physical Exam Physical Exam: Examination right leg reveals dressing is still intact. It is saturated with serosanguineous fluid. Wound appears to be draining well. Tissue around the site of blister appears to be healthy. Purulent drainage is not appreciated and there was no deep pockets of fluid on palpation. Results & Data Vital Signs (Past 12 Hours) Vital Signs Temp Pulse Resp BP BP Pulse Ox O2 Del Method 02/28/25 11:36 36.4 C 70 20 133/71 97 Room Air 02/28/25 08:04 36.7 C 57 L 18 136/74 98 Room Air 02/28/25 03:14 36.8 C 86 14 162/98 H 96 Room Air PG Care Time/CCT Total # of Minutes Spent Total Time Spent with Patient: Total time spent is greater than 50% in coordination of care (as documented) at patient's floor/unit and/or counseling patient: Coding [place] [address] SUB INP/OBS CARE 04/04MIN Patient Type Established History Problem Focused Exam Problem Focused Medical Decision Making Low Complexity Diagnoses Abscess of leg, right L02.415 Cellulitis of right leg L03.115
[2025-02-28] MEDS: FUROSEMIDE 20 MG TAB PO SCH (13:54)
[2025-03-01] MEDS: ARTIFICIAL TEARS OP PRN (06:44)
[2025-03-01 08:39] LABS: Hematocrit (blood only) 31.4 % (37.0-47.0); Hemoglobin 10.2 g/dL (12.0-16.0); Mean Corpuscular Hemoglobin 31.9 pg (25.0-34.0); Mean Corpuscular Volume 98.1 fL (80.0-100.0); Platelet Count 255 K/uL (130-400); RDW Standard Deviation 52.1 fL (36.4-46.3); Red Blood Count 3.20 M/uL (4.20-5.40); White Blood Count 6.95 K/ul (4.8-10.8)
[2025-03-01 08:57] LABS: Alanine Aminotransferase 9.0 U/L (7-52); Albumin Globulin Ratio 1.0 (0.9-2); Albumin Level 3.0 gm/dl (3.4-5.0); Alkaline Phosphatase 61.0 U/L (34-104); Anion Gap 5.0 (3-11); Bilirubin,Total 0.4 mg/dl (0.2-1.0); Blood Urea Nitrogen 25.0 mg/dl (6-23); Calcium 9.0 mg/dl (8.6-10.3); Carbon Dioxide 25.0 mmol/L (21-32); Chloride 108.0 mmol/L (98-107); Creatinine Clr Calc Pharmacy 57.6 ml/min; Globulin 3.0 gm/dl (2.5-4.0); Glucose 174.0 mg/dl (70-99(Fasting)); Potassium 4.7 mmol/L (3.5-5.1); Sodium 138.0 mmol/L (136-145); Total Protein 6.0 gm/dl (6.0-8.3)
--- NOTE | 2025-03-01 09:29 | Orthopedic Progress Note ---
Date of Service March 01, 2025 Assessment & Plan (1) Cellulitis of right leg: (2) Abscess of leg, right: Plan * Continue Current Treatment * Recommend continued close management * Purulent drainage expressed yesterday by Dr. Giraldo, ideally this in combination with IV antibiotics will prevent further need for surgery * Continue daily dressing changes, Adaptic to blister area * Antibiotics per primary team * Weight bearing status: Activity as tolerated * Daily treatment: Physical Therapy/ Occupational Therapy per protocol * Pain control * DVT prophylaxis per primary team * Disposition: TBD * Remainder care per primary team * Will continue to follow Subjective .Active Problems: RLE cellulitis/abscess Bedside decompression yesterday w/ Dr Giraldo 89 y/o female with R ankle/lower leg wound. Feels somewhat improved following bedside procedure yesterday, but with her neuropathy denies having pain. Denies fever/chills, chest pain/SOB, nausea/vomiting. Otherwise no complaints. Review of Systems All systems reviewed & are unremarkable except as noted in HPI & below. Physical Exam . * General: Alert and oriented, no acute distress * Constitutional: well-developed, well-nourished. * Respiratory: Normal respiratory effort, no distress * Gastrointestinal: No tenderness to palpation, no rigidity or guarding. * Skin: No rash or lesion. * Neurologic: Grossly normal * Musculoskeletal: Right ankle dressing removed for exam. Chronic venous stasis changes, skin induration. Area of raw skin underlying blister site, also pi npoint drainage tract, no active drainage at time of exam however there is evidence of recent drainage on the dressing. Diffuse tenderness of the region to light palpation. AROM foot/ankle intact but limited which is consistent with her baseline mobility restrictions. Sensation intact plantar/dorsal foot. Brisk capillary refill. Results & Data Results & Data Laboratory Results . Diagnostic Findings . PG Care Time/CCT Total # of Minutes Spent Total Time Spent with Patient: Total time spent is greater than 50% in coordination of care (as documented) at patient's floor/unit and/or counseling patient: Coding Level of Care Code 49273 SUB INP/OBS CARE 04/04MIN Diagnoses Cellulitis of right leg L03.115 Abscess of leg, right L02.415
--- NOTE | 2025-03-01 13:00 | Hospitalist Progress Note ---
Date of Service March 01, 2025 Assessment & Plan (1) Cellulitis of right leg: (2) Elevated brain natriuretic peptide (BNP) level: (3) Paroxysmal atrial tachycardia: (4) ASCVD (arteriosclerotic cardiovascular disease): (5) Neuropathy: Plan Patient is a 89 year old F with a past medical history of bilateral severe carotid artery stenosis, AAA, HTN, dyslipidemia, diastolic CHF, CKD III, GERD, DDD, chronic back pain with opioid dependence, RA on Xeljanz, history of syncop e, history of unsustained vtach s/p implanted loop recorder, history of shingles, and ambulatory dysfunction presenting with right lower leg pain and weakness. Symptoms began 2 days ago with leg pain and worsened a day prior to admission with developing weakness and worsening right lower leg pain when ambulating to the bathroom, also with possible near syncopal event witnessed by staff at residential facility.. Has had a chronic right leg wound for several months, approx 6 months per report. Patient is currently at [facility] for rehab. #Cellulitis RLE, #Right lower extremity abscess History of right lower extremity wound; presents with pain, purulent discharge. CT of the leg shows approximately 6.5 x 5 x 1 cm pocket of complex/slightly hyperdense fluid in the lateral soft tissues overlying the distal fibula/lateral malleolus, approximately 3 x 1 cm pocket of fluid bulging from the dermal surface along the lateral aspect of the distal fibula. Underwent manual expression at bedside by orthopedic on February 27, 2025. wound culture growing MRSA. Plan to continue daptomycin; DC cefepime.. Patient not a candidate for surgery as per orthopedic and patient's wishes. Wound care consulted for [facility] Infectious disease consulted to help guide antibiotic treatment. Pain control with Tylenol, tramadol as needed #Chronic Heart Failure #Elevated trop * history os hypotension, imdur stopped in December 2024 with [facility] for hypotension * Continue home BB * on lasix-continue #Paroxysmal Afib EKG on admission showing AFib RVR with rate 103, no ST elevation, QTc 432. On metoprolol at home-> continue not on anticoagulation #ASCVD * On rosuvastatin-> hold while on Dapto #Neuropathy * Hx right leg pain, mostly intermittent and managed with gabapentin; has history of multiple ortho surgeries and OA * Continue home gabapentin * PT consult when able DVT Ppx: Heparin Code status: DNR/DNI PCP: Dr. Duncan Time spent evaluating patient, direct bedside care, chart review, placing orders, interpretation of diagnostic studies, discussion with consultants, patient, and family members, as well as other required patient management activities is 50 minutes Please note the above document was generated using voice recognition software. It may contain grammatical, syntax or spelling errors. Any formal questions or concerns about the content, text or information contained within the body of this dictation should be directly addressed to the provider for clarification Admission and Anticipated Discharge Date Admission Date: February 26, 2025 Subjective Patient seen and examined at bedside. She is comfortable; not in distress. Pain is well-controlled on current medication. Review of Systems Review of Systems: All systems reviewed & are unremarkable except as noted in Subjective Physical Exam Physical Exam: Constitutional: WD/WN, vitals as above, NAD, sitting up in bed, pleasant, conversing easily Respiratory: normal respiratory effort, lungs clear to auscultation, no wheeze, rales, rhonchi. Normal insp/exp effort, no accessory muscle use Cardiovascular: irregular, no murmur, no edema Vessels: no JVD or carotid bruit Chest: normal inspection of chest Abdomen: normal bowel sounds, soft, nontender, no hepatosplenomegaly Musculoskeletal: Multiple wounds in right lower extremity; dressing in place; soakage +nt Neurologic: PERRL, EOMI, accommodation nl, no face palsy, no dysarthria CN's II- XI intact bilaterally and moves all extremities Results & Data Results & Data Vital Signs (Past 12 Hours) Vital Signs Temp Pulse Pulse Resp BP Pulse Ox O2 Del Method 03/01/25 11:44 37.0 C 61 16 137/72 95 Room Air 03/01/25 07:53 36.7 C 73 16 161/74 H 97 Room Air 03/01/25 07:22 62 03/01/25 03:42 36.7 C 76 17 174/91 H 97 Room Air
--- NOTE | 2025-03-01 15:49 | Infectious Disease Consult ---
Date of Service March 01, 2025 Telehealth Information I performed this visit using a real-time telehealth connection between my location and the patients location ([facility]). After connecting through interactive tele-video, patient was identified by name and date of and/or wristband check.Patient (or authorized healthcare real estate representative) was informed that this was a telemedicine visit and it was being conducted confidentially over secure lines. My office door was closed and no one else was present in the room with me.Patient (or authorized healthcare real estate representative) provided consent to proceed with the visit, expressed an understanding of privacy and security of the telemedicine visit, and gave permission to have a hospital real estate representative in the room in order to assist with the visit and to conduct portions of the visit, as needed. I informed the patient (or authorized healthcare real estate representative) that I reviewed their record and presented the opportunity for them to ask any questions regarding the visit today. The patient agreed to participate. Assessment & Plan (1) Abscess of leg, right: (2) Cellulitis of right leg: Plan Can continue on IV daptomycin while inpatient. When ready for discharge, step- down to oral doxycycline 100 mg twice daily. I would aim for a 4 week course of oral doxycycline with a repeat CT scan of the right leg in around 3 weeks to follow up on the size of the abscess and determine the final antibiotic duration. History of Present Illness History of Present Illness 89-year-old woman with past medical history of severe bilateral carotid artery stenosis, HTN, diastolic congestive heart failure, CKD stage 3, chronic back pain with degenerative disease, rheumatoid arthritis, dyslipidemia and ambulatory dysfunction who was admitted to [facility] on 02/26 because of right lower leg pain and swelling. On presentation, she was afebrile but tachycardic at 102. The rest of the vitals were within normal limits. Initial workup showed leukocytosis of 14.5 (ANC 12.8), RVP panel was negative, and CT of the right lower extremity showed diffuse subcutaneous edema and fluid throughout the right lower extremity. It further demonstrated 6.5 x 5 x 1 cm pocket of complex slightly hyperdense fluid in the lateral soft tissues overlying the distal fibula and lateral malleolus. There was also 3 x 1 cm pocket of fluid bulging from the dermal surface along the lateral aspect of the distal fibula. Patient was seen by Orthopedic who performed I and D at bedside with a around 30 cm of purulent drainage and cultures growing MRSA. Allergies Allergy/AdvReac Type Severity Reaction Status Date / Time morphine Allergy Severe Anaphylaxis Verified 07/31/24 15:32 adhesive Allergy Intermediate Tape- rash Verified 07/31/24 15:32 hydroxychloroquine Allergy Intermediate Rash Verified 07/31/24 15:32 Sulfa (Sulfonamide Allergy Intermediate HIVES Verified 07/31/24 15:32 Antibiotics) pregabalin [From Lyrica] AdvReac Severe Edema Verified 07/31/24 15:32 benzonatate AdvReac Intermediate GI upset Verified 07/31/24 15:32 lisinopril AdvReac Intermediate GI Verified 07/31/24 15:32 symptoms, cough shrimp AdvReac Intermediate GI symptoms Verified 07/31/24 15:32 codeine AdvReac Mild Nausea Verified 07/31/24 15:32 Home Medications Medication Instructions Recorded Confirmed Type ascorbic acid (vitamin C) 500 mg 500 mg PO DAILY #30 tabs 10/31/24 02/26/25 Rx tablet (Vitamin C) aspirin 81 mg tablet,delayed 81 mg PO QAM #60 tabs 10/31/24 02/26/25 Rx release buprenorphine 15 mcg/hour weekly 1 patch topical WK #4 ea 10/31/24 02/26/25 Rx transdermal patch cholecalciferol (vitamin D3) 25 25 mcg PO QAM #30 caps 10/31/24 02/26/25 Rx mcg (1,000 unit) capsule (Vitamin D3) colesevelam 625 mg tablet 625 mg PO BID #60 tabs 10/31/24 02/26/25 Rx cyanocobalamin (vitamin B-12) 1,000 mcg PO QAM #30 tabs 10/31/24 02/26/25 Rx 1,000 mcg tablet (Vitamin B-12) docusate sodium 100 mg capsule 100 mg PO DAILY Constipation #30 10/31/24 02/26/25 Rx (Colace) caps famotidine 20 mg tablet 20 mg PO QAM #30 tabs 10/31/24 02/26/25 Rx lifitegrast 5 % eye drops in a 1 drp OPB BID #20 ea 10/31/24 02/26/25 Rx dropperette (Xiidra) metoprolol succinate 25 mg 12.5 mg (1/2 x 25 mg) PO BID #30 10/31/24 02/26/25 Rx tablet,extended release 24 hr tabs polyethylene glycol 400 1 % eye 1 drp ophthalmic (eye) TID PRN Dry 10/31/24 02/26/25 Rx drops (Visine Dry Eye Relief) Eyes #15 mL rosuvastatin 40 mg tablet 40 mg PO QAM #30 tabs 10/31/24 02/26/25 Rx simethicone 80 mg chewable tablet 80 mg PO Q6H PRN Gastrointestinal 10/31/24 02/26/25 Rx Spasms Or Cramping #14 tabs Milk of Magnesia 30 ml PO DAILY PRN Constipation 02/26/25 02/26/25 History Saccharomyces boulardii 250 mg 250 mg PO DAILY 02/26/25 02/26/25 History capsule (Florastor) acetaminophen 500 mg tablet 1,000 mg PO TID 02/26/25 02/26/25 History bisacodyl 10 mg rectal suppository 10 mg MN DAILY PRN Constipation 02/26/25 02/26/25 History (Dulcolax (bisacodyl)) calcium 500 mg (as 1 tab PO .AFTERNOON 02/26/25 02/26/25 History carbonate)-vitamin D3 5 mcg (200 unit) tablet (Oyster Shell Calcium-Vitamin D3) diclofenac sodium 1 % topical gel 4 g topical TID PRN Pain 02/26/25 02/26/25 History doxycycline hyclate 100 mg capsule 100 mg PO BID for 7 days 02/26/25 02/26/25 History furosemide 20 mg tablet 20 mg PO DAILY 02/26/25 02/26/25 History gabapentin 300 mg capsule 0 mg PO BID 02/26/25 02/26/25 History isosorbide mononitrate 30 mg 30 mg PO DAILY 02/26/25 02/26/25 History tablet,extended release 24 hr lidocaine 4 % topical patch 0 patch topical .EVERY 24 HOURS 02/26/25 02/26/25 History (Salonpas (lidocaine)) PRN painful joint or extremity melatonin 3 mg tablet 6 mg PO HS PRN Insomnia 02/26/25 02/26/25 History polyethylene glycol 3350 17 gram 17 g PO DAILY constipation 02/26/25 02/26/25 History oral powder packet (Miralax) pregabalin 50 mg capsule 50 mg PO BID 02/26/25 02/26/25 History sodium phosphates 19 gram-7 118 ml MN DAILY PRN Constipation 02/26/25 02/26/25 History gram/118 mL enema (Enema) tramadol 50 mg tablet 25 mg PO HS 02/26/25 02/26/25 History tramadol 50 mg tablet 25 mg PO Q8H PRN Pain 02/26/25 02/26/25 History upadacitinib 15 mg tablet,extended 15 mg PO DAILY 02/26/25 02/26/25 History release 24 hr (Rinvoq) upadacitinib 15 mg tablet,extended 15 mg PO QAM 02/26/25 02/26/25 History release 24 hr (Rinvoq) vit C 250 mg-vit E 90 mg-zinc 40 1 tab PO QAM 02/26/25 02/26/25 History mg-copper 1 [id number]-ghjaps capsule (PreserVision AREDS-2) Patient History Medical History Sepsis due to pneumonia Hypoxia Elevated troponin I level 11/22/23 Acute respiratory failure with hypoxemia 10/27/20 CAD (coronary artery disease) s/p 2 stents Open wound right hand, sees wound clinic Sacral neurostimulator in situ instructed to bring remote dos Hx of supraventricular tachycardia follows with [facility] cardiology AAA (abdominal aortic aneurysm) Abdomen/Pelvis CT 11/2023: Stable Right infrarenal aortic aneurysm measures 44 mm GERD (gastroesophageal reflux disease) Hx of migraines Hx of myocardial infarction (~2008) Lumbar spinal stenosis Postlaminectomy syndrome, lumbar region no current issues Dyslipidemia History of COVID-2020- [facility] admission with acute respiratory failure > no residual effects Neuropathy in both legs, rt>lt Right knee pain Status post TKA taking shots due to bursitis (no shots for at least 3 months) Surgical History Hx of toe surgery Bilateral Feet Second and Third Digit Flexor Tenotomy(Bilateral) Hx of colonoscopy Hx of heart artery stent ~2008, [facility], x1 stent, 2/2 [place] ~2011, [facility], x1 stent, 2/2 heart symptoms; f/u ember [facility] Hx of cardiac cath ~2008, [facility], x1 stent, 2/2 [place] ~2011, [facility], x1 stent, 2/2 heart symptoms; f/u zachary bergeron History of total shoulder replacement Right History of loop recorder no longer working > follows with Dr Bergeron S/P total knee arthroplasty Right History of lumbosacral spine surgery 50+ years for first one, 2nd one 2014, both lower back; flexible rainer and does lesi History of PTCA Remote hx "years ago" History of hysterectomy History of breast biopsy History of tonsillectomy History of adenoidectomy History of angioplasty Family History Father Myocardial infarction Brother Myocardial infarction Other Family history non-contributory Denies family history of Ovarian cancer Prostate cancer Breast cancer Colorectal cancer Social History Smoking Status: Never smoker Tobacco Type: Cigarettes Second Hand Exposure: No; Do You Dip or Chew Tobacco: No; Hx Alcohol Use: Yes Alcohol type: wine Alcohol type Comment: In the evenings. Alcohol Intake Frequency: 4 or More x per/Week Hx Substance Use: No Preferred Language: Kyrgyz Communication Ability: Effective Visual Impairment: Limited Hearing Ability: Normal Intranet Support Required: No Beliefs That Will Affect Care: None marital status: Current Living Situation: Personal Care Facility Current Living Situation Comment: [facility] current occupational status: retired How many Children do You have: 7 Feels Safe at Home: Yes Diet: regular caffeine: No during the past year weight has: remained stable Assistive Devices: Walker Review of Systems Negative except for what was mentioned in the H&P. Physical Exam Could not be performed as the visit was conducted via TeleMed. Results & Data Vital Signs (Past 12 Hours) Vital Signs Temp Pulse Pulse Resp BP Pulse Ox O2 Del Method 03/01/25 11:44 37.0 C 61 16 137/72 95 Room Air 03/01/25 07:53 36.7 C 73 16 161/74 H 97 Room Air 03/01/25 07:22 62 Laboratory Results 02/26: 2 sets of blood culture negative to date 02/26: Left leg drainage culture growing MRSA 02/27: Left leg abscess from bedside I and D growing MRSA Diagnostic Findings CT right lower extremity on 02/26: 1. No acute bony abnormality is seen involving the right tibia or fibula. 2. There is diffuse subcutaneous edema and fluid seen throughout the right lower extremity. Correlate clinically for evidence of cellulitis. 3. There is an approximately 6.5 x 5 x 1 cm pocket of complex/slightly hyperdense fluid in the lateral soft tissues overlying the distal fibula/lateral malleolus. This is pathologically indeterminant and could represent a liquefied hematoma. The sterility of this fluid cannot be assessed by imaging and clinical correlation will be essential. 4. There is an approximately 3 x 1 cm pocket of fluid bulging from the dermal surface along the lateral aspect of the distal fibula. This may represent a large vesicle, and this overlies/may communicate with the above-mentioned complex fluid collection.
[2025-03-02 05:00] LABS: Hematocrit (blood only) 31.7 % (37.0-47.0); Hemoglobin 10.5 g/dL (12.0-16.0); Immature Granulocytes # (auto) 0.33 K/uL (0.01-0.20); Immature Granulocytes % (auto) 4.9 %; Mean Corpuscular Hemoglobin 31.9 pg (25.0-34.0); Mean Corpuscular Volume 96.4 fL (80.0-100.0); Platelet Count 283 K/uL (130-400); RDW Standard Deviation 50.4 fL (36.4-46.3); Red Blood Count 3.29 M/uL (4.20-5.40); White Blood Count 6.78 K/ul (4.8-10.8)
[2025-03-02 05:15] LABS: Anion Gap 7.0 (3-11); Blood Urea Nitrogen 28.0 mg/dl (6-23); Calcium 9.2 mg/dl (8.6-10.3); Carbon Dioxide 23.0 mmol/L (21-32); Chloride 108.0 mmol/L (98-107); Creatinine Clr Calc Pharmacy 58.5 ml/min; Glucose 145.0 mg/dl (70-99(Fasting)); Potassium 4.6 mmol/L (3.5-5.1); Sodium 138.0 mmol/L (136-145)
--- NOTE | 2025-03-02 08:44 | Orthopedic Progress Note ---
Date of Service March 02, 2025 Assessment & Plan (1) Cellulitis of right leg: (2) Abscess of leg, right: Plan * Continue Current Treatment * Recommend continued close management * Purulent drainage expressed 02/[address] Giraldo, ideally this in combination with IV antibiotics will prevent further need for surgery * Continue daily dressing changes, Adaptic to blister area * Antibiotics per primary team * Weight bearing status: Activity as tolerated * Daily treatment: Physical Therapy/ Occupational Therapy per protocol * Pain control * DVT prophylaxis per primary team * Disposition: Return to facility * Will need continued wound care * Remainder care per primary team * Will continue to follow while hospitalized Subjective .Active Problems: RLE cellulitis/abscess Bedside decompression 02/28 w/ Dr Giraldo 89 y/o female with R ankle/lower leg wound. Feels somewhat improved following bedside procedure, but with her neuropathy denies having pain. Denies fever/chills, chest pain/SOB, nausea/vomiting. Otherwise no complaints. Review of Systems All systems reviewed & are unremarkable except as noted in HPI & below. Physical Exam * Musculoskeletal: Right ankle dressing removed for exam. Chronic venous stasis changes, skin induration. Area of raw skin underlying blister site with fresh bleeding, also pinpoint drainage tract, no active drainage at time of exam however there is evidence of recent drainage on the dressing. Drainage appears serosanguineous in nature, no purulence appreciated. Diffuse tenderness of the region to light palpation. AROM foot/ankle intact but limited which is consistent with her baseline mobility restrictions. Sensation intact plantar/dorsal foot. Brisk capillary refill. Results & Data Results & Data Laboratory Results . Diagnostic Findings . PG Care Time/CCT Total # of Minutes Spent Total Time Spent with Patient: Total time spent is greater than 50% in coordination of care (as documented) at patient's floor/unit and/or counseling patient: Coding [place] [address] SUB INP/OBS CARE 04/04MIN Patient Type Established History Problem Focused Exam Problem Focused Medical Decision Making Straight Forward Diagnoses Cellulitis of right leg L03.115 Abscess of leg, right L02.415
[2025-03-02] MEDS: BUPRENORPHINE 10 MCG/HR TDSY TD SCH (09:28)
[2025-03-02] MEDS: BUPRENORPHINE 5 MCG/HR TDSY TD SCH (09:28)
[2025-03-02] MEDS: REMOVE & WASTE BUTRANS PATCH 1 EA EA SCH (09:30)
--- NOTE | 2025-03-02 16:04 | Hospitalist Progress Note ---
Date of Service March 02, 2025 Assessment & Plan (1) Cellulitis of right leg: (2) Elevated brain natriuretic peptide (BNP) level: (3) Paroxysmal atrial tachycardia: (4) ASCVD (arteriosclerotic cardiovascular disease): (5) Neuropathy: Plan Patient is a 89 year old F with a past medical history of bilateral severe carotid artery stenosis, AAA, HTN, dyslipidemia, diastolic CHF, CKD III, GERD, DDD, chronic back pain with opioid dependence, RA on Xeljanz, history of syncop e, history of unsustained vtach s/p implanted loop recorder, history of shingles, and ambulatory dysfunction presenting with right lower leg pain and weakness. Symptoms began 2 days ago with leg pain and worsened a day prior to admission with developing weakness and worsening right lower leg pain when ambulating to the bathroom, also with possible near syncopal event witnessed by staff at residential facility.. Has had a chronic right leg wound for several months, approx 6 months per report. Patient is currently at [facility] for rehab. #Cellulitis RLE, #Right lower extremity abscess History of right lower extremity wound; presents with pain, purulent discharge. CT of the leg shows approximately 6.5 x 5 x 1 cm pocket of complex/slightly hyperdense fluid in the lateral soft tissues overlying the distal fibula/lateral malleolus, approximately 3 x 1 cm pocket of fluid bulging from the dermal surface along the lateral aspect of the distal fibula. Underwent manual expression at bedside by orthopedic on February 27, 2025. wound culture growing MRSA. Plan to continue daptomycin; DC cefepime.. Patient not a candidate for surgery as per orthopedic and patient's wishes. Wound care consulted for comanagement Infectious disease evaled - Continue with IV daptomycin while inpatient, stepdown to oral Doxy 100 mg twice daily for total of 4-week course with a repeat CT scan of the right leg in around 3 weeks of treatment to follow-up on the size of abscess and determine final antibiotic duration. Patient and her [id number] has been explained about this at bedside. Pain control with Tylenol, tramadol as needed #Chronic Heart Failure #Elevated trop * history os hypotension, imdur stopped in December 2024 with [facility] for hypotension * Continue home BB * on lasix-continue #Paroxysmal Afib EKG on admission showing AFib RVR with rate 103, no ST elevation, QTc 432. On metoprolol at home-> continue not on anticoagulation #ASCVD * On rosuvastatin-> hold while on Dapto #Neuropathy * Hx right leg pain, mostly intermittent and managed with gabapentin; has history of multiple ortho surgeries and OA * Continue home gabapentin * PT consult when able DVT Ppx: Heparin Code status: DNR/DNI PCP: Dr. Duncan Please note the above document was generated using voice recognition software. It may contain grammatical, syntax or spelling errors. Any formal questions or concerns about the content, text or information contained within the body of this dictation should be directly addressed to the provider for clarification Admission and Anticipated Discharge Date Admission Date: February 26, 2025 Subjective Patient seen and examined at bedside. She is comfortable; not in distress. Pain is well-controlled on current medication per pt Physical Exam Physical Exam: Constitutional: WD/WN, NAD, sitting up in bed, pleasant, conversing easily Respiratory: normal respiratory effort, lungs clear to auscultation, no wheeze, rales, rhonchi. Normal insp/exp effort, no accessory muscle use Cardiovascular: irregular, no murmur, no edema Vessels: no JVD or carotid bruit Chest: normal inspection of chest Abdomen: normal bowel sounds, soft, nontender, no hepatosplenomegaly Musculoskeletal: Multiple wounds in right lower extremity; dressing in place; No soakage Neurologic: PERRL, EOMI, accommodation nl, no face palsy, no dysarthria CN's II- XI intact bilaterally and moves all extremities Results & Data Results & Data Vital Signs (Past 12 Hours) Vital Signs Temp Pulse Pulse Resp BP BP Pulse Ox 03/02/25 11:16 37.0 C 57 L 20 153/77 H 97 03/02/25 07:59 37.0 C 65 18 149/92 H 96 03/02/25 07:00 58 L O2 Del Method 03/02/25 11:16 Room Air 03/02/25 07:59 Room Air 03/02/25 07:00
[2025-03-02 20:08] VITALS: RESP 18
--- NOTE | 2025-03-03 08:19 | Orthopedic Progress Note ---
Date of Service March 03, 2025 Assessment & Plan (1) Cellulitis of right leg: (2) Abscess of leg, right: Plan * Continue Current Treatment * Recommend continued close management * Purulent drainage expressed 02/[address] Giraldo, ideally this in combination with IV antibiotics will prevent further need for surgery * Continue daily dressing changes, Adaptic to blister area * Antibiotics per primary team * Weight bearing status: Activity as tolerated * Daily treatment: Physical Therapy/ Occupational Therapy per protocol * Pain control * DVT prophylaxis per primary team * Disposition: Return to facility * Will need continued wound care at living facility * Remainder care per primary team * Will continue to follow while hospitalized Subjective Active Problems: RLE cellulitis/abscess Bedside decompression 02/28 w/ Dr Giraldo 89 y/o female with R ankle/lower leg wound. Feels somewhat improved following bedside procedure, but with her neuropathy denies having pain. Denies fever/chills, chest pain/SOB, nausea/vomiting. Otherwise no complaints. Review of Systems All systems reviewed & are unremarkable except as noted in HPI & below. Physical Exam * Musculoskeletal: Right ankle dressing removed for exam. Chronic venous stasis changes, skin induration. Area of raw skin underlying blister site with fresh bleeding, also pinpoint drainage tract, no active drainage at time of exam however there is evidence of recent drainage on the dressing. Drainage appears serosanguineous in nature, no purulence appreciated. Diffuse tenderness of the region to light palpation. AROM foot/ankle intact but limited which is consistent with her baseline mobility restrictions. Sensation intact plantar/dorsal foot. Brisk capillary refill. Results & Data Results & Data Laboratory Results . Diagnostic Findings . PG Care Time/CCT Total # of Minutes Spent Total Time Spent with Patient: Total time spent is greater than 50% in coordination of care (as documented) at patient's floor/unit and/or counseling patient: Coding Patient Type Established Medical Decision Making Low Complexity Diagnoses Cellulitis of right leg L03.115 Abscess of leg, right L02.415
[2025-03-03 08:27] VITALS: PULSE 78; TEMP 98.3; O2SAT 94
[2025-03-03 11:05] VITALS: BP 149/92
--- NOTE | 2025-03-03 15:33 | Discharge Summary ---
Date of Service March 03, 2025 Admission HPI Per Admitting Provider Patient is a 89 year old F with a past medical history of bilateral severe carotid artery stenosis, AAA, HTN, dyslipidemia, diastolic CHF, CKD III, GERD, DDD, chronic back pain with opioid dependence, RA on Xeljanz, history of syncope, history of unsustained vtach s/p implanted loop recorder, history of shingles, and ambulatory dysfunction presenting with right lower leg pain and weakness. Symptoms began 2 days ago with leg pain and worsened yesterday afternoon with developing weakness and worsening right lower leg pain when ambulating to the bathroom, also with possible near syncopal event witnessed by staff at residential facility. Patient feels she felt weaker in the moment and did not fall. No fever, trauma, chest pain, shortness of breath. This morning became drowsy, fatigue and persistent weakness. Has had a chronic right leg wound for several months, approx 6 months per report. Patient is currently at [facility] for rehab. Denies fever, chills, weight loss, headache, cognitive changes, vision/hearing changes, chest pain, SOB, difficulty breathing, urinary concerns, N/V/D, joint swelling/pain, bleeding, bruising. Discussed with ED provider labs (ESR/CRP with leukocytosis) cellulitis management with Khan and cefepime, rationale for admission. In the emergency department, patient was hemodynamically stable, afebrile and tachycardic to 110. Leukocytosis noted with white count 14K, normal lactate and procal elevation. Not hypoxic or febrile. Tachycardic in the ED with HR's 106. EKG showing A Fib RVR with rate 103, no ST elevation, QTc 432. Mag level 2.2. TSH normal. Biofire negative. Vanco and Cefepime given in the ED for suspected cellulitis. Blood and wound cultures collected. Doppler US of RLE with slightly obscured calf vessels but no evidence of deep venous thrombus within the right lower extremity. Patient is not anticoagulated. Most likely left leg pain relating to cellulitis, possible venous stasis, but will rule out DVT. Also has a history of neuropathy to RLE, has had multiple back surgeries, chronic leg pain and takes gabapentin. Possible HF component to present illness with an elevated BNP 335 with slight Troponin elevation to 34. No chest pain or significant peripheral swelling. Lungs clear on exam. Chest Xray showing right lower zone paracardiac opacities and interstitial coarsening, inflammatory vs interstitial; mild pleural effusio n/thickening; Left midlung zone atelectatic changes. Lasix given in the ED. Renal functioning stable with Creatinine 0.9. Clinically dry on exam. Gentle fluids started. Tib/Fib Xray showing No acute fracture or dislocation. No focal bone lesion; Advanced atherosclerotic calcifications of the leg arteries. CT leg ordered and pending for rule out abscess. History obtained primarily from the patient and via hospitalization record. The patient's family was at the bedside and assisted with history of present illness, medications, and events leading up to this admission. External chart review obtained from [facility]. Admission Exam Per Admitting Provider VITALS: Reviewed. WEIGHT/BMI reviewed. GEN: Healthy appearing, well-developed, NAD. PSYCH: Good Judgment. AOx3. Normal memory, mood, and affect. HEENT -Head: NC/AT; -Eyes: PERRL, EOMI. No discharge or redness; -Ears: External ears are normal. Normal TMs. -Nose: Normal nares. -Mouth and throat: Dry, cracked lips. Normal gums, mucosa, palate,. Good dentition. NECK: Supple, with no masses. CV: Regular, irregular, tachy, no murmurs, non-pitting edema RLE LUNGS: CTAB, no w/r/c. sats ok ABD: Soft, NT/ND, NBS, no masses or organomegaly. : N/A SKIN: RLE with erythema, flaky skin, large bulla above malleolus, swelling, purulent to lateral calf MSK: 1/5 strength to RLE, otherwise 4/5 x 3 NEURO: CN II-XII grossly intact, Speech clear. No focal deficits. Principal Diagnosis Cellulitis RLE, Right lower extremity abscess Discharge Exam Constitutional: WD/WN, NAD, sitting up in bed, pleasant, conversing easily Respiratory: normal respiratory effort, lungs clear to auscultation, no wheeze, rales, rhonchi. Normal insp/exp effort, no accessory muscle use Cardiovascular: irregular, no murmur, no edema Vessels: no JVD or carotid bruit Chest: normal inspection of chest Abdomen: normal bowel sounds, soft, nontender, no hepatosplenomegaly Musculoskeletal: Multiple wounds in right lower extremity; dressing in place; No soakage Neurologic: PERRL, EOMI, accommodation nl, no face palsy, no dysarthria CN's II- XI intact bilaterally and moves all extremities Discharge Data Allergies Allergy/AdvReac Type Severity Reaction Status Date / Time morphine Allergy Severe Anaphylaxis Verified 07/31/24 15:32 adhesive Allergy Intermediate Tape- rash Verified 07/31/24 15:32 hydroxychloroquine Allergy Intermediate Rash Verified 07/31/24 15:32 Sulfa (Sulfonamide Allergy Intermediate HIVES Verified 07/31/24 15:32 Antibiotics) pregabalin [From Lyrica] AdvReac Severe Edema Verified 07/31/24 15:32 benzonatate AdvReac Intermediate GI upset Verified 07/31/24 15:32 lisinopril AdvReac Intermediate GI Verified 07/31/24 15:32 symptoms, cough shrimp AdvReac Intermediate GI symptoms Verified 07/31/24 15:32 codeine AdvReac Mild Nausea Verified 07/31/24 15:32 Consultations 02/26/25 08:30 ED Decision to Admit Stat 02/26/25 16:58 Consult Orthopedic Surgery Routine 02/28/25 12:23 Consult Infectious Diseases Routine Ordered Studies 02/26/25 06:13 US venous doppler LE RT Stat 02/26/25 10:18 CT tib/fib RT w con Urgent Hospital Course (1) Cellulitis of right leg: (2) Elevated brain natriuretic peptide (BNP) level: (3) Paroxysmal atrial tachycardia: (4) ASCVD (arteriosclerotic cardiovascular disease): (5) Neuropathy: Plan Patient is a 89 year old F with a past medical history of bilateral severe carotid artery stenosis, AAA, HTN, dyslipidemia, diastolic CHF, CKD III, GERD, DDD, chronic back pain with opioid dependence, RA on Xeljanz, history of syncope, history of unsustained vtach s/p implanted loop recorder, history of shingles, and ambulatory dysfunction presenting with right lower leg pain and weakness. Symptoms began 2 days ago with leg pain and worsened a day prior to admission with developing weakness and worsening right lower leg pain when ambulating to the bathroom, also with possible near syncopal event witnessed by staff at residential facility.. Has had a chronic right leg wound for several months, approx 6 months per report. Patient is currently at [facility] for rehab. #Cellulitis RLE, #Right lower extremity abscess History of right lower extremity wound; presents with pain, purulent discharge. CT of the leg shows approximately 6.5 x 5 x 1 cm pocket of complex/slightly hyperdense fluid in the lateral soft tissues overlying the distal fibula/lateral malleolus, approximately 3 x 1 cm pocket of fluid bulging from the dermal surface along the lateral aspect of the distal fibula. Underwent manual expression at bedside by orthopedic on February 27, 2025. wound culture growing MRSA. Plan to continue daptomycin; DC cefepime.. Patient not a candidate for surgery as per orthopedic and patient's wishes. Wound care consulted for comanagement Infectious disease evaled - Continue with IV daptomycin while inpatient, stepdown to oral Doxy 100 mg twice daily for total of 4-week course with a repeat CT scan of the right leg in around 3 weeks of treatment to follow-up on the size of abscess and determine final antibiotic duration. Patient and her [id number] has been explained about this at bedside. Pain control with Tylenol, tramadol as needed #Chronic Heart Failure #Elevated trop * history os hypotension, imdur stopped in December 2024 with [facility] for hypotension * Continue home BB * on lasix-continue * BP has been high while in hospital, will resume imdur #Paroxysmal Afib EKG on admission showing AFib RVR with rate 103, no ST elevation, QTc 432. On metoprolol at home-> continue not on anticoagulation #ASCVD * On rosuvastatin-> hold while on Dapto #Neuropathy * Hx right leg pain, mostly intermittent and managed with gabapentin; has history of multiple ortho surgeries and OA * Continue home gabapentin * PT consult when able DVT Ppx: Heparin Code status: DNR/DNI PCP: Dr. Duncan Patient is being discharged to SNF with following instructions at the point of discharge: Follow-up with your primary care physician within a week time and likely you will need labs CBC/CMP/magnesium/phosphorus. Follow-up with wound care upon discharge. Follow-up with orthopedics in 1 to 2 weeks time upon discharge. Infectious disease evaluated you while in the hospital, you will be discharged on doxycycline to complete 4-week treatment course. You are recommended to get a CT scan of your right leg 1 week before the completion of your antibiotic course to determine final antibiotic duration. Follow-up with infectious disease in 3 weeks time upon discharge. Taking medications as prescribed. Please make sure that you are able to get your medications today by calling your pharmacy before you leave the hospital so that your treatment continuity is not broken. Please note the above document was generated using voice recognition software. It may contain grammatical, syntax or spelling errors. Any formal questions or concerns about the content, text or information contained within the body of this dictation should be directly addressed to the provider for clarification Home Health Attestation I certify that this patient is under my care and that I, or a physicians engineering inspection assistant working with me, had a face to-face encounter that meets the home health [id number] encounter requirements with this patient. The encounter with the patient was in whole, or in part, for the following medical condition, which is the primary reason for home health care (list medical condition): I certify that, based on my findings, the following services are medically necessary home health services: My clinical findings support the need for the above services because: Further, I certify that my clinical findings support that this patient is homebound (i.e. absences from home require considerable and taxing effort and are for medical reasons or baptism services or infrequently or of short duration when for other reasons) because: Certification for Home Health Services: Based on the above findings, I certify that this patient is confined to the home and needs intermittent [facility] care, physical therapy and/or speech therapy or continues to need occupational therapy. The patient is under my care, and I have initiated the establishment of the plan of care. This patient will be followed by a physician who will periodically review the plan of care. Total Time Total Time Spent Total Time Spent (In Minutes): 45 Discharge Plan Discharge Items Patient Disposition: Transfer Care Home Fac Reason For Visit: CELLULITIS Discharge Diagnosis: Cellulitis RLE, Right lower extremity abscess Condition on Discharge: Fair Activity: Resume your previous activity Non-emergency contact: Primary Care Provider Call non-emergency contact if: you have any medication questions Follow-up/Referrals: Mac Duncan MD [Primary Care Provider] - Wiliam Giraldo DO [Physician] - Diet: Heart Healthy Addtl Attending Provider Instructions: Follow-up with your primary care physician within a week time and likely you will need labs CBC/CMP/magnesium/phosphorus. Follow-up with wound care upon discharge. Follow-up with orthopedics in 1 to 2 weeks time upon discharge. Infectious disease evaluated you while in the hospital, you will be discharged on doxycycline to complete 4-week treatment course. You are recommended to get a CT scan of your right leg 1 week before the completion of your antibiotic course to determine final antibiotic duration. Follow-up with infectious disease in 3 weeks time upon discharge. Taking medications as prescribed. Please make sure that you are able to get your medications today by calling your pharmacy before you leave the hospital so that your treatment continuity is not broken. Addtl [employer] Provider Instructions: RLE wound care instructions * continue daily (or PRN sooner) dressing changes to R ankle/Lower leg wound * Gently cleanse area with saline as needed * Apply adaptic/Xeroform or other nonadhesive dressing to the raw blister area * cover with gauze * Secure with gentle FERNY wrap/compression Pending Studies at Discharge: Yes Stand-Alone Forms: My [facility] Skilled Items Patient informed of condition?: Yes DNR: Yes Discharge Level of Care: Skilled Communicable Disease: No Discharge Prognosis: Stable Lines: None Urinary Catheter: No Medications and DC Order Prescriptions: New doxycycline hyclate 100 mg tablet 100 mg PO BID 23 Days Qty: 46 0RF Continued tramadol 50 mg Tablet 25 mg PO HS tramadol 50 mg Tablet 25 mg PO Q8H PRN (Reason: Pain) bisacodyl [Dulcolax (bisacodyl)] 10 mg Suppository 10 mg UT DAILY PRN (Reason: Constipation) PreserVision AREDS-2 250-90-40-1 mg Capsule 1 tab PO QAM Rinvoq 15 mg tablet extended release 24 hr 15 mg PO QAM polyethylene glycol 3350 [Miralax] 17 gram powder in packet 17 g PO DAILY calcium carbonate-vitamin D3 [Oyster Shell Calcium-Vit D3] 500 mg-5 mcg (200 unit) tablet 1 tab PO .AFTERNOON lidocaine [Salonpas (lidocaine)] 4 % adhesive patch,medicated 0 patch TOPICAL .EVERY 24 HOURS PRN (Reason: painful joint or extremity) Patient Comments: 02/25- Not on faxed list unable to verify melatonin 3 mg tablet 6 mg PO HS PRN (Reason: Insomnia) acetaminophen 500 mg tablet 1,000 mg PO TID gabapentin 300 mg capsule 0 mg PO BID Patient Comments: 02/25- Not on faxed list unable to verify. original: 300mg po bid Rinvoq 15 mg Tablet Extended Release 24 Hr 15 mg PO DAILY isosorbide mononitrate 30 mg tablet extended release 24 hr 30 mg PO DAILY Enema 19-7 gram/118 mL Enema 118 ml UT DAILY PRN (Reason: Constipation) furosemide 20 mg Tablet 20 mg PO DAILY Saccharomyces boulardii [Florastor] 250 mg Capsule 250 mg PO DAILY diclofenac sodium 1 % Gel 4 g TOPICAL TID PRN (Reason: Pain) Rx Instructions: apply to single knee, ankle, foot; for foot includes sole/toes/top of foot Milk of Magnesia 30 ml PO DAILY PRN (Reason: Constipation) metoprolol succinate 25 mg Tablet Extended Release 24 Hr 12.5 mg PO BID Qty: 30 0RF Patient Comments: cyanocobalamin (vitamin B-12) [Vitamin B-12] 1,000 mcg Tablet 1,000 mcg PO QAM Qty: 30 0RF aspirin 81 mg tablet,delayed release (DR/EC) 81 mg PO QAM Qty: 60 0RF famotidine 20 mg tablet 20 mg PO QAM Qty: 30 0RF ascorbic acid (vitamin C) [Vitamin C] 500 mg Tablet 500 mg PO DAILY Qty: 30 0RF colesevelam 625 mg tablet 625 mg PO BID Qty: 60 0RF Rx Instructions: take with morning and evening meals docusate sodium [Colace] 100 mg capsule 100 mg PO DAILY Qty: 30 0RF simethicone 80 mg Tablet,Chewable 80 mg PO Q6H PRN (Reason: Gastrointestinal Spasms Or Cramping) Qty: 14 0RF cholecalciferol (vitamin D3) [Vitamin D3] 25 mcg (1,000 unit) capsule 25 mcg PO QAM Qty: 30 0RF buprenorphine 15 mcg/hour patch weekly 1 patch topical WK Qty: 4 0RF Rx Instructions: CHANGE ON TUESDAYS Xiidra 5 % Dropperette 1 drp OPB BID Qty: 20 0RF Patient Comments: Rx Instructions: administer approximately 12 hours apart Visine Dry Eye Relief 1 % Drops 1 drp OPHTHALMIC (EYE) TID PRN (Reason: Dry Eyes) Qty: 15 0RF Held rosuvastatin 40 mg tablet 40 mg PO QAM Qty: 30 0RF Hold Instructions: Resume on 03/08/25. Discontinued doxycycline hyclate 100 mg capsule 100 mg PO BID Rx Instructions: start 02/25 stop date 03/04/25 pregabalin 50 mg capsule 50 mg PO BID Discharge Orders: Discharge Order (Routine); Ordered 03/03/25 Ordered By: Cyndi Fajardo/Other Patient Handouts: A1C Admission Data Admit Date/Time: 02/26/25 09:12 Attending Provider: Cyndi Charles Admit Provider: Jay Roth Primary Care Provider: Mac Duncan Other Providers: Jay Roth; Wiliam Giraldo; Zion Fabian; Juan Manuel Henry; Eliazar Sadler I.; Travis Benitez II; Elvie Mckinney; Ryan Vogel; Denis Rios; Willard Lazar; Mac Duncan; Sissy Judge Other Interventions: Discharge Summary Assessment (RN) Last Done: 03/03/25 10:59
--- NOTE | 2025-03-05 13:16 | Coding Query ---
To promote full compliance with coding requirements relating to patient care, provider participation is requested in all cases of poultry boner uncertainty. Please assist us with the question(s) below: Coding Question(s): The diagnosis(es) below was documented in the record, then subsequently fell off all further documentation. Please indicate if it is still a possible diagnosis or ruled out. Physician's Response(s): SEPSIS (documented on ER with, "concerns for developing sepsis", and on H&P with, "Cellulitis RLE, sepsis with possible MRSA", and, "Presentation consistent with likely complex purulent cellulitis of RLE in setting of sepsis") ( x ) Diagnosed and POA ( ) Diagnosed and not POA ( ) Ruled out ( ) Other (please specify) ACUTE ON CHRONIC DIASTOLIC CONGESTIVE HEART FAILURE (regarding the ACUTE part of the Diastolic CHF - Documented on Addendum on the 03/01 Progress Note) ( x ) Diagnosed and POA ( ) Diagnosed and not POA ( ) Ruled out ( ) Other (please specify) DEMAND ISCHEMIA (Documented on Addendum on the 03/01 Progress Note) (x ) Diagnosed and POA ( ) Diagnosed and not POA ( ) Ruled out ( ) Other (please specify) MTDD
== END 2025-03-03 12:23 | DRG 871 ==
LOC: ED 05:29 → 2W 09:12 → SUATTDRO 09:12 → 2W 15:19